=== PATIENT | male | born 1955 | race Caucasian/White ===

== ENCOUNTER 2024-09-09 19:31 | Observation (INO) | payer MEDICARE, MEDICAID, SELFPAY ==
[2024-09-09] VITALS (35 sets, daily range): BP systolic 130–160; BP diastolic 80–90; PULSE 103–108; TEMP 37.3–38.1; O2SAT 71–99; BMI 31.9
--- NOTE | 2024-09-09 19:45 | XR_ITS ---
The [address] [address] Patient Name: SANA STANLEY MRN: [id number] date: 1955 Sex: M Assigned Patient Location: ER Current Patient Location: ED.MAIN Accession/Order Number: [id number] Exam Date: 09/09/2024 19:55 Report Date: 09/09/2024 21:43 At the request of: BRYANT VAUGHN Procedure: XR chest 1V EXAMINATION:XR chest 1V INDICATION:shortness of breath COMPARISON:06/16/2019 TECHNIQUE:A single frontal view of the chest is submitted. FINDINGS: The cardiac silhouette is enlarged but stable. The pulmonary vascularity is within normal limits. No acute airspace disease has developed in the lungs. There is no costophrenic angle blunting. Similar chronic deformities are present in each distal clavicle. XR/XR chest 1V IMPRESSION: No acute cardiopulmonary process in the chest. Electronically authenticated by: LAURA BARAJAS Date: 09/09/2024 21:43
[2024-09-09 20:03] LABS: pH ABG 7.326 (7.350-7.450)
[2024-09-09 20:04] LABS: Allen Test POSITIVE (POSITIVE); Base Excess ABG 0.6 mmol/L (-2.0-2.0); Fractionated Inspired Oxygen 100 %; HCO3 ABG 26.6 mmol/L (22.0-26.0); Liters per Minute 15; O2 Mode Non rebreather; Oxygen Saturation ABG 99.1 %
[2024-09-09 20:05] LABS: Puncture Site RR
[2024-09-09] MEDS: WATER FOR INJECTION, STERILE 20 ML VIAL INJ (20:10)
[2024-09-09 20:23] LABS: Basophils Percent Auto 0.5 % (0.2-2.0); Eosinophils Absolute Auto 0.1 10^3/uL (0.0-0.7); Eosinophils Percent Auto 2.2 % (0.9-7.0); Hematocrit 39.5 % (42.0-54.0); Immature Granulocytes Abs Auto 0.02 10^3/uL (0.00-0.03); Immature Granulocytes Pct Auto 0.3 % (0.0-0.5); Lymphocytes Absolute Auto 0.9 10^3/uL (1.2-3.8); Lymphocytes Percent Auto 15.9 % (20.5-60.0); Mean Corpuscular HGB Conc 32.9 g/dL (29.9-35.2); Mean Corpuscular Hemoglobin 31.6 pg (25.9-34.0); Mean Corpuscular Volume 96.1 fL (80.0-94.0); Mean Platelet Volume 9.7 fL (9.5-13.5); Monocytes Absolute Auto 0.7 10^3/uL (0.3-0.8); Monocytes Percent Auto 11.9 % (1.7-12.0); Neutrophils Absolute Auto 4.1 10^3/uL (1.4-6.5); Neutrophils Percent Auto 69.2 % (43.0-75.0); Platelet Count 166 10^3/uL (150-450); Red Blood Count 4.11 10^6/uL (4.70-6.10); Red Cell Distribution Width 12.8 % (11.0-15.0); White Blood Count 5.9 10^3/uL (4.0-11.0)
[2024-09-09 20:30] LABS: BUN Creatinine Ratio 12.5; Calcium 8.5 mg/dL (8.5-10.1); Carbon Dioxide 28.9 mmol/L (21.0-32.0); Chloride 106 mmol/L (98-107); Estimated GFR (African America >60 (>=60 mL/min/1.73m^2); Estimated GFR (Non-African Ame >60 (>=60 mL/min/1.73m^2); Glucose 156 mg/dL (74-106); Potassium 3.9 mmol/L (3.5-5.1); Sodium 141 mmol/L (136-145)
[2024-09-09 20:37] LABS: INR 1.08; Prothrombin Time 11.4 sec (9.0-11.6)
[2024-09-09] MEDS: TRAZODONE HCL 50 MG TABLET PO (20:50)
[2024-09-09] MEDS: OLANZapine 5 MG TABLET 10 MG PO (20:50)
--- NOTE | 2024-09-09 21:26 | ED_ITS ---
HPI - Epistaxis General Chief Complaint: Epistaxis Stated Complaint: EPISTAXIS Time Seen by Provider: 09/09/24 19:38 Source: patient and caregiver Mode of arrival: ambulance History of Present Illness HPI Narrative: 69-year-old male presents here with chief complaint of nosebleed. Patient presenting here by squad with an active nosebleed from the right nares. Nursing report was not given from the long term. Patient was coughing up small clots and large clots upon arrival here to the emergency room. Patient has no history of trauma or fall per his report. Related Data Home Medications ?Medication ?Instructions ?Recorded ?Confirmed albuterol sulfate 90 mcg/actuation 2 puff inhalation .4 times a day 09/09/24 09/09/24 aerosol inhaler aspirin 81 mg tablet,delayed 81 mg PO DAILY 09/09/24 09/09/24 release atorvastatin 40 mg tablet 40 mg PO DAILY 09/09/24 09/09/24 carbidopa 10 mg-levodopa 100 mg 1 tab PO TID 09/09/24 09/09/24 tablet famotidine 20 mg tablet 20 mg PO DAILY 09/09/24 09/09/24 finasteride 5 mg tablet 5 mg PO DAILY 09/09/24 09/09/24 ibuprofen 600 mg tablet (IBU) 600 mg PO Q8H PRN pain 09/09/24 09/09/24 lithium carbonate 150 mg capsule 150 mg PO BID 09/09/24 09/09/24 losartan 25 mg tablet 25 mg PO DAILY 09/09/24 09/09/24 olanzapine 10 mg tablet 10 mg PO DAILY 09/09/24 09/09/24 olanzapine 2.5 mg tablet 2.5 mg PO DAILY 09/09/24 09/09/24 propranolol 60 mg capsule,24 60 mg PO Q24H 09/09/24 09/09/24 hr,extended release rivastigmine tartrate 3 mg capsule 3 mg PO BID 09/09/24 09/09/24 tamsulosin 0.4 mg capsule 0.4 mg PO Q24H 09/09/24 09/09/24 trazodone 50 mg tablet 25 mg PO .nightly 09/09/24 09/09/24 Allergies Allergy/AdvReac Type Severity Reaction Status Date / Time No Known Drug Allergies Allergy Verified 09/09/24 19:38 Review of Systems ROS Narrative All Systems are negative except as noted/marked.All systems reviewed and otherwise negative Status of ROS 10 or more systems reviewed and unremark able except as noted in history and below [facility] Medical History (Updated 09/09/24 @ 21:22 by Solange Acosta RN) Unspecified convulsions ?R56.9 - Unspecified convulsions (ICD-10) Tremor ?R25.1 - Tremor, unspecified (ICD-10) Alcoholic cirrhosis of liver without ascites ?K70.30 - Alcoholic cirrhosis of liver without ascites (ICD-10) COPD (chronic obstructive pulmonary disease) ?J44.9 - Chronic obstructive pulmonary disease, unspecified (ICD-10) Parkinson disease ?G20.A1 - Parkinson's disease without dyskinesia, without mention of fluctuations (ICD-10) White matter disease ?R90.82 - White matter disease, unspecified (ICD-10) Benign prostatic hyperplasia ?N40.0 - Benign prostatic hyperplasia without lower urinary tract symptoms (ICD-10) Chronic kidney disease ?N18.9 - Chronic kidney disease, unspecified (ICD-10) Iliotibial band syndrome ?M76.30 - Iliotibial band syndrome, unspecified leg (ICD-10) GERD (gastroesophageal reflux disease) ?K21.9 - Gastro-esophageal reflux disease without esophagitis (ICD-10) Hypertension ?I10 - Essential (primary) hypertension (ICD-10) Obesity ?E66.9 - Obesity, unspecified (ICD-10) Wernicke encephalopathy ?E51.2 - Wernicke's encephalopathy (ICD-10) Schizo affective schizophrenia ?F25.9 - Schizoaffective disorder, unspecified (ICD-10) Exam Narrative Exam Narrative: Nurses note and vital signs reviewed and patient is not hypoxic. General: The patient appears well and in no apparent distress. Patient is resting comfortably on cart. Skin: Warm, dry, no pallor noted. There is no rash noted. Head: Normocephalic, atraumatic Ears, Nose, Mouth, and Throat: oral mucosa is moist.active bleeding right Nares patent. Mouth without vesicles. Ear canals patent. Tm's without Erythema Cardiovascular: Regular Rate and Rhythm Respiratory: Patient is in no distress, no accessory muscle use, lungs are clear to auscultation, no wheezing, rales or rhonchi Back: non-tender, no CVA tenderness bilaterally to percussion. Musculoskeletal: The patient has no evidence of calf tenderness, no pitting edema, symmetrical pulses noted bilaterally Neurological: A&O x4, normal speech Psychiatric: Cooperative Constitutional Vital Signs, click to edit/add: Last Vital Signs Temp 100.5 F H 09/09/24 19:34 Pulse 107 H 09/09/24 19:34 Resp 24 H 09/09/24 19:34 BP 160/90 H 09/09/24 20:12 Pulse Ox 93 L 09/09/24 21:07 O2 Del Method Nonrebreather 09/09/24 20:29 O2 Flow Rate 15 09/09/24 20:29 Course Vital Signs Vital signs: Vital Signs Temperature 100.5 F H 09/09/24 19:34 Pulse Rate 107 H 09/09/24 19:34 Respiratory Rate 24 H 09/09/24 19:34 Pulse Oximetry 71 L 09/09/24 19:34 Oxygen Delivery Method Room Air 09/09/24 19:34 Temperature 100.5 F H 09/09/24 19:34 Pulse Rate 107 H 09/09/24 19:34 Respiratory Rate 24 H 09/09/24 19:34 Blood Pressure 160/90 H 09/09/24 20:12 Pulse Oximetry 93 L 09/09/24 21:07 Oxygen Delivery Method Nonrebreather 09/09/24 20:29 Oxygen Delivery Flow Rate 15 09/09/24 20:29 MDM - Epistaxis MDM Narrative Medical decision making narrative: Patient presented to the emergency room with a chief complaint of a anterior nosebleed. Rhino Rocket was placed. Bleeding was then controlled. CBC and BMP were reviewed. Patient also had a blood gas drawn at the time and his CO2 level was 50. We have been using a nonrebreather mask to help keep his blood SpO2 saturations of 90%. Patient is very adamant and keeps calling out to nurse he is not in distress. He did remove one of the Rhino Rocket's and a new Rhino Rocket was replaced. Bleeding has been controlled. Admitted to the hospital for observation due to low SpO2 saturation. Patient is a DNR CC arrest. Patient is bleeding has stopped. Patient will be admitted for observation for epistaxis and hypoxia Differential Diagnosis Differential diagnosis: Likely anterior epistaxis Medical Records Attestation: I reviewed the patient's medical records. Lab Data Attestation: I reviewed the patient's lab results. Labs: Lab Results 09/09/24 09/09/24 Range/Units 19:49 19:55 WBC 5.9 (4.0-11.0) 10^3/uL RBC 4.11 L (4.70-6.10) 10^6/uL Hgb 13.0 L (14.0-18.0) g/dL Hct 39.5 L (42.0-54.0) % MCV 96.1 H (80.0-94.0) fL MCH 31.6 (25.9-34.0) pg MCHC 32.9 (29.9-35.2) g/dL RDW 12.8 (11.0-15.0) % Plt Count 166 (150-450) 10^3/uL MPV 9.7 (9.5-13.5) fL Neut % (Auto) 69.2 (43.0-75.0) % Lymph % (Auto) 15.9 L (20.5-60.0) % [place] % (Auto) 11.9 (1.7-12.0) % Eos % (Auto) 2.2 (0.9-7.0) % Baso % (Auto) 0.5 (0.2-2.0) % Neut # (Auto) 4.1 (1.4-6.5) 10^3/uL Lymph # (Auto) 0.9 L (1.2-3.8) 10^3/uL [place] # (Auto) 0.7 (0.3-0.8) 10^3/uL Eos # (Auto) 0.1 (0.0-0.7) 10^3/uL Baso # (Auto) 0.0 (0.0-0.1) 10^3/uL Abs Immat Gran (auto) 0.02 (0.00-0.03) 10^3/uL Imm/Tot Granulo (auto) 0.3 (0.0-0.5) % PT 11.4 (9.0-11.6) sec INR 1.08 Puncture Site Rr ABG pH 7.326 L (7.350-7.450) ABG pCO2 51.0 H* (35.0-45.0) mmHg ABG pO2 127.0 H (80.0-100.0) mmHg ABG HCO3 26.6 H (22.0-26.0) mmol/L ABG O2 Saturation 99.1 % ABG Base Excess 0.6 (-2.0-2.0) mmol/L Phong Test Positive (POSITIVE) O2 Liters/Min 15 FiO2 100 % Sodium 141 (136-145) mmol/L Potassium 3.9 (3.5-5.1) mmol/L Chloride 106 (98-107) mmol/L Carbon Dioxide 28.9 (21.0-32.0) mmol/L Anion Gap 10.0 BUN 12.0 (7.0-18.0) mg/dL Creatinine 0.96 (0.70-1.30) mg/dL Est GFR ( Amer) >60 (>=60 mL/min/1.73m^2) Est GFR (Non-Af Amer) >60 (>=60 mL/min/1.73m^2) BUN/Creatinine Ratio 12.5 Glucose 156 H (74-106) mg/dL Calcium 8.5 (8.5-10.1) mg/dL Discharge Plan Discharge Chief Complaint: Epistaxis Clinical Impression: Epistaxis, Hypoxia Patient Disposition: Admitted as Observation Time of Disposition Decision: 21:21 Condition: Good
[2024-09-10] VITALS (14 sets, daily range): BP systolic 110–201; BP diastolic 58–77; PULSE 98–119; TEMP 36.6–37.6; O2SAT 88–94; BMI 31.9
[2024-09-10] MEDS: TAMSULOSIN HCL 0.4 MG CAPSULE PO (00:48)
[2024-09-10] MEDS: TEMAZEPAM 15 MG CAPSULE PO (00:48)
[2024-09-10] MEDS: CARBIDOPA/LEVODOPA 10 MG/100 MG TABLET 1 TAB PO ×2 (00:48→05:05)
[2024-09-10] MEDS: ACETAMINOPHEN 325 MG TABLET 650 MG PO (00:49)
[2024-09-10] MEDS: 0.9 % SODIUM CHLORIDE 1,000 ML 100 ML IV (02:20)
[2024-09-10] MEDS: MULTIVITAMIN TABLET 1 TAB PO ×2 (02:21→09:21)
[2024-09-10] MEDS: FOLIC ACID 1 MG TABLET PO ×2 (02:21→09:21)
[2024-09-10] MEDS: CEFAZOLIN SODIUM/DEXTROSE,ISO 2 GM/50 ML PIGGYBACK IV ×2 (02:21→09:54)
[2024-09-10] MEDS: HYDRALAZINE HCL 20 MG/ML VIAL 10 MG IVP (05:17)
[2024-09-10] MEDS: ZIPRASIDONE MESYLATE 20 MG VIAL 10 MG IM (05:18)
[2024-09-10] MEDS: FENTANYL CITRATE/PF 100 MCG/2 ML VIAL 25 MCG IV (05:46)
--- NOTE | 2024-09-10 06:58 | PC.NURSE ---
Patient removed the Rhino Rocket at 0430. Called SEBASTIÁN Palacio. She said ER Physician would come up and put a new Rhino Rocket in. Patient bleeding profusely . Placed gauze in nose until ER Dr placed a new nasal rocket. Patient tolerated well. VSS
--- NOTE | 2024-09-10 08:36 | PC.NURSE ---
pt is more awake now and is jessie to answer some of this RN questions.
[2024-09-10] MEDS: LITHIUM CARBONATE 150 MG CAPSULE PO (09:21)
[2024-09-10] MEDS: FINASTERIDE 5 MG TABLET PO (09:21)
[2024-09-10] MEDS: LOSARTAN POTASSIUM 25 MG TABLET PO (09:21)
[2024-09-10] MEDS: FAMOTIDINE 20 MG TABLET PO (09:22)
[2024-09-10] MEDS: RIVASTIGMINE TARTRATE 1.5 MG CAPSULE 3 MG PO (09:30)
[2024-09-10] MEDS: OLANZapine 5 MG TABLET 2.5 MG PO (09:30)
[2024-09-10] MEDS: FUROSEMIDE 40 MG/4 ML VIAL IVP (10:17)
[2024-09-10] MEDS: PROPRANOLOL HCL 20 MG TABLET 60 MG PO (10:19)
[2024-09-10] MEDS: IPRATROPIUM/ALBUTEROL SULFATE 3 ML AMPUL.NEB IH (11:20)
--- NOTE | 2024-09-10 12:46 | P.HP_ITS ---
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 Patient was noted to be coughing up small blood clots when he arrived. ED Provider placed a Rhino rocket for epistaxis but last night patient was agitated and confused and pulled out. Another Rhino rocket was placed with that helped control his epistaxis. However, patient was noted to be hypoxic and was admitted overnight for observation. Patient's pulse ox was as low as 85% on RA and it is suspected that he may have aspirated some blood from epistaxis that resulted in mild COPD exacerbation causing hypoxia. Patient was confused/agitated at night and required use of antipsychotics and benzodiazepines to help him calm down. However, in the morning he was comfortable, calm and answered my questions appropriately. He was treated with duonebs and given one dose of IV lasix for COPD exacerbation. His hypoxia improved and he was comfortable on later in the afternoon. Rhino-rocket was removed and there was no evidence of nasal bleed. Will discharge patient with a short course of prednisone and oral doxycycline for COPD exacerbation and prevent aspiration PNA. Opioid HPI Opioid Management Most Recent Pain and Opioid Data: Last Pain Scale 8 09/10/24 05:46 09/10/24 Last Pain Assessment 09/10/24 12:16 Last MAR Pain Assessment 09/10/24 07:24 Last ORT Total Score 3 09/10/24 00:58 09/10/24 Last ORT Risk Category Low Risk 09/10/24 00:58 09/10/24 PFSH PFS Medical History (Updated 09/10/24 @ 12:48 by Shaikh Judie MD) HLD (hyperlipidemia) ?E78.5 - Hyperlipidemia, unspecified (ICD-10) Dementia ?F03.90 - Unspecified dementia, unspecified severity, without behavioral disturbance, psychotic disturbance, mood disturbance, and anxiety (ICD-10) Unspecified convulsions ?R56.9 - Unspecified convulsions (ICD-10) Tremor ?R25.1 - Tremor, unspecified (ICD-10) Alcoholic cirrhosis of liver without ascites ?K70.30 - Alcoholic cirrhosis of liver without ascites (ICD-10) COPD (chronic obstructive pulmonary disease) ?J44.9 - Chronic obstructive pulmonary disease, unspecified (ICD-10) Parkinson disease ?G20.A1 - Parkinson's disease without dyskinesia, without mention of fluctuations (ICD-10) White matter disease ?R90.82 - White matter disease, unspecified (ICD-10) Benign prostatic hyperplasia ?N40.0 - Benign prostatic hyperplasia without lower urinary tract symptoms (ICD-10) Chronic kidney disease ?N18.9 - Chronic kidney disease, unspecified (ICD-10) Iliotibial band syndrome ?M76.30 - Iliotibial band syndrome, unspecified leg (ICD-10) GERD (gastroesophageal reflux disease) ?K21.9 - Gastro-esophageal reflux disease without esophagitis (ICD-10) Hypertension ?I10 - Essential (primary) hypertension (ICD-10) Obesity ?E66.9 - Obesity, unspecified (ICD-10) Wernicke encephalopathy ?E51.2 - Wernicke's encephalopathy (ICD-10) Schizo affective schizophrenia ?F25.9 - Schizoaffective disorder, unspecified (ICD-10) Social History (Updated 09/10/24 @ 13:01 by Shaikh Judie MD) Within the past year, how often did you have a drink containing alcohol: never Score interpretation: A score less than 4 is consistent with normal alcohol consumption. Smoking status: Former smoker Non-prescribed substance use: denies use Highest level of school completed/degree received: decline to answer Meds Home Medications and Allergies Home Medications ?Medication ?Instructions ?Recorded ?Confirmed ?Type albuterol sulfate 90 mcg/actuation 2 puff inhalation .4 times a day 09/09/24 09/09/24 History aerosol inhaler aspirin 81 mg tablet,delayed 81 mg PO DAILY 09/09/24 09/09/24 History release atorvastatin 40 mg tablet 40 mg PO DAILY 09/09/24 09/09/24 History carbidopa 10 mg-levodopa 100 mg 1 tab PO TID 09/09/24 09/09/24 History tablet famotidine 20 mg tablet 20 mg PO DAILY 09/09/24 09/09/24 History finasteride 5 mg tablet 5 mg PO DAILY 09/09/24 09/09/24 History ibuprofen 600 mg tablet (IBU) 600 mg PO Q8H PRN pain 09/09/24 09/09/24 History lithium carbonate 150 mg capsule 150 mg PO BID 09/09/24 09/09/24 History losartan 25 mg tablet 25 mg PO DAILY 09/09/24 09/09/24 History olanzapine 10 mg tablet 10 mg PO .QHS 09/09/24 09/10/24 History olanzapine 2.5 mg tablet 2.5 mg PO DAILY 09/09/24 09/09/24 History rivastigmine tartrate 3 mg capsule 3 mg PO BID 09/09/24 09/09/24 History tamsulosin 0.4 mg capsule 0.4 mg PO Q24H 09/09/24 09/09/24 History trazodone 50 mg tablet 25 mg PO .nightly 09/09/24 09/09/24 History doxycycline hyclate 100 mg tablet 100 mg PO BID 7 days #14 tabs 09/10/24 Rx prednisone 20 mg tablet 20 mg PO BID #10 tabs 09/10/24 Rx propranolol 60 mg tablet 60 mg PO DAILY 09/10/24 09/10/24 History Allergies Allergy/AdvReac Type Severity Reaction Status Date / Time No Known Drug Allergies Allergy Verified 09/09/24 19:38 Exam Constitutional Vital Signs, click to edit/add: Last Vital Signs Temp 99.6 F 09/10/24 11:13 Pulse 119 H 09/10/24 11:22 Resp 20 09/10/24 08:14 BP 118/65 09/10/24 11:13 Pulse Ox 90 L 09/10/24 12:15 O2 Del Method Room Air 09/10/24 12:15 O2 Flow Rate 2 09/10/24 11:22 FiO2 50 09/09/24 21:46 Documenting provider has reviewed patient's vital signs: yes Common normals: no apparent distress and oriented x3 General appearance: cooperative HENMT Common normals: normocephalic and head/scalp atraumatic Head and scalp: normocephalic and atraumatic Other: rhinorocket in place. dried up blood noted. Eye Common normals: conjunctivae normal and no scleral icterus Conjunctiva: conjunctiva(e) normal Respiratory Common normals: normal respiratory effort Effort & inspection: able to speak in complete sentences Auscultation: wheezes Cardio Common normals: regular rate, S1 normal heart sound and S2 normal heart sound Rate: regular rate Heart sounds: S1 normal and S2 normal GI Common normals: Normal to inspection, nondistended, normoactive bowel sounds present, soft to palpation, non-tender and no hepatosplenomegaly Palpation: soft and no hepatosplenomegaly Extremity Common normals: no clubbing, cyanosis or edema Neuro Common normals: oriented x3, moves all extremities and no focal motor deficits Psych Common normals: mental status grossly normal, denies hallucinations, denies homicidal ideation and denies suicidal ideation Results Labs Labs: Short CBC 09/09/24 Range/Units 19:49 WBC 5.9 (4.0-11.0) 10^3/uL Hgb 13.0 L (14.0-18.0) g/dL Hct 39.5 L (42.0-54.0) % Plt Count 166 (150-450) 10^3/uL BMP 09/09/24 19:49 Sodium 141 Potassium 3.9 Chloride 106 Carbon Dioxide 28.9 BUN 12.0 Creatinine 0.96 Glucose 156 H Calcium 8.5 ABG ABG results: 09/09/24 19:55 ABG pH 7.326 L ABG pCO2 51.0 H* ABG pO2 127.0 H ABG HCO3 26.6 H ABG O2 Saturation 99.1 ABG Base Excess 0.6 Assessment and Plan Assessment and Plan (1) Anterior epistaxis: Assessment and Plan: Resolved. Outpatient f.u with ENT if recurrent. (2) Acute respiratory failure with hypoxia: Assessment and Plan: Likely due to aspiration and COPD exacerbation. Resolved. Now on RA. (3) COPD exacerbation: Assessment and Plan: Mild COPD exacerbation, improved with duonebs. Will discharge on Po Prednisone. C/w albuterol as needed. (4) Parkinson disease: Assessment and Plan: Stable. C/w home medications. Qualifiers: Dyskinesia presence: with dyskinesia Fluctuating manifestations: with fluctuating manifestations Qualified Code(s): G20.B2 - Parkinson's disease with dyskinesia, with fluctuations (5) Dementia: Assessment and Plan: C/w home medications. Qualifiers: Dementia behavioral or psychological symptom: with mood disturbance Dementia severity: moderate Dementia type: Parkinson's disease Qualified Code(s): G20.A1 - Parkinson's disease without dyskinesia, without mention of fluctuations; F02.B3 - Dementia in other diseases classified elsewhere, moderate, with mood disturbance (6) Benign prostatic hyperplasia: Assessment and Plan: Urinating w/o need for catheter. C/w home medications. Qualifiers: Lower urinary tract symptom detail: incomplete bladder emptying Lower urinary tract symptom presence: symptoms present Qualified Code(s): N40.1 - Benign prostatic hyperplasia with lower urinary tract symptoms; R39.14 - Feeling of incomplete bladder emptying (7) Hypertension: Assessment and Plan: Stable BP. c/w home medications Qualifiers: Hypertension type: primary hypertension Qualified Code(s): I10 - Essential (primary) hypertension (8) HLD (hyperlipidemia): Assessment and Plan: c/w lipitor. Qualifiers: Hyperlipidemia type: unspecified Qualified Code(s): E78.5 - Hyperlipidemia, unspecified Urinary Catheter Management Urinary Catheter Management Pure Wick: Cath placed during this visit: no
--- NOTE | 2024-09-10 15:21 | PC.NURSE ---
report given to taqueria at [facility], all questions answered
--- NOTE | 2024-09-21 15:39 | CM.DCFOLLOWU ---
Patient is from [facility]
== END 2024-09-10 15:26 ==
LOC: ER 21:22 → MS 09-10 00:24
PROVIDERS: Admitting Provider Internal Medicine; Emergency Provider Student in an Organized Health Care Education/Training Program; PCP Family Medicine; Visit Provider Internal Medicine
DX: J44.1 Chronic obstructive pulmonary disease with (acute) exacerbation (principal); J96.01 Acute respiratory failure with hypoxia; R04.0 Epistaxis; G20.B2 Parkinson's disease with dyskinesia, with fluctuations; F02.B3 Dementia in other diseases classified elsewhere, moderate, with mood disturbance; N40.1 Benign prostatic hyperplasia with lower urinary tract symptoms; R39.14 Feeling of incomplete bladder emptying; E78.5 Hyperlipidemia, unspecified; Z66 Do not resuscitate; I10 Essential (primary) hypertension; K21.9 Gastro-esophageal reflux disease without esophagitis; E66.9 Obesity, unspecified; F25.9 Schizoaffective disorder, unspecified; Z79.899 Other long term (current) drug therapy; Z79.82 Long term (current) use of aspirin; Z68.31 Body mass index [BMI] 31.0-31.9, adult; Z87.891 Personal history of nicotine dependence
CPT/HCPCS: 30905; 36415; 36600; 71045; 80048; 82140; 82805; 83735; 85025; 85610; 94640; 94667; 94761; 96365; 96366; 96372; 96375; 99285; G0378; J0360; J0690; J1940; J3010; J3486

== ENCOUNTER 2024-09-24 07:20 | Emergency (ER) | payer MEDICARE, MEDICAID, SELFPAY ==
[2024-09-24 07:25] VITALS: BP 142/78; PULSE 88; TEMP 36.8; O2SAT 96; BMI 34.2
--- NOTE | 2024-09-24 07:29 | XR_ITS ---
The [address] [address] Patient Name: SANA STANLEY MRN: [id number] date: 1955 Sex: M Assigned Patient Location: ED.MAIN Current Patient Location: ER Accession/Order Number: [id number] Exam Date: 09/24/2024 07:45 Report Date: 09/24/2024 08:00 At the request of: DAVID MULLER Procedure: XR chest 1V EXAM: XR chest 1V INDICATION: shortness of breath. COMPARISON: Chest x-ray 09/09/2024 TECHNIQUE: Single frontal view of the chest FINDINGS: Stable enlargement of the cardiac silhouette. Normal pulmonary vasculature. Mild bibasilar atelectasis. No acute infiltrate. No pleural effusion or pneumothorax. No acute osseous abnormality. XR/XR chest 1V IMPRESSION: No acute cardiopulmonary process. Electronically authenticated by: VICKEY DUNBAR Date: 09/24/2024 08:00
--- NOTE | 2024-09-24 07:29 | ECG_ITS ---
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
--- NOTE | 2024-09-24 07:32 | ED.SOB1 ---
HPI - SOB/Dyspnea General Chief Complaint: Shortness of Breath/Dyspnea Stated Complaint: OTHER Time Seen by Provider: 09/24/24 07:23 Source: EMR Mode of arrival: ambulance History of Present Illness HPI Narrative: pt brought in by EMS for evaluation after the nurse at [facility] reported that his O2 sat was low and he was having trouble breathing this morning. Pt has COPD and is a DNR-CC. he also has some behavioral issues and is apparently in a special [facility] the [facility]. He described recent cough/cold symptoms. Related Data Home Medications ?Medication ?Instructions ?Recorded ?Confirmed albuterol sulfate 90 mcg/actuation 2 puff inhalation .4 times a day 09/09/24 09/24/24 aerosol inhaler aspirin 81 mg tablet,delayed 81 mg PO DAILY 09/09/24 09/24/24 release atorvastatin 40 mg tablet 40 mg PO DAILY 09/09/24 09/24/24 carbidopa 10 mg-levodopa 100 mg 1 tab PO TID 09/09/24 09/24/24 tablet famotidine 20 mg tablet 20 mg PO DAILY 09/09/24 09/24/24 finasteride 5 mg tablet 5 mg PO DAILY 09/09/24 09/24/24 ibuprofen 600 mg tablet (IBU) 600 mg PO Q8H PRN pain 09/09/24 09/24/24 lithium carbonate 150 mg capsule 150 mg PO BID 09/09/24 09/24/24 losartan 25 mg tablet 25 mg PO DAILY 09/09/24 09/24/24 olanzapine 10 mg tablet 10 mg PO .QHS 09/09/24 09/24/24 olanzapine 2.5 mg tablet 2.5 mg PO DAILY 09/09/24 09/24/24 rivastigmine tartrate 3 mg capsule 3 mg PO BID 09/09/24 09/24/24 tamsulosin 0.4 mg capsule 0.4 mg PO Q24H 09/09/24 09/24/24 trazodone 50 mg tablet 25 mg PO .nightly 09/09/24 09/24/24 propranolol 60 mg tablet 60 mg PO DAILY 09/10/24 09/24/24 Allergies Allergy/AdvReac Type Severity Reaction Status Date / Time No Known Drug Allergies Allergy Verified 09/24/24 07:34 PFS PFS Medical History (Updated 09/24/24 @ 08:24 by Gary Estevez) HLD (hyperlipidemia) ?E78.5 - Hyperlipidemia, unspecified (ICD-10) Dementia ?F03.90 - Unspecified dementia, unspecified severity, without behavioral disturbance, psychotic disturbance, mood disturbance, and anxiety (ICD-10) Unspecified convulsions ?R56.9 - Unspecified convulsions (ICD-10) Tremor ?R25.1 - Tremor, unspecified (ICD-10) Alcoholic cirrhosis of liver without ascites ?K70.30 - Alcoholic cirrhosis of liver without ascites (ICD-10) COPD (chronic obstructive pulmonary disease) ?J44.9 - Chronic obstructive pulmonary disease, unspecified (ICD-10) Parkinson disease ?G20.A1 - Parkinson's disease without dyskinesia, without mention of fluctuations (ICD-10) White matter disease ?R90.82 - White matter disease, unspecified (ICD-10) Benign prostatic hyperplasia ?N40.0 - Benign prostatic hyperplasia without lower urinary tract symptoms (ICD-10) Chronic kidney disease ?N18.9 - Chronic kidney disease, unspecified (ICD-10) Iliotibial band syndrome ?M76.30 - Iliotibial band syndrome, unspecified leg (ICD-10) GERD (gastroesophageal reflux disease) ?K21.9 - Gastro-esophageal reflux disease without esophagitis (ICD-10) Hypertension ?I10 - Essential (primary) hypertension (ICD-10) Obesity ?E66.9 - Obesity, unspecified (ICD-10) Wernicke encephalopathy ?E51.2 - Wernicke's encephalopathy (ICD-10) Schizo affective schizophrenia ?F25.9 - Schizoaffective disorder, unspecified (ICD-10) Social History (Updated 09/10/24 @ 13:01 by Shaikh Judie MD) Within the past year, how often did you have a drink containing alcohol: never Score interpretation: A score less than 4 is consistent with normal alcohol consumption. Smoking status: Former smoker Non-prescribed substance use: denies use Highest level of school completed/degree received: decline to answer Little interest or pleasure in doing things: not at all Feeling down, depressed, or hopeless: not at all Exam Narrative Exam Narrative: Nurses notes and vital signs reviewed and patient is not hypoxic. afebrile General: Well-appearing and in no apparent distress. Skin: Warm, dry, no pallor noted. Head: Normocephalic, atraumatic. Neck: Supple, non-tender. Eye: Pupils are equal, round and EOMI. No scleral icterus. Ears, Nose, Mouth, and Throat: Oral mucosa is moist. He is slightly drooling. Cardiovascular: Regular Rate and Rhythm without murmur, gallop or rub. Respiratory: No accessory muscle use or respiratory distress. Lungs with scattered central rhonchi but otherwise clear. Musculoskeletal: normal ROM, no calf or popliteal tenderness, no lower extremity edema/swelling GI: Abdomen is soft, non-distended. Normal bowel sounds. No tenderness to palpation. No rebound, guarding, or rigidity noted. Neurological: A&O x4. No cranial nerve dysfunction observed. No truncal ataxia. Moves all extremities. Sensation intact. He has resting tremor. Psychiatric: Cooperative and interactive. Normal mood and affect. Constitutional Vital Signs, click to edit/add: Last Vital Signs Temp 98.2 F 09/24/24 07:25 Pulse 88 09/24/24 08:20 Resp 22 H 09/24/24 08:20 BP 142/78 H 09/24/24 07:25 Pulse Ox 94 L 09/24/24 08:20 O2 Del Method Nasal Cannula 09/24/24 08:20 O2 Flow Rate 2 09/24/24 08:20 Course Vital Signs Vital signs: Vital Signs Temperature 98.2 F 09/24/24 07:25 Pulse Rate 88 09/24/24 07:25 Respiratory Rate 22 H 09/24/24 07:25 Blood Pressure 142/78 H 09/24/24 07:25 Pulse Oximetry 96 09/24/24 07:25 Oxygen Delivery Method Nasal Cannula 09/24/24 07:25 Oxygen Delivery Flow Rate 3 09/24/24 07:25 Temperature 98.2 F 09/24/24 07:25 Pulse Rate 88 09/24/24 08:20 Respiratory Rate 22 H 09/24/24 08:20 Blood Pressure 142/78 H 09/24/24 07:25 Pulse Oximetry 94 L 09/24/24 08:20 Oxygen Delivery Method Nasal Cannula 09/24/24 08:20 Oxygen Delivery Flow Rate 2 09/24/24 08:20 MDM - SOB/Dyspnea MDM Narrative Medical decision making narrative: Patient was kept on O2 at 3LPM NC. He was placed on mechanical repair worker and EKG obtained. Blood drawn and sent for evaluation. Portable CXR obtained. He received IV Solumedrol 125mg. CBC unremarkable. CXR negative. BMP, troponin, BNP all normal. Pt is DNR-CC. He is resting comfortably and without respiratory distress at this time. Pt discharged back to [facility] with hand written Rx order for NC O2 to be applied prn if O2 sat drops below 95%. Lab Data Attestation: I reviewed the patient's lab results. Labs: Lab Results 09/24/24 Range/Units 07:51 WBC 10.6 (4.0-11.0) 10^3/uL RBC 4.34 L (4.70-6.10) 10^6/uL Hgb 13.4 L (14.0-18.0) g/dL Hct 42.1 (42.0-54.0) % MCV 97.0 H (80.0-94.0) fL MCH 30.9 (25.9-34.0) pg MCHC 31.8 (29.9-35.2) g/dL RDW 13.4 (11.0-15.0) % Plt Count 186 (150-450) 10^3/uL MPV 9.1 L (9.5-13.5) fL Neut % (Auto) 74.7 (43.0-75.0) % Lymph % (Auto) 17.4 L (20.5-60.0) % [place] % (Auto) 6.0 (1.7-12.0) % Eos % (Auto) 1.5 (0.9-7.0) % Baso % (Auto) 0.2 (0.2-2.0) % Neut # (Auto) 7.9 H (1.4-6.5) 10^3/uL Lymph # (Auto) 1.8 (1.2-3.8) 10^3/uL [place] # (Auto) 0.6 (0.3-0.8) 10^3/uL Eos # (Auto) 0.2 (0.0-0.7) 10^3/uL Baso # (Auto) 0.0 (0.0-0.1) 10^3/uL Abs Immat Gran (auto) 0.02 (0.00-0.03) 10^3/uL Imm/Tot Granulo (auto) 0.2 (0.0-0.5) % Sodium 145 (136-145) mmol/L Potassium 4.1 (3.5-5.1) mmol/L Chloride 108 H (98-107) mmol/L Carbon Dioxide 30.7 (21.0-32.0) mmol/L Anion Gap 10.4 BUN 15.0 (7.0-18.0) mg/dL Creatinine 0.85 (0.70-1.30) mg/dL Est GFR ( Amer) >60 (>=60 mL/min/1.73m^2) Est GFR (Non-Af Amer) >60 (>=60 mL/min/1.73m^2) BUN/Creatinine Ratio 17.6 Glucose 95 (74-106) mg/dL Calcium 8.7 (8.5-10.1) mg/dL Troponin I High Sens 4.6 (4.0-76.1) pg/mL NT-Pro-B Natriuret Pep 91.0 (<=900.0) pg/mL Imaging Data Chest x-ray: Attestation: I have reviewed the pertinent imaging results. Radiologist's impression: ITS Impressions Chest X-Ray 09/24/24 07:29 IMPRESSION: No acute cardiopulmonary process. Electronically authenticated by: VICKEY DUNBAR Date: 09/24/2024 08:00 ECG Data Attestation: I personally reviewed and interpreted this ECG as follows: Interpretation: EKG interpretation: Emergency Department physician interpretation. Normal sinus rhythm at 85bpm. Left axis deviation, normal intervals and non-specific t wave changes. no ST segment elevation or depression. Discharge Plan Discharge Chief Complaint: Shortness of Breath/Dyspnea Clinical Impression: Acute exacerbation of chronic obstructive pulmonary disease Patient Disposition: Home, Self-Care Time of Disposition Decision: 08:24 Prescriptions / Home Meds: No Action aspirin 81 mg tablet,delayed release (DR/EC) 81 mg PO DAILY atorvastatin 40 mg tablet 40 mg PO DAILY carbidopa-levodopa 10-100 mg tablet 1 tab PO TID famotidine 20 mg tablet 20 mg PO DAILY finasteride 5 mg tablet 5 mg PO DAILY lithium carbonate 150 mg capsule 150 mg PO BID losartan 25 mg tablet 25 mg PO DAILY ibuprofen [IBU] 600 mg tablet 600 mg PO Q8H PRN (Reason: pain) olanzapine 10 mg tablet 10 mg PO .QHS Rx Instructions: nightly olanzapine 2.5 mg tablet 2.5 mg PO DAILY rivastigmine tartrate 3 mg capsule 3 mg PO BID tamsulosin 0.4 mg capsule 0.4 mg PO Q24H trazodone 50 mg tablet 25 mg PO .nightly albuterol sulfate 90 mcg/actuation HFA aerosol inhaler 2 puff INHALATION .4 times a day propranolol 60 mg tablet 60 mg PO DAILY Patient Comments: HOLD FOR SBP < 100 OR PULSE < 60 doxycycline hyclate 100 mg tablet 100 mg PO BID 7 Days Qty: 14 0RF prednisone 20 mg tablet 20 mg PO BID Qty: 10 0RF Print Language: Frisian Instructions: COPD (Chronic Obstructive Pulmonary Disease) (ED) Referrals: RADHA PLUMMER [Primary Care Provider] - 1 week
[2024-09-24] MEDS: METHYLPREDNISOLONE SOD SUCC PF 125 MG/2 ML VIAL IVP (07:56)
[2024-09-24 07:57] LABS: Basophils Percent Auto 0.2 % (0.2-2.0); Eosinophils Absolute Auto 0.2 10^3/uL (0.0-0.7); Eosinophils Percent Auto 1.5 % (0.9-7.0); Hematocrit 42.1 % (42.0-54.0); Hemoglobin 13.4 g/dL (14.0-18.0); Immature Granulocytes Abs Auto 0.02 10^3/uL (0.00-0.03); Immature Granulocytes Pct Auto 0.2 % (0.0-0.5); Lymphocytes Absolute Auto 1.8 10^3/uL (1.2-3.8); Lymphocytes Percent Auto 17.4 % (20.5-60.0); Mean Corpuscular HGB Conc 31.8 g/dL (29.9-35.2); Mean Corpuscular Hemoglobin 30.9 pg (25.9-34.0); Mean Platelet Volume 9.1 fL (9.5-13.5); Monocytes Absolute Auto 0.6 10^3/uL (0.3-0.8); Neutrophils Absolute Auto 7.9 10^3/uL (1.4-6.5); Neutrophils Percent Auto 74.7 % (43.0-75.0); Platelet Count 186 10^3/uL (150-450); Red Blood Count 4.34 10^6/uL (4.70-6.10); Red Cell Distribution Width 13.4 % (11.0-15.0); White Blood Count 10.6 10^3/uL (4.0-11.0)
--- NOTE | 2024-09-24 08:03 | PC.NURSE ---
Oxygen decreased to 2 lpm/NC and pulse ox. is 92-94%, denies feeling SOB.
[2024-09-24 08:20] VITALS: PULSE 88; O2SAT 94
[2024-09-24 08:20] LABS: Anion Gap 10.4; BUN Creatinine Ratio 17.6; Calcium 8.7 mg/dL (8.5-10.1); Carbon Dioxide 30.7 mmol/L (21.0-32.0); Chloride 108 mmol/L (98-107); Estimated GFR (African America >60 (>=60 mL/min/1.73m^2); Estimated GFR (Non-African Ame >60 (>=60 mL/min/1.73m^2); Glucose 95 mg/dL (74-106); Potassium 4.1 mmol/L (3.5-5.1); Sodium 145 mmol/L (136-145); Troponin I High Sensitivity 4.6 pg/mL (4.0-76.1)
[2024-09-24 08:30] VITALS: PULSE 90; O2SAT 93
[2024-09-24 09:49] LABS: Bilirubin Urine NEGATIVE (NEGATIVE); Blood Urine NEGATIVE (NEGATIVE); Clarity Urine CLEAR (CLEAR); Color Urine LT. YELLOW (YELLOW); Glucose Urine UA NEGATIVE (NEGATIVE); Ketones Urine NEGATIVE (NEGATIVE); Leukocyte Esterase Urine TRACE (NEGATIVE); Nitrite Urine POSITIVE (NEGATIVE); Protein Urine NEGATIVE (NEG/TRACE); Specific Gravity Urine 1.015 (1.005-1.025); pH Urine >=9.0 (5.0-9.0)
[2024-09-24 09:52] LABS: Urine Microscopic Indicated YES
--- NOTE | 2024-09-24 09:54 | PC.NURSE ---
[facility] arrives at this time. Report called to nurse Kyle.
[2024-09-24 10:04] LABS: Crystals Seen? Seen #/HPF (None Seen); Triple Phosphate Crystal Urine MANY
[2024-09-24 10:05] LABS: Mucus Urine NONE SEEN (NONE SEEN); RBC Urine 0-2 #/HPF (0-2)
[2024-09-24 10:06] LABS: Amorphous Sediment Urine MODERATE; Bacteria Urine SMALL #/HPF (NONE SEEN); Cast Seen? NONE SEEN #/LPF (NONE SEEN); Squamous Epithelial Cell Urine RARE #/LPF (NONE/RARE); Urine Culture Indicated YES
[2024-09-26 17:24] LABS: BOX Test Reference Lab FIRELANDS
--- NOTE | 2024-09-29 12:02 | PC.NURSE ---
Urine culture results faxed to Dr. Macias for follow up and further treatment.
== END 2024-09-24 09:55 | disposition home or self-care (01) ==
PROVIDERS: Emergency Provider Emergency Medicine; PCP Family Medicine
DX: J44.1 Chronic obstructive pulmonary disease with (acute) exacerbation (principal); N39.0 Urinary tract infection, site not specified; Z66 Do not resuscitate; Z87.891 Personal history of nicotine dependence
CPT/HCPCS: 36415; 71045; 80048; 81001; 83880; 84484; 85025; 87086; 87150; 87186; 93005; 96374; 99285; J2919

== ENCOUNTER 2025-05-16 11:26 | Outpatient (REF) | payer MEDICARE, MEDICAID, SELFPAY ==
--- OUTSIDE RECORDS SUMMARY | 2025-05-16 11:32 | XMS_ITS | Encounter Summary ---
Author Organization [facility] Address [id number] [address] [place] [address] Care Team Providers Care Class A Lineman Name Role Phone Bon Aquino MD Primary Care Provider [phone] Encounter Details Date Type Department Care Team (Late st Contact Info) Description 12/04/2024 Orders Only [facility] - [facility] [address] [place] [address] Ref Prov, [place] [address] Social History Tobacco Use Types Packs/Day Years Used Date Smoking Tobacco: Never Assessed Childcare Answer Date Recorded Childcare Unknown 03/01/2019 Employment Answer Date Recorded Employment Unknown 03/01/2019 Purpose - Life Answer Date Recorded Purpose and direction in life Unknown Sex and Gender Information Value Date Recorded Sex Assigned at Not on file Legal Sex Male 11:34 AM EDT Gender Identity Not on file Sexual Orientation Not on file documented as of this encounter Plan of Treatment Not on file documented as of this encounter Procedures Procedure Name Priority Date/Time Associated Diagnosis Comments MULTIPLE LABS Routine 09/28/2024 4:20 PM EST documented in this encounter Results * Multiple labs (09/28/2024 4:20 PM EST) us Not In System Ref Prov TX IMAGING Final Res ult MANUALLY TRANSCRIBED RESULTS documented in this encounter Visit Diagnoses Not on filedocumented in this encounter Care Teams Class A Lineman Relationship Specialty Start Date End Date Bon Aquino MD PCP - General 02/05/16 documented as of this encounter
--- OUTSIDE RECORDS SUMMARY | 2025-05-16 11:32 | XMS_ITS | Clinical Summary ---
Author Organization [facility] Address [address] [place] [address] Care Team Providers Care Commercial Loan Underwriter Name Role Phone Unavailable Primary Care Provider Unavailabl e Social History Tobacco Use Types Packs/Day Years Used Date Smoking Tobacco: Never Assessed Sex and Gender Information Value Date Recorded Sex Assigned at Not on file Legal Sex Male 10:30 PM EDT Gender Identity Not on file Sexual Orientation Not on file Last Filed Vital Signs Vital Sign Reading Time Taken Comments Blood Pressure 133/85 04/05/2020 10:00 AM EDT Pulse 88 02/06/2019 11:05 AM EDT Temperature - - Respiratory Rate - - Oxygen Saturation 89% 04/05/2020 10:01 AM EDT Inhaled Oxygen Concentration - - Weight 77.6 kg (171 lb) 04/05/2020 9:56 AM EDT Height 170.2 cm (5' 7 ) 04/05/2020 9:53 AM EDT Body Mass Index 26.78 04/05/2020 9:53 AM EDT Plan of Treatment Not on file
--- OUTSIDE RECORDS SUMMARY | 2025-05-16 11:32 | XMS_ITS | Clinical Summary ---
Author Organization [facility] Address [id number] [place] [address] Care Team Providers Care Director Systems Name Role Phone Bon Aquino MD Primary Care Provider [phone] Allergies No known active allergies Medications albuterol (VENTOLIN HFA) 90 mcg/actuation inhaler Inhale 2 puffs 4 (four) times a day. 6 Active carbidopa-levod opa (SINEMET CR) 50-200 mg per CR tablet Take 1 tablet by mouth 2 (two) times a day. 6 Active selegiline (ELDEPRYL) 5 mg capsule Take 5 mg by mouth 2 (two) times a day before meals. 6 Active lithium (ESKALITH) 450 mg CR tablet Take 450 mg by mouth daily. 6 Active lithium carbonate 300 mg capsule Take 600 mg by mouth respiratory nightly. 6 Active trihexyphenidyl (ARTANE) 5 mg tablet Take 5 mg by mouth 3 (three) times a day with meals. 6 Active nabumetone (RELAFEN) 750 mg tablet Take 1,500 mg by mouth daily. 6 Active finasteride (PROSCAR) 5 mg tablet Take 5 mg by mouth daily. 6 Active tamsulosin (FLOMAX) 0.4 mg capsule,extende d release 24hr Take 0.4 mg by mouth daily. 30min after meal 6 Active Active Problems Problem Noted Date Diagnosed Date Unspecified protein-calorie malnutrition 024 Schizoaffective disorder 06/23/2024 Wernicke's encephalopathy 06/23/2024 Chronic obstructive pulmonary disease 06/23/2024 Parkinson's disease 06/23/2024 Nicotine dependence, cigarettes, uncomplicated 1 Extrapyramidal and movement disorder, unspecifie d 06/23/2024 Iliotibial band syndrome 06/23/2024 Stage 2 chronic kidney disease due to benign hyp ertension 06/23/2024 Class 1 obesity due to exces s calories with serious comorbidity in adult 06/23/2024 Convulsions 06/23/2024 BPH with lower urinary tract symptoms without urinary obstruction 06/23/2024 White matter disease 06/23/2024 Gastroesophageal reflux disease 06/23/2024 Cognitive impairment 06/23/2024 Encounters Date Type Department Care Team Description 04/20/2025 Continuing Care [facility] - [facility] [address] [place] [address] Fabien Macias, Wernicke's encephalopathy (Primary Dx); Cognitive impairment; Schizoaffective disorder, unspecified type ([facility]); Parkinson's disease, unspecified whether dyskinesia present, unspecified whether manifestations fluctuate ([facility]); Chronic obstructive pulmonary disease, unspecified COPD type ([facility]) 04/10/2025 Continuing Care [facility] - [facility] [address] [place] [address] Fabien Macias, Wernicke's encephalopathy (Primary Dx); Parkinson's disease, unspecified whether dyskinesia present, unspecified whether manifestations fluctuate ([facility]); Chronic obstructive pulmonary disease, unspecified COPD type ([facility]) 03/09/2025 Continuing Care [facility] - [facility] [address] [place] [address] Fabien Macias DO Chronic obstructive pulmonary disease, unspecified COPD type ([facility]) (Primary Dx); Wernicke's encephalopathy; Parkinson's disease, unspecified whether dyskinesia present, unspecified whether manifestations fluctuate ([facility]) from Last 3 Months Social History Tobacco Use Types Packs/Day Years [...] Sign Reading Time Taken Comments Blood Pressure 108/74 04/20/2025 3:50 PM EDT Pulse 92 04/20/2025 3:50 PM EDT Temperature 36.6 C (97.8 F) 04/20/2025 3:50 PM EDT Respiratory Rate 18 04/20/2025 3:50 PM EDT Oxygen Saturation 94% 04/20/2025 3:50 PM EDT Inhaled Oxygen Concentration - - Weight 93.9 kg (207 lb) 04/20/2025 3:50 PM EDT Height 170.2 cm (5' 7 ) 02/08/2016 9:00 AM EDT Body Mass Index 32.42 02/08/2016 9:00 AM EDT Plan of Treatment Health Maintenance Due Date Last Done Comments Depression Screening 1967 Tobacco Screening 1965 DTaP,Tdap and Td Vaccines (1 - Tdap) 1972 Zoster (Shingles) Vaccine (1 of 2) 2003 Fall Risk Screening 2018 Influenza Vaccine 05/21/2025 Adult BMI Screening 04/10/2026 04/20/2025 Medical Devices Not on file Insurance MEDICAID [place] [employer] MEDICARE Care Teams Director Systems Relationship Specialty Start Date End Date Bon Aquino MD PCP - General 02/05/16
--- OUTSIDE RECORDS SUMMARY | 2025-05-16 11:33 | XMS_ITS | Encounter Summary ---
Author Organization [facility] Address [id number] [address] [place] [address] Care Team Providers Care Grants And Contracts Assistant Name Role Phone Bon Aquino MD Primary Care Provider [phone] Encounter Details Date Type Department Care Team (Late st Contact Info) Description 09/25/2024 Orders Only [facility] - Family Medicine [address] [place] [address] Ref Prov, [place] [address] Social History Tobacco Use Types Packs/Day Years [...] Procedure Name Priority Date/Time Associated Diagnosis Comments XR CHEST 1 VW Routine 09/24/2024 3:23 PM EST ECG 12-LEAD Routine 09/24/2024 3:20 PM EST documented in this encounter Results * X-ray chest 1 view (09/24/2024 3:23 PM EST) Anatomical Region Laterality Modality Body, Chest N/A Computed Radiogr aphy us Not In System Ref Prov IMG DIAGNOSTIC IMAGING OR DERABLES Final Result * ECG 12 lead (09/24/2024 3:20 PM EST) us Not In System Ref Prov ECG ORDERABLES Final Res ult MANUALLY TRANSCRIBED RESULTS documented in this encounter Visit Diagnoses Not on filedocumented in this encounter Care Teams Grants And Contracts Assistant Relationship Specialty Start Date End Date Bon Aquino MD PCP - General 02/05/16 documented as of this encounter
--- OUTSIDE RECORDS SUMMARY | 2025-05-16 12:28 | XMS_ITS | CCD ---
Author Organization [facility] Care Team Providers Care Piercing Specialist Name Role Phone PIYUSH KEANE Primary Care Unavailable SERAFIN, SARAH Admitting Unavailable SERAFIN, SARAH Attending Unavailable LUIS MANUEL BARROS V Consulting Unavailable MIR CUENCA Consulting Unavailable HEMEYER, EDGUADALUPE Primary Care Unavailable SERAFIN, SARAH Admitting Unavailable SERAFIN, SARAH Attending Unavailable SANAM GRUBBS Consulting Unavailable SERAFIN, SARAH Consulting Unavailable HEMEYER, EDWARD Admitting Unavailable ALEJANDRINAYER, PIYUSH Attending Unavailable LAKHWINDER, PIYUSH Consulting Unavailable Unavailable Primary Care Provider UnavailMiguel Marcus MD Primary Care Provider Piyush Keane MD Primary Care Provider Piyush Keane MD Primary Care Provider [phone] Piyush Keane MD Primary Care Provider Miguel Kessler MD Primary Care Provider [phone] Piyush Keane MD Primary Care Provider Miguel Kessler Unavailable Unavaila ble Manuela Gary Unavailable Ben Ramires Unavailable MIGUEL KESSLER Primary Care Unavailable MIGUEL KESSLER Attending Unavailable SELF, SELF Referring Unavailable MIGUEL KESSLER Primary Care Unavailable MIGUEL KESSLER Attending Unavailable SELF, SELF Referring Unavailable MIGUEL KESSLER Attending Unavailable SELF, SELF Referring Unavailable CHECO, MIGUEL Kaiser Primary Care Unavailable MIGUEL KESSLER Attending Unavailable SELF, SELF Referring Unavailable CHECO, MIGUEL Kaiser Primary Care Unavailable DAVIS BALES Attending Unavailable CHECO, MIGUEL Kaiser Primary Care Unavailable JACKOGEDARRELL, MIGUEL Kaiser Primary Care Unavailable MATT CALDWELL Attending Unavailable KALOGEROUMIGUEL Primary Care Unavailable KALOGEROU, MIGUEL Kaiser Attending Unavailable SELF, SELF Referring Unavailable KALOGEROU, MIGUEL Kaiser Primary Care Unavailable KALOGEROU, MIGUEL Kaiser Attending Unavailable SELF, SELF Referring Unavailable Piyush Keane MD Primary Care Provider [phone] LAKHWINDER, PIYUSH Multani Primary Care Unavailable ISRRAEL SUZANNE Attending Unavailable HEMEYER, PIYUSH Multani Primary Care Unavailable AGIRO, RJ Attending Unavailable WOLERY, MAVIS S Attending Unavailable WOLERY, MAVIS S Referring Unavailable HEMEYER, PIYUSH Multani Primary Care Unavailable WOLERY, MAVIS Jones Attending Unavailable WOLERY, MAVIS Jones Referring Unavailable HEMEYER, PIYUSH Multani Primary Care Unavailable WOLERY, MAVIS Jones Attending Unavailable WOLERY, MAVIS Jones Referring Unavailable HEMEYER, PIYUSH Multani Primary Care Unavailable WOLERY, MAVIS Jones Attending Unavailable WOLERY, MAVIS Jones Referring Unavailable HEMEYER, PIYUSH Multani Primary Care Unavailable WOLERY, MAVIS Jones Attending Unavailable WOLERY, MAVIS Jones Referring Unavailable HEMEYER, PIYUSH Multani Primary Care Unavailable HEMEYER, PIYUSH Multani Primary Care Unavailable HEMEYER, PIYUSH Multani Primary Care Unavailable HEMEYER, PIYUSH Multani Primary Care Unavailable AGIRO, RJ Attending Unavailable KALOGEROU, MIGUEL Primary Care Unavailable GENNARO TURCIOS Consulting Unavailable BIRDI, BEN Admitting Unavailable BIRDIBEN Attending Unavailable BIRDOwen, EBN Referring Unavailable MANUELA GARY Consulting Unavailable KALOGEDARRELL, MIGUEL Primary Care Unavailable MALOU RAMIRESET Referring Unavailable MANUELA GARY Attending Unavailable KALMIGUEL KUMAR Attending Unavaila ble KALOGEROU, MIGUEL BOOTH Primary Care Unavaila ble KALOGEROU, MIGUEL BOOTH Attending Unavaila ble KALOGEROU, MIGUEL BOOTH Primary Care Unavaila ble KALOGEROU, MIGUEL EMONY Primary Care Unavaila ble KALOGEROUMIGUEL Attending Unavaila ble Gary Estevez DO Attending Provider Gary Estevez Admitting Unavailable Gary Estevez Attending Unavailable Jared Downey Admitting Unavailab le Jared Downey Attending Unavailab le NON STAFF Primary Care Unavailable Piyush Keane MD Primary Care Provider Piyush Keane MD Primary Care Provider [phone] Hemeyer MD, Edward J Primary Care Provider Medications Current Medications Medication Drug Class(es) Dates Sig (Normalized) Sig (Original) acetaminophen 325 mg oral tablet (19 sources) Start: 06-11-2023 acetaminophen (TYLENOL) tablet 650 mg Start: 09-18-2022 acetaminophen (TYLENOL) tablet 650 mg Start: 09-18-2022 acetaminophen (TYLENOL) tablet 1,000 mg Start: 02-10-2022 take 2 tablets by mo uth every four hours as needed acetaminophen (Tylenol) 325 MG tablet Take 2 tablets by mouth every 4 hours as needed for Mild Pain. 60 tablet 5 02/10/2022 Active Start: 04-14-2021 acetaminophen (TYLENOL) 325 MG tablet [id number] actuat albuterol 0.09 mg/actuat metered dose inhaler (20 sources) beta2-Adrenergic Agonist Start: 09-19-2022 End: 09-19-2022 albuterol sulfate HFA (PROVENTIL;VENTOLIN;PROAIR) 108 (90 Base) MCG/ACT inhaler 2 puff Start: 02-08-2016 take 2 puff(s) by in halation four times daily albuterol (VENTOLIN HFA) 90 mcg/actuation inhaler Inhale 2 puffs 4 (four) times a day. 02/08/2016 Active take 2 puff(s) by mo uth four times daily albuterol sulfate HFA (VENTOLIN HFA) 108 (90 Base) MCG/ACT inhaler Ventolin HFA 90 mcg/actuation aerosol inhaler INHALE 2 PUFFS BY MOUTH 4 TIMES DAILY AT 9AM, 1PM, 5PM, AND 9PM 0 Active take 2 puff(s) by in halation four times daily Ventolin 90 mcg/inh inhalation aerosol ; 2 puff(s) inhaled 4 times a day Refills: 0 Ordered: 12-Jun-2023 Yancy Vizcarra Generic Substitution Allowed amoxicillin 875 mg / clavulanate 125 mg oral tablet (1 source) Penicillin-class Antibacterial Start: 09-23-2022 End: 09-30-2022 take 1 tablet by mouth twice daily amoxicillin-clavulanate (AUGMENTIN) 875-125 MG per tablet Take 1 tablet by mouth 2 times daily for 7 days 14 tablet 0 09/23/2022 09/30/2022 Active aspirin 81 mg delayed release oral tablet (20 sources) Platelet Aggregation Inhibitor, Nonsteroidal Anti-inflammatory Drug Start: 10-31-2021 take 1 tablet by mouth once daily aspirin EC 81 MG EC tablet Take 1 tablet by mouth daily 30 tablet 0 10/31/2021 Active atorvastatin 40 mg oral tablet (17 sources) HMG-CoA Reductase Inhibitor Start: 10-31-2021 take 1 tablet by mouth once daily atorvastatin (LIPITOR) 40 MG tablet Take 1 tablet by mouth daily 30 tablet 0 10/31/2021 Active azithromycin 250 mg oral tablet (1 source) Macrolide Antimicrobial Start: 09-23-2022 End: 09-28-2022 azithromycin (ZITHROMAX) 250 MG tablet Indications: COPD exacerbation (HCC) Take 1 tablet by mouth See Admin Instructions for 5 days 500mg on day 1 followed by 250mg on days 2 - 5 6 tablet 0 09/23/2022 09/28/2022 Active busPIRone hydrochloride 10 mg oral tablet (13 sources) Start: 02-17-2023 take 1 tablet by mouth three times daily busPIRone 10 MG tablet Take 1 tablet by mouth 3 times daily. 0 02/17/2023 Active carbidopa 50 mg / levodopa 200 mg extended release oral tablet (20 sources) Aromatic Amino Acid Decarboxylation Inhibitor, Aromatic Amino Acid Start: 05-09-2021 carbidopa-levodopa (SINEMET CR) 50-200 MG per extended release tablet Start: 02-08-2016 take 1 tablet by duglas th twice daily carbidopa-levodopa (SINEMET CR) 50-200 mg per CR tablet Take 1 tablet by mouth 2 (two) times a day. 02/08/2016 Active 0.3 ml enoxaparin sodium 100 mg/ml prefilled syringe (1 source) Low Molecular Weight Heparin Start: 09-19-2022 enoxaparin Sodium (LOVENOX) injection 30 mg finasteride 5 mg oral tablet (20 sources) 5-alpha Reductase Inhibitor Start: 02-08-2016 take 1 tablet by mouth once daily finasteride (PROSCAR) 5 mg tablet Take 5 mg by mouth daily. 02/08/2016 Active 60 actuat formoterol fumarate 0.005 mg/actuat / mometasone furoate 0.2 mg/actuat metered dose inhaler (1 source) Corticosteroid, beta2-Adrenergic Agonist Start: 09-19-2022 mometasone-formot josias (DULERA) 200-5 MCG/ACT inhaler 2 puff hydrOXYzine pamoate 25 mg oral capsule (13 sources) Antihistamine take 1 capsule by mouth once daily hydrOXYzine pamoate (VISTARIL) 25 MG capsule Take 25 mg by mouth nightly 0 Active lithium carbonate 300 mg extended release oral tablet (20 sources) Start: 09-19-2022 lithium (LITHOBID) extended release tablet 300 mg Start: 02-08-2016 take 2 capsules by m outh once daily lithium carbonate 300 mg capsule Take 600 mg by mouth respiratory nightly. 02/08/2016 Active Start: 02-08-2016 take 1 tablet by duglas th once daily lithium (ESKALITH) 450 mg CR tablet Take 450 mg by mouth daily. 02/08/2016 Active take 1 capsule by mo uth twice daily at mealtime lithium 300 MG capsule Take 300 mg by mouth 2 times daily with meals. 0 Active take 1 tablet by duglas th twice daily lithium 450 mg oral tablet, extended release ; 1 tab(s) orally 2 times a day Refills: 0 Ordered: 12-Jun-2023 Carmita Dovydas Generic Substitution Allowed End: 09-19-2022 take 1 tablet by mouth twice daily lithium 300 MG tablet lithium carbonate 300 mg tablet Take 1 tablet twice a day by oral route. 0 09/19/2022 Discontinued (LIST CLEANUP) loperamide hydrochloride 2 mg oral capsule (1 source) Opioid Agonist take 1 capsule by mouth once loperamide 2 mg oral capsule ; 2 cap(s) orally once as needed for diarrhea after consistent loose stool, them 1 capsule after each loose stool Refills: 0 Ordered: 12-Jun-2023 Carmita Dovydas Generic Substitution Allowed LORazepam 1 mg oral tablet (20 sources) Benzodiazepine Start: 02-24-2023 take 1 tablet by mouth at bedtime LORazepam 1 MG tablet Take 1 tablet by mouth at bedtime. 0 02/24/2023 Active Start: 02-08-2023 take 1 tablet by duglas th twice daily LORazepam 0.5 MG tablet Take 1 tablet by mouth 2 times daily. 0 02/08/2023 Active 50 ml magnesium sulfate 40 mg/ml injection (1 source) Start: 09-18-2022 take 2000 mg intravenously every hour as needed 2,000 mg, IntraVENous, at 25 mL/hr, Administer over 2 Hours, PRN, Other, Magnesium Replacement, Starting on Wed09/18/22 at 2033 Mg Lab Replacement Action 1.4-1.6 2 gram IVPB x 1 doses (2 grams total) 1.0-1.3 2 gram IVPB x 2 doses (4 grams total) Less than 1.0 CALL PHYSICIAN and 2 gram IVPB x 2 doses (4 grams total) Infuse at 1 gram/hr. Repeat Mag level next AM. Not for use in Patients with CrCl less than 30 mL/min. nabumetone 750 mg oral tablet (17 sources) Nonsteroidal Anti-inflammator y Drug Start: 02-08-2016 take 2 tablets by mouth once daily nabumetone (RELAFEN) 750 mg tablet Take 1,500 mg by mouth daily. 02/08/2016 Active OLANZapine 10 mg oral tablet (20 sources) Atypical Antipsychotic Start: 05-09-2021 OLANZapine (ZYPREXA) 10 MG tablet Start: 02-08-2016 End: 06-23-2024 take 2 tablets by mouth once daily OLANZapine (ZyPREXA) 10 mg tablet Take 20 mg by mouth nightly. 02/08/2016 06/23/2024 Discontinued (Therapy completed) take 1 tablet by duglas once daily OLANZapine (ZYPREXA) 2.5 MG tablet Take 1 tablet by mouth nightly 0 Active ondansetron (ZOFRAN-ODT) disintegrating tablet 4 mg (1 source) Start: 09-18-2022 ondansetron (Z OFRAN-ODT) disintegrating tablet 4 mg Potassium Chloride (1 source) Start: 09-18-2022 potassium chlo ride (KLOR-CON M) extended release tablet 40 mEq predniSONE 20 mg oral tablet (2 sources) Start: 09-24-2022 End: 09-26-2022 take 2 tablets by mouth once daily predniSONE (DELTASONE) 20 MG tablet Take 2 tablets by mouth daily for 2 days 4 tablet 0 09/24/2022 09/26/2022 Active Start: 09-20-2022 predniSONE (DE LTASONE) tablet 40 mg 24 hr propranolol hydrochloride 60 mg extended release oral capsule (2 sources) beta-Adrenergic Екатерина take 1 capsule by mouth once daily propranolol (INDERAL LA) 60 MG extended release capsule Take 1 capsule by mouth daily 0 Active 24 hr rivastigmine 0.192 mg/hr transdermal system (1 source) apply 1 dose transdermal route once daily Exelon 4.6 mg/24 hr transdermal film, extended release ; 1 patch transdermally once a day Refills: 0 Ordered: 12-Jun-2023 Yancy Vizcarra Generic Substitution Allowed selegiline hydrochloride 5 mg oral capsule (20 sources) Monoamine Oxidase Inhibitor, Monoamine Oxidase Type B Inhibitor Start: 016 take 1 capsule by mouth twice daily before mealtime selegiline (ELDEPRYL) 5 mg capsule Take 5 mg by mouth 2 (two) times a day before meals. 02/08/2016 Active 1000 ml sodium chloride 9 mg/ml injection (5 sources) Start: 023 0.9 % sodium chloride infusion Start: 09-18-2022 IntraVENous, a t 5-250 mL/hr, PRN, if patient receiving piggyback infusions and maintenance fluids are not ordered OR KVO fluids to protect IV site / prevent frequent line interruptions/ long duration, Starting on Wed09/18/22 at 2032 For piggyback infusion, administer at same rate as piggyback for a total of 25 mL. Enter 25 mL into dose field and piggyback rate into rate field of order. If piggyback is infusing at a rate less than 100 mL/hr, enter 25 mL into dose field and 100 mL/hr into rate field of order. For KVO fluids, enter rate of 20 mL/hr or less into rate field of order. Start: 09-18-2022 take 1 dose intraven ously twice daily 5-40 mL, IntraVENous, EVERY 12 HOURS SCHEDULED (2 times per day), First dose on Wed09/18/22 at 2100, Until Discontinued For Line Patency: Peripheral IV = 5 mL; Midline or Central Line = 10 mL/lumen. If following IV push medication, administer flush at same rate as the IV push. Flush volume is determined by type of infusion therapy being given. For non-viscous solutions use: Peripheral IV = 5 mL Midline or Central Line = 10 mL/lumen For viscous solutions (i.e. blood components, parenteral nutrition, contrast media, or after obtaining blood sample) use: Peripheral IV = 10 mL Midline or Central Line = 20 mL/lumen Start: 09-18-2022 take 5-40 mL intrave nously once as needed 5-40 mL, IntraVENous, PRN, Starting on Wed09/18/22 at 2032, Until Discontinued, Line Care, After every IV line use For Line Patency: Peripheral IV = 5 mL; Midline or Central Line = 10 mL/lumen. If following IV push medication, administer flush at same rate as the IV push. Flush volume is determined by type of infusion therapy being given. For non-viscous solutions use: Peripheral IV = 5 mL Midline or Central Line = 10 mL/lumen For viscous solutions (i.e. blood components, parenteral nutrition, contrast media, or after obtaining blood sample) use: Peripheral IV = 10 mL Midline or Central Line = 20 mL/lumen Start: 09-18-2022 End: 09-18-2022 0.9 % sodium chloride bolus tamsulosin hydrochloride 0.4 mg oral capsule (20 sources) alpha-Adrenergic Екатерина Start: 02-08-2016 take 1 capsule by mouth once daily 30 minutes after mealtime tamsulosin (FLOMAX) 0.4 mg capsule,extended release 24hr Take 0.4 mg by mouth daily. 30min after meal 02/08/2016 Active traZODone hydrochloride 50 mg oral tablet (8 sources) Serotonin Reuptake Inhibitor Start: 02-17-2023 take 1 tablet by mouth at bedtime traZODone 50 MG tablet Take 1 tablet by mouth at bedtime. 0 02/17/2023 Active take 1.5 tablets by mouth once daily at bedtime traZODone 50 mg oral tablet ; 1.5 tab(s) orally once a day (at bedtime) TOTAL DOSE 75MG Refills: 0 Ordered: 12-Jun-2023 Carmita jerardo Generic Substitution Allowed trihexyphenidyl hydrochloride 5 mg oral tablet (17 sources) Start: 02-08-2016 take 1 tablet by mouth three times daily at mealtime trihexyphenidyl (ARTANE) 5 mg tablet Take 5 mg by mouth 3 (three) times a day with meals. 02/08/2016 Active Completed/Discontinued Medications Medication Drug Class(es) Dates Sig (Normalized) Sig (Original) acetaminophen 325 mg / HYDROcodone bitartrate 5 mg oral tablet (1 source) Opioid Agonist Start: 02-24-2023 End: 02-24-2023 HYDROcodone-acetam inophen (NORCO) 5-325 MG per tablet 1 tablet Start: 02-24-2023 End: 02-24-2023 HYDROcodone-acetaminophen (N ORCO) 5-325 MG per tablet 1 tablet albuterol 0.833 mg/ml / ipratropium bromide 0.167 mg/ml inhalation solution (2 sources) Anticholinergic, beta2-Adrenergic Agonist Start: 09-18-2022 1 ampule, Inhal ation, EVERY 4 HOURS PRN, Starting on Wed09/18/22 at 2033, Until Discontinued, Shortness of Breath Initiate RT Bronchodilator Protocol: Yes - ED protocol Start: 09-18-2022 End: 09-18-2022 ipratropium-albuterol (DUONE B) nebulizer solution 1 ampule famotidine 20 mg oral tablet (20 sources) Histamine-2 Receptor Antagonist Start: 09-19-2022 take 20 mg by mouth once daily 20 mg, Oral, DAILY, First dose on Wed09/19/22 at 0900, Until Discontinued iopamidol (ISOVUE-370) 76 % injection 80 mL (3 sources) Start: 02-05-2024 End: 02-05-2024 iopamidol (ISOVUE-370) 76 % injection 80 mL Start: 02-19-2023 End: 02-19-2023 iopamidol (ISOVUE-370) 76 % injection 80 mL Start: 09-23-2022 End: 09-23-2022 iopamidol (ISOVUE-370) 76 % injection 80 mL losartan potassium 25 mg oral tablet (20 sources) Angiotensin 2 Receptor Екатерина Start: 09-19-2022 take 25 mg by mouth once daily 25 mg, Oral, DAILY, First dose on 09/19/22 at 0900, Until Discontinued methylPREDNISolone 40 mg injection (2 sources) Corticosteroid Start: 09-18-2022 End: 09-19-2022 40 mg, IntraVENous, DAILY, First dose on 09/19/22 at 0900 1 ml morphine sulfate 4 mg/ml cartridge (1 source) Opioid Agonist Start: 02-19-2023 End: 02-19-2023 morphine (PF) injection 4 mg Start: 02-19-2023 End: 02-19-2023 morphine (PF) injection 4 mg oseltamivir 75 mg oral capsule (1 source) Neuraminidase Inhibitor Start: 09-18-2022 End: 09-23-2022 75 mg, Oral, 2 TIMES DAILY, 10 doses, First dose on Wed09/18/22 at 2100, Last dose on Wed09/23/22 at 0900 polyethylene glycol [id number] mg powder for oral solution (1 source) Osmotic Laxative Start: 09-18-2022 17 g, Oral, D AILY PRN, Starting on Wed09/18/22 at 2033, Until Discontinued, Constipation First line therapy for constipation Problems Active Problems Problem Classification Problem Date Documented Date Episodic/Chronic Abdominal pain (1 source) Nonspecific abdominal pain; Translations: [Unspecified abdominal pain] Episodic Adjustment disorders (1 source) Grief finding; Translations: [Adjustment disorder with depressed mood] Chronic Administrative/socia l admission (1 source) Worried well; Translations: [Person with feared health complaint in whom no diagnosis is made] Episodic Alcohol-related disorders (20 sources) Alcohol abuse; Translations: [Alcohol dependence, in remission] Onset: 05-03-2021 Chronic Alcohol-related disorders (1 source) Alcoholic encephalopathy; 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, 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] 06-12-2023 Episodic Aortic; peripheral; and visceral artery aneurysms (1 source) Thoracic aortic aneurysm, without rupture; Translations: [THORACIC AORTIC ANEUR W/O RUPTURE] Onset: 03-17-2020 Chronic Asthma (1 source) Asthma; Translations: [Unspecified asthma, uncomplicated] 06-12-2023 Chronic Chronic obstructive pulmonary disease and bronchiectasis (20 sources) Mild chronic obstructive pulmonary disease; Translations: [Chronic obstructive pulmonary disease, unspecified] Onset: 05-03-2021 Chronic Delirium, dementia, and amnestic and other cognitive disorders (1 source) Unspecified dementia without behavioral disturbance; Translations: [Dementia] Onset: 06-12-2023 Chronic Diverticulosis and diverticulitis (1 source) Diverticulitis; Translations: [Diverticulitis of intestine, part unspecified, without perforation or abscess without bleeding] 06-12-2023 Chronic Epilepsy; convulsions (20 sources) Other generalized epilepsy and epileptic syndromes, not intractable, without status epilepticus; Translations: [Epilepsy, unspecified, not intractable, without status epilepticus] Onset: 01-08-2017 Chronic Esophageal disorders (20 sources) Gastroesophageal reflux disease without esophagitis; Translations: [Gastro-esophageal reflux disease without esophagitis] Onset: 05-03-2021 Chronic Essential hypertension (20 sources) Essential (primary) hypertension; Translations: [Essential hypertension] Onset: 01-08-2017 Chronic External cause codes: Fall (1 source) Unspecified fall, initial encounter; Translations: [UNSPECIFIED FALL INITIAL ENCOUNTER] Onset: 01-30-2020 Headache; including migraine (10 sources) Chronic intractable migraine without aura; Translations: [Chronic migraine without aura, intractable, without status migrainosus] Onset: 04-02-2023 04-02-2023 Chronic Heart valve disorders (4 sources) Nonrheumatic aortic (valve) insufficiency; Translations: [NONRHEUMATIC AORTIC INSUFFICIENCY] Onset: 03-13-2020 Chronic Hemorrhoids (1 source) Internal hemorrhoids; Translations: [Other hemorrhoids] 06-12-2023 Episodic Hyperplasia of prostate (20 sources) Benign prostatic hyperplasia without lower urinary tract symptoms; Translations: [Benign prostatic hyperplasia] Onset: 01-30-2020 05-03-2021 Chronic Hypertension with complications and secondary hypertension (20 sources) Hypertensive heart disease; Translations: [Hypertensive heart disease without heart failure] Onset: 03-21-2022 Chronic Influenza (2 sources) Influenza; Translations: [Influenza due to unidentified influenza virus with other respiratory manifestations] Episodic Mood disorders (1 source) Bipolar disorder, unspecified; Translations: [BIPOLAR DISORDER UNSPECIFIED] Onset: 01-30-2020 Chronic Nonspecific chest pain (2 sources) Chest pain; Translations: [Chest pain, unspecified] Onset: 02-05-2024 02-05-2024 Episodic Nutritional deficiencies (14 sources) Deficiency of macronutrients; Translations: [Unspecified protein-calorie malnutrition] Onset: 08-11-2024 08-11-2024 Chronic Nutritional deficiencies (20 sources) Wernicke's disease; Translations: [Wernicke's encephalopathy] Onset: 06-23-2024 10-15-2024 Episodic Osteoarthritis (2 sources) Unilateral primary osteoarthritis, right hip; Translations: [Osteoarthritis of right hip joint] Onset: 01-30-2020 Chronic Other aftercare (1 source) Other termination clerk (current) drug therapy; Translations: [OTH SHELTER CURRENT DRUG THERAPY] Onset: 01-30-2020 Episodic Other aftercare (1 source) manager long term care (current) use of aspirin; Translations: [SHELTER CURRENT USE OF ASPIRIN] Onset: 01-30-2020 Episodic Other hereditary and degenerative nervous system conditions (20 sources) Essential tremor; Translations: [Essential tremor] Onset: 01-08-2017 Chronic Other hereditary and degenerative nervous system conditions (20 sources) Impaired cognition; Translations: [Mild cognitive impairment, so stated] Onset: 05-03-2021 Chronic Other hereditary and degenerative nervous system conditions (2 sources) Mild cognitive impairment, so stated; Translations: [Mild cognitive impairment of uncertain or unknown etiology] Onset: 05-03-2021 Chronic Other hereditary and degenerative nervous system conditions (20 sources) Extrapyramidal disease; Translations: [Extrapyramidal and movement disorder, unspecified] Onset: 06-23-2024 06-23-2024 Chronic Other lower respiratory disease (1 source) Shortness of breath; Translations: [Shortness of breath] Onset: 02-28-2024 Episodic Other nervous system disorders (1 source) Rolon's palsy; 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] Episodic Other nervous system disorders (2 sources) Impaired cognition; Translations: [Other symptoms and signs involving cognitive functions and awareness] Onset: 06-23-2024 04-20-2025 Episodic Other non-traumatic joint disorders (3 sources) Pain in right hip; Translations: [PAIN IN RIGHT HIP] Onset: 01-27-2020 Episodic Other non-traumatic joint disorders (1 source) Hip pain; Translations: [Pain in right hip] Episodic Other non-traumatic joint disorders (1 source) Mass of shoulder region; Translations: [Other specified joint disorders, right shoulder] 06-12-2023 Episodic Other nutritional; endocrine; and metabolic disorders (6 sources) Obese class I; Translations: [Obesity, unspecified] Onset: 02-26-2023 02-26-2023 Chronic Other nutritional; endocrine; and metabolic disorders (1 source) Obesity; Translations: [Obesity, unspecified] 06-12-2023 Chronic Other nutritional; endocrine; and metabolic disorders (18 sources) Obesity caused by energy imbalance; Translations: [Class 1 obesity due to excess calories with serious comorbidity in adult] Onset: 06-23-2024 06-23-2024 Chronic Other screening for suspected conditions (not mental disorders or infectious disease) (1 source) Abnormal electrocardiogram [ECG] [EKG]; Translations: [Abnormal electrocardiogram (ECG) (EKG)] Onset: 02-28-2024 Episodic Parkinson`s disease (20 sources) Parkinson's disease; Translations: [Parkinson's disease] Onset: 01-08-2017 Chronic Parkinson`s disease (3 sources) Parkinson`s disease; Translations: [Parkinson's disease without dyskinesia, without mention of fluctuations] Onset: 05-03-2021 Respiratory failure; insufficiency; arrest (adult) (2 sources) [id number] respiratory failure; Translations: [Acute and chronic respiratory failure with hypoxia] Chronic Schizophrenia and other psychotic disorders (20 sources) Schizoaffective disorder, bipolar type; Translations: [Schizoaffective disorder, bipolar type] Onset: 01-08-2017 Chronic Septicemia (except in labor) (1 source) Sepsis, unspecified organism; Translations: [SEPSIS UNSPECIFIED ORGANISM] Onset: 06-20-2019 Sprains and strains (1 source) Sprain of other parts of lumbar spine and pelvis, initial encounter; Translations: [SPRAIN OTH PARTS LUMB SPN PELV INIT] Onset: 01-30-2020 Episodic Substance-related disorders (20 sources) Nicotine dependence, cigarettes, uncomplicated; Translations: [Nicotine dependence] Onset: 01-30-2020 Chronic Thyroid disorders (2 sources) Sick-euthyroid syndrome; Translations: [Sick-euthyroid syndrome] Onset: 01-30-2020 06-12-2023 Episodic Unclassified (20 sources) Parkinson's disease; Translations: [Parkinson's disease without dyskinesia or fluctuating manifestations] Onset: 01-08-2017 07-02-2023 Chronic Unclassified (1 source) Arthroscopy of left shoulder with repair of rotator cuff Onset: 06-12-2023 Unclassified (1 source) Complete cardiac catheterization Onset: 06-12-2023 Viral infection (1 source) Disease caused by 2019-nCoV; Translations: [COVID-19] 07-02-2023 Episodic Viral infection (2 sources) COVID-19; Translations: [COVID-19] Onset: 07-02-2023 Past or Other Problems Problem Classification Problem Date Documented Da te Episodic/Chronic Conditions associated with dizziness or vertigo (6 sources) Dizziness and giddiness; Translations: [Dizziness] Onset: 06-16-2019 Episodic Epilepsy; convulsions (18 sources) Seizure; Translations: [Unspecified convulsions] Onset: 06-23-2024 06-23-2024 Episodic Malaise and fatigue (14 sources) Weakness; Translations: [Asthenia] Onset: 06-20-2019 Episodic Other connective tissue disease (18 sources) Iliotibial band friction syndrome; Translations: [Iliotibial band syndrome, unspecified leg] Onset: 06-23-2024 06-23-2024 Episodic Other nervous system disorders (12 sources) Abnormal gait; Translations: [Unsteadiness on feet] Onset: 06-20-2021 06-20-2021 Episodic Other nervous system disorders (19 sources) White matter disease; Translations: [White matter disease, unspecified] Onset: 06-23-2024 06-12-2023 Episodic Other non-traumatic joint disorders (6 sources) Mass of joint of right shoulder; Translations: [Other specified joint disorders, right shoulder] Onset: 04-02-2023 04-02-2023 Episodic Other non-traumatic joint disorders (2 sources) Other specified joint disorders, right shoulder; Translations: [Other specified joint disorders, right shoulder] Onset: 04-02-2023 Episodic Other upper respiratory disease (1 source) Epistaxis; Translations: [Epistaxis] Onset: 08-24-2023 Episodic Other upper respiratory infections (2 sources) Acute upper respiratory infection, unspecified; Translations: [Acute upper respiratory infection, unspecified] Onset: 02-26-2023 Episodic Pneumonia (except that caused by tuberculosis or sexually transmitted disease) (1 source) Pneumonia, unspecified organism; Translations: [PNEUMONIA UNSPECIFIED ORGANISM] Onset: 06-20-2019 Episodic Respiratory failure; insufficiency; arrest (adult) (8 sources) Acute hypoxemic respiratory failure; Translations: [Acute respiratory failure with hypoxia] Onset: 09-18-2022 Episodic Schizophrenia and other psychotic disorders (3 sources) Brief psychotic disorder; Translations: [Unspecified psychosis] Onset: 06-12-2023 06-12-2023 Episodic Unclassified (1 source) inpatient psych services Onset: 06-12-2023 NEGATED: Highlighted row has not occurred!Unclassified (1 source) No Known Encounter Diagnosis Results Test Name Value Interpretation Reference Range Facility Urine Cultureon 09-24-2024 Bacteria identified Cx Nom (U) ORGANISM: Proteus mirabilis (O:PROMIR) Presto Count >100,000 Aerobic JAZMYN Charge (NMIC56) ----- SUSCEPTIBILITY ---- ORGANISM: O:PROMIR ANTIBIOTIC INTERPRETATION JAZMYN Amikacin S <16 Amoxacillin/K Clavulanate S <8 Ampicillin S <8 Ampicillin/Sulbactam S <4 Aztreonam S <4 Cefazolin S <2 Cefepime S <2 Ceftazidime S <1 Ceftazidime/Avibacta m S <4 Ceftolozane/Tazobact am S <2 Ceftriaxone S <1 Cefuroxime S <4 Ciprofloxacin R 1 Ertapenem S <0.5 Gentamicin S <2 Levofloxacin I 1 Meropenem S <1 Meropenem/Vaborbacta m S <2 Piperacillin/Tazobac sanchez S <8 Tobramycin S <2 Trimethoprim/Sulfame thoxazole S <0.5 S = SUSCEPTIBLE I = INTERMEDIATE R = RESISTANT BLANK = DATA NOT AVAILABLE, OR DRUG NOT ADVISABLE OR TESTED R* = RESISTANCE DUE TO EXTENDED SPECTRUM BETA-LACTAMASES ESBL = EXTENDED SPECTRUM BETA-LACTAMASE TFG = THYMIDINE-DEPENDENT STRAIN MARIANO = BETA-LACTAMASE POSITIVE IB = INDUCIBLE BETA-LACTAMASE. APPEARS IN PLACE OF 'S' WITH SPECIES KNOWN TO POSSESS INDUCIBLE BETA-LACTAMASES. POTENTIALLY THEY MAY BECOME RESISTANT TO ALL B-LACTAM DRUGS. PERFORMED BY: [facility] [address] [id number] PATHOLOGIST WARDROBE ASSISTANT DIANA CAT M.D. Normal [facility] Comment on above: Performed By: #### C UU #### [facility] [address] [id number] [facility] Nuclear stress test with flavia cardial perfusionon 02-28-2024 Baseline Diastolic BP 87 mmHg [facility] Baseline HR 63 bpm [facility] Baseline Systolic BP 148 mmHg [facility] Nuc Stress EF 65 % [facility] Recovery Stage 1 Duration 1 min:sec [facility] Recovery Stage 1 HR 81 bpm [facility] Recovery Stage 2 BP 142/69 mmHg [facility] Recovery Stage 2 Duration 1 min:sec [facility] Recovery Stage 2 HR 81 bpm [facility] Recovery Stage 3 BP 136/66 mmHg [facility] Recovery Stage 3 Duration 1 min:sec [facility] Recovery Stage 3 HR 80 bpm [facility] Recovery Stage 4 BP 145/67 mmHg [facility] Recovery Stage 4 Duration 2 min:sec [facility] Recovery Stage 4 HR 76 bpm [facility] Stress Stage 1 BP 144/75 mmHg [facility] Stress Stage 1 Duration 1 min:sec [facility] Stress Stage 1 HR 90 bpm [facility] Stress Stage 2 BP 145/78 mmHg [facility] Stress Stage 2 Duration 1 min:sec [facility] Stress Stage 2 HR 91 bpm [facility] Stress Stage 3 BP 153/63 mmHg [facility] Stress Stage 3 Duration 1 min:sec [facility] Stress Stage 3 HR 83 bpm [facility] Stress Target HR 150 bpm [facility] TID 1.20 [facility] Stress Combined Conclusion: The study is negative for myocardial ischemia. Findings suggest a low risk of cardiac events. Perfusion Defect: There is a mild severity left ventricular stress perfusion defect that is small to medium in size present in the inferior segment(s) that is fixed. This defect was visualized during the stress and rest phases of imaging with stress images showing better perfusion. Most likely this represents diaphragmatic attenuation. Perfusion Conclusion: TID ratio is 1.20. ECG: Resting ECG demonstrates normal sinus rhythm. Stress Test: A pharmacological stress test was performed using regadenoson (Lexiscan). Resting ECG ECG is abnormal. The ECG shows sinus rhythm, MERCHANT MARINER anterior PR age undetermined, non-specific ST-T abnormalities. Stress Findings A pharmacological stress test was performed using regadenoson (Lexiscan). The patient reached the end of the protocol. Stress ECG There were no arrhythmias during stress. No significant ST changes noted. There were no arrhythmias during recovery. No significant ST-T changes during recovery. Nuclear Study Quality Nuclear Cardiac SPECT rest then gated stress with tomographic imaging/tomography utilized for the myocardial perfusion procedure. Lexiscan was used as the stressing method and agent. (Lexiscan given via a 10 - 20 sec injection). This Single Photon Emission Computer Tomography (SPECT) study utilized tomographic imaging/tomography for the tomographic myocardial perfusion imaging performed during this study. Diaphragmatic attenuation artifact noted. Perfusion Defect There is a mild severity left ventricular stress perfusion defect that is small to medium in size present in the inferior segment(s) that is fixed. This defect was visualized during the stress and rest phases of imaging with stress images showing better perfusion. Most likely this represents diaphragmatic attenuation. Perfusion Defect Conclusion TID ratio is 1.20. Stress Function Comments Post-stress ejection fraction is 65%. Stress Combined Conclusion The study is negative for myocardial ischemia. Findings suggest a low risk of cardiac events. [facility] CV CPACS [facility] Radiology Study observation (narrative) [facility] ANION GAPon 02-05-2024 Anion gap [Moles/Vol] 10.0 mmol/L Normal 8.0-16.0 [facility] Comment on above: Result Comment: ANIO N GAP = Sodium -(Chloride + CO2) Performed By: #### B MP, OSMOL, EGFR1, ANION, CBCWD #### [facility] [address] [place] [address] Anion Gapon 02-05-2024 Anion gap [Moles/Vol] 10.0 mmol/L 8.0 - 16.0 meq/L [facility] Comment on above: ANION GAP = Sodium - (Chloride + CO2) Performed at [facility] [address] [place] [id number] BASIC METABOL PANELon 2023 Calcium [Mass/Vol] 9.0 mg/dL Normal 8.5-10.5 [facility] Comment on above: Performed By: #### B MP, OSMOL, EGFR1, ANION, CBCWD #### [facility] [address] [place] [address] Chloride [Moles/Vol] 106 mmol/L Normal 98-111 [facility] Comment on above: Performed By: #### B MP, OSMOL, EGFR1, ANION, CBCWD #### [facility] [address] [place] [address] CO2 [Moles/Vol] 26 mmol/L Normal 23-33 [facility] Comment on above: Performed By: #### B MP, OSMOL, EGFR1, ANION, CBCWD #### [email or web address] [address] [place] [address] Creatinine [Mass/Vol] 0.7 mg/dL Normal 0.4-1.2 [facility] Comment on above: Performed By: #### B MP, OSMOL, EGFR1, ANION, CBCWD #### [facility] [address] [place] [address] Glucose [Mass/Vol] 89 mg/dL Normal 70-108 [facility] Comment on above: Performed By: #### B MP, OSMOL, EGFR1, ANION, CBCWD #### [facility] [address] [place] [address] Potassium [Moles/Vol] 4.5 mmol/L Normal 3.5-5.2 [facility] Comment on above: Performed By: #### B MP, OSMOL, EGFR1, ANION, CBCWD #### [facility] [address] [place] [address] Sodium [Moles/Vol] 142 mmol/L Normal 135-145 [facility] Comment on above: Performed By: #### B MP, OSMOL, EGFR1, ANION, CBCWD #### [facility] [address] [place] [address] Urea nitrogen [Mass/Vol] 14 mg/dL Normal 7-22 [facility] Comment on above: Performed By: #### B MP, OSMOL, EGFR1, ANION, CBCWD #### [facility] [address] [place] [address] Basic metabolic 2000 panelon 02-05-2024 Calcium [Mass/Vol] 9.0 mg/dL 8.5 - 10. 5 mg/dL [facility] Comment on above: Performed at [facility] [address] [place] [address] Chloride [Moles/Vol] 106 mmol/L 98 - 111 meq/L [facility] CO2 [Moles/Vol] 26 mmol/L 23 - 33 meq/L [facility] Creatinine [Mass/Vol] 0.7 mg/dL 0.4 - 1.2 mg/dL [facility] Glucose [Mass/Vol] 89 mg/dL 70 - 108 mg/dL [facility] Potassium [Moles/Vol] 4.5 mmol/L 3.5 - 5.2 meq/L [facility] Sodium [Moles/Vol] 142 mmol/L 135 - 145 meq/L [facility] Urea nitrogen [Mass/Vol] 14 mg/dL 7 - 22 mg/dL [facility] Brain Natriuretic Peptideon 02-05-2024 Natriuretic peptide.B prohormone N-Terminal IA [Mass/Vol] 85.8 pg/mL 0.0 - 124.0 pg/mL [facility] Comment on above: Performed at [facility] [address] [place] [address] CALCULATED OSMOLALITYon 01-18 Osmolality [Osmolality] 283.1 mosm/kg Normal 275.0-300.0 [facility] Comment on above: Performed By: #### B MP, OSMOL, EGFR1, ANION, CBCWD #### [address] [address] CBC WITH DIFFERENTIALon 01-18 ABS BASOPHILS 0.0 thou/mm3 Normal 0.0-0.1 [facility] Comment on above: Performed By: #### B MP, OSMOL, EGFR1, ANION, CBCWD #### [address] [address] ABS EOSINOPHILS 0.1 thou/mm3 Normal 0.0-0.4 [facility] Comment on above: Performed By: #### B MP, OSMOL, EGFR1, ANION, CBCWD #### [place] [address] ABS IMMATURE GRANS (IG) 0.01 thou/mm3 Normal 0.00-0.07 [facility] Comment on above: Performed By: #### B MP, OSMOL, EGFR1, ANION, CBCWD #### [place] [address] ABS LYMPHOCYTES 2.4 thou/mm3 Normal 1.0-4.8 [facility] Comment on above: Performed By: #### B MP, OSMOL, EGFR1, ANION, CBCWD #### [place] [address] ABS MONOCYTES 0.6 thou/mm3 Normal 0.4-1.3 [facility] Comment on above: Performed By: #### B MP, OSMOL, EGFR1, ANION, CBCWD #### [place] [address] ABS NEUTROPHILS 3.9 thou/mm3 Normal 1.8-7.7 [facility] Comment on above: Performed By: #### B MP, OSMOL, EGFR1, ANION, CBCWD #### [place] [address] Basophils/100 WBC (Bld) 0.4 % Normal [facility] Comment on above: Performed By: #### B MP, OSMOL, EGFR1, ANION, CBCWD #### [place] [address] Eosinophils/100 WBC (Bld) 2.1 % Normal [facility] Comment on above: Performed By: #### B MP, OSMOL, EGFR1, ANION, CBCWD #### [place] [address] Erythrocyte distribution width (RBC) [Ratio] 13.2 % Normal 11.5-14.5 [facility] Comment on above: Performed By: #### B MP, OSMOL, EGFR1, ANION, CBCWD #### [address] [place] [id number] Hematocrit (Bld) [Volume fraction] 40.9 % Low 42.0-52.0 [facility] Comment on above: Performed By: #### B MP, OSMOL, EGFR1, ANION, CBCWD #### [address] [address] Hemoglobin (Bld) [Mass/Vol] 13.7 g/dL Low 14.0-18.0 [facility] Comment on above: Performed By: #### B MP, OSMOL, EGFR1, ANION, CBCWD #### [address] [address] IMMATURE GRANS (IG) 0.1 % Normal [facility] Comment on above: Performed By: #### B MP, OSMOL, EGFR1, ANION, CBCWD #### [address] [address] Lymphocytes/100 WBC (Bld) 34.0 % Normal [facility] Comment on above: Performed By: #### B MP, OSMOL, EGFR1, ANION, CBCWD #### [address] [address] MCH (RBC) [Entitic mass] 32.5 pg Normal 26.0-33.0 [facility] Comment on above: Performed By: #### B MP, OSMOL, EGFR1, ANION, CBCWD #### [address] [address] MCHC (RBC) [Mass/Vol] 33.5 g/dL Normal 32.2-35.5 [facility] Comment on above: Performed By: #### B MP, OSMOL, EGFR1, ANION, CBCWD #### [facility] [address] [place] [address] MCV (RBC) [Entitic vol] 96.9 fL High 80.0-94.0 [facility] Comment on above: Performed By: #### B MP, OSMOL, EGFR1, ANION, CBCWD #### [facility] [address] [place] [address] Monocytes/100 WBC (Bld) 8.3 % Normal [facility] Comment on above: Performed By: #### B MP, OSMOL, EGFR1, ANION, CBCWD #### [email or web address] [address] [place] [address] Neutrophils/100 WBC (Bld) 55.1 % Normal [facility] Comment on above: Performed By: #### B MP, OSMOL, EGFR1, ANION, CBCWD #### [address] [address] NRBC 0 /100 wbc Normal [facility] Comment on above: Performed By: #### B MP, OSMOL, EGFR1, ANION, CBCWD #### [address] [address] PLATELET 194 thou/mm3 Normal 130-400 [facility] Comment on above: Performed By: #### B MP, OSMOL, EGFR1, ANION, CBCWD #### [address] [address] Platelet mean volume (Bld) [Entitic vol] 9.5 fL Normal 9.4-12.4 [facility] Comment on above: Performed By: #### B MP, OSMOL, EGFR1, ANION, CBCWD #### [address] [address] RBC 4.22 mill/mm3 Low 4.70-6.10 [facility] Comment on above: Performed By: #### B MP, OSMOL, EGFR1, ANION, CBCWD #### [address] [address] RDW-SD 46.9 fL High 35.0-45.0 [facility] Comment on above: Performed By: #### B MP, OSMOL, EGFR1, ANION, CBCWD #### [facility] [address] [place] [address] WBC 7.0 thou/mm3 Normal 4.8-10.8 [facility] Comment on above: Performed By: #### B MP, OSMOL, EGFR1, ANION, CBCWD #### [facility] [address] [place] [address] CBC with Auto Differentialon 02-05-2024 Basophils (Bld) [#/Vol] 0.0 10*3/uL [facility] Basophils/100 WBC (Bld) 0.4 % [facility] Eosinophils Absolute 0.1 [facility] Eosinophils/100 WBC (Bld) 2.1 % [facility] Erythrocyte distribution width (RBC) [Entitic vol] 46.9 fL High 35.0 - 45.0 fL [facility] Erythrocyte distribution width (RBC) [Ratio] 13.2 % 11.5 - 14.5 % [facility] Hematocrit (Bld) [Volume fraction] 40.9 % Low 42.0 - 52.0 % [facility] Hemoglobin (Bld) [Mass/Vol] 13.7 g/dL Low [facility] Immature granulocytes (Bld) [#/Vol] 0.01 10*3/uL [facility] Immature granulocytes/100 WBC (Bld) 0.1 % [facility] Interpretation and review of laboratory results Abnormal [facility] Lymphocytes Absolute 2.4 [facility] Lymphocytes/100 WBC (Bld) 34.0 % [facility] MCH (RBC) [Entitic mass] 32.5 pg 26.0 - 33.0 pg [facility] MCHC (RBC) [Mass/Vol] 33.5 g/dL [facility] MCV (RBC) [Entitic vol] 96.9 fL High 80.0 - 94.0 fL [facility] Monocytes Absolute 0.6 [facility] Monocytes/100 WBC (Bld) 8.3 % [facility] Neutrophils Absolute 3.9 [facility] Neutrophils/100 WBC (Bld) 55.1 % [facility] Nucleated RBC/100 WBC (Bld) [Ratio] 0 % /100 wbc [facility] Comment on above: Performed at [facility] [address] [place] [id number] Platelet mean volume (Bld) [Entitic vol] 9.5 fL 9.4 - 12.4 fL [facility] Platelets (Bld) [#/Vol] 194 10*3/uL [facility] RBC (Bld) [#/Vol] 4.22 10*6/uL Low [facility] WBC (Bld) [#/Vol] 7.0 10*3/uL [facility] CTA Chest vessels WO and W c ontrast Sudeep 02-05-2024 1. Mild atelectatic subpleural stranding both lung bases. 2. Mildly aneurysmal ascending thoracic aorta. No dissection. 3. Findings of pulmonary arterial hypertension. This report has been created using voice recognition software. It may contain minor errors which are inherent in voice recognition technology. are inherent in voice recognition technology. [facility] RIS CONSOLIDATED Omero Chávez MD - 02/05/2024 PROCEDURE: CTA THORACIC AORTA CLINICAL INFORMATION: chest pain radiating to back, HTN COMPARISON; PROCEDURE: CTA THORACIC AORTA CLINICAL INFORMATION: chest pain radiating to back, HTN COMPARISON; 09/23/2022 TECHNIQUE: 1.5 mm axial images were obtained through the chest before and after the administration of IV contrast (ISOVUE). A non-contrast localizer was obtained. 3D reconstructions were performed on the scanner to include sagittal and coronal MIP images through the thoracic aorta.. ALL CT SCANS AT THIS FACILITY use dose modulation, iterative reconstruction, and/or weight-based dosing when appropriate to reduce radiation dose to as low as reasonably achievable. FINDINGS: Upper abdomen: Unremarkable. No gross abnormality is seen. Mediastinum and trish: No abnormally enlarged or suspicious appearing lymph nodes are seen.. Bones: No evidence for acute fracture or bone destruction.. Prior surgery left shoulder.. There is a 2.2 cm lesion in the subcutaneous tissues anterior to the lower sternum, consistent with a sebaceous cyst. Lungs: Moderate atelectatic/fibrotic stranding both lung bases. Similar finding seen on prior study. No acute infiltrates or effusions are seen. Vascular: 4.1 cm fusiform aneurysm of the ascending thoracic aorta. Prominent pulmonary trunk, consistent with pulmonary arterial hypertension. No evidence for dissection. IMPRESSION: 1. Mild atelectatic subpleural stranding both lung bases. 2. Mildly aneurysmal ascending thoracic aorta. No dissection. 3. Findings of pulmonary arterial hypertension. This report has been created using voice recognition software. It may contain minor errors which are inherent in voice recognition technology. are inherent in voice recognition technology. [facility] Radiology Study observation (narrative) [facility] EKG 12-LEADon 02-05-2024 EKG 12-LEAD 65 65 122 82 [phone] Normal sinus rhythm Left anterior fascicular block Nonspecific ST abnormality Poor R wave progression Abnormal ECG When compared with ECG of 11-JUN-2023 12:31, No significant change was found Confirmed by KAYLEIGH ZHOU MD ([id number]) on 02/05/2024 10:31:32 PM [email or web address] [email or web address] [id number]&Date=05-02-20 24&Time=15%3a35%3a28 %3a00&TestType=ECG&S ite=3&OutputType=PDF &Ext=PDF Normal [facility] GFR, ESTIMATEDon 02-05-2024 GFR/1.73 sq M.predicted MDRD (S/P/Bld) [Vol rate/Area] mL/min/{1.73_m2} Normal >60 [facility] Comment on above: Pediatric calculator link [email or web address]://www.[email or web address].org/professionals/kdoqi/gfr_[email or web address] Effective Jun 22, 2022 These results are not intended for use in patients <18 years of age. eGFR results are calculated without a race factor using the 2020 CKD-EPI equation. Careful clinical correlation is recommended, particularly when comparing to results calculated using previous equations. The CKD-EPI equation is less accurate in patients with extremes of muscle mass, extra-renal metabolism of creatinine, excessive creatine ingestion, or following therapy that affects renal tubular secretion. Performed at [facility] [address] [place] [id number] Result Comment: Pedi atric calculator link [email or web address]://www.[email or web address].org/professionals/kdoqi/gfr_[email or web address] Effective Jun 22, 2022 These results are not intended for use in patients <18 years of age. eGFR results are calculated without a race factor using the 2020 CKD-EPI equation. Careful clinical correlation is recommended, particularly when comparing to results calculated using previous equations. The CKD-EPI equation is less accurate in patients with extremes of muscle mass, extra-renal metabolism of creatinine, excessive creatine ingestion, or following therapy that affects renal tubular secretion. Performed By: #### B MP, OSMOL, EGFR1, ANION, CBCWD #### [place] [id number] HIGH SENSTIVITY TROPONINon 0 02-05-2024 HIGH SENSTIVITY TROPONIN 8 ng/L Normal 0-12 [facility] Comment on above: Result Comment: The high-sensitivity troponin T result should not be compared with other troponin methodologies. Rising or falling high-sensitivity troponin T is significant if >= 6. Performed By: #### B MP, OSMOL, EGFR1, ANION, CBCWD #### [address] [address] HIGH SENSTIVITY TROPONIN 8 ng/L Normal 0-12 [facility] Comment on above: Result Comment: The high-sensitivity troponin T result should not be compared with other troponin methodologies. Rising or falling high-sensitivity troponin T is significant if >= 6. Performed By: #### B MP, OSMOL, EGFR1, ANION, CBCWD #### [place] [address] NT PRO-B NATRIURETIC PEPTIDE on 02-05-2024 Natriuretic peptide B (Bld) [Mass/Vol] 85.8 pg/mL Normal 0.0-124.0 [facility] Comment on above: Performed By: #### N TBNP #### [place] [address] Natriuretic peptide.B prohor lynette N-Terminal IA [Mass/Vol]on 02-05-2024 [facility] I AM AT [facility] No Panel Informationon 02-04 [facility] [place] Osmolalityon 02-05-2024 Osmolality Calc [Osmolality] 283.1 [facility] I AM AT [facility] Comment on above: Performed at [facility] [employer] [facility] Medical Lab [address] [place] [address] Troponinon 02-05-2024 Troponin, High Sensitivity 8 ng/L 0 - 12 ng/L [facility] I AM AT [facility] Comment on above: The high-sensitivity troponin T result should not be compared with other troponin methodologies. Rising or falling high-sensitivity troponin T is significant if >= 6. Performed at [facility] [email or web address] [address] I AM AT [facility] Troponin, High Sensitivity 8 ng/L 0 - 12 ng/L [facility] Comment on above: The high-sensitivity troponin T result should not be compared with other troponin methodologies. Rising or falling high-sensitivity troponin T is significant if >= 6. Performed at [facility] [address] [place] [address] XR Chest 2 Viewson 4 1. Lungs hyperinflated with flattening the diaphragms, consistent with COPD. 2. Mild cardiomegaly. Prior surgery left shoulder. Abnormal widening both AC joints. Partial calcification of the coracoclavicular ligament right side. 3. Mild atelectasis/pneumoni a along both hemidiaphragms. No effusion. This report has been created using voice recognition software. It may contain minor errors which are inherent in voice recognition technology. [facility] RIS CONSOLIDATED Omero Chávez MD - 02/05/2024 PROCEDURE: XR CHEST (2 VW) CLINICAL INFORMATION: chest pain COMPARISON: 08/24/2023 TECHNIQUE: AP upright and lateral views of the chest were obtained. IMPRESSION: 1. Lungs hyperinflated with flattening the diaphragms, consistent with COPD. 2. Mild cardiomegaly. Prior surgery left shoulder. Abnormal widening both AC joints. Partial calcification of the coracoclavicular ligament right side. 3. Mild atelectasis/pneumoni a along both hemidiaphragms. No effusion. This report has been created using voice recognition software. It may contain minor errors which are inherent in voice recognition technology. [facility] Radiology Study observation (narrative) [facility] XR Chest 2 ViewsOrdered By: Omero Chávez on 02-05-2024 [facility] Work Phone: LITHIUM LEVELon 06-23-2023 DATE LAST DOSE see chart Normal [facility] Comment on above: Performed By: #### L ITHL #### [facility] [address] [place] [address] [facility] [place] [Moles/Vol] 0.29 mmol/L Low 0.60-1.20 [facility] Comment on above: Result Comment: Many variables influence therapeutic and toxic ranges; results should be interpreted in conjunction with clinical status of patient. Performed By: #### L ITHL #### [facility] [address] TIME LAST DOSE see chart [facility] Comment on above: Performed By: #### L ITHL #### [facility] [address] [place] [address] LITHIUM LEVELon 06-20-2023 DATE LAST DOSE 06-19-2023 [facility] Comment on above: Performed By: #### L ITHL #### [facility] [address] [place] [address] [place] [Moles/Vol] 0.55 mmol/L Low 0.60-1.20 [facility] Comment on above: Result Comment: Many variables influence therapeutic and toxic ranges; results should be interpreted in conjunction with clinical status of patient. Performed By: #### L ITHL #### [facility] [address] TIME LAST DOSE 0836 [facility] Comment on above: Performed By: #### L ITHL #### [facility] [address] [place] [address] MRI BRAIN W/O CONTRASTon MRI BRAIN W/O CONTRAST Patient Name: Sana Stanley MR #: [id number] Date of : 1955 Gender: M Service Type: CPGP Pt. Type: I Ordering Phys: JOSE RACHEL Admitting Phys: Family Phys: Additional CC Phys: MEDICAL IMAGING REPORT EXAM: MRI BRAIN W/O CONTRAST Exam Date: 06/18/2023 Exam Time: 13:19:03 CLINICAL HISTORY: PD TECH ACQUIRED HISTORY: Parkinson's dx, increase confusion, increase agitation, tremors w/stress, claustophobia EXAMINATION: MRI OF THE BRAIN WITHOUT CONTRAST 06/18/2023 1:19 pm TECHNIQUE: Multiplanar multisequence MRI of the brain was performed without the administration of intravenous contrast. COMPARISON: None HISTORY: Reason for exam: : PD Note: 2 - TECH HISTORY Parkinson's dx, increase confusion, increase agitation, tremors w/stress, claustophobia FINDINGS: INTRACRANIAL STRUCTURES/VENTRICLE S: There are no areas of restricted diffusion identified to suggest an acute infarct. There is no acute intracranial hemorrhage. No mass effect or midline shift is present. Multiple foci of abnormal increased T2/FLAIR signal intensity are present within the periventricular, subcortical and deep white matter of both hemispheres. There is no sellar or suprasellar mass present. There is no ventriculomegaly or abnormal extra-axial fluid collection present. The proximal portions of the anvik of [place] demonstrate normal flow voids. ORBITS: Limited evaluation of the orbits is unremarkable. SINUSES: The paranasal sinuses and mastoid air cells are clear. BONES/SOFT TISSUES: Bone marrow signal intensity is normal. IMPRESSION: 1. No acute infarct or acute intracranial process identified. 2. Moderate chronic small vessel ischemic changes. D/ / 06/18/2023 2:49:11 PM Richie Basurto MD / jaja Interpreting Provider: Richie Basurto MD Patient: Sana Stanley Date of Service: 06/18/2023 [facility] Comment on above: Performed By: #### 3 [id number] #### [facility] Medical Imaging Department [address] [place] [address] [phone] LITHIUM LEVELon 06-16-2023 DATE LAST DOSE see chart [facility] Comment on above: Order Comment: Nurse will call when ready Performed By: #### L ITHL #### [facility] [address] [place] [address] [place] [Moles/Vol] 0.69 mmol/L Normal 0.60-1.20 [facility] Comment on above: Order Comment: Nurse will call when ready Result Comment: Many variables influence therapeutic and toxic ranges; results should be interpreted in conjunction with clinical status of patient. Performed By: #### L ITHL #### [facility] [address] TIME LAST DOSE see chart [facility] Comment on above: Order Comment: Nurse will call when ready Performed By: #### L ITHL #### [facility] [address] [place] [address] FOLATE, SERUMon 06-13-2023 Folate [Mass/Vol] ng/mL Normal 4.8-24.2 [facility] Comment on above: Result Comment: Test ing performed by [facility] [address] [place] [address] Performed By: #### F OL1 #### [facility] [address] [place] [address] [place] HEMOGLOBIN A1Con 06-13-2023 Glucose [Mass/Vol] 111 mg/dL Normal 68-114 [facility] Comment on above: Performed By: #### H A1C #### WARDROBE ASSISTANT: SAÚL Quintero DAMIAN [facility] [address] [place] [address] HbA1c (Bld) [Mass fraction] 5.5 % Normal 4.0-5.6 [facility] Comment on above: Result Comment: Hemo globin A1C level between 5.7% and 6.4% indicates prediabetes. Hemoglobin A1C level greater than or equal to 6.5% indicates diabetes. Hemoglobin A1C method utilizes NGSP/DCCT standardized equation. Performed By: #### H A1C #### WARDROBE ASSISTANT: SAÚL Quintero DAMIAN [facility] [address] [place] [address] HbA1c (Bld) [Mass fraction]o n 06-13-2023 Average glucose Estimated from glycated hemoglobin (Bld) [Mass/Vol] 111 mg/dL Normal 68 - 114 mg/dL [facility] Other Phone: LIPID PROFILEon 06-13-2023 CARDIAC RISK 3 {ratio} Normal 0-5 [facility] Comment on above: Performed By: #### L IP #### WARDROBE ASSISTANT: SAÚL Quintero DAMIAN [facility] [address] [place] [address] Cholesterol [Mass/Vol] 110 mg/dL Normal 0-200 [facility] Comment on above: Performed By: #### L IP #### WARDROBE ASSISTANT: SAÚL Quintero DAMIAN [facility] [address] [place] [address] Cholesterol in LDL [Mass/Vol] 46 mg/dL Normal 0-100 [facility] Comment on above: Performed By: #### L IP #### WARDROBE ASSISTANT: SAÚL SALGADO [facility] [address] [place] [address] Cholesterol in VLDL [Mass/Vol] 22 mg/dL Normal 0-40 [facility] Comment on above: Performed By: #### L IP #### WARDROBE ASSISTANT: SAÚL SALGADO [facility] [address] [place] [address] HDL-CHOL 42 mg/dL Normal 40-60 [facility] Comment on above: Result Comment: NCEP Guidelines: HDL < 40 mg/dl is a major risk factor for CHD. HDL > 60 mg/dl is a negative risk factor for CHD. Performed By: #### L IP #### WARDROBE ASSISTANT: SAÚL SALGADO [facility] [address] [place] [address] Triglyceride [Mass/Vol] 112 mg/dL Normal 0-150 [facility] Comment on above: Performed By: #### L IP #### WARDROBE ASSISTANT: SAÚL SALGADO [facility] [address] [place] [address] Laboratory - Chemistry and C hemistry - challengeon 06-13-2023 Cobalamin (Vitamin B12) [Mass/Vol] 294 pg/mL 211 - 911 pg/mL [facility] Other Phone: Comment on above: Testing performed by [facility] [address] [place] [address] Folate [Mass/Vol] ng/mL 4.8 - 24.2 ng/mL [facility] Other Phone: Comment on above: Testing performed by [facility] [address] [place] [address] Laboratory - Hematology and Cell countson 06-13-2023 HbA1c (Bld) [Mass fraction] 5.5 % Normal 4.0 - 5.6 % [facility] Other Phone: Comment on above: Hemoglobin A1C level between 5.7% and 6.4% indicates prediabetes.Hemoglobin A1C level greater than or equal to 6.5% indicates diabetes. Hemoglobin A1C method utilizes NGSP/DCCT standardized equation. Lipid 1996 panelon 3 Cholesterol [Mass/Vol] 110 mg/dL Normal 0 - 200 mg/dL [facility] Other Phone: Cholesterol in HDL [Mass/Vol] 42 mg/dL Normal 40 - 60 mg/dL [facility] Other Phone: Comment on above: NCEP Guidelines: HDL < 40 mg/dl is a major risk factor for CHD. HDL > 60 mg/dl is a negative risk factor for CHD. Cholesterol in LDL [Mass/Vol] 46 mg/dL Normal 0 - 100 mg/dL [facility] Other Phone: Cholesterol in VLDL [Mass/Vol] 22 mg/dL Normal 0 - 40 mg/dL [facility] Other Phone: Cholesterol.total/C holesterol in HDL [Mass ratio] 3 {ratio} Normal 0 - 5 {ratio} [facility] Other Phone: Triglyceride [Mass/Vol] 112 mg/dL Normal 0 - 150 mg/dL [facility] Other Phone: TSH DL <= 0.005 mIU/L Qnon 0 06-13-2023 TSH Qn 2.79 u[IU]/mL Normal 0.27 - 4.20 u[IU]/mL [facility] Other Phone: TSH REFLEX FT4 IF IND.on TSH, ULTRASENSITIVE 2.79 u[IU]/mL Normal 0.27-4.20 [facility] Comment on above: Performed By: #### T SHIF #### WARDROBE ASSISTANT: SAÚL SALGADO [facility] [address] [place] [address] VITAMIN B12 LEVELon 06-13-20 Cobalamin (Vitamin B12) [Mass/Vol] 294 pg/mL Normal 211-911 [facility] Comment on above: Result Comment: Test ing performed by [facility] [address] [place] [address] Performed By: #### V TB12 #### [facility] [address] [place] [address] [place] COVID-19 PCRon 06-12-2023 COVL Not detected Normal NOT DETECTED [facility] Comment on above: Order Comment: DOCUMENT IMAGING MANAGER or Nasal swab in viral transport media. Result Comment: Test ing was performed using JOESPH Loren SARS-CoV-2 & Influenza A/B nucleic acid assay. This test is a multiplex Real-Time Reverse Transcriptase Polymerase Chain Reaction (RT-PCR)-based in vitro diagnostic test intended for the qualitative detection of nucleic acids from SARS-CoV-2, influenza A, and influenza B in nasopharyngeal and nasal swab specimens for use under the FDA's Emergency Use Authorization (EUA) only. Negative results do not preclude SARS-CoV-2 infection and should not be used as the sole basis for patient management decisions. Negative results must be combined with clinical observations, patient history, and epidemiological information. Positive results are indicative of the presence of SARS-CoV-2, Influenza A, and/or Influenza B RNA; clinical correlation with patient history and other diagnostic information is necessary to determine patient infection status. Positive results do not rule out bacterial infection or co-infection with other pathogens. Note: SARS-CoV-2 negative results should be considered presumptive in samples that have a positive influenza B result. Additionally, Influenza A and Influenza B negative results should be considered presumptive in samples that have a positive SARS-CoV-2 result. Consider re-testing with an alternate FDA-approved test if clinically indicated. Performed By: #### 1 [id number], [id number] #### [facility] [place] [address] INFLUENZA A/B ANTIGEN,DNAon 06-12-2023 FLUAV Ag IA Ql (Nph) Not detected NOT DETECTED [facility] FLUBV Ag IA Ql (Nph) Not detected NOT DETECTED [facility] Influenza A+Bon 06-12-2023 INFLUAL Not detected Normal NOT DETECTED [facility] Comment on above: Order Comment: DOCUMENT IMAGING MANAGER or Nasal swab in viral transportmedia. Performed By: #### 1 [id number], [id number] #### [facility] [address] [place] [address] INFLUBL Not detected Normal NOT DETECTED [facility] Comment on above: Order Comment: DOCUMENT IMAGING MANAGER or Nasal swab in viral transportmedia. Performed By: #### 1 [id number], [id number] #### [facility] [address] [facility] [place] [address] SARS-COV-2 PCR-NASOPHARYNGEA Brandon 06-12-2023 SARS-CoV-2 (COVID-19) RNA JAVI+probe Ql (Resp) Not detected NOT DETECTED [facility] Comment on above: Testing was performe d using JOESPH Loren SARS-CoV-2 & Influenza A/B nucleic acid assay. This test is a multiplex Real-Time Reverse Transcriptase Polymerase Chain Reaction (RT-PCR)-based in vitro diagnostic test intended for the qualitative detection of nucleic acids from SARS-CoV-2, influenza A, and influenza B in nasopharyngeal and nasal swab specimens for use under the FDA's Emergency Use Authorization (EUA) only. Negative results do not preclude SARS-CoV-2 infection and should not be used as the sole basis for patient management decisions. Negative results must be combined with clinical observations, patient history, and epidemiological information. Positive results are indicative of the presence of SARS-CoV-2, Influenza A, and/or Influenza B RNA; clinical correlation with patient history and other diagnostic information is necessary to determine patient infection status. Positive results do not rule out bacterial infection or co-infection with other pathogens. Note: SARS-CoV-2 negative results should be considered presumptive in samples that have a positive influenza B result. Additionally, Influenza A and Influenza B negative results should be considered presumptive in samples that have a positive SARS-CoV-2 result. Consider re-testing with an alternate FDA-approved test if clinically indicated. [facility] ANION GAPon 06-11-2023 Anion gap [Moles/Vol] 6.0 mmol/L Low 8.0-16.0 [facility] Comment on above: Result Comment: ANIO N GAP = Sodium -(Chloride + CO2) Performed By: #### B MP, OSMOL, EGFR1, ANION, CBCWD #### [facility] [address] [place] [address] Anion Gapon 06-11-2023 Anion gap [Moles/Vol] 6.0 mmol/L Low 8.0 - 16.0 meq/L [facility] Comment on above: ANION GAP = Sodium - (Chloride + CO2) Performed at [facility] [address] [place] [address] Anion gap [Moles/Vol]on 05-22 Interpretation and review of laboratory results Abnormal [facility] BASIC METABOL PANELon 2022 Calcium [Mass/Vol] 9.3 mg/dL Normal 8.5-10.5 [facility] Comment on above: Performed By: #### B MP, OSMOL, EGFR1, ANION, CBCWD #### [facility] [address] [place] [address] Chloride [Moles/Vol] 106 mmol/L Normal 98-111 [facility] Comment on above: Performed By: #### B MP, OSMOL, EGFR1, ANION, CBCWD #### [facility] [address] [place] [address] CO2 [Moles/Vol] 27 mmol/L Normal 23-33 [facility] Comment on above: Performed By: #### B MP, OSMOL, EGFR1, ANION, CBCWD #### [facility] [address] [place] [address] Creatinine [Mass/Vol] 0.8 mg/dL Normal 0.4-1.2 [facility] Comment on above: Performed By: #### B MP, OSMOL, EGFR1, ANION, CBCWD #### [facility] [address] [place] [address] Glucose [Mass/Vol] 101 mg/dL Normal 70-108 [facility] Comment on above: Performed By: #### B MP, OSMOL, EGFR1, ANION, CBCWD #### [facility] [address] [place] [address] Potassium [Moles/Vol] 4.7 mmol/L Normal 3.5-5.2 [facility] Comment on above: Performed By: #### B MP, OSMOL, EGFR1, ANION, CBCWD #### [facility] [address] [place] [address] Sodium [Moles/Vol] 139 mmol/L Normal 135-145 [facility] Comment on above: Performed By: #### B MP, OSMOL, EGFR1, ANION, CBCWD #### [facility] [address] [place] [address] Urea nitrogen [Mass/Vol] 14 mg/dL Normal 7-22 [facility] Comment on above: Performed By: #### B MP, OSMOL, EGFR1, ANION, CBCWD #### [facility] [address] [place] [address] Basic metabolic 2000 panelon 06-11-2023 Calcium [Mass/Vol] 9.3 mg/dL 8.5 - 10. 5 mg/dL [facility] Comment on above: Performed at [facility] [address] [place] [address] Chloride [Moles/Vol] 106 mmol/L 98 - 111 meq/L [facility] CO2 [Moles/Vol] 27 mmol/L 23 - 33 meq/L [facility] Creatinine [Mass/Vol] 0.8 mg/dL 0.4 - 1.2 mg/dL [facility] Glucose [Mass/Vol] 101 mg/dL 70 - 108 mg/dL [facility] Potassium [Moles/Vol] 4.7 mmol/L 3.5 - 5.2 meq/L [facility] Sodium [Moles/Vol] 139 mmol/L 135 - 145 meq/L [facility] Urea nitrogen [Mass/Vol] 14 mg/dL 7 - 22 mg/dL [facility] CALCULATED OSMOLALITYon 05-22 Osmolality [Osmolality] 278.2 mosm/kg Normal 275.0-300.0 [facility] Comment on above: Performed By: #### B MP, OSMOL, EGFR1, ANION, CBCWD #### [facility] [employer] [address] [place] [address] CBC WITH DIFFERENTIALon 05-22 ABS BASOPHILS 0.0 thou/mm3 Normal 0.0-0.1 [facility] Comment on above: Performed By: #### B MP, OSMOL, EGFR1, ANION, CBCWD #### [facility] [address] [place] [address] ABS EOSINOPHILS 0.1 thou/mm3 Normal 0.0-0.4 [facility] Comment on above: Performed By: #### B MP, OSMOL, EGFR1, ANION, CBCWD #### [facility] [address] [place] [address] ABS IMMATURE GRANS (IG) 0.02 thou/mm3 Normal 0.00-0.07 [facility] Comment on above: Performed By: #### B MP, OSMOL, EGFR1, ANION, CBCWD #### [address] [address] ABS LYMPHOCYTES 1.9 thou/mm3 Normal 1.0-4.8 [facility] Comment on above: Performed By: #### B MP, OSMOL, EGFR1, ANION, CBCWD #### [address] [address] ABS MONOCYTES 0.6 thou/mm3 Normal 0.4-1.3 [facility] Comment on above: Performed By: #### B MP, OSMOL, EGFR1, ANION, CBCWD #### [address] [address] ABS NEUTROPHILS 4.8 thou/mm3 Normal 1.8-7.7 [facility] Comment on above: Performed By: #### B MP, OSMOL, EGFR1, ANION, CBCWD #### [address] [address] Basophils/100 WBC (Bld) 0.4 % Normal [facility] Comment on above: Performed By: #### B MP, OSMOL, EGFR1, ANION, CBCWD #### [address] [address] Eosinophils/100 WBC (Bld) 1.1 % Normal [facility] Comment on above: Performed By: #### B MP, OSMOL, EGFR1, ANION, CBCWD #### [facility] [address] [place] [address] Erythrocyte distribution width (RBC) [Ratio] 13.5 % Normal 11.5-14.5 [facility] Comment on above: Performed By: #### B MP, OSMOL, EGFR1, ANION, CBCWD #### [facility] [address] [place] [address] Hematocrit (Bld) [Volume fraction] 44.0 % Normal 42.0-52.0 [facility] Comment on above: Performed By: #### B MP, OSMOL, EGFR1, ANION, CBCWD #### [address] [address] Hemoglobin (Bld) [Mass/Vol] 14.2 g/dL Normal 14.0-18.0 [facility] Comment on above: Performed By: #### B MP, OSMOL, EGFR1, ANION, CBCWD #### [address] [address] IMMATURE GRANS (IG) 0.3 % Normal [facility] Comment on above: Performed By: #### B MP, OSMOL, EGFR1, ANION, CBCWD #### [address] [address] Lymphocytes/100 WBC (Bld) 25.2 % Normal [facility] Comment on above: Performed By: #### B MP, OSMOL, EGFR1, ANION, CBCWD #### [address] [address] MCH (RBC) [Entitic mass] 32.7 pg Normal 26.0-33.0 [facility] Comment on above: Performed By: #### B MP, OSMOL, EGFR1, ANION, CBCWD #### [address] [address] MCHC (RBC) [Mass/Vol] 32.3 g/dL Normal 32.2-35.5 [facility] Comment on above: Performed By: #### B MP, OSMOL, EGFR1, ANION, CBCWD #### [address] [address] MCV (RBC) [Entitic vol] 101.4 fL High 80.0-94.0 [facility] Comment on above: Performed By: #### B MP, OSMOL, EGFR1, ANION, CBCWD #### [address] [address] Monocytes/100 WBC (Bld) 8.5 % Normal [facility] Comment on above: Performed By: #### B MP, OSMOL, EGFR1, ANION, CBCWD #### [address] [address] Neutrophils/100 WBC (Bld) 64.5 % Normal [facility] Comment on above: Performed By: #### B MP, OSMOL, EGFR1, ANION, CBCWD #### [place] [address] NRBC 0 /100 wbc Normal [facility] Comment on above: Performed By: #### B MP, OSMOL, EGFR1, ANION, CBCWD #### [place] [address] PLATELET 200 thou/mm3 Normal 130-400 [facility] Comment on above: Performed By: #### B MP, OSMOL, EGFR1, ANION, CBCWD #### [facility] [address] [place] [address] Platelet mean volume (Bld) [Entitic vol] 9.2 fL Low 9.4-12.4 [facility] Comment on above: Performed By: #### B MP, OSMOL, EGFR1, ANION, CBCWD #### [place] [address] RBC 4.34 mill/mm3 Low 4.70-6.10 [facility] Comment on above: Performed By: #### B MP, OSMOL, EGFR1, ANION, CBCWD #### [place] [address] RDW-SD 50.9 fL High 35.0-45.0 [facility] Comment on above: Performed By: #### B MP, OSMOL, EGFR1, ANION, CBCWD #### [place] [address] WBC 7.5 thou/mm3 Normal 4.8-10.8 [facility] Comment on above: Performed By: #### B MP, OSMOL, EGFR1, ANION, CBCWD #### [facility] [address] [place] [address] CBC with Auto Differentialon 06-11-2023 Basophils (Bld) [#/Vol] 0.0 10*3/uL [facility] [facility] Eosinophils Absolute 0.1 [facility] Erythrocyte distribution width (RBC) [Entitic vol] 50.9 fL High 35.0 - 45.0 fL [facility] Immature granulocytes (Bld) [#/Vol] 0.02 10*3/uL [facility] Immature granulocytes/100 WBC (Bld) 0.3 % [facility] Interpretation and review of laboratory results Abnormal [facility] Lymphocytes Absolute 1.9 [facility] Monocytes Absolute 0.6 [facility] Nucleated RBC/100 WBC (Bld) [Ratio] 0 % /100 wbc [facility] Comment on above: Performed at [facility] [address] [place] [address] Platelets (Bld) [#/Vol] 200 10*3/uL [facility] RBC (Bld) [#/Vol] 4.34 10*6/uL Low [facility] Segs Absolute 4.8 [facility] WBC (Bld) [#/Vol] 7.5 10*3/uL [facility] EKG 12-LEADon 06-11-2023 EKG 12-LEAD 79 79 158 80 [phone] Normal sinus rhythm Left axis deviation Abnormal ECG When compared with ECG of 18-SEP-2022 17:04, Ventricular rate has decreased BY 39 BPM Confirmed by CLARENCE BUSTILLO ([id number]) on 06/11/2023 6:42:45 PM [email or web address]?[email or web address] teTime?[email or web address]=[id number]&Date=11-06-20 23&Time=12%3a31%3a29 %3a00&TestType=ECG&S ite=3&OutputType=PDF &Ext=PDF Normal [facility] GFR, ESTIMATEDon 06-11-2023 GFR/1.73 sq M.predicted MDRD (S/P/Bld) [Vol rate/Area] mL/min/{1.73_m2} Normal >60 [facility] Comment on above: Result Comment: Shayna atric calculator link https://www.kidney.org/professionals/kdoqi/gfr_calculatorped Effective Jun 22, 2022 These results are not intended for use in patients <18 years of age. eGFR results are calculated without a race factor using the 2020 CKD-EPI equation. Careful clinical correlation is recommended, particularly when comparing to results calculated using previous equations. The CKD-EPI equation is less accurate in patients with extremes of muscle mass, extra-renal metabolism of creatinine, excessive creatine ingestion, or following therapy that affects renal tubular secretion. Performed By: #### B MP, OSMOL, EGFR1, ANION, CBCWD #### [email or web address] [address] [place] [address] Glomerular Filtration Rate, Estimatedon 06-11-2023 GFR/1.73 sq M.predicted MDRD (S/P/Bld) [Vol rate/Area] - [facility] Comment on above: Pediatric calculator link https://www.kidney.org/professionals/kdoqi/gfr_calculatorped Effective Jun 22, 2022 These results are not intended for use in patients <18 years of age. eGFR results are calculated without a race factor using the 2020 CKD-EPI equation. Careful clinical correlation is recommended, particularly when comparing to results calculated using previous equations. The CKD-EPI equation is less accurate in patients with extremes of muscle mass, extra-renal metabolism of creatinine, excessive creatine ingestion, or following therapy that affects renal tubular secretion. Performed at [facility] [address] [address] HEPATIC FUNCTION PANELon Albumin [Mass/Vol] 4.1 g/dL Normal 3.5-5.1 [facility] Comment on above: Performed By: #### H EPPA, TSH3, HSTRP, LACDS #### [email or web address] [address] [address] ALP [Catalytic activity/Vol] 93 U/L Normal 38-126 [facility] Comment on above: Performed By: #### H EPPA, TSH3, HSTRP, LACDS #### [email or web address] [address] [place] [address] ALT [Catalytic activity/Vol] 11 U/L Normal 11-66 [facility] Comment on above: Performed By: #### H EPPA, TSH3, HSTRP, LACDS #### [email or web address] [address] [place] [address] AST [Catalytic activity/Vol] 15 U/L Normal 5-40 [facility] Comment on above: Performed By: #### H EPPA, TSH3, HSTRP, LACDS #### [facility] [address] [place] [address] Bilirubin [Mass/Vol] 0.4 mg/dL Normal 0.3-1.2 [facility] Comment on above: Performed By: #### H EPPA, TSH3, HSTRP, LACDS #### [facility] [email or web address] [address] [address] Bilirubin.indirect [Mass/Vol] mg/dL Normal 0.0-0.3 [facility] Comment on above: Performed By: #### H EPPAwilda, TSH3, HSTRP, LACDS #### [address] [address] Protein [Mass/Vol] 6.5 g/dL Normal 6.1-8.0 [facility] Comment on above: Performed By: #### H EPPA, TSH3, HSTRP, LACDS #### [employer] [address] [address] HIGH SENSTIVITY TROPONINon 0 06-11-2023 HIGH SENSTIVITY TROPONIN 8 ng/L Normal 0-12 [facility] Comment on above: Result Comment: The high-sensitivity troponin T result should not be compared with other troponin methodologies. Rising or falling high-sensitivity troponin T is significant if >= 6. Performed By: #### H EPPA, TSH3, HSTRP, LACDS #### [facility] [email or web address] [address] [address] Hepatic function 2000 panelo n 06-11-2023 Albumin BCG dye [Mass/Vol] 4.1 g/dL 3.5 - 5.1 g/dL [facility] ALP [Catalytic activity/Vol] 93 U/L 38 - 126 U/L [facility] ALT No additional P-5'-P [Catalytic activity/Vol] 11 U/L 11 - 66 U/L [facility] AST [Catalytic activity/Vol] 15 U/L 5 - 40 U/L [facility] Bilirubin [Mass/Vol] 0.4 mg/dL 0.3 - 1.2 mg/dL [facility] Bilirubin.conjugate d [Mass/Vol] mg/dL 0.0 - 0.3 mg/dL [facility] Protein [Mass/Vol] 6.5 g/dL 6.1 - 8.0 g/dL [facility] Comment on above: Performed at [facility] [address] [place] [address] LACTIC ACID, SEPSISon 2022 LACTIC ACID, SEPSIS 1.1 mmol/L Normal 0.5-1.9 [facility] Comment on above: Performed By: #### H EPPA, TSH3, HSTRP, LACDS #### [place] [address] Lactate, Sepsison 06-11-2023 Lactic Acid, Sepsis 1.1 mmol/L 0.5 - 1. 9 mmol/L [facility] Comment on above: Performed at [facility] [address] [place] [address] No Panel Informationon 06-11 [facility] Osmolalityon 06-11-2023 Osmolality Calc [Osmolality] 278.2 [facility] Comment on above: Performed at [facility] [address] [place] [address] TSH DL <= 0.005 mIU/L Qnon 0 06-11-2023 TSH Qn 1.040 m[IU]/L [facility] Comment on above: Performed at [facility] [address] [place] [address] TSH THIRD GENERATIONon 06-11 TSH THIRD GENERATION 1.040 uIU/mL Normal 0.400-4.200 [facility] Comment on above: Performed By: #### B MP, OSMOL, EGFR1, ANION, CBCWD #### [place] [address] Troponinon 06-11-2023 Troponin, High Sensitivity 8 ng/L 0 - 12 ng/L [facility] Comment on above: The high-sensitivity troponin T result should not be compared with other troponin methodologies. Rising or falling high-sensitivity troponin T is significant if >= 6. Performed at [facility] [address] [place] [address] URINALYSISon 06-11-2023 Bilirubin Ql (U) Negative Normal NEGATIVE [facility] Comment on above: Performed By: #### U A2 #### [address] [address] CHARACTER CLEAR Normal CLR-SL.CLOUD [facility] Comment on above: Performed By: #### U A2 #### [address] [address] Color (U) YELLOW Normal YELLOW-STRAW [facility] Comment on above: Performed By: #### U A2 #### [facility] [address] [place] [address] Glucose Ql (U) Negative Normal NEGATIVE [facility] Comment on above: Performed By: #### U A2 #### [address] [address] Hemoglobin Ql (U) Negative Normal NEGATIVE [facility] Comment on above: Performed By: #### U A2 #### [address] [address] Ketones Ql (U) Negative Normal NEGATIVE [facility] Comment on above: Performed By: #### U A2 #### [facility] [address] [place] [address] LEUKOCYTES Negative Normal NEGATIVE [facility] Comment on above: Performed By: #### U A2 #### [address] [address] Nitrite Ql (U) Negative Normal NEGATIVE [facility] Comment on above: Performed By: #### U A2 #### [address] [address] pH (U) 7.5 [pH] Normal 5.0 - 9.0 [facility] Comment on above: Performed By: #### U A2 #### [facility] [address] [place] [address] Protein Ql (U) Negative Normal NEGATIVE [facility] Comment on above: Performed By: #### U A2 #### [address] [address] Specific gravity (U) [Rel density] 1.018 Normal 1.002-1.030 [facility] Comment on above: Performed By: #### U A2 #### [facility] [address] [place] [address] Urobilinogen Qn (U) 1.0 {Luis Daniel'U}/dL Normal 0.0 - 1. 0 [facility] Comment on above: Performed By: #### U A2 #### [facility] [address] [place], [place] [address] Urinalysis dipstick panel Au to test strip (U)on 06-11-2023 Bilirubin Ql (U) Negative NEGATIVE [facility] Character (U) CLEAR CLR-SL.CLOUD [facility] Comment on above: Performed at [facility] [address] [place] [address] Color (U) YELLOW YELLOW-STRAW [facility] Glucose Auto test strip Ql (U) Negative NEGATIVE mg/dl [facility] Hemoglobin Auto test strip Ql (U) Negative NEGATIVE [facility] Ketones Auto test strip Ql (U) Negative NEGATIVE [facility] Leukocyte esterase Auto test strip Ql (U) Negative NEGATIVE [facility] Nitrite Auto test strip Ql (U) Negative NEGATIVE [facility] pH (U) 7.5 [pH] 5.0 - 9.0 [facility] Protein (U) [Mass/Vol] Negative NEGATIVE mg/dl [facility] Specific gravity Refractometry automated (U) [Rel density] 1.018 1.002 - 1.030 [facility] Urobilinogen Ql (U) 1.0 [facility] XR CHEST (2 VW)on 06-11-2023 1. No acute cardiopulmonary finding. 2. Age indeterminate compression fractures seen at T11, T12, and L1. 3. Mild cardiomegaly. This report has been created using voice recognition software. It may contain minor errors which are inherent in voice recognition technology. Final report electronically signed by Dr Milla Dinh on 06/11/2023 12:28 PM [facility] Milla Maloney MD - 06/11/2023 PROCEDURE: XR CHEST (2 VW) CLINICAL INFORMATION: cough COMPARISON: Chest radiograph 09/18/2022 TECHNIQUE: AP upright and lateral views of the chest performed. FINDINGS: No focal pulmonary consolidation. Cardiac silhouette is mildly enlarged. No pleural effusion. No pneumothorax. No acute bony abnormality. Age indeterminate compression deformities seen at T11, T12, and L1. The bones are demineralized. Degenerative changes of the thoracic spine. IMPRESSION: 1. No acute cardiopulmonary finding. 2. Age indeterminate compression fractures seen at T11, T12, and L1. 3. Mild cardiomegaly. This report has been created using voice recognition software. It may contain minor errors which are inherent in voice recognition technology. Final report electronically signed by Dr Milal Dinh on 06/11/2023 12:28 PM [facility] Radiology Study observation (narrative) [facility] XR CHEST (2 VW)Ordered By: Susanne Dinh on 06-11-2023 [facility] Work Phone: CT HEAD WITHOUT CONTRASTon 0 02-26-2023 CT HEAD WITHOUT CONTRAST CT head without contrast INDICATION: ; DIAGNOSES: -dizzy; ; COMPARISON:None. TECHNIQUE: Contiguous axial CT images from skull base to vertex without contrast. Coronal and sagittal reformations were performed. This exam was performed according to our departmental dose-optimization program, which includes automated exposure control, adjustment of the mA and/or kV according to patient size and/or use of iterative reconstruction technique. FINDINGS: Generalized atrophy. Periventricular low density is nonspecific and may be related to chronic small vessel ischemic change. There are no intra-or extra-axial collections. There is no mass effect or midline shift. There is no intracranial hemorrhage. No evidence of an acute large vessel territorial infarct. The basilar cisterns are patent. The bony calvarium is intact. Bilateral maxillary sinus mucosal thickening. Mastoid air cells are clear. IMPRESSION: 1. Exam is limited by motion. No acute intracranial abnormality identified. Electronically signed by: Yocasta Morfin MD 02/26/2023 4:39 PM CDT Normal [facility] Complete Blood Counton 02-26 Basophils/100 WBC (Bld) 0.6 % Normal 0.0-3.0 [facility] Comment on above: Performed By: #### 1 146338, [id number], [id number] #### [facility] [address] [place] [address] Eosinophils/100 WBC (Bld) 1.1 % Normal 0.0-4.0 [facility] Comment on above: Performed By: #### 1 917876, 6969240, 9349186 #### [facility] [address] [place] [address] Erythrocyte distribution width (RBC) [Ratio] 13.9 % Normal 11.5-14.5 [facility] Comment on above: Performed By: #### 1 441166, 6477366, [id number] #### [facility] [address] [place] [address] Hematocrit (Bld) [Volume fraction] 43.1 % Normal 42.0-52.0 [facility] Comment on above: Performed By: #### 1 815581, 0247359, 0315585 #### [facility] [address] [place] [address] Hemoglobin (Bld) [Mass/Vol] 14.6 g/dL Normal 14.0-18.0 [facility] Comment on above: Performed By: #### 1 876169, 8967388, 5086970 #### [facility] [address] [place] [address] Lymphocytes/100 WBC (Bld) 27.0 % Normal 17.6-49.6 [facility] Comment on above: Performed By: #### 1 025513, 2302900, 1095052 #### [facility] [address] [place] [address] MCH (RBC) [Entitic mass] 31.1 pg Normal 28.0-32.0 [facility] Comment on above: Performed By: #### 1 267968, 2069503, 9811580 #### [facility] [address] [place] [address] MCHC (RBC) [Mass/Vol] 33.9 g/dL Normal 33.0-37.0 [facility] Comment on above: Performed By: #### 1 309881, 5871982, 1333465 #### [facility] [address] [place] [address] MCV (RBC) [Entitic vol] 91.7 fL Normal 80.0-94.0 [facility] Comment on above: Performed By: #### 1 904216, 9655392, 0219590 #### [facility] [address] [place] [address] Monocytes/100 WBC (Bld) 6.7 % Normal 4.1-12.4 [facility] Comment on above: Performed By: #### 1 068092, 8733197, 0123163 #### [facility] [address] [place] [address] Neutrophils/100 WBC (Bld) 64.6 % Normal 39.4-72.5 [facility] Comment on above: Performed By: #### 1 360651, 7874134, 8039437 #### [facility] [address] [place] [address] PLT 199 thou/cumm Normal 130-400 [facility] Comment on above: Performed By: #### 1 413417, 8503971, 3272231 #### [facility] [address] [place] [address] RBC 4.71 mil/cumm Normal 4.70-6.10 [facility] Comment on above: Performed By: #### 1 360478, 2705031, 6648866 #### [facility] [address] [place] [address] SCAN NO Normal NO [facility] Comment on above: Performed By: #### 1 900897, 4022124, 8809636 #### [facility] [address] [place] [address] WBC 8.8 thou/cumm Normal 4.8-10.8 [facility] Comment on above: Performed By: #### 1 767905, 8855701, 6813057 #### [facility] [address] [place] [address] Comprehensive Metabolic Prof ile [place] 02-26-2023 Albumin [Mass/Vol] 4.0 g/dL Normal 3.5-5.0 [facility] Comment on above: Performed By: #### 1 690235, 9804359, 8338860 #### [facility] [address] [place] [address] Albumin/Globulin [Mass ratio] 1.2 {ratio} Normal 1.2-1.5 [facility] Comment on above: Performed By: #### 1 584472, 1053028, 4980319 #### [facility] [address] [place] [address] ALP [Catalytic activity/Vol] 90 U/L Normal 38-126 [facility] Comment on above: Performed By: #### 1 432065, 3133500, 4328030 #### [facility] [address] [place] [address] ALT [Catalytic activity/Vol] 23 U/L Normal 10-40 [facility] Comment on above: Performed By: #### 1 962277, 9403155, 4897594 #### [facility] [address] [place] [address] Anion gap [Moles/Vol] 7.4 mmol/L Low 10.0-20.0 [facility] Comment on above: Performed By: #### 1 259072, 4473199, 5692193 #### [facility] [address] [place] [address] AST [Catalytic activity/Vol] 19 U/L Normal 10-42 [facility] Comment on above: Performed By: #### 1 777586, 8615674, 8600359 #### [facility] [address] [place] [address] BILI 0.4 mg/dL Normal 0.3-1.2 [facility] Comment on above: Performed By: #### 1 619375, 2636194, 4083387 #### [facility] [address] [place] [address] Calcium [Mass/Vol] 9.0 mg/dL Normal 8.4-10.2 [facility] Comment on above: Performed By: #### 1 446956, 5285210, 1197208 #### [facility] [address] [place] [address] Chloride [Moles/Vol] 104 mmol/L Normal 98-107 [facility] Comment on above: Performed By: #### 1 703739, 2596085, 5709793 #### [facility] [address] [place] [address] CO2 [Moles/Vol] 33 mmol/L High 22-31 [facility] Comment on above: Performed By: #### 1 968123, 3237329, 8320573 #### [facility] [address] [place] [address] Creatinine [Mass/Vol] 0.9 mg/dL Normal 0.4-1.1 [facility] Comment on above: Performed By: #### 1 146788, 5318825, 9434161 #### [facility] [address] [place] [address] GFR/1.73 sq M.predicted among non-blacks MDRD (S/P/Bld) [Vol rate/Area] mL/min/{1.73_m2} Normal [facility] Comment on above: Result Comment: Claudia mated Glomerular filtration Rate Reference Ranges: GFR, mL/min/1.73m2 >= 60 Adequate 30 - 59 Moderately decreased GFR 15 - 29 Severely decreased GFR <18 Kidney failure (or dialysis) GFR calculated using abbreviated MDRD formula. MDRD equation not suitable for patients who are under 18, have unstable creatinine concentrations Performed By: #### 1 649170, 4555755, 4665472 #### [facility] [address] [place] [address] Globulin (S) [Mass/Vol] 3.3 g/dL Normal 2.9-3.3 [facility] Comment on above: Performed By: #### 1 039165, 9691609, 3142092 #### [facility] [address] [place] [address] Glucose [Mass/Vol] 119 mg/dL Normal 70-126 [facility] Comment on above: Result Comment: Refe rence Range for FASTING patients is 70-100 mg/dL Performed By: #### 1 285423, 5658941, 7956229 #### [facility] [address] [place] [address] Potassium [Moles/Vol] 4.4 mmol/L Normal 3.5-5.1 [facility] Comment on above: Performed By: #### 1 298561, 7995251, 9903013 #### [facility] [address] [place] [address] Protein [Mass/Vol] 7.3 g/dL Normal 6.4-8.3 [facility] Comment on above: Performed By: #### 1 066997, 9273575, 7459454 #### [facility] [address] [place] [address] Sodium [Moles/Vol] 140 mmol/L Normal 136-145 [facility] Comment on above: Performed By: #### 1 128720, 1764889, 3597345 #### [facility] [address] [place] [address] Urea nitrogen [Mass/Vol] 14 mg/dL Normal 7-22 [facility] Comment on above: Performed By: #### 1 319137, 2694837, 3165510 #### [facility] [address] [place] [address] Troponin-HSon 02-26-2023 TROP-HS 3.10 ng/L Normal 0.00-20.00 [facility] Comment on above: Result Comment: Trop onin I, High Sensitivity is below the upper reference limit (20 ng/L) and results are not consistent with myocardial infarction or injury, provided the specimen was collected more than 3-hours from the onset of symptoms. Patients with active symptoms, ischemic ECG changes and/or concerning clinical presentations should be considered for urgent evaluation irrespective of troponin results. Performed By: #### 1 939159, 6989999, [id number] #### [facility] [place] [place] [address] Urinalysis w/Reflex C and So n 02-26-2023 Color (U) YELLOW Normal YELLOW [facility] Comment on above: Performed By: #### 1 970139 #### [facility] [place] [address] SG 1.010 Normal 1.010-1.025 [facility] Comment on above: Performed By: #### 1 017156 #### [facility] [place] [address] UABLD Negative Normal NEGATIVE [facility] Comment on above: Performed By: #### 1 817428 #### [facility] [address] [place] [address] UAGLU Negative Normal NEGATIVE [facility] Comment on above: Performed By: #### 1 109643 #### [facility] [address] [place] [address] UAKET Negative Normal NEGATIVE [facility] Comment on above: Performed By: #### 1 977801 #### [facility] [address] [place] [address] UALEUK Negative Normal NEGATIVE [facility] Comment on above: Performed By: #### 1 719211 #### [facility] [address] [place] [address] UANIT Negative Normal NEGATIVE [facility] Comment on above: Performed By: #### 1 270525 #### [facility] [address] [place] [address] UAPH 8.0 Normal 5.0-8.0 [facility] Comment on above: Performed By: #### 1 831705 #### [facility] [address] [place] [address] UAPRO Negative Normal NEGATIVE [facility] Comment on above: Performed By: #### 1 863119 #### [facility] [address] [place] [address] UAURO 1.0 E.U./dL Normal 0.2-1.0 [facility] Comment on above: Performed By: #### 1 156352 #### [facility] [address] [place] [address] UCLAR CLEAR Normal CLEAR [facility] Comment on above: Performed By: #### 1 109856 #### [facility] [address] [place] [address] UMIC NO Normal NO [facility] Comment on above: Performed By: #### 1 775414 #### [facility] [address] [place] [address] Urobilinogen (U) [Mass/Vol] Negative Normal NEGATIVE [facility] Comment on above: Performed By: #### 1 075902 #### [facility] [address] [place] [address] XR CHEST AP PORTABLEon 02-26 XR CHEST AP PORTABLE EXAM DESCRIPTION: XR CHEST AP PORTABLE CLINICAL HISTORY: 67 years Male choking; COMMENT: Total number of images?->1; COMPARISON: None TECHNIQUE: AP view of the chest was obtained. FINDINGS: Cardiac silhouette is enlarged. Central vessels are mildly increased. No effusions bilaterally. Mild airspace opacity lower lungs bilaterally. IMPRESSION: Enlarged heart with mild central congestion. Atelectatic change versus infiltrate or pulmonary congestion lower lungs bilaterally. Electronically signed by: Emelina Melton MD 02/26/2023 4:37 PM CDT Normal [facility] CT HIP RIGHT WO CONTRASTon 0 02-24-2023 1. Degenerative change with joint space narrowing especially superiorly. 2. Geode formation in the right acetabulum and femoral head. 3. No fracture, avascular necrosis or other bony and femoral artery. 4. Degenerative change in the right sacroiliac joint. 5. Right inguinal hernia containing fat. This report has been created using voice recognition software. It may contain minor errors which are inherent in voice recognition technology. Final report electronically signed by DR CHAPARRITA CAMP on 02/24/2023 4:54 PM [facility] Chaparrita Rivers MD - 02/24/2023 PROCEDURE: CT HIP RIGHT WO CONTRAST CLINICAL INFORMATION: Fall, pain, findings of aseptic necrosis indeterminant for fracture . COMPARISON: Plain radiographs obtained on the same day.. TECHNIQUE: Axial thin section CT images were obtained through the right hip. No contrast was given. Coronal and sagittal reconstructions were obtained. All CT scans at this facility use dose modulation, iterative reconstruction, and/or weight-based dosing when appropriate to reduce radiation dose to as low as reasonably achievable. FINDINGS: There is degenerative change in the right hip with joint space narrowing especially superiorly. There are geodes in the femoral head and acetabulum. There is no fracture, avascular necrosis or other bony abnormality noted. There is no significant hip effusion. There is degenerative change involving the sacroiliac joint. There is vascular calcification. There is a small right inguinal hernia containing fat IMPRESSION: 1. Degenerative change with joint space narrowing especially superiorly. 2. Geode formation in the right acetabulum and femoral head. 3. No fracture, avascular necrosis or other bony and femoral artery. 4. Degenerative change in the right sacroiliac joint. 5. Right inguinal hernia containing fat. This report has been created using voice recognition software. It may contain minor errors which are inherent in voice recognition technology. Final report electronically signed by DR CHAPARRITA CAMP on 02/24/2023 4:54 PM [employer] Work Phone: Radiology Study observation (narrative) [employer] Work Phone: CT HIP RIGHT WO CONTRASTOrde red By: Chaparrita Camp on 02-24-2023 [employer] Work Phone: XR HIP 2-3 VW W PELVIS RIGHT on 02-24-2023 Findings compatible with aseptic necrosis involving the right femoral head. No definite acute fracture. This report has been created using voice recognition software. It may contain minor errors which are inherent in voice recognition technology. Final report electronically signed by Dr. Cristian Antonio on 02/24/2023 4:26 PM [facility] Cristian Warner MD - 02/24/2023 PROCEDURE: XR HIP 2-3 VW W PELVIS RIGHT CLINICAL INFORMATION: fall out of bed . TECHNIQUE: AP pelvis AP and frog-leg projections of the right hip COMPARISON: No prior study. FINDINGS: All images are underpenetrated. There is no acute fracture or dislocation. 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 Similar finding to a lesser degree on the left femoral head. SI joints are intact. Remote healed fracture of the right inferior pubic ramus IMPRESSION: Findings compatible with aseptic necrosis involving the right femoral head. No definite acute fracture. This report has been created using voice recognition software. It may contain minor errors which are inherent in voice recognition technology. Final report electronically signed by Dr. Cristian Antonio on 02/24/2023 4:26 PM [employer] Work Phone: Radiology Study observation (narrative) [employer] Work Phone: XR HIP 2-3 VW W PELVIS RIGHT Ordered By: Cristian Antonio on 02-24-2023 [employer] Work Phone: Anion Gapon 02-19-2023 Anion gap [Moles/Vol] 13.0 mmol/L 8.0 - 16.0 meq/L [facility] Comment on above: ANION GAP = Sodium - (Chloride + CO2) Performed at [facility] [address] [place] [address] CBC with Auto Differentialon 02-19-2023 Basophils (Bld) [#/Vol] 0.0 10*3/uL [facility] Basophils/100 WBC (Bld) 0.3 % [facility] Eosinophils Absolute 0.1 [facility] Eosinophils/100 WBC (Bld) 0.9 % [facility] Erythrocyte distribution width (RBC) [Entitic vol] 46.6 fL High 35.0 - 45.0 fL [facility] Erythrocyte distribution width (RBC) [Ratio] 13.2 % 11.5 - 14.5 % [facility] Hematocrit (Bld) [Volume fraction] 44.3 % 42.0 - 52.0 % [facility] Hemoglobin (Bld) [Mass/Vol] 14.2 g/dL [facility] Immature granulocytes (Bld) [#/Vol] 0.03 10*3/uL [facility] Immature granulocytes/100 WBC (Bld) 0.3 % [facility] Interpretation and review of laboratory results Abnormal [facility] Lymphocytes Absolute 2.5 [facility] Lymphocytes/100 WBC (Bld) 26.1 % [facility] MCH (RBC) [Entitic mass] 30.8 pg 26.0 - 33.0 pg [facility] MCHC (RBC) [Mass/Vol] 32.1 g/dL Low [facility] MCV (RBC) [Entitic vol] 96.1 fL High 80.0 - 94.0 fL [facility] Monocytes Absolute 0.8 [facility] Monocytes/100 WBC (Bld) 7.9 % [facility] Neutrophils/100 WBC (Bld) 64.5 % [facility] Nucleated RBC/100 WBC (Bld) [Ratio] 0 % /100 wbc [facility] Comment on above: Performed at [facility] [address] [place] [address] Platelet mean volume (Bld) [Entitic vol] 9.3 fL Low 9.4 - 12.4 fL [facility] Platelets (Bld) [#/Vol] 202 10*3/uL [facility] RBC (Bld) [#/Vol] 4.61 10*6/uL Low [facility] Segs Absolute 6.3 [facility] WBC (Bld) [#/Vol] 9.7 10*3/uL [facility] CT ABDOMEN PELVIS W IV CONTR AST Additional Contrast? Noneon 02-19-2023 1. Punctate calcification in the upper pole of the right kidney. No associated hydronephrosis. 2. Probable 2.6 on the left renal cyst.. 3. Tiny probable cysts in the dome of the right lobe of liver. 4. Hiatal hernia. Right inguinal hernia containing fat. 5. Atherosclerotic calcification in the abdominal aorta and iliac arteries. 6. Old compression deformity along the superior endplate of L1 with 30% compression. 7. The prostate gland measures 4 x 3.2 cm in size. This report has been created using voice recognition software. It may contain minor errors which are inherent in voice recognition technology. Final report electronically signed by DR CHAPARRITA CAMP on 02/19/2023 8:00 PM [facility] Chaparrita Vega MD - 02/19/2023 PROCEDURE: CT ABDOMEN PELVIS W IV CONTRAST CLINICAL INFORMATION: Abdominal pain for 3 hours . COMPARISON: None. TECHNIQUE: Axial [address] images were obtained through the abdomen and pelvis after the administration of intravenous contrast. Coronal and sagittal reconstructions were obtained. All CT scans at this facility use dose modulation, iterative reconstruction, and/or weight-based dosing when appropriate to reduce radiation dose to as low as reasonably achievable. FINDINGS: There are areas of atelectasis or scarring in the right and left lower lobes.. The base of the heart is within appropriate limits. There are tiny probable cysts in the dome of right lobe of liver. Please correlate with liver function tests.. The spleen is normal. The adrenals and pancreas are normal. The gallbladder is normal. There is punctate calcification in the upper pole of the right kidney. There is no associated hydronephrosis. There is a probable 2.6 x 2.6 cm left renal cyst. There is a hiatal hernia. There is a right inguinal hernia containing fat. No abnormalities of the small bowel loops are noted. There is atherosclerotic calcification in the abdominal aorta and iliac arteries.. There is no adenopathy. The urinary bladder is normal. The prostate gland measures 4 x 3.2 cm in size. There is no pelvic free fluid. The colon is within normal limits. There is no adenopathy. There is an old compression deformity along the superior endplate of L1 with 30% compression.. IMPRESSION: 1. Punctate calcification in the upper pole of the right kidney. No associated hydronephrosis. 2. Probable 2.6 on the left renal cyst.. 3. Tiny probable cysts in the dome of the right lobe of liver. 4. Hiatal hernia. Right inguinal hernia containing fat. 5. Atherosclerotic calcification in the abdominal aorta and iliac arteries. 6. Old compression deformity along the superior endplate of L1 with 30% compression. 7. The prostate gland measures 4 x 3.2 cm in size. This report has been created using voice recognition software. It may contain minor errors which are inherent in voice recognition technology. Final report electronically signed by DR CHAPARRITA CAMP on 02/19/2023 8:00 PM [employer] Work Phone: Radiology Study observation (narrative) [employer] Work Phone: CT ABDOMEN PELVIS W IV CONTR AST Additional Contrast? NoneOrdered By: Chaparrita Camp on 02-19-2023 [employer] Work Phone: Comprehensive metabolic 2000 panelon 02-19-2023 Albumin BCG dye [Mass/Vol] 4.2 g/dL 3.5 - 5.1 g/dL [employer] ALP [Catalytic activity/Vol] 103 U/L 38 - 126 U/L [employer] ALT No additional P-5'-P [Catalytic activity/Vol] 19 U/L 11 - 66 U/L [employer] Comment on above: Performed at [facility] [address] [place] [address] AST [Catalytic activity/Vol] 18 U/L 5 - 40 U/L [employer] Bilirubin [Mass/Vol] 0.3 mg/dL 0.3 - 1.2 mg/dL [facility] Calcium [Mass/Vol] 9.1 mg/dL 8.5 - 10. 5 mg/dL [facility] Chloride [Moles/Vol] 104 mmol/L 98 - 111 meq/L [facility] CO2 [Moles/Vol] 22 mmol/L Low 23 - 33 meq/L [facility] Creatinine [Mass/Vol] 0.8 mg/dL 0.4 - 1.2 mg/dL [facility] Glucose [Mass/Vol] 104 mg/dL 70 - 108 mg/dL [facility] Interpretation and review of laboratory results Abnormal [facility] Potassium [Moles/Vol] 4.6 mmol/L 3.5 - 5.2 meq/L [facility] Protein [Mass/Vol] 7.1 g/dL 6.1 - 8.0 g/dL [facility] Sodium [Moles/Vol] 139 mmol/L 135 - 145 meq/L [facility] Urea nitrogen [Mass/Vol] 16 mg/dL 7 - 22 mg/dL [facility] Glomerular Filtration Rate, Estimatedon 02-19-2023 GFR/1.73 sq M.predicted MDRD (S/P/Bld) [Vol rate/Area] - PINF [facility] Comment on above: Pediatric calculator link https://www.kidney.org/professionals/kdoqi/gfr_calculatorped Effective Jun 22, 2022 These results are not intended for use in patients <18 years of age. eGFR results are calculated without a race factor using the 2020 CKD-EPI equation. Careful clinical correlation is recommended, particularly when comparing to results calculated using previous equations. The CKD-EPI equation is less accurate in patients with extremes of muscle mass, extra-renal metabolism of creatinine, excessive creatine ingestion, or following therapy that affects renal tubular secretion. Performed at [email or web address] [address] [place] [address] Lipaseon 02-19-2023 Lipase [Catalytic activity/Vol] 39.1 U/L 5.6 - 51.3 U/L [facility] Comment on above: Performed at [facility] [address] [place] [address] No Panel Informationon 02-19 [facility] Osmolalityon 02-19-2023 Osmolality Calc [Osmolality] 279.0 [facility] Comment on above: Performed at [facility] [address] [place] [address] Troponinon 02-19-2023 Troponin T < 0.010 ng/ml [facility] Comment on above: <0.010 ng/ml Normal > or = 0.010 ng/ml Elevated (99%) Consistent with myocardial damage Cardiac troponin values can be elevated by many disease states in addition to acute ischemia. These include, but are not limited to: chronic renal failure, CHF, CVA, pulmonary embolus, COPD, myocardial trauma/surgery, myocarditis, pericarditis, tachycardia, aortic dissection, amyloidosis, sepsis and strenuous exercise. Serial measurement of troponin is strongly recommended as a first step in determining whether a low level elevation represents an acute or chronic condition. Performed at [facility] [address] [place] [address] Urinalysis dipstick W Reflex Culture panel (U)on 02-19-2023 Bilirubin Ql (U) Negative [facility]IVE [facility] Character (U) CLEAR CLEAR-SL CLOUD [facility] Comment on above: Performed at [facility] [address] [place] [address] Color, UA YELLOW STRAW-YELLOW [facility] Glucose Auto test strip Ql (U) Negative NEGATIVE mg/dl [facility] Hemoglobin Auto test strip Ql (U) Negative NEGATIVE [facility] Ketones Auto test strip Ql (U) Negative NEGATIVE [facility] Nitrite Ql (U) Negative NEGATIVE [facility] pH (U) 6.5 [pH] 5.0 - 9.0 [facility] Protein (U) [Mass/Vol] Negative NEGATIVE [facility] Specific gravity Refractometry automated (U) [Rel density] 1.018 1.002 - 1.030 [facility] Urobilinogen, Urine 1.0 [facility] WBC LM.HPF (Urine sed) [#/Area] Negative NEGATIVE [facility] Ammonia (P) [Mass/Vol]on Ammonia (P) [Moles/Vol] 22 umol/L 11 - 60 umol/L [facility] Comment on above: Performed at [facility] [address] [place], [place] [id number] [place] [address] Anion Gapon 10-14-2022 Anion gap [Moles/Vol] 8.0 mmol/L 8.0 - 16.0 meq/L [facility] Comment on above: ANION GAP = Sodium - (Chloride + CO2) Performed at [facility] [address] [place] [address] Basic metabolic 2000 panelon 10-14-2022 Calcium [Mass/Vol] 9.0 mg/dL 8.5 - 10. 5 mg/dL [facility] Comment on above: Performed at [facility] [address] [place], [place] [id number] Chloride [Moles/Vol] 106 mmol/L 98 - 111 meq/L [facility] CO2 [Moles/Vol] 26 mmol/L 23 - 33 meq/L [facility] Creatinine [Mass/Vol] 0.7 mg/dL 0.4 - 1.2 mg/dL [facility] Glucose [Mass/Vol] 112 mg/dL High 70 - 108 mg/dL [facility] Potassium [Moles/Vol] 4.6 mmol/L 3.5 - 5.2 meq/L [facility] Sodium [Moles/Vol] 140 mmol/L 135 - 145 meq/L [facility] Urea nitrogen [Mass/Vol] 12 mg/dL 7 - 22 mg/dL [facility] CBC with Auto Differentialon 10-14-2022 Basophils (Bld) [#/Vol] 0.0 10*3/uL [facility] Basophils/100 WBC (Bld) 0.3 % [facility] Eosinophils Absolute 0.1 [facility] Eosinophils/100 WBC (Bld) 1.8 % [facility] Erythrocyte distribution width (RBC) [Entitic vol] 46.5 fL High 35.0 - 45.0 fL [facility] Erythrocyte distribution width (RBC) [Ratio] 13.6 % 11.5 - 14.5 % [facility] Hematocrit (Bld) [Volume fraction] 39.6 % Low 42.0 - 52.0 % [facility] Hemoglobin (Bld) [Mass/Vol] 13.3 g/dL Low [facility] Immature granulocytes (Bld) [#/Vol] 0.01 10*3/uL [facility] Immature granulocytes/100 WBC (Bld) 0.1 % [facility] Interpretation and review of laboratory results Abnormal [facility] Lymphocytes Absolute 2.3 [facility] Lymphocytes/100 WBC (Bld) 31.5 % [facility] MCH (RBC) [Entitic mass] 31.1 pg 26.0 - 33.0 pg [facility] MCHC (RBC) [Mass/Vol] 33.6 g/dL [facility] MCV (RBC) [Entitic vol] 92.7 fL 80.0 - 94.0 fL [facility] Monocytes Absolute 0.7 [facility] Monocytes/100 WBC (Bld) 9.1 % [facility] Neutrophils/100 WBC (Bld) 57.2 % [facility] Nucleated RBC/100 WBC (Bld) [Ratio] 0 % /100 wbc [facility] Comment on above: Performed at [facility] [address] [place] [id number] Platelet mean volume (Bld) [Entitic vol] 9.3 fL Low 9.4 - 12.4 fL [facility] Platelets (Bld) [#/Vol] 203 10*3/uL [facility] RBC (Bld) [#/Vol] 4.27 10*6/uL Low [facility] Segs Absolute 4.1 [facility] WBC (Bld) [#/Vol] 7.2 10*3/uL [facility] Glomerular Filtration Rate, Estimatedon 10-14-2022 GFR/1.73 sq M.predicted MDRD (S/P/Bld) [Vol rate/Area] - PINF [facility] Comment on above: Pediatric calculator link https://www.kidney.org/professionals/kdoqi/gfr_calculatorped Effective Jun 22, 2022 These results are not intended for use in patients <18 years of age. eGFR results are calculated without a race factor using the 2020 CKD-EPI equation. Careful clinical correlation is recommended, particularly when comparing to results calculated using previous equations. The CKD-EPI equation is less accurate in patients with extremes of muscle mass, extra-renal metabolism of creatinine, excessive creatine ingestion, or following therapy that affects renal tubular secretion. Performed at [facility] [address] [place] [address] Hepatic function 2000 panelo n 10-14-2022 Albumin BCG dye [Mass/Vol] 3.8 g/dL 3.5 - 5.1 g/dL [facility] [employer] ALP [Catalytic activity/Vol] 109 U/L 38 - 126 U/L [facility] [employer] ALT No additional P-5'-P [Catalytic activity/Vol] 10 U/L Low 11 - 66 U/L [employer] AST [Catalytic activity/Vol] 16 U/L 5 - 40 U/L to be [facility] Bilirubin [Mass/Vol] 0.3 mg/dL 0.3 - 1.2 mg/dL to be [employer] Bilirubin.conjugate d [Mass/Vol] mg/dL 0.0 - 0.3 mg/dL [employer] Protein [Mass/Vol] 6.7 g/dL 6.1 - 8.0 g/dL [facility] [employer] Comment on above: Performed at [facility] [address] [place] [address] No Panel Informationon 10-14 Interpretation and review of laboratory results Abnormal [facility] Osmolalityon 10-14-2022 Osmolality Calc [Osmolality] 279.9 [facility] [employer] Comment on above: Performed at [facility] [address] [place] [address] Urinalysis dipstick W Reflex Microscopic panel (U)on 10-14-2022 Bacteria, UA NONE SEEN FEW/NONE SEEN [facility] Bilirubin Ql (U) Negative NEGATIVE [facility] Casts LM.LPF (Urine sed) [#/Area] NONE SEEN /lpf to be [facility] Character (U) CLEAR CLR-SL.CLOUD [facility] Charcoal LM Ql (Urine sed) NONE SEEN [facility] [employer] Comment on above: Performed at [facility] [address] [place] [address] Color (U) YELLOW YELLOW-STRAW [facility] Crystals LM Ql (Urine sed) NONE SEEN NONE SEEN [facility] Epithelial Cells, UA 0-2 3-5/hpf /hpf [facility] Epithelial cells.renal LM.HPF (Urine sed) [#/Area] NONE SEEN NONE SEEN [facility] Fungi.yeastlike LM Ql (Urine sed) NONE SEEN NONE SEEN [facility] Glucose Auto test strip Ql (U) Negative NEGATIVE mg/dl [facility] Hemoglobin Auto test strip Ql (U) Negative NEGATIVE [facility] Ketones Auto test strip Ql (U) Negative NEGATIVE [facility] Leukocyte esterase Auto test strip Ql (U) Negative NEGATIVE [facility] Nitrite Auto test strip Ql (U) Negative NEGATIVE [facility] pH (U) 6.5 [pH] 5.0 - 9.0 [facility] Protein (U) [Mass/Vol] Negative NEGATIVE mg/dl [facility] RBC LM.HPF (Urine sed) [#/Area] NONE SEEN 0-2/hpf /hpf [facility] Specific [place], UA 1.017 1.002 - 1.030 [facility] Urobilinogen, Urine 1.0 [facility] WBC LM.HPF (Urine sed) [#/Area] NONE SEEN 0-4/hpf /hpf [facility] CTA CHEST W WO CONTRASTon 1. Respiratory motion limits the detection of lobar and more distal pulmonary arterial filling defects. No central pulmonary arterial filling defect is identified to suggest the presence of pulmonary embolism. 2. Dependent atelectasis and patchy bilateral lower lobe airspace opacities suggest pneumonia in the appropriate clinical setting. Follow-up to ensure resolution is advised. 3. Centrilobular emphysema and chronic findings are discussed. This report has been created using voice recognition software. It may contain minor errors which are inherent in voice recognition technology. Final report electronically signed by Dr Linn Shabazz on 09/23/2022 10:14 AM [facility] Linn Cruz MD - 09/23/2022 PROCEDURE: CTA CHEST W WO CONTRAST CLINICAL INFORMATION: Continued hypoxia. COMPARISON: Chest x-ray 09/18/2022. TECHNIQUE: 1.5 mm axial images were obtained through the chest after the administration of IV contrast. A non-contrast localizer was obtained. 2mm MIP reconstructions of the chest performed in coronal and sagittal planes. All CT scans at this facility use dose modulation, iterative reconstruction, and/or weight based dosing when appropriate to reduce the radiation dose to as low as reasonably achievable. CONTRAST: 80 cc [id number] FINDINGS: Pulmonary arteries: Motion artifact limits visualization of the distal pulmonary arterial branches. No central pulmonary arterial filling defect is identified. Heart/mediastinum: The heart size is normal. No pericardial effusion is observed. Coronary artery calcifications are present. No aortic aneurysm or dissection is observed. Prominent mediastinal and hilar lymph nodes measure up to 13 mm in short axis. No axillary lymphadenopathy is visualized. Lungs: Centrilobular emphysema is present. Pleural-parenchymal scarring is noted at the lung apices. Patchy bilateral lower lobe airspace opacities are observed. Subpleural calcified right upper lobe pulmonary nodules measure 2 to 3 mm (series 4, image 83), A 3 mm right middle lobe pulmonary nodule is observed (series 4, image 115). Upper abdomen: No acute findings are noted in the limited images through the upper abdomen. Musculoskeletal: Diffuse osteopenia is present. Multilevel degenerative disc disease is noted in the thoracic spine. The visualized skeletal structures appear intact. A subcutaneous superficial midline chest wall lesion measuring 17 x 18 mm (series 5, image 235) likely corresponds to a sebaceous cyst. IMPRESSION: 1. Respiratory motion limits the detection of lobar and more distal pulmonary arterial filling defects. No central pulmonary arterial filling defect is identified to suggest the presence of pulmonary embolism. 2. Dependent atelectasis and patchy bilateral lower lobe airspace opacities suggest pneumonia in the appropriate clinical setting. Follow-up to ensure resolution is advised. 3. Centrilobular emphysema and chronic findings are discussed. This report has been created using voice recognition software. It may contain minor errors which are inherent in voice recognition technology. Final report electronically signed by Dr Linn Shabazz on 09/23/2022 10:14 AM [employer] Phone: Radiology Study observation (narrative) [employer] Work Phone: CTA CHEST W WO CONTRASTOrder ed By: Linn Shabazz on 09-23-2022 to be [facility] Work Phone: POCT Glucoseon 09-23-2022 Glucose [Mass/Vol] 127 mg/dL High 70 - 108 mg/dl [facility] [employer] Comment on above: Performed at [facility] [address] [place] [address] Interpretation and review of laboratory results Abnormal [facility] Anion Gapon 09-22-2022 Anion gap [Moles/Vol] 12.0 mmol/L 8.0 - 16.0 meq/L [facility] I AM AT [facility] Comment on above: ANION GAP = Sodium - (Chloride + CO2) Performed at [facility] [address] [place] [address] Basic Metabolic Panel w/ Ref jignesh to MGon 09-22-2022 Calcium [Mass/Vol] 8.5 mg/dL 8.5 - 10. 5 mg/dL [facility] [employer] Comment on above: Performed at [facility] [address] [place] [address] Chloride [Moles/Vol] 106 mmol/L 98 - 111 meq/L [facility] CO2 [Moles/Vol] 25 mmol/L 23 - 33 meq/L [facility] [employer] Creatinine [Mass/Vol] 0.6 mg/dL 0.4 - 1.2 mg/dL [facility] Glucose [Mass/Vol] 83 mg/dL 70 - 108 mg/dL [facility] [employer] Potassium [Moles/Vol] 4.3 mmol/L 3.5 - 5.2 meq/L [facility] Sodium [Moles/Vol] 143 mmol/L 135 - 145 meq/L [facility] I AM AT [facility] Urea nitrogen (BldV) [Mass/Vol] 14 mg/dL 7 - 22 mg/dL [facility] I AM AT [facility] CBCon 09-22-2022 Erythrocyte distribution width (RBC) [Ratio] 13 % 11.5 - 14.5 % [facility] [employer] Erythrocyte distribution width (RBC) [Ratio] 45.3 fL High 35.0 - 45.0 fL [facility] [employer] Hematocrit (Bld) [Volume fraction] 39.8 % Low 42.0 - 52.0 % [facility] Hemoglobin (Bld) [Mass/Vol] 13.0 g/dL Low [facility] Interpretation and review of laboratory results Abnormal [facility] MCH (RBC) [Entitic mass] 31.1 pg 26.0 - 33.0 pg [facility] MCHC (RBC) [Mass/Vol] 32.7 g/dL [facility] MCV (RBC) [Entitic vol] 95.2 fL High 80.0 - 94.0 fL [facility] Platelet mean volume (Bld) [Entitic vol] 9.2 fL Low 9.4 - 12.4 fL [facility] Comment on above: Performed at [facility] [facility] [address] [address] Platelets (Bld) [#/Vol] 188 10*3/uL [facility] RBC (Bld) [#/Vol] 4.18 10*6/uL Low [facility] WBC (Bld) [#/Vol] 7.4 10*3/uL [facility] Glomerular Filtration Rate, Estimatedon 09-22-2022 GFR/1.73 sq M.predicted MDRD (S/P/Bld) [Vol rate/Area] - PINF [facility] Comment on above: Pediatric calculator link https://www.kidney.org/professionals/kdoqi/gfr_calculatorped Effective Jun 22, 2022 These results are not intended for use in patients <18 years of age. eGFR results are calculated without a race factor using the 2020 CKD-EPI equation. Careful clinical correlation is recommended, particularly when comparing to results calculated using previous equations. The CKD-EPI equation is less accurate in patients with extremes of muscle mass, extra-renal metabolism of creatinine, excessive creatine ingestion, or following therapy that affects renal tubular secretion. Performed at [email or web address] [address] [place] [id number] No Panel Informationon 09-22 [facility] POCT Glucoseon 09-22-2022 Glucose [Mass/Vol] 104 mg/dL 70 - 108 mg/dl [facility] Comment on above: Performed at [facility] [address] [place] [address] POCT Glucoseon 09-21-2022 Glucose [Mass/Vol] 138 mg/dL High 70 - 108 mg/dl [facility] Comment on above: Performed at [facility] [address] [place] [address] Interpretation and review of laboratory results Abnormal [facility] Anion Gapon 09-20-2022 Anion gap [Moles/Vol] 10.0 mmol/L 8.0 - 16.0 meq/L [facility] Comment on above: ANION GAP = Sodium - (Chloride + CO2) Performed at [facility] [address] [place] [address] Basic Metabolic Panel w/ Ref jignesh to MGon 09-20-2022 Calcium [Mass/Vol] 8.3 mg/dL Low 8.5 - 10. 5 mg/dL [facility] Comment on above: Performed at [facility] [address] [place] [address] Chloride [Moles/Vol] 108 mmol/L 98 - 111 meq/L [facility] CO2 [Moles/Vol] 25 mmol/L 23 - 33 meq/L [facility] Creatinine [Mass/Vol] 0.8 mg/dL 0.4 - 1.2 mg/dL [facility] Glucose [Mass/Vol] 117 mg/dL High 70 - 108 mg/dL [facility] Interpretation and review of laboratory results Abnormal [facility] Potassium [Moles/Vol] 4.4 mmol/L 3.5 - 5.2 meq/L [facility] Sodium [Moles/Vol] 143 mmol/L 135 - 145 meq/L [facility] Urea nitrogen (BldV) [Mass/Vol] 16 mg/dL 7 - 22 mg/dL [facility] CBCon 09-20-2022 Erythrocyte distribution width (RBC) [Ratio] 13.5 % 11.5 - 14.5 % [facility] Erythrocyte distribution width (RBC) [Ratio] 48.3 fL High 35.0 - 45.0 fL [facility] Hematocrit (Bld) [Volume fraction] 41.0 % Low 42.0 - 52.0 % [facility] Hemoglobin (Bld) [Mass/Vol] 13.2 g/dL Low [facility] Interpretation and review of laboratory results Abnormal [facility] MCH (RBC) [Entitic mass] 31.4 pg 26.0 - 33.0 pg [facility] MCHC (RBC) [Mass/Vol] 32.2 g/dL [facility] MCV (RBC) [Entitic vol] 97.4 fL High 80.0 - 94.0 fL [facility] Platelet mean volume (Bld) [Entitic vol] 9.5 fL 9.4 - 12.4 fL [facility] Comment on above: Performed at [facility] [address] [place] [address] Platelets (Bld) [#/Vol] 185 10*3/uL [facility] RBC (Bld) [#/Vol] 4.21 10*6/uL Low [facility] WBC (Bld) [#/Vol] 9.2 10*3/uL [facility] Glomerular Filtration Rate, Estimatedon 09-20-2022 GFR/1.73 sq M.predicted MDRD (S/P/Bld) [Vol rate/Area] - PINF [facility] Comment on above: Pediatric calculator link https://www.kidney.org/professionals/kdoqi/gfr_calculatorped Effective Jun 22, 2022 These results are not intended for use in patients <18 years of age. eGFR results are calculated without a race factor using the 2020 CKD-EPI equation. Careful clinical correlation is recommended, particularly when comparing to results calculated using previous equations. The CKD-EPI equation is less accurate in patients with extremes of muscle mass, extra-renal metabolism of creatinine, excessive creatine ingestion, or following therapy that affects renal tubular secretion. Performed at [facility] [address] [place] [address] No Panel Informationon 09-20 [facility] Anion Gapon 09-19-2022 Anion gap [Moles/Vol] 8.0 mmol/L 8.0 - 16.0 meq/L [facility] Comment on above: ANION GAP = Sodium - (Chloride + CO2) Performed at [facility] [address] [place] [address] [facility] Basic Metabolic Panel w/ Ref jignesh to MGon 09-19-2022 Calcium [Mass/Vol] 8.2 mg/dL Low 8.5 - 10. 5 mg/dL [facility] Comment on above: Performed at [facility] [address] [place] [address] Chloride [Moles/Vol] 105 mmol/L 98 - 111 meq/L [facility] CO2 [Moles/Vol] 26 mmol/L 23 - 33 meq/L [facility] Creatinine [Mass/Vol] 0.8 mg/dL 0.4 - 1.2 mg/dL [facility] Glucose [Mass/Vol] 150 mg/dL High 70 - 108 mg/dL [facility] Interpretation and review of laboratory results Abnormal [facility] Potassium [Moles/Vol] 5.4 mmol/L High 3.5 - 5.2 meq/L [facility] Sodium [Moles/Vol] 139 mmol/L 135 - 145 meq/L [facility] Urea nitrogen (BldV) [Mass/Vol] 13 mg/dL 7 - 22 mg/dL [facility] CBC with Auto Differentialon 09-19-2022 Basophils (Bld) [#/Vol] 0.0 10*3/uL [facility] Basophils/100 WBC (Bld) 0.1 % [facility] Eosinophils Absolute 0.0 [facility] Eosinophils/100 WBC (Bld) 0 % [facility] Erythrocyte distribution width (RBC) [Ratio] 13.3 % 11.5 - 14.5 % [facility] Erythrocyte distribution width (RBC) [Ratio] 47.7 fL High 35.0 - 45.0 fL [facility] Hematocrit (Bld) [Volume fraction] 41.8 % Low 42.0 - 52.0 % [facility] Hemoglobin (Bld) [Mass/Vol] 13.4 g/dL Low [facility] Immature Grans (Abs) 0.03 [facility] Immature granulocytes/100 WBC (Bld) 0.3 % [facility] Interpretation and review of laboratory results Abnormal [facility] Lymphocytes Absolute 0.8 Low [facility] Lymphocytes/100 WBC (Bld) 8.2 % [facility] MCH (RBC) [Entitic mass] 31.5 pg 26.0 - 33.0 pg [facility] MCHC (RBC) [Mass/Vol] 32.1 g/dL Low [facility] MCV (RBC) [Entitic vol] 98.1 fL High 80.0 - 94.0 fL [facility] Monocytes Absolute 0.4 [facility] Monocytes/100 WBC (Bld) 4.3 % [facility] nRBC 0 /100 wbc [facility] Comment on above: Performed at [facility] [address] [place] [address] Platelet mean volume (Bld) [Entitic vol] 9.7 fL 9.4 - 12.4 fL [facility] Platelets (Bld) [#/Vol] 171 10*3/uL [facility] RBC (Bld) [#/Vol] 4.26 10*6/uL Low [facility] Segmented neutrophils/100 WBC (Bld) 87.1 % [facility] Segs Absolute 8.2 High [facility] WBC (Bld) [#/Vol] 9.4 10*3/uL [facility] Glomerular Filtration Rate, Estimatedon 09-19-2022 GFR/1.73 sq M.predicted MDRD (S/P/Bld) [Vol rate/Area] - PINF [facility] Comment on above: Pediatric calculator link https://www.kidney.org/professionals/kdoqi/gfr_calculatorped Effective Jun 22, 2022 These results are not intended for use in patients <18 years of age. eGFR results are calculated without a race factor using the 2020 CKD-EPI equation. Careful clinical correlation is recommended, particularly when comparing to results calculated using previous equations. The CKD-EPI equation is less accurate in patients with extremes of muscle mass, extra-renal metabolism of creatinine, excessive creatine ingestion, or following therapy that affects renal tubular secretion. Performed at [facility] [address] [place] [address] Potassiumon 09-19-2022 Potassium [Moles/Vol] 4.8 mmol/L 3.5 - 5.2 meq/L [facility] Comment on above: Low level specimen h emolysis is present as indicated by the interference level index on the Cleopatra analyzer. The reported K+ level may be falsely increased. If clinically warranted, recollection of the specimen is suggested. Performed at [address] Anion Gapon 09-18-2022 Anion gap [Moles/Vol] 11.0 mmol/L 8.0 - 16.0 meq/L [facility] Comment on above: ANION GAP = Sodium - (Chloride + CO2) [place] [address] Brain Natriuretic Peptideon 09-18-2022 Natriuretic peptide B (Bld) [Mass/Vol] 121.9 pg/mL 0.0 - 124.0 pg/mL [facility] Comment on above: Performed at [facility] [address] [place] [address] CBC with Auto Differentialon 09-18-2022 Basophils (Bld) [#/Vol] 0.0 10*3/uL [facility] Basophils/100 WBC (Bld) 0.2 % [facility] Eosinophils Absolute 0.0 [facility] Eosinophils/100 WBC (Bld) 0.2 % [facility] Erythrocyte distribution width (RBC) [Ratio] 13.4 % 11.5 - 14.5 % [facility] Erythrocyte distribution width (RBC) [Ratio] 47.9 fL High 35.0 - 45.0 fL [facility] Hematocrit (Bld) [Volume fraction] 40.0 % Low 42.0 - 52.0 % [facility] Hemoglobin (Bld) [Mass/Vol] 13.1 g/dL Low [facility] Immature Grans (Abs) 0.03 [facility] Immature granulocytes/100 WBC (Bld) 0.4 % [facility] Interpretation and review of laboratory results Abnormal [facility] Lymphocytes Absolute 0.6 Low [facility] Lymphocytes/100 WBC (Bld) 7.6 % [facility] MCH (RBC) [Entitic mass] 31.7 pg 26.0 - 33.0 pg [facility] MCHC (RBC) [Mass/Vol] 32.8 g/dL [facility] MCV (RBC) [Entitic vol] 96.9 fL High 80.0 - 94.0 fL [facility] Monocytes Absolute 0.7 [facility] Monocytes/100 WBC (Bld) 8.3 % [facility] nRBC 0 /100 wbc [facility] Comment on above: Performed at [facility] [address] [place] [address] Platelet mean volume (Bld) [Entitic vol] 9.2 fL Low 9.4 - 12.4 fL [facility] Platelets (Bld) [#/Vol] 161 10*3/uL [facility] RBC (Bld) [#/Vol] 4.13 10*6/uL Low [facility] Segmented neutrophils/100 WBC (Bld) 83.3 % [facility] Segs Absolute 6.8 [facility] WBC (Bld) [#/Vol] 8.2 10*3/uL [facility] COVID-19 & Influenza Comboon 09-18-2022 INFLUENZA A Detected Critically abnormal NOT DETECTED [facility] INFLUENZA B Not detected NOT DETECTED [facility] Comment on above: Performed at [facility] [address] [place] [address] Interpretation and review of laboratory results Abnormal [facility] SARS-CoV-2 (COVID-19) RNA JAVI+probe Ql (Unsp spec) Not detected NOT DETECTED [facility] Comment on above: Not Detected results do not preclude SARS-CoV-2 infection and should not be used as the sole basis for patient management decisions. Results must be combined with clinical observations, patient history, and epidemiological information. Testing was performed using JOES[employer] Loren SARS-CoV-2 and Influenza A/B nucleic acid assay. This test is a multiplex Real-Time Reverse Transcriptase Polymerase Chain Reaction (RT-PCR)-based in vitro diagnostic test intended for the qualitative detection of nucleic acids from SARS-CoV-2, influenza A, and influenza B in nasopharyngeal and nasal swab specimens for use under the [facility] s Emergency Use Authorization (EUA) only. Fact sheet for Healthcare Providers: https://www.fda.gov/media/487194/download Fact sheet for Patients: https://www.fda.gov/media/450856/download [facility] Comprehensive Metabolic Pane l w/ Reflex to MGon 09-18-2022 Albumin [Mass/Vol] 3.8 g/dL 3.5 - 5.1 g/dL [facility] ALP (Bld) [Catalytic activity/Vol] 89 U/L 38 - 126 U/L [facility] ALT [Catalytic activity/Vol] U/L Low 11 - 66 U/L [facility] Comment on above: Performed at [facility] [address] [place] [address] AST [Catalytic activity/Vol] 27 U/L 5 - 40 U/L [facility] Bilirubin [Mass/Vol] 0.3 mg/dL 0.3 - 1.2 mg/dL [facility] Calcium [Mass/Vol] 8.4 mg/dL Low 8.5 - 10. 5 mg/dL [facility] Chloride [Moles/Vol] 101 mmol/L 98 - 111 meq/L [facility] CO2 [Moles/Vol] 23 mmol/L 23 - 33 meq/L [facility] Creatinine [Mass/Vol] 0.8 mg/dL 0.4 - 1.2 mg/dL [facility] Glucose [Mass/Vol] 125 mg/dL High 70 - 108 mg/dL [facility] Interpretation and review of laboratory results Abnormal [facility] Potassium [Moles/Vol] 4.3 mmol/L 3.5 - 5.2 meq/L [facility] Protein [Mass/Vol] 6.5 g/dL 6.1 - 8.0 g/dL [facility] Sodium [Moles/Vol] 135 mmol/L 135 - 145 meq/L [facility] Urea nitrogen (BldV) [Mass/Vol] 14 mg/dL 7 - 22 mg/dL [employer] EKG 12 LeadOrdered By: Annette Beaulieu on 09-18-2022 Atrial Rate 118 BPM [employer] Work Phone: P [place] 61 degrees [employer] Work Phone: P-R Interval 142 ms [employer] Work Phone: Q-T Interval 318 ms [employer] Work Phone: QRS Duration 78 ms [employer] Work Phone: QTc Calculation (Bazett) 445 ms [employer] Work Phone: R [place] -36 degrees [employer] Work Phone: T [place] 67 degrees [employer] Work Phone: Ventricular Rate 118 BPM [employer] Work Phone: [employer] Work Phone: EKG 12 Leadon 09-18-2022 Sinus tachycardia Left axis deviation Abnormal ECG When compared with ECG of 31-OCT-2021 14:, No significant change was found Confirmed by ANNETTE BEAULIEU ([id number]) on 09/18/2022 7:17:25 PM [facility] Annette Beaulieu MD - 09/18/2022 Sinus tachycardia Left axis deviation Abnormal ECG When compared with ECG of 31-OCT-2021 14:27, No significant change was found Confirmed by ANNETTE BEAULIEU ([id number]) on 09/18/2022 7:17:25 PM [employer] Work Phone: Glomerular Filtration Rate, Estimatedon 09-18-2022 GFR/1.73 sq M.predicted MDRD (S/P/Bld) [Vol rate/Area] - PINF [employer] Comment on above: Pediatric calculator link https://www.kidney.org/professionals/kdoqi/gfr_calculatorped Effective Jun 22, 2022 These results are not intended for use in patients <18 years of age. eGFR results are calculated without a race factor using the 2020 CKD-EPI equation. Careful clinical correlation is recommended, particularly when comparing to results calculated using previous equations. The CKD-EPI equation is less accurate in patients with extremes of muscle mass, extra-renal metabolism of creatinine, excessive creatine ingestion, or following therapy that affects renal tubular secretion[place] [address] No Panel Informationon 09-18 [facility] Troponinon 09-18-2022 Troponin T < 0.010 ng/ml [facility] Comment on above: <0.010 ng/ml Normal > or = 0.010 ng/ml Elevated (99%) Consistent with myocardial damage Cardiac troponin values can be elevated by many disease states in addition to acute ischemia. These include, but are not limited to: chronic renal failure, CHF, CVA, pulmonary embolus, COPD, myocardial trauma/surgery, myocarditis, pericarditis, tachycardia, aortic dissection, amyloidosis, sepsis and strenuous exercise. Serial measurement of troponin is strongly recommended as a first step in determining whether a low level elevation represents an acute or chronic condition. Performed at [place] [id number] XR CHEST PORTABLEon 09-18-20 1. Prominent interstitial markings within the lower lungs raising the possibility of an interstitial infiltrate or interstitial edema. 2. Linear focus of atelectasis within the left lower lung. This document has been electronically signed by: Izzy Espinoza MD on 09/18/2022 06:19 PM [facility] MAN 1 view chest x-ray Comparison: CR/SR - XR CHEST PORTABLE - 10/31/2021 02:51 PM EST Findings: Prominence of interstitial markings within the bilateral lower lungs. Linear opacity within the left lower lung. No consolidative process. Borderline heart size. Tortuous aorta. Prior left-sided rotator cuff repair. No acute displaced fracture. [facility] Izzy Hernandes MD - 09/18/2022 1 view chest x-ray Comparison: CR/SR - XR CHEST PORTABLE - 10/31/2021 02:51 PM EST Findings: Prominence of interstitial markings within the bilateral lower lungs. Linear opacity within the left lower lung. No consolidative process. Borderline heart size. Tortuous aorta. Prior left-sided rotator cuff repair. No acute displaced fracture. IMPRESSION: 1. Prominent interstitial markings within the lower lungs raising the possibility of an interstitial infiltrate or interstitial edema. 2. Linear focus of atelectasis within the left lower lung. This document has been electronically signed by: Izzy Espinoza MD on 09/18/2022 06:19 PM [employer] Work Phone: Radiology Study observation (narrative) [employer] Work Phone: XR CHEST PORTABLEOrdered By: Izzy Espinoza on 09-18-2022 [employer] ECHOCARDIO M/2D COMPLETEon 0 03-13-2020 ECHOCARDIO M/2D COMPLETE Patient: SANA STANLEY Exam Date: 03/13/2020 : 1955 Gender:M Ordering : DR PIYUSH KEANE . Admission #: [id number] Family : Order #: [id number] CLICK HERE TO VIEW EXAM ECHOCARDIOGRAM REPORT PROCEDURE: CARDIO PULMONARY ECHOCARDIO M/2D COMP INDICATIONS: Nonrheumatic Aortic Valave Insufficiency, AAA COMPARISON: None. DESCRIPTION: COMPLETE ECHOCARDIOGRAM Real-time transthoracic echocardiography with 2D, M-mode, spectral and color flow Doppler performed. QUALITY: Technical quality was good. LEFT VENTRICLE: Normal chamber size. Mild concentric left ventricular hypertrophy. LV EF: Normal left ventricular ejection fraction, (>55%). DIASTOLIC: Mild diastolic dysfunction. ATRIAL SEPTUM: Intact atrial septum. LEFT ATRIUM: Normal chamber size. RIGHT ATRIUM: Normal chamber size. RIGHT VENTRICLE: Normal chamber size. Normal right ventricle function. TRICUSPID VALVE: Normal mobility and thickness. Trace regurgitation. MITRAL VALVE: Normal mobility and thickness. There is no mitral annular calcification. Trace mitral regurgitation. AORTIC VALVE: Normal trileaflet appearance. Normal leaflet mobility. Trivial aortic regurgitation. AORTIC ROOT: Mildly dilated. PULMONIC VALVE: Normal thickness and mobility. Trivial regurgitation. PERICARDIUM: No evidence of pericardial effusion. IVC: Within normal limits. CONCLUSION: Global left ventricular systolic function is normal. Mild diastolic dysfunction. Mild left ventricular hypertrophy. The right ventricle is normal in size and systolic function. The aortic root is mildly dilated. No significant valvular abnormalities. Adult Echocardiography Procedure Report Left Ventricle LVEDD (3.7 - 5.6 cm): 5.21 cm LVESD (2.2 - 4.0 cm): 3.44 cm LVIVS thickness (0.6 - 1.2 cm): 1.29 cm LVPW thickness (0.5 - 1.0 cm): 1.21 cm e': 9.15 cm/s E - e': 6.70 LVOT Area (cm2): 2.84 cm2 LVOT Diameter 1.90 cm Left Ventricular Ejection Fraction: 62.50 % Left Atrium Left Atrium Systolic Dimension: 3.10 cm Left Atrium Systolic Area(A4C): 16.80 cm2 Left Atrium Systolic Volume(A4C): 85446 mm3 Mitral Valve MV E to A Ratio: 0.60 Mitral Valve A-Wave Peak Velocity: 96.30 cm/s Mitral Valve E-Wave Peak Velocity: 61.70 cm/s Deceleration Time: 259 ms Right Ventricle Aorta AO Root Diam: 4.00 cm Aortic Valve AoV Area (Peak Robert): 2.76 cm2 Peak Velocity(Antegrade Flow): 111.00 cm/s Peak Gradient(Antegrade Flow): 5 mm[Hg] Tricuspid Valve Pulmonic Valve Peak Velocity: 89.50 cm/s Peak Gradient: 3 mm[Hg] Right Atrium Dictated by: Syeda Monreal M.D. on 03/14/2020 at 13:51 Approved by: Syeda Monreal M.D. on 03/14/2020 at 13:54 Normal [facility] CT HIP RT WO CONon 0 CT HIP RT WO CON EXAMINATION: CT HIP RT WO CON HISTORY: PAIN IN RIGHT HIP ; acute right hip and leg pain since falling 2 weeks ago COMPARISON: No relevant comparison available. TECHNIQUE: Multi-planar CT images were created without IV contrast. Dose reduction techniques were achieved by using automated exposure control and/or adjustment of mA and/or kV according to patient size and/or use of iterative reconstruction technique. FINDINGS: BONES: Mild narrowing of the superior aspect of the joint space with small subchondral cysts within the acetabulum. No fracture, dislocation, bone lesion. SOFT TISSUES: No appreciable soft tissue swelling or hematoma. EFFUSION: None visible. OTHER: Negative. IMPRESSION: 1. No acute bone abnormality. 2. Moderate degenerative joint disease. 3. No appreciable soft tissue abnormality. Electronically authenticated by: SANAM GRUBBS Date: 2020-01-27 09:42 Normal [facility] ACETONE SERUMon 06-16-2019 ACETONE Negative Normal NEGATIVE [facility] Comment on above: Performed By: #### A CETON #### [facility] [address] [place] [id number] Hse Izzy CBC AUTO DIFFon 06-16-2019 Basophils (Bld) [#/Vol] 0.0 103/ul Normal 0.0-0.1 [facility] Comment on above: Performed By: #### C BC #### [facility] [address] [place] [id number] She Izzy Basophils/100 WBC (Bld) 0.2 % Normal 0.2-2.0 [facility] Comment on above: Performed By: #### C BC #### [facility] [address] [place], [place] [id number] She Izzy Eosinophils (Bld) [#/Vol] 0.0 103/ul Normal 0.0-0.7 [facility] Comment on above: Performed By: #### C BC #### [facility] [address] [place] [address] She Izzy Eosinophils/100 WBC (Bld) 0.3 % Critically low 0.9-7.0 [facility] Comment on above: Performed By: #### C BC #### [facility] [address] [place], [place] [id number] She Izzy Erythrocyte distribution width (RBC) [Ratio] 12.9 % Normal 11.0-15.0 [facility] Comment on above: Performed By: #### C BC #### [facility] [address] [place] [address] She Izzy Hematocrit (Bld) [Volume fraction] 45.3 % Normal 42.0-54.0 [facility] Comment on above: Performed By: #### C BC #### [facility] [address] [place] [address] She Izzy Hemoglobin (Bld) [Mass/Vol] 15.1 g/dL Normal 14.0-18.0 [facility] Comment on above: Performed By: #### C BC #### [facility] [address] [id number] She Izzy IG # 0.04 10e3/ul Critically high 0.00-0.03 [facility] Comment on above: Performed By: #### C BC #### [facility] [address] [id number] She Izzy IG % 0.3 % Normal 0.0-0.5 [facility] Comment on above: Performed By: #### C BC #### [facility] [address] [id number] She Izzy Lymphocytes (Bld) [#/Vol] 1.3 103/ul Normal 1.2-3.8 [facility] Comment on above: Performed By: #### C BC #### [facility] [address] [place] [address] She Izzy Lymphocytes/100 WBC (Bld) 9.6 % Critically low 20.5-60.0 [facility] Comment on above: Performed By: #### C BC #### [facility] [address] [place], [place] [id number] She Izzy MANUAL DIFF REQ NO Normal [facility] Comment on above: Performed By: #### C BC #### [facility] [address] [place], [place] [id number] Seh Izzy MCH (RBC) [Entitic mass] 32.1 pg Normal 25.9-34.0 [facility] Comment on above: Performed By: #### C BC #### [facility] [address] [place], [place] [id number] She Izzy MCHC (RBC) [Mass/Vol] 33.3 g/dL Normal 29.9-35.2 [facility] Comment on above: Performed By: #### C BC #### [facility] [address] [place], [place] [id number] She Izzy MCV (RBC) [Entitic vol] 96.2 fL Critically high 80.0-94.0 [facility] Comment on above: Performed By: #### C BC #### [facility] [address] [place], [place] [address] She Izzy Monocytes (Bld) [#/Vol] 0.5 103/ul Normal 0.3-0.8 [facility] Comment on above: Performed By: #### C BC #### [facility] [address] [place], [place] [address] She Izzy Monocytes/100 WBC (Bld) 3.7 % Normal 1.7-12.0 [facility] Comment on above: Performed By: #### C BC #### [facility] [address] [place], [place] [address] She Izzy Neutrophils (Bld) [#/Vol] 11.8 103/ul Critically high 1.4-6.5 [facility] Comment on above: Performed By: #### C BC #### [facility] [address] [place], [place] [address] She Izzy Neutrophils/100 WBC (Bld) 85.9 % Critically high 43.0-75.0 [facility] Comment on above: Performed By: #### C BC #### [facility] [address] [place], [place] [address] She Izzy Platelet mean volume (Bld) [Entitic vol] 9.1 fL Critically low 9.5-13.5 [facility] Comment on above: Performed By: #### C BC #### [facility] [address] [place], [place] [address] She Izzy Platelets (Bld) [#/Vol] 175 103/ul Normal 150-450 [facility] Comment on above: Performed By: #### C BC #### [facility] [address] [place], [place] [address] She Izzy RBC (Bld) [#/Vol] 4.71 106/ul Normal 4.70-6.10 [facility] Comment on above: Performed By: #### C BC #### [facility] [address] [place], [place] [address] Hse Izzy WBC (Bld) [#/Vol] 13.8 103/ul Critically high 4.0-11.0 T [facility] Comment on above: Performed By: #### C BC #### [facility] [address] [place] [address] She Izzy ER URINE PROFILEon 9 Bilirubin [Mass/Vol] Negative Normal NEGATIVE [facility] Comment on above: Performed By: #### C BC #### [facility] [address] [place] [address] She Izzy BLOOD Negative Normal NEGATIVE [facility] Comment on above: Performed By: #### C BC #### [facility] [address] [place] [address] She Izzy Clarity (U) CLEAR Normal [facility] Comment on above: Performed By: #### C BC #### [facility] [address] [place] [address] She Izzy Color (U) LT. YELLOW Normal YELLOW [facility] Comment on above: Performed By: #### C BC #### [facility] [address] [place] [address] She Izzy ERUAHD A micrscopic examination will be performed if indicated. Normal [facility] Comment on above: Performed By: #### C BC #### [facility] [address] [place] [address] She Izzy Glucose [Mass/Vol] Negative Normal NEGATIVE [facility] Comment on above: Performed By: #### C BC #### [facility] [address] [place] [address] She Izzy Ketones Ql (U) Negative Normal NEGATIVE [facility] Comment on above: Performed By: #### C BC #### [facility] [address] [place] [address] She Izzy Nitrite Ql (U) Negative Normal NEGATIVE [facility] Comment on above: Performed By: #### C BC #### [facility] [address] [place] [address] She Izzy pH (Bld) 6.0 Normal 5-9 [facility] Comment on above: Performed By: #### C BC #### [facility] [address] [place], [place] [id number] Shekeli Magana Protein (U) [Mass/Vol] Negative Normal [facility] Comment on above: Performed By: #### C BC #### [facility] [address] [place], [place] [id number] She Magana SPEC GRAVITY 1.010 Normal 1.005-<=1.025 [facility] Comment on above: Performed By: #### C BC #### [facility] [address] [place] [address] She Magana UR MICRO IND NOT INDICATED Normal [facility] Comment on above: Performed By: #### C BC #### [facility] [address] [place] [address] Shekeli Magana Urobilinogen Qn (U) 0.2 EU/dl Normal [facility] Comment on above: Performed By: #### C BC #### [facility] [address] [place] [address] She Magana WBC (Bld) [#/Vol] Negative Normal NEGATIVE The [facility] Comment on above: Performed By: #### C BC #### [facility] [address] [place], [place] [id number] She Magana LACTATE/LACTIC ACIDon 2018 Lactate [Moles/Vol] 1.5 mmol/L Normal 0.7-2.1 [facility] Comment on above: Performed By: #### L ACT #### [facility] [address] [place], [place] [id number] She Izzy PH VENOUS BLOODon 06-16-2019 PCO2 VENOUS 56.8 mmHg Critically high 40.0-52.0 [facility] Comment on above: Performed By: #### P HVEN #### [facility] [address] [place], [place] [id number] She Izzy pH VENOUS 7.30 Critically low 7.33-7.43 [facility] Comment on above: Performed By: #### P HVEN #### [facility] [address] [place] [address] She Izzy PROCALCITONINon 06-16-2019 PCT header 1 SEE BELOW Normal [facility] Comment on above: Result Comment: PCT <0.5ng/mL: Systemic infection (sepsis) is not likely, local bacterial infection possible, low risk for progression to severe systemic infection (severe sepsis) Performed By: #### P RL #### [facility] [address] [place] [address] Shekeli Magana PCT header 2 SEE BELOW Normal [facility] Comment on above: Result Comment: PCT >/=0.5 and <2 ng/mL: Systemic infection (sepsis) is possible, moderate risk for progression to severe systemic infection (severe sepsis) Performed By: #### P RL #### [facility] [address] [place] [address] Shekeli Magana PCT header 3 SEE BELOW Normal [facility] Comment on above: Result Comment: PCT >/=2.0 and <10 ng/mL: Systemic infection (sepsis) is likely, unless other causes are known, high risk for progession to severe systemic infection(severe sepsis) Performed By: #### P RL #### [facility] [address] [place] [address] She Izzy PCT header 4 SEE BELOW Normal [facility] Comment on above: Result Comment: PCT >/= 10 ng/mL: Important systemic inflammatory response almost exclusively due to severe bacterial sepsis or septic shock, high likelihood of severe sepsis or septic shock Performed By: #### P RL #### [facility] [address] [place] [address] She Magana PROCALCITONIN <0.05 Normal 0.00-0.50 [facility] Comment on above: Performed By: #### P RL #### [facility] [address] [place] [address] She Magana PROF 14(COMP METB)on 019 Albumin [Mass/Vol] 3.6 g/dL Normal 3.5-5.0 [facility] Comment on above: Performed By: #### C MP, TROP #### [facility] [address] [place] [address] She Izzy Albumin/Globulin [Mass ratio] 1.1 {ratio} Normal [facility] Comment on above: Performed By: #### C MP, TROP #### [facility] [address] [address] She Izzy ALP [Catalytic activity/Vol] 107 U/L Normal 38-126 [facility] Comment on above: Performed By: #### C MP, TROP #### [facility] [address] [address] She Izzy ALT [Catalytic activity/Vol] 10 U/L Critically low 21-72 [facility] Comment on above: Performed By: #### C MP, TROP #### [facility] [address] [place] [address] She Izzy Anion gap [Moles/Vol] 10.4 mmol/L Normal [facility] Comment on above: Performed By: #### C MP, TROP #### [facility] [address] [place] [address] She Izzy AST [Catalytic activity/Vol] 14 U/L Critically low 17-59 [facility] Comment on above: Performed By: #### C MP, TROP #### [facility] [address] [place] [address] She Izzy Bilirubin Ql (U) 0.4 mg/dL Normal 0.2-1.3 [facility] Comment on above: Performed By: #### C MP, TROP #### [facility] [address] [address] She Izzy Calcium [Mass/Vol] 9.0 mg/dL Normal 8.4-10.2 [facility] Comment on above: Performed By: #### C MP, TROP #### [facility] [address] [id number] She Izzy Chloride [Moles/Vol] 105 mmol/L Normal 98-107 [facility] Comment on above: Performed By: #### C MP, TROP #### [facility] [address] [address] She Izzy CO2 [Moles/Vol] 27.4 mmol/L Normal 22.0-30.0 [facility] Comment on above: Performed By: #### C MP, TROP #### [facility] [address] [address] She Izzy Creatinine [Mass/Vol] 0.85 mg/dL Normal 0.66-1.25 [facility] Comment on above: Performed By: #### C MP, TROP #### [facility] [address] [id number] She Izzy EGFR-AF MOZAMBICAN >60 Normal >=60 [facility] Comment on above: Performed By: #### C MP, TROP #### [facility] [address] [address] She Izzy EGFR-NON AF MOZAMBICAN >60 Normal >=60 [facility] Comment on above: Performed By: #### C MP, TROP #### [facility] [address] [place] [address] She Izzy Globulin (S) [Mass/Vol] 3.4 g/dL Normal [facility] Comment on above: Performed By: #### C MP, TROP #### [facility] [address] [place] [address] She Izzy Glucose [Mass/Vol] 105 mg/dL Normal 74-106 [facility] Comment on above: Performed By: #### C MP, TROP #### [facility] [address] [place] [address] She Izzy Potassium [Moles/Vol] 3.8 mmol/L Normal 3.4-5.0 [facility] Comment on above: Performed By: #### C MP, TROP #### [facility] [address] [place] [address] She Izzy Protein [Mass/Vol] 7.0 g/dL Normal 6.1-8.2 [facility] Comment on above: Performed By: #### C MP, TROP #### [facility] [address] [place] [address] She Izzy Sodium [Moles/Vol] 139 mmol/L Normal 137-145 [facility] Comment on above: Performed By: #### C MP, TROP #### [facility] [address] [place] [address] She Izzy Urea nitrogen [Mass/Vol] 9.0 mg/dL Normal 9.0-20.0 [facility] Comment on above: Performed By: #### C MP, TROP #### [facility] [address] [place] [address] She Izzy Urea nitrogen/Creatinine [Mass ratio] 10.6 mg/mg Normal [facility] Comment on above: Performed By: #### C MP, TROP #### [facility] [address] [place] [address] She Izzy PROTIMEon 06-16-2019 INR Coag (PPP) [Relative time] 1.03 {INR} Normal [facility] Comment on above: Performed By: #### P T, PTT #### [facility] [address] [place] [address] She Izzy PT Coag (PPP) [Time] PLEASE NOTE: NORMAL RANGE CHANGE 06-07-2014 DUE TO REAGENT LOT CHANGE [facility] Comment on above: Performed By: #### P T, PTT #### [facility] [address] [place] [address] She Izzy PT Coag (PPP) [Time] 10.7 s Normal 9.0-11.6 [facility] Comment on above: Performed By: #### P T, PTT #### [facility] [address] [place] [address] She Izzy PT Coag (PPP) [Time] SEE BELOW Normal [facility] Comment on above: Result Comment: MOSES RED INR: 2.0 - 3.0 CONDITIONS NOT LISTED BELOW 2.5 - 3.5 FOR PROSTHETIC HEART VALVE REPLACEMENT 2.5 - 3.5 RECURRENT THROMBOSIS Performed By: #### P T, PTT #### [facility] [address] [place] [address] She Izzy PTTon 06-16-2019 aPTT Coag (Bld) [Time] PLEASE NOTE: NORMAL RANGE CHANGE 08-14-2015 DUE TO REAGENT LOT CHANGE Normal [facility] Comment on above: Performed By: #### P T, PTT #### [facility] [address] [place] [address] She Magana aPTT Coag (Bld) [Time] 23.2 s Normal 22.3-36.2 [facility] Comment on above: Performed By: #### P T, PTT #### [facility] [address] [place] [address] She Magana TROPONIN - Ion 06-16-2019 Troponin I.cardiac [Mass/Vol] ng/mL Normal <=0.034 [facility] Comment on above: Performed By: #### C MP, TROP #### [facility] [address] [place] [address] Izzy Troponin I.cardiac [Mass/Vol] SEE BELOW Normal [facility] Comment on above: Result Comment: <0.0 34 ng/ml NEGATIVE 0.034-0.119 INDETERMINATE 0.120 AMI CUT OFF Performed By: #### C MP, TROP #### [facility] [address] [place] [address] She Magana XR CHEST 2 Von 06-16-2019 XR CHEST 2 V Patient: SANA STANLEY Exam Date: 06/16/2019 : 1955 Gender:M Ordering : VIRGINIE RACHEL Admission #: [id number] Family : DR. SARAH BETANCOURT M.D. Order #: [id number] CLICK HERE TO VIEW EXAM RADIOLOGY REPORT PROCEDURE: RADIOGRAPH CHEST 2 VIEWS COMPARISON: XR CHEST 1 V, 08/26/2017. INDICATIONS: Acute cough, nausea FINDINGS: LUNGS: Mild bibasilar infiltrates. The upper lung zones are clear VASCULATURE: No increased pulmonary vasculature. PLEURA: No pneumothorax, effusion, or pleural thickening. CARDIAC: No cardiomegaly or cardiac silhouette abnormality. MEDIASTINUM: No visible mass or adenopathy. BONES: No fracture or visible bone lesion. OTHER: Negative. CONCLUSION: 1. Bibasilar infiltrates, atelectasis versus pneumonia Dictated by: Luis Manuel Barros M.D. on 06/16/2019 at 20:18 Approved by: Luis Manuel Barros M.D. on 06/16/2019 at 20:18 Normal [facility] Vital Signs Date Time Vital Sign Value Performing Clinician Facility 04-20-2025 15:50-0400 Body mass index (BMI) [Ratio] 32.42 kg/m2 Fabien Furlong DO Work Phone: [facility] 04-20-2025 15:50-0400 Body temperature 97.81 [degF] Fabien Furlong DO Work Phone: [facility] 04-20-2025 15:50-0400 Body weight 93.89 kg Fabien Furlong DO Work Phone: [facility] 04-20-2025 15:50-0400 Diastolic blood pressure 74 mm[Hg] Fabien Furlong DO Work Phone: [facility] 04-20-2025 15:50-0400 Heart rate 92 /min Fabien Furlong DO Work Phone: [facility] 04-20-2025 15:50-0400 Respiratory rate 18 /min Fabien Furlong DO Work Phone: [facility] 04-20-2025 15:50-0400 SaO2% (BldA) [Mass fraction] 94 % Fabien Furlong DO Work Phone: [facility] 04-20-2025 15:50-0400 Systolic blood pressure 108 mm[Hg] Fabien Furlong DO Work Phone: [facility] 04-10-2025 13:51-0400 Body mass index (BMI) [Ratio] 32.17 kg/m2 Fabien Furlong DO Work Phone: [facility] 04-10-2025 13:51-0400 Body temperature 98.1 [degF] Fabien Furlong DO Work Phone: [facility] 04-10-2025 13:51-0400 Body weight 93.17 kg Fabien Furlong DO Work Phone: [facility] 04-10-2025 13:51-0400 Diastolic blood pressure 89 mm[Hg] Fabien Furlong DO Work Phone: [facility] 04-10-2025 13:51-0400 Heart rate 70 /min Fabien Furlong DO Work Phone: [facility] 04-10-2025 13:51-0400 Respiratory rate 18 /min Fabien Furlong DO Work Phone: [facility] 04-10-2025 13:51-0400 SaO2% (BldA) [Mass fraction] 97 % Fabien Furlong DO Work Phone: [facility] 04-10-2025 13:51-0400 Systolic blood pressure 135 mm[Hg] Fabien Furlong DO Work Phone: [facility] 03-09-2025 15:30-0400 Body mass index (BMI) [Ratio] 31.42 kg/m2 Fabien Furlong DO Work Phone: [facility] 03-09-2025 15:30-0400 Body temperature 97.2 [degF] Fabien Furlong DO Work Phone: [facility] 03-09-2025 15:30-0400 Body weight 90.99 kg Fabien Furlong DO Work Phone: [facility] 03-09-2025 15:30-0400 Diastolic blood pressure 77 mm[Hg] Fabien Furlong DO Work Phone: [facility] 03-09-2025 15:30-0400 Heart rate 82 /min Fabien Furlong DO Work Phone: [facility] 03-09-2025 15:30-0400 Respiratory rate 18 /min Fabien Furlong DO Work Phone: [facility] 03-09-2025 15:30-0400 SaO2% (BldA) [Mass fraction] 97 % Fabien Furlong DO Work Phone: [facility] 03-09-2025 15:30-0400 Systolic blood pressure 127 mm[Hg] Fabien Furlong DO Work Phone: [facility] 01-10-2025 15:41-0400 Body temperature 97.7 [degF] Fabien Furlong DO Work Phone: [facility] 01-10-2025 15:41-0400 Diastolic blood pressure 73 mm[Hg] Fabien Furlong DO Work Phone: [facility] 01-10-2025 15:41-0400 Heart rate 86 /min Fabien Furlong DO Work Phone: [facility] 01-10-2025 15:41-0400 Respiratory rate 20 /min Fabien Furlong DO Work Phone: [facility] 01-10-2025 15:41-0400 SaO2% (BldA) [Mass fraction] 91 % Fabien Furlong DO Work Phone: [facility] 01-10-2025 15:41-0400 Systolic blood pressure 134 mm[Hg] Fabien Furlong DO Work Phone: [facility] 12-07-2024 15:48-0400 Body mass index (BMI) [Ratio] 31.29 kg/m2 Fabien Furlong DO Work Phone: [facility] 12-07-2024 15:48-0400 Body temperature 98.6 [degF] Fabien Furlong DO Work Phone: [facility] 12-07-2024 15:48-0400 Body weight 90.63 kg Fabien Furlong DO Work Phone: [facility] 12-07-2024 15:48-0400 Diastolic blood pressure 70 mm[Hg] Fabien Furlong DO Work Phone: [facility] 12-07-2024 15:48-0400 Heart rate 82 /min Fabien Furlong DO Work Phone: [facility] 12-07-2024 15:48-0400 SaO2% (BldA) [Mass fraction] 94 % Fabien Furlong DO Work Phone: [facility] 12-07-2024 15:48-0400 Systolic blood pressure 124 mm[Hg] Fabien Furlong DO Work Phone: [facility] 11-07-2024 14:59-0500 Diastolic blood pressure 98 mm[Hg] Fabien Furlong DO Work Phone: [facility] 11-07-2024 14:59-0500 Heart rate 110 /min Fabien Furlong DO Work Phone: [facility] 11-07-2024 14:59-0500 SaO2% (BldA) [Mass fraction] 98 % Fabien Furlong DO Work Phone: [facility] 11-07-2024 14:59-0500 Systolic blood pressure 122 mm[Hg] Fabien Furlong DO Work Phone: [facility] 10-31-2024 17:17-0500 Diastolic blood pressure 69 mm[Hg] Fabien Furlong DO Work Phone: [facility] 10-31-2024 17:17-0500 Heart rate 92 /min Fabien Furlong DO Work Phone: [facility] 10-31-2024 17:17-0500 SaO2% (BldA) [Mass fraction] 90 % Fabien Furlong DO Work Phone: [facility] 10-31-2024 17:17-0500 Systolic blood pressure 147 mm[Hg] Fabien Furlong DO Work Phone: [facility] 10-27-2024 14:28-0500 Body mass index (BMI) [Ratio] 31.17 kg/m2 Fabien Furlong DO [email or web address] 10-27-2024 14:28-0500 Body weight 90.27 kg Fabien Furlong DO Work Phone: [facility] [employer] 10-27-2024 14:28-0500 Diastolic blood pressure 91 mm[Hg] Fabien Furlong DO Work Phone: [facility] [employer] 10-27-2024 14:28-0500 Heart rate 81 /min Fabien Furlong DO [email or web address] 10-27-2024 14:28-0500 SaO2% (BldA) [Mass fraction] 95 % Fabien Furlong DO Work [email or web address] 10-27-2024 14:28-0500 Systolic blood pressure 150 mm[Hg] Fabien Furlong DO Work Phone: [facility] [employer] 10-17-2024 21:26-0500 Body temperature 97.7 [degF] Fabien Furlong DO Work Phone[email or web address] 10-17-2024 21:26-0500 Diastolic blood pressure 69 mm[Hg] Fabien Furlong DO Work Phone: [email or web address] 10-17-2024 21:26-0500 Heart rate 72 /min Fabien Furlong DO Work Phone: [facility] [employer] 10-17-2024 21:26-0500 Respiratory rate 18 /min Fabien Furlong DO Work Phone: [email or web address] 10-17-2024 21:26-0500 SaO2% (BldA) [Mass fraction] 94 % Fabien Furlong DO Work Phone: [facility] [employer] 10-17-2024 21:26-0500 Systolic blood pressure 134 mm[Hg] Fabien Furlong DO Work Phone: [facility] 10-10-2024 15:48-0500 Body temperature 97.59 [degF] Fabien Furlong DO Work Phone: [facility] [employer] 10-10-2024 15:48-0500 Diastolic blood pressure 77 mm[Hg] Fabien Furlong DO Work Phone: [facility] [employer] 10-10-2024 15:48-0500 Heart rate 77 /min Fabien Furlong DO Work Phone: [facility] [employer] 10-10-2024 15:48-0500 Respiratory rate 20 /min Fabien Furlong DO Work Phone: [facility] [employer] 10-10-2024 15:48-0500 SaO2% (BldA) [Mass fraction] 97 % Fabien Furlong DO Work Phone: [facility] [employer] 10-10-2024 15:48-0500 Systolic blood pressure 138 mm[Hg] Fabien Furlong DO Work Phone: [facility] 10-03-2024 16:44-0500 Body temperature 98.29 [degF] Fabien Furlong DO Work Phone: [facility] [employer] 10-03-2024 16:44-0500 Diastolic blood pressure 68 mm[Hg] Fabien Furlong DO Work Phone: [facility] [employer] 10-03-2024 16:44-0500 Heart rate 82 /min Fabien Furlong DO Work Phone: [facility] [employer] 10-03-2024 16:44-0500 Respiratory rate 20 /min Fabien Furlong DO Work Phone: [facility] [employer] 10-03-2024 16:44-0500 SaO2% (BldA) [Mass fraction] 98 % Fabien Furlong DO Work Phone: [facility] [employer] 10-03-2024 16:44-0500 Systolic blood pressure 127 mm[Hg] Fabien Furlong DO Work Phone: [facility] 08-11-2024 15:42-0500 Body mass index (BMI) [Ratio] 31.51 kg/m2 Fabien Furlong DO Work Phone: [facility] 08-11-2024 15:42-0500 Body weight 91.26 kg Fabien Furlong DO Work Phone: [facility] 08-11-2024 15:42-0500 Diastolic blood pressure 78 mm[Hg] Fabien Furlong DO Work Phone: [facility] 08-11-2024 15:42-0500 Heart rate 88 /min Fabien Furlong DO Work Phone: [facility] [facility] 08-11-2024 15:42-0500 Systolic blood pressure 158 mm[Hg] Fabien Furlong DO Work Phone: [facility] 07-24-2024 13:42-0500 Diastolic blood pressure 70 mm[Hg] Fabien Furlong DO Work Phone: [facility] 07-24-2024 13:42-0500 Heart rate 60 /min Fabien Furlong DO Work Phone: [facility] 07-24-2024 13:42-0500 Systolic blood pressure 108 mm[Hg] Fabien Furlong DO Work Phone: [facility] 07-04-2024 16:09-0400 Diastolic blood pressure 74 mm[Hg] Fabien Furlong DO Work Phone: [facility] 07-04-2024 16:09-0400 Heart rate 76 /min Fabien Furlong DO Work Phone: [facility] 07-04-2024 16:09-0400 Systolic blood pressure 116 mm[Hg] Fabien Furlong DO Work Phone: [facility] 06-27-2024 11:53-0400 Body mass index (BMI) [Ratio] 30.6 kg/m2 Fabien Furlong DO Work Phone: [facility] [place] [facility] 06-27-2024 11:53-0400 Body weight 88.63 kg Fabien Furlong DO Work Phone: [facility] [place] [facility] 06-27-2024 11:53-0400 Diastolic blood pressure 76 mm[Hg] Fabien Furlong DO Work Phone: [facility] [place] [facility] 06-27-2024 11:53-0400 Heart rate 82 /min Fabien Furlong DO Work Phone: [facility] [place] [facility] 06-27-2024 11:53-0400 Systolic blood pressure 134 mm[Hg] Fabien Furlong DO Work Phone: [facility] [place] [facility] 06-23-2024 22:24-0400 Body temperature 97.5 [degF] Fabien Furlong DO Work Phone: [facility] [place] [facility] 06-23-2024 22:24-0400 Diastolic blood pressure 82 mm[Hg] Fabien Furlong DO Work Phone: [facility] [place] [facility] 06-23-2024 22:24-0400 Heart rate 82 /min Fabien Furlong DO Work Phone: [facility] [place] [facility] 06-23-2024 22:24-0400 Respiratory rate 18 /min Fabien Furlong DO Work Phone: [facility] 06-23-2024 22:24-0400 SaO2% (BldA) [Mass fraction] 94 % Fabien Furlong DO Work Phone: [facility] [place] [facility] 06-23-2024 22:24-0400 Systolic blood pressure 135 mm[Hg] Fabien Furlong DO Work Phone: [facility] [place] [facility] 06-09-2024 16:32-0400 Body mass index (BMI) [Ratio] 29.95 kg/m2 Fabien Furlong DO Work [email or web address] 06-09-2024 16:32-0400 Body temperature 98.2 [degF] Fabien Spencelong DO Work Phone: [email or web address] 06-09-2024 16:32-0400 Body weight 86.73 kg Fabien Furlong DO Work Phone: [email or web address] 06-09-2024 16:32-0400 Diastolic blood pressure 93 mm[Hg] Fabien Furlong DO Work Phone: [email or web address] 06-09-2024 16:32-0400 Heart rate 92 /min Fabien Bebelong DO Work Phone: [email or web address] 06-09-2024 16:32-0400 Respiratory rate 18 /min Fabien Spencelong DO Work Phone: [email or web address] 06-09-2024 16:32-0400 SaO2% (BldA) [Mass fraction] 93 % Fabien Spencelong DO Work Phone: [email or web address] 06-09-2024 16:32-0400 Systolic blood pressure 119 mm[Hg] Fabien Spencelong DO Work Phone: [facility] [employer] 02-05-2024 19:36-0400 Diastolic blood pressure 118 mm[Hg] Suzanne Chan MD Work Phone: [employer] 02-05-2024 19:36-0400 Heart rate 72 /min Suzanne Chan MD Work Phone: [employer] 02-05-2024 19:36-0400 Respiratory rate 21 /min Suzanne Chan MD Work Phone: [employer] 02-05-2024 19:36-0400 SaO2% (BldA) [Mass fraction] 92 % Suzanne Chan MD Work Phone: [employer] 02-05-2024 19:36-0400 Systolic blood pressure 142 mm[Hg] Suzanne Chan MD Work Phone: [facility] 02-05-2024 15:42-0400 Body height 167.6 cm Suzanne Chan MD Work Phone: [facility] 02-05-2024 15:42-0400 Body mass index (BMI) [Ratio] 29.05 kg/m2 Suzanne Chan MD Work Phone: [facility] 02-05-2024 15:42-0400 Body temperature 98.01 [degF] Suzanne Chan MD Work Phone: [facility] 02-05-2024 15:42-0400 Body weight 81.65 kg Suzanne Chan MD Work Phone: [facility] 2023 09:41-0400 Body temperature 96.44 [degF] [facility] Other Phone: 2023 09:41-0400 Body temperature 96.6 [degF] [facility] Other Phone: 2023 09:41-0400 Diastolic blood pressure 85 mm[Hg] [facility] Other Phone: 2023 09:41-0400 Heart rate 65 /min [facility] Other Phone: 2023 09:41-0400 Respiratory rate 20 /min [facility] Other Phone: 2023 09:41-0400 SaO2% (BldA) [Mass fraction] 95 % [facility] Other Phone: 2023 09:41-0400 Systolic blood pressure 138 mm[Hg] [facility] Other Phone: 06-13-2023 02:37-0400 Body height 12.7 cm [facility] Other Phone: 06-13-2023 02:37-0400 Body surface area Derived from formula 2.02 m2 [facility] Other Phone: 06-13-2023 02:37-0400 Body weight 96.1 kg [facility] Other Phone: 06-13-2023 02:37-0400 Body weight 96.07 kg [facility] Other Phone: 06-12-2023 14:28-0400 Diastolic blood pressure 75 mm[Hg] Matt Caldwell MD Work Phone: [facility] 06-12-2023 14:28-0400 Systolic blood pressure 150 mm[Hg] Matt Caldwell MD Work Phone: [facility] 06-12-2023 14:27-0400 Body mass index (BMI) [Ratio] 34.22 kg/m2 Matt Caldwell MD Work Phone: [facility] 06-12-2023 14:27-0400 Body weight 99.11 kg Matt Caldwell MD Work Phone: [facility] 06-12-2023 14:26-0400 Body temperature 99.19 [degF] Matt Caldwell MD Work Phone: [facility] 06-12-2023 14:26-0400 Heart rate 91 /min Matt Caldwell MD Work Phone: [facility] 06-12-2023 14:26-0400 Respiratory rate 18 /min Matt Caldwell MD Work Phone: [facility] 06-12-2023 14:26-0400 SaO2% (BldA) [Mass fraction] 94 % Matt Caldwell MD Work Phone: [facility] 06-11-2023 13:04-0400 Diastolic blood pressure 98 mm[Hg] Rj Agiro DO Work Phone: [facility] 06-11-2023 13:04-0400 Heart rate 86 /min Rj Nicolas DO Work Phone: [facility] [employer] 06-11-2023 13:04-0400 Respiratory rate 18 /min Rj Nicolas DO Work Phone: [facility] [employer] 06-11-2023 13:04-0400 Systolic blood pressure 147 mm[Hg] Rj Nicolas DO Work Phone: [facility] [employer] 06-11-2023 11:32-0400 SaO2% (BldA) [Mass fraction] 95 % Rj Nicolas DO Work Phone: [facility] [employer] 06-11-2023 11:31-0400 Body height 170.2 cm Rj Nicolas DO Work Phone: [facility] [employer] 06-11-2023 11:31-0400 Body mass index (BMI) [Ratio] 33.52 kg/m2 Rj Nicolas DO Work Phone: [facility] [employer] 06-11-2023 11:31-0400 Body temperature 97.9 [degF] Rj Nicolas DO Work Phone: [facility] [employer] 06-11-2023 11:31-0400 Body weight 97.07 kg Rj Nicolas DO Work Phone: [facility] [employer] 02-24-2023 21:00-0400 Diastolic blood pressure 80 mm[Hg] Wallace Garcia DO Work Phone: [facility] [employer] 02-24-2023 21:00-0400 Heart rate 82 /min Wallace Garcia DO Work Phone: [facility] [employer] 02-24-2023 21:00-0400 Respiratory rate 16 /min Wallace Garcia DO Work Phone: [facility] [employer] 02-24-2023 21:00-0400 SaO2% (BldA) [Mass fraction] 97 % Wallace Garcia DO Work Phone: [facility] [employer] 02-24-2023 21:00-0400 Systolic blood pressure 132 mm[Hg] [facility]-24-[facility]23 15:39-0400 Body height 170.2 cm Wallace [facility] 02-24-2023 15:39-0400 Body mass index (BMI) [Ratio] 32.11 kg/m2 Wallace Garcia DO Work Phone: [facility] [employer] 02-24-2023 15:39-0400 Body temperature 97.9 [degF] Wallace Garcia DO Work Phone: [facility] [employer] 02-24-2023 15:39-0400 Body weight 92.99 kg Wallace Garcia DO Work Phone: [facility] 02-19-2023 23:30-0400 Diastolic blood pressure 68 mm[Hg] Francisco J Cole MD Work Phone: [facility] [employer] 02-19-2023 23:30-0400 Heart rate 81 /min Francisco J Cole MD Work Phone: [facility] [employer] 02-19-2023 23:30-0400 Respiratory rate 18 /min Francisco J Cole MD Work Phone: [facility] 02-19-2023 23:30-0400 SaO2% (BldA) [Mass fraction] 93 % Francisco J Cole MD Work Phone: [facility] [employer] 02-19-2023 23:30-0400 Systolic blood pressure 110 mm[Hg] Francsico J Cole MD Work Phone: [facility] 02-19-2023 16:23-0400 Body height 170.2 cm Francisco J Cole MD Work Phone: [facility] 02-19-2023 16:23-0400 Body mass index (BMI) [Ratio] 32.11 kg/m2 Francisco J Cole MD Work Phone: [facility] 02-19-2023 16:23-0400 Body temperature 97.7 [degF] Francisco J Cole MD Work Phone: [facility] 02-19-2023 16:23-0400 Body weight 92.99 kg Francisco J Cole MD Work Phone: [facility] 10-14-2022 12:52-0500 Diastolic blood pressure 115 mm[Hg] Erick Simpson MD Work Phone: [facility] 10-14-2022 12:52-0500 Heart rate 98 /min Erick Simpson MD Work Phone: [facility] [employer] 10-14-2022 12:52-0500 Respiratory rate 18 /min Erick Simpson MD Work Phone: [facility] [employer] 10-14-2022 12:52-0500 SaO2% (BldA) [Mass fraction] 95 % Erick Simpson MD Work Phone: [facility] 10-14-2022 12:52-0500 Systolic blood pressure 160 mm[Hg] Erick Simpson MD Work Phone: [facility] 10-14-2022 12:17-0500 Body height 170.2 cm Erick Simpson MD Work Phone: [facility] 10-14-2022 12:17-0500 Body mass index (BMI) [Ratio] 36.81 kg/m2 Erick Simpson MD Work Phone: [facility] 10-14-2022 12:17-0500 Body temperature 97.9 [degF] Erick Simpson MD Work Phone: [facility] 10-14-2022 12:17-0500 Body weight 106.59 kg Erick Simpson MD Work Phone: [facility] 09-23-2022 14:04-0500 Body temperature 98.49 [degF] Hillary Parrish MD Work Phone: [facility] 09-23-2022 14:04-0500 Diastolic blood pressure 98 mm[Hg] Hillary Parrish MD Work Phone: [facility] 09-23-2022 14:04-0500 Heart rate 113 /min Hillary Parrish MD Work Phone: [facility] 09-23-2022 14:04-0500 Respiratory rate 25 /min Hillary Parrish MD Work Phone: [facility] 09-23-2022 14:04-0500 SaO2% (BldA) [Mass fraction] 94 % Hillary Parrish MD Work Phone: [facility] 09-23-2022 14:04-0500 Systolic blood pressure 127 mm[Hg] Hillary Parrish MD Work Phone: [facility] 09-18-2022 23:00-0500 Body height 170.2 cm Hillary Parrish MD Work Phone: [facility] 09-18-2022 23:00-0500 Body mass index (BMI) [Ratio] 36.81 kg/m2 Hillary Parrish MD Work Phone: [facility] 09-18-2022 23:00-0500 Body weight 106.59 kg Hillary Parrish MD Work Phone: [facility] 05-03-2021 17:32-0400 Body temperature 98.2 [degF] Miguel Kessler MD Work Phone: [facility] 05-03-2021 17:32-0400 Body weight 89.36 kg Miguel Kessler MD Work Phone: [facility] 05-03-2021 17:32-0400 Diastolic blood pressure 64 mm[Hg] Miguel Kessler MD Work Phone: [facility] 05-03-2021 17:32-0400 Heart rate 88 /min Miguel Kessler MD Work Phone: [facility] 05-03-2021 17:32-0400 SaO2% (BldA) [Mass fraction] 96 % Miguel Kessler MD Work Phone: [facility] 05-03-2021 17:32-0400 Systolic blood pressure 124 mm[Hg] Miguel Kessler MD Work Phone: [facility] Encounters Encounter Date Encounter Type Care Provider Facility Start: 04-20-2025 End: 04-20-2025 Continuing Care Fabien Macias DO Work Phone: [facility] Comment on above: Wernicke's encephalo lynda (Primary Dx); Cognitive impairment; Schizoaffective disorder, unspecified type (CMS-HCC); Parkinson's disease, unspecified whether dyskinesia present, unspecified whether manifestations fluctuate (CMS-HCC); Chronic obstructive pulmonary disease, unspecified COPD type (CMS-HCC) Start: 04-10-2025 End: 04-13-2025 ambulatory Fabien Macias DO Work Phone: [facility] Comment on above: Wernicke's encephalo lynda (Primary Dx); Parkinson's disease, unspecified whether dyskinesia present, unspecified whether manifestations fluctuate (CMS-HCC); Chronic obstructive pulmonary disease, unspecified COPD type (CMS-HCC) Start: 03-09-2025 End: 03-09-2025 ambulatory Fabien Macias DO Work Phone: [facility] Comment on above: Chronic obstructive pulmonary disease, unspecified COPD type (CMS-HCC) (Primary Dx); Wernicke's encephalopathy; Parkinson's disease, unspecified whether dyskinesia present, unspecified whether manifestations fluctuate (CMS-HCC) Start: 01-10-2025 End: 01-10-2025 Continuing Care Fabien Macias DO Work Phone: [facility] Comment on above: Parkinson's disease, unspecified whether dyskinesia present, unspecified whether manifestations fluctuate (CMS-HCC) (Primary Dx); Chronic obstructive pulmonary disease, unspecified COPD type (CMS-HCC); Wernicke's encephalopathy; Schizoaffective disorder, unspecified type (CMS-HCC) Start: 12-07-2024 End: 12-16-2024 Continuing Care Fabien Macias DO Work Phone: [facility] Comment on above: Wernicke's encephalo lynda (Primary Dx); Extrapyramidal and movement disorder, unspecified; Stage 2 chronic kidney disease due to benign hypertension; Schizoaffective disorder, unspecified type (CMS-HCC) Start: 11-07-2024 End: 11-07-2024 ambulatory Fabien Macias DO Work Phone: [facility] Start: 11-07-2024 End: 11-07-2024 Nutrition therapy Fabien Macias DO [facility]: [facility] Comment on above: Chronic obstructive pulmonary disease, unspecified COPD type (CMS-HCC) (Primary Dx); Protein-calorie malnutrition, unspecified severity (CMS-HCC); Parkinson's disease, unspecified whether dyskinesia present, unspecified whether manifestations fluctuate (CMS-HCC); Mild cognitive impairment Start: 10-31-2024 End: 11-08-2024 ambulatory [facility] Macias DO [facility] Start: 10-31-2024 End: 11-08-2024 Nutrition therapy Fabien Macias DO Work Phone: [facility] Comment on above: Parkinson's disease, unspecified whether dyskinesia present, unspecified whether manifestations fluctuate (CMS-HCC) (Primary Dx); Wernicke's encephalopathy; Mild cognitive impairment; Chronic obstructive pulmonary disease, unspecified COPD type (CMS-HCC); Protein-calorie malnutrition, unspecified severity (CMS-HCC) Start: 10-27-2024 End: 11-02-2024 ambulatory Fabien Macias DO Work Phone: [facility] Comment on above: Wernicke's encephalo lynda (Primary Dx); Chronic obstructive pulmonary disease, unspecified COPD type (CMS-HCC); Parkinson's disease, unspecified whether dyskinesia present, unspecified whether manifestations fluctuate (CMS-HCC) Start: 10-17-2024 End: 10-17-2024 Continuing Care Fabien Macias DO Work [facility] Comment on above: Parkinson's disease, unspecified whether dyskinesia present, unspecified whether manifestations fluctuate (CMS-HCC) (Primary Dx); Wernicke's encephalopathy; Chronic obstructive pulmonary disease, unspecified COPD type (CMS-HCC); Extrapyramidal and movement disorder, unspecified Start: 10-10-2024 End: 10-21-2024 Continuing Care Fabien Macias DO Work [facility]: [facility] Comment on above: Parkinson's disease, unspecified whether dyskinesia present, unspecified whether manifestations fluctuate (CMS-HCC) (Primary Dx); Schizoaffective disorder, unspecified type (CMS-HCC); Wernicke's encephalopathy; Chronic obstructive pulmonary disease, unspecified COPD type (CMS-HCC) Start: 10-03-2024 End: 10-15-2024 ambulatory Fabien Macias DO Work [facility] Comment on above: Chronic obstructive pulmonary disease, unspecified COPD type ([facility] (Primary Dx); Parkinson's disease, unspecified whether dyskinesia present, unspecified whether manifestations fluctuate (CMS-HCC); Mild cognitive impairment; Wernicke's encephalopathy Start: 09-24-2024 End: 09-24-2024 ambulatory Gary Estevez [facility] Work Phone: Start: 09-24-2024 End: 09-24-2024 Departed Referred Gary Estevez DO Work Phone: [facility] Start: 08-11-2024 End: 08-11-2024 ambulatory Fabien Macias DO [facility] Comment on above: Wernicke's encephalo lynda (Primary Dx); Parkinson's disease, unspecified whether dyskinesia present, unspecified whether manifestations fluctuate (CMS-HCC); Chronic obstructive pulmonary disease, unspecified COPD type (CMS-HCC); Stage 2 chronic kidney disease due to benign hypertension Start: 07-11-2024 End: 07-24-2024 Continuing Care Fab[facility] Macias DO [facility] Comment on above: Parkinson's disease, unspecified whether dyskinesia present, unspecified whether manifestations fluctuate (CMS-HCC) (Primary Dx); Mild cognitive impairment; Schizoaffective disorder, unspecified type (CMS-HCC); Wernicke's encephalopathy Start: 07-06-[address] [facility] Start: 07-04-2024 End: 07-04-2024 Continuing Care Fab[facility] Macias DO [facility] Comment on above: Wernicke's encephalo lynda (Primary Dx); Extrapyramidal and movement disorder, unspecified; Parkinson's disease, unspecified whether dyskinesia present, unspecified whether manifestations fluctuate (CMS-HCC) Start: 06-27-2024 End: 06-27-2024 ambulatory Fabien Macias DO Work Phone: [facility] Comment on above: Wernicke's encephalo lynda (Primary Dx); Parkinson's disease, unspecified whether dyskinesia present, unspecified whether manifestations fluctuate (CMS-HCC); BPH with lower urinary tract symptoms without urinary obstruction Start: 06-23-2024 End: 06-26-2024 ambulatory Fabien Macias DO [facility] Comment on above: Wernicke's encephalo lynda (Primary Dx); Chronic obstructive pulmonary disease, unspecified COPD type (CMS-HCC); Parkinson's disease, unspecified whether dyskinesia present, unspecified whether manifestations fluctuate (CMS-HCC); Stage 2 chronic kidney disease due to benign hypertension; Mild cognitive impairment Start: 06-09-2024 End: 06-23-2024 Continuing Care Fabien Macias Work Phone: [facility] Comment on above: Schizoaffective diso rder, bipolar type ([facility]) (Primary Dx); Wernicke's encephalopathy; Chronic obstructive pulmonary disease, unspecified COPD type ([facility]); Parkinson's disease, unspecified whether dyskinesia present, unspecified whether manifestations fluctuate ([facility]); Nicotine dependence, cigarettes, uncomplicated; Extrapyramidal and movement disorder, unspecified; Iliotibial band syndrome, unspecified laterality; Stage 2 chronic kidney disease due to benign hypertension; Class 1 obesity due to excess calories with serious comorbidity in adult, unspecified BMI; Convulsions, unspecified convulsion type ([facility]); Hyperplasia of prostate without lower urinary tract symptoms (LUTS); White matter disease; Gastroesophageal reflux disease, unspecified whether esophagitis present; Mild cognitive impairment Start: 04-20-2024 ambulatory [facility] Start: 03-15-2024 ambulatory [facility] Start: 03-03-2024 End: 03-03-2024 ambulatory PIYUSH Multani [facility] Start: 02-28-2024 End: 02-28-2024 Subsequent hospital visit by physician Mavis Gonzales MD Work Phone: [facility] Nuclear Medicine Comment on above: Arrived Start: 02-28-2024 End: 03-01-2024 ambulatory MAVIS GONZALES [facility] Start: 02-10-2024 End: 02-10-2024 ambulatory PIYUSH Multani [facility] Start: 02-05-2024 End: 02-05-2024 Emergency department patient visit Suzanne Chan MD Work Phone: [facility] Comment on above: Chest pain, unspecif ied type (Primary Dx) Start: 11-17-2023 ambulatory Jared Mendez acility:[facility] Start: 10-29-2023 [facility] Start: 10-29-2023 End: 10-29-2023 Home visit est pt mod-hi severity 40 minutes Miguel Kessler MD Work Phone: [facility] Comment on above: Hypertensive heart d isease without heart failure (Primary Dx); Cigarette nicotine dependence in remission; Gastroesophageal reflux disease without esophagitis; COPD, mild; Parkinson's disease without dyskinesia or fluctuating manifestations; Seizure disorder; Severe alcohol use disorder, in sustained remission; Mild cognitive impairment Start: 08-24-2023 End: 08-24-2023 Emergency department patient visit KENAGUADALUPE Multani LAKHWINDER [facility] Start: 08-24-2023 Encounter for genera l adult medical examination without abnormal findings [facility] Start: 07-02-2023 [facility] Start: 07-02-2023 End: 07-02-2023 Home visit est pt mod-hi severity 40 minutes Miguel Kessler MD Work Phone: [facility] Comment on above: Hypertensive heart d isease without heart failure (Primary Dx); COVID-19 virus infection; COPD, mild; Seizure disorder; Parkinson's disease without dyskinesia or fluctuating manifestations; Cigarette nicotine dependence in remission; Gastroesophageal reflux disease without esophagitis; Severe alcohol use disorder, in sustained remission; Intractable chronic migraine without aura and without status migrainosus; Mild cognitive impairment Start: 06-12-2023 Evaluation and manag ement of inpatient Ben Ramires Other Phone: [phone] Other Phone: Start: 06-12-2023 End: 06-24-2023 Evaluation and management of inpatient [facility] Start: 06-12-2023 End: 06-12-2023 Emergency department patient visit WALDORF Awilda [facility] Start: 06-12-2023 End: 06-12-2023 Emergency department patient visit Matt Caldwell MD Work Phone: [facility] Emergency Medicine Start: 06-12-2023 End: 06-24-2023 ambulatory MIGUEL KESSLER [facility] Start: 06-11-2023 End: 06-11-2023 Emergency department patient visit Rj Nicolas DO Work Phone: [facility] Comment on above: Parkinson disease (H CC) (Primary Dx); General weakness Start: 05-28-[address] [facility] Start: 05-28-2023 End: 05-28-2023 Home visit est pt mod-hi severity 40 minutes Miguel Kessler MD Work Phone: [facility] Comment on above: Hypertensive heart d isease without heart failure (Primary Dx); COPD, mild; Seizure disorder; Parkinson's disease; Cigarette nicotine dependence in remission; Gastroesophageal reflux disease without esophagitis; Severe alcohol use disorder, in sustained remission Start: 04-02-2023 ambulatory MIGUEL KESSL[facility] Start: 04-02-2023 End: 04-02-2023 Home visit est pt mod-hi severity 40 minutes Miguel Kessler MD Work Phone: [facility] Comment on above: Intractable chronic migraine without aura and without status migrainosus (Primary Dx); Mass of joint of right shoulder; Hypertensive heart disease without heart failure; COPD, mild; Cigarette nicotine dependence in remission; Seizure disorder; Gastroesophageal reflux disease without esophagitis; Parkinson's disease; Physical debility; Severe alcohol use disorder, in sustained remission Start: 02-26-2023 End: 02-26-2023 Emergency department patient visit DAVISLIZABETH BALES [facility] Start: 02-26-2023 ambulatory MIGUEL KESSLER [facility] Start: 02-26-2023 End: 02-26-2023 Home visit est pt mod-hi severity 40 minutes Miguel Kessler MD Work Phone: [facility] Comment on above: Lethargy (Primary Dx ); Hypertensive heart disease without heart failure; Dizziness; Generalized weakness; COPD, mild; Physical debility; Seizure disorder; Gastroesophageal reflux disease without esophagitis; Parkinson's disease; Severe alcohol use disorder, in sustained remission; Cigarette nicotine dependence in remission Start: 02-24-2023 End: 02-24-2023 Emergency department patient visit Wallace Garcia DO Work Phone: [facility] Comment on above: Acute pain of right hip (Primary Dx); Osteoarthritis of right hip, unspecified osteoarthritis type Start: 02-19-2023 End: 02-20-2023 Emergency department patient visit Francisco J Cole MD Work Phone: [facility] Comment on above: Nonspecific abdomina l pain (Primary Dx) Start: 01-29-2023 ambulatory MIGUEL KESSLER [facility] Start: 10-14-2022 End: 10-14-2022 Emergency department patient visit Erick Simpson MD Work Phone: [facility] Comment on above: Feared complaint wit hout diagnosis (Primary Dx); Essential hypertension Start: 10-02-2022 End: 10-02-2022 Home visit est pt mod-hi severity 40 minutes Miguel Kessler MD Work Phone: [facility] Comment on above: Influenza A H1N1 inf ection (Primary Dx); COPD with acute exacerbation; Dependence on continuous supplemental oxygen; Physical debility; Hypertensive heart disease without heart failure; Cigarette nicotine dependence, uncomplicated; Seizure disorder; Gastroesophageal reflux disease without esophagitis; Parkinson's disease; Severe alcohol use disorder, in sustained remission; Benign prostatic hyperplasia without lower urinary tract symptoms Start: 09-18-2022 End: 09-23-2022 Evaluation and management of inpatient Hillary Parrish MD Work Phone: [facility] SURG 8A Comment on above: COPD exacerbation (H CC) (Primary Dx); Influenza with respiratory manifestation other than pneumonia; Acute on chronic respiratory failure with hypoxia (HCC) Start: 07-03-2022 End: 07-03-2022 Dom/r-home e/m est pt mod hi severity 40 minutes Miguel Kessler MD Work Phone: [facility] Comment on above: Grief reaction (Prim maria a Dx); Hypertensive heart disease without heart failure; COPD, mild; Cigarette nicotine dependence, uncomplicated; Gastroesophageal reflux disease without esophagitis; Parkinson's disease; Seizure disorder; Benign prostatic hyperplasia without lower urinary tract symptoms; Severe alcohol use disorder, in sustained remission; Mild cognitive impairment; Schizoaffective disorder, bipolar type Start: 11-28-2021 End: 11-28-2021 Dom/r-home e/m est pt mod hi severity 40 minutes Miguel Kessler MD Work Phone: [facility] Comment on above: Rolon's palsy (Primar y Dx); COPD, mild; Cigarette nicotine dependence, uncomplicated; Gastroesophageal reflux disease without esophagitis; Parkinson's disease; Essential tremor; Seizure disorder; Benign prostatic hyperplasia without lower urinary tract symptoms; Severe alcohol use disorder, in sustained remission; Essential hypertension; Mild cognitive impairment; Schizoaffective disorder, bipolar type; Unsteady gait Start: 09-26-2021 End: 09-26-2021 Dom/r-home e/m est pt mod hi severity 40 minutes Miguel Kessler MD Work Phone: [facility] Comment on above: COPD, mild (Primary Dx); Parkinson's disease; Essential hypertension; Essential tremor; Gastroesophageal reflux disease without esophagitis; Seizure disorder; Severe alcohol use disorder, in sustained remission; Mild cognitive impairment; Schizoaffective disorder, bipolar type Start: 05-02-2021 End: 05-02-2021 Domicil/rest home new pt visit hi sever 60 min Miguel Kessler MD Work Phone: [facility] Comment on above: Essential hypertensi on (Primary Dx); COPD, mild; Parkinson's disease; Seizure disorder; Gastroesophageal reflux disease without esophagitis; Essential tremor; Mild cognitive impairment; Severe alcohol use disorder, in sustained remission; Benign prostatic hyperplasia without lower urinary tract symptoms; Schizoaffective disorder, bipolar type Start: 03-13-2020 End: 03-14-2020 Patient encounter procedure KENAGUADALUPE KEANE Facility:[facility] Start: 01-27-2020 End: 01-27-2020 Patient encounter procedure KENAGUADALUPE KEANE Facility: Start: 06-16-2019 End: 06-16-2019 Patient encounter procedure KENAGUADALUPE KEANE Facility:[facility] Procedures Date Procedure Procedure Detail Performing Clinician Start: 02-28-2024 Myocardial spect mul tiple studies Mavis Gonzales MD Work Phone: Start: 02-05-2024 Ct angiography chest w/contrast/noncontrast Jose Ballard MD Work Phone: Start: 02-05-2024 Assay of troponin quantitative Jose Ballard MD Work Phone: Start: 02-05-2024 Radiologic exam ches t 2 views Suzanne Chan MD Work Phone: Start: 02-05-2024 Anion gap [Moles/Vol] J jarrett Cole MD Work Phone: Start: 02-05-2024 Basic metabolic pane l calcium total Suzanne Chan MD Work Phone: Start: 02-05-2024 GLOMERULAR FILTRATIO N RATE, ESTIMATED Francisco J Cole MD Work Phone: Start: 02-05-2024 Ecg routine ecg w/le ast 12 lds w/i&r Jose Ballard MD Work Phone: Start: 06-12-2023 End: 06-12-2023 EKG 12 channel panel Ben Birdi Other Phone: Start: 06-12-2023 Iadna nos amplified probe tq each organism Matt Caldwell MD Work Phone: Start: 06-12-2023 INFLUENZA A/B ANTIGEN,DNA Matt Caldwell MD Work Phone: Start: 06-12-2023 Colonoscopy Colonoscopy MANUELA STEPHENSON Start: 06-11-2023 Ecg routine ecg w/le ast 12 lds w/i&r Vahe Ribeiro MD Work Phone: Start: 06-11-2023 Radiologic exam ches t 2 views Vahe Ribeiro MD Work Phone: Start: 06-11-2023 Urnls dip stick/tabl et rgnt auto w/o microscopy Vahe Ribeiro MD Work Phone: Start: 06-11-2023 Anion gap [Moles/Vol] S eth Agiro DO Work Phone: Start: 06-11-2023 Basic metabolic pane l calcium total Rj Agiro DO Work Phone: Start: 06-11-2023 GLOMERULAR FILTRATIO N RATE, ESTIMATED Rj Agiro DO Work Phone: Start: 06-11-2023 Hepatic function panel aVhe Ribeiro MD Work Phone: Start: 06-11-2023 LACTATE, SEPSIS Vahe Ribeiro MD Work Phone: Start: 02-24-2023 Ct lower extremity w /o contrast material Wallace Hastings Jose DO Work Phone: Start: 02-24-2023 Radex hip unilateral with pelvis 2-3 views Wallace Garcia DO Work Phone: Start: 02-19-2023 Ct abdomen & pelvis w/contrast material Francisco J Cole MD Work Phone: Start: 02-19-2023 Anion gap [Moles/Vol] J jarrett Cole MD Work Phone: Start: 02-19-2023 Comprehensive metabo lic panel Francisco J Cole MD Work Phone: Start: 02-19-2023 GLOMERULAR FILTRATIO N RATE, ESTIMATED Francisco J Cole MD Work Phone: Start: 02-19-2023 Urnls dip stick/tabl et rgnt auto w/o microscopy Francisco J Cole MD Work Phone: Start: 10-14-2022 Urnls dip stick/tabl et reagent auto microscopy Harry Counts COMMUNICATIONS PROFESSOR - CLINICAL APPEALS SPECIALIST Work Phone: Start: 10-14-2022 Anion gap [Moles/Vol] C asey Counts COMMUNICATIONS PROFESSOR - CLINICAL APPEALS SPECIALIST Work Phone: Start: 10-14-2022 Basic metabolic pane l calcium total Harry Counts COMMUNICATIONS PROFESSOR - CLINICAL APPEALS SPECIALIST Work Phone: Start: 10-14-2022 GLOMERULAR FILTRATIO N RATE, ESTIMATED Harry Counts COMMUNICATIONS PROFESSOR - CLINICAL APPEALS SPECIALIST Work Phone: Start: 10-14-2022 Hepatic function panel Harry Counts COMMUNICATIONS PROFESSOR - CLINICAL APPEALS SPECIALIST Work Phone: Start: 09-23-2022 Gluc bld gluc mntr d ev cleared fda spec home use Jorge RACHEL-C Work Phone: Start: 09-23-2022 Ct angiography chest w/contrast/noncontrast Alice A Rethman COMMUNICATIONS PROFESSOR - CLINICAL APPEALS SPECIALIST Work Phone: Start: 09-23-2022 HOME O2 EVAL (DESATU RATION SCREEN) Jorge RACHEL-C Work Phone: Start: 09-22-2022 Gluc bld gluc mntr d ev cleared fda spec home use Alice A Rethman COMMUNICATIONS PROFESSOR - CLINICAL APPEALS SPECIALIST Work Phone: Start: 09-22-2022 Anion gap [Moles/Vol] H eather A Rethman COMMUNICATIONS PROFESSOR - CLINICAL APPEALS SPECIALIST Work Phone: Start: 09-22-2022 BASIC METABOLIC PANE L W/ REFLEX TO MG FOR LOW K Alice A Rethman COMMUNICATIONS PROFESSOR - CLINICAL APPEALS SPECIALIST Work Phone: Start: 09-22-2022 Blood count complete automated Alice A Rethman COMMUNICATIONS PROFESSOR - CLINICAL APPEALS SPECIALIST Work Phone: Start: 09-22-2022 GLOMERULAR FILTRATIO N RATE, ESTIMATED Alice A Rethman COMMUNICATIONS PROFESSOR - CLINICAL APPEALS SPECIALIST Work Phone: Start: 09-21-2022 Gluc bld gluc mntr d ev cleared fda spec home use Alice A Rethman COMMUNICATIONS PROFESSOR - CLINICAL APPEALS SPECIALIST Work Phone: Start: 09-20-2022 Anion gap [Moles/Vol] H eather A Rethman COMMUNICATIONS PROFESSOR - CLINICAL APPEALS SPECIALIST Work Phone: Start: 09-20-2022 BASIC METABOLIC PANE L W/ REFLEX TO MG FOR LOW K Alice A Rethman COMMUNICATIONS PROFESSOR - CLINICAL APPEALS SPECIALIST Work Phone: Start: 09-20-2022 Blood count complete automated Alice A Rethman COMMUNICATIONS PROFESSOR - CLINICAL APPEALS SPECIALIST Work Phone: Start: 09-20-2022 GLOMERULAR FILTRATIO N RATE, ESTIMATED Alice Rollins COMMUNICATIONS PROFESSOR - CLINICAL APPEALS SPECIALIST Work Phone: Start: 09-19-2022 Potassium serum plasma/whole blood Alice Rollins COMMUNICATIONS PROFESSOR - CLINICAL APPEALS SPECIALIST Work Phone: Start: 09-19-2022 Anion gap [Moles/Vol] A mbcandelaria Sepulveda [employer] Work Phone: Start: 09-19-2022 BASIC METABOLIC PANE L W/ REFLEX TO MG FOR LOW K Jocelin Sepulveda [employer] PA-C Work Phone: Start: 09-19-2022 Blood count complete auto&auto difrntl wbc Jocelin Sepulveda [email or web address] Work Phone: Start: 09-19-2022 GLOMERULAR FILTRATIO N RATE, ESTIMATED Jocelin Sepulveda [employer] Work Phone: Start: 09-18-2022 Radiologic exam ches t single view Tom Sorto MD Work Phone: Start: 09-18-2022 Anion gap [Moles/Vol] U nknown Provider Result Start: 09-18-2022 COVID-19 & INFLUENZA COMBO Tom Sorto MD Work Phone: Start: 09-18-2022 GLOMERULAR FILTRATIO N RATE, ESTIMATED Unknown Provider Result Start: 09-18-2022 Natriuretic peptide Mj Sorto MD Work Phone: Start: 09-18-2022 Ecg routine ecg w/le ast 12 lds i&r only Tom Sorto MD Work Phone: Start: 06-16-2019 End: 06-16-2019 Microscopic examination of blood, culture PIYUSH KEANE Comment on above: Performed By: #### C BC #### [facility] [address] [place] [address] She Magana Plan of Treatment Date Care Activity Detail Author Start: 04-10-2026 Adult BMI Screening Adult BMI Screening [facility] Start: 03-09-2026 Adult BMI Screening Adult BMI Screening [facility] Start: 02-09-2026 Adult BMI Screening Adult BMI Screening [facility] Start: 12-07-2025 Adult BMI Screening Adult BMI Screening [facility] Start: 10-27-2025 Adult BMI Screening Adult BMI Screening [facility] Start: 09-06-2025 Adult BMI Screening Adult BMI Screening [facility] Start: 06-27-2025 Adult BMI Screening Adult BMI Screening [facility] Start: 06-09-2025 Adult BMI Screening Adult BMI Screening [facility] Start: 05-21-2025 Influenza vaccination Influenza Vaccine [facility] Start: 09-24-2024 Bacteria identified in Urine by Culture Urine Culture [facility] Start: 09-24-2024 Urine culture [facility] Start: 05-21-2024 Influenza vaccination Influenza Vaccine [facility] Start: 04-20-2024 Influenza vaccination Flu vaccine (Season Ended) [employer] Start: 03-03-2024 End: 03-03-2024 Patient encounter procedure 03/03/2024 10:15 AM EDT Office Visit [facility] [address] [place] [address] Mavis Gonzales MD [address] [address] f/u after testing [facility] [employer] [facility] Comment on above: f/u after testing Start: 02-10-2024 End: 02-10-2024 Patient encounter procedure 02/10/2024 10:00 AM EDT Office Visit [facility] [address] [address] [facility] Start: 08-16-2023 Annual Wellness Visit (Medicare) Annual Wellness Visit (Medicare) [facility] Start: 2023 [place] Level. [place] Level. Start: [id number] Request [facility] Other Phone: Start: 06-13-2023 Blood count complete automated CBC Date: 13-Jun-2023 Comments: 9/24/23: wnl: ldl 46, a1c, F, abnl: [id number] [facility] Other Phone: Comment on above: 06/13/23: wnl: ldl 46, a1c, F, abnl: [id number] Start: 05-21-2023 COVID-19 VACCINE ( season) COVID-19 VACCINE ( season) [facility] Start: 05-21-2023 Influenza vaccination [facility] Start: 04-20-2023 Influenza vaccination [facility] Start: 05-21-2022 Influenza vaccination INFLUENZA VACCINE (#1) [facility] Start: 04-20-2022 Influenza vaccination Flu vaccine (#1) [facility] Start: 03-05-2022 COVID-19 VACCINE (5 - Booster for Moderna series) COVID-19 VACCINE (5 - Booster for Moderna series) [facility] Start: 03-05-2022 COVID-19 VACCINE (5 - Moderna series) COVID-19 VACCINE (5 - Moderna series) [facility] Start: 06-19-2021 COVID-19 VACCINE (3 - Booster for Moderna series) COVID-19 VACCINE (3 - Booster for Moderna series) [facility] Start: 05-21-2021 Influenza vaccination INFLUENZA VACCINE (#1) [facility] Start: 05-19-2021 COVID-19 VACCINE (3 - Booster for Moderna series) COVID-19 VACCINE (3 - Booster for Moderna series) [facility] Start: 03-31-2021 Annual Wellness Visit (AWV) Annual Wellness Visit (AWV) [facility] Start: 02-11-2021 COVID-19 VACCINE (3 - Booster for Moderna series) COVID-19 VACCINE (3 - Booster for Moderna series) [facility] Start: 02-11-2021 COVID-19 Vaccine (3 - Moderna series) COVID-19 Vaccine (3 - Moderna series) [facility] Start: 2018 Abdominal aortic aneurysm screening [facility] Start: 2018 Fall Risk Screening Fall Risk Screening [facility] Start: 2018 Pneumococcal vaccination [facility] Start: 2013 Respiratory Syncytial Virus (RSV) or age 60 yrs+ (1 - 1-dose 60+ series) Respiratory Syncytial Virus (RSV) or age 60 yrs+ (1 - 1-dose 60+ series) [facility] Start: 2003 Administration of varicella zoster vaccine Zoster (Shingles) Vaccine (1 of 2) [facility] Start: 2003 Prostate specific antigen measurement PROSTATE CANCER SCREENING DISCUSSION [facility] Start: 2003 Shingles vaccine (1 of 2) Shingles vaccine (1 of 2) [facility] Start: 2003 Zoster vaccine hzv live for subcutaneous use ZOSTER (SHINGLES) VACCINE (1 of 2) [facility] Start: 1998 Colonoscopy COLORECTAL CANCER SCREENING DISCUSSION [facility] Start: 1998 Screening for malignant neoplasm of colon [facility] Start: 1993 Fasting lipid profile LIPID SCREENING [facility] Start: 1993 Lipid panel LIPID SCREENING [facility] Start: 1988 Diabetes screen Diabetes screen [facility] Start: 1972 DTaP,Tdap and Td Vaccines (1 - Tdap) DTaP,Tdap and Td Vaccines (1 - Tdap) [facility] Start: 1972 DTaP/Tdap/Td vaccine (1 - Tdap) DTaP/Tdap/Td vaccine (1 - Tdap) [facility] Start: 1972 Third diphtheria, tetanus and acellular pertussis (DTaP) vaccination TDAP (ADULT) [facility] Start: 1971 Hepatitis C screening Hepatitis C screen [facility] Start: 1971 Tetanus vaccination TETANUS [facility] Start: 1965 Depression Monitoring Depression Monitoring [facility] Start: 1965 Depression Screening Depression Screening [facility] Start: 1965 Tobacco Screening Tobacco Screening [facility] Start: 1963 Lipid panel Lipids [facility] Start: 1959 Pneumococcal 65+ years Vaccine (1 - PCV) Pneumococcal 65+ years Vaccine (1 - PCV) [facility] Start: 1959 Pneumococcal 65+ years Vaccine (1 of 2 - PCV) Pneumococcal 65+ years Vaccine (1 of 2 - PCV) [employer] Start: 1959 Pneumococcal vaccination [employer] [facility] Start: 1953 Hepatitis B vaccination HEP B VACCINE (1 of 3 - 3-dose series) [facility] Start: 1953 Hepatitis C antibody, confirmatory test HEPATITIS C VIRUS SCREENING [employer] [facility] Start: 1953 Hepatitis C screening HEPATITIS C VIRUS SCREENING [facility] Start: 1953 Tetanus vaccination TETANUS [facility] Acapella Acapella Respira tory Care Routine Daily until discontinued starting 09/19/2022 [employer] Phone: Comment on above: Daily until discontinued starting 2021 Arthroscopy shoulder rotator cuff repair Arthroscopy of left shoulder with repair of rotator cuff [facility] Other Phone: Colonoscopy flx dx w/collj spec when pfrmd Colonoscopy [facility] Other Phone: EKG 12 Lead EKG 12 Lead ECG STAT 06/11/2023 12:31 PM EDT [employer] EKG Emergency EKG Emergency EC G STAT 02/05/2024 3:35 PM EDT [employer] End: 02-19-2023 Gastrointestinal Panel, Molecular Gastrointestinal Panel, Molecular Microbiology STAT One Time for 1 Occurrences starting 02/19/2023 until 02/19/2023 [employer] Phone: Comment on above: One Time for 1 Occurrences starting 10/2022 until 02/19/2023 Initiate RT Inhaler-Nebulizer Bronchodilator Protocol Initiate RT Inhaler-Nebulizer Bronchodilator Protocol Respiratory Care Routine BID until discontinued starting 09/19/2022 [employer] Phone: Comment on above: BID until discontinued starting 09/19/20 Oxygen therapy [[facility] Data Set] Initiate Oxygen Therapy Protocol Respiratory Care Routine As Needed until discontinued starting 09/18/2022 [employer] Phone: Comment on above: As Needed until discontinued starting R & l hrt cath w/njx l ventriculog img s&i Complete cardiac catheterization [facility] Other Phone: [facility] Other Phone: Immunizations Immunization Date Immunization Notes Care Provider Shaunna pardo 12-17-2020 SARS-COV-2 (COVID-19 ), Mrna, Lnp-s, Pf, 100 Mcg/ 0.5 Ml Dose MARIO Kessler MD Work Phone: [facility] 11-19-2020 SARS-COV-2 (COVID-19 ), Mrna, Lnp-s, Pf, 100 Mcg/ 0.5 Ml Dose MARIO Kessler MD Work Phone: [facility] Payers Date Payer Category Payer Medicare HMO [id number] 2023 Self-pay 2021 Medicaid MEDICAID MEDICAI D [id number] 2021-Present [address] [place] [address] [id number] 2021 Medicare MEDICARE MEDICAR E A AND B [id number] 2021-Present [address] [place] [address] [id number] 2018 Medicaid [id number] 2018 Medicare [id number] 2018 Unknown 1959 Medicaid [id number] 1959 Medicare [id number] 1953 Unknown [id number] 1953 Unknown [id number] 1953 Unknown [id number] 1953 Unknown [id number] 1953 Unknown [id number] 1953 Unknown [id number] 1953 Unknown [id number] 1955 Unknown [id number] 2.16.840.1.809570.3.579.2.111 1955 Unknown [id number] 2.16.840.1.778037.3.579.2.111 1955 Unknown [id number] 2.16.840.1.012223.3.579.2.111 1955 Unknown [id number] 2.16.840.1.114978.3.579.2.111 1955 Unknown [id number] 2.16.840.1.363133.3.579.2.93 1955 Unknown [id number] 2.16.840.1.138054.3.579.2.93 1955 Unknown [id number] 2.16.840.1.671826.3.579.2.93 1955 Unknown [id number] 2.16.840.1.135058.3.579.2.93 1955 Unknown [id number] 2.16.840.1.907518.3.579.2.93 1955 Unknown [id number] 2.16.840.1.638845.3.579.2.93 1955 Unknown [id number] 2.16.840.1.179201.3.579.2.93 1955 Unknown [id number] 2.16.840.1.336828.3.579.2.93 1955 Unknown [id number] 2.16.840.1.281643.3.579.2.93 1955 Unknown [id number] 2.16.840.1.121252.3.579.2.93 1955 Unknown [id number] 2.16.840.1.952764.3.579.2.179 1955 Unknown [id number] 2.16.840.1.012290.3.579.2.179 Medicaid [employer] [id number] Unknown [id number] 2.16.840.1.319847.3.579.2.531 Unknown [id number] 2.16.840.1.976915.3.579.2.531 Social History Date Type Detail Facility Start: 05-03-2021 End: 02-24-2023 Tobacco smoking status NMIS Smokes tobacco daily [facility] Start: 05-03-2021 End: 02-24-2023 Tobacco use and exposure Smokeless tobacco non-user [facility] Start: 1955 Sex Assigned At Not on file V [facility] Start: 11-18-2021 End: 10-14-2022 Exposure to SARS-CoV-2 (event) Not sure [facility] History of tobacco use Cigarette Smoker [facility] [employer] Work Phone: Start: 10-31-2020 End: 05-28-2021 Cigarettes smoked current (pack per day) - Reported 0.3 [employer] Start: 09-18-2022 End: 02-10-2024 Alcohol intake Ex-drinker (finding) [employer] Work Phone: Start: 09-19-2022 History SDOH Alcohol Frequency 1 [employer] Work Phone: Start: 09-19-2022 History SDOH Alcohol Std Drinks 0 [employer] Work Phone: Start: 10-31-2020 End: 02-26-2023 Tobacco use panel [employer] How often to you hav e a drink containing alcohol? Never [facility] How many standard drinks containing alcohol do you have on a typical day? Patient does not drink [employer] Start: 06-11-2023 Alcohol Comment quit 1.5 years ago [facility] Start: 06-13-2023 Ex-smoker [facility] Other Phone: Tobacco smoking stat us NHIS Unknown if ever smoked [facility] Start: 09-25-2024 Sex Patient sex un known (finding) [facility] Start: 1955 Sex Assigned At Male F [facility] Start: 04-25-2015 Sex Male (finding) [facility] Functional Status Date Assessment Result Facility NEGATED: Highlighted row Functio nal Status excluded/not available [facility] Other Phone: Mental Status Date Assessment Result Facility Mental Status ex cluded/not available Mental Status excluded/not available [facility] Other Phone: Clinical Notes 05-02-2021 to 04-20-2025 Fabien Macias, DO - 04/20/2025 3:50 PM EDMati Macias, DO - 04/10/2025 11:59 PM Kristine Macias, DO - 03/09/2025 3:30 PM Kristine Macias, DO - 01/10/2025 3:41 PM EDTAttachments Note Date & Type Note Facility 04-20-2025 History of Present illness Narrative Patient Name: Sana Stanley Date of : 1955 Date of Service: 04/20/2025 [place] [facility] [place] Visit: [place] Visit Subjective Sana Stanley is a 69 y.o. male seen today at alf facility for problem and monthly visit. Facility asked me to see the patient to determine his ability to manage his own finances. There is a form to fill out for a rep payee to be named if he is not competent to manage his own finances. He denies medical problems. He does not know where he is. He does not know the day or date. He can not do simple math. Psychiatric problems are being managed by [employer]. Allergies: Patient has no known allergies. Code Status: [facility] BP 108/74 Pulse 92 Temp 36.6 C (97.8 F) Resp 18 Wt 93.9 kg (207 lb) SpO2 94% PF (!) 2 L/min BMI 32.42 kg/m Physical Exam Vitals reviewed. Constitutional: General: He is sleeping. He is not in acute distress. Appearance: He is obese. He is not ill-appearing. Comments: He is in his room in chair watching TV. He is wearing oxygen HENT: Head: Normocephalic. Cardiovascular: Rate and Rhythm: Normal rate and regular rhythm. Pulses: Normal pulses. Heart sounds: No murmur heard. Pulmonary: Effort: Pulmonary effort is normal. No respiratory distress. Breath sounds: Decreased air movement present. Examination of the right-upper field reveals decreased breath sounds. Examination of the left-upper field reveals decreased breath sounds. Examination of the right-middle field reveals decreased breath sounds. Examination of the left-middle field reveals decreased breath sounds. Examination of the right-lower field reveals decreased breath sounds. Examination of the left-lower field reveals decreased breath sounds. Decreased breath sounds present. No wheezing, rhonchi or rales. Musculoskeletal: Right lower le+ Pitting Edema present. Left lower le+ Pitting Edema present. Neurological: General: No focal deficit present. Mental Status: He is easily aroused. He is disoriented. Cranial Nerves: Cranial nerves 2-12 are intact. Motor: Tremor present. Psychiatric: Attention and Perception: He is inattentive. Speech: Speech is delayed. Behavior: Behavior is slowed. Behavior is cooperative. Cognition and Memory: Cognition is impaired. Memory is impaired. He exhibits impaired recent memory and impaired remote memory. Summary / Assessment / Plan 1. Wernicke's encephalopathy 2. Cognitive impairment 3. Schizoaffective disorder, unspecified type [facility]) 4. Parkinson's disease, unspecified whether dyskinesia present, unspecified whether manifestations fluctuate ([facility]) 5. Chronic obstructive pulmonary disease, unspecified COPD type ([facility]) Forms filled out for his rep payee as he is unable to manage his own finances due to Wernicke's encephalopathy and cognitive impairment. There is no cure which will reverse his deficits. His condition will only likely worsen over time. Medically stable. Appreciate psych management by [employer]. All medications reviewed and are medically necessary. ELECTRONICALLY SIGNED BY: Fabien Macias DO documented in this encounter [employer] 04-10-2025 History of Present illness Narrative Patient Name: Sana Stanley Date of : 1955 Date of Service: 04/10/2025 [place] [facility] [place] of Visit: Subsequent Visit Subjective Sana Stanley is a 69 y.o. male seen today at alf facility for regular visit. No new problems reported by staff or patient. Allergies: Patient has no known allergies. [facility]89 Pulse 70 Temp 36.7 C (98.1 F) Resp 18 Wt 93.2 kg (205 lb 6.4 oz) SpO2 97% BMI 32.17 kg/m Physical Exam Vitals reviewed. Constitutional: General: He is sleeping. He is not in acute distress. Appearance: He is obese. Comments: He is in his room in chair sleeping. He is wearing oxygen HENT: Head: Normocephalic. Cardiovascular: Rate and Rhythm: Normal rate and regular rhythm. Pulses: Normal pulses. Heart sounds: No murmur heard. Pulmonary: Effort: Pulmonary effort is normal. No respiratory distress. Breath sounds: Decreased air movement present. Examination of the right-upper field reveals decreased breath sounds. Examination of the left-upper field reveals decreased breath sounds. Examination of the right-middle field reveals decreased breath sounds. Examination of the left-middle field reveals decreased breath sounds. Examination of the right-lower field reveals decreased breath sounds. Examination of the left-lower field reveals decreased breath sounds. Decreased breath sounds present. No wheezing, rhonchi or rales. Neurological: General: No focal deficit present. Mental Status: He is easily aroused. He is disoriented. Cranial Nerves: Cranial nerves 2-12 are intact. Motor: Tremor present. Psychiatric: Attention and Perception: He is inattentive. Speech: Speech is delayed. Behavior: Behavior is slowed. Behavior is cooperative. Cognition and Memory: Cognition is impaired. Memory is impaired. He exhibits impaired recent memory and impaired remote memory. Summary / Assessment / Plan 1. Wernicke's encephalopathy 2. Parkinson's disease, unspecified whether dyskinesia present, unspecified whether manifestations fluctuate ([facility]) 3. Chronic obstructive pulmonary disease, unspecified COPD type ([facility]) Medically stable. Continue current regimen. All medications reviewed and are medically necessary. ELECTRONICALLY SIGNED BY: Fabien Macias DO documented in this encounter [facility] [employer] 03-09-2025 History of Present illness Narrative Patient Name: Sana Stanley Date of : 1955 Date of Service: 03/09/2025 [place] [facility] [place] of Visit: Subsequent Visit Subjective Sana Stanley is a 69 y.o. male seen today at alf facility for regular monthly visit. No new problems reported by staff or patient. He denies chest pain, shortness a breath or pain. He does admit that he is sleepy today. Allergies: Patient has no known allergies. Code Status: [facility] BP 127/77 Pulse 82 Temp 36.2 C (97.2 F) Resp 18 Wt 91 kg (200 lb 9.6 oz) SpO2 97% BMI 31.42 kg/m Physical Exam Vitals reviewed. Constitutional: General: He is sleeping. He is not in acute distress. Appearance: He is obese. Comments: He is in his room in chair sleeping. He is wearing oxygen HENT: Head: Normocephalic. Cardiovascular: Rate and Rhythm: Normal rate and regular rhythm. Pulses: Normal pulses. Heart sounds: No murmur heard. Pulmonary: Effort: Pulmonary effort is normal. No respiratory distress. Breath sounds: Decreased air movement present. Examination of the right-upper field reveals decreased breath sounds. Examination of the left-upper field reveals decreased breath sounds. Examination of the right-middle field reveals decreased breath sounds. Examination of the left-middle field reveals decreased breath sounds. Examination of the right-lower field reveals decreased breath sounds. Examination of the left-lower field reveals decreased breath sounds. Decreased breath sounds present. No wheezing, rhonchi or rales. Musculoskeletal: Right lower le+ Pitting Edema present. Left lower le+ Pitting Edema present. Neurological: General: No focal deficit present. Mental Status: He is easily aroused. He is disoriented. Cranial Nerves: Cranial nerves 2-12 are intact. Motor: Tremor present. Psychiatric: Attention and Perception: He is inattentive. Speech: Speech is delayed. Behavior: Behavior is slowed. Behavior is cooperative. Cognition and Memory: Cognition is impaired. Memory is impaired. He exhibits impaired recent memory and impaired remote memory. Assessment/Plan Summary / Assessment / Plan 1. Chronic obstructive pulmonary disease, unspecified COPD type ([facility]) 2. Wernicke's encephalopathy 3. Parkinson's disease, unspecified whether dyskinesia present, unspecified whether manifestations fluctuate ([facility]) Medically stable. Continue current regimen. Check CMP, CBC, lithium level in May All medications reviewed and are medically necessary ELECTRONICALLY SIGNED BY: Fabien Macias DO documented in this encounter [facility] 01-10-2025 History of Present illness Narrative Patient Name: Sana Stanley Date of : 1955 Date of Service: 01/10/2025 [place] [facility] [place] of Visit: Subsequent Visit Subjective Sana Stanley is a 69 y.o. male seen today at alf facility for regular visit. No new problems reported by staff or patient. He denies shortness a breath. Allergies: Patient has no known allergies. Code Status: [facility] Physical Exam Vitals reviewed. Exam conducted with a [employer] commerce consultant present (Brain Roblero MS 3). Constitutional: General: He is not in acute distress. Appearance: He is obese. Comments: He is in his room in chair watching TV. He is wearing oxygen HENT: Head: Normocephalic. Cardiovascular: Rate and Rhythm: Normal rate and regular rhythm. Pulses: Normal pulses. Heart sounds: No murmur heard. Pulmonary: Effort: Pulmonary effort is normal. No respiratory distress. Breath sounds: Decreased air movement present. Examination of the right-upper field reveals decreased breath sounds. Examination of the left-upper field reveals decreased breath sounds. Examination of the right-middle field reveals decreased breath sounds. Examination of the left-middle field reveals decreased breath sounds. Examination of the right-lower field reveals decreased breath sounds. Examination of the left-lower field reveals decreased breath sounds. Decreased breath sounds and wheezing present. No rhonchi or rales. Abdominal: General: Bowel sounds are normal. Palpations: Abdomen is soft. Tenderness: There is no abdominal tenderness. Musculoskeletal: Cervical back: Neck supple. Right lower le+ Pitting Edema present. Left lower le+ Pitting Edema present. Neurological: General: No focal deficit present. Mental Status: He is alert. He is disoriented. Cranial Nerves: Cranial nerves 2-12 are intact. Motor: Tremor present. Psychiatric: Attention and Perception: He is inattentive. Speech: Speech is delayed. Behavior: Behavior is slowed. Behavior is cooperative. Cognition and Memory: Cognition is impaired. Memory is impaired. He exhibits impaired recent memory and impaired remote memory. Summary / Assessment / Plan 1. Parkinson's disease, unspecified whether dyskinesia present, unspecified whether manifestations fluctuate ([facility]) 2. Chronic obstructive pulmonary disease, unspecified COPD type ([facility]) 3. Wernicke's encephalopathy 4. Schizoaffective disorder, unspecified type ([facility]) Medically stable. Continue current regimen. All medications reviewed and are medically necessary. Psychiatry service is managing his psychiatric medications. Appreciate their management. ELECTRONICALLY SIGNED BY: Fabien Macias DO documented in this encounter [facility] 12-07-2024 History of Present illness Narrative Patient Name: Sana Stanley Date of : 1955 Date of Service: 12/07/2024 [place] [facility] [place] of Visit: Subsequent Visit Subjective Sana Stanley is a 69 y.o. male seen today at alf facility for regular monthly visit. No new problems reported by staff or patient. Allergies: Patient has no known allergies. Code Status: [facility] BP 124/70 Pulse 82 Temp 37 C (98.6 F) Wt 90.6 kg (199 lb 12.8 oz) SpO2 94% BMI 31.29 kg/m Physical Exam Vitals reviewed. Constitutional: General: He is not in acute distress. Appearance: He is obese. Comments: He is in his room in chair watching TV. He is wearing oxygen HENT: Head: Normocephalic. Cardiovascular: Rate and Rhythm: Normal rate and regular rhythm. Pulses: Normal pulses. Heart sounds: No murmur heard. Pulmonary: Effort: Pulmonary effort is normal. No respiratory distress. Breath sounds: Decreased air movement present. Examination of the right-upper field reveals decreased breath sounds. Examination of the left-upper field reveals decreased breath sounds. Examination of the right-middle field reveals decreased breath sounds. Examination of the left-middle field reveals decreased breath sounds. Examination of the right-lower field reveals decreased breath sounds. Examination of the left-lower field reveals decreased breath sounds. Decreased breath sounds present. No wheezing, rhonchi or rales. Abdominal: General: Bowel sounds are normal. Palpations: Abdomen is soft. Tenderness: There is no abdominal tenderness. Musculoskeletal: Cervical back: Neck supple. Right lower le+ Pitting Edema present. Left lower le+ Pitting Edema present. Neurological: General: No focal deficit present. Mental Status: He is alert. He is disoriented. Cranial Nerves: Cranial nerves 2-12 are intact. Motor: Tremor present. Gait: Gait abnormal (using wheeled walker with seat). Psychiatric: Mood and Affect: Mood normal. Speech: Speech normal. Behavior: Behavior normal. Behavior is cooperative. Thought Content: Thought content normal. Cognition and Memory: Cognition is impaired. Memory is impaired. He exhibits impaired recent memory and impaired remote memory. Summary / Assessment / Plan 1. Wernicke's encephalopathy 2. Extrapyramidal and movement disorder, unspecified 3. Stage 2 chronic kidney disease due to benign hypertension 4. Schizoaffective disorder, unspecified type ([facility]) Medically stable. Continue current regimen. All medications reviewed and are medically necessary. ELECTRONICALLY SIGNED BY: Fabien Macias DO documented in this encounter [employer] 11-07-2024 History of Present illness Narrative Patient Name: Sana Stanley Date of : 1955 Date of Service: 11/07/2024 [place] [facility] [place] of Visit: Skilled Visit Subjective Sana Stanley is a 69 y.o. male seen today at alf facility for therapy visit. Sana is still in therapy. He feels that he is getting better. He has no new problems to report. Staff does not have any new concerns for me. Allergies: Patient has no known allergies. Code Status: [facility] BP (!) 122/98 Pulse 110 SpO2 98% Physical Exam Vitals reviewed. Exam conducted with a [employer] commerce consultant present (Priyank Byrd MS 3). Constitutional: General: He is not in acute distress. Appearance: He is obese. Comments: He is in his room eating lunch. He is wearing oxygen HENT: Head: Normocephalic. Cardiovascular: Rate and Rhythm: Normal rate and regular rhythm. Pulses: Normal pulses. Heart sounds: No murmur heard. Pulmonary: Effort: Pulmonary effort is normal. No respiratory distress. Breath sounds: Decreased air movement present. Examination of the right-upper field reveals decreased breath sounds. Examination of the left-upper field reveals decreased breath sounds. Examination of the right-middle field reveals decreased breath sounds. Examination of the left-middle field reveals decreased breath sounds. Examination of the right-lower field reveals decreased breath sounds. Examination of the left-lower field reveals decreased breath sounds. Decreased breath sounds present. No wheezing, rhonchi or rales. Abdominal: General: Bowel sounds are normal. Palpations: Abdomen is soft. Tenderness: There is no abdominal tenderness. Musculoskeletal: Cervical back: Neck supple. Neurological: General: No focal deficit present. Mental Status: He is alert. He is disoriented. Cranial Nerves: Cranial nerves 2-12 are intact. Motor: Tremor present. Gait: Gait abnormal (using wheeled walker with seat). Psychiatric: Attention and Perception: Attention normal. Mood and Affect: Mood normal. Speech: Speech normal. Behavior: Behavior normal. Behavior is cooperative. Thought Content: Thought content normal. Cognition and Memory: Cognition is impaired. Memory is impaired. He exhibits impaired recent memory and impaired remote memory. Summary / Assessment / Plan 1. Chronic obstructive pulmonary disease, unspecified COPD type ([facility]) 2. Protein-calorie malnutrition, unspecified severity ([facility]) 3. Parkinson's disease, unspecified whether dyskinesia present, unspecified whether manifestations fluctuate ([facility]) 4. Mild cognitive impairment Continue therapy to reach maximum improvement. Medically stable. Continue current regimen. All medications reviewed and are medically necessary. ELECTRONICALLY SIGNED BY: Fabien Macias DO documented in this encounter [employer] 10-31-2024 History of Present illness Narrative Patient Name: Sana Stanley Date of : 1955 Date of Service: 10/31/2024 [place] [facility] [place] of Visit: Skilled Visit Subjective Sana Stanley is a 69 y.o. male seen today at alf facility for therapy visit. Dave is in therapy. No new problems are reported by staff or patient. He is getting physical, occupational and speech therapy. Good participation was noted. Allergies: Patient has no known allergies. Code Status: [facility] BP 147/69 Pulse 92 SpO2 90% Physical Exam Vitals reviewed. Exam conducted with a [employer] commerce consultant present (Priyank Byrd MS 3). Constitutional: General: He is not in acute distress. Appearance: He is obese. He is ill-appearing (chronically). Comments: He is in his room watching TV . He is wearing oxygen HENT: Head: Normocephalic. Cardiovascular: Rate and Rhythm: Normal rate and regular rhythm. Pulses: Normal pulses. Heart sounds: No murmur heard. Pulmonary: Effort: Pulmonary effort is normal. No respiratory distress. Breath sounds: No wheezing, rhonchi or rales. Musculoskeletal: Cervical back: Neck supple. Neurological: General: No focal deficit present. Mental Status: He is alert. He is disoriented. Cranial Nerves: Cranial nerves 2-12 are intact. Motor: Tremor present. Gait: Gait abnormal (using wheeled walker with seat). Psychiatric: Attention and Perception: Attention normal. Mood and Affect: Mood normal. Speech: Speech normal. Behavior: Behavior normal. Behavior is cooperative. Thought Content: Thought content normal. Cognition and Memory: Cognition is impaired. Memory is impaired. He exhibits impaired recent memory and impaired remote memory. Summary / Assessment / Plan 1. Parkinson's disease, unspecified whether dyskinesia present, unspecified whether manifestations fluctuate ([facility]) 2. Wernicke's encephalopathy 3. Mild cognitive impairment 4. Chronic obstructive pulmonary disease, unspecified COPD type ([facility]) 5. Protein-calorie malnutrition, unspecified severity ([facility]) Continue therapy to reach maximum improvement. Medically stable. Continue current regimen. ELECTRONICALLY SIGNED BY: Fabien Macias DO [email or web address] History of Present illness Narrative Patient Name: Sana Stanley Date of : 1955 Date of Service: 10/27/2024 [place] [facility] [place] of Visit: Skilled Visit Subjective Sana Stanley is a 69 y.o. male seen today at alf facility for therapy visit. Dave is in therapy still. They are working on balance, strengthening, transfers and mobility. They also working with him for self-care tasks. Speech is focusing on safe swallowing strategies and improving oral strengthening to increase mastication for improve swallowing. He denies any new problems today. Staff reports no new problems. Allergies: Patient has no known allergies. Code Status: [facility] BP (!) 150/91 Pulse 81 Wt 90.3 kg (199 lb) SpO2 95% BMI 31.17 kg/m Physical Exam Vitals reviewed. Exam conducted with a [employer] commerce consultant present (Priyank Byrd MS 3). Constitutional: General: He is not in acute distress. Appearance: He is obese. Comments: He is in his room watching TV . He is wearing oxygen HENT: Head: Normocephalic. Cardiovascular: Rate and Rhythm: Normal rate and regular rhythm. Pulses: Normal pulses. Heart sounds: No murmur heard. Pulmonary: Effort: Pulmonary effort is normal. No respiratory distress. Breath sounds: Rhonchi (with coughing) present. No wheezing or rales. Abdominal: General: Bowel sounds are normal. Palpations: Abdomen is soft. Tenderness: There is no abdominal tenderness. Musculoskeletal: Cervical back: Neck supple. Neurological: General: No focal deficit present. Mental Status: He is alert. He is disoriented. Cranial Nerves: Cranial nerves 2-12 are intact. Motor: Tremor present. Gait: Gait abnormal (using wheeled walker with seat). Psychiatric: Attention and Perception: Attention normal. Mood and Affect: Mood normal. Speech: Speech normal. Behavior: Behavior normal. Behavior is cooperative. Thought Content: Thought content normal. Cognition and Memory: Cognition is impaired. Memory is impaired. He exhibits impaired recent memory and impaired remote memory. Summary / Assessment / Plan 1. Wernicke's encephalopathy 2. Chronic obstructive pulmonary disease, unspecified COPD type (CMS-HCC) 3. Parkinson's disease, unspecified whether dyskinesia present, unspecified whether manifestations fluctuate (CMS-HCC) Continue therapy to reach maximum improvement. He has rhonchi today with coughing but is in no acute distress. Continue inhalers. All medications reviewed and are medically necessary. ELECTRONICALLY SIGNED BY: Fabien Macias DO documented in this encounter [employer] 10-17-2024 History of Present illness Narrative Patient Name: Sana Stanley Date of : 1955 Date of Service: 10/17/2024 [place] [facility] [place] Visit: [place]illed Visit Subjective Sana Stanley is a 69 y.o. male seen today at alf facility for therapy visit. June is in therapy. They are working on ambulation , balance and strengthening. Speech is focusing on swallowing strategies. Staff reports no new problems. Allergies: Patient has no known allergies. [facility]69 Pulse 72 Temp 36.5 C (97.7 F) Resp 18 SpO2 94% Physical Exam Vitals reviewed. Exam conducted with a [employer] commerce consultant present (Carisa Aly MS 3). Constitutional: General: He is not in acute distress. Appearance: He is obese. He is not ill-appearing. Comments: He is in his room watching TV HENT: Head: Normocephalic. Cardiovascular: Rate and Rhythm: Normal rate and regular rhythm. Pulses: Normal pulses. Heart sounds: No murmur heard. Pulmonary: Effort: Pulmonary effort is normal. No respiratory distress. Breath sounds: Normal breath sounds. No wheezing, rhonchi or rales. Abdominal: General: Bowel sounds are normal. Palpations: Abdomen is soft. Tenderness: There is no abdominal tenderness. Musculoskeletal: Cervical back: Neck supple. Neurological: General: No focal deficit present. Mental Status: He is alert. He is disoriented. Cranial Nerves: Cranial nerves 2-12 are intact. Motor: Tremor present. Gait: Gait abnormal (using wheeled walker with seat). Psychiatric: Attention and Perception: Attention normal. Mood and Affect: Mood normal. Speech: Speech normal. Behavior: Behavior normal. Behavior is cooperative. Thought Content: Thought content normal. Cognition and Memory: Cognition is impaired. Memory is impaired. He exhibits impaired recent memory and impaired remote memory. Summary / Assessment / Plan 1. Parkinson's disease, unspecified whether dyskinesia present, unspecified whether manifestations fluctuate ([facility]) 2. Wernicke's encephalopathy 3. Chronic obstructive pulmonary disease, unspecified COPD type ([facility]) 4. Extrapyramidal and movement disorder, unspecified Continue therapy to reach maximum improvement. Medically stable. Continue current regimen. All medications reviewed and are medically necessary. ELECTRONICALLY SIGNED BY: Fabien Macias DO documented in this encounter [facility] [employer] 10-10-2024 History of Present illness Narrative Patient Name: Sana Stanley Date of : 1955 Date of Service: 10/10/2024 [place] [facility] [facility] [place] of Visit: [place]illed Visit Subjective Sana Stanley is a 69 y.o. male seen today at alf facility for therapy visit. Dave is in therapy and is participating. He was referred due to a recent fall. He is walking 15 ft with a 4 wheeled walker with standby assistance. Speech is focusing on safe swallowing strategies. There are no new medical problems to report. Allergies: Patient has no known allergies. Code Status: [facility] Objective BP 138/77 Pulse 77 Temp 36.4 C (97.6 F) Resp 20 SpO2 97% Physical Exam Vitals reviewed. Exam conducted with a [employer] commerce consultant present (Carisa Aly MS 3). Constitutional: General: He is not in acute distress. Appearance: He is obese. He is not ill-appearing. Comments: He is in his room watching TV HENT: Head: Normocephalic. Cardiovascular: Rate and Rhythm: Normal rate and regular rhythm. Pulses: Normal pulses. Heart sounds: No murmur heard. Pulmonary: Effort: Pulmonary effort is normal. No respiratory distress. Breath sounds: Normal breath sounds. No wheezing, rhonchi or rales. Musculoskeletal: Cervical back: Neck supple. Neurological: General: No focal deficit present. Mental Status: He is alert. He is disoriented. Cranial Nerves: Cranial nerves 2-12 are intact. Motor: Tremor present. Gait: Gait abnormal (using wheeled walker with seat). Psychiatric: Attention and Perception: Attention normal. Mood and Affect: Mood normal. Speech: Speech normal. Behavior: Behavior normal. Behavior is cooperative. Thought Content: Thought content normal. Cognition and Memory: Cognition is impaired. Memory is impaired. He exhibits impaired recent memory and impaired remote memory. Summary / Assessment / Plan 1. Parkinson's disease, unspecified whether dyskinesia present, unspecified whether manifestations fluctuate (CMS-HCC) 2. Schizoaffective disorder, unspecified type (CMS-HCC) 3. Wernicke's encephalopathy 4. Chronic obstructive pulmonary disease, unspecified COPD type (CMS-HCC) Continue therapy to reach maximum improvement. Medically stable. Continue current regimen. ELECTRONICALLY SIGNED BY: Fabien Macias DO documented in this encounter [facility] [employer] 10-03-2024 History of Present illness Narrative Patient Name: Sana Stanley Date of : 1955 Date of Service: 10/03/2024 [place] [facility] [place] of Visit: Skilled Visit Subjective Sana Stanley is a 69 y.o. male seen today at alf facility for therapy visit. Dave is in physical therapy. He was referred because of a recent fall, decline in mobility and transfers and recent change in swallowing. He has no new problems to report. Nursing has no new concerns. Allergies: Patient has no known allergies. Code Status: [facility] BP 127/68 Pulse 82 Temp 36.8 C (98.3 F) Resp 20 SpO2 98% Physical Exam Vitals reviewed. Exam conducted with a [employer] commerce consultant present (Carisa Riveraating MS 3). Constitutional: General: He is not in acute distress. Appearance: He is obese. He is not ill-appearing. Comments: He is in his room watching TV HENT: Head: Normocephalic. Cardiovascular: Rate and Rhythm: Normal rate and regular rhythm. Pulses: Normal pulses. Heart sounds: No murmur heard. Pulmonary: Effort: Pulmonary effort is normal. No respiratory distress. Breath sounds: Normal breath sounds. No wheezing, rhonchi or rales. Abdominal: General: Bowel sounds are normal. Palpations: Abdomen is soft. Tenderness: There is no abdominal tenderness. Musculoskeletal: Cervical back: Neck supple. Neurological: General: No focal deficit present. Mental Status: He is alert. He is disoriented. Cranial Nerves: Cranial nerves 2-12 are intact. Motor: Tremor present. Gait: Gait abnormal (using wheeled walker with seat). Psychiatric: Attention and Perception: Attention normal. Mood and Affect: Mood normal. Speech: Speech normal. Behavior: Behavior normal. Behavior is cooperative. Thought Content: Thought content normal. Cognition and Memory: Cognition is impaired. Memory is impaired. He exhibits impaired recent memory and impaired remote memory. Summary / Assessment / Plan 1. Chronic obstructive pulmonary disease, unspecified COPD type (CMS-HCC) 2. Parkinson's disease, unspecified whether dyskinesia present, unspecified whether manifestations fluctuate (CMS-HCC) 3. Mild cognitive impairment 4. Wernicke's encephalopathy Patient is starting therapy for a recent fall. He needs improvement with gait, mobility, transfers and eating. Continue current regimen. All medications reviewed and are medically necessary. ELECTRONICALLY SIGNED BY: Fabien Macias DO documented in this encounter [facility] 08-11-2024 History of Present illness Narrative Patient Name: Sana Stanley Date of : 1955 Date of Service: 08/11/2024 Facility: [facility] Type of Visit: Subsequent Visit Subjective Sana Stanley is a 69 y.o. male seen today at alf facility for monthly visit. No new problems reported by staff or patient. He denies pain. Appetite is good. Allergies: Patient has no known allergies. Code Status: [facility] BP 158/78 Pulse 88 Wt 91.3 kg (201 lb 3.2 oz) BMI 31.51 kg/m Physical Exam Constitutional: General: He is not in acute distress. Appearance: He is obese. Comments: He is in his room watching TV HENT: Head: Normocephalic. Cardiovascular: Rate and Rhythm: Normal rate and regular rhythm. Pulses: Normal pulses. Heart sounds: No murmur heard. Pulmonary: Effort: Pulmonary effort is normal. No respiratory distress. Breath sounds: Normal breath sounds. No wheezing, rhonchi or rales. Abdominal: General: Bowel sounds are normal. Palpations: Abdomen is soft. Tenderness: There is no abdominal tenderness. Musculoskeletal: Cervical back: Neck supple. Neurological: General: No focal deficit present. Mental Status: He is alert. He is disoriented. Cranial Nerves: Cranial nerves 2-12 are intact. Motor: Tremor present. Gait: Gait abnormal (using wheeled walker with seat). Psychiatric: Attention and Perception: Attention normal. Behavior: Behavior normal. Behavior is cooperative. Thought Content: Thought content normal. Cognition and Memory: Cognition is impaired. Memory is impaired. He exhibits impaired recent memory and impaired remote memory. Summary / Assessment / Plan 1. Wernicke's encephalopathy 2. Parkinson's disease, unspecified whether dyskinesia present, unspecified whether manifestations fluctuate ([facility]) 3. Chronic obstructive pulmonary disease, unspecified COPD type ([facility]) 4. Stage 2 chronic kidney disease due to benign hypertension Medically stable. Continue current regimen. All medications reviewed and are medically necessary. ELECTRONICALLY SIGNED BY: Fabien Macias DO documented in this encounter [employer] 07-11-2024 History of Present illness Narrative Patient Name: Sana Stanley Date of : 1955 Date of Service: 07/11/2024 Facility: [facility] Type of Visit: Skilled Visit Cora Stanley is a 69 y.o. male seen today at alf [facility] for therapy visit. Dave is in therapy. He is going to be discharged later this week. The staff has no new problems to report. He denies any problems. He denies pain. Appetite is okay. Allergies: Patient has no known allergies. Code Status: [facility] BP 108/70 Pulse 60 Physical Exam Constitutional: General: He is not in acute distress. Appearance: He is obese. Comments: He is in his room HENT: Head: Normocephalic. Cardiovascular: Rate and Rhythm: Normal rate and regular rhythm. Pulses: Normal pulses. Heart sounds: No murmur heard. Pulmonary: Effort: Pulmonary effort is normal. No respiratory distress. Breath sounds: Normal breath sounds. No wheezing, rhonchi or rales. Neurological: General: No focal deficit present. Mental Status: He is alert. He is disoriented. Cranial Nerves: Cranial nerves 2-12 are intact. Motor: Tremor present. Gait: Gait abnormal (using wheeled walker with seat). Psychiatric: Attention and Perception: Attention normal. Behavior: Behavior normal. Behavior is cooperative. Thought Content: Thought content normal. Cognition and Memory: Cognition is impaired. Memory is impaired. He exhibits impaired recent memory and impaired remote memory. Comments: Poor eye contact Summary / Assessment / Plan 1. Parkinson's disease, unspecified whether dyskinesia present, unspecified whether manifestations fluctuate ([facility]) 2. Mild cognitive impairment 3. Schizoaffective disorder, unspecified type ([facility]) 4. Wernicke's encephalopathy Finish out therapy to reach maximum improvement. Medically stable. Continue current regimen. All medications reviewed and are medically necessary. ELECTRONICALLY SIGNED BY: Fabien Macias DO documented in this encounter [facility] [employer] 07-04-2024 History of Present illness Narrative Patient Name: Sana Stanley Date of : 1955 Date of Service: 07/04/2024 Facility: [facility] Type of Visit: Skilled Visit Subjective Sana Stanley is a 69 y.o. male seen today at alf facility for therapy visit. Dave is participating in physical therapy. There are no new problems reported by staff or patient. They are going to continue therapy for at least another week to increase standing tolerance, strength and balance Allergies: Patient has no known allergies. Code Status: [facility] BP 116/74 Pulse 76 Physical Exam Constitutional: General: He is not in acute distress. Appearance: He is obese. Comments: He is in dining room HENT: Head: Normocephalic. Cardiovascular: Rate and Rhythm: Normal rate and regular rhythm. Pulses: Normal pulses. Heart sounds: No murmur heard. Pulmonary: Effort: Pulmonary effort is normal. No respiratory distress. Breath sounds: Normal breath sounds. No wheezing, rhonchi or rales. Abdominal: General: Bowel sounds are normal. Palpations: Abdomen is soft. Tenderness: There is no abdominal tenderness. Musculoskeletal: Cervical back: Neck supple. Lymphadenopathy: Cervical: No cervical adenopathy. Skin: Coloration: Skin is pale. Neurological: General: No focal deficit present. Mental Status: He is alert. He is disoriented. Cranial Nerves: Cranial nerves 2-12 are intact. Motor: Tremor present. Gait: Gait abnormal (using wheeled walker with seat). Psychiatric: Attention and Perception: Attention normal. Behavior: Behavior normal. Behavior is cooperative. Thought Content: Thought content normal. Cognition and Memory: Cognition is impaired. Memory is impaired. He exhibits impaired recent memory and impaired remote memory. Comments: Poor eye contact Summary / Assessment / Plan 1. Wernicke's encephalopathy 2. Extrapyramidal and movement disorder, unspecified 3. Parkinson's disease, unspecified whether dyskinesia present, unspecified whether manifestations fluctuate (CMS-HCC) Continue therapy to reach maximum improvement. Medically stable. Continue current regimen. All medications reviewed and are medically necessary. ELECTRONICALLY SIGNED BY: Fabien Macias DO documented in this encounter [employer] 06-27-2024 History of Present illness Narrative Patient Name: Sana Stanley Date of : 1955 Date of Service: 06/27/2024 Facility: [facility] Type of Visit: Skilled Visit Subjective Sana Stanley is a 69 y.o. male seen today at alf facility for therapy visit. No new problems reported by staff or patient except that he seems to be incontinent more frequently. He does voice his needs. He is now on a 2 hour toileting schedule. Allergies: Patient has no known allergies. Code Status: [facility] BP 134/76 Pulse 82 Wt 88.6 kg (195 lb 6.4 oz) BMI 30.60 kg/m Physical Exam Constitutional: General: He is not in acute distress. Appearance: He is obese. Comments: He is in dining room and ate all of his lunch. HENT: Head: Normocephalic. Cardiovascular: Rate and Rhythm: Normal rate and regular rhythm. Pulses: Normal pulses. Heart sounds: No murmur heard. Pulmonary: Effort: Pulmonary effort is normal. No respiratory distress. Breath sounds: Normal breath sounds. No wheezing, rhonchi or rales. Abdominal: General: Bowel sounds are normal. Palpations: Abdomen is soft. Tenderness: There is no abdominal tenderness. Musculoskeletal: Cervical back: Neck supple. Lymphadenopathy: Cervical: No cervical adenopathy. Skin: Coloration: Skin is pale. Neurological: General: No focal deficit present. Mental Status: He is alert. He is disoriented. Cranial Nerves: Cranial nerves 2-12 are intact. Motor: Tremor present. Gait: Gait abnormal (using wheeled walker with seat). Psychiatric: Attention and Perception: Attention normal. Mood and Affect: Mood normal. Behavior: Behavior normal. Behavior is cooperative. Thought Content: Thought content normal. Cognition and Memory: Cognition is impaired. Memory is impaired. He exhibits impaired recent memory and impaired remote memory. Assessment/Plan Summary / Assessment / Plan 1. Wernicke's encephalopathy 2. Parkinson's disease, unspecified whether dyskinesia present, unspecified whether manifestations fluctuate ([facility]) 3. BPH with lower urinary tract symptoms without urinary obstruction Medically stable. Continue current regimen. Continue therapy to reach maximum improvement. All medications reviewed and are medically necessary. ELECTRONICALLY SIGNED BY: Fabien Macias DO documented in this encounter [facility] [employer] 06-23-2024 History of Present illness Narrative Patient Name: Sana Stanley Date of : 1955 Date of Service: 06/23/2024 Facility: [facility] Type of Visit: Skilled Visit Subjective Sana Stanley is a 69 y.o. male seen today at alf facility for skilled visit. Dave is participating in therapy. He was evaluated for PT and OT to establish a baseline for transition to LTC. He denies problems. Allergies: Patient has no known allergies. Code Status: [facility] BP 135/82 Pulse 82 Temp 36.4 C (97.5 F) Resp 18 SpO2 94% Physical Exam Constitutional: General: He is not in acute distress. Appearance: He is obese. HENT: Head: Normocephalic. Eyes: General: No scleral icterus. Extraocular Movements: Extraocular movements intact. Conjunctiva/sclera: Conjunctivae normal. Cardiovascular: Rate and Rhythm: Normal rate and regular rhythm. Pulses: Normal pulses. Heart sounds: No murmur heard. Pulmonary: Effort: Pulmonary effort is normal. No respiratory distress. Breath sounds: Normal breath sounds. No wheezing, rhonchi or rales. Abdominal: General: Bowel sounds are normal. Palpations: Abdomen is soft. Tenderness: There is no abdominal tenderness. Musculoskeletal: Cervical back: Neck supple. Lymphadenopathy: Cervical: No cervical adenopathy. Skin: Coloration: Skin is pale. Neurological: General: No focal deficit present. Mental Status: He is alert. He is disoriented. Cranial Nerves: Cranial nerves 2-12 are intact. Motor: Tremor present. Gait: Gait abnormal. Psychiatric: Attention and Perception: Attention normal. Mood and Affect: Mood normal. Behavior: Behavior normal. Behavior is cooperative. Thought Content: Thought content normal. Cognition and Memory: Cognition is impaired. Memory is impaired. He exhibits impaired recent memory and impaired remote memory. Summary / Assessment / Plan 1. Wernicke's encephalopathy 2. Chronic obstructive pulmonary disease, unspecified COPD type ([facility]) 3. Parkinson's disease, unspecified whether dyskinesia present, unspecified whether manifestations fluctuate (CMS-HCC) 4. Stage 2 chronic kidney disease due to benign hypertension 5. Mild cognitive impairment I'm going to check labs to establish a baseline with a CMP, CBC, lipids and lithium level. Continue therapy to reach maximum improvement. All other medications reviewed and are medically necessary. ELECTRONICALLY SIGNED BY: Fabien Macias DO documented in this encounter [employer] 06-09-2024 History of Present illness Narrative Patient Name: Sana Stanley Date of : 1955 Date of Service: 06/09/2024 Facility: [facility] Type of Visit: Admission H&P Subjective Sana Stanley is a 69 y.o. male seen today at alf facility for admission H&P. Paper H&P reviewed and updated. Dave presents to [facility] from [facility] for long-term care. He has no new problems to report. He denies CP, SOB or pain. No past medical history on file. No past surgical history on file. No family history on file. Allergies: Patient has no known allergies. [facility] The following portions of the patient's history were reviewed and updated as appropriate: allergies, current medications, past family history, past medical history, past social history, past surgical history, problem list, and medication reconciliation was completed including current medication and post discharge medication. BP (!) 119/93 Pulse 92 Temp 36.8 C (98.2 F) Resp 18 Wt 86.7 kg (191 lb 3.2 oz) SpO2 93% BMI 29.95 kg/m Physical Exam Constitutional: General: He is not in acute distress. Appearance: He is obese. HENT: Head: Normocephalic. Right Ear: External ear normal. Left Ear: External ear normal. Eyes: General: No scleral icterus. Extraocular Movements: Extraocular movements intact. Conjunctiva/sclera: Conjunctivae normal. Cardiovascular: Rate and Rhythm: Normal rate and regular rhythm. Pulses: Normal pulses. Heart sounds: No murmur heard. Pulmonary: Effort: Pulmonary effort is normal. Breath sounds: Normal breath sounds. Abdominal: General: Bowel sounds are normal. There is no distension. Palpations: Abdomen is soft. There is no mass. Tenderness: There is no abdominal tenderness. Hernia: No hernia is present. Musculoskeletal: Cervical back: Neck supple. Right lower leg: No edema. Left lower leg: No edema. Lymphadenopathy: Cervical: No cervical adenopathy. Skin: Coloration: Skin is pale. Neurological: General: No focal deficit present. Mental Status: He is alert. He is disoriented. Cranial Nerves: Cranial nerves 2-12 are intact. Motor: Tremor present. Gait: Gait abnormal. Psychiatric: Attention and Perception: Attention normal. Mood and Affect: Mood normal. Behavior: Behavior normal. Behavior is cooperative. Thought Content: Thought content normal. Cognition and Memory: Cognition is impaired. Memory is impaired. He exhibits impaired recent memory and impaired remote memory. Summary / Assessment / Plan 1. Schizoaffective disorder, bipolar type ([facility]) 2. Wernicke's encephalopathy 3. Chronic obstructive pulmonary disease, unspecified COPD type ([facility]) 4. Parkinson's disease, unspecified whether dyskinesia present, unspecified whether manifestations fluctuate ([facility]) 5. Nicotine dependence, cigarettes, uncomplicated 6. Extrapyramidal and movement disorder, unspecified 7. Iliotibial band syndrome, unspecified laterality 8. Stage 2 chronic kidney disease due to benign hypertension 9. Class 1 obesity due to excess calories with serious comorbidity in adult, unspecified BMI 10. Convulsions, unspecified convulsion type ([facility]) 11. Hyperplasia of prostate without lower urinary tract symptoms (LUTS) 12. White matter disease 13. Gastroesophageal reflux disease, unspecified whether esophagitis present Admit to [facility] for jail care. DNCC. Continue current regimen. Will follow ELECTRONICALLY SIGNED BY: Fabien Macias DO documented in this encounter [facility] 03-04-2024 Note Miguel Kessler MD Patient ID: Sana Stanley is a 68 y.o. male CC: Brianda CUENCA History and PhysicalFacility visit for Essential Hypertension, COPD, Parkinson's disease, Seizure Disorder, GERD, Essential Tremor, Mild Cognitive Impairment, Alcohol Use Disorder, Severe, In Sustained Remission, BPH, Schizoaffective Disorder, Bipolar Type, Diverticulosis, history of unsteady gait,Rolon's Palsy, resolved, history of influenza vaccination, pneumonia hypoxemia, all resolved,. Mass Of Right Shoulder, history ofCOVID-19 infection. HPI: Patient reports feeling well. Underwent cardiac testing by his it quality analyst and had an echocardiogram which showed an EF of 50 to 55%, grade 1 diastolic dysfunction with normal left ventricular EF, mild aortic regurgitation and normal stress test. Results discussed with patient. Patient during interview and examination was noted to have and endorsed bradykinesia, shuffling gait, intention tremor. Has history of Parkinson's disease. Reports no recent Neurology consultation. Patient reports no and denies any symptoms at rest or with modest exertion of uncontrolled hypertension, hypotension, decompensated COPD as noted,.symptoms or signs of decompensated Parkinson's disease,any recent or remote seizures or reported seizure, any warning symptoms of GERD or any recent or remote uncontrolled symptoms of GERD, new or unmanageable tremors, any new emotional decompensation. No new nursing concerns regarding this patient's health. 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 Simple chronic bronchitis Tonic-clonic seizure disorder Wernicke-Korsakoff syndrome (alcoholic) White matter disease Additional Medical History: Patient Active Problem List Diagnosis COPD, mild Gastroesophageal reflux disease without esophagitis Parkinson's disease Essential tremor Mild cognitive impairment Seizure disorder Benign prostatic hyperplasia without lower urinary tract symptoms Severe alcohol use disorder, in sustained remission Schizoaffective disorder, bipolar type Essential hypertension Unsteady gait Hypertensive heart disease without heart failure Cigarette nicotine dependence, uncomplicated Obesity (BMI 30.0-34.9) Cigarette nicotine dependence in remission Mass of joint of right shoulder Intractable chronic migraine without aura and without status migrainosus PSHx: Past Surgical History: Procedure Laterality Date COLONOSCOPY DIAGNOSTIC 02/2018 HEART CATHETERIZATION 01/14/2017 REPAIR SHOULDER ROTATOR CUFF Left 09/2016 LEG SURGERY Bilateral MEDICATIONS: Current Outpatient Medications Medication Sig Dispense Refill acetaminophen (Tylenol) 325 MG tablet Take 2 tablets by mouth every 4 hours as needed for Mild Pain. 60 tablet 5 albuterol 108 (90 Base) MCG/ACT Aero Soln inhaler Inhale 2 puffs 4 times daily. aspirin EC [address] Take 81 mg by mouth daily. atorvastatin 40 MG tablet Take 1 tablet by mouth daily. 90 tablet 1 busPIRone 10 MG tablet Take 1 tablet by mouth 3 times daily. carbidopa-levodopa 50-200 MG Tab CR Take 1 tablet by mouth 2 times daily. faMOTIdine 20 MG tablet Take 20 mg by mouth daily. finasteride 5 MG tablet Take 5 mg by mouth daily. hydrOXYzine pamoate 25 MG capsule Take 1 capsule by mouth Every night. lithium 300 MG capsule Take 300 mg by mouth 2 times daily with meals. LORazepam 0.5 MG tablet Take 1 tablet by mouth 2 times daily. LORazepam 1 MG tablet Take 1 tablet by mouth at bedtime. losartan 25 MG tablet Take 25 mg by mouth daily. OLANZapine 10 MG tablet Take 10 mg by mouth daily every morning. selegiline 5 MG capsule Take 5 mg by mouth 2 times daily. Tamsulosin HCl 0.4 MG capsule Take 0.4 mg by mouth daily. traZODone 50 MG tablet Take 1 tablet by mouth at bedtime. No current facility-administered medications for this visit. 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 ROS: Review of Systems Constitutional: Negative for weakness, appetite change, weight loss or weight change. Cardiovascular: Negative for chest pain, chest pressure, orthopnea or leg swelling. HEENT: Negative for sore throats, otalgia, sinus congestion or drainage. Respiratory: Denies dyspnea, pleuritic discomfort, cough, hemoptysis. Gastrointestinal: Negative for (more content not included)... [facility] 02-05-2024 Hospital Discharge instructions Jose Ballard MD - 02/05/2024 8:04 PM EDT Take your medication as indicated. For pain use ibuprofen (Motrin / Advil) or acetaminophen (Tylenol), unless prescribed medications that have acetaminophen in it. You can take over the counter acetaminophen tablets (1 - 2 tablets of the 500-mg strength every 6 hours) or ibuprofen tablets (2 tablets every 4 hours). If you have not had a stress test in over a year your primary care physician may order this test as further work-up for your chest pain. If you have a it quality analyst, then you should also call them to discuss further treatment options. PLEASE RETURN TO THE EMERGENCY DEPARTMENT IMMEDIATELY for worsening symptoms of increasing pain, shortness of breath, feeling of your heart fluttering or racing, swelling to your feet, unable to lay flat, or if you develop any concerning symptoms such as: high fever not relieved by acetaminophen (Tylenol) and/or ibuprofen (Motrin / Advil), chills, persistent nausea and/or vomiting, loss of consciousness, numbness, weakness or tingling in the arms or legs or change in color of the extremities, changes in mental status, persistent headache, blurry vision, loss of bladder / bowel control, unable to follow up with your physician, or other any other care or concern. The following attachments cannot be sent through Care Everywhere.Chest Pain ([place]oz[place]ican)Is It a Heart Attack?: Video ([place]oz[place]ican)documented in this encounter [facility] 02-05-2024 Note PROCEDURE: CTA THORA CIC AORTA CLINICAL INFORMATION: chest pain radiating to back, HTN COMPARISON; PROCEDURE: CTA THORACIC AORTA CLINICAL INFORMATION: chest pain radiating to back, HTN COMPARISON; 09/23/2022 TECHNIQUE: 1.5 mm axial images were obtained through the chest before and after the administration of IV contrast (ISOVUE). A non-contrast localizer was obtained. 3D reconstructions were performed on the scanner to include sagittal and coronal MIP images through the thoracic aorta.. ALL CT SCANS AT THIS FACILITY use dose modulation, iterative reconstruction, and/or weight-based dosing when appropriate to reduce radiation dose to as low as reasonably achievable. FINDINGS: Upper abdomen: Unremarkable. No gross abnormality is seen. Mediastinum and trish: No abnormally enlarged or suspicious appearing lymph nodes are seen.. Bones: No evidence for acute fracture or bone destruction.. Prior surgery left shoulder.. There is a 2.2 cm lesion in the subcutaneous tissues anterior to the lower sternum, consistent with a sebaceous cyst. Lungs: Moderate atelectatic/fibrotic stranding both lung bases. Similar finding seen on prior study. No acute infiltrates or effusions are seen. Vascular: 4.1 cm fusiform aneurysm of the ascending thoracic aorta. Prominent pulmonary trunk, consistent with pulmonary arterial hypertension. No evidence for dissection. [facility] 02-05-2024 Note PROCEDURE: CTA THORA CIC AORTA CLINICAL INFORMATION: chest pain radiating to back, HTN COMPARISON; PROCEDURE: CTA THORACIC AORTA CLINICAL INFORMATION: chest pain radiating to back, HTN COMPARISON; 09/23/2022 TECHNIQUE: 1.5 mm axial images were obtained through the chest before and after the administration of IV contrast (ISOVUE). A non-contrast localizer was obtained. 3D reconstructions were performed on the scanner to include sagittal and coronal MIP images through the thoracic aorta.. ALL CT SCANS AT THIS FACILITY use dose modulation, iterative reconstruction, and/or weight-based dosing when appropriate to reduce radiation dose to as low as reasonably achievable. FINDINGS: Upper abdomen: Unremarkable. No gross abnormality is seen. Mediastinum and trish: No abnormally enlarged or suspicious appearing lymph nodes are seen.. Bones: No evidence for acute fracture or bone destruction.. Prior surgery left shoulder.. There is a 2.2 cm lesion in the subcutaneous tissues anterior to the lower sternum, consistent with a sebaceous cyst. Lungs: Moderate atelectatic/fibrotic stranding both lung bases. Similar finding seen on prior study. No acute infiltrates or effusions are seen. Vascular: 4.1 cm fusiform aneurysm of the ascending thoracic aorta. Prominent pulmonary trunk, consistent with pulmonary arterial hypertension. No evidence for dissection. IMPRESSION: 1. Mild atelectatic subpleural stranding both lung bases. 2. Mildly aneurysmal ascending thoracic aorta. No dissection. 3. Findings of pulmonary arterial hypertension. This report has been created using voice recognition software. It may contain minor errors which are inherent in voice recognition technology. are inherent in voice recognition technology. Interpreted by: Omero Chávez MD Signed by: Omero Chávez MD 02/05/24 Final result [facility] 02-05-2024 Note PROCEDURE: XR CHEST (2 VW) CLINICAL INFORMATION: chest pain COMPARISON: 08/24/2023 TECHNIQUE: AP upright and lateral views of the chest were obtained. [facility] 02-05-2024 Note PROCEDURE: XR CHEST (2 VW) CLINICAL INFORMATION: chest pain COMPARISON: 08/24/2023 TECHNIQUE: AP upright and lateral views of the chest were obtained. IMPRESSION: 1. Lungs hyperinflated with flattening the diaphragms, consistent with COPD. 2. Mild cardiomegaly. Prior surgery left shoulder. Abnormal widening both AC joints. Partial calcification of the coracoclavicular ligament right side. 3. Mild atelectasis/pneumonia along both hemidiaphragms. No effusion. This report has been created using voice recognition software. It may contain minor errors which are inherent in voice recognition technology. Interpreted by: Omero Chávez MD Signed by: Omero Chávez MD 02/05/24 Final result [facility] 10-29-2023 History of Present illness Narrative Patient ID: Sana Stanley is a 68 y.o. male CC: [facility] Facility visit for Essential Hypertension, COPD, Parkinson's disease, Seizure Disorder, GERD, Essential Tremor, Mild Cognitive Impairment, Alcohol Use Disorder, Severe, In Sustained Remission, BPH, Schizoaffective Disorder, Bipolar Type, Diverticulosis, history of unsteady gait,Rolon's Palsy, resolved, history of influenza vaccination, pneumonia hypoxemia, all resolved,. Mass Of Right Shoulder, history ofCOVID-19 infection. HPI: Patient reports emotionally feeling well and grateful for the care he is receiving at this facility and for his health. Patient during interview and examination endorsed bradykinesia, shuffling gait, intention tremor. Has history of Parkinson's disease not had recent neurology consultation. Nursing staff reports no and patient deny any symptoms at rest or with modest exertion of uncontrolled hypertension, hypotension, decompensated COPD as noted,.symptoms or signs of decompensated Parkinson's disease,any recent or remote seizures or reported seizure, any warning symptoms of GERD or any recent or remote uncontrolled symptoms of GERD, new or unmanageable tremors, any new emotional decompensation. No new nursing concerns regarding this patient's health. 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 Simple chronic bronchitis Tonic-clonic seizure disorder Wernicke-Korsakoff syndrome (alcoholic) White matter disease Additional Medical History: Patient Active Problem List Diagnosis COPD, mild Gastroesophageal reflux disease without esophagitis Parkinson's disease Essential tremor Mild cognitive impairment Seizure disorder Benign prostatic hyperplasia without lower urinary tract symptoms Severe alcohol use disorder, in sustained remission Schizoaffective disorder, bipolar type Essential hypertension Unsteady gait Hypertensive heart disease without heart failure Cigarette nicotine dependence, uncomplicated Obesity (BMI 30.0-34.9) Cigarette nicotine dependence in remission Mass of joint of right shoulder Intractable chronic migraine without aura and without status migrainosus PSHx: Past Surgical History: Procedure Laterality Date COLONOSCOPY DIAGNOSTIC 02/2018 HEART CATHETERIZATION 01/14/2017 REPAIR SHOULDER ROTATOR CUFF Left 09/2016 LEG SURGERY Bilateral MEDICATIONS: Current Outpatient Medications Medication Sig Dispense Refill acetaminophen (Tylenol) 325 MG tablet Take 2 tablets by mouth every 4 hours as needed for Mild Pain. 60 tablet 5 albuterol 108 (90 Base) MCG/ACT Aero Soln inhaler Inhale 2 puffs 4 times daily. aspirin EC [address] Take 81 mg by mouth daily. atorvastatin 40 MG tablet Take 1 tablet by mouth daily. 90 tablet 1 busPIRone 10 MG tablet Take 1 tablet by mouth 3 times daily. carbidopa-levodopa 50-200 MG Tab CR Take 1 tablet by mouth 2 times daily. faMOTIdine 20 MG tablet Take 20 mg by mouth daily. finasteride 5 MG tablet Take 5 mg by mouth daily. hydrOXYzine pamoate 25 MG capsule Take 1 capsule by mouth Every night. lithium 300 MG capsule Take 300 mg by mouth 2 times daily with meals. LORazepam 0.5 MG tablet Take 1 tablet by mouth 2 times daily. LORazepam 1 MG tablet Take 1 tablet by mouth at bedtime. losartan 25 MG tablet Take 25 mg by mouth daily. OLANZapine 10 MG tablet Take 10 mg by mouth daily every morning. selegiline 5 MG capsule Take 5 mg by mouth 2 times daily. Tamsulosin HCl 0.4 MG capsule Take 0.4 mg by mouth daily. traZODone 50 MG tablet Take 1 tablet by mouth at bedtime. No current facility-administered medications for this visit. 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 ROS: Review of Systems Constitutional: Negative for weakness, appetite change, weight loss or weight change. Cardiovascular: Negative for chest pain, chest pressure, orthopnea or leg swelling. HEENT: Negative for sore throats, otalgia, sinus congestion or drainage. Respiratory: Denies dyspnea, pleuritic discomfort, cough, hemoptysis. Gastrointestinal: Negative for pyrosis, dysphagia, odynophagia, melena, hematochezia, constipation or diarrhea. Genitourinary:Negative for dysuria,frequency,urgency. Hematologic: Negative for epistaxis, ecchymoses. Lymphatic: Negative for lumps of the cervical, axillary, or inguinal regions Endocrinologic: Negative for polydipsia polyphagia polyuria Musculoskeletal: Negative for any new joint stiffness or swelling or pain. Neuro: Negative for dysesthesia, paresthesia, weakness, gait disturbance. Skin: Negative for rashes or new lesions. Psychiatric: Negative for any new depression or anxiety PHYSICAL EXAM: Vital signs: 207 lb down 6 lb for the past 4 months for which patient was acknowledged 129/82, 78, 18, unlabored Constitutional: Appearing well rested and well-kempt. Skin: Skin is warm. No rash noted. HEENT: Noninjected conjunctivae. Noninjected oropharynx. Neck: Carotid bruit is not present. No mass and no thyromegaly present. Lymphadenopathy: He has no cervical, supraclavicular, or axillary adenopathy. Cardiovascular: Pulse apically and peripherally regular, no murmur, no signs of failure. Hematologic: No epistaxis or ecchymoses. Abdominal: Moderately to severely obese without tenderness. Pulmonary/Chest: Clear lung ridley, no conversational dyspnea. Musculoskeletal: Mild OA findings diffusely. Neurological: Alert, followed commands, cautious gait. Psychiatric: Calm and pleasant mood with appropriate affect. LABS, DIAGNOSTICS: June 12 labs results once again reviewed and discussed with patient. Labs from May 25 and previous labs once again reviewed. Tertiary facility ER database from February 19 reviewed. October 14 and September 22 lab work once again reviewed. September 18 hospitalization database reviewed and discussed with patient. Emergency department visit and lab results from October 31 min again reviewed. October 04, 2020 labs-once again reviewed. ASSESSMENT: 1. Hypertensive heart disease without heart failure 2. Cigarette nicotine dependence in remission 3. Gastroesophageal reflux disease without esophagitis 4. COPD, mild 5. Parkinson's disease without dyskinesia or fluctuating manifestations 6. Seizure disorder 7. Severe alcohol use disorder, in sustained remission 8. Mild cognitive impairment PLAN: Chart reviewed. Conditions and management reviewed with patient. Reviewed with patient his most recent lab results. Recommended updated Neurology consultation, patient receptive. Beta-екатерина therapy helpful and tolerated for headache management. Maintaining: Beta-екатерина for headache management and hypertension management. Angiotensin receptor екатерина therapy for hypertension management. As needed albuterol inhaler for COPD management. Anti Parkinson's medications for Parkinson's management. Alpha-екатерина for BPH management. H2 receptor екатерина therapy for GERD management. Anti-platelet therapy for CAD, CVD prophylaxis given this patient's chronic tobacco use and hypertension. Mental health medications as per consulting psychiatrist. Encouraged consistency with: Responsible hydration, nutrition, rest for maintenance of his physical and emotional health. self management of mental health conditions. Cautious, achievable, wellness routine for the maintenance of his physical and emotional health. Adherence with fall prevention measures discussed- cane or walker, preferably walker,. mental health follow-up visits (on-site facilitated by nursing staff) and psychiatric medication regimen the maintenance of his emotional health. Influenza, pneumococcal, recombinant zoster vaccinations. Tolerated most current SARS-CoV-2 vaccination, including booster. 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 Follow-up with Neurology for Parkinson's management. Becoming current with dental and ocular care visits as clinically indicated. Walking routine for VTE prophylaxis. Acknowledged once again for being tobacco free, since his brother's a year ago. Full Code Status. documented in this encounter [employer] Phone: 10-29-2023 Miscellaneous Notes Addended by: MIGUEL KESSLER on: 10/29/2023 08:52 PM Modules accepted: Orders documented in this encounter [employer] Phone: 10-29-2023 Note Addended by: MIGUEL DEVLIN on: 10/29/2023 08:52 PM Modules accepted: Orders [employer] Phone: 08-24-2023 Note PROCEDURE: XR CHEST (2 VW) CLINICAL INFORMATION: cough. COMPARISON: Chest x-ray dated 11 June 2023.. TECHNIQUE: PA and lateral views the chest. FINDINGS: There is mild cardiomegaly.. The mediastinum is not widened. There is diffuse COPD and slight thickening of the interstitial lung markings. There are no new pulmonary infiltrates or effusions. The pulmonary vascularity is normal. There is thoracic spondylosis. There are postoperative changes involving the left humeral head. IMPRESSION: 1. No interval change since previous study dated 11 June 2023. This report has been created using voice recognition software. It may contain minor errors which are inherent in voice recognition technology. Final report electronically signed by DR CHAPARRITA CAMP on 08/24/2023 10:06 AM Interpreted by: Chaparrita Camp MD Shah, Manjul, MD Signed by: Chaparrita Camp MD 08/24/23 Edited Result - FINAL [facility] 07-02-2023 History of Present illness Narrative Patient ID: Sana Stanley is a 68 y.o. male CC: [facility] visit for COVID-19 infection, resolving, Essential Hypertension, COPD, Parkinson's disease, Seizure Disorder, GERD, Essential Tremor, Mild Cognitive Impairment, Alcohol Use Disorder, Severe, In Sustained Remission, BPH, Schizoaffective Disorder, Bipolar Type, Diverticulosis, history of unsteady gait,Rolon's Palsy, resolved, history of influenza vaccination, pneumonia hypoxemia, all resolved,. Mass Of Right Shoulder, HPI: Patient reports gradually improving his stamina status post recent COVID-19 infection, manifesting as upper respiratory symptoms. Denies any wheezing or pleuritic discomfort. Reports appetite has been good. Is a nontobacco user which she was acknowledged. Of note, patient was recently (June 24) discharged from geriatric psych facility and likely picked up the infection from the facility the nurse leasing property manager/director is reporting. Patient reports no and patient deny any symptoms at rest or with modest exertion of uncontrolled hypertension, hypotension, decompensated COPD as noted,.symptoms or signs of decompensated Parkinson's disease,any recent or remote seizures or reported seizure, any warning symptoms of GERD or any recent or remote uncontrolled symptoms of GERD, new or unmanageable tremors, any new emotional decompensation. No new nursing concerns regarding this patient's health. 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 Simple chronic bronchitis Tonic-clonic seizure disorder Wernicke-Korsakoff syndrome (alcoholic) White matter disease Additional Medical History: Patient Active Problem List Diagnosis COPD, mild Gastroesophageal reflux disease without esophagitis Parkinson's disease Essential tremor Mild cognitive impairment Seizure disorder Benign prostatic hyperplasia without lower urinary tract symptoms Severe alcohol use disorder, in sustained remission Schizoaffective disorder, bipolar type Essential hypertension Unsteady gait Hypertensive heart disease without heart failure Cigarette nicotine dependence, uncomplicated Obesity (BMI 30.0-34.9) Cigarette nicotine dependence in remission Mass of joint of right shoulder Intractable chronic migraine without aura and without status migrainosus PSHx: Past Surgical History: Procedure Laterality Date COLONOSCOPY DIAGNOSTIC 02/2018 HEART CATHETERIZATION 01/14/2017 REPAIR SHOULDER ROTATOR CUFF Left 09/2016 LEG SURGERY Bilateral MEDICATIONS: Current Outpatient Medications Medication Sig Dispense Refill acetaminophen (Tylenol) 325 MG tablet Take 2 tablets by mouth every 4 hours as needed for Mild Pain. 60 tablet 5 albuterol 108 (90 Base) MCG/ACT Aero Soln inhaler Inhale 2 puffs 4 times daily. aspirin EC [address] Take 81 mg by mouth daily. atorvastatin 40 MG tablet Take 1 tablet by mouth daily. 90 tablet 1 busPIRone 10 MG tablet Take 1 tablet by mouth 3 times daily. carbidopa-levodopa 50-200 MG Tab CR Take 1 tablet by mouth 2 times daily. faMOTIdine 20 MG tablet Take 20 mg by mouth daily. finasteride 5 MG tablet Take 5 mg by mouth daily. hydrOXYzine pamoate 25 MG capsule Take 1 capsule by mouth Every night. lithium 300 MG capsule Take 300 mg by mouth 2 times daily with meals. LORazepam 0.5 MG tablet Take 1 tablet by mouth 2 times daily. LORazepam 1 MG tablet Take 1 tablet by mouth at bedtime. losartan 25 MG tablet Take 25 mg by mouth daily. OLANZapine 10 MG tablet Take 10 mg by mouth daily every morning. selegiline 5 MG capsule Take 5 mg by mouth 2 times daily. Tamsulosin HCl 0.4 MG capsule Take 0.4 mg by mouth daily. traZODone 50 MG tablet Take 1 tablet by mouth at bedtime. No current facility-administered medications for this visit. 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 ROS: Review of Systems Constitutional: Negative for weakness, appetite change, weight loss or weight change. Cardiovascular: Negative for chest pain, chest pressure, orthopnea or leg swelling. HEENT: See HPI. Respiratory: Denies dyspnea, pleuritic discomfort, cough, hemoptysis. Gastrointestinal: Negative for pyrosis, dysphagia, odynophagia, melena, hematochezia, constipation or diarrhea. Genitourinary:Negative for dysuria,frequency,urgency. Hematologic: Negative for epistaxis, ecchymoses. Lymphatic: Negative for lumps of the cervical, axillary, or inguinal regions Endocrinologic: Negative for polydipsia polyphagia polyuria Musculoskeletal: Negative for any new joint stiffness or swelling or pain. Neuro: Negative for dysesthesia, paresthesia, weakness, gait disturbance. Skin: Negative for rashes or new lesions. Psychiatric: Negative for any new depression or anxiety PHYSICAL EXAM: Vital signs 213 lb, no change for the past 4 months, 138/72, 90, 18, unlabored % room air pulse ox Constitutional: Appearing well rested and well-kempt. Skin: Skin is warm. No rash noted. HEENT: Noninjected conjunctivae. Noninjected oropharynx. Neck: Carotid bruit is not present. No mass and no thyromegaly present. Lymphadenopathy: He has no cervical, supraclavicular, or axillary adenopathy. Cardiovascular: Pulse apically and peripherally regular, no murmur, no signs of failure. Hematologic: No epistaxis or ecchymoses. Abdominal: Moderately obese without tenderness. Pulmonary/Chest: Clear lung ridley, no conversational dyspnea. Musculoskeletal: Mild OA findings diffusely. Neurological: Alert, followed commands, cautious gait. Psychiatric: Calm and pleasant mood with appropriate affect. LABS, DIAGNOSTICS: June 12, labs results once again reviewed and discussed with patient. Labs from May 25 and previous labs once again reviewed. Tertiary facility ER database from February 19 reviewed. October 14 and September 22 lab work once again reviewed. September 18 hospitalization database reviewed and discussed with patient. Emergency department visit and lab results from October 31 min again reviewed. October 04, 2020 labs-once again reviewed. ASSESSMENT: 1. Hypertensive heart disease without heart failure 2. COVID-19 virus infection 3. COPD, mild 4. Seizure disorder 5. Parkinson's disease without dyskinesia or fluctuating manifestations 6. Cigarette nicotine dependence in remission 7. Gastroesophageal reflux disease without esophagitis 8. Severe alcohol use disorder, in sustained remission 9. Intractable chronic migraine without aura and without status migrainosus 10. Mild cognitive impairment PLAN: Chart reviewed. Conditions and management discussed with patient. Discussed with patient his most recent lab results. Beta-екатерина therapy effective and tolerated for headache management. Continuing: Beta-екатерина for headache management and hypertension management. Angiotensin receptor екатерина therapy for hypertension management. As needed albuterol inhaler for COPD management. Anti Parkinson's medications for Parkinson's management. Alpha-екатерина for BPH management. H2 receptor екатерина therapy for GERD management. Anti-platelet therapy for CAD, CVD prophylaxis given this patient's chronic tobacco use and hypertension. Mental health medications as per consulting psychiatrist. Encouraged consistency with: Responsible hydration, nutrition, rest for maintenance of his physical and emotional health. self management of mental health conditions. Cautious, achievable, wellness routine for the maintenance of his physical and emotional health. Adherence with fall prevention measures discussed- cane or walker, preferably walker,. mental health follow-up visits (on-site facilitated by nursing staff) and psychiatric medication regimen the maintenance of his emotional health. Influenza, pneumococcal, recombinant zoster vaccinations. Receptive to receiving most current SARS-CoV-2 vaccination, including booster. 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 Follow-up with Neurology for Parkinson's management. Becoming current with dental and ocular care visits as clinically indicated. Walking routine for VTE prophylaxis. Praised once again for being tobacco free, since his brother's a year ago. Full Code Status. documented in this encounter [employer] Phone: 06-12-2023 Emergency department Note [facility] arrives for pt. Original pink slipped sent with [facility]. ETA called to clear passage. [employer] Phone: 06-12-2023 Emergency department Note [facility] arrives for pt. Original pink slipped sent with [facility]. ETA called to clear passage. Emergency Department Report [facility] Service Date:.06/12/23 PCP: Miguel Kessler Chief Complaint: Chief Complaint Patient presents with Altered mental status HPI Sana Stanley is a 67 y.o. male presents to the ED today due to confusion agitation and aggression toward the nursing staff. 67-year-old male has history of high blood pressure chronic alcoholism and diabetes and Parkinson's disease and size of factor disorder and he was seen and evaluated at [facility] yesterday and was medically cleared and he was supposed to be admitted to the geriatric psych unit but he was [facility] and [facility]. As per the acute care certified nursing assistant, patient is getting more verbally aggressive toward the nurses , at times he is more confused and agitated and they have talked with the [facility] who had requested to provide a pink slipped for the patient and patient was sent to the ER for medical clearance and a pink slipped so that he can be placed in a geriatric psych unit. Review of Systems: Review of Systems Constitutional: Negative for activity change, appetite change, chills, diaphoresis, fatigue and fever. HENT: Negative for congestion, drooling, ear discharge, ear pain, facial swelling, hearing loss, sinus pressure, sinus pain, sore throat, trouble swallowing and voice change. Eyes: Negative for photophobia, pain, discharge, redness and visual disturbance. Respiratory: Negative for cough, shortness of breath and wheezing. Cardiovascular: Negative for chest pain, palpitations and leg swelling. Gastrointestinal: Negative for abdominal distention, abdominal pain, blood in stool, diarrhea, nausea and vomiting. Endocrine: Negative for cold intolerance, heat intolerance, polydipsia, polyphagia and polyuria. Genitourinary: Negative for difficulty urinating, dysuria, flank pain, frequency and urgency. Musculoskeletal: Negative for back pain, joint swelling, neck pain and neck stiffness. Skin: Negative for color change and rash. Allergic/Immunologic: Negative for environmental allergies, food allergies and immunocompromised state. Neurological: Negative for dizziness, seizures, syncope, facial asymmetry, speech difficulty, weakness, light-headedness, numbness and headaches. Hematological: Negative for adenopathy. Does not bruise/bleed easily. Psychiatric/Behavioral: Positive for agitation, behavioral problems and confusion. Negative for hallucinations and suicidal ideas. The patient is not nervous/anxious. Past Medical History: Past Medical History: Diagnosis Date Abnormal involuntary movement Alcoholism Asthma BPH (benign prostatic hyperplasia) Cirrhosis with alcoholism Diverticulosis Essential tremor Euthyroid sick syndrome HTN (hypertension) Internal hemorrhoid Mild cognitive impairment Parkinsons Schizoaffective disorder Seizure disorder Severe mixed bipolar 1 disorder without psychosis Simple chronic bronchitis Tonic-clonic seizure disorder Wernicke-Korsakoff syndrome (alcoholic) White matter disease Past Surgical History: Past Surgical History: Procedure Laterality Date COLONOSCOPY DIAGNOSTIC 02/2018 HEART CATHETERIZATION 01/14/2017 REPAIR SHOULDER ROTATOR CUFF Left 09/2016 LEG SURGERY Bilateral Allergies: No Known Allergies Medications: Patient's Medications New Prescriptions No medications on file Previous Medications ACETAMINOPHEN (TYLENOL) 325 MG TABLET Take 2 tablets by mouth every 4 hours as needed for Mild Pain. ALBUTEROL 108 (90 BASE) MCG/ACT AERO SOLN INHALER Inhale 2 puffs 4 times daily. ASPIRIN EC [address] Take 81 mg by mouth daily. ATORVASTATIN 40 MG TABLET Take 1 tablet by mouth daily. BUSPIRONE 10 MG TABLET Take 1 tablet by mouth 3 times daily. CARBIDOPA-LEVODOPA 50-200 MG TAB CR Take 1 tablet by mouth 2 times daily. FAMOTIDINE 20 MG TABLET Take 20 mg by mouth daily. FINASTERIDE 5 MG TABLET Take 5 mg by mouth daily. HYDROXYZINE PAMOATE 25 MG CAPSULE Take 1 capsule by mouth Every night. LITHIUM 300 MG CAPSULE Take 300 mg by mouth 2 times daily with meals. LORAZEPAM 0.5 MG TABLET Take 1 tablet by mouth 2 times daily. LORAZEPAM 1 MG TABLET Take 1 tablet by mouth at bedtime. LOSARTAN 25 MG TABLET Take 25 mg by mouth daily. OLANZAPINE 10 MG TABLET Take 10 mg by mouth daily every morning. SELEGILINE 5 MG CAPSULE Take 5 mg by mouth 2 times daily. TAMSULOSIN HCL 0.4 MG CAPSULE Take 0.4 mg by mouth daily. TRAZODONE 50 MG TABLET Take 1 tablet by mouth at bedtime. Modified Medications No medications on file Discontinued Medications No medications on file Family History: Family History Problem Relation Age of Onset Hypertension Mother Social History: Social History Socioeconomic History Marital status: Single Spouse name: Not on file Number of children: Not on file Years of education: Not on file Highest education level: Not on file Occupational History Not on file Tobacco Use Smoking status: Every Day Smokeless tobacco: Never Substance and Sexual Activity Alcohol use: Not on file Drug use: Not on file Sexual activity: Not on file Other Topics Concern Not on file Social History Narrative Not on file Social Determinants of Health Financial Resource Strain: Not on file Food Insecurity: Not on file Transportation Needs: Not on file Physical Activity: Not on file Stress: Not on file Social Connections: Not on file Intimate Partner Violence: Not on file Housing Stability: Not on file Physical Exam: Physical Exam Vitals and nursing note reviewed. Constitutional: General: He is not in acute distress. Appearance: Normal appearance. He is not toxic-appearing or diaphoretic. HENT: Head: Normocephalic and atraumatic. Right Ear: Tympanic membrane, ear canal and external ear normal. Left Ear: Tympanic membrane, ear canal and external ear normal. Nose: Nose normal. Mouth/Throat: Mouth: Mucous membranes are moist. Pharynx: Oropharynx is clear. No oropharyngeal exudate or posterior oropharyngeal erythema. Eyes: Extraocular Movements: Extraocular movements intact. Conjunctiva/sclera: Conjunctivae normal. Pupils: Pupils are equal, round, and reactive to light. Neck: Vascular: No carotid bruit. Cardiovascular: Rate and Rhythm: Normal rate and regular rhythm. Pulses: Normal pulses. Heart sounds: Normal heart sounds. No murmur heard. No friction rub. No gallop. Pulmonary: Effort: Pulmonary effort is normal. Breath sounds: Normal breath sounds. No wheezing or rales. Chest: Chest wall: No tenderness. Abdominal: General: Abdomen is flat. Bowel sounds are normal. There is no distension. Palpations: Abdomen is soft. There is no mass. Tenderness: There is no abdominal tenderness. There is no right CVA tenderness or left CVA tenderness. Hernia: No hernia is present. Musculoskeletal: General: No tenderness or deformity. Normal range of motion. Cervical back: Normal range of motion and neck supple. No rigidity. No muscular tenderness. Right lower leg: No edema. Left lower leg: No edema. Lymphadenopathy: Cervical: No cervical adenopathy. Skin: General: Skin is warm and dry. Capillary Refill: Capillary refill takes less than 2 seconds. Coloration: Skin is not pale. Findings: No bruising, lesion or rash. Neurological: General: No focal deficit present. Mental Status: He is alert and oriented to person, place, and time. Comments: Evaluation in the ER appears to be normal and patient is more calm and comfortable and is able to answer most of the questions Vital Signs During ED Visit Patient Vitals for the past 24 hrs: BP Temp Pulse Resp SpO2 Weight 06/12/23 1428 150/75 -- -- -- -- -- 06/12/23 1427 -- -- -- -- -- 99.1 kg (218 lb 8 oz) 06/12/23 1426 -- 99.2 F (37.3 C) 91 18 94 % -- Orders/Results: No orders of the defined types were placed in this encounter. Results for orders placed or performed during the hospital encounter of 02/26/23 CBC, EDIF, PLATELET Result Value Ref Range WBC (WHITE BLOOD COUNT) 8.8 4.8 - 10.8 thou/cumm RBC 4.71 4.70 - 6.10 mil/cumm HEMOGLOBIN (HGB) 14.6 14.0 - 18.0 g/dL HEMATOCRIT (HCT) 43.1 42.0 - 52.0 % MEAN CELL VOLUME 91.7 80.0 - 94.0 fL Mean Cell HGB 31.1 28.0 - 32.0 pg MEAN CELL HGB CONCENTRATION 33.9 33.0 - 37.0 g/dL RBC DISTRIBUTION 13.9 11.5 - 14.5 % PLATELET COUNT 199 130 - 400 thou/cumm NEUTROPHILS 64.6 39.4 - 72.5 % LYMPHOCYTE 27.0 17.6 - 49.6 % MONOCYTES: 6.7 4.1 - 12.4 % EOSINOPHIL % 1.1 0.0 - 4.0 % BASOPHIL % 0.6 0.0 - 3.0 % SCAN SLIDE NO NO COMPREHENSIVE METABOLIC PROFILE ER Result Value Ref Range SODIUM 140 136 - 145 mEq/L POTASSIUM 4.4 3.5 - 5.1 mEq/L CHLORIDE 104 98 - 107 mEq/L CARBON DIOXIDE (CO2) 33 (H) 22 - 31 mEq/L ANION GAP 7.4 (L) 10.0 - 20.0 mEq/L Glucose 119 70 - 126 mg/dL BUN 14 7 - 22 mg/dL CREATININE SERUM 0.9 0.4 - 1.1 mg/dL ESTIMATED GFR >=60 CALCIUM 9.0 8.4 - 10.2 mg/dL AST 19 10 - 42 U/L ALT 23 10 - 40 U/L ALKALINE PHOSPHATASE 90 38 - 126 U/L BILIRUBIN, TOTAL 0.4 0.3 - 1.2 mg/dL PROTEIN, TOTAL 7.3 6.4 - 8.3 g/dL Albumin 4.0 3.5 - 5.0 g/dL Globulin 3.3 2.9 - 3.3 g/dL A/G Ratio 1.2 1.2 - 1.5 TROPONIN Result Value Ref Range Troponin High Sensitivity 3.10 0.00 - 20.00 ng/L URINALYSIS WITH REFLEX CULTURE Specimen: Urine Result Value Ref Range COLOR, URINE YELLOW YELLOW APPEARANCE, URINE DIPSTICK CLEAR CLEAR GLUCOSE, URINE DIPSTICK NEGATIVE NEGATIVE mg/dL BILIRUBIN, URINE DIPSTICK NEGATIVE NEGATIVE KETONES, URINE DIPSTICK NEGATIVE NEGATIVE mg/dL SPECIFIC GRAVITY, URINE DIPSTICK 1.010 1.010 - 1.025 BLOOD, URINE DIPSTICK NEGATIVE NEGATIVE PH, URINE DIPSTICK 8.0 5.0 - 8.0 PROTEIN, URINE DIPSTICK NEGATIVE NEGATIVE mg/dL UROBILINOGEN, URINE DIPSTICK 1.0 0.2 - 1.0 E.U./dL NITRITES, URINE NEGATIVE NEGATIVE LEUKOCYTE ESTERASE, URINE DIPSTK NEGATIVE NEGATIVE Microscopic Examination NO NO Radiographic Imaging No orders to display Procedures: Procedures Moderate Sedation Procedure: No ED Summary/MDM [age] year male was [facility] for the symptoms of confusion agitation and aggression and getting verbally aggressive against the medical staff in the [facility] and patient has symptoms of acute psychosis and will require a admission to the geriatric psych unit and after full evaluation based on his lab work done yesterday, patient was medically cleared and he was pink slipped so that he can be admitted to a geriatric psych unit. Arrangements are being made to transfer the patient to psych unit for geriatrics psych transfer Clinical Impression: No diagnosis found. No follow-ups on file. New Prescriptions No medications on file Discontinued Medications No medications on file An After Visit Summary was printed and given to the patient with above information. . Matt Caldwell MD 06/12/23 1459 Matt Caldwell MD 06/12/23 1519 documented in this encounter [facility] [employer] [employer] Work Phone: 06-12-2023 Physician Emergency department Note Emergency Department Report [facility] Service Date:.06/12/23 PCP: Miguel Kessler Chief Complaint: Chief Complaint Patient presents with Altered mental status HPI Sana Stanley is a 67 y.o. male presents to the ED today due to confusion agitation and aggression toward the nursing staff. 67-year-old male has history of high blood pressure chronic alcoholism and diabetes and Parkinson's disease and size of factor disorder and he was seen and evaluated at [facility] yesterday and was medically cleared and he was supposed to be admitted to the geriatric psych unit but he was discharged and [facility] to the [facility]. As per the acute care certified nursing assistant, patient is getting more verbally aggressive toward the nurses , at times he is more confused and agitated and they have talked with the [facility] who had requested to provide a pink slipped for the patient and patient was sent to the ER for medical clearance and a pink slipped so that he can be placed in a geriatric psych unit. Review of Systems: Review of Systems Constitutional: Negative for activity change, appetite change, chills, diaphoresis, fatigue and fever. HENT: Negative for congestion, drooling, ear discharge, ear pain, facial swelling, hearing loss, sinus pressure, sinus pain, sore throat, trouble swallowing and voice change. Eyes: Negative for photophobia, pain, discharge, redness and visual disturbance. Respiratory: Negative for cough, shortness of breath and wheezing. Cardiovascular: Negative for chest pain, palpitations and leg swelling. Gastrointestinal: Negative for abdominal distention, abdominal pain, blood in stool, diarrhea, nausea and vomiting. Endocrine: Negative for cold intolerance, heat intolerance, polydipsia, polyphagia and polyuria. Genitourinary: Negative for difficulty urinating, dysuria, flank pain, frequency and urgency. Musculoskeletal: Negative for back pain, joint swelling, neck pain and neck stiffness. Skin: Negative for color change and rash. Allergic/Immunologic: Negative for environmental allergies, food allergies and immunocompromised state. Neurological: Negative for dizziness, seizures, syncope, facial asymmetry, speech difficulty, weakness, light-headedness, numbness and headaches. Hematological: Negative for adenopathy. Does not bruise/bleed easily. Psychiatric/Behavioral: Positive for agitation, behavioral problems and confusion. Negative for hallucinations and suicidal ideas. The patient is not nervous/anxious. Past Medical History: Past Medical History: Diagnosis Date Abnormal involuntary movement Alcoholism Asthma BPH (benign prostatic hyperplasia) Cirrhosis with alcoholism Diverticulosis Essential tremor Euthyroid sick syndrome HTN (hypertension) Internal hemorrhoid Mild cognitive impairment Parkinsons Schizoaffective disorder Seizure disorder Severe mixed bipolar 1 disorder without psychosis Simple chronic bronchitis Tonic-clonic seizure disorder Wernicke-Korsakoff syndrome (alcoholic) White matter disease Past Surgical History: Past Surgical History: Procedure Laterality Date COLONOSCOPY DIAGNOSTIC 02/2018 HEART CATHETERIZATION 01/14/2017 REPAIR SHOULDER ROTATOR CUFF Left 09/2016 LEG SURGERY Bilateral Allergies: No Known Allergies Medications: Patient's Medications New Prescriptions No medications on file Previous Medications ACETAMINOPHEN (TYLENOL) 325 MG TABLET Take 2 tablets by mouth every 4 hours as needed for Mild Pain. ALBUTEROL 108 (90 BASE) MCG/ACT AERO SOLN INHALER Inhale 2 puffs 4 times daily. ASPIRIN EC [address] Take 81 mg by mouth daily. ATORVASTATIN 40 MG TABLET Take 1 tablet by mouth daily. BUSPIRONE 10 MG TABLET Take 1 tablet by mouth 3 times daily. CARBIDOPA-LEVODOPA 50-200 MG TAB CR Take 1 tablet by mouth 2 times daily. FAMOTIDINE 20 MG TABLET Take 20 mg by mouth daily. FINASTERIDE 5 MG TABLET Take 5 mg by mouth daily. HYDROXYZINE PAMOATE 25 MG CAPSULE Take 1 capsule by mouth Every night. LITHIUM 300 MG CAPSULE Take 300 mg by mouth 2 times daily with meals. LORAZEPAM 0.5 MG TABLET Take 1 tablet by mouth 2 times daily. LORAZEPAM 1 MG TABLET Take 1 tablet by mouth at bedtime. LOSARTAN 25 MG TABLET Take 25 mg by mouth daily. OLANZAPINE 10 MG TABLET Take 10 mg by mouth daily every morning. SELEGILINE 5 MG CAPSULE Take 5 mg by mouth 2 times daily. TAMSULOSIN HCL 0.4 MG CAPSULE Take 0.4 mg by mouth daily. TRAZODONE 50 MG TABLET Take 1 tablet by mouth at bedtime. Modified Medications No medications on file Discontinued Medications No medications on file Family History: Family History Problem Relation Age of Onset Hypertension Mother Social History: Social History Socioeconomic History Marital status: Single Spouse name: Not on file Number of children: Not on file Years of education: Not on file Highest education level: Not on file Occupational History Not on file Tobacco Use Smoking status: Every Day Smokeless tobacco: Never Substance and Sexual Activity Alcohol use: Not on file Drug use: Not on file Sexual activity: Not on file Other Topics Concern Not on file Social History Narrative Not on file Social Determinants of Health Financial Resource Strain: Not on file Food Insecurity: Not on file Transportation Needs: Not on file Physical Activity: Not on file Stress: Not on file Social Connections: Not on file Intimate Partner Violence: Not on file Housing Stability: Not on file Physical Exam: Physical Exam Vitals and nursing note reviewed. Constitutional: General: He is not in acute distress. Appearance: Normal appearance. He is not toxic-appearing or diaphoretic. HENT: Head: Normocephalic and atraumatic. Right Ear: Tympanic membrane, ear canal and external ear normal. Left Ear: Tympanic membrane, ear canal and external ear normal. Nose: Nose normal. Mouth/Throat: Mouth: Mucous membranes are moist. Pharynx: Oropharynx is clear. No oropharyngeal exudate or posterior oropharyngeal erythema. Eyes: Extraocular Movements: Extraocular movements intact. Conjunctiva/sclera: Conjunctivae normal. Pupils: Pupils are equal, round, and reactive to light. Neck: Vascular: No carotid bruit. Cardiovascular: Rate and Rhythm: Normal rate and regular rhythm. Pulses: Normal pulses. Heart sounds: Normal heart sounds. No murmur heard. No friction rub. No gallop. Pulmonary: Effort: Pulmonary effort is normal. Breath sounds: Normal breath sounds. No wheezing or rales. Chest: Chest wall: No tenderness. Abdominal: General: Abdomen is flat. Bowel sounds are normal. There is no distension. Palpations: Abdomen is soft. There is no mass. Tenderness: There is no abdominal tenderness. There is no right CVA tenderness or left CVA tenderness. Hernia: No hernia is present. Musculoskeletal: General: No tenderness or deformity. Normal range of motion. Cervical back: Normal range of motion and neck supple. No rigidity. No muscular tenderness. Right lower leg: No edema. Left lower leg: No edema. Lymphadenopathy: Cervical: No cervical adenopathy. Skin: General: Skin is warm and dry. Capillary Refill: Capillary refill takes less than 2 seconds. Coloration: Skin is not pale. Findings: No bruising, lesion or rash. Neurological: General: No focal deficit present. Mental Status: He is alert and oriented to person, place, and time. Comments: Evaluation in the ER appears to be normal and patient is more calm and comfortable and is able to answer most of the questions Vital Signs During ED Visit Patient Vitals for the past 24 hrs: BP Temp Pulse Resp SpO2 Weight 06/12/23 1428 150/75 -- -- -- -- -- 06/12/23 1427 -- -- -- -- -- 99.1 kg (218 lb 8 oz) 06/12/23 1426 -- 99.2 F (37.3 C) 91 18 94 % -- Orders/Results: No orders of the defined types were placed in this encounter. Results for orders placed or performed during the hospital encounter of 02/26/23 CBC, EDIF, PLATELET Result Value Ref Range WBC (WHITE BLOOD COUNT) 8.8 4.8 - 10.8 thou/cumm RBC 4.71 4.70 - 6.10 mil/cumm HEMOGLOBIN (HGB) 14.6 14.0 - 18.0 g/dL HEMATOCRIT (HCT) 43.1 42.0 - 52.0 % MEAN CELL VOLUME 91.7 80.0 - 94.0 fL Mean Cell HGB 31.1 28.0 - 32.0 pg MEAN CELL HGB CONCENTRATION 33.9 33.0 - 37.0 g/dL RBC DISTRIBUTION 13.9 11.5 - 14.5 % PLATELET COUNT 199 130 - 400 thou/cumm NEUTROPHILS 64.6 39.4 - 72.5 % LYMPHOCYTE 27.0 17.6 - 49.6 % MONOCYTES: 6.7 4.1 - 12.4 % EOSINOPHIL % 1.1 0.0 - 4.0 % BASOPHIL % 0.6 0.0 - 3.0 % SCAN SLIDE NO NO COMPREHENSIVE METABOLIC PROFILE ER Result Value Ref Range SODIUM 140 136 - 145 mEq/L POTASSIUM 4.4 3.5 - 5.1 mEq/L CHLORIDE 104 98 - 107 mEq/L CARBON DIOXIDE (CO2) 33 (H) 22 - 31 mEq/L ANION GAP 7.4 (L) 10.0 - 20.0 mEq/L Glucose 119 70 - 126 mg/dL BUN 14 7 - 22 mg/dL CREATININE SERUM 0.9 0.4 - 1.1 mg/dL ESTIMATED GFR >=60 CALCIUM 9.0 8.4 - 10.2 mg/dL AST 19 10 - 42 U/L ALT 23 10 - 40 U/L ALKALINE PHOSPHATASE 90 38 - 126 U/L BILIRUBIN, TOTAL 0.4 0.3 - 1.2 mg/dL PROTEIN, TOTAL 7.3 6.4 - 8.3 g/dL Albumin 4.0 3.5 - 5.0 g/dL Globulin 3.3 2.9 - 3.3 g/dL A/G Ratio 1.2 1.2 - 1.5 TROPONIN Result Value Ref Range Troponin High Sensitivity 3.10 0.00 - 20.00 ng/L URINALYSIS WITH REFLEX CULTURE Specimen: Urine Result Value Ref Range COLOR, URINE YELLOW YELLOW APPEARANCE, URINE DIPSTICK CLEAR CLEAR GLUCOSE, URINE DIPSTICK NEGATIVE NEGATIVE mg/dL BILIRUBIN, URINE DIPSTICK NEGATIVE NEGATIVE KETONES, URINE DIPSTICK NEGATIVE NEGATIVE mg/dL SPECIFIC GRAVITY, URINE DIPSTICK 1.010 1.010 - 1.025 BLOOD, URINE DIPSTICK NEGATIVE NEGATIVE PH, URINE DIPSTICK 8.0 5.0 - 8.0 PROTEIN, URINE DIPSTICK NEGATIVE NEGATIVE mg/dL UROBILINOGEN, URINE DIPSTICK 1.0 0.2 - 1.0 E.U./dL NITRITES, URINE NEGATIVE NEGATIVE LEUKOCYTE ESTERASE, URINE DIPSTK NEGATIVE NEGATIVE Microscopic Examination NO NO Radiographic Imaging No orders to display Procedures: Procedures Moderate Sedation Procedure: No ED Summary/MDM [age] year male was transferred [facility] for the symptoms of confusion agitation and aggression and getting verbally aggressive against the medical staff in the [facility] and patient has symptoms of acute psychosis and will require a admission to the geriatric psych unit and after full evaluation based on his lab work done yesterday, patient was medically cleared and he was pink slipped so that he can be admitted to a geriatric psych unit. Arrangements are being made to transfer the patient to psych unit for geriatrics psych transfer Clinical Impression: No diagnosis found. No follow-ups on file. New Prescriptions No medications on file Discontinued Medications No medications on file An After Visit Summary was printed and given to the patient with above information. . Matt Caldwell MD 06/12/23 1451 Matt Caldwell MD 06/12/23 1517 [facility] Phone: 06-11-2023 Hospital Discharge instructions Vahe Ribeiro MD - 06/11/2023 3:09 PM EDT Come back to the emergency department if severe chest pain, severe shortness of breath, persistence of fever, intractable vomiting, severe dizziness or lightheadedness, fainting. Schedule an appointment with your primary care physician as recommended previously. Read the documents attached. The following attachments cannot be sent through Care Everywhere.Parkinson's Disease ([place])documented in this encounter [facility] 06-11-2023 Note PROCEDURE: XR CHEST (2 VW) CLINICAL INFORMATION: cough COMPARISON: Chest radiograph 09/18/2022 TECHNIQUE: AP upright and lateral views of the chest performed. FINDINGS: No focal pulmonary consolidation. Cardiac silhouette is mildly enlarged. No pleural effusion. No pneumothorax. No acute bony abnormality. Age indeterminate compression deformities seen at T11, T12, and L1. The bones are demineralized. Degenerative changes of the thoracic spine. [facility] 06-11-2023 Note PROCEDURE: XR CHEST (2 VW) CLINICAL INFORMATION: cough COMPARISON: Chest radiograph 09/18/2022 TECHNIQUE: AP upright and lateral views of the chest performed. FINDINGS: No focal pulmonary consolidation. Cardiac silhouette is mildly enlarged. No pleural effusion. No pneumothorax. No acute bony abnormality. Age indeterminate compression deformities seen at T11, T12, and L1. The bones are demineralized. Degenerative changes of the thoracic spine. IMPRESSION: 1. No acute cardiopulmonary finding. 2. Age indeterminate compression fractures seen at T11, T12, and L1. 3. Mild cardiomegaly. This report has been created using voice recognition software. It may contain minor errors which are inherent in voice recognition technology. Final report electronically signed by Dr Milla Dinh on 06/11/2023 12:28 PM Interpreted by: Milla Dinh MD Signed by: Milla Dinh MD 06/11/23 Final result [facility] 05-28-2023 History of Present illness Narrative Patient ID: Sana Stanley is a 67 y.o. male CC: [facility] visit for Headaches, Presently Controlled Beta-Екатерина Therapy, Mass Of Right Shoulder, Essential Hypertension, COPD, Parkinson's disease, Seizure Disorder, GERD, Essential Tremor, Mild Cognitive Impairment, Alcohol Use Disorder, Severe, In Sustained Remission, BPH, Schizoaffective Disorder, Bipolar Type, Diverticulosis, history of unsteady gait,Rolon's Palsy, resolved, history of influenza vaccination, pneumonia hypoxemia, all resolved. HPI: Patient reports feeling well emotionally and physically. Reports medication adherence, facilitated by nursing staff, without reports of nursing intolerances Nursing staff reports no and patient deny any symptoms at rest or with modest exertion of uncontrolled hypertension, hypotension, decompensated COPD as noted,.symptoms or signs of decompensated Parkinson's disease,any recent or remote seizures or reported seizure, any warning symptoms of GERD or any recent or remote uncontrolled symptoms of GERD, new or unmanageable tremors, any new emotional decompensation. No new nursing concerns regarding this patient's health. Remains tobacco free per his report today. 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 Simple chronic bronchitis Tonic-clonic seizure disorder Wernicke-Korsakoff syndrome (alcoholic) White matter disease Additional Medical History: Patient Active Problem List Diagnosis COPD, mild Gastroesophageal reflux disease without esophagitis Parkinson's disease Essential tremor Mild cognitive impairment Seizure disorder Benign prostatic hyperplasia without lower urinary tract symptoms Severe alcohol use disorder, in sustained remission Schizoaffective disorder, bipolar type Essential hypertension Unsteady gait Hypertensive heart disease without heart failure Cigarette nicotine dependence, uncomplicated Obesity (BMI 30.0-34.9) Cigarette nicotine dependence in remission Mass of joint of right shoulder Intractable chronic migraine without aura and without status migrainosus PSHx: Past Surgical History: Procedure Laterality Date COLONOSCOPY DIAGNOSTIC 02/2018 HEART CATHETERIZATION 01/14/2017 REPAIR SHOULDER ROTATOR CUFF Left 09/2016 LEG SURGERY Bilateral MEDICATIONS: Current Outpatient Medications Medication Sig Dispense Refill acetaminophen (Tylenol) 325 MG tablet Take 2 tablets by mouth every 4 hours as needed for Mild Pain. 60 tablet 5 albuterol 108 (90 Base) MCG/ACT Aero Soln inhaler Inhale 2 puffs 4 times daily. aspirin EC [address] Take 81 mg by mouth daily. atorvastatin 40 MG tablet Take 1 tablet by mouth daily. 90 tablet 1 busPIRone 10 MG tablet Take 1 tablet by mouth 3 times daily. carbidopa-levodopa 50-200 MG Tab CR Take 1 tablet by mouth 2 times daily. faMOTIdine 20 MG tablet Take 20 mg by mouth daily. finasteride 5 MG tablet Take 5 mg by mouth daily. hydrOXYzine pamoate 25 MG capsule Take 1 capsule by mouth Every night. lithium 300 MG capsule Take 300 mg by mouth 2 times daily with meals. LORazepam 0.5 MG tablet Take 1 tablet by mouth 2 times daily. LORazepam 1 MG tablet Take 1 tablet by mouth at bedtime. losartan 25 MG tablet Take 25 mg by mouth daily. OLANZapine 10 MG tablet Take 10 mg by mouth daily every morning. selegiline 5 MG capsule Take 5 mg by mouth 2 times daily. Tamsulosin HCl 0.4 MG capsule Take 0.4 mg by mouth daily. traZODone 50 MG tablet Take 1 tablet by mouth at bedtime. No current facility-administered medications for this visit. 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 ROS: Review of Systems Constitutional: Negative for weakness, appetite change, weight loss or weight change. Cardiovascular: Negative for chest pain, chest pressure, orthopnea or leg swelling. HEENT: Denies postnasal drainage, sore throats, difficulty with hearing or vision Respiratory: Denies dyspnea, pleuritic discomfort, cough, hemoptysis. Gastrointestinal: Negative for pyrosis, dysphagia, odynophagia, melena, hematochezia, constipation or diarrhea. Genitourinary:Negative for dysuria,frequency,urgency. Hematologic: Negative for epistaxis, ecchymoses. Lymphatic: Negative for lumps of the cervical, axillary, or inguinal regions Endocrinologic: Negative for polydipsia polyphagia polyuria Musculoskeletal: Negative for any new joint stiffness or swelling or pain. Neuro: Negative for dysesthesia, paresthesia, weakness, gait disturbance. Skin: Negative for rashes or new lesions. Psychiatric: Negative for any new depression or anxiety PHYSICAL EXAM: Vital signs 213 lb, down 2 lb for the past 4 months, 98.4 , 148/80, 78, 98% room air pulse ox Constitutional: Appearing well rested and well-kempt. Skin: Skin is warm. No rash noted. HEENT: Noninjected conjunctivae. Neck: Carotid bruit is not present. No mass and no thyromegaly present. Lymphadenopathy: He has no cervical, supraclavicular, or axillary adenopathy. Cardiovascular: Pulse apically and peripherally regular, no murmur, no signs of failure. Hematologic: No epistaxis or ecchymoses. Abdominal: Moderately obese without tenderness. Pulmonary/Chest: Clear lung ridley, no conversational dyspnea. Musculoskeletal: Mild OA findings diffusely. Neurological: Alert, followed commands, cautious gait. Psychiatric: Calm and pleasant mood with appropriate affect. LABS, DIAGNOSTICS: Labs from May 25 and previous labs once again reviewed. Tertiary facility ER database from February 19 reviewed. October 14 and September 22 lab work once again reviewed. September 18 hospitalization database reviewed and discussed with patient. Emergency department visit and lab results from October 31 min again reviewed. October 04, 2020 labs-once again reviewed. ASSESSMENT: 1. Hypertensive heart disease without heart failure 2. COPD, mild 3. Seizure disorder 4. Parkinson's disease 5. Cigarette nicotine dependence in remission 6. Gastroesophageal reflux disease without esophagitis 7. Severe alcohol use disorder, in sustained remission PLAN: Chart reviewed. Conditions and management discussed with patient. Discussed with patient his lab results. Beta-екатерина therapy remains helpful and tolerated for headache management. Imaging of right shoulder and orthopedic consultation, rationale explained to patient.. Continuing: Beta-екатерина for headache management and hypertension management. Angiotensin receptor екатерина therapy for hypertension management. As needed albuterol inhaler for COPD management. Anti Parkinson's medications for Parkinson's management. Alpha-екатерина for BPH management. H2 receptor екатерина therapy for GERD management. Anti-platelet therapy for CAD, CVD prophylaxis given this patient's chronic tobacco use and hypertension. Mental health medications as per consulting psychiatrist. Encouraged consistency with: Responsible hydration, nutrition, rest for maintenance of his physical and emotional health. self management of mental health conditions. Cautious, achievable, wellness routine for the maintenance of his physical and emotional health. Adherence with fall prevention measures discussed- cane or walker, preferably walker,. mental health follow-up visits (on-site facilitated by nursing staff) and psychiatric medication regimen the maintenance of his emotional health. Influenza, pneumococcal, recombinant zoster vaccinations. Receptive to receiving most current SARS-CoV-2 vaccination, including booster. 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 Follow-up with Neurology for Parkinson's management. Becoming current with dental and ocular care visits as clinically indicated. Walking routine for VTE prophylaxis. Praised once again for being tobacco free, since his brother's a year ago. Full Code Status. documented in this encounter [facility] Phone: 04-02-2023 History of Present illness Narrative Patient ID: Sana Stanley is a 67 y.o. male CC: [facility] visit for Headaches, Presently Controlled Beta-Екатерина Therapy, Mass Of Right Shoulder, Essential Hypertension, COPD, Parkinson's disease, Seizure Disorder, GERD, Essential Tremor, Mild Cognitive Impairment, Alcohol Use Disorder, Severe, In Sustained Remission, BPH, Schizoaffective Disorder, Bipolar Type, Diverticulosis, history of unsteady gait,Rolon's Palsy, resolved, history of influenza vaccination, pneumonia hypoxemia, all resolved. HPI: Patient reports headaches under control and patient has had no further episodes of lethargy and dizziness since initiating and maintaining beta-екатерина therapy. Patient grateful for his being more alert and being headache free. Patient noticed a lump on her right shoulder. Pointed to the right posterior superior aspect of the shoulder joint. Denies associated discomfort. Denies any trauma to the area. Denies any heavy lifting. 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 Denies any weakness of the arm, right and denies any cervicalgia. Patient reports no and denies any symptoms at rest or with modest exertion of uncontrolled hypertension, hypotension, decompensated COPD as noted,.symptoms or signs of decompensated Parkinson's disease,any recent or remote seizures or reported seizure, any warning symptoms of GERD or any recent or remote uncontrolled symptoms of GERD, new or unmanageable tremors, any new emotional decompensation. No other new nursing concerns regarding this patient's health. Acknowledged for remaining tobacco free apparent 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 Simple chronic bronchitis Tonic-clonic seizure disorder Wernicke-Korsakoff syndrome (alcoholic) White matter disease Additional Medical History: Patient Active Problem List Diagnosis COPD, mild Gastroesophageal reflux disease without esophagitis Parkinson's disease Essential tremor Mild cognitive impairment Seizure disorder Benign prostatic hyperplasia without lower urinary tract symptoms Severe alcohol use disorder, in sustained remission Schizoaffective disorder, bipolar type Essential hypertension Unsteady gait Hypertensive heart disease without heart failure Cigarette nicotine dependence, uncomplicated Obesity (BMI 30.0-34.9) Cigarette nicotine dependence in remission Mass of joint of right shoulder Intractable chronic migraine without aura and without status migrainosus PSHx: Past Surgical History: Procedure Laterality Date COLONOSCOPY DIAGNOSTIC 02/2018 HEART CATHETERIZATION 01/14/2017 REPAIR SHOULDER ROTATOR CUFF Left 09/2016 LEG SURGERY Bilateral MEDICATIONS: Current Outpatient Medications Medication Sig Dispense Refill acetaminophen (Tylenol) 325 MG tablet Take 2 tablets by mouth every 4 hours as needed for Mild Pain. 60 tablet 5 albuterol 108 (90 Base) MCG/ACT Aero Soln inhaler Inhale 2 puffs 4 times daily. aspirin EC [address] Take 81 mg by mouth daily. atorvastatin 40 MG tablet Take 1 tablet by mouth daily. 90 tablet 1 busPIRone 10 MG tablet Take 1 tablet by mouth 3 times daily. carbidopa-levodopa 50-200 MG Tab CR Take 1 tablet by mouth 2 times daily. faMOTIdine 20 MG tablet Take 20 mg by mouth daily. finasteride 5 MG tablet Take 5 mg by mouth daily. hydrOXYzine pamoate 25 MG capsule Take 1 capsule by mouth Every night. lithium 300 MG capsule Take 300 mg by mouth 2 times daily with meals. LORazepam 0.5 MG tablet Take 1 tablet by mouth 2 times daily. LORazepam 1 MG tablet Take 1 tablet by mouth at bedtime. losartan 25 MG tablet Take 25 mg by mouth daily. OLANZapine 10 MG tablet Take 10 mg by mouth daily every morning. selegiline 5 MG capsule Take 5 mg by mouth 2 times daily. Tamsulosin HCl 0.4 MG capsule Take 0.4 mg by mouth daily. traZODone 50 MG tablet Take 1 tablet by mouth at bedtime. No current facility-administered medications for this visit. 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 ROS: Review of Systems Constitutional: Negative for weakness, appetite change, weight loss or weight change. Cardiovascular: Negative for chest pain, chest pressure, orthopnea or leg swelling. HEENT: Denies postnasal drainage, sore throats, difficulty with hearing or vision Respiratory: Denies dyspnea, pleuritic discomfort, cough, hemoptysis. Gastrointestinal: Negative for pyrosis, dysphagia, odynophagia, melena, hematochezia, constipation or diarrhea. Genitourinary:Negative for dysuria,frequency,urgency. Hematologic: Negative for epistaxis, ecchymoses. Lymphatic: Negative for lumps of the cervical, axillary, or inguinal regions Endocrinologic: Negative for polydipsia polyphagia polyuria Musculoskeletal: See HPI. Neuro: See HPI. Skin: Negative for rashes or new lesions. Psychiatric: Negative for any new depression or anxiety PHYSICAL EXAM: Vital signs 215 lb, no change for the past 2-3 months, 132/74, 72, 16 Constitutional: In no distress. Appearing well kempt and well rested. Skin: Skin is warm. No rash noted. HEENT: Noninjected conjunctivae. Neck: Carotid bruit is not present. No mass and no thyromegaly present. Lymphadenopathy: He has no cervical, supraclavicular, or axillary adenopathy. Cardiovascular: Pulse apically and peripherally regular, no murmur, no signs of failure. Hematologic: No epistaxis or ecchymoses. Abdominal: Moderately obese without tenderness. Pulmonary/Chest: Clear lung ridley, no conversational dyspnea. Musculoskeletal: Prominent ping-pong ball size mass of the right posterior superior aspect of right shoulder noted. Some associated crepitus. Nontender. Firm mass. Oa findings upper and lower extremities. Nonantalgic gait. Neurological: Alert, followed commands, cautious gait. Psychiatric: Calm and pleasant mood with appropriate affect. LABS, DIAGNOSTICS: Most recent labs and diagnostic data reviewed. Tertiary facility ER database from February 19 reviewed. October 14 and September 22 lab work once again reviewed. September 18 hospitalization database reviewed and discussed with patient. Emergency department visit and lab results from October 31 min again reviewed. October 04, 2020 labs-once again reviewed. ASSESSMENT: 1. Intractable chronic migraine without aura and without status migrainosus 2. Mass of joint of right shoulder 3. Hypertensive heart disease without heart failure 4. COPD, mild 5. Cigarette nicotine dependence in remission 6. Seizure disorder 7. Gastroesophageal reflux disease without esophagitis 8. Parkinson's disease 9. Physical debility 10. Severe alcohol use disorder, in sustained remission PLAN: Chart reviewed. Conditions and management discussed with patient. Beta-екатерина therapy effective and tolerated for headache management. Imaging of right shoulder and orthopedic consultation, rationale explained to patient.. Continuing: Angiotensin receptor екатерина therapy for hypertension management. As needed albuterol inhaler for COPD management. Anti Parkinson's medications for Parkinson's management. Alpha-екатерина for BPH management. H2 receptor екатерина therapy for GERD management. Anti-platelet therapy for CAD, CVD prophylaxis given this patient's chronic tobacco use and hypertension. Mental health medications as per consulting psychiatrist. Encouraged consistency with: Responsible hydration, nutrition, rest for maintenance of his physical and emotional health. self management of mental health conditions. Cautious, achievable, wellness routine for the maintenance of his physical and emotional health. Adherence with fall prevention measures discussed- cane or walker, preferably walker,. mental health follow-up visits (on-site facilitated by nursing staff) and psychiatric medication regimen the maintenance of his emotional health. Influenza, pneumococcal, recombinant zoster vaccinations. As noted, current with the SARS-CoV-2 vaccination, including booster. 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 Follow-up with Neurology for Parkinson's management. Becoming current with dental and ocular care visits as clinically indicated. Walking routine for VTE prophylaxis. Full Code Status. documented in this encounter [facility] Phone: 04-02-2023 Miscellaneous Notes Addended by: MIGUEL KESSLER on: 04/02/2023 08:47 PM Modules accepted: Orders documented in this encounter [facility] Phone: 04-02-2023 Note Addended by: MIGUEL DEVLIN on: 04/02/2023 08:47 PM Modules accepted: Orders [facility] Phone: 02-26-2023 History of Present illness Narrative Patient ID: Sana Stanley is a 67 y.o. male CC: [facility] visit for Episodic Dizziness, Most Currently Today, Accompanied By Lethargy, Essential Hypertension, COPD, Parkinson's disease, Seizure Disorder, GERD, Essential Tremor, Mild Cognitive Impairment, Alcohol Use Disorder, Severe, In Sustained Remission, BPH, Schizoaffective Disorder, Bipolar Type, Diverticulosis, history of unsteady gait,Rolon's Palsy, resolved, history of influenza vaccination, pneumonia hypoxemia, all resolved. HPI: Nursing reports patient has had episodes of dizziness prompting two separate trips to the ER. He was having an episode as he was anticipating the visit today. Reports feeling weak and achy all over. Denies respiratory or urinary infectious symptoms. Reports medication adherence. Denies medication intolerances. Denies any recent falls. Other than as described, nursing staff reports no and patient denies any symptoms at rest or with modest exertion of uncontrolled hypertension, hypotension, decompensated COPD as noted,.symptoms or signs of decompensated Parkinson's disease,any recent or remote seizures or reported seizure, any warning symptoms of GERD or any recent or remote uncontrolled symptoms of GERD, new or unmanageable tremors, any new emotional decompensation. No other new nursing concerns regarding this patient's health. 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 Simple chronic bronchitis Tonic-clonic seizure disorder Wernicke-Korsakoff syndrome (alcoholic) White matter disease PSHx: Past Surgical History: Procedure Laterality Date COLONOSCOPY DIAGNOSTIC 02/2018 HEART CATHETERIZATION 01/14/2017 REPAIR SHOULDER ROTATOR CUFF Left 09/2016 LEG SURGERY Bilateral MEDICATIONS: Current Outpatient Medications Medication Sig Dispense Refill acetaminophen (Tylenol) 325 MG tablet Take 2 tablets by mouth every 4 hours as needed for Mild Pain. 60 tablet 5 albuterol 108 (90 Base) MCG/ACT Aero Soln inhaler Inhale 2 puffs 4 times daily. aspirin EC [address] Take 81 mg by mouth daily. atorvastatin 40 MG tablet Take 1 tablet by mouth daily. 90 tablet 1 busPIRone 10 MG tablet Take 1 tablet by mouth 3 times daily. carbidopa-levodopa 50-200 MG Tab CR Take 1 tablet by mouth 2 times daily. doxycycline hyclate 100 MG capsule Take 1 capsule by mouth 2 times daily for 7 days. 14 capsule 0 faMOTIdine 20 MG tablet Take 20 mg by mouth daily. finasteride 5 MG tablet Take 5 mg by mouth daily. hydrOXYzine pamoate 25 MG capsule Take 1 capsule by mouth Every night. lithium 300 MG capsule Take 300 mg by mouth 2 times daily with meals. LORazepam 0.5 MG tablet Take 1 tablet by mouth 2 times daily. LORazepam 1 MG tablet Take 1 tablet by mouth at bedtime. losartan 25 MG tablet Take 25 mg by mouth daily. Meclizine 25 MG tablet Take 0.5 tablets by mouth 3 times daily as needed for Nausea / Vomiting for up to 5 days. 15 tablet 0 OLANZapine 10 MG tablet Take 10 mg by mouth daily every morning. selegiline 5 MG capsule Take 5 mg by mouth 2 times daily. Tamsulosin HCl 0.4 MG capsule Take 0.4 mg by mouth daily. traZODone 50 MG tablet Take 1 tablet by mouth at bedtime. No current facility-administered medications for this visit. 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 ROS: Review of Systems Constitutional: HPI Negative for weakness, appetite change, weight loss or weight change. Cardiovascular: Negative for chest pain, chest pressure, orthopnea or leg swelling. HEENT: Denies postnasal drainage, sore throats, difficulty with hearing or vision Respiratory: Denies dyspnea, pleuritic discomfort, cough, hemoptysis. Gastrointestinal: Negative for pyrosis, dysphagia, odynophagia, melena, hematochezia, constipation or diarrhea. Genitourinary:Negative for dysuria,frequency,urgency. Hematologic: Negative for epistaxis, ecchymoses. Lymphatic: Negative for lumps of the cervical, axillary, or inguinal regions Endocrinologic: Negative for polydipsia polyphagia polyuria Musculoskeletal: Negative for swelling, pain, stiffness Neuro: Negative for numbness, tingling, sensory change or focal weakness. Skin: Negative for rashes or new lesions. Psychiatric: Negative for any new depression or anxiety PHYSICAL EXAM: Vital signs 215 lb, down 2 lb for the past 4 months, 126/80, 92, 16 Constitutional: Appearing fatigued. Skin: Skin is warm. No rash noted. HEENT: Noninjected conjunctivae. Neck: Carotid bruit is not present. No mass and no thyromegaly present. Lymphadenopathy: He has no cervical, supraclavicular, or axillary adenopathy. Cardiovascular: Pulse apically and peripherally regular, no murmur, no signs of failure. Hematologic: No epistaxis or ecchymoses. Abdominal: Moderately obese without tenderness. Pulmonary/Chest: Clear lung ridley, no conversational dyspnea. Musculoskeletal: Oa findings upper and lower extremities. Nonantalgic gait. Neurological: Lethargic, slowed psychomotor responses, not opening eyes upon command, no tremors or asterixis Psychiatric: Depressed mood with appropriate affect. LABS, DIAGNOSTICS: Tertiary facility ER database from February 19 reviewed. October 14 and September 22 lab work once again reviewed. September 18 hospitalization database reviewed and discussed with patient. Emergency department visit and lab results from October 31 min again reviewed. October 04, 2020 labs-once again reviewed. ASSESSMENT: 1. Lethargy 2. Hypertensive heart disease without heart failure 3. Dizziness 4. Generalized weakness 5. COPD, mild 6. Physical debility 7. Seizure disorder 8. Gastroesophageal reflux disease without esophagitis 9. Parkinson's disease 10. Severe alcohol use disorder, in sustained remission 11. Cigarette nicotine dependence in remission PLAN: Chart reviewed. Conditions and management discussed with patient. Patient agreeable to ER evaluation. Maintaining: Angiotensin receptor екатерина therapy for hypertension management. As needed albuterol inhaler for COPD management. Anti Parkinson's medications for Parkinson's management. Alpha-екатерина for BPH management. H2 receptor екатерина therapy for GERD management. Anti-platelet therapy for CAD, CVD prophylaxis given this patient's chronic tobacco use and hypertension. Mental health medications as per consulting psychiatrist. Advised consistency with: Responsible hydration, nutrition, rest for maintenance of his physical and emotional health. self management of mental health conditions. Cautious, achievable, wellness routine for the maintenance of his physical and emotional health. Adherence with fall prevention measures discussed- cane or walker, preferably walker,. mental health follow-up visits (on-site facilitated by nursing staff) and psychiatric medication regimen the maintenance of his emotional health. Influenza, pneumococcal, recombinant zoster vaccinations. As noted, current with the SARS-CoV-2 vaccination, including booster. 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 Follow-up with Neurology for Parkinson's management. Becoming current with dental and ocular care visits as clinically indicated. Walking routine for VTE prophylaxis. Full Code Status. documented in this encounter [employer] Phone: 02-24-2023 Hospital Discharge instructions Wallace Garcia DO - 02/24/2023 5:56 PM EDT Patient had a fall resulting in a hip contusion. There is also arthritis of the hip. Patient has been given pain medication and a walker he is instructed to use those as prescribed. He is instructed to follow-up with the primary care physician as well as the orthopedic [place], take all medications as prescribed return to the emergency room immediately for any new or worsening complaints. The following attachments cannot be sent through Care Everywhere.Arthritis (Mozambican)Joint Pain (Mozambican)Hip Pain ([place]ozambican)documented in this encounter [employer] Phone: 02-24-2023 Note PROCEDURE: CT HIP RI GHT WO CONTRAST CLINICAL INFORMATION: Fall, pain, findings of aseptic necrosis indeterminant for fracture . COMPARISON: Plain radiographs obtained on the same day.. TECHNIQUE: Axial thin section CT images were obtained through the right hip. No contrast was given. Coronal and sagittal reconstructions were obtained. All CT scans at this facility use dose modulation, iterative reconstruction, and/or weight-based dosing when appropriate to reduce radiation dose to as low as reasonably achievable. FINDINGS: There is degenerative change in the right hip with joint space narrowing especially superiorly. There are geodes in the femoral head and acetabulum. There is no fracture, avascular necrosis or other bony abnormality noted. There is no significant hip effusion. There is degenerative change involving the sacroiliac joint. There is vascular calcification. There is a small right inguinal hernia containing fat [facility] 02-24-2023 Note PROCEDURE: XR HIP 2- 3 VW W PELVIS RIGHT CLINICAL INFORMATION: fall out of bed . TECHNIQUE: AP pelvis AP and frog-leg projections of the right hip COMPARISON: No prior study. FINDINGS: All images are underpenetrated. There is no acute fracture or dislocation. 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 Similar finding to a lesser degree on the left femoral head. SI joints are intact. Remote healed fracture of the right inferior pubic ramus [facility] 02-19-2023 Hospital Discharge instructions Francisco J Cole MD - 02/19/2023 8:38 PM EDT No clear etiology of abdominal pain, but your labs and CT abdomen and pelvis are reassuring. Recommend taking [id number] Tylenol or ibuprofen for pain. PCP follow-up in 3 days. The following attachments cannot be sent through Care Everywhere.Abdominal Pain ([place]oz[place])documented in this encounter [employer] Phone: 02-19-2023 Note PROCEDURE: CT ABDOME N PELVIS W IV CONTRAST CLINICAL INFORMATION: Abdominal pain for 3 hours . COMPARISON: None. TECHNIQUE: Axial [address] images were obtained through the abdomen and pelvis after the administration of intravenous contrast. Coronal and sagittal reconstructions were obtained. All CT scans at this facility use dose modulation, iterative reconstruction, and/or weight-based dosing when appropriate to reduce radiation dose to as low as reasonably achievable. FINDINGS: There are areas of atelectasis or scarring in the right and left lower lobes.. The base of the heart is within appropriate limits. There are tiny probable cysts in the dome of right lobe of liver. Please correlate with liver function tests.. The spleen is normal. The adrenals and pancreas are normal. The gallbladder is normal. There is punctate calcification in the upper pole of the right kidney. There is no associated hydronephrosis. There is a probable 2.6 x 2.6 cm left renal cyst. There is a hiatal hernia. There is a right inguinal hernia containing fat. No abnormalities of the small bowel loops are noted. There is atherosclerotic calcification in the abdominal aorta and iliac arteries.. There is no adenopathy. The urinary bladder is normal. The prostate gland measures 4 x 3.2 cm in size. There is no pelvic free fluid. The colon is within normal limits. There is no adenopathy. There is an old compression deformity along the superior endplate of L1 with 30% compression.. [facility] 10-02-2022 History of Present illness Narrative Patient ID: Sana Stanley is a 67 y.o. male CC: [facility] Facility visit for Recent Influenza Infection, COPD exacerbation, and Admission, with continued oxygen requirement Essential Hypertension, COPD, Parkinson's disease, Seizure Disorder, GERD, Essential Tremor, Mild Cognitive Impairment, Alcohol Use Disorder, Severe, In Sustained Remission, BPH, Schizoaffective Disorder, Bipolar Type, Diverticulosis, history of unsteady gait,Rolon's Palsy, resolved HPI: Patient reports that he still feels weak. Has also required oxygen he and acute care certified nursing assistant report. Appetite is coming back. Breathing is better, cough is lessening, without pleuritic discomfort, hemoptysis. Denies any new arthralgias or myalgias. Ambulating carefully he describes. Gradually getting his strength back. Was vaccinated for influenza a and also for SARS-CoV-2. Has not had to have any new or frequent aerosol treatments, given his COPD. Patient reports no anddenies any symptoms at rest or with modest exertion of uncontrolled hypertension, hypotension, decompensated COPD as noted,.symptoms or signs of decompensated Parkinson's disease,any recent or remote seizures or reported seizure, any warning symptoms of GERD or any recent or remote uncontrolled symptoms of GERD, new or unmanageable tremors, any new emotional decompensation. Has not resumed tobacco for which patient was acknowledged. 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 Simple chronic bronchitis Tonic-clonic seizure disorder Wernicke-Korsakoff syndrome (alcoholic) White matter disease PSHx: Past Surgical History: Procedure Laterality Date COLONOSCOPY DIAGNOSTIC 02/2018 HEART CATHETERIZATION 01/14/2017 REPAIR SHOULDER ROTATOR CUFF Left 09/2016 LEG SURGERY Bilateral MEDICATIONS: Current Outpatient Medications Medication Sig Dispense Refill acetaminophen (Tylenol) 325 MG tablet Take 2 tablets by mouth every 4 hours as needed for Mild Pain. 60 tablet 5 albuterol 108 (90 Base) MCG/ACT Aero Soln inhaler Inhale 2 puffs 4 times daily. aspirin EC [address] Take 81 mg by mouth daily. atorvastatin 40 MG tablet Take 1 tablet by mouth daily. 90 tablet 1 carbidopa-levodopa 50-200 MG Tab CR Take 1 tablet by mouth 2 times daily. faMOTIdine 20 MG tablet Take 20 mg by mouth daily. finasteride 5 MG tablet Take 5 mg by mouth daily. lithium 300 MG capsule Take 300 mg by mouth 2 times daily with meals. losartan 25 MG tablet Take 25 mg by mouth daily. OLANZapine 10 MG tablet Take 10 mg by mouth daily every morning. selegiline 5 MG capsule Take 5 mg by mouth 2 times daily. Tamsulosin HCl 0.4 MG capsule Take 0.4 mg by mouth daily. No current facility-administered medications for this visit. 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 ROS: Review of Systems Constitutional: Refer to HPI. Cardiovascular: Negative for chest pain, chest pressure, orthopnea or leg swelling. HEENT: Denies postnasal drainage, sore throats, difficulty with hearing or vision Respiratory: See HPI.. Gastrointestinal: Negative for pyrosis, dysphagia, odynophagia, melena, hematochezia, constipation or diarrhea. Genitourinary:Negative for dysuria,frequency,urgency. Hematologic: Negative for epistaxis, ecchymoses. Lymphatic: Negative for lumps of the cervical, axillary, or inguinal regions Endocrinologic: Negative for polydipsia polyphagia polyuria Musculoskeletal: Negative for swelling, pain, stiffness Neuro: Negative for numbness, tingling, sensory change or focal weakness. Skin: Negative for rashes or new lesions. Psychiatric: Negative for any new depression or anxiety PHYSICAL EXAM: Vital signs 229 lb up 4 lb for the past month, 126/82, 74, 18, unlabored Constitutional: Appearing fatigued. Skin: Skin is warm. No rash noted. HEENT: Noninjected conjunctivae. Nasal cannula in place with oxygen tank at his side. Neck: Carotid bruit is not present. No mass and no thyromegaly present. Lymphadenopathy: He has no cervical, supraclavicular, or axillary adenopathy. Cardiovascular: Pulse apically and peripherally regular, no murmur, no signs of failure. Hematologic: No epistaxis or ecchymoses. Abdominal: Moderately obese without tenderness. Pulmonary/Chest: Mildly diminished breath sounds. No dyspnea with exertion or with conversation. Musculoskeletal: Oa findings upper and lower extremities. Nonantalgic gait. Neurological: Followed commands, appropriate gait, mildly hearing. Psychiatric: Mildly depressed mood with appropriate affect. LABS, DIAGNOSTICS: September 18 hospitalization database reviewed and discussed with patient. Emergency department visit and lab results from October 31 min again reviewed. October 04, 2020 labs-once again reviewed. ASSESSMENT: 1. Influenza A H1N1 infection 2. COPD with acute exacerbation 3. Dependence on continuous supplemental oxygen 4. Physical debility 5. Hypertensive heart disease without heart failure 6. Cigarette nicotine dependence, uncomplicated 7. Seizure disorder 8. Gastroesophageal reflux disease without esophagitis 9. Parkinson's disease 10. Severe alcohol use disorder, in sustained remission 11. Benign prostatic hyperplasia without lower urinary tract symptoms PLAN: Chart reviewed. Conditions and management reviewed with patient. Encouraged consistency with nutrition, hydration, rest and cautious physical activity as he recovers. Wean supplemental oxygen pending patient response and oxygen saturation levels. Continuing: Angiotensin receptor екатерина therapy for hypertension management. As needed albuterol inhaler for COPD management. Anti Parkinson's medications for Parkinson's management. Alpha-екатерина for BPH management. H2 receptor екатерина therapy for GERD management. Anti-platelet therapy for CAD, CVD prophylaxis given this patient's chronic tobacco use and hypertension. Mental health medications as per consulting psychiatrist. Advised to: Responsible hydration, nutrition, rest for maintenance of his physical and emotional health. Responsible self management of mental health conditions. Cautious, achievable, wellness routine for the maintenance of his physical and emotional health. Adherence with fall prevention measures discussed- cane or walker, preferably walker,. Adherence with mental health follow-up visits and psychiatric medication regimen the maintenance of his emotional health. Influenza, pneumococcal, recombinant zoster vaccinations. As noted, current with the SARS-CoV-2 vaccination, including booster. 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 Follow-up with Neurology for Parkinson's management. Becoming current with dental and ocular care visits as clinically indicated. Walking routine for VTE prophylaxis. Presently no interest in resuming tobacco for which patient was encouraged not to resume tobacco given his vulnerability with COPD and recent concomitant infection. Tobacco cessation counseling time 5 minutes. Full Code Status. documented in this encounter [employer] Phone: 09-23-2022 Hospital Discharge instructions Tracey Smith RN - 09/23/2022 2:04 PM EST Up with assistance prn. Tracey Smith RN - 09/23/2022 2:04 PM EST Good nutrition is important when healing from an illness, injury, or surgery. Follow any nutrition recommendations given to you during your hospital stay. If you were given an oral nutrition supplement while in the hospital, continue to take this supplement at home. You can take it with meals, in-between meals, and/or before bedtime. These supplements can be purchased at most local grocery stores, pharmacies, and chain [employer]-stores. If you have any questions about your diet or nutrition, call the hospital and ask for the dietitian 4 carb diet Tracey Smith, RN - 09/23/2022 2:04 PM EST Continuity of Care Form Patient Name: Sana Stanley : 1955 Admit date: 09/18/2022 Discharge date: Code Status Order: Full Code Advance Directives: Admitting Physician: Alice Rollins APRN - CLINICAL APPEALS SPECIALIST PCP: Piyush Keane MD Discharging Nurse: Discharging Hospital Unit/Room#: 8A-11/011-A Discharging Unit Phone Number: Emergency Contact: Extended Emergency Contact Information Primary Emergency Contact: Lewis Stanley Address: [address] [place] [address] Relation: Brother/Sister Past Surgical History: Past Surgical History: Procedure Laterality Date CYST REMOVAL LEG SURGERY Right Immunization History: Immunization History Administered Date(s) Administered COVID-19, MODERNA BLUE border, Primary or Immunocompromised, (age 12y+), IM, 100 mcg/0.5mL 11/19/2020, 12/17/2020 Active Problems: Patient Active Problem List Diagnosis Code Benign prostatic hyperplasia without lower urinary tract symptoms N40.0 COPD, mild ([facility]) J44.9 Hypertensive disorder I10 Essential tremor G25.0 Gastroesophageal reflux disease without esophagitis K21.9 Mild cognitive impairment G31.84 Parkinson's disease ([facility]) G20 Schizoaffective disorder, bipolar type ([facility]) F25.0 Seizure disorder ([facility]) G40.909 Severe alcohol use disorder, in sustained remission ([facility]) F10.21 Acute hypoxemic respiratory failure ([facility]) J96.01 Cigarette nicotine dependence, uncomplicated F17.210 Isolation/Infection: Isolation Droplet Patient Infection Status Infection Onset Added Last Indicated Last Indicated By Review Planned Expiration Resolved Resolved By Influenza 09/18/22 09/18/22 09/18/22 COVID-19 & Influenza Combo 09/25/22 09/28/22 Resolved COVID-19 (Rule Out) 09/18/22 09/18/22 09/18/22 COVID-19 & Influenza Combo (Ordered) 09/18/22 Rule-Out Test Resulted Nurse Assessment: Last Vital Signs: BP 126/86 Pulse 100 Temp 98.6 F (37 C) (Oral) Resp 22 Ht 5' 7 (1.702 m) Wt 235 lb (106.6 kg) SpO2 93% BMI 36.81 kg/m Last documented pain score (0-10 scale): Pain Level: 0 Last Weight: Wt Readings from Last 1 Encounters: 09/18/22 235 lb (106.6 kg) Mental Status: {IP PT MENTAL STATUS:65669} IV Access: { MICHELLE IV ACCESS:590325492} Nursing Mobility/ADLs: Walking {CHP DME ADLs:826249096} Transfer {CHP DME ADLs:674904528} Bathing {CHP DME ADLs:323800841} Dressing {CHP DME ADLs:574077310} Toileting {CHP DME ADLs:389698613} Feeding {CHP DME ADLs:521047914} Leather Roller {CHP DME ADLs:661243073} Med Delivery {[facility] Delivery:439656389} Wound Care Documentation and Therapy: Elimination: Continence: Bowel: {YES / NO:} Bladder: {YES / NO:} Urinary Catheter: {Urinary Catheter:619858216} Colostomy/Ileostomy/Ileal Conduit: {YES / NO:} Date of Last BM: No intake or output data in the 24 hours ending 09/23/22 1404 No intake/output data recorded. Safety Concerns: { MICHELLE Safety Concerns:149056274} Impairments/Disabilities: {[facility] Impairments/Disabilities:625310 273} Nutrition Therapy: Current Nutrition Therapy: { MICHELLE Diet List:076082288} Routes of Feeding: {CHP DME Other Feedings:582447113} Liquids: {Social Research Assistant liquid thickness:56201} Daily Fluid Restriction: {CHP DME Yes amt example:031892164} Last Modified Barium Swallow with Video (Video Swallowing Test): {Done Not Done Date:} Treatments at the Time of Hospital Discharge: Respiratory Treatments: Oxygen Therapy: {Therapy; copd oxygen:37611} Ventilator: {[facility] Vent List:495115295} Rehab Therapies: {THERAPEUTIC INTERVENTION:2797364141} Weight Bearing Status/Restrictions: {[facility] CC Weight Bearin} Other Medical Equipment (for information only, NOT a DME order): {EQUIPMENT:528718284} Other Treatments: Patient's personal belongings (please select all that are sent with patient): {CHP DME Belongings:718815115} RN SIGNATURE: {Esignature:741009861} CASE MANAGEMENT/SOCIAL WORK SECTION Inpatient Status Date: Readmission Risk Assessment Score: Readmission Risk Risk of Unplanned Readmission: 16 Discharging to Facility/ Agency Name: Address: Phone: Fax: Dialysis Facility (if applicable) Name: Address: Dialysis Schedule: Phone: Fax: Hand Coper/Wet Machine Tender signature: {Esignature:579206169} PHYSICIAN SECTION Prognosis: {Prognosis:7595014052} Condition at Discharge: { Patient Condition:132066274} Rehab Potential (if transferring to Rehab): {Prognosis:0605080592} Recommended Labs or Other Treatments After Discharge: Physician Certification: I certify the above information and transfer of Sana Stanley is necessary for the continuing treatment of the diagnosis listed and that he requires {Admit to Appropriate Level of Care:67350} for {GREATER/LESS:381268568} 30 days. Update Admission H&P: {CHP DME Changes in HandP:036402790} PHYSICIAN SIGNATURE: {Esignature:169984309} documented in this encounter [employer] Phone: 09-23-2022 History of Present illness Narrative A home oxygen evaluation has been completed. [x]Patient is an inpatient. It is expected that the patient will be discharged within the next 48 hours. Qualified provider to write order for home prescription if patient qualifies. Social service/care managers will arrange for home oxygen. If patient is active, arrange for Home Medical supplier to assess for Oxygen Conserving Device per pulse oximetry. []Patient is an outpatient. Results will be faxed to the ordering provider. Qualified provider to write order for home prescription if patient qualifies and arranges for home oxygen. Patient was placed on room air for 20 minutes. SpO2 was 86 % on room air at rest. Patients SpO2 was below 89% and qualified for home oxygen. Oxygen was applied at 2 lpm via nasal cannula to maintain a SpO2 between 90-92% while at rest. Actual SpO2 was 92 %. Patient can ambulate for exercise flow rate. Patients was ambulated, SpO2 was 90% on 3 lpm to maintain SpO2 between 90-92% while exercising. Note: For any SpO2 at 89% see policy and procedure for possible qualifications. Images from the original note were not included. Hospitalist Progress Note Patient: Sana Stanley Unit/Bed:[facility] Date of : 1955 Acct: [id number] PCP: Piyush Keane MD Date of Admission: 09/18/2022 Assessment/Plan: Acute hypoxic respiratory failure secondary to influenza A--Tamiflu 09/19; on 3 L of oxygen satting 91% and will attempt to wean again today, incentive spirometry and Acapella; will check CTA chest to rule out PE or other etiology; will need home oxygen evaluation Sepsis secondary to influenza A infection (POA)--please see #1; resolved Possible acute COPD exacerbation--albuterol inhaler twice a day, on prednisone 40 mg daily 09/18; needs outpatient PFTs and follow-up with pulmonology, he also needs to stop smoking Primary hypertension, uncontrolled--on Cozaar; monitor Hyperkalemia--resolved Essential tremor Schizoaffective disorder--treated Hyperlipidemia Tobacco abuse--cessation counseling, on NicoDerm 21 mg topically however refused so I am stopping; states he stopped smoking a year ago Obesity with BMI 36.81 Expected discharge date: 1 to 2 days Disposition: [] Home [] TCU [] Rehab [] Psych [] SNF [] [facility] [] Other- Chief Complaint: Shortness of breath Hospital Course: Per H&P dated 09/18/2022: Patient presents to the ED with shortness of breath and cough. The patient had initially stated in the ED that it had been a few days of symptoms. After admission the patient states he has been short of breath for 6 months. The patient was found to have influenza A while in the ED. Patient is requiring up to 6L NC in the ED and was weaned to 3L NC at the time of admission. Patient to be admitted for further treatment of acute of chronic respiratory failure. 09/19--> hemodynamically stable, currently on 3 L of oxygen satting 91%, patient states he smoked 2 packs a day for 40 years 09/20--> hemodynamically stable on 4 L of oxygen satting 92 to 93% 09/21--> hemodynamically stable, afebrile, on 2 L of oxygen satting 93% 09/22--> hemodynamically stable, afebrile, on 3 L of oxygen satting 91%; does not appear in any distress, patient states he does not use oxygen at home Subjective (past 24 hours): Denies pain, states he has a productive cough with yellow sputum, slightly feels short of breath, denies nausea, is eating, states he stopped smoking a year ago; states he is eating well Medications: Reviewed Infusion Medications sodium chloride Scheduled Medications enoxaparin 30 mg SubCUTAneous Q12H selegiline 5 mg Oral BID WC mometasone-formoterol 2 puff Inhalation BID nicotine 1 patch TransDERmal Daily lithium 300 mg Oral Q12H predniSONE 40 mg Oral Daily albuterol sulfate HFA 2 puff Inhalation TID aspirin EC 81 mg Oral Daily atorvastatin 40 mg Oral Daily famotidine 20 mg Oral Daily finasteride 5 mg Oral Daily losartan 25 mg Oral Daily OLANZapine 10 mg Oral Nightly tamsulosin 0.4 mg Oral Daily sodium chloride flush 5-40 mL IntraVENous 2 times per day oseltamivir 75 mg Oral BID PRN Meds: ipratropium-albuterol, sodium chloride flush, sodium chloride, ondansetron OR ondansetron, polyethylene glycol, acetaminophen OR acetaminophen, potassium chloride OR potassium alternative oral replacement OR potassium chloride, magnesium sulfate Intake/Output Summary (Last 24 hours) at 09/22/2022 0715 Last data filed at 09/21/2022 0908 Gross per 24 hour Intake 10 ml Output -- Net 10 ml Diet: ADULT DIET; Regular; 4 carb choices (60 gm/meal); Low Fat/Low Chol/High Fiber/DB Exam: BP 137/83 Pulse 84 Temp 98.8 F (37.1 C) (Oral) Resp 18 Ht 5' 7 (1.702 m) Wt 235 lb (106.6 kg) SpO2 91% BMI 36.81 kg/m General appearance: No apparent distress, appears stated age and cooperative. HEENT: Pupils equal, round, and reactive to light. Conjunctivae/corneas clear. Neck: Supple, with full range of motion. No jugular venous distention. Trachea midline. Respiratory: Normal respiratory effort. Diminished with scattered expiratory wheezing noted bilateral, speaks in complete sentences Cardiovascular: Regular rate and rhythm with normal S1/S2 without murmurs, rubs or gallops. Abdomen: Soft, non-tender, non-distended with normal bowel sounds. Musculoskeletal: passive and active ROM x 4 extremities. Skin: Skin color, texture, turgor normal. Neurologic: Neurovascularly intact without any focal sensory/motor deficits. Cranial nerves: II-XII intact, grossly non-focal. Psychiatric: Alert and oriented, thought content appropriate Capillary Refill: Brisk,< 3 seconds Peripheral Pulses: +2 palpable, equal bilaterally Labs: Recent Labs 09/20/22 0605 09/22/22 0548 WBC 9.2 7.4 HGB 13.2* 13.0* HCT 41.0* 39.8* PLT 185 188 Recent Labs 09/19/22 1213 09/20/22 0605 09/22/22 0548 NA -- 143 143 K 4.8 4.4 4.3 CL -- 108 106 CO2 -- 25 25 BUN -- 16 14 CREATININE -- 0.8 0.6 CALCIUM -- 8.3* 8.5 Microbiology: COVID-19 not detected Influenza A+ Radiology: XR CHEST PORTABLE Result Date: 09/18/2022 1 view chest x-ray Comparison: CR/SR - XR CHEST PORTABLE - 10/31/2021 02:51 PM EST Findings: Prominence of interstitial markings within the bilateral lower lungs. Linear opacity within the left lower lung. No consolidative process. Borderline heart size. Tortuous aorta. Prior left-sided rotator cuff repair. No acute displaced fracture. 1. Prominent interstitial markings within the lower lungs raising the possibility of an interstitial infiltrate or interstitial edema. 2. Linear focus of atelectasis within the left lower lung. This document has been electronically signed by: Izzy Espinoza MD on 09/18/2022 06:19 PM DVT prophylaxis: [x] Lovenox [] SCDs [] SQ Heparin [x] Encourage ambulation [] Already on Anticoagulation Code Status: Full Code PT/OT Eval Status: Ambulate Tele: [] Yes [x] no Active Hospital Problems Diagnosis Date Noted Acute hypoxemic respiratory failure (HCC) [J96.01] 09/18/2022 Priority: Medium Cigarette nicotine dependence, uncomplicated [F17.210] 03/21/2022 Priority: Medium COPD, mild (HCC) [J44.9] 05/03/2021 Schizoaffective disorder, bipolar type (HCC) [F25.0] 01/08/2017 Essential tremor [G25.0] 01/08/2017 Images from the original note were not included. Hospitalist Progress Note Patient: Sana Stanley [facility] Date of [facility] 1955 Acct: [id number] PCP: Piyush Keane MD Date of Admission: 09/18/2022 Assessment/Plan: Acute hypoxic respiratory failure secondary to influenza A--Tamiflu 09/19; on 2 L of oxygen satting 92% and will attempt to wean again today, incentive spirometry and Acapella Sepsis secondary to influenza A infection (POA)--please see #1; resolved Possible acute COPD exacerbation--albuterol inhaler twice a day, on prednisone 40 mg daily 09/18 Primary hypertension, uncontrolled--on Cozaar; monitor Hyperkalemia--resolved Essential tremor Schizoaffective disorder--treated Hyperlipidemia Tobacco abuse--cessation counseling, on NicoDerm 21 mg topically however refused this morning; states he stopped smoking a year ago Obesity with BMI 36.81 Expected discharge date: 1 to 2 days Disposition: [] Home [] TCU [] Rehab [] Psych [] SNF [] [facility] [] Other- Chief Complaint: Shortness of breath Hospital Course: Per H&P dated 09/18/2022: Patient presents to the ED with shortness of breath and cough. The patient had initially stated in the ED that it had been a few days of symptoms. After admission the patient states he has been short of breath for 6 months. The patient was found to have influenza A while in the ED. Patient is requiring up to 6L NC in the ED and was weaned to 3L NC at the time of admission. Patient to be admitted for further treatment of acute of chronic respiratory failure. 09/19--> hemodynamically stable, currently on 3 L of oxygen satting 91%, patient states he smoked 2 packs a day for 40 years 09/20--> hemodynamically stable on 4 L of oxygen satting 92 to 93% 09/21--> hemodynamically stable, afebrile, on 2 L of oxygen satting 93% Subjective (past 24 hours): Denies pain, states he has a nonproductive cough, slightly feels short of breath, denies nausea, is eating, states he stopped smoking a year ago; states he is eating well Medications: Reviewed Infusion Medications sodium chloride Scheduled Medications enoxaparin 30 mg SubCUTAneous Q12H selegiline 5 mg Oral BID WC mometasone-formoterol 2 puff Inhalation BID nicotine 1 patch TransDERmal Daily lithium 300 mg Oral Q12H predniSONE 40 mg Oral Daily albuterol sulfate HFA 2 puff Inhalation TID aspirin EC 81 mg Oral Daily atorvastatin 40 mg Oral Daily famotidine 20 mg Oral Daily finasteride 5 mg Oral Daily losartan 25 mg Oral Daily OLANZapine 10 mg Oral Nightly tamsulosin 0.4 mg Oral Daily sodium chloride flush 5-40 mL IntraVENous 2 times per day oseltamivir 75 mg Oral BID PRN Meds: ipratropium-albuterol, sodium chloride flush, sodium chloride, ondansetron OR ondansetron, polyethylene glycol, acetaminophen OR acetaminophen, potassium chloride OR potassium alternative oral replacement OR potassium chloride, magnesium sulfate No intake or output data in the 24 hours ending 09/21/22 0648 Diet: ADULT DIET; Regular; 4 carb choices (60 gm/meal); Low Fat/Low Chol/High Fiber/DB Exam: BP 108/68 Pulse 79 Temp 97.5 F (36.4 C) (Oral) Resp 18 Ht 5' 7 (1.702 m) Wt 235 lb (106.6 kg) SpO2 96% BMI 36.81 kg/m General appearance: No apparent distress, appears stated age and cooperative. HEENT: Pupils equal, round, and reactive to light. Conjunctivae/corneas clear. Neck: Supple, with full range of motion. No jugular venous distention. Trachea midline. Respiratory: Normal respiratory effort. Scattered expiratory wheezing noted bilateral, speaks in complete sentences Cardiovascular: Regular rate and rhythm with normal S1/S2 without murmurs, rubs or gallops. Abdomen: Soft, non-tender, non-distended with normal bowel sounds. Musculoskeletal: passive and active ROM x 4 extremities. Skin: Skin color, texture, turgor normal. Neurologic: Neurovascularly intact without any focal sensory/motor deficits. Cranial nerves: II-XII intact, grossly non-focal. Psychiatric: Alert and oriented, thought content appropriate Capillary Refill: Brisk,< 3 seconds Peripheral Pulses: +2 palpable, equal bilaterally Labs: Recent Labs 09/18/22 1720 09/19/22 0603 09/20/22 0605 WBC 8.2 9.4 9.2 HGB 13.1* 13.4* 13.2* HCT 40.0* 41.8* 41.0* PLT 161 171 185 Recent Labs 09/18/22 1720 09/19/22 0603 09/19/22 1213 09/20/22 0605 NA 135 139 -- 143 K 4.3 5.4* 4.8 4.4 CL 101 105 -- 108 CO2 23 26 -- 25 BUN 14 13 -- 16 CREATININE 0.8 0.8 -- 0.8 CALCIUM 8.4* 8.2* -- 8.3* Recent Labs 09/18/22 1720 AST 27 ALT <5* BILITOT 0.3 ALKPHOS 89 Microbiology: COVID-19 not detected Influenza A+ Radiology: XR CHEST PORTABLE Result Date: 09/18/2022 1 view chest x-ray Comparison: CR/SR - XR CHEST PORTABLE - 10/31/2021 02:51 PM EST Findings: Prominence of interstitial markings within the bilateral lower lungs. Linear opacity within the left lower lung. No consolidative process. Borderline heart size. Tortuous aorta. Prior left-sided rotator cuff repair. No acute displaced fracture. 1. Prominent interstitial markings within the lower lungs raising the possibility of an interstitial infiltrate or interstitial edema. 2. Linear focus of atelectasis within the left lower lung. This document has been electronically signed by: Izzy Espinoza MD on 09/18/2022 06:19 PM DVT prophylaxis: [x] Lovenox [] SCDs [] SQ Heparin [x] Encourage ambulation [] Already on Anticoagulation Code Status: Full Code PT/OT Eval Status: Ambulate Tele: [] Yes [x] no Active Hospital Problems Diagnosis Date Noted Acute hypoxemic respiratory failure (HCC) [J96.01] 09/18/2022 Priority: Medium Cigarette nicotine dependence, uncomplicated [F17.210] 03/21/2022 Priority: Medium COPD, mild (HCC) [J44.9] 05/03/2021 Schizoaffective disorder, bipolar type (HCC) [F25.0] 01/08/2017 Essential tremor [G25.0] 01/08/2017 Images from the original note were not included. Hospitalist Progress Note Patient: Sana Stanley [facility] Date of : 1955 Acct: [id number] PCP: Piyush Keane MD Date of Admission: 09/18/2022 Assessment/Plan: Acute hypoxic respiratory failure secondary to influenza A--Tamiflu 09/19; on 4 L of oxygen satting 91% and will attempt to wean, incentive spirometry and Acapella Sepsis secondary to influenza A infection (POA)--please see #1; resolved Possible acute COPD exacerbation--albuterol inhaler twice a day, on prednisone 40 mg daily 09/18 Primary hypertension, uncontrolled--on Cozaar; monitor Hyperkalemia--resolved Essential tremor Schizoaffective disorder--treated Hyperlipidemia Tobacco abuse--cessation counseling, on NicoDerm 21 mg topically however refused this morning; states he stopped smoking a year ago Obesity with BMI 36.81 Expected discharge date: 1 to 2 days Disposition: [] Home [] TCU [] Rehab [] Psych [] SNF [] [facility] [] Other- Chief Complaint: Shortness of breath Hospital Course: Per H&P dated 09/18/2022: Patient presents to the ED with shortness of breath and cough. The patient had initially stated in the ED that it had been a few days of symptoms. After admission the patient states he has been short of breath for 6 months. The patient was found to have influenza A while in the ED. Patient is requiring up to 6L NC in the ED and was weaned to 3L NC at the time of admission. Patient to be admitted for further treatment of acute of chronic respiratory failure. 09/19--> hemodynamically stable, currently on 3 L of oxygen satting 91%, patient states he smoked 2 packs a day for 40 years 09/20--> hemodynamically stable on 4 L of oxygen satting 92 to 93% Subjective (past 24 hours): Denies pain, states he has a nonproductive cough, slightly feels short of breath, denies nausea, is eating, states he stopped smoking a year ago Medications: Reviewed Infusion Medications sodium chloride Scheduled Medications enoxaparin 30 mg SubCUTAneous Q12H selegiline 5 mg Oral BID WC mometasone-formoterol 2 puff Inhalation BID nicotine 1 patch TransDERmal Daily lithium 300 mg Oral Q12H predniSONE 40 mg Oral Daily albuterol sulfate HFA 2 puff Inhalation TID aspirin EC 81 mg Oral Daily atorvastatin 40 mg Oral Daily famotidine 20 mg Oral Daily finasteride 5 mg Oral Daily losartan 25 mg Oral Daily OLANZapine 10 mg Oral Nightly tamsulosin 0.4 mg Oral Daily sodium chloride flush 5-40 mL IntraVENous 2 times per day oseltamivir 75 mg Oral BID PRN Meds: ipratropium-albuterol, sodium chloride flush, sodium chloride, ondansetron OR ondansetron, polyethylene glycol, acetaminophen OR acetaminophen, potassium chloride OR potassium alternative oral replacement OR potassium chloride, magnesium sulfate Intake/Output Summary (Last 24 hours) at 09/20/2022 0810 Last data filed at 09/20/2022 0000 Gross per 24 hour Intake 560 ml Output -- Net 560 ml Diet: ADULT DIET; Regular; 4 carb choices (60 gm/meal); Low Fat/Low Chol/High Fiber/DB Exam: BP 114/68 Pulse 95 Temp 97.2 F (36.2 C) (Axillary) Resp 20 Ht 5' 7 (1.702 m) Wt 235 lb (106.6 kg) SpO2 91% BMI 36.81 kg/m General appearance: No apparent distress, appears stated age and cooperative. HEENT: Pupils equal, round, and reactive to light. Conjunctivae/corneas clear. Neck: Supple, with full range of motion. No jugular venous distention. Trachea midline. Respiratory: Normal respiratory effort. Rhonchi initially that cleared with coughing however does have scattered expiratory wheezing noted bilateral, speaks in complete sentences Cardiovascular: Regular rate and rhythm with normal S1/S2 without murmurs, rubs or gallops. Abdomen: Soft, non-tender, non-distended with normal bowel sounds. Musculoskeletal: passive and active ROM x 4 extremities. Skin: Skin color, texture, turgor normal. Neurologic: Neurovascularly intact without any focal sensory/motor deficits. Cranial nerves: II-XII intact, grossly non-focal. Psychiatric: Alert and oriented, thought content appropriate Capillary Refill: Brisk,< 3 seconds Peripheral Pulses: +2 palpable, equal bilaterally Labs: Recent Labs 09/18/22 1720 09/19/22 0603 09/20/22 0605 WBC 8.2 9.4 9.2 HGB 13.1* 13.4* 13.2* HCT 40.0* 41.8* 41.0* PLT 161 171 185 Recent Labs 09/18/22 1720 09/19/22 0603 09/19/22 1213 09/20/22 0605 NA 135 139 -- 143 K 4.3 5.4* 4.8 4.4 CL 101 105 -- 108 CO2 23 26 -- 25 BUN 14 13 -- 16 CREATININE 0.8 0.8 -- 0.8 CALCIUM 8.4* 8.2* -- 8.3* Recent Labs 09/18/22 1720 AST 27 ALT <5* BILITOT 0.3 ALKPHOS 89 Microbiology: COVID-19 not detected Influenza A+ Radiology: XR CHEST PORTABLE Result Date: 09/18/2022 1 view chest x-ray Comparison: CR/SR - XR CHEST PORTABLE - 10/31/2021 02:51 PM EST Findings: Prominence of interstitial markings within the bilateral lower lungs. Linear opacity within the left lower lung. No consolidative process. Borderline heart size. Tortuous aorta. Prior left-sided rotator cuff repair. No acute displaced fracture. 1. Prominent interstitial markings within the lower lungs raising the possibility of an interstitial infiltrate or interstitial edema. 2. Linear focus of atelectasis within the left lower lung. This document has been electronically signed by: Izzy Espinoza MD on 09/18/2022 06:19 PM DVT prophylaxis: [x] Lovenox [] SCDs [] SQ Heparin [x] Encourage ambulation [] Already on Anticoagulation Code Status: Full Code PT/OT Eval Status: Ambulate Tele: [x] Yes sinus rhythm heart rate 92 [] no Active Hospital Problems Diagnosis Date Noted Acute hypoxemic respiratory failure (HCC) [J96.01] 09/18/2022 Priority: Medium Cigarette nicotine dependence, uncomplicated [F17.210] 03/21/2022 Priority: Medium COPD, mild (HCC) [J44.9] 05/03/2021 Schizoaffective disorder, bipolar type (HCC) [F25.0] 01/08/2017 Essential tremor [G25.0] 01/08/2017 Images from the original note were not included. Hospitalist Progress Note Patient: Sana Stanley [facility] Date of : 1955 Acct: [id number] PCP: Piyush Keane MD Date of Admission: 09/18/2022 Assessment/Plan: Acute hypoxic respiratory failure secondary to influenza A--Tamiflu 09/19; on 3 L of oxygen satting 91% and will attempt to wean, add incentive spirometry and Acapella Sepsis secondary to influenza A infection (POA)--please see #1 Possible acute COPD exacerbation--albuterol inhaler twice a day, on Solu-Medrol 40 mg daily and will change to oral Primary hypertension, uncontrolled--on Cozaar; monitor Hyperkalemia--recheck Essential tremor Schizoaffective disorder--treated Hyperlipidemia Tobacco abuse--cessation counseling, on NicoDerm 21 mg topically however refused this morning Obesity with BMI 36.81 Expected discharge date: 1 to 2 days Disposition: [] Home [] TCU [] Rehab [] Psych [] SNF [] [facility] [] Other- Chief Complaint: Shortness of breath Hospital Course: Per H&P dated 09/18/2022: Patient presents to the ED with shortness of breath and cough. The patient had initially stated in the ED that it had been a few days of symptoms. After admission the patient states he has been short of breath for 6 months. The patient was found to have influenza A while in the ED. Patient is requiring up to 6L NC in the ED and was weaned to 3L NC at the time of admission. Patient to be admitted for further treatment of acute of chronic respiratory failure. 09/19--> hemodynamically stable, currently on 3 L of oxygen satting 91%, patient states he smoked 2 packs a day for 40 years Subjective (past 24 hours): Denies pain, denies shortness of breath, does relate to nonproductive cough, states he had a fever 102 at home Medications: Reviewed Infusion Medications sodium chloride Scheduled Medications enoxaparin 30 mg SubCUTAneous Q12H selegiline 5 mg Oral BID WC mometasone-formoterol 2 puff Inhalation BID nicotine 1 patch TransDERmal Daily lithium 300 mg Oral Q12H aspirin EC 81 mg Oral Daily atorvastatin 40 mg Oral Daily famotidine 20 mg Oral Daily finasteride 5 mg Oral Daily losartan 25 mg Oral Daily OLANZapine 10 mg Oral Nightly tamsulosin 0.4 mg Oral Daily sodium chloride flush 5-40 mL IntraVENous 2 times per day oseltamivir 75 mg Oral BID methylPREDNISolone 40 mg IntraVENous Daily PRN Meds: ipratropium-albuterol, albuterol sulfate HFA, sodium chloride flush, sodium chloride, ondansetron OR ondansetron, polyethylene glycol, acetaminophen OR acetaminophen, potassium chloride OR potassium alternative oral replacement OR potassium chloride, magnesium sulfate Intake/Output Summary (Last 24 hours) at 09/19/2022 0713 Last data filed at 09/19/2022 0501 Gross per 24 hour Intake -- Output 925 ml Net -925 ml Diet: ADULT DIET; Regular; 4 carb choices (60 gm/meal); Low Fat/Low Chol/High Fiber/DB Exam: BP (!) 166/84 Pulse (!) 109 Temp 98.4 F (36.9 C) (Oral) Resp 22 Ht 5' 7 (1.702 m) Wt 235 lb (106.6 kg) SpO2 95% BMI 36.81 kg/m General appearance: No apparent distress, appears stated age and cooperative. HEENT: Pupils equal, round, and reactive to light. Conjunctivae/corneas clear. Neck: Supple, with full range of motion. No jugular venous distention. Trachea midline. Respiratory: Normal respiratory effort. Expiratory wheezing noted bilateral, speaks in complete sentences Cardiovascular: Regular rate and rhythm with normal S1/S2 without murmurs, rubs or gallops. Abdomen: Soft, non-tender, non-distended with normal bowel sounds. Musculoskeletal: passive and active ROM x 4 extremities. Skin: Skin color, texture, turgor normal. Neurologic: Neurovascularly intact without any focal sensory/motor deficits. Cranial nerves: II-XII intact, grossly non-focal. Psychiatric: Alert and oriented, thought content appropriate Capillary Refill: Brisk,< 3 seconds Peripheral Pulses: +2 palpable, equal bilaterally Labs: Recent Labs 09/18/22 1720 09/19/22 0603 WBC 8.2 9.4 HGB 13.1* 13.4* HCT 40.0* 41.8* PLT 161 171 Recent Labs 09/18/22 1720 09/19/22 0603 NA 135 139 K 4.3 -- CL 101 105 CO2 23 26 BUN 14 13 CREATININE 0.8 0.8 CALCIUM 8.4* 8.2* Recent Labs 09/18/22 1720 AST 27 ALT <5* BILITOT 0.3 ALKPHOS 89 Microbiology: COVID-19 not detected Influenza A+ Radiology: XR CHEST PORTABLE Result Date: 09/18/2022 1 view chest x-ray Comparison: CR/SR - XR CHEST PORTABLE - 10/31/2021 02:51 PM EST Findings: Prominence of interstitial markings within the bilateral lower lungs. Linear opacity within the left lower lung. No consolidative process. Borderline heart size. Tortuous aorta. Prior left-sided rotator cuff repair. No acute displaced fracture. 1. Prominent interstitial markings within the lower lungs raising the possibility of an interstitial infiltrate or interstitial edema. 2. Linear focus of atelectasis within the left lower lung. This document has been electronically signed by: Izzy Espinoza MD on 09/18/2022 06:19 PM DVT prophylaxis: [x] Lovenox [] SCDs [] SQ Heparin [x] Encourage ambulation [] Already on Anticoagulation Code Status: Full Code PT/OT Eval Status: Ambulate Tele: [x] Yes sinus tachycardia heart rate 105 [] no Active Hospital Problems Diagnosis Date Noted Acute hypoxemic respiratory failure (HCC) [J96.01] 09/18/2022 Priority: Medium Cigarette nicotine dependence, uncomplicated [F17.210] 03/21/2022 Priority: Medium COPD, mild (HCC) [J44.9] 05/03/2021 Schizoaffective disorder, bipolar type (HCC) [F25.0] 01/08/2017 Essential tremor [G25.0] 01/08/2017 Images from the original note were not included. Pharmacist Review and Automatic Dose Adjustment of Prophylactic Enoxaparin *Review reason for admission/hospital problem list* The reviewing pharmacist has made an adjustment to the ordered enoxaparin dose or converted to UFH per the approved [facility] protocol and table as identified below. Sana Stanley is a 67 y.o. male. Recent Labs 09/18/22 1720 CREATININE 0.8 Estimated Creatinine Clearance: 101 mL/min (based on SCr of 0.8 mg/dL). Recent Labs 09/18/22 1720 HGB 13.1* HCT 40.0* PLT 161 No results for input(s): INR in the last 72 hours. Height: Ht Readings from Last 1 Encounters: 09/18/22 5' 7 (1.702 m) Weight: Wt Readings from Last 1 Encounters: 09/18/22 235 lb (106.6 kg) Plan: Based upon the patient's weight and renal function, the ordered enoxaparin dose of 40 mg daily has been changed/converted to 30 mg twice daily. Thank you, Sharon Emerson RPH 09/19/2022, 12:13 AM documented in this encounter [employer] Work Phone: 09-23-2022 Note PROCEDURE: CTA CHEST W WO CONTRAST CLINICAL INFORMATION: Continued hypoxia. COMPARISON: Chest x-ray 09/18/2022. TECHNIQUE: 1.5 mm axial images were obtained through the chest after the administration of IV contrast. A non-contrast localizer was obtained. 2mm MIP reconstructions of the chest performed in coronal and sagittal planes. All CT scans at this facility use dose modulation, iterative reconstruction, and/or weight based dosing when appropriate to reduce the radiation dose to as low as reasonably achievable. CONTRAST: 80 cc Isovue-[id number] FINDINGS: Pulmonary arteries: Motion artifact limits visualization of the distal pulmonary arterial branches. No central pulmonary arterial filling defect is identified. Heart/mediastinum: The heart size is normal. No pericardial effusion is observed. Coronary artery calcifications are present. No aortic aneurysm or dissection is observed. Prominent mediastinal and hilar lymph nodes measure up to 13 mm in short axis. No axillary lymphadenopathy is visualized. Lungs: Centrilobular emphysema is present. Pleural-parenchymal scarring is noted at the lung apices. Patchy bilateral lower lobe airspace opacities are observed. Subpleural calcified right upper lobe pulmonary nodules measure 2 to 3 mm (series 4, image 83), A 3 mm right middle lobe pulmonary nodule is observed (series 4, image 115). Upper abdomen: No acute findings are noted in the limited images through the upper abdomen. Musculoskeletal: Diffuse osteopenia is present. Multilevel degenerative disc disease is noted in the thoracic spine. The visualized skeletal structures appear intact. A subcutaneous superficial midline chest wall lesion measuring 17 x 18 mm (series 5, image 235) likely corresponds to a sebaceous cyst. [facility] 07-03-2022 History of Present illness Narrative Patient ID: Sana Stanley is a 67 y.o. male CC: [facility] Facility visit for Essential Hypertension, COPD, Parkinson's disease, Seizure Disorder, GERD, Essential Tremor, Mild Cognitive Impairment, Alcohol Use Disorder, Severe, In Sustained Remission, BPH, Schizoaffective Disorder, Bipolar Type, Diverticulosis, history of unsteady gait,Rolon's Palsy, resolved HPI: Patient reports feeling well. Still recovering from his brother's . Patient witnessed CPR being performed him at the other facility where patient was residing. Patient has moved to this facility to get away from the experience. Liking the facility because they are less people and more quiet. Reports emotionally doing the best he can. Nursing staff reports no and patient denies any symptoms at rest or with modest exertion of uncontrolled hypertension, hypotension, decompensated COPD,.symptoms or signs of decompensated Parkinson's disease,any recent or remote seizures or reported seizure, any warning symptoms of GERD or any recent or remote uncontrolled symptoms of GERD, new or unmanageable tremors, any new emotional decompensation. Patient reports remain consistent with mental health care, particularly with the recent loss of his brother. No interest with tobacco wean or cessation or nicotine replacement therapy. Benefits of tobacco cessation discussed. Harms of tobacco use also once again discussed. 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 Simple chronic bronchitis Tonic-clonic seizure disorder Wernicke-Korsakoff syndrome (alcoholic) White matter disease PSHx: Past Surgical History: Procedure Laterality Date COLONOSCOPY DIAGNOSTIC 02/2018 HEART CATHETERIZATION 01/14/2017 REPAIR SHOULDER ROTATOR CUFF Left 09/2016 LEG SURGERY Bilateral MEDICATIONS: Current Outpatient Medications Medication Sig Dispense Refill acetaminophen (Tylenol) 325 MG tablet Take 2 tablets by mouth every 4 hours as needed for Mild Pain. 60 tablet 5 albuterol 108 (90 Base) MCG/ACT Aero Soln inhaler Inhale 2 puffs 4 times daily. aspirin EC [address] Take 81 mg by mouth daily. atorvastatin 40 MG tablet Take 1 tablet by mouth daily. 90 tablet 1 carbidopa-levodopa 50-200 MG Tab CR Take 1 tablet by mouth 2 times daily. faMOTIdine 20 MG tablet Take 20 mg by mouth daily. finasteride 5 MG tablet Take 5 mg by mouth daily. lithium 300 MG capsule Take 300 mg by mouth 2 times daily with meals. losartan 25 MG tablet Take 25 mg by mouth daily. OLANZapine 10 MG tablet Take 10 mg by mouth daily every morning. selegiline 5 MG capsule Take 5 mg by mouth 2 times daily. Tamsulosin HCl 0.4 MG capsule Take 0.4 mg by mouth daily. No current facility-administered medications for this visit. 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 ROS: Review of Systems Constitutional: Negative for fever, chills, or extreme weight change. Cardiovascular: Negative for chest pain, chest pressure, orthopnea or leg swelling. HEENT: Denies postnasal drainage, sore throats, difficulty with hearing or vision Respiratory: Negative for shortness of breath or cough. Gastrointestinal: Negative for pyrosis, dysphagia, odynophagia, melena, hematochezia, constipation or diarrhea. Genitourinary:Negative for dysuria,frequency,urgency. Hematologic: Negative for epistaxis, ecchymoses. Lymphatic: Negative for lumps of the cervical, axillary, or inguinal regions Endocrinologic: Negative for polydipsia polyphagia polyuria Musculoskeletal: Negative for swelling, pain, stiffness Neuro: Negative for numbness, tingling, sensory change or focal weakness. Skin: Negative for rashes or new lesions. Psychiatric: Refer to HPI. PHYSICAL EXAM: Vital signs 144/88, 92, 16, 225 lb, up 7 lb for the past month Constitutional: In no distress. Skin: Skin is warm. No rash noted. HEENT: Noninjected conjunctivae. Neck: Carotid bruit is not present. No mass and no thyromegaly present. Lymphadenopathy: He has no cervical, supraclavicular, or axillary adenopathy. Cardiovascular: Pulse apically and peripherally regular, no murmur, no signs of failure. Hematologic: No epistaxis or ecchymoses. Abdominal: Moderately obese without tenderness. Pulmonary/Chest: Clear lung ridley.. Musculoskeletal: Oa findings upper and lower extremities. Nonantalgic gait. Neurological: Followed commands, appropriate gait, mildly hearing. Psychiatric: Calm mood with appropriate affect. LABS, DIAGNOSTICS: Emergency department visit and lab results from October 31 min again reviewed. October 04, 2020 labs-once again reviewed. ASSESSMENT: 1. Hypertensive heart disease without heart failure 2. COPD, mild 3. Cigarette nicotine dependence, uncomplicated 4. Gastroesophageal reflux disease without esophagitis 5. Parkinson's disease 6. Seizure disorder 7. Benign prostatic hyperplasia without lower urinary tract symptoms 8. Severe alcohol use disorder, in sustained remission 9. Mild cognitive impairment 10. Schizoaffective disorder, bipolar type PLAN: Chart reviewed. Conditions and management reviewed with patient. Receiving support from staff and mental health team as patient endures the recent loss of his brother. Maintaining: Angiotensin receptor екатерина therapy for hypertension management. As needed albuterol inhaler for COPD management. Anti Parkinson's medications for Parkinson's management. Alpha-екатерина for BPH management. H2 receptor екатерина therapy for GERD management. Anti-platelet therapy for CAD, CVD prophylaxis given this patient's chronic tobacco use and hypertension. Mental health medications as per consulting psychiatrist. Recommended: Responsible hydration, nutrition, rest for maintenance of his physical and emotional health. Responsible self management of mental health conditions. Cautious, achievable, wellness routine for the maintenance of his physical and emotional health. Adherence with fall prevention measures discussed- cane or walker, preferably walker,. Adherence with mental health follow-up visits and psychiatric medication regimen the maintenance of his emotional health. Influenza, pneumococcal, recombinant zoster vaccinations. As noted, current with the SARS-CoV-2 vaccination, including booster. 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 Follow-up with Neurology for Parkinson's management. Becoming current with dental and ocular care visits as clinically indicated. Walking routine for VTE prophylaxis. No interest with nicotine replacement therapy, tobacco wean/cessation recommendations benefits of tobacco cessation and risks of continued tobacco use once again discussed. Tobacco cessation counseling time 5 minutes. Full code status. documented in this encounter [employer] Phone: 11-28-2021 History of Present illness Narrative Patient ID: Sana Stanley is a 66 y.o. male CC: [facility] Facility visit For Recent Rolon's Palsy, resolving Essential Hypertension, COPD, Parkinson's disease, Seizure Disorder, GERD, Essential Tremor, Mild Cognitive Impairment, Alcohol Use Disorder, Severe, In Sustained Remission, BPH, Schizoaffective Disorder, Bipolar Type, Diverticulosis, history of unsteady gait HPI: Patient reports that the right side of his face is feeling better and looking better. 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 Given steroids. Doing well he reports. Denies any difficulty with his eye or any tearing. Nursing staff reports no and patient denies any symptoms at rest or with modest exertion of uncontrolled hypertension, hypotension, decompensated COPD,.symptoms or signs of decompensated Parkinson's disease,any recent or remote seizures or reported seizure, any warning symptoms of GERD or any recent or remote uncontrolled symptoms of GERD, new or unmanageable tremors, any new emotional decompensation. Medication adherence managed by nursing staff without reports of medication intolerances. 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 aspirin EC [address] Take 81 mg by mouth daily. carbidopa-levodopa 50-200 MG Tab CR Take 1 tablet by mouth 2 times daily. faMOTIdine 20 MG tablet Take 20 mg by mouth daily. finasteride 5 MG tablet Take 5 mg by mouth daily. lithium 300 MG capsule Take 300 mg by mouth 2 times daily with meals. losartan 25 MG tablet Take 25 mg by mouth daily. OLANZapine 10 MG tablet Take 10 mg by mouth daily every morning. selegiline 5 MG capsule Take 5 mg by mouth 2 times daily. Tamsulosin HCl 0.4 MG capsule Take 0.4 mg by mouth daily. No current facility-administered medications for this visit. 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 ROS: Review of Systems Constitutional: Negative for fever, chills, or extreme weight change. Cardiovascular: Negative for chest pain, chest pressure, orthopnea or leg swelling. HEENT: Denies postnasal drainage, sore throats, difficulty with hearing or vision Respiratory: Negative for shortness of breath or cough. Gastrointestinal: Negative for pyrosis, dysphagia, odynophagia, melena, hematochezia, constipation or diarrhea. Genitourinary:Negative for dysuria,frequency,urgency. Hematologic: Negative for epistaxis, ecchymoses. Lymphatic: Negative for lumps of the cervical, axillary, or inguinal regions Endocrinologic: Negative for polydipsia polyphagia polyuria Musculoskeletal: Negative for swelling, pain, stiffness Neuro: See HPI. Negative for numbness, tingling, sensory change or focal weakness. Skin: Negative for rashes or new lesions. Psychiatric: Negative for depression or anxiety. PHYSICAL EXAM: Vital signs: 132/86, 84, 12, 95 % room air pulse ox, 210 lb up 6 lb for the past 4 months Constitutional: In no distress. Skin: Skin is warm. No rash noted. HEENT: Noninjected conjunctivae. See neurological: Neck: Carotid bruit is not present. No mass and no thyromegaly present. Lymphadenopathy: He has no cervical, supraclavicular, or axillary adenopathy. Cardiovascular: Pulse apically and peripherally regular, no murmur, no signs of failure. Hematologic: No epistaxis or ecchymoses. Abdominal: Obese without tenderness. Pulmonary/Chest: Clear lung ridley.. Musculoskeletal: Oa findings upper and lower extremities. Nonantalgic gait. Neurological: Minimal right-sided facial droop, no abnormalities with eye closure. No tearing of the right eye. Improved gait, followed commands, mild tremor at rest Psychiatric: Pleasant mood with appropriate affect. LABS, DIAGNOSTICS: Emergency department visit from October 31 reviewed. None new since October 04, 2020 labs-once again reviewed. ASSESSMENT: 1. Rolon's palsy 2. COPD, mild 3. Cigarette nicotine dependence, uncomplicated 4. Gastroesophageal reflux disease without esophagitis 5. Parkinson's disease 6. Essential tremor 7. Seizure disorder 8. Benign prostatic hyperplasia without lower urinary tract symptoms 9. Severe alcohol use disorder, in sustained remission 10. Essential hypertension 11. Mild cognitive impairment 12. Schizoaffective disorder, bipolar type 13. Unsteady gait PLAN: Chart reviewed. Conditions and management discussed with patient. Rolon's palsy condition discussed with patient. Neurostimulation therapy as per physical therapy being orderede. Maintaining:: Angiotensin receptor екатерина therapy for hypertension management. As needed albuterol inhaler for COPD management. Anti Parkinson's medications for Parkinson's management. Alpha-екатерина for BPH management. H2 receptor екатерина therapy for GERD management. Anti-platelet therapy for CAD, CVD prophylaxis given this patient's chronic tobacco use and hypertension. Mental health medications as per consulting psychiatrist. Advised: Responsible hydration, nutrition, rest for maintenance of his physical and emotional health. Responsible self management of mental health conditions. Cautious, achievable, wellness routine for the maintenance of his physical and emotional health. Adherence with fall prevention measures. Adherence with mental health follow-up visits and psychiatric medication regimen the maintenance of his emotional health. Influenza, pneumococcal, recombinant zoster vaccinations. As noted, current with the SARS-CoV-2 vaccination, including booster. 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 Follow-up with Neurology for Parkinson's management. Becoming current with dental and ocular care visits as clinically indicated. Walking routine for VTE prophylaxis. Declines nicotine replacement therapy, tobacco wean/cessation recommendations benefits of tobacco cessation and risks of continued tobacco use once again discussed. Full code status. documented in this encounter [facility] 09-26-2021 History of Present illness Narrative Patient ID: Sana Stanley is a 66 y.o. male CC: [facility] Facility visit For Essential Hypertension, COPD, Parkinson's disease, Seizure Disorder, GERD, Essential Tremor, Mild Cognitive Impairment, Alcohol Use Disorder, Severe, In Sustained Remission, BPH, Schizoaffective Disorder, Bipolar Type, Diverticulosis, history of unsteady gait HPI: Patient reports feeling well. Very grateful for the care he is receiving at this facility. Reports gait has been better after having physical therapy sessions. Patient reports no and denies any symptoms at rest or with modest exertion of uncontrolled hypertension, hypotension, decompensated COPD,.symptoms or signs of decompensated Parkinson's disease,any recent or remote seizures or reported seizure, any warning symptoms of GERD or any recent or remote uncontrolled symptoms of GERD, new or unmanageable tremors, any new emotional decompensation. Medication adherence facilitated by nursing staff without reports of medication intolerances. 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 aspirin EC [address] Take 81 mg by mouth daily. carbidopa-levodopa 50-200 MG Tab CR Take 1 tablet by mouth 2 times daily. faMOTIdine 20 MG tablet Take 20 mg by mouth daily. finasteride 5 MG tablet Take 5 mg by mouth daily. lithium 300 MG capsule Take 300 mg by mouth 2 times daily with meals. losartan 25 MG tablet Take 25 mg by mouth daily. OLANZapine 10 MG tablet Take 10 mg by mouth daily every morning. selegiline 5 MG capsule Take 5 mg by mouth 2 times daily. Tamsulosin HCl 0.4 MG capsule Take 0.4 mg by mouth daily. No current facility-administered medications for this visit. 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 ROS: Review of Systems Constitutional: Negative for fever, chills, or extreme weight change. Cardiovascular: Negative for chest pain, chest pressure, orthopnea or leg swelling. HEENT: Denies postnasal drainage, sore throats, difficulty with hearing or vision Respiratory: Negative for shortness of breath or cough. Gastrointestinal: Negative for pyrosis, dysphagia, odynophagia, melena, hematochezia, constipation or diarrhea. Genitourinary:Negative for dysuria,frequency,urgency. Hematologic: Negative for epistaxis, ecchymoses. Lymphatic: Negative for lumps of the cervical, axillary, or inguinal regions Endocrinologic: Negative for polydipsia polyphagia polyuria Musculoskeletal: Negative for swelling, pain, stiffness Neuro: See HPI. Negative for numbness, tingling, sensory change or focal weakness. Skin: Negative for rashes or new lesions. Psychiatric: Negative for depression or anxiety. PHYSICAL EXAM: Vital signs: 116/70, 88, 96% room air pulse ox, 204 lb up 1 lb for the past 4 months Constitutional: In no distress. Skin: Skin is warm. No rash noted. HEENT: Noninjected conjunctivae. Neck: Carotid bruit is not present. No mass and no thyromegaly present. Lymphadenopathy: He has no cervical, supraclavicular, or axillary adenopathy. Cardiovascular: Pulse apically and peripherally regular, no murmur, no signs of failure. Hematologic: No epistaxis or ecchymoses. Abdominal: Obese without tenderness. Pulmonary/Chest: Clear lung ridley.. Musculoskeletal: Oa findings upper and lower extremities. Nonantalgic gait. Neurological: Improved gait, followed commands, mild tremor at rest Psychiatric: Appropriate mood and affect LABS, DIAGNOSTICS: None new since October 04, 2020 labs-once again reviewed. ASSESSMENT: 1. COPD, mild 2. Parkinson's disease 3. Essential hypertension 4. Essential tremor 5. Gastroesophageal reflux disease without esophagitis 6. Seizure disorder 7. Severe alcohol use disorder, in sustained remission 8. Mild cognitive impairment 9. Schizoaffective disorder, bipolar type PLAN: Chart reviewed. Conditions and management discussed with patient. Patient did well with physical therapy which included gait training, neuromuscular re-education, strengthening. Does not see the need once again for walker or cane. Fall prevention measures discussed. Maintaining:: Angiotensin receptor екатерина therapy for hypertension management. As needed albuterol inhaler for COPD management. Anti Parkinson's medications for Parkinson's management. Alpha-екатерина for BPH management. H2 receptor екатерина therapy for GERD management. Anti-platelet therapy for CAD, CVD prophylaxis given this patient's chronic tobacco use and hypertension. Mental health medications as per consulting psychiatrist. Advised: Responsible hydration, nutrition, rest for maintenance of his physical and emotional health. Responsible self management of mental health conditions. Cautious, achievable, wellness routine for the maintenance of his physical and emotional health. Fall precautions-reviewed. Adherence with mental health follow-up visits and psychiatric medication regimen the maintenance of his emotional health. Influenza, pneumococcal, recombinant zoster vaccinations. As noted, current with the SARS-CoV-2 vaccination, including booster. 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 Follow-up with Neurology for Parkinson's management. Becoming current with dental and ocular care visits as clinically indicated. Walking routine for VTE prophylaxis. Not interested once again in nicotine replacement therapy, tobacco wean/cessation recommendations benefits of tobacco cessation and risks of continued tobacco use once again discussed. Full code status. documented in this encounter [facility] 05-02-2021 History of Present illness Narrative Patient ID: Sana Stanley is a 65 y.o. male CC: [facility] History And Physical For Essential Hypertension, COPD, Parkinson's disease, Seizure Disorder, GERD, Essential Tremor, Mild Cognitive Impairment, Alcohol Use Disorder, Severe, In Sustained Remission, BPH, Schizoaffective Disorder, Bipolar Type, Diverticulosis Chief Complaint Patient presents with Hypertension Chronic Obstructive Pulmonary Disease Parkinson's Disease HPI: 65-year-old gentleman with comorbidities as noted recently moved here from a [facility]. Reports medication adherence, facilitated by nursing staff. Denies medication intolerances. Added that his brother came with him from the [facility]. Patient reports that he has 2 sons with whom he has not been in touch with for several years. Reported that he was a former heavy alcohol user and doing well without the alcohol and that his health has recovered. Denies symptoms at rest or with modest exertion of uncontrolled hypertension, hypotension, decompensated COPD. Denies symptoms or signs of decompensated Parkinson's disease. Denies any recent or remote seizures are reported seizures. Denies any warning symptoms of GERD or any recent or remote uncontrolled symptoms of GERD. Reports that tremor under control of. Reports emotionally doing well. Reported he and his brother are very happy being at this facility compared to previous facility. Received COVID vaccination uneventfully, in November, he reported. 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 aspirin EC [address] Take 81 mg by mouth daily. carbidopa-levodopa 50-200 MG Tab CR Take 1 tablet by mouth 2 times daily. faMOTIdine 20 MG tablet Take 20 mg by mouth daily. finasteride 5 MG tablet Take 5 mg by mouth daily. lithium 300 MG capsule Take 300 mg by mouth 2 times daily with meals. losartan 25 MG tablet Take 25 mg by mouth daily. OLANZapine 10 MG tablet Take 10 mg by mouth daily every morning. selegiline 5 MG capsule Take 5 mg by mouth 2 times daily. Tamsulosin HCl 0.4 MG capsule Take 0.4 mg by mouth daily. No current facility-administered medications for this visit. 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 ROS: Review of Systems Constitutional: Negative for fever, chills, or extreme weight change. Cardiovascular: Negative for chest pain, chest pressure, orthopnea or leg swelling. HEENT: Denies postnasal drainage, sore throats, difficulty with hearing or vision Respiratory: Negative for shortness of breath or cough. Gastrointestinal: Negative for pyrosis, dysphagia, odynophagia, melena, hematochezia, constipation or diarrhea. Genitourinary:Negative for dysuria,frequency,urgency. Hematologic: Negative for epistaxis, ecchymoses. Lymphatic: Negative for lumps of the cervical, axillary, or inguinal regions Endocrinologic: Negative for polydipsia polyphagia polyuria Musculoskeletal: Negative for swelling, pain, stiffness Neuro: Negative for numbness, tingling, sensory change or focal weakness. Skin: Negative for rashes or new lesions. Psychiatric: Negative for depression or anxiety. PHYSICAL EXAM: Vitals: 05/03/21 1732 BP: 124/64 Pulse: 88 Temp: 98.2 degrees F (36.8 degrees C) SpO2: 96% Weight: 89.4 kg (197 lb) Constitutional: In no apparent distress. Skin: Skin is warm. No rash noted. HEENT: Noninjected conjunctivae. Neck: Carotid bruit is not present. No mass and no thyromegaly present. Lymphadenopathy: He has no cervical, supraclavicular, or axillary adenopathy. Cardiovascular: Pulse apically and peripherally regular, no murmur, no signs of failure. Hematologic: No epistaxis or ecchymoses. Abdominal: Moderately obese, nontender, nondistended, no appreciable organomegaly, mass, bruits. Pulmonary/Chest: Effort normal and breath sounds normal. No respiratory distress. Musculoskeletal: Mild OA findings diffusely. Nonantalgic gait. Neurological: Cautious gait, followed commands, mildly hearing impaired, resting tremor bilateral upper extremities. Psychiatric: Appropriate mood and affect LABS, DIAGNOSTICS: October 04, 2020 labs reviewed. ASSESSMENT: 1. Essential hypertension 2. COPD, mild 3. Parkinson's disease 4. Seizure disorder 5. Gastroesophageal reflux disease without esophagitis 6. Essential tremor 7. Mild cognitive impairment 8. Severe alcohol use disorder, in sustained remission 9. Benign prostatic hyperplasia without lower urinary tract symptoms 10. Schizoaffective disorder, bipolar type PLAN: Chart and medications and outpatient visit from previous physician reviewed. Conditions and management discussed with patient. Maintain: Angiotensin receptor екатерина therapy for hypertension management. As needed albuterol inhaler for COPD management. Anti Parkinson's medications for Parkinson's management. Alpha-екатерина for BPH management. H2 receptor екатерина therapy for GERD management. Anti-platelet therapy for CAD, CVD prophylaxis given this patient's chronic tobacco use and hypertension. Mental health medications as per consulting psychiatrist. Discussed and advised: Responsible hydration, nutrition, rest for maintenance of his physical and emotional health. Responsible self management of mental health conditions. Initiation and maintenance of a cautious, achievable, wellness routine for the maintenance of his physical and emotional health. Fall precautions-discussed in detail. Adherence with mental health follow-up visits and psychiatric medication regimen the maintenance of his emotional health. Influenza, pneumococcal, recombinant zoster vaccinations. As noted, current with the SARS-CoV-2 vaccination. 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 Follow-up with neurology for Parkinson's management. Getting current with dental and ocular care visits as clinically indicated. Walking routine for VTE prophylaxis. Declines nicotine replacement therapy, tobacco wean/cessation recommendations benefits of tobacco cessation and risks of continued tobacco use once again discussed. Full code status. Patient was welcomed to this facility and was thanked for allowing this facility/nursing staff and this provider/our practice the opportunity to provide his medical care. documented in this encounter [facility] Evaluation note Diagnosis COPD, mild- Primary Chronic airway obstruction, not elsewhere classified Parkinson's disease Paralysis agitans Essential hypertension Unspecified essential hypertension Essential tremor Essential and other specified forms of tremor Gastroesophageal reflux disease without esophagitis Esophageal reflux Seizure disorder Unspecified epilepsy without mention of intractable epilepsy Severe alcohol use disorder, in sustained remission Mild cognitive impairment Mild cognitive impairment, so stated Schizoaffective disorder, bipolar type Schizoaffective disorder, unspecified condition [facility] Diagnosis Rolon's palsy- Primary COPD, mild Chronic airway obstruction, not elsewhere classified Cigarette nicotine dependence, uncomplicated Tobacco use disorder Gastroesophageal reflux disease without esophagitis Esophageal reflux Parkinson's disease Paralysis agitans Essential tremor Essential and other specified forms of tremor Seizure disorder Unspecified epilepsy without mention of intractable epilepsy Benign prostatic hyperplasia without lower urinary tract symptoms Severe alcohol use disorder, in sustained remission Essential hypertension Unspecified essential hypertension Mild cognitive impairment Mild cognitive impairment, so stated Schizoaffective disorder, bipolar type Schizoaffective disorder, unspecified condition Unsteady gait Abnormality of gait [facility] Diagnosis Essential hypertension- Primary Unspecified essential hypertension COPD, mild Chronic airway obstruction, not elsewhere classified Parkinson's disease Paralysis agitans Seizure disorder Unspecified epilepsy without mention of intractable epilepsy Gastroesophageal reflux disease without esophagitis Esophageal reflux Essential tremor Essential and other specified forms of tremor Mild cognitive impairment Mild cognitive impairment, so stated Severe alcohol use disorder, in sustained remission Benign prostatic hyperplasia without lower urinary tract symptoms Schizoaffective disorder, bipolar type Schizoaffective disorder, unspecified condition documented in this encounter [facility] [facility] Diagnosis Grief reaction- Primary Adjustment disorder with depressed mood Hypertensive heart disease without heart failure Unspecified hypertensive heart disease without heart failure COPD, mild Chronic airway obstruction, not elsewhere classified Cigarette nicotine dependence, uncomplicated Tobacco use disorder Gastroesophageal reflux disease without esophagitis Esophageal reflux Parkinson's disease Paralysis agitans Seizure disorder Unspecified epilepsy without mention of intractable epilepsy Benign prostatic hyperplasia without lower urinary tract symptoms Severe alcohol use disorder, in sustained remission Mild cognitive impairment Mild cognitive impairment, so stated Schizoaffective disorder, bipolar type Schizoaffective disorder, unspecified condition documented in this encounter [employer] Phone: Evaluation note* Diagnosis Acute hypoxemic respiratory failure (HCC)- Primary COPD exacerbation (HCC) Obstructive chronic bronchitis with exacerbation Influenza with respiratory manifestation other than pneumonia Influenza with other respiratory manifestations Acute on chronic respiratory failure with hypoxia (HCC) Cigarette nicotine dependence, uncomplicated Tobacco use disorder COPD, mild (HCC) Chronic airway obstruction, not elsewhere classified Schizoaffective disorder, bipolar type (HCC) Schizoaffective disorder, unspecified condition Essential tremor Essential and other specified forms of tremor documented in this encounter [employer] Phone: evaluation note* Diagnosis Influenza A H1N1 infection- Primary Influenza due to identified 2008 H1N1 influenza virus with other respiratory manifestations COPD with acute exacerbation Obstructive chronic bronchitis with exacerbation Dependence on continuous supplemental oxygen Physical debility Debility, unspecified Hypertensive heart disease without heart failure Unspecified hypertensive heart disease without heart failure Cigarette nicotine dependence, uncomplicated Tobacco use disorder Seizure disorder Unspecified epilepsy without mention of intractable epilepsy Gastroesophageal reflux disease without esophagitis Esophageal reflux Parkinson's disease Paralysis agitans Severe alcohol use disorder, in sustained remission Benign prostatic hyperplasia without lower urinary tract symptoms documented in this encounter [employer] Phone: Evaluation note* Diagnosis Feared complaint without diagnosis- Primary Person with feared complaint in whom no diagnosis was made Essential hypertension Unspecified essential hypertension documented in this encounter [employer] Phone: evaluation note* Diagnosis Nonspecific abdominal pain- Primary documented in this encounter [employer] Phone: evaluation note* Diagnosis Lethargy- Primary Other malaise and fatigue Hypertensive heart disease without heart failure Unspecified hypertensive heart disease without heart failure Dizziness Dizziness and giddiness Generalized weakness Other malaise and fatigue COPD, mild Chronic airway obstruction, not elsewhere classified Physical debility Debility, unspecified Seizure disorder Unspecified epilepsy without mention of intractable epilepsy Gastroesophageal reflux disease without esophagitis Esophageal reflux Parkinson's disease Paralysis agitans Severe alcohol use disorder, in sustained remission Cigarette nicotine dependence in remission Tobacco use disorder documented in this encounter [employer] Phone: Evaluation note* Diagnosis Acute pain of right hip- Primary Pain in joint, pelvic region and thigh Osteoarthritis of right hip, unspecified osteoarthritis type documented in this encounter [employer] Phone: [id number] note* Diagnosis Intractable chronic migraine without aura and without status migrainosus- Primary Chronic migraine without aura, with intractable migraine, so stated, without mention of status migrainosus Mass of joint of right shoulder Hypertensive heart disease without heart failure Unspecified hypertensive heart disease without heart failure COPD, mild Chronic airway obstruction, not elsewhere classified Cigarette nicotine dependence in remission Tobacco use disorder Seizure disorder Unspecified epilepsy without mention of intractable epilepsy Gastroesophageal reflux disease without esophagitis Esophageal reflux Parkinson's disease Paralysis agitans Physical debility Debility, unspecified Severe alcohol use disorder, in sustained remission documented in this encounter [employer] Phone: Evaluation note* Diagnosis Hypertensive heart disease without heart failure- Primary Unspecified hypertensive heart disease without heart failure COPD, mild Chronic airway obstruction, not elsewhere classified Seizure disorder Unspecified epilepsy without mention of intractable epilepsy Parkinson's disease Paralysis agitans Cigarette nicotine dependence in remission Tobacco use disorder Gastroesophageal reflux disease without esophagitis Esophageal reflux Severe alcohol use disorder, in sustained remission documented in this encounter [employer] Phone: Evaluation note* Diagnosis Parkinson disease (HCC)- Primary Paralysis agitans General weakness Other malaise and fatigue documented in this encounter [employer] note* Diagnosis Acute psychosis- Primary Unspecified psychosis documented in this encounter [employer] Phone: Evaluation note* Diagnosis Hypertensive heart disease without heart failure- Primary Unspecified hypertensive heart disease without heart failure COVID-19 virus infection COPD, mild Chronic airway obstruction, not elsewhere classified Seizure disorder Unspecified epilepsy without mention of intractable epilepsy Parkinson's disease without dyskinesia or fluctuating manifestations Cigarette nicotine dependence in remission Tobacco use disorder Gastroesophageal reflux disease without esophagitis Esophageal reflux Severe alcohol use disorder, in sustained remission Intractable chronic migraine without aura and without status migrainosus Chronic migraine without aura, with intractable migraine, so stated, without mention of status migrainosus Mild cognitive impairment Mild cognitive impairment, so stated documented in this encounter [employer] Phone: Evaluation note* Diagnosis Hypertensive heart disease without heart failure- Primary Unspecified hypertensive heart disease without heart failure Cigarette nicotine dependence in remission Tobacco use disorder Gastroesophageal reflux disease without esophagitis Esophageal reflux COPD, mild Chronic airway obstruction, not elsewhere classified Parkinson's disease without dyskinesia or fluctuating manifestations Seizure disorder Unspecified epilepsy without mention of intractable epilepsy Severe alcohol use disorder, in sustained remission Mild cognitive impairment Mild cognitive impairment, so stated documented in this encounter [employer] Phone: Evaluation note* Diagnosis Chest pain, unspecified type- Primary [facility] Work Phone: Evaluation note* Diagnosis Chronic obstructive pulmonary disease, unspecified COPD type (CMS-HCC)- Primary Parkinson's disease, unspecified whether dyskinesia present, unspecified whether manifestations fluctuate ([facility]) Mild cognitive impairment Mild cognitive impairment, so stated Wernicke's encephalopathy Other and unspecified manifestations of thiamine deficiency [facility] Diagnosis Parkinson's disease, unspecified whether dyskinesia present, unspecified whether manifestations fluctuate (CMS-HCC)- Primary Wernicke's encephalopathy Other and unspecified manifestations of thiamine deficiency Chronic obstructive pulmonary disease, unspecified COPD type (CMS-HCC) Extrapyramidal and movement disorder, unspecified [facility] Diagnosis Parkinson's disease, unspecified whether dyskinesia present, unspecified whether manifestations fluctuate (CMS-HCC)- Primary Schizoaffective disorder, unspecified type (CMS-HCC) Wernicke's encephalopathy Other and unspecified manifestations of thiamine deficiency Chronic obstructive pulmonary disease, unspecified COPD type ([facility]) [facility] Diagnosis Wernicke's encephalopathy- Primary Other and unspecified manifestations of thiamine deficiency Chronic obstructive pulmonary disease, unspecified COPD type ([facility]) Parkinson's disease, unspecified whether dyskinesia present, unspecified whether manifestations fluctuate ([facility]) documented [facility] encounter [facility] Diagnosis Schizoaffective disorder, bipolar type ([facility])- Primary Schizoaffective disorder, unspecified condition Wernicke's encephalopathy Other and unspecified manifestations of thiamine deficiency Chronic obstructive pulmonary disease, unspecified COPD type ([facility]) Parkinson's disease, unspecified whether dyskinesia present, unspecified whether manifestations fluctuate ([facility]) Nicotine dependence, cigarettes, uncomplicated Extrapyramidal and movement disorder, unspecified Iliotibial band syndrome, unspecified laterality Stage 2 chronic kidney disease due to benign hypertension Class 1 obesity due to excess calories with serious comorbidity in adult, unspecified BMI Convulsions, unspecified convulsion type ([facility]) Hyperplasia of prostate without lower urinary tract symptoms (LUTS) Unspecified hyperplasia of prostate without urinary obstruction and other lower urinary tract symptoms (LUTS) White matter disease Gastroesophageal reflux disease, unspecified whether esophagitis present Mild cognitive impairment Mild cognitive impairment, so stated documented in this encounter [facility]* Diagnosis Wernicke's encephalopathy- Primary Other and unspecified manifestations of thiamine deficiency Chronic obstructive pulmonary disease, unspecified COPD type ([facility]) Parkinson's disease, unspecified whether dyskinesia present, unspecified whether manifestations fluctuate ([facility]) Stage 2 chronic kidney disease due to benign hypertension Mild cognitive impairment Mild cognitive impairment, so stated documented in this encounter [facility]* Diagnosis Wernicke's encephalopathy- Primary Other and unspecified manifestations of thiamine deficiency Parkinson's disease, unspecified whether dyskinesia present, unspecified whether manifestations fluctuate ([facility]) BPH with lower urinary tract symptoms without urinary obstruction documented in this encounter [facility]* Diagnosis Wernicke's encephalopathy- Primary Other and 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, unspecified Parkinson's disease, unspecified whether dyskinesia present, unspecified whether manifestations fluctuate ([facility]) [facility] Diagnosis Parkinson's disease, unspecified whether dyskinesia present, unspecified whether manifestations fluctuate ([facility])- Primary Mild cognitive impairment Mild cognitive impairment, so stated Schizoaffective disorder, unspecified type ([facility]) Wernicke's encephalopathy Other and unspecified manifestations of thiamine deficiency [facility] Diagnosis Wernicke's encephalopathy- Primary Other and unspecified manifestations of thiamine deficiency Parkinson's disease, unspecified whether dyskinesia present, unspecified whether manifestations fluctuate ([facility]) Chronic obstructive pulmonary disease, unspecified COPD type ([facility]) Stage 2 chronic kidney disease due to benign hypertension [facility] Diagnosis Chronic obstructive pulmonary disease, unspecified COPD type ([facility])- Primary Protein-calorie malnutrition, unspecified severity ([facility]) Parkinson's disease, unspecified whether dyskinesia present, unspecified whether manifestations fluctuate ([facility]) Mild cognitive impairment Mild cognitive impairment, so stated documented in this encounter [facility]* Diagnosis Parkinson's disease, unspecified whether dyskinesia present, unspecified whether manifestations fluctuate ([facility])- Primary Wernicke's encephalopathy Other and unspecified manifestations of thiamine deficiency Mild cognitive impairment Mild cognitive impairment, so stated Chronic obstructive pulmonary disease, unspecified COPD type ([facility]) Protein-calorie malnutrition, unspecified severity ([facility]) [facility]* Diagnosis Wernicke's encephalopathy- Primary Other and 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, unspecified Stage 2 chronic kidney disease due to benign hypertension Schizoaffective disorder, unspecified type ([facility]) documented in this encounter [facility]* Diagnosis Parkinson's disease, unspecified whether dyskinesia present, unspecified whether manifestations fluctuate ([facility])- Primary Chronic obstructive pulmonary disease, unspecified COPD type ([facility]) Wernicke's encephalopathy Other and unspecified manifestations of thiamine deficiency Schizoaffective disorder, unspecified type ([facility]) [facility]* Diagnosis Chronic obstructive pulmonary disease, unspecified COPD type ([facility])- Primary Wernicke's encephalopathy Other and unspecified manifestations of thiamine deficiency Parkinson's disease, unspecified whether dyskinesia present, unspecified whether manifestations fluctuate ([facility]) [facility]* Diagnosis Wernicke's encephalopathy- Primary Other and unspecified manifestations of thiamine deficiency Parkinson's disease, unspecified whether dyskinesia present, unspecified whether manifestations fluctuate (CMS-HCC) Chronic obstructive pulmonary disease, unspecified COPD type (CMS-HCC) [facility]* Diagnosis Wernicke's encephalopathy- Primary Other and unspecified manifestations of thiamine deficiency Cognitive impairment Unspecified persistent mental disorders due to conditions classified elsewhere Schizoaffective disorder, unspecified type (CMS-HCC) Parkinson's disease, unspecified whether dyskinesia present, unspecified whether manifestations fluctuate (CMS-HCC) Chronic obstructive pulmonary disease, unspecified COPD type ([facility]) [facility]* Attachments The following attachments cannot be sent through Care Everywhere. * Diet: DASH (Mozambican) * Hypertension: General Info ([place]oz[place]ican) [facility] [employer] Phone: InstructionsNot on filedocumented in this encounter [facility]ructionsNot on filedocumented in this encounter [facility] System[facility]ructionsNot on filedocumented in this encounter [facility]ructionsNot on filedocumented in this encounter [facility] System[facility]ructionsNot on filedocumented in this encounter [facility] SystemInstructionsNot on filedocumented in this encounter [facility] SystemReason for referral (narrative)* Consultation (Routine) - New Request Specialty Diagnoses / Procedures Referred By Devon hastings Referred To Contact Orthopaedic Surgery Diagnoses Mass of joint of right shoulder Miguel Kessler MD [address] [place] [address] [place] [address] Roshan Gonzalez MD [address] [place] [address] Referral ID Status Reason Start Date Expiration Date V isits Requested Visits Authorized [id number] New Request 04/02/2023 04/26/2024 1 1 [employer] Phone: Reason for referral (narrative)* Consultation (Routine) - New Request Specialty Diagnoses / Procedures Referred By Contac t Referred To Contact Diagnoses Parkinson's disease without dyskinesia or fluctuating manifestations Miguel Kessler MD [address] [place] [address] Beatriz Roche MD [address] [facility] [address] [place] [address] Referral ID Status Reason Start Date Expiration Date V isits Requested Visits Authorized [id number] New Request 10/29/2023 11/22/2024 1 1 [employer] Phone: Summary Purpose Family History No Family History Records FoundNo Family History Records FoundNo Family History Records FoundNo Family History Records FoundNo Family History Records FoundNo Family History Records Found Advance Directives Latest Code Status on File Code Status Date Activated Date Inactivated Comments DNRCC 06/19/2022 8:38 AM This order was created through External Result Entry Latest Code Status on File Code Status Date Activated Date Inactivated Comments Full Code 09/18/2022 8:33 PM Documents on File Type Date Recorded Patient Grants And Contracts Assistant Expl anation ACP-Do Not Resuscitate 09/28/2022 1:42 PM Latest Code Status on File Code Status Date Activated Date Inactivated Comments Full Code 09/18/2022 8:33 PM 09/23/2022 5:11 PM Latest Code Status on File Code Status Date Activated Date Inactivated Comments Full Code 09/18/2022 8:33 PM 09/23/2022 5:11 PM Latest Code Status on File Code Status Date Activated Date Inactivated Comments DNRCC 06/19/2022 8:38 AM This order was created through External Result Entry Documents on File Type Date Recorded Patient Grants And Contracts Assistant Expl anation ACP-Do Not Resuscitate 09/28/2022 1:42 PM Latest Code Status on File Code Status Date Activated Date Inactivated Comments Full Code 09/18/2022 8:33 PM 09/23/2022 5:11 PM Additional Source Comments (unrecognized sect ion and content) No Status Records FoundNo Status Records FoundNo Status Records FoundNo Status Records FoundNo Status Records FoundNo Status Records Found INFORMATION SOURCE (unrecogn ized section and content) DATE CREATED AUTHOR 04/08/2020 [facility] DATE CREATED AUTHOR AUTHOR'S ORGANIZ ATION 10/31/2023 [facility] DATE CREATED AUTHOR AUTHOR'S ORGANIZ ATION 03/04/2024 [facility] DATE CREATED AUTHOR AUTHOR'S ORGANIZ ATION 03/17/2024 [facility] DATE CREATED AUTHOR AUTHOR'S ORGANIZ ATION 08/08/2024 [facility] DATE CREATED AUTHOR AUTHOR'S ORGANIZ ATION 10/01/[address] [facility] Reason for Visit (unrecogniz ed section and content) Reason Comments Hypertension Reason Comments Rolon's Palsy Reason Comments Hypertension Chronic Obstructive Pulmonary Disease Parkinson's Disease Reason Comments Tachycardia Shortness of Breath Reason Comments Flu Reason Comments Abnormal Lab High ammonia Reason Comments Abdominal Pain Diarrhea Reason Comments Lethargy Reason Comments Hip Pain Reason Comments Headache Reason Comments Fatigue Reason Comments Altered mental status Reason Comments COVID-19 Reason Comments Hypertension Reason Comments Chest Pain Specialty Diagnoses / Procedures Referred By Contac t Referred To Contact Diagnoses Chest pain, unspecified type Shortness of breath Abnormal electrocardiogram (ECG) (EKG) Procedures Nuclear stress test with myocardial perfusion Mavis Gonzales MD [address] [address] Referral ID Status Reason Start Date Expiration Date V isits Requested Visits Authorized [id number] Pending Review 02/10/2024 02/09/2025 4 4 Care Teams (unrecognized sec tion and content) Piercing Specialist Relationship Specialty Start Date End Date Miguel Kessler MD 140 [facility] [address] [place] [address] PCP - General Internal Medicine 07/03/22 Piercing Specialist Relationship Specialty Start Date End Date Piyush Keane MD 2010 [facility] [place] [address] PCP - General 12/16/12 Piercing Specialist Relationship Specialty Start Date End Date Miguel Kessler MD 140 [facility] [address] [place] [address] PCP - General Internal Medicine 07/03/22 Piercing Specialist Relationship Specialty Start Date End Date Piyush Keane MD [address] [place] [address] PCP - General 12/16/12 Piercing Specialist Relationship Specialty Start Date End Date Piyush Keane MD [address] [place] [address] PCP - General 12/16/12 Piercing Specialist Relationship Specialty Start Date End Date Miguel Kessler MD 140 [facility] [address] [place] [address] PCP - General Internal Medicine 07/03/22 Piercing Specialist Relationship Specialty Start Date End Date Piyush Keane MD [address] [place] [address] PCP - General 12/16/12 Piercing Specialist Relationship Specialty Start Date End Date Miguel Kessler MD 140 [facility] [address] [place] [address] PCP - General Internal Medicine 07/03/22 Piercing Specialist Relationship Specialty Start Date End Date Miguel Kessler MD 140 [facility] [address] [place] [address] PCP - General Internal Medicine 07/03/22 Piercing Specialist Relationship Specialty Start Date End Date Piyush Keane MD [address] [place] [address] PCP - General 12/16/12 Piercing Specialist Relationship Specialty Start Date End Date Miguel Kessler MD 140 [facility] [address] [place] [address] PCP - General Internal Medicine 07/03/22 Piercing Specialist Relationship Specialty Start Date End Date Miguel Kessler MD 140 [facility] [address] [place] [address] PCP - General Internal Medicine 07/03/22 Piercing Specialist Relationship Specialty Start Date End Date Miguel Kessler MD 140 [facility] [address] [place] [address] PCP - General Internal Medicine 07/03/22 Piercing Specialist Relationship Specialty Start Date End Date Piyush Keane MD [address] [place] [address] PCP - General 12/16/12 Team Status: Inactive Member Role Status Constantine Estevez DO Attending Provider Active Start: September 24, 2024 End: September 24, 2024 Piercing Specialist Relationship Specialty Start Date End Date Piyush Keane MD (Fax) PCP - General 02/05/16 Piercing Specialist Relationship Specialty Start Date End Date Piyush Keane MD (Fax) PCP - General 02/05/16 Piercing Specialist Relationship Specialty Start Date End Date Piyush Keane MD [address] [place] [address] (Fax) PCP - General 02/05/16 Piercing Specialist Relationship Specialty Start Date End Date Piyush Keane MD [address] [place] [address] (Fax) PCP - General 02/05/16 Piercing Specialist Relationship Specialty Start Date End Date Piyush Keane MD [address] [place] [address] (Fax) PCP - General 02/05/16 Piercing Specialist Relationship Specialty Start Date End Date Piyush Keane MD [address] [place] [address] (Fax) PCP - General 02/05/16 Piercing Specialist Relationship Specialty Start Date End Date Piyush Keane MD (Fax) PCP - General 02/05/16 Ordered Prescriptions (unrec ognized section and content) Prescription Sig Dispensed Refills Start Date End Da te amoxicillin-clavulanat e (AUGMENTIN) 875-125 MG per tablet Take 1 tablet by mouth 2 times daily for 7 days 14 tablet 0 09/23/2022 09/30/2022 azithromycin (ZITHROMAX) 250 MG tabletIndications:COPD exacerbation (HCC) Take 1 tablet by mouth See Admin Instructions for 5 days 500mg on day 1 followed by 250mg on days 2 - 5 6 tablet 0 09/23/2022 09/28/2022 predniSONE (DELTASONE) 20 MG tablet Take 2 tablets by mouth daily for 2 days 4 tablet 0 09/24/2022 09/26/2022 Scheduled Active and Recently Administ ered Medications (unrecognized section and content) Medication Order 09/21/2022 09/22/2022 09/23/2022 albuterol sulfate HFA (PROVENTIL;VENTOLIN;PROAI R) 108 (90 Base) MCG/ACT inhaler 2 puff 2 puff, Inhalation, 3 TIMES DAILY, First dose (after last modification) on 09/20/22 at 0800, Until Discontinued, Initiate RT Bronchodilator Protocol: Yes - Inpatient Protocol 0805 (Given - Provider: Freya Marlow RCP)1223 (Given - Provider: Freya Marlow [facility])2202 (Given - Provider: Suzanne Doan [facility]) 0753 (Given - Provider: Shannan Pratt [facility])1156 (Given - Provider: Shannan Pratt [employer])1803 (Given - Provider: Suzanne Doan [facility]) 0900 (Given - Provider: Anjana Ozuna [facility])1233 (Given - Provider: Anjana Ozuna [facility])1999 (Due) aspirin EC tablet 81 mg 81 mg, Oral, DAILY, First dose on 09/19/22 at 0100, Until Discontinued 900 (Given - Provider: Marium Frederick RN) 09 (Given - Provider: Haylee Borges RN) 0841 (Given - Provider: Tracey Smith RN) atorvastatin (LIPITOR) tablet 40 mg 40 mg, Oral, DAILY, First dose on 09/19/22 at 0900, Until Discontinued 900 (Given - Provider: Marium Frederick RN) 09 (Given - Provider: Haylee Borges RN) 0841 (Given - Provider: Tracey Smith RN) enoxaparin Sodium (LOVENOX) injection 30 mg 30 mg, SubCUTAneous, EVERY 12 HOURS, First dose (after last reorder) on 09/19/22 at 0100, Until Discontinued, Indication of Use: Prophylaxis-DVT/PE, Common Side Effects: Bruising and bleeding 0006 (Given - Provider: Wilton Patel RN)1250 (Given - Provider: Marium Frederick RN) 0027 (Given - Provider: Wilton Patel RN)1259 (Given - Provider: Haylee Borges RN) 0100 (Given - Provider: Wilton Patel RN)1421 (Not Given - Provider: Tracey Smith RN - Reason: Patient/family refused) famotidine (PEPCID) tablet 20 mg 20 mg, Oral, DAILY, First dose on 09/19/22 at 0900, Until Discontinued 900 (Given - Provider: Marium Frederick RN) 09 (Given - Provider: Haylee Borges RN) 0841 (Given - Provider: Tracey Smith RN) finasteride (PROSCAR) tablet 5 mg 5 mg, Oral, DAILY, First dose on 09/19/22 at 0900, Until Discontinued, Women should not handle crushed or broken finasteride tablets when they are or may potentially be , due to potential risk to the fetus. 902 (Given - Provider: Marium Frederick RN) 903 (Given - Provider: Haylee Borges RN) 840 (Given - Provider: Tracey Smith RN) lithium (LITHOBID) extended release tablet 300 mg 300 mg, Oral, EVERY 12 HOURS, First dose (after last modification) on 09/19/22 at 0900, Until Discontinued, Maintain adequate fluid and sodium intake 900 (Given - Provider: Marium Frederick RN)2006 (Given - Provider: Wilton Patel RN) 903 (Given - Provider: Haylee Bogres RN)2042 (Given - Provider: Wilton Patel RN) 840 (Given - Provider: Tracey Smith RN)2099 (Due) losartan (COZAAR) tablet 25 mg 25 mg, Oral, DAILY, First dose on 09/19/22 at 0900, Until Discontinued 900 (Given - Provider: Marium Frederick RN) 902 (Given - Provider: Haylee Borges RN) 840 (Given - Provider: Tracey Smith RN) mometasone-formoterol (DULERA) 200-5 MCG/ACT inhaler 2 puff 2 puff, Inhalation, 2 TIMES DAILY, First dose on 09/19/22 at 0800, Until Discontinued, Rinse mouth out with water (without swallowing) after every dose. 08 (Given - Provider: Freya Marlow RCP)2201 (Given - Provider: Suzanne Doan RCP) 075 (Given - Provider: Shannan Pratt RCP)180 (Given - Provider: Suzanne Doan RCP) 09 (Given - Provider: Anjana Ozuna RCP)1999 (Due) OLANZapine (ZYPREXA) tablet 10 mg 10 mg, Oral, NIGHTLY, First dose on Wed09/18/22 at 2100, Until Discontinued 2006 (Given - Provider: Wilton Patel RN) 2042 (Given - Provider: Wilton Patel RN) 2100 (Due) oseltamivir (TAMIFLU) capsule 75 mg (COMPLETED) 75 mg, Oral, 2 TIMES DAILY, 10 doses, First dose on Wed09/18/22 at 2100, Last dose on Wed09/23/22 at 0900 09 (Given - Provider: Marium Frederick RN)2006 (Given - Provider: Wilton Patel RN) 902 (Given - Provider: Haylee Borges RN)2042 (Given - Provider: Wilton Patel RN) 08 (Given - Provider: Tracey Smith RN) predniSONE (DELTASONE) tablet 40 mg 40 mg, Oral, DAILY, First dose on Wed09/20/22 at 0900, Until Discontinued 900 (Given - Provider: Marium Frederick RN) 902 (Given - Provider: Haylee Borges RN) 08 (Given - Provider: Tracey Smith RN) selegiline (ELDEPRYL) capsule 5 mg 5 mg, Oral, 2 TIMES DAILY WITH MEALS, First dose (after last reorder) on Wed09/19/22 at 0800, Until Discontinued, Avoid aged, smoked, or fermented foods including cheese, sour cream, soy sauce, sauerkraut, yogurt, sausage, pepperoni, salami, and dried fruit. Limit caffeine. 0901 (Given - Provider: Marium Frederick RN)1719 (Given - Provider: Marium Frederick RN) 09 (Given - Provider: Haylee Borges RN)1641 (Given - Provider: Haylee Borges RN) 0830 (Given - Provider: Tracey Smith RN)1700 (Due) sodium chloride flush 0.9 % injection 5-40 mL 5-40 mL, IntraVENous, EVERY 12 HOURS SCHEDULED (2 times per day), First dose on Wed09/18/22 at 2100, Until Discontinued, For Line Patency: Peripheral IV = 5 mL; Midline or Central Line = 10 mL/lumen. If following IV push medication, administer flush at same rate as the IV push. Flush volume is determined by type of infusion therapy being given. For non-viscous solutions use: Peripheral IV = 5 mL Midline or Central Line = 10 mL/lumen For viscous solutions (i.e. blood components, parenteral nutrition, contrast media, or after obtaining blood sample) use: Peripheral IV = 10 mL Midline or Central Line = 20 mL/lumen 907 (Given - Provider: Marium Frederick RN)2006 (Given - Provider: Wilton Patel RN) 903 (Not Given - Provider: Haylee Borges RN - Reason: IV Fluid Infusing)2044 (Given - Provider: Wilton Patel RN) 922 (Given - Provider: Tracey Smith RN)2099 (Due) tamsulosin (FLOMAX) capsule 0.4 mg 0.4 mg, Oral, DAILY, First dose on Wed09/19/22 at 0900, Until Discontinued, Do not crush or break. 903 (Given - Provider: Marium Frederick RN) 903 (Given - Provider: Haylee Borges RN) 840 (Given - Provider: Tracey Smith RN) PRN Medication Order 09/21/2022 09/22/2022 09/23/2022 0.9 % sodium chloride infusion IntraVENous, at 5-250 mL/hr, PRN, if patient receiving piggyback infusions and maintenance fluids are not ordered OR KVO fluids to protect IV site / prevent frequent line interruptions/ long duration, Starting on Wed09/18/22 at 2032, For piggyback infusion, administer at same rate as piggyback for a total of 25 mL. Enter 25 mL into dose field and piggyback rate into rate field of order. If piggyback is infusing at a rate less than 100 mL/hr, enter 25 mL into dose field and 100 mL/hr into rate field of order. For KVO fluids, enter rate of 20 mL/hr or less into rate field of order. acetaminophen (TYLENOL) suppository 650 mg(Linked Group 1) 650 mg, Rectal, EVERY 6 HOURS PRN, Starting on Wed09/18/22 at 2032, Until Discontinued, Pain Mild (1-3), Fever, For temp greater than 100.4 F (38 C), Administer if oral route cannot be used. 1831 (See Alternative - Provider: Vidya Estrada RN) 99 (See Alternative - Provider: Wilton Patel RN) acetaminophen (TYLENOL) tablet 650 mg(Linked Group 1) 650 mg, Oral, EVERY 6 HOURS PRN, Starting on Wed09/18/22 at 2032, Until Discontinued, Pain Mild (1-3), Fever, For temp greater than 100.4 F (38 C), Maximum dose of acetaminophen is 4000 mg from all sources in 24 hours. 183 (Given - Provider: Vidya Estrada, RN) 99 (Given - Provider: Wilton Patel, RN) iopamidol (ISOVUE-370) 76 % injection 80 mL (COMPLETED) 80 mL, IntraVENous, IMG ONCE PRN, 1 dose, Starting on Wed09/23/22 at 0942, Until Wed09/23/22 at 0942, Other 09 (Given - Provider: Ruth Herbert) ipratropium-albuterol (DUONEB) nebulizer solution 1 ampule 1 ampule, Inhalation, EVERY 4 HOURS PRN, Starting on Wed09/18/22 at 2032, Until Discontinued, Shortness of Breath, Initiate RT Bronchodilator Protocol: Yes - ED protocol 1221 (Not Given - Provider: Freya Marlow RCP - Reason: Other - Comment: scanned wrong med. pt. was given mdi) magnesium sulfate 2000 mg in 50 mL IVPB premix 2,000 mg, IntraVENous, at 25 mL/hr, Administer over 2 Hours, PRN, Other, Magnesium Replacement, Starting on Wed09/18/22 at 2032, Mg Lab Replacement Action 1.4-1.6 2 gram IVPB x 1 doses (2 grams total) 1.0-1.3 2 gram IVPB x 2 doses (4 grams total) Less than 1.0 CALL PHYSICIAN and 2 gram IVPB x 2 doses (4 grams total) Infuse at 1 gram/hr. Repeat Mag level next AM. Not for use in Patients with CrCl less than 30 mL/min. ondansetron (ZOFRAN) injection 4 mg(Linked Group 2) 4 mg, IntraVENous, EVERY 6 HOURS PRN, Starting on Wed09/18/22 at 2032, Until Discontinued, Nausea, Vomiting, Administer if oral route cannot be used. ondansetron (ZOFRAN-ODT) disintegrating tablet 4 mg(Linked Group 2) 4 mg, Oral, EVERY 8 HOURS PRN, Starting on Wed09/18/22 at 2032, Until Discontinued, Nausea, Vomiting polyethylene glycol (GLYCOLAX) packet 17 g 17 g, Oral, DAILY PRN, Starting on Wed09/18/22 at 2032, Until Discontinued, Constipation, First line therapy for constipation potassium bicarb-citric acid (EFFER-K) effervescent tablet 40 mEq(Linked Group 3) 40 mEq, Oral, PRN, Starting on Wed09/18/22 at 2032, Until Discontinued, Per Potassium Replacement Protocol, Administer as alternative if patient unable to tolerate oral tablet. K Lab Replacement Action 3.1 to 3.5 40 mEq ORAL x 1 Under 3.1 Refer to IV replacement protocol Recheck K level in AM. Protocol not for use in patients with CrCl less than 30 mL/min. Do not chew or crush. Dissolve flavored tablets completely in 3 to 4 ounces of cold water; unflavored tablets may be dissolved in 3 to 4 ounces of cold juice. Patient to sip slowly over a 5 to 10 minute period. May further dilute if GI adverse effects occur. potassium chloride (KLOR-CON M) extended release tablet 40 mEq(Linked Group 3) 40 mEq, Oral, PRN, Starting on Wed09/18/22 at 2032, Until Discontinued, Potassium Replacement, May give alternative linked oral order (ordered as effervescent, packet, or liquid solution) if patient unable to tolerate tablet. K Lab Replacement Action 3.1 to 3.5 40 mEq ORAL x 1 Under 3.1 Refer to IV replacement protocol Recheck K level in AM. Protocol not for use in patients with CrCl less than 30 mL/min. potassium chloride 10 mEq/100 mL IVPB (Peripheral Line)(Linked Group 3) For doses greater than 10 mEq, change frequency to every one hour for x number of doses., 10 mEq, IntraVENous, PRN, Starting on Wed09/18/22 at 2032, Until Discontinued, at 100 mL/hr, Potassium Replacement, K Lab Replacement Action 2.7 to 3.0 10 mEq IVPB x 6 doses (60 mEq Total) Under 2.7 CALL PROVIDER and administer 10 mEq IVPB x 6 doses (60 mEq Total) Infuse at 10 mEq/hr. Repeat Potassium lab 1 hour after final administration. Protocol not for use in patients with CrCl less than 30 mL/min. sodium chloride flush 0.9 % injection 5-40 mL 5-40 mL, IntraVENous, PRN, Starting on Wed09/18/22 at 2032, Until Discontinued, Line Care, After every IV line use, For Line Patency: Peripheral IV = 5 mL; Midline or Central Line = 10 mL/lumen. If following IV push medication, administer flush at same rate as the IV push. Flush volume is determined by type of infusion therapy being given. For non-viscous solutions use: Peripheral IV = 5 mL Midline or Central Line = 10 mL/lumen For viscous solutions (i.e. blood components, parenteral nutrition, contrast media, or after obtaining blood sample) use: Peripheral IV = 10 mL Midline or Central Line = 20 mL/lumen Linked Groups Order Group 1: acetaminophen (TYLENOL) tablet 650 mgJump to med 650 mg, Oral, EVERY 6 HOURS PRN, Starting on Wed09/18/22 at 2032, Until Discontinued, Pain Mild (1-3), Fever, For temp greater than 100.4 F (38 C)
Maximum dose of acetaminophen is 4000 mg from all sources in 24 hours.
Or acetaminophen (TYLENOL) suppository 650 mgJump to med 650 mg, Rectal, EVERY 6 HOURS PRN, Starting on Wed09/18/22 at 2032, Until Discontinued, Pain Mild (1-3), Fever, For temp greater than 100.4 F (38 C)
Administer if oral route cannot be used.
Group 2: ondansetron (ZOFRAN-ODT) disintegrating tablet 4 mgJump to med 4 mg, Oral, EVERY 8 HOURS PRN, Starting on Wed09/18/22 at 2032, Until Discontinued, Nausea, Vomiting Or ondansetron (ZOFRAN) injection 4 mgJump to med 4 mg, IntraVENous, EVERY 6 HOURS PRN, Starting on Wed09/18/22 at 2032, Until Discontinued, Nausea, Vomiting
Administer if oral route cannot be used.
Group 3: potassium chloride (KLOR-CON M) extended release tablet 40 mEqJump to med 40 mEq, Oral, PRN, Starting on Wed09/18/22 at 2032, Until Discontinued, Potassium Replacement
May give alternative linked oral order (ordered as effervescent, packet, or liquid solution) if patient unable to tolerate tablet. K Lab Repla cemen t Action 3.1 to 3.5 40 mEq ORAL x 1 Under 3.1 Refer to IV replacement protocol Recheck K level in AM. Protocol not for use in patients with CrCl less than 30 mL/min.
Or potassium bicarb-citric acid (EFFER-K) effervescent tablet 40 mEqJump to med 40 mEq, Oral, PRN, Starting on Wed09/18/22 at 2033, Until Discontinued, Per Potassium Replacement Protocol
Administer as alternative if patient unable to tolerate oral tablet. K Lab Repla cemen t Action 3.1 to 3.5 40 mEq ORAL x 1 Under 3.1 Refer to IV replacement protocol Recheck K level in AM. Protocol not for use in patients with CrCl less than 30 mL/min. Do not chew or crush. Dissolve flavored tablets completely in 3 to 4 ounces of cold water; unflavored tablets may be dissolved in 3 to 4 ounces of cold juice. Patient to sip slowly over a 5 to 10 minute period. May further dilute if GI adverse effects occur.
Or potassium chloride 10 mEq/100 mL IVPB (Peripheral Line)Jump to med For doses greater than 10 mEq, change frequency to every one hour for x number of doses.
10 mEq, IntraVENous, PRN, Starting on Wed09/18/22 at 2033, Until Discontinued, at 100 mL/hr, Potassium Replacement
K Lab Replacement Action 2.7 to 3.0 10 mEq IVPB x 6 doses (60 mEq Total) Under 2.7 CALL PROVIDER and administer 10 mEq IVPB x 6 doses (60 mEq Total) Infuse at 10 mEq/hr. Repeat Potassium lab 1 hour after final administration. Protocol not for use in patients with CrCl less than 30 mL/min.
Scheduled Medication Order 02/18/2023 02/19/2023 02/20/2023 morphine (PF) injection 4 mg (COMPLETED) 4 mg, IntraVENous, ONCE, 1 dose, On Wed02/19/23 at 1745, If oral and IV narcotics ordered, use oral first and only use IV if oral is ineffective or cannot take oral. Do Not give oral and IV within 1 hour of each other unless specifically ordered. 1743 (Given - Provider: Kodi Lyons RN) Continuous Medication Order 02/18/2023 02/19/2023 02/20/2023 0.9 % sodium chloride infusion IntraVENous, at 100 mL/hr, CONTINUOUS, Starting on Wed02/19/23 at 1745 1743 (New Bag - Provider: Cristian Lyons, LOKI)2220 (Stopped - Provider: Deanne Larry RN) PRN Medication Order 02/18/2023 02/19/2023 02/20/2023 iopamidol (ISOVUE-370) 76 % injection 80 mL (COMPLETED) 80 mL, IntraVENous, IMG ONCE PRN, 1 dose, Starting on Wed02/19/23 at 1726, Until Discontinued, Other 1944 (Given - Provider: Carlos Duarte) Scheduled Medication Order 02/22/2023 02/23/2023 02/24/2023 HYDROcodone-acetaminophen (NORCO) 5-325 MG per tablet 1 tablet (COMPLETED) 1 tablet, Oral, ONCE, 1 dose, On 02/24/23 at 1745, Maximum dose of acetaminophen is 4000 mg from all sources in 24 hours. 1730 (Given - Provid er: Ward Foy, LOKI) Scheduled Medication Order 06/09/2023 06/10/2023 06/11/2023 acetaminophen (TYLENOL) tablet 650 mg (COMPLETED) 650 mg, Oral, ONCE, 1 dose, On Wed06/11/23 at 1545, Maximum dose of acetaminophen is 4000 mg from all sources in 24 hours. 1540 (Given - Provid er: Petra Wilkinson RN) PRN Medication Order 02/03/2024 02/04/2024 02/05/2024 iopamidol (ISOVUE-370) 76 % injection 80 mL (COMPLETED) 80 mL, IntraVENous, IMG ONCE PRN, 1 dose, Starting on Wed02/05/24 at 1704, Until Discontinued, Other 1918 (Given - Provid er: Hillary Man) Goals (unrecognized section and content) Goals may be documented in a n alternate sectionNot on filedocumented as of this encounterNot on filedocumented as of this encounterNot on filedocumented as of this encounterNot on filedocumented as of this encounterNot on filedocumented as of this encounterNot on filedocumented as of this encounterNot on filedocumented as of this encounterNot on filedocumented as of this encounterNot on filedocumented as of this encounterNot on filedocumented as of this encounterNot on filedocumented as of this encounterNot on filedocumented as of this encounterNot on filedocumented as of this encounterNot on filedocumented as of this encounterNot on filedocumented as of this encounterNot on filedocumented as of this encounterNot on filedocumented as of this encounter FOR RECORDS PERTAINING TO PATIENTS WHO ARE OR HAVE BEEN ENROLLED IN A CHEMICAL DEPENDENCY/SUBSTANCEABUSE PROGRAM, SOME INFORMATION MAY BE OMITTED. This clinical summary was aggregated from multiple sources. Caution should be exercised in using it in the provision of clinical care. This summary normalizes information from multiple sources, and as a consequence, information in this document may materially change the coding, format and clinical context of patient data. In addition, data may be omitted in some cases. CLINICAL DECISIONS SHOULD BE BASED ON THE PRIMARY CLINICAL RECORDS. [facility] provides no warranty or guarantee of the accuracy or completeness of information in this document.
[2025-05-17 08:09] LABS: Lithium (Eskalith(R)), Serum 0.3 mmol/L (0.5-1.2)
== END 2025-05-16 11:27 | disposition home or self-care (01) ==
LOC: LAB 11:26
PROVIDERS: PCP Family Medicine; Visit Provider Family Medicine
DX: F25.9 Schizoaffective disorder, unspecified (principal)
CPT/HCPCS: 36415; 80178

== ENCOUNTER 2025-07-04 16:00 | Outpatient (REF) | payer MEDICARE, MEDICAID, SELFPAY ==
--- OUTSIDE RECORDS SUMMARY | 2025-07-04 16:08 | XMS_ITS | CCD ---
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 Name Role Phone PIYUSH KEANE Primary Care [...] Provider Piyush Keane MD Primary Care Provider Miguel Kessler MD Primary Care Provider Piyush Keane MD Primary Care Provider Miguel Kessler Unavailable Unavaila ble Manuela Gary Unavailable [phone] Ben Ramires Unavailable MIGUEL KESSLER Primary Care Unavailable MIGUEL KESSLER Attending Unavailable SELF, SELF Referring Unavailable MIGUEL KESSLER Primary Care Unavailable MIGUEL KESSLER Attending Unavailable SELF, SELF Referring Unavailable MIGUEL KESSLER Attending Unavailable SELF, SELF Referring Unavailable CHECO, MIGUEL Kaiser Primary Care Unavailable MIGUEL KESSLER Attending Unavailable SELF, SELF Referring Unavailable CHECO, MIGUEL Kaiser Primary Care Unavailable DAVIS BALES Attending Unavailable MIGUEL KESSLER Primary Care Unavailable JACKOGEDARRELL, MIGUEL Kaiser Primary Care Unavailable MATT CALDWELL Attending Unavailable KALOGEROUMIGUEL Primary Care Unavailable KALOGEROU, MIGUEL Kaiser Attending Unavailable SELF, SELF Referring Unavailable KALOGEROU, MIGUEL Kaiser Primary Care Unavailable KALOGEROU, MIGUEL Kaiser Attending Unavailable SELF, SELF Referring Unavailable Piyush Keane MD Primary Care Provider LAKHWINDER, PIYUSH Multani Primary Care Unavailable ISRRAEL [...] BIRDI, BEN Admitting Unavailable BIRDIBEN Attending Unavailable BIRDLisa, BEN Referring Unavailable MANUELA GARY Consulting Unavailable KALOGEDARRELL, [...] Provider Piyush Keane MD Primary Care Provider Hemeyer MD, Edward J Primary Care Provider [phone] Medications Current Medications Medication Drug Class(es) Dates [...] Start: 04-14-2021 acetaminophen (TYLENOL) 325 MG tablet [id number] 200 actuat albuterol 0.09 mg/actuat metered dose [...] 30 mL/min. nabumetone 750 mg oral tablet (18 sources) Nonsteroidal Anti-inflammator y Drug Start: 02-08-2016 [...] Allowed trihexyphenidyl hydrochloride 5 mg oral tablet (18 sources) Start: 02-08-2016 take 1 tablet by [...] on Wed09/23/22 at 0900 polyethylene glycol 3350 07705 mg powder for oral solution (1 source) [...] unspecified] Onset: 02-05-2024 02-05-2024 Episodic Nutritional deficiencies (16 sources) Deficiency of macronutrients; Translations: [Unspecified protein-calorie malnutrition] Onset: 08-11-2024 08-11-2024 Chronic Nutritional deficiencies (20 sources) Wernicke's disease; Translations: [Wernicke's encephalopathy] Onset: 06-23-2024 10-15-2024 Episodic Osteoarthritis (2 sources) Unilateral primary osteoarthritis, right hip; Translations: [Osteoarthritis of right hip joint] Onset: 01-30-2020 Chronic Other aftercare (1 source) Other penitentiary (current) drug therapy; Translations: [OTH RETORT FORKER CURRENT DRUG THERAPY] Onset: 01-30-2020 Episodic Other aftercare (1 source) 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; Translations: [RETORT FORKER CURRENT USE OF ASPIRIN] Onset: 01-30-2020 Episodic [...] Rolon's palsy; 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] Episodic Other non-traumatic joint disorders (3 sources) [...] Chronic Other nutritional; endocrine; and metabolic disorders (19 sources) Obesity caused by energy imbalance; Translations: [...] Respiratory failure; insufficiency; arrest (adult) (2 sources) Zzbch-fr-kfwpsgi respiratory failure; Translations: [Acute and chronic respiratory [...] Translations: [Dizziness] Onset: 06-16-2019 Episodic Epilepsy; convulsions (19 sources) Seizure; Translations: [Unspecified convulsions] Onset: 06-23-2024 06-23-2024 Episodic Malaise and fatigue (14 sources) Weakness; Translations: [Asthenia] Onset: 06-20-2019 Episodic Other connective tissue disease (19 sources) Iliotibial band friction syndrome; Translations: [Iliotibial band syndrome, unspecified leg] Onset: 06-23-2024 06-23-2024 Episodic Other nervous system disorders (12 sources) Abnormal gait; Translations: [Unsteadiness on feet] Onset: 06-20-2021 06-20-2021 Episodic Other nervous system disorders (20 sources) White matter disease; Translations: [White matter disease, unspecified] Onset: 06-23-2024 06-12-2023 Episodic Other nervous system disorders (3 sources) Impaired cognition; Translations: [Other symptoms and signs involving cognitive functions and awareness] Onset: 06-23-2024 04-20-2025 Episodic Other non-traumatic joint disorders (6 sources) [...] Cx Nom (U) ORGANISM: Proteus mirabilis (O:PROMIR) [place] Count >100,000 Aerobic JAZMYN Charge (NMIC56) ----- [...] RESISTANT TO ALL B-LACTAM DRUGS. PERFORMED BY: [facility] [address] [id number] PATHOLOGIST PRINT CONTROLLER DIANA CAT M.D. Normal [facility] Comment on above: Performed By: #### C UU #### [facility] [address] [id number] [facility] Nuclear stress test with flavia cardial perfusionon [...] is abnormal. The ECG shows sinus rhythm, IT FIELD TECHNICIAN anterior OR age undetermined, non-specific ST-T abnormalities. Stress Findings [...] suggest a low risk of cardiac events. [facility] CV CPACS [facility] Radiology Study observation (narrative) [facility] ANION GAPon 02-05-2024 Anion gap [Moles/Vol] 10.0 mmol/L Normal 8.0-16.0 [facility] Comment on above: Result Comment: ANIO N GAP = Sodium -(Chloride + CO2) Performed By: #### B MP, OSMOL, EGFR1, ANION, CBCWD #### [facility] [address] [place] [address] Anion Gapon 02-05-2024 Anion gap [Moles/Vol] 10.0 mmol/L 8.0 - 16.0 meq/L [facility] Comment on above: ANION GAP = Sodium - (Chloride + CO2) Performed at [facility] [address] [place] [address] BASIC METABOL PANELon 2023 Calcium [Mass/Vol] 9.0 mg/dL Normal 8.5-10.5 [facility] Comment on above: Performed By: #### B MP, OSMOL, EGFR1, ANION, CBCWD #### [facility] [address] [place] [address] Chloride [Moles/Vol] 106 mmol/L Normal 98-111 [facility] Comment on above: Performed By: #### B MP, OSMOL, EGFR1, ANION, CBCWD #### [facility] [address] [place] [address] CO2 [Moles/Vol] 26 mmol/L Normal 23-33 [facility] Comment on above: Performed By: #### B MP, OSMOL, EGFR1, ANION, CBCWD #### [facility] [address] [place] [address] Creatinine [Mass/Vol] 0.7 mg/dL Normal 0.4-1.2 [facility] Comment on above: Performed By: #### B MP, OSMOL, EGFR1, ANION, CBCWD #### [facility] [employer] [address] [place] [address] Glucose [Mass/Vol] 89 mg/dL Normal 70-108 [facility] Comment on above: Performed By: #### B MP, OSMOL, EGFR1, ANION, CBCWD #### [facility] [employer] [address] [place] [address] Potassium [Moles/Vol] 4.5 mmol/L Normal 3.5-5.2 [facility] Comment on above: Performed By: #### B MP, OSMOL, EGFR1, ANION, CBCWD #### [facility] [address] [place] [address] Sodium [Moles/Vol] 142 mmol/L Normal 135-145 [facility] Comment on above: Performed By: #### B MP, OSMOL, EGFR1, ANION, CBCWD #### [facility] [employer] [address] [place] [address] Urea nitrogen [Mass/Vol] 14 mg/dL Normal 7-22 [facility] Comment on above: Performed By: #### B MP, OSMOL, EGFR1, ANION, CBCWD #### [facility] [address] [place] [address] Basic metabolic 2000 panelon 02-05-2024 Calcium [Mass/Vol] 9.0 mg/dL 8.5 - 10. 5 mg/dL [facility] Comment on above: Performed at [facility], [place] Medical [facility] [address] [place] [address] Chloride [Moles/Vol] 106 mmol/L 98 - 111 meq/L [facility] CO2 [Moles/Vol] 26 mmol/L 23 - 33 meq/L [facility] Creatinine [Mass/Vol] 0.7 mg/dL 0.4 - 1.2 mg/dL [facility] Glucose [Mass/Vol] 89 mg/dL 70 - 108 mg/dL [facility] Potassium [Moles/Vol] 4.5 mmol/L 3.5 - 5.2 meq/L [facility] Sodium [Moles/Vol] 142 mmol/L 135 - 145 meq/L [facility] Urea nitrogen [Mass/Vol] 14 mg/dL 7 - 22 mg/dL [facility] Brain Natriuretic Peptideon 02-05-2024 Natriuretic peptide.B prohormone N-Terminal IA [Mass/Vol] 85.8 pg/mL 0.0 - 124.0 pg/mL [facility] Comment on above: Performed at [facility], [place] [address] [place] [address] CALCULATED OSMOLALITYon 01-18 Osmolality [Osmolality] 283.1 mosm/kg Normal 275.0-300.0 [facility] Comment on above: Performed By: #### B MP, OSMOL, EGFR1, ANION, CBCWD #### [address] [address] CBC WITH DIFFERENTIALon 01-18 ABS BASOPHILS 0.0 thou/mm3 Normal 0.0-0.1 [facility] Comment on above: Performed By: #### B MP, OSMOL, EGFR1, ANION, CBCWD #### [address] [address] ABS EOSINOPHILS 0.1 thou/mm3 Normal 0.0-0.4 [facility] Comment on above: Performed By: #### B MP, OSMOL, EGFR1, ANION, CBCWD #### [place] [address] ABS IMMATURE GRANS (IG) 0.01 thou/mm3 Normal 0.00-0.07 [facility] Comment on above: Performed By: #### B MP, OSMOL, EGFR1, ANION, CBCWD #### [place] [address] ABS LYMPHOCYTES 2.4 thou/mm3 Normal 1.0-4.8 [facility] Comment on above: Performed By: #### B MP, OSMOL, EGFR1, ANION, CBCWD #### [place] [address] ABS MONOCYTES 0.6 thou/mm3 Normal 0.4-1.3 [facility] Comment on above: Performed By: #### B MP, OSMOL, EGFR1, ANION, CBCWD #### [place] [address] ABS NEUTROPHILS 3.9 thou/mm3 Normal 1.8-7.7 [facility] Comment on above: Performed By: #### B MP, OSMOL, EGFR1, ANION, CBCWD #### [place] [address] Basophils/100 WBC (Bld) 0.4 % Normal [facility] Comment on above: Performed By: #### B MP, OSMOL, EGFR1, ANION, CBCWD #### [place] [address] Eosinophils/100 WBC (Bld) 2.1 % Normal [facility] Comment on above: Performed By: #### B MP, OSMOL, EGFR1, ANION, CBCWD #### [place] [address] Erythrocyte distribution width (RBC) [Ratio] 13.2 % Normal 11.5-14.5 [facility] Comment on above: Performed By: #### B MP, OSMOL, EGFR1, ANION, CBCWD #### [place] [id number] Hematocrit (Bld) [Volume fraction] 40.9 % Low 42.0-52.0 [facility] Comment on above: Performed By: #### B MP, OSMOL, EGFR1, ANION, CBCWD #### [address] [address] Hemoglobin (Bld) [Mass/Vol] 13.7 g/dL Low 14.0-18.0 [facility] Comment on above: Performed By: #### B MP, OSMOL, EGFR1, ANION, CBCWD #### [address] [address] IMMATURE GRANS (IG) 0.1 % Normal [facility] Comment on above: Performed By: #### B MP, OSMOL, EGFR1, ANION, CBCWD #### [address] [address] Lymphocytes/100 WBC (Bld) 34.0 % Normal [facility] Comment on above: Performed By: #### B MP, OSMOL, EGFR1, ANION, CBCWD #### [address] [address] MCH (RBC) [Entitic mass] 32.5 pg Normal 26.0-33.0 [facility] Comment on above: Performed By: #### B MP, OSMOL, EGFR1, ANION, CBCWD #### [address] [address] MCHC (RBC) [Mass/Vol] 33.5 g/dL Normal 32.2-35.5 [facility] Comment on above: Performed By: #### B MP, OSMOL, EGFR1, ANION, CBCWD #### [facility] [address] [place] [address] MCV (RBC) [Entitic vol] 96.9 fL High 80.0-94.0 [facility] Comment on above: Performed By: #### B MP, OSMOL, EGFR1, ANION, CBCWD #### [facility] [address] [place] [address] Monocytes/100 WBC (Bld) 8.3 % Normal [facility] Comment on above: Performed By: #### B MP, OSMOL, EGFR1, ANION, CBCWD #### [facility] [address] [place] [address] Neutrophils/100 WBC (Bld) 55.1 % Normal [facility] Comment on above: Performed By: #### B MP, OSMOL, EGFR1, ANION, CBCWD #### [address] [address] NRBC 0 /100 wbc Normal [facility] Comment on above: Performed By: #### B MP, OSMOL, EGFR1, ANION, CBCWD #### [address] [address] PLATELET 194 thou/mm3 Normal 130-400 [facility] Comment on above: Performed By: #### B MP, OSMOL, EGFR1, ANION, CBCWD #### [address] [address] Platelet mean volume (Bld) [Entitic vol] 9.5 fL Normal 9.4-12.4 [facility] Comment on above: Performed By: #### B MP, OSMOL, EGFR1, ANION, CBCWD #### [address] [address] RBC 4.22 mill/mm3 Low 4.70-6.10 [facility] Comment on above: Performed By: #### B MP, OSMOL, EGFR1, ANION, CBCWD #### [address] [address] RDW-SD 46.9 fL High 35.0-45.0 [facility] Comment on above: Performed By: #### B MP, OSMOL, EGFR1, ANION, CBCWD #### [facility] [employer] [address] [place] [address] WBC 7.0 thou/mm3 Normal 4.8-10.8 [facility] Comment on above: Performed By: #### B MP, OSMOL, EGFR1, ANION, CBCWD #### [facility] [employer] [address] [place] [address] CBC with Auto Differentialon 02-05-2024 Basophils (Bld) [...] [facility] Comment on above: Performed at [facility] [address] [place] [address] Platelet mean volume (Bld) [Entitic vol] 9.5 fL 9.4 - 12.4 fL [facility] Platelets (Bld) [#/Vol] 194 10*3/uL [facility] RBC (Bld) [#/Vol] 4.22 10*6/uL Low [facility] WBC (Bld) [#/Vol] 7.0 10*3/uL [facility] CTA Chest vessels WO and W c ontrast Sudeep 02-05-2024 1. Mild atelectatic subpleural stranding both lung bases. 2. Mildly aneurysmal ascending thoracic aorta. No dissection. 3. Findings of pulmonary arterial hypertension. This report has been created using voice recognition software. It may contain minor errors which are inherent in voice recognition technology. are inherent in voice recognition technology. [facility] Omeor Chávez MD - 02/05/2024 PROCEDURE: CTA THORACIC [...] technology. are inherent in voice recognition technology. [facility] Radiology Study observation (narrative) [facility] EKG 12-LEADon 02-05-2024 EKG 12-LEAD 65 65 122 82 428 445 45 -[phone] 44 Normal sinus rhythm Left anterior fascicular block Nonspecific ST abnormality Poor R wave progression Abnormal ECG When compared with ECG of 11-JUN-2023 12:31, No significant change was found Confirmed by KAYLEIGH ZHOU MD ([id number]) on 02/05/2024 10:31:32 PM [email or web address] teTime?[id number]&Date=05-02-20 24&Time=15%3a35%3a28 %3a00&TestType=ECG&S ite=3&OutputType=PDF &Ext=PDF Normal [facility] GFR, ESTIMATEDon 02-05-2024 GFR/1.73 sq M.predicted MDRD (S/P/Bld) [Vol rate/Area] mL/min/{1.73_m2} Normal >60 [facility] Comment on above: Pediatric calculator link [...] that affects renal tubular secretion. Performed at [facility] [address] [place] [address] Result Comment: Pedi atric calculator link [email or web address] [...] B MP, OSMOL, EGFR1, ANION, CBCWD #### [address] [place] [id number] HIGH SENSTIVITY TROPONINon 0 02-05-2024 HIGH SENSTIVITY TROPONIN 8 ng/L Normal 0-12 [facility] Comment on above: Result Comment: The high-sensitivity troponin T result should not be compared with other troponin methodologies. Rising or falling high-sensitivity troponin T is significant if >= 6. Performed By: #### B MP, OSMOL, EGFR1, ANION, CBCWD #### [address] [address] HIGH SENSTIVITY TROPONIN 8 ng/L Normal 0-12 [facility] Comment on above: Result Comment: The high-sensitivity troponin T result should not be compared with other troponin methodologies. Rising or falling high-sensitivity troponin T is significant if >= 6. Performed By: #### B MP, OSMOL, EGFR1, ANION, CBCWD #### [place] [address] NT PRO-B NATRIURETIC PEPTIDE on 02-05-2024 Natriuretic peptide B (Bld) [Mass/Vol] 85.8 pg/mL Normal 0.0-124.0 [facility] Comment on above: Performed By: #### N TBNP #### [place] [address] Natriuretic peptide.B prohor lynette [employer] [place] [Mass/Vol]on 02-05-2024 [facility] [employer] ([email or web address]) [employer] No Panel Informationon 02-04 [facility] [employer] Osmolalityon 02-05-2024 Osmolality Calc [Osmolality] 283.1 [facility] [employer] ([email or web address]) [employer] Comment on above: Performed at [facility] [address] [place] [address] Troponinon 02-05-2024 Troponin, High Sensitivity 8 ng/L 0 - 12 ng/L [facility] [employer] ([email or web address]) [employer] Comment on above: The high-sensitivity troponin T result should not be compared with other troponin methodologies. Rising or falling high-sensitivity troponin T is significant if >= 6. Performed at [facility] [employer] [address] [employer]looks ([email or web address]) [employer] Troponin, High Sensitivity 8 ng/L 0 - 12 ng/L [facility] Comment on above: The high-sensitivity troponin T result should not be compared with other troponin methodologies. Rising or falling high-sensitivity troponin T is significant if >= 6. Performed at [facility] [address] [place] [address] XR Chest 2 Viewson 4 1. Lungs [...] which are inherent in voice recognition technology. [facility] Omero Chávez MD - 02/05/2024 [...] which are inherent in voice recognition technology. [facility] Radiology Study observation (narrative) [facility] XR Chest 2 ViewsOrdered By: Omero Chávez on 02-05-2024 [facility] Work Phone: LITHIUM LEVELon 06-23-2023 DATE LAST DOSE see chart Normal [facility] Comment on above: Performed By: #### L ITHL #### [facility] [address] [place] [address] [facility] [place] [Moles/Vol] 0.29 mmol/L Low 0.60-1.20 [facility] Comment on above: Result Comment: Many variables influence therapeutic and toxic ranges; results should be interpreted in conjunction with clinical status of patient. Performed By: #### L ITHL #### [facility] [address] TIME LAST DOSE see chart [facility] Comment on above: Performed By: #### L ITHL #### [facility] [address] [place] [address] LITHIUM LEVELon 06-20-2023 DATE LAST DOSE 06-19-2023 [facility] Comment on above: Performed By: #### L ITHL #### [facility] [address] [place] [address] [place] [Moles/Vol] 0.55 mmol/L Low 0.60-1.20 [facility] Comment on above: Result Comment: Many variables influence therapeutic and toxic ranges; results should be interpreted in conjunction with clinical status of patient. Performed By: #### L ITHL #### [facility] [address] TIME LAST DOSE 0836 [facility] Comment on above: Performed By: #### L ITHL #### [facility] [address] [place] [address] MRI BRAIN W/O CONTRASTon MRI BRAIN W/O CONTRAST Patient Name: Sana Stanley MR #: [id number] Date of : 1955 Gender: M Service [...] collection present. The proximal portions of the platinum of [place] demonstrate normal flow voids. ORBITS: [...] Patient: Sana Stanley Date of Service: 06/18/2023 [facility] Comment on above: Performed By: #### 3 [id number] #### [facility] Medical Imaging Department [address] [place] [address] [phone] LITHIUM LEVELon 06-16-2023 DATE LAST DOSE see chart [facility] Comment on above: Order Comment: Nurse will call when ready Performed By: #### L ITHL #### [facility] [address] [place] [address] [place] [Moles/Vol] 0.69 mmol/L Normal 0.60-1.20 [facility] Comment on above: Order Comment: Nurse will call when ready Result Comment: Many variables influence therapeutic and toxic ranges; results should be interpreted in conjunction with clinical status of patient. Performed By: #### L ITHL #### [facility] [address] TIME LAST DOSE see chart [facility] Comment on above: Order Comment: Nurse will call when ready Performed By: #### L ITHL #### [facility] [address] [place] [address] FOLATE, SERUMon 06-13-2023 Folate [Mass/Vol] ng/mL Normal 4.8-24.2 [facility] Comment on above: Result Comment: Test ing performed by [facility] [address] [place] [address] Performed By: #### F OL1 #### [facility] [address] [place] [address] [place] HEMOGLOBIN A1Con 06-13-2023 Glucose [Mass/Vol] 111 mg/dL Normal 68-114 [facility] Comment on above: Performed By: #### H A1C #### PRINT CONTROLLER: SAÚL Quintero DAMIAN [facility] [address] [place] [address] HbA1c (Bld) [Mass fraction] 5.5 % Normal 4.0-5.6 [facility] Comment on above: Result Comment: Hemo globin A1C level between 5.7% and 6.4% indicates prediabetes. Hemoglobin A1C level greater than or equal to 6.5% indicates diabetes. Hemoglobin A1C method utilizes NGSP/DCCT standardized equation. Performed By: #### H A1C #### PRINT CONTROLLER: SAÚL Quintero DAMIAN [facility] [address] [place] [address] HbA1c (Bld) [Mass fraction]o n 06-13-2023 Average glucose Estimated from glycated hemoglobin (Bld) [Mass/Vol] 111 mg/dL Normal 68 - 114 mg/dL [facility] Other Phone: LIPID PROFILEon 06-13-2023 CARDIAC RISK 3 {ratio} Normal 0-5 [facility] Comment on above: Performed By: #### L IP #### PRINT CONTROLLER: SAÚL Quintero DAMIAN [facility] [address] [place] [address] Cholesterol [Mass/Vol] 110 mg/dL Normal 0-200 [facility] Comment on above: Performed By: #### L IP #### PRINT CONTROLLER: SAÚL Quintero DAMIAN [facility] [address] [place] [address] Cholesterol in LDL [Mass/Vol] 46 mg/dL Normal 0-100 [facility] Comment on above: Performed By: #### L IP #### PRINT CONTROLLER: SAÚL SALGADO [facility] [address] [place] [address] Cholesterol in VLDL [Mass/Vol] 22 mg/dL Normal 0-40 [facility] Comment on above: Performed By: #### L IP #### PRINT CONTROLLER: SAÚL SALGADO [facility] [address] [place] [address] HDL-CHOL 42 mg/dL Normal 40-60 [facility] Comment on above: Result Comment: NCEP Guidelines: HDL < 40 mg/dl is a major risk factor for CHD. HDL > 60 mg/dl is a negative risk factor for CHD. Performed By: #### L IP #### PRINT CONTROLLER: SAÚL SALGADO [facility] [address] [place] [address] Triglyceride [Mass/Vol] 112 mg/dL Normal 0-150 [facility] Comment on above: Performed By: #### L IP #### PRINT CONTROLLER: SAÚL SALGADO [facility] [address] [place] [address] Laboratory - Chemistry and C hemistry - challengeon 06-13-2023 Cobalamin (Vitamin B12) [Mass/Vol] 294 pg/mL 211 - 911 pg/mL [facility] Other Phone: Comment on above: Testing performed by [facility] [address] [place] [address] Folate [Mass/Vol] ng/mL 4.8 - 24.2 ng/mL [facility] Other Phone: Comment on above: Testing performed by [facility] [address] [place] [id number] Laboratory - Hematology and Cell countson 06-13-2023 HbA1c (Bld) [Mass fraction] 5.5 % Normal 4.0 - 5.6 % [facility] Other Phone: Comment on above: Hemoglobin A1C level between 5.7% and 6.4% indicates prediabetes.Hemoglobin A1C level greater than or equal to 6.5% indicates diabetes. Hemoglobin A1C method utilizes NGSP/DCCT standardized equation. Lipid 1996 panelon 3 Cholesterol [Mass/Vol] 110 mg/dL Normal 0 - 200 mg/dL [facility] Other Phone: Cholesterol in HDL [Mass/Vol] 42 mg/dL Normal 40 - 60 mg/dL [facility] Other Phone: Comment on above: NCEP Guidelines: HDL < 40 mg/dl is a major risk factor for CHD. HDL > 60 mg/dl is a negative risk factor for CHD. Cholesterol in LDL [Mass/Vol] 46 mg/dL Normal 0 - 100 mg/dL [facility] Other Phone: Cholesterol in VLDL [Mass/Vol] 22 mg/dL Normal 0 - 40 mg/dL [facility] Other Phone: Cholesterol.total/C holesterol in HDL [Mass ratio] 3 {ratio} Normal 0 - 5 {ratio} [facility] Other Phone: Triglyceride [Mass/Vol] 112 mg/dL Normal 0 - 150 mg/dL [facility] Other Phone: TSH DL <= 0.005 mIU/L Qnon 0 06-13-2023 TSH Qn 2.79 u[IU]/mL Normal 0.27 - 4.20 u[IU]/mL [facility] Other Phone: TSH REFLEX FT4 IF IND.on TSH, ULTRASENSITIVE 2.79 u[IU]/mL Normal 0.27-4.20 [facility] Comment on above: Performed By: #### T SHIF #### PRINT CONTROLLER: SAÚL SALGADO [employer]5 [facility] [address] [place] [address] VITAMIN B12 LEVELon 06-13-20 Cobalamin (Vitamin B12) [Mass/Vol] 294 pg/mL Normal 211-911 [facility] Comment on above: Result Comment: Test ing performed by [facility] [address] [place] [address] Performed By: #### V TB12 #### [facility] [address] [place] [address] [place] COVID-19 PCRon 06-12-2023 COVL Not detected Normal NOT DETECTED [facility] Comment on above: Order Comment: CRIMINAL [employer] LAWYER or Nasal swab in viral transport media. [...] if clinically indicated. Performed By: #### 1 [id number], [id number] #### [facility] [place] [address] INFLUENZA A/B ANTIGEN,DNAon 06-12-2023 FLUAV Ag IA Ql (Nph) Not detected NOT DETECTED [facility] FLUBV Ag IA Ql (Nph) Not detected NOT DETECTED [facility] h Influenza A+Bon 06-12-2023 INFLUAL Not detected Normal NOT DETECTED [facility] Comment on above: Order Comment: [employer]ER or Nasal swab in viral transportmedia. Performed By: #### 1 [id number], [id number] #### [facility] [address] [place] [address] INFLUBL Not detected Normal NOT DETECTED [facility] Comment on above: Order Comment: CR[employer] LAWYER or Nasal swab in viral transportmedia. Performed By: #### 1 [id number], [id number] #### [facility] [address] [facility] [place] [address] SARS-COV-2 PCR-NASOPHARYNGEA Brandon 06-12-2023 SARS-CoV-2 (COVID-19) RNA JAVI+probe Ql (Resp) Not detected NOT DETECTED [facility] Comment on above: Testing was performe d [...] an alternate FDA-approved test if clinically indicated. [facility] ANION GAPon 06-11-2023 Anion gap [Moles/Vol] 6.0 mmol/L Low 8.0-16.0 [facility] Comment on above: Result Comment: ANIO N GAP = Sodium -(Chloride + CO2) Performed By: #### B MP, OSMOL, EGFR1, ANION, CBCWD #### [facility] [address] [place] [address] Anion Gapon 06-11-2023 Anion gap [Moles/Vol] 6.0 mmol/L Low 8.0 - 16.0 meq/L [facility] Comment on above: ANION GAP = Sodium - (Chloride + CO2) Performed at [facility] [address] [place] [address] Anion gap [Moles/Vol]on 05-22 Interpretation and review of laboratory results Abnormal [facility] BASIC METABOL PANELon 2022 Calcium [Mass/Vol] 9.3 mg/dL Normal 8.5-10.5 [facility] Comment on above: Performed By: #### B MP, OSMOL, EGFR1, ANION, CBCWD #### [facility] [address] [place] [address] Chloride [Moles/Vol] 106 mmol/L Normal 98-111 [facility] Comment on above: Performed By: #### B MP, OSMOL, EGFR1, ANION, CBCWD #### [facility] [address] [place] [address] CO2 [Moles/Vol] 27 mmol/L Normal 23-33 [facility] Comment on above: Performed By: #### B MP, OSMOL, EGFR1, ANION, CBCWD #### [facility] [address] [place] [address] Creatinine [Mass/Vol] 0.8 mg/dL Normal 0.4-1.2 [facility] Comment on above: Performed By: #### B MP, OSMOL, EGFR1, ANION, CBCWD #### [facility] [address] [place] [address] Glucose [Mass/Vol] 101 mg/dL Normal 70-108 [facility] Comment on above: Performed By: #### B MP, OSMOL, EGFR1, ANION, CBCWD #### [facility] [address] [place] [address] Potassium [Moles/Vol] 4.7 mmol/L Normal 3.5-5.2 [facility] Comment on above: Performed By: #### B MP, OSMOL, EGFR1, ANION, CBCWD #### [facility] [address] [place] [address] Sodium [Moles/Vol] 139 mmol/L Normal 135-145 [facility] Comment on above: Performed By: #### B MP, OSMOL, EGFR1, ANION, CBCWD #### [facility] [address] [place] [address] Urea nitrogen [Mass/Vol] 14 mg/dL Normal 7-22 [facility] Comment on above: Performed By: #### B MP, OSMOL, EGFR1, ANION, CBCWD #### [facility] [address] [place] [address] Basic metabolic 2000 panelon 06-11-2023 Calcium [Mass/Vol] 9.3 mg/dL 8.5 - 10. 5 mg/dL [facility] Comment on above: Performed at [facility] [place] ion Medical Lab [address] [place] [address] Chloride [Moles/Vol] 106 mmol/L 98 - 111 meq/L [facility] CO2 [Moles/Vol] 27 mmol/L 23 - 33 meq/L [facility] Creatinine [Mass/Vol] 0.8 mg/dL 0.4 - 1.2 mg/dL [facility] Glucose [Mass/Vol] 101 mg/dL 70 - 108 mg/dL [facility] Potassium [Moles/Vol] 4.7 mmol/L 3.5 - 5.2 meq/L [facility] Sodium [Moles/Vol] 139 mmol/L 135 - 145 meq/L [facility] Urea nitrogen [Mass/Vol] 14 mg/dL 7 - 22 mg/dL [facility] CALCULATED OSMOLALITYon 05-22 Osmolality [Osmolality] 278.2 mosm/kg Normal 275.0-300.0 [facility] Comment on above: Performed By: #### B MP, OSMOL, EGFR1, ANION, CBCWD #### [facility] [address] [place] [address] CBC WITH DIFFERENTIALon 05-22 ABS BASOPHILS 0.0 thou/mm3 Normal 0.0-0.1 [facility] Comment on above: Performed By: #### B MP, OSMOL, EGFR1, ANION, CBCWD #### [employer] [address] [place] [address] ABS EOSINOPHILS 0.1 thou/mm3 Normal 0.0-0.4 [facility] Comment on above: Performed By: #### B MP, OSMOL, EGFR1, ANION, CBCWD #### [employer] [address] [place] [address] ABS IMMATURE GRANS (IG) 0.02 thou/mm3 Normal 0.00-0.07 [facility] Comment on above: Performed By: #### B MP, OSMOL, EGFR1, ANION, CBCWD #### [address] [address] ABS LYMPHOCYTES 1.9 thou/mm3 Normal 1.0-4.8 [facility] Comment on above: Performed By: #### B MP, OSMOL, EGFR1, ANION, CBCWD #### [address] [address] ABS MONOCYTES 0.6 thou/mm3 Normal 0.4-1.3 [facility] Comment on above: Performed By: #### B MP, OSMOL, EGFR1, ANION, CBCWD #### [address] [address] ABS NEUTROPHILS 4.8 thou/mm3 Normal 1.8-7.7 [facility] Comment on above: Performed By: #### B MP, OSMOL, EGFR1, ANION, CBCWD #### [address] [address] Basophils/100 WBC (Bld) 0.4 % Normal [facility] Comment on above: Performed By: #### B MP, OSMOL, EGFR1, ANION, CBCWD #### [address] [address] Eosinophils/100 WBC (Bld) 1.1 % Normal [facility] Comment on above: Performed By: #### B MP, OSMOL, EGFR1, ANION, CBCWD #### [facility] [address] [place] [address] Erythrocyte distribution width (RBC) [Ratio] 13.5 % Normal 11.5-14.5 [facility] Comment on above: Performed By: #### B MP, OSMOL, EGFR1, ANION, CBCWD #### [facility] [address] [place] [address] Hematocrit (Bld) [Volume fraction] 44.0 % Normal 42.0-52.0 [facility] Comment on above: Performed By: #### B MP, OSMOL, EGFR1, ANION, CBCWD #### [address] [address] Hemoglobin (Bld) [Mass/Vol] 14.2 g/dL Normal 14.0-18.0 [facility] Comment on above: Performed By: #### B MP, OSMOL, EGFR1, ANION, CBCWD #### [address] [address] IMMATURE GRANS (IG) 0.3 % Normal [facility] Comment on above: Performed By: #### B MP, OSMOL, EGFR1, ANION, CBCWD #### [address] [address] Lymphocytes/100 WBC (Bld) 25.2 % Normal [facility] Comment on above: Performed By: #### B MP, OSMOL, EGFR1, ANION, CBCWD #### [address] [address] MCH (RBC) [Entitic mass] 32.7 pg Normal 26.0-33.0 [facility] Comment on above: Performed By: #### B MP, OSMOL, EGFR1, ANION, CBCWD #### [address] [address] MCHC (RBC) [Mass/Vol] 32.3 g/dL Normal 32.2-35.5 [facility] Comment on above: Performed By: #### B MP, OSMOL, EGFR1, ANION, CBCWD #### [address] [address] MCV (RBC) [Entitic vol] 101.4 fL High 80.0-94.0 [facility] Comment on above: Performed By: #### B MP, OSMOL, EGFR1, ANION, CBCWD #### [address] [address] Monocytes/100 WBC (Bld) 8.5 % Normal [facility] Comment on above: Performed By: #### B MP, OSMOL, EGFR1, ANION, CBCWD #### [address] [address] Neutrophils/100 WBC (Bld) 64.5 % Normal [facility] Comment on above: Performed By: #### B MP, OSMOL, EGFR1, ANION, CBCWD #### [place] [address] NRBC 0 /100 wbc Normal [facility] Comment on above: Performed By: #### B MP, OSMOL, EGFR1, ANION, CBCWD #### [place] [address] PLATELET 200 thou/mm3 Normal 130-400 [facility] Comment on above: Performed By: #### B MP, OSMOL, EGFR1, ANION, CBCWD #### [facility] [address] [place] [address] Platelet mean volume (Bld) [Entitic vol] 9.2 fL Low 9.4-12.4 [facility] Comment on above: Performed By: #### B MP, OSMOL, EGFR1, ANION, CBCWD #### [place] [address] RBC 4.34 mill/mm3 Low 4.70-6.10 [facility] Comment on above: Performed By: #### B MP, OSMOL, EGFR1, ANION, CBCWD #### [place] [address] RDW-SD 50.9 fL High 35.0-45.0 [facility] Comment on above: Performed By: #### B MP, OSMOL, EGFR1, ANION, CBCWD #### [place] [address] WBC 7.5 thou/mm3 Normal 4.8-10.8 [facility] Comment on above: Performed By: #### B MP, OSMOL, EGFR1, ANION, CBCWD #### [facility] [address] [place] [address] CBC with Auto Differentialon 06-11-2023 Basophils (Bld) [#/Vol] 0.0 10*3/uL [facility] Eosinophils Absolute 0.1 [facility] Erythrocyte distribution width (RBC) [Entitic vol] 50.9 fL High 35.0 - 45.0 fL [facility] Immature granulocytes (Bld) [#/Vol] 0.02 10*3/uL [facility] Immature granulocytes/100 WBC (Bld) 0.3 % [facility] Interpretation and review of laboratory results Abnormal [facility] Lymphocytes Absolute 1.9 [facility] Monocytes Absolute 0.6 [facility] Nucleated RBC/100 WBC (Bld) [Ratio] 0 % /100 wbc [facility] Comment on above: Performed at [facility] [address] [place] [address] Platelets (Bld) [#/Vol] 200 10*3/uL [facility] RBC (Bld) [#/Vol] 4.34 10*6/uL Low [facility] Segs Absolute 4.8 [facility] WBC (Bld) [#/Vol] 7.5 10*3/uL [facility] EKG 12-LEADon 06-11-2023 EKG 12-LEAD 79 79 158 80 [phone] Normal sinus rhythm Left axis deviation Abnormal ECG When compared with ECG of 18-SEP-2022 17:04, Ventricular rate has decreased BY 39 BPM Confirmed by CLARENCE BUSTILLO ([id number]) on 06/11/2023 6:42:45 PM [email or web address] teTime?[email or web address] [id number]&Date=11-06-20 23&Time=12%3a31%3a29 %3a00&TestType=ECG&S ite=3&OutputType=PDF &Ext=PDF Normal [facility] GFR, ESTIMATEDon 06-11-2023 GFR/1.73 sq M.predicted MDRD (S/P/Bld) [Vol rate/Area] mL/min/{1.73_m2} Normal >60 [facility] Comment on above: Result Comment: Shayna atric [...] B MP, OSMOL, EGFR1, ANION, CBCWD #### [facility] [employer] [facility] [address] [place] [address] Glomerular Filtration Rate, Estimatedon 06-11-2023 GFR/1.73 sq M.predicted MDRD (S/P/Bld) [Vol rate/Area] - [facility] Comment on above: Pediatric calculator link [...] that affects renal tubular secretion. Performed at [facility] [address] [address] HEPATIC FUNCTION PANELon Albumin [Mass/Vol] 4.1 g/dL Normal 3.5-5.1 [facility] Comment on above: Performed By: #### H EPPA, TSH3, HSTRP, LACDS #### [facility] [employer] [facility] [address] [address] ALP [Catalytic activity/Vol] 93 U/L Normal 38-126 [facility] Comment on above: Performed By: #### H EPPA, TSH3, HSTRP, LACDS #### [facility] [address] [place] [address] ALT [Catalytic activity/Vol] 11 U/L Normal 11-66 [facility] Comment on above: Performed By: #### H EPPA, TSH3, HSTRP, LACDS #### [facility] [address] [place] [address] AST [Catalytic activity/Vol] 15 U/L Normal 5-40 [facility] Comment on above: Performed By: #### H EPPA, TSH3, HSTRP, LACDS #### [employer] [address] [place] [address] Bilirubin [Mass/Vol] 0.4 mg/dL Normal 0.3-1.2 [facility] Comment on above: Performed By: #### H EPPA, TSH3, HSTRP, LACDS #### [facility] [employer] [address] [address] Bilirubin.indirect [Mass/Vol] mg/dL Normal 0.0-0.3 [facility] Comment on above: Performed By: #### H EPPAwilda, TSH3, HSTRP, LACDS #### [address] [address] Protein [Mass/Vol] 6.5 g/dL Normal 6.1-8.0 [facility] Comment on above: Performed By: #### H EPPA, TSH3, HSTRP, LACDS #### [facility] [address] [address] HIGH SENSTIVITY TROPONINon 0 06-11-2023 HIGH SENSTIVITY TROPONIN 8 ng/L Normal 0-12 [facility] Comment on above: Result Comment: The high-sensitivity troponin T result should not be compared with other troponin methodologies. Rising or falling high-sensitivity troponin T is significant if >= 6. Performed By: #### H EPPA, TSH3, HSTRP, LACDS #### [facility] [employer] [address] [address] Hepatic function 2000 panelo n 06-11-2023 Albumin BCG dye [Mass/Vol] 4.1 g/dL 3.5 - 5.1 g/dL [facility] ALP [Catalytic activity/Vol] 93 U/L 38 - 126 U/L [facility] ALT No additional P-5'-P [Catalytic activity/Vol] 11 U/L 11 - 66 U/L [facility] AST [Catalytic activity/Vol] 15 U/L 5 - 40 U/L [facility] Bilirubin [Mass/Vol] 0.4 mg/dL 0.3 - 1.2 mg/dL [facility] Bilirubin.conjugate d [Mass/Vol] mg/dL 0.0 - 0.3 mg/dL [facility] Protein [Mass/Vol] 6.5 g/dL 6.1 - 8.0 g/dL [facility] Comment on above: Performed at [facility] [place] ion Medical Lab [address] [place] [address] LACTIC ACID, SEPSISon 2022 LACTIC ACID, SEPSIS 1.1 mmol/L Normal 0.5-1.9 [facility] Comment on above: Performed By: #### H EPPA, TSH3, HSTRP, LACDS #### [place] [address] Lactate, Sepsison 06-11-2023 Lactic Acid, Sepsis 1.1 mmol/L 0.5 - 1. 9 mmol/L [facility] Comment on above: Performed at [facility] [address] [place] [address] No Panel Informationon 06-11 [facility] Osmolalityon 06-11-2023 Osmolality Calc [Osmolality] 278.2 [facility] Comment on above: Performed at [facility] [address] [place] [address] TSH DL <= 0.005 mIU/L Qnon 0 06-11-2023 TSH Qn 1.040 m[IU]/L [facility] Comment on above: Performed at [facility] [place] [address] [place] [address] TSH THIRD GENERATIONon 06-11 TSH THIRD GENERATION 1.040 uIU/mL Normal 0.400-4.200 [facility] Comment on above: Performed By: #### B MP, OSMOL, EGFR1, ANION, CBCWD #### [place] [address] Troponinon 06-11-2023 Troponin, High Sensitivity 8 ng/L 0 - 12 ng/L [facility] Comment on above: The high-sensitivity troponin T result should not be compared with other troponin methodologies. Rising or falling high-sensitivity troponin T is significant if >= 6. Performed at [facility] [address] [place] [address] URINALYSISon 06-11-2023 Bilirubin Ql (U) Negative Normal NEGATIVE [facility] Comment on above: Performed By: #### U A2 #### [address] [address] CHARACTER CLEAR Normal CLR-SL.CLOUD [facility] Comment on above: Performed By: #### U A2 #### [address] [address] Color (U) YELLOW Normal YELLOW-STRAW [facility] Comment on above: Performed By: #### U A2 #### [facility] [address] [place] [address] Glucose Ql (U) Negative Normal NEGATIVE [facility] Comment on above: Performed By: #### U A2 #### [address] [address] Hemoglobin Ql (U) Negative Normal NEGATIVE [facility] Comment on above: Performed By: #### U A2 #### [address] [address] Ketones Ql (U) Negative Normal NEGATIVE [facility] Comment on above: Performed By: #### U A2 #### [facility] [address] [place] [address] LEUKOCYTES Negative Normal NEGATIVE [facility] Comment on above: Performed By: #### U A2 #### [address] [address] Nitrite Ql (U) Negative Normal NEGATIVE [facility] Comment on above: Performed By: #### U A2 #### [address] [address] pH (U) 7.5 [pH] Normal 5.0 - 9.0 [facility] Comment on above: Performed By: #### U A2 #### [facility] [address] [place] [address] Protein Ql (U) Negative Normal NEGATIVE [facility] Comment on above: Performed By: #### U A2 #### [address] [address] Specific gravity (U) [Rel density] 1.018 Normal 1.002-1.030 [facility] Comment on above: Performed By: #### U A2 #### [facility] [address] [place] [address] Urobilinogen Qn (U) 1.0 {Luis Daniel'U}/dL Normal 0.0 - 1. 0 [facility] Comment on above: Performed By: #### U A2 #### [facility] [address] [place], [place] [id number] Urinalysis dipstick panel Au to test strip (U)on 06-11-2023 Bilirubin Ql (U) Negative NEGATIVE [facility] Character (U) CLEAR CLR-SL.CLOUD [facility] Comment on above: Performed at [facility] [address] [place] [address] Color (U) YELLOW YELLOW-STRAW [facility] Glucose Auto test strip Ql (U) Negative NEGATIVE mg/dl [facility] Hemoglobin Auto test strip Ql (U) Negative NEGATIVE [facility] Ketones Auto test strip Ql (U) Negative NEGATIVE [facility] Leukocyte esterase Auto test strip Ql (U) Negative NEGATIVE [facility] Nitrite Auto test strip Ql (U) Negative NEGATIVE [facility] pH (U) 7.5 [pH] 5.0 - 9.0 [facility] Protein (U) [Mass/Vol] Negative NEGATIVE mg/dl [facility] Specific gravity Refractometry automated (U) [Rel density] 1.018 1.002 - 1.030 [facility] Urobilinogen Ql (U) 1.0 [facility] XR CHEST (2 VW)on 06-11-2023 1. No acute cardiopulmonary finding. 2. Age indeterminate compression fractures seen at T11, T12, and L1. 3. Mild cardiomegaly. This report has been created using voice recognition software. It may contain minor errors which are inherent in voice recognition technology. Final report electronically signed by Dr Milla Dinh on 06/11/2023 12:28 PM [facility] Milla Maloney MD - 06/11/2023 PROCEDURE: XR [...] Dr Milla Dinh on 06/11/2023 12:28 PM [facility] Radiology Study observation (narrative) [facility] XR CHEST (2 VW)Ordered By: Susanne Dinh on 06-11-2023 [facility] Work Phone: CT HEAD WITHOUT CONTRASTon [...] Morfin MD 02/26/2023 4:39 PM CDT Normal [facility] Complete Blood Counton 02-26 Basophils/100 WBC (Bld) 0.6 % Normal 0.0-3.0 [facility] Comment on above: Performed By: #### 1 [id number], [id number], [id number] #### [facility] [address] [place] [address] Eosinophils/100 WBC (Bld) 1.1 % Normal 0.0-4.0 [facility] Comment on above: Performed By: #### 1 [id number], [id number], [id number] #### [facility] [address] [place] [address] Erythrocyte distribution width (RBC) [Ratio] 13.9 % Normal 11.5-14.5 [facility] Comment on above: Performed By: #### 1 [id number], [id number], [id number] #### [facility] [address] [place] [address] Hematocrit (Bld) [Volume fraction] 43.1 % Normal 42.0-52.0 [facility] Comment on above: Performed By: #### 1 [id number], [id number], [id number] #### [facility] [address] [place] [address] Hemoglobin (Bld) [Mass/Vol] 14.6 g/dL Normal 14.0-18.0 [facility] Comment on above: Performed By: #### 1 [id number], [id number], [id number] #### [facility] [address] [place] [address] Lymphocytes/100 WBC (Bld) 27.0 % Normal 17.6-49.6 [facility] Comment on above: Performed By: #### 1 [id number], [id number], [id number] #### [facility] [address] [place] [address] MCH (RBC) [Entitic mass] 31.1 pg Normal 28.0-32.0 [facility] Comment on above: Performed By: #### 1 [id number], [id number], [id number] #### [facility] [address] [place] [address] MCHC (RBC) [Mass/Vol] 33.9 g/dL Normal 33.0-37.0 [facility] [place] Comment on above: Performed By: #### 1 [id number], [id number], [id number] #### [facility] [address] [place] [address] MCV (RBC) [Entitic vol] 91.7 fL Normal 80.0-94.0 [facility] Comment on above: Performed By: #### 1 360427, [id number], [id number] #### [facility] [address] [place] [address] Monocytes/100 WBC (Bld) 6.7 % Normal 4.1-12.4 [facility] Comment on above: Performed By: #### 1 060429, [id number], 9244560 #### [facility] [address] [place] [address] Neutrophils/100 WBC (Bld) 64.6 % Normal 39.4-72.5 [facility] Comment on above: Performed By: #### 1 481423, 9109653, 1075436 #### [facility] [address] [place] [address] PLT 199 thou/cumm Normal 130-400 [facility] Comment on above: Performed By: #### 1 719262, 1465821, 4105396 #### [facility] [address] [place] [address] RBC 4.71 mil/cumm Normal 4.70-6.10 [facility] Comment on above: Performed By: #### 1 306410, 6803497, 9383989 #### [facility] [address] [place] [address] SCAN NO Normal NO [facility] Comment on above: Performed By: #### 1 639197, [id number], [id number] #### [facility] [address] [place] [address] WBC 8.8 thou/cumm Normal 4.8-10.8 [facility] Comment on above: Performed By: #### 1 803297, 1723002, [id number] #### [facility] [address] [place] [address] Comprehensive Metabolic Prof ile Hollis 02-26-2023 Albumin [Mass/Vol] 4.0 g/dL Normal 3.5-5.0 [facility] Comment on above: Performed By: #### 1 623363, 8691721, 3799404 #### [facility] [address] [place] [address] Albumin/Globulin [Mass ratio] 1.2 {ratio} Normal 1.2-1.5 [facility] Comment on above: Performed By: #### 1 419686, 1165687, 9629275 #### [facility] [address] [place] [address] ALP [Catalytic activity/Vol] 90 U/L Normal 38-126 [facility] Comment on above: Performed By: #### 1 536298, 6882645, 8287970 #### [facility] [address] [place] [address] ALT [Catalytic activity/Vol] 23 U/L Normal 10-40 [facility] Comment on above: Performed By: #### 1 952238, 7250687, 2262737 #### [facility] [address] [place] [address] Anion gap [Moles/Vol] 7.4 mmol/L Low 10.0-20.0 [facility] Comment on above: Performed By: #### 1 471231, 4300013, 6813617 #### [facility] [address] [place] [address] AST [Catalytic activity/Vol] 19 U/L Normal 10-42 [facility] Comment on above: Performed By: #### 1 719429, 4633027, 8512129 #### [facility] [address] [place] [address] BILI 0.4 mg/dL Normal 0.3-1.2 [facility] Comment on above: Performed By: #### 1 888694, 1500582, 9447849 #### [facility] [address] [place] [address] Calcium [Mass/Vol] 9.0 mg/dL Normal 8.4-10.2 [facility] Comment on above: Performed By: #### 1 939357, 5973132, 8602658 #### [facility] [address] [place] [address] Chloride [Moles/Vol] 104 mmol/L Normal 98-107 [facility] Comment on above: Performed By: #### 1 060104, 0066766, 9817657 #### [facility] [address] [place] [address] CO2 [Moles/Vol] 33 mmol/L High 22-31 [facility] Comment on above: Performed By: #### 1 951599, 0759025, 0644136 #### [facility] [address] [place] [address] Creatinine [Mass/Vol] 0.9 mg/dL Normal 0.4-1.1 [facility] Comment on above: Performed By: #### 1 890964, 4662218, 6735595 #### [facility] [address] [place] [address] GFR/1.73 sq M.predicted among non-blacks MDRD (S/P/Bld) [Vol rate/Area] mL/min/{1.73_m2} Normal [facility] Comment on above: Result Comment: Claudia mated Glomerular filtration Rate Reference Ranges: GFR, mL/min/1.73m2 >= 60 Adequate 30 - 59 Moderately decreased GFR 15 - 29 Severely decreased GFR <18 Kidney failure (or dialysis) GFR calculated using abbreviated MDRD formula. MDRD equation not suitable for patients who are under 18, have unstable creatinine concentrations Performed By: #### 1 951394, 0107793, 6026632 #### [facility] [address] [place] [address] Globulin (S) [Mass/Vol] 3.3 g/dL Normal 2.9-3.3 [facility] Comment on above: Performed By: #### 1 920972, 6552739, 2243528 #### [facility] [address] [place] [address] Glucose [Mass/Vol] 119 mg/dL Normal 70-126 [facility] Comment on above: Result Comment: Refe rence Range for FASTING patients is 70-100 mg/dL Performed By: #### 1 220187, 6337836, 0639439 #### [facility] [address] [place] [address] Potassium [Moles/Vol] 4.4 mmol/L Normal 3.5-5.1 [facility] Comment on above: Performed By: #### 1 674308, 3324256, 1354936 #### [facility] [address] [place] [address] Protein [Mass/Vol] 7.3 g/dL Normal 6.4-8.3 [facility] Comment on above: Performed By: #### 1 247569, 7188964, 1745905 #### [facility] [address] [place] [address] Sodium [Moles/Vol] 140 mmol/L Normal 136-145 [facility] Comment on above: Performed By: #### 1 240084, 4567719, 7619778 #### [facility] [address] [place] [address] Urea nitrogen [Mass/Vol] 14 mg/dL Normal 7-22 [facility] Comment on above: Performed By: #### 1 859924, 8609735, 4256685 #### [facility] [address] [place] [address] Troponin-HSon 02-26-2023 TROP-HS 3.10 ng/L Normal 0.00-20.00 [facility] Comment on above: Result Comment: Trop onin [...] of troponin results. Performed By: #### 1 139266, 3216418, [id number] #### [facility] [place] [address] Urinalysis w/Reflex C and So n 02-26-2023 Color (U) YELLOW Normal YELLOW [facility] Comment on above: Performed By: #### 1 624548 #### [facility] [place] [address] SG 1.010 Normal 1.010-1.025 [facility] Comment on above: Performed By: #### 1 076788 #### [facility] [place] [address] UABLD Negative Normal NEGATIVE [facility] Comment on above: Performed By: #### 1 709395 #### [facility] [address] [place] [address] UAGLU Negative Normal NEGATIVE [facility] Comment on above: Performed By: #### 1 140725 #### [facility] [address] [place] [address] UAKET Negative Normal NEGATIVE [facility] Comment on above: Performed By: #### 1 462347 #### [facility] [address] [place] [address] UALEUK Negative Normal NEGATIVE [facility] Comment on above: Performed By: #### 1 707254 #### [facility] [address] [place] [address] UANIT Negative Normal NEGATIVE [facility] Comment on above: Performed By: #### 1 017681 #### [facility] [address] [place] [address] UAPH 8.0 Normal 5.0-8.0 [facility] Comment on above: Performed By: #### 1 707776 #### [facility] [address] [place] [address] UAPRO Negative Normal NEGATIVE [facility] Comment on above: Performed By: #### 1 397862 #### [facility] [address] [place] [address] UAURO 1.0 E.U./dL Normal 0.2-1.0 [facility] Comment on above: Performed By: #### 1 291743 #### [facility] [address] [place] [address] UCLAR CLEAR Normal CLEAR [facility] Comment on above: Performed By: #### 1 755879 #### [facility] [address] [place] [address] UMIC NO Normal NO [facility] Comment on above: Performed By: #### 1 642147 #### [facility] [address] [place] [address] Urobilinogen (U) [Mass/Vol] Negative Normal NEGATIVE [facility] Comment on above: Performed By: #### 1 535242 #### [facility] [address] 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 No definite acute fracture. This report has been created using voice recognition software. It may contain minor errors which are inherent in voice recognition technology. Final report electronically signed by Dr. Cristian Antonio on 02/24/2023 4:26 PM [facility] Cristian Warner MD - 02/24/2023 PROCEDURE: XR [...] Dr. Cristian Antonio on 02/24/2023 4:26 PM [employer] Work Phone: Radiology Study observation (narrative) [employer] Work Phone: XR HIP 2-3 VW W PELVIS RIGHT Ordered By: Cristian Antonio on 02-24-2023 [employer] Work Phone: Anion Gapon 02-19-2023 Anion gap [Moles/Vol] 13.0 mmol/L 8.0 - 16.0 meq/L [facility] Comment on above: ANION GAP = Sodium - (Chloride + CO2) Performed at [facility] [address] [place] [address] CBC with Auto Differentialon 02-19-2023 Basophils (Bld) [...] [facility] Comment on above: Performed at [facility] [address] [place] [address] Platelet mean volume (Bld) [Entitic vol] 9.3 fL Low 9.4 - 12.4 fL [facility] Platelets (Bld) [#/Vol] 202 10*3/uL [facility] RBC (Bld) [#/Vol] 4.61 10*6/uL Low [facility] Segs Absolute 6.3 [facility] WBC (Bld) [#/Vol] 9.7 10*3/uL [facility] CT ABDOMEN PELVIS W IV CONTR AST [...] DR CHAPARRITA CAMP on 02/19/2023 8:00 PM [facility] Chaparrita Vega MD - 02/19/2023 PROCEDURE: CT [...] DR CHAPARRITA CAMP on 02/19/2023 8:00 PM [employer] Work Phone: Radiology Study observation (narrative) [employer] Work Phone: CT ABDOMEN PELVIS W IV CONTR AST Additional Contrast? NoneOrdered By: Chaparrita Camp on 02-19-2023 [employer] Work Phone: Comprehensive metabolic 2000 panelon 02-19-2023 Albumin BCG dye [Mass/Vol] 4.2 g/dL 3.5 - 5.1 g/dL [employer] ALP [Catalytic activity/Vol] 103 U/L 38 - 126 U/L [employer] ALT No additional P-5'-P [Catalytic activity/Vol] 19 U/L 11 - 66 U/L [employer] Comment on above: Performed at [facility] [address] [place] [address] AST [Catalytic activity/Vol] 18 U/L 5 - 40 U/L [employer] Bilirubin [Mass/Vol] 0.3 mg/dL 0.3 - 1.2 mg/dL [facility] Calcium [Mass/Vol] 9.1 mg/dL 8.5 - 10. 5 mg/dL [facility] Chloride [Moles/Vol] 104 mmol/L 98 - 111 meq/L [facility] CO2 [Moles/Vol] 22 mmol/L Low 23 - 33 meq/L [facility] Creatinine [Mass/Vol] 0.8 mg/dL 0.4 - 1.2 mg/dL [facility] Glucose [Mass/Vol] 104 mg/dL 70 - 108 mg/dL [facility] Interpretation and review of laboratory results Abnormal [facility] Potassium [Moles/Vol] 4.6 mmol/L 3.5 - 5.2 meq/L [facility] Protein [Mass/Vol] 7.1 g/dL 6.1 - 8.0 g/dL [facility] Sodium [Moles/Vol] 139 mmol/L 135 - 145 meq/L [facility] Urea nitrogen [Mass/Vol] 16 mg/dL 7 - 22 mg/dL [facility] Glomerular Filtration Rate, Estimatedon 02-19-2023 GFR/1.73 sq M.predicted MDRD (S/P/Bld) [Vol rate/Area] - PINF [facility] Comment on above: Pediatric calculator link [...] that affects renal tubular secretion. Performed at [facility] [address] [place] [address] Lipaseon 02-19-2023 Lipase [Catalytic activity/Vol] 39.1 U/L 5.6 - 51.3 U/L [facility] Comment on above: Performed at [facility], [place]) ion [facility] [address] [place] [address] No Panel Informationon 02-19 [facility] Osmolalityon 02-19-2023 Osmolality Calc [Osmolality] 279.0 [facility] Comment on above: Performed at [facility] [place] [address] [place] [address] Troponinon 02-19-2023 Troponin T < 0.010 ng/ml [facility] Comment on above: <0.010 ng/ml Normal [...] an acute or chronic condition. Performed at [facility] [address] [place] [address] Urinalysis dipstick W Reflex Culture panel (U)on 02-19-2023 Bilirubin Ql (U) Negative NEGATIVE [facility] Character (U) CLEAR CLEAR-SL CLOUD [facility] Comment on above: Performed at [facility] [place] [address] [place] [address] Color, UA YELLOW STRAW-YELLOW [facility] Glucose Auto test strip Ql (U) Negative NEGATIVE mg/dl [facility] Hemoglobin Auto test strip Ql (U) Negative NEGATIVE [facility] Ketones Auto test strip Ql (U) Negative NEGATIVE [facility] Nitrite Ql (U) Negative NEGATIVE [facility] pH (U) 6.5 [pH] 5.0 - 9.0 [facility] Protein (U) [Mass/Vol] Negative NEGATIVE [facility] Specific gravity Refractometry automated (U) [Rel density] 1.018 1.002 - 1.030 [facility] Urobilinogen, Urine 1.0 [facility] WBC LM.HPF (Urine sed) [#/Area] Negative NEGATIVE [facility] Ammonia (P) [Mass/Vol]on Ammonia (P) [Moles/Vol] 22 umol/L 11 - 60 umol/L [facility] Comment on above: Performed at [facility] [place] [address] [place], [place] [id number] [place] [address] Anion Gapon 10-14-2022 Anion gap [Moles/Vol] 8.0 mmol/L 8.0 - 16.0 meq/L [facility] Comment on above: ANION GAP = Sodium - (Chloride + CO2) Performed at [facility] [address] [place] [address] Basic metabolic 2000 panelon 10-14-2022 Calcium [Mass/Vol] 9.0 mg/dL 8.5 - 10. 5 mg/dL [facility] Comment on above: Performed at [facility] [place] [address] [place], [place] [id number] Chloride [Moles/Vol] 106 mmol/L 98 - 111 meq/L [facility] CO2 [Moles/Vol] 26 mmol/L 23 - 33 meq/L [facility] Creatinine [Mass/Vol] 0.7 mg/dL 0.4 - 1.2 mg/dL [facility] Glucose [Mass/Vol] 112 mg/dL High 70 - 108 mg/dL [facility] Potassium [Moles/Vol] 4.6 mmol/L 3.5 - 5.2 meq/L [facility] Sodium [Moles/Vol] 140 mmol/L 135 - 145 meq/L [facility] Urea nitrogen [Mass/Vol] 12 mg/dL 7 - 22 mg/dL [facility] CBC with Auto Differentialon 10-14-2022 Basophils (Bld) [#/Vol] 0.0 10*3/uL [facility] Basophils/100 WBC (Bld) 0.3 % [facility] Eosinophils Absolute 0.1 [facility] Eosinophils/100 WBC (Bld) 1.8 % [facility] Erythrocyte distribution width (RBC) [Entitic vol] 46.5 fL High 35.0 - 45.0 fL [facility] Erythrocyte distribution width (RBC) [Ratio] 13.6 % 11.5 - 14.5 % [facility] Hematocrit (Bld) [Volume fraction] 39.6 % Low 42.0 - 52.0 % [facility] Hemoglobin (Bld) [Mass/Vol] 13.3 g/dL Low [facility] Immature granulocytes (Bld) [#/Vol] 0.01 10*3/uL [facility] Immature granulocytes/100 WBC (Bld) 0.1 % [facility] Interpretation and review of laboratory results Abnormal [facility] Lymphocytes Absolute 2.3 [facility] Lymphocytes/100 WBC (Bld) 31.5 % [facility] MCH (RBC) [Entitic mass] 31.1 pg 26.0 - 33.0 pg [facility] MCHC (RBC) [Mass/Vol] 33.6 g/dL [facility] MCV (RBC) [Entitic vol] 92.7 fL 80.0 - 94.0 fL [facility] Monocytes Absolute 0.7 [facility] Monocytes/100 WBC (Bld) 9.1 % [facility] Neutrophils/100 WBC (Bld) 57.2 % [facility] Nucleated RBC/100 WBC (Bld) [Ratio] 0 % /100 wbc [facility] Comment on above: Performed at [facility] [address] [place] [id number] Platelet mean volume (Bld) [Entitic vol] 9.3 fL Low 9.4 - 12.4 fL [facility] Platelets (Bld) [#/Vol] 203 10*3/uL [facility] RBC (Bld) [#/Vol] 4.27 10*6/uL Low [facility] Segs Absolute 4.1 [facility] WBC (Bld) [#/Vol] 7.2 10*3/uL [facility] Glomerular Filtration Rate, Estimatedon 10-14-2022 GFR/1.73 sq M.predicted MDRD (S/P/Bld) [Vol rate/Area] - PINF [facility] Comment on above: Pediatric calculator link [...] that affects renal tubular secretion. Performed at [facility] [address] [place] [address] Hepatic function 2000 panelo n 10-14-2022 Albumin BCG dye [Mass/Vol] 3.8 g/dL 3.5 - 5.1 g/dL [facility] [employer] ALP [Catalytic activity/Vol] 109 U/L 38 - 126 U/L [facility] [employer] ALT No additional P-5'-P [Catalytic activity/Vol] 10 U/L Low 11 - 66 U/L [employer] AST [Catalytic activity/Vol] 16 U/L 5 - 40 U/L [employer] [facility] Bilirubin [Mass/Vol] 0.3 mg/dL 0.3 - 1.2 mg/dL [employer] Bilirubin.conjugate d [Mass/Vol] mg/dL 0.0 - 0.3 mg/dL [employer] Protein [Mass/Vol] 6.7 g/dL 6.1 - 8.0 g/dL [facility] [employer] Comment on above: Performed at [facility] [place] [address] [place] [address] No Panel Informationon 10-14 Interpretation and review of laboratory results Abnormal [facility] Osmolalityon 10-14-2022 Osmolality Calc [Osmolality] 279.9 [facility] [employer] Comment on above: Performed at [facility] [place] [address] [place] [address] Urinalysis dipstick W Reflex Microscopic panel (U)on 10-14-2022 Bacteria, UA NONE SEEN FEW/NONE SEEN [facility] Bilirubin Ql (U) Negative NEGATIVE [facility] Casts LM.LPF (Urine sed) [#/Area] NONE SEEN /lpf [employer] [facility] Character (U) CLEAR CLR-SL.CLOUD [facility] Charcoal LM Ql (Urine sed) NONE SEEN [facility] [employer] Comment on above: Performed at [facility] [address] [place] [address] Color (U) YELLOW YELLOW-STRAW [facility] Crystals LM Ql (Urine sed) NONE SEEN NONE SEEN [facility] Epithelial Cells, UA 0-2 3-5/hpf /hpf [facility] Epithelial cells.renal LM.HPF (Urine sed) [#/Area] NONE SEEN NONE SEEN [facility] Fungi.yeastlike LM Ql (Urine sed) NONE SEEN NONE SEEN [facility] Glucose Auto test strip Ql (U) Negative NEGATIVE mg/dl [facility] Hemoglobin Auto test strip Ql (U) Negative NEGATIVE [facility] Ketones Auto test strip Ql (U) Negative NEGATIVE [facility] Leukocyte esterase Auto test strip Ql (U) Negative NEGATIVE [facility] Nitrite Auto test strip Ql (U) Negative NEGATIVE [facility] pH (U) 6.5 [pH] 5.0 - 9.0 [facility] Protein (U) [Mass/Vol] Negative NEGATIVE mg/dl [facility] RBC LM.HPF (Urine sed) [#/Area] NONE SEEN 0-2/hpf /hpf [facility] Specific [place], UA 1.017 1.002 - 1.030 [facility] Urobilinogen, Urine 1.0 [facility] WBC LM.HPF (Urine sed) [#/Area] NONE SEEN 0-4/hpf /hpf [facility] CTA CHEST W [...] Dr Linn Shabazz on 09/23/2022 10:14 AM [facility] Linn Cruz MD - 09/23/2022 PROCEDURE: CTA [...] Dr Linn Shabazz on 09/23/2022 10:14 AM [employer] Phone: Radiology Study observation (narrative) [employer] Work Phone: CTA CHEST W WO CONTRASTOrder ed By: Linn Shabazz on 09-23-2022 [employer] [facility] Work Phone: POCT Glucoseon 09-23-2022 Glucose [Mass/Vol] 127 mg/dL High 70 - 108 mg/dl [facility] [employer] Comment on above: Performed at [facility] [address] [place] [address] Interpretation and review of laboratory results Abnormal [facility] [employer] ([email or web address])[facility] [employer] 09-22-2022 Anion gap [Moles/Vol] 12.0 mmol/L 8.0 - 16.0 meq/L [facility] [employer] ([email or web address]) [employer] Comment on above: ANION GAP = Sodium - (Chloride + CO2) Performed at [facility] [address] [place] [address] Basic Metabolic Panel w/ Ref jignesh to MGon 09-22-2022 Calcium [Mass/Vol] 8.5 mg/dL 8.5 - 10. 5 mg/dL [facility] [employer] Comment on above: Performed at [facility] [address] [place] [address] Chloride [Moles/Vol] 106 mmol/L 98 - 111 meq/L [facility] CO2 [Moles/Vol] 25 mmol/L 23 - 33 meq/L [facility] [employer] Creatinine [Mass/Vol] 0.6 mg/dL 0.4 - 1.2 mg/dL [facility] [employer] Glucose [Mass/Vol] 83 mg/dL 70 - 108 mg/dL [facility] [employer] Potassium [Moles/Vol] 4.3 mmol/L 3.5 - 5.2 meq/L [facility] Sodium [Moles/Vol] 143 mmol/L 135 - 145 meq/L [facility] [employer] ([email or web address]) [employer] Urea nitrogen (BldV) [Mass/Vol] 14 mg/dL 7 - 22 mg/dL [facility] [employer] ([email or web address]) [employer] CBCon 09-22-2022 Erythrocyte distribution width (RBC) [Ratio] 13 % 11.5 - 14.5 % [facility] [employer] Erythrocyte distribution width (RBC) [Ratio] 45.3 fL High 35.0 - 45.0 fL [facility] [employer] Hematocrit (Bld) [Volume fraction] 39.8 % Low 42.0 - 52.0 % [facility] Hemoglobin (Bld) [Mass/Vol] 13.0 g/dL Low [facility] Interpretation and review of laboratory results Abnormal [facility] MCH (RBC) [Entitic mass] 31.1 pg 26.0 - 33.0 pg [facility] MCHC (RBC) [Mass/Vol] 32.7 g/dL [facility] MCV (RBC) [Entitic vol] 95.2 fL High 80.0 - 94.0 fL [facility] Platelet mean volume (Bld) [Entitic vol] 9.2 fL Low 9.4 - 12.4 fL [facility] Comment on above: Performed at [facility] [place] [address] [address] Platelets (Bld) [#/Vol] 188 10*3/uL [facility] RBC (Bld) [#/Vol] 4.18 10*6/uL Low [facility] WBC (Bld) [#/Vol] 7.4 10*3/uL [facility] Glomerular Filtration Rate, Estimatedon 09-22-2022 GFR/1.73 sq M.predicted MDRD (S/P/Bld) [Vol rate/Area] - PINF [facility] Comment on above: Pediatric calculator link [...] that affects renal tubular secretion. Performed at [facility] [address] [place] [id number] No Panel Informationon 09-22 [facility] POCT Glucoseon 09-22-2022 Glucose [Mass/Vol] 104 mg/dL 70 - 108 mg/dl [facility] Comment on above: Performed at [facility] [address] [place] [address] POCT Glucoseon 09-21-2022 Glucose [Mass/Vol] 138 mg/dL High 70 - 108 mg/dl [facility] Comment on above: Performed at [facility] ([place], [place]) [facility] [address] [place] [address] Interpretation and review of laboratory results Abnormal [facility] Anion Gapon 09-20-2022 Anion gap [Moles/Vol] 10.0 mmol/L 8.0 - 16.0 meq/L [facility] Comment on above: ANION GAP = Sodium - (Chloride + CO2) Performed at [facility] [address] [place] [address] Basic Metabolic Panel w/ Ref jignesh to MGon 09-20-2022 Calcium [Mass/Vol] 8.3 mg/dL Low 8.5 - 10. 5 mg/dL [facility] Comment on above: Performed at [facility] [place] [address] [place] [address] Chloride [Moles/Vol] 108 mmol/L 98 - 111 meq/L [facility] CO2 [Moles/Vol] 25 mmol/L 23 - 33 meq/L [facility] Creatinine [Mass/Vol] 0.8 mg/dL 0.4 - 1.2 mg/dL [facility] Glucose [Mass/Vol] 117 mg/dL High 70 - 108 mg/dL [facility] Interpretation and review of laboratory results Abnormal [facility] Potassium [Moles/Vol] 4.4 mmol/L 3.5 - 5.2 meq/L [facility] Sodium [Moles/Vol] 143 mmol/L 135 - 145 meq/L [facility] Urea nitrogen (BldV) [Mass/Vol] 16 mg/dL 7 - 22 mg/dL [facility] CBCon 09-20-2022 Erythrocyte distribution width (RBC) [Ratio] 13.5 % 11.5 - 14.5 % [facility] Erythrocyte distribution width (RBC) [Ratio] 48.3 fL High 35.0 - 45.0 fL [facility] Hematocrit (Bld) [Volume fraction] 41.0 % Low 42.0 - 52.0 % [facility] Hemoglobin (Bld) [Mass/Vol] 13.2 g/dL Low [facility] Interpretation and review of laboratory results Abnormal [facility] MCH (RBC) [Entitic mass] 31.4 pg 26.0 - 33.0 pg [facility] MCHC (RBC) [Mass/Vol] 32.2 g/dL [facility] MCV (RBC) [Entitic vol] 97.4 fL High 80.0 - 94.0 fL [facility] Platelet mean volume (Bld) [Entitic vol] 9.5 fL 9.4 - 12.4 fL [facility] Comment on above: Performed at [facility] ([place], [place]) [facility] [address] [place] [address] Platelets (Bld) [#/Vol] 185 10*3/uL [facility] RBC (Bld) [#/Vol] 4.21 10*6/uL Low [facility] WBC (Bld) [#/Vol] 9.2 10*3/uL [facility] Glomerular Filtration Rate, Estimatedon 09-20-2022 GFR/1.73 sq M.predicted MDRD (S/P/Bld) [Vol rate/Area] - PINF [facility] Comment on above: Pediatric calculator link [...] that affects renal tubular secretion. Performed at [facility] [address] [place] [address] No Panel Informationon 09-20 [facility] Anion Gapon 09-19-2022 Anion gap [Moles/Vol] 8.0 mmol/L 8.0 - 16.0 meq/L [facility] Comment on above: ANION GAP = Sodium - (Chloride + CO2) Performed at [facility] [address] [place] [address] [facility] Basic Metabolic Panel w/ Ref jignesh to MGon 09-19-2022 Calcium [Mass/Vol] 8.2 mg/dL Low 8.5 - 10. 5 mg/dL [facility] Comment on above: Performed at [facility] [place] [address] [place] [address] Chloride [Moles/Vol] 105 mmol/L 98 - 111 meq/L [facility] CO2 [Moles/Vol] 26 mmol/L 23 - 33 meq/L [facility] Creatinine [Mass/Vol] 0.8 mg/dL 0.4 - 1.2 mg/dL [facility] Glucose [Mass/Vol] 150 mg/dL High 70 - 108 mg/dL [facility] Interpretation and review of laboratory results Abnormal [facility] Potassium [Moles/Vol] 5.4 mmol/L High 3.5 - 5.2 meq/L [facility] Sodium [Moles/Vol] 139 mmol/L 135 - 145 meq/L [facility] Urea nitrogen (BldV) [Mass/Vol] 13 mg/dL 7 - 22 mg/dL [facility] CBC with Auto Differentialon 09-19-2022 Basophils (Bld) [#/Vol] 0.0 10*3/uL [facility] Basophils/100 WBC (Bld) 0.1 % [facility] Eosinophils Absolute 0.0 [facility] Eosinophils/100 WBC (Bld) 0 % [facility] Erythrocyte distribution width (RBC) [Ratio] 13.3 % 11.5 - 14.5 % [facility] Erythrocyte distribution width (RBC) [Ratio] 47.7 fL High 35.0 - 45.0 fL [facility] Hematocrit (Bld) [Volume fraction] 41.8 % Low 42.0 - 52.0 % [facility] Hemoglobin (Bld) [Mass/Vol] 13.4 g/dL Low [facility] Immature Grans (Abs) 0.03 [facility] Immature granulocytes/100 WBC (Bld) 0.3 % [facility] Interpretation and review of [...] fL High 80.0 - 94.0 fL [facility] Monocytes Absolute 0.4 [facility] Monocytes/100 WBC (Bld) 4.3 % [facility] nRBC 0 /100 wbc [facility] Comment on above: Performed at [facility] [address] [place] [id number] Platelet mean volume (Bld) [Entitic vol] 9.7 fL 9.4 - 12.4 fL [facility] Platelets (Bld) [#/Vol] 171 10*3/uL [facility] RBC (Bld) [#/Vol] 4.26 10*6/uL Low [facility] Segmented neutrophils/100 WBC (Bld) 87.1 % [facility] Segs Absolute 8.2 High [facility] WBC (Bld) [#/Vol] 9.4 10*3/uL [facility] Glomerular Filtration Rate, Estimatedon 09-19-2022 GFR/1.73 sq M.predicted MDRD (S/P/Bld) [Vol rate/Area] - PINF [facility] Comment on above: Pediatric calculator link [...] that affects renal tubular secretion. Performed at [facility] [address] [place] [address] Potassiumon 09-19-2022 Potassium [Moles/Vol] 4.8 mmol/L 3.5 - 5.2 meq/L [facility] Comment on above: Low level specimen h emolysis is present as indicated by the interference level index on the Cleopatra analyzer. The reported K+ level may be falsely increased. If clinically warranted, recollection of the specimen is suggested. Performed at [address] Anion Gapon 09-18-2022 Anion gap [Moles/Vol] 11.0 mmol/L 8.0 - 16.0 meq/L [facility] Comment on above: ANION GAP = Sodium - (Chloride + CO2) [place] [address] Brain Natriuretic Peptideon 09-18-2022 Natriuretic peptide B (Bld) [Mass/Vol] 121.9 pg/mL 0.0 - 124.0 pg/mL [facility] Comment on above: Performed at [facility] [address] [place] [address] CBC with Auto Differentialon 09-18-2022 Basophils (Bld) [#/Vol] 0.0 10*3/uL [facility] Basophils/100 WBC (Bld) 0.2 % [facility] Eosinophils Absolute 0.0 [facility] Eosinophils/100 WBC (Bld) 0.2 % [facility] Erythrocyte distribution width (RBC) [Ratio] 13.4 % 11.5 - 14.5 % [facility] Erythrocyte distribution width (RBC) [Ratio] 47.9 fL High 35.0 - 45.0 fL [facility] Hematocrit (Bld) [Volume fraction] 40.0 % Low 42.0 - 52.0 % [facility] Hemoglobin (Bld) [Mass/Vol] 13.1 g/dL Low [facility] Immature Grans (Abs) 0.03 [facility] Immature granulocytes/100 WBC (Bld) 0.4 % [facility] Interpretation and review of laboratory results Abnormal [facility] Lymphocytes Absolute 0.6 Low [facility] Lymphocytes/100 WBC (Bld) 7.6 % [facility] MCH (RBC) [Entitic mass] 31.7 pg 26.0 - 33.0 pg [facility] MCHC (RBC) [Mass/Vol] 32.8 g/dL [facility] MCV (RBC) [Entitic vol] 96.9 fL High 80.0 - 94.0 fL [facility] Monocytes Absolute 0.7 [facility] Monocytes/100 WBC (Bld) 8.3 % [facility] nRBC 0 /100 wbc [facility] Comment on above: Performed at [facility] ([place], [place]) [facility] [address] [place] [address] Platelet mean volume (Bld) [Entitic vol] 9.2 fL Low 9.4 - 12.4 fL [facility] Platelets (Bld) [#/Vol] 161 10*3/uL [facility] RBC (Bld) [#/Vol] 4.13 10*6/uL Low [facility] Segmented neutrophils/100 WBC (Bld) 83.3 % [facility] Segs Absolute 6.8 [facility] WBC (Bld) [#/Vol] 8.2 10*3/uL [facility] COVID-19 & Influenza Comboon 09-18-2022 INFLUENZA A Detected Critically abnormal NOT DETECTED [facility] INFLUENZA B Not detected NOT DETECTED [facility] Comment on above: Performed at [facility], [place]) [facility] [address] [place] [address] Interpretation and review of laboratory results Abnormal [facility] SARS-CoV-2 (COVID-19) RNA JAVI+probe Ql (Unsp spec) Not detected NOT DETECTED [facility] Comment on above: Not Detected results [...] nasal swab specimens for use under the [facility] s Emergency Use Authorization (EUA) only. Fact sheet for Healthcare Providers: https://www.fda.gov/media/132297/download Fact sheet for Patients: https://www.fda.gov/media/499255/download [facility] Comprehensive Metabolic Pane l w/ Reflex to MGon 09-18-2022 Albumin [Mass/Vol] 3.8 g/dL 3.5 - 5.1 g/dL [facility] ALP (Bld) [Catalytic activity/Vol] 89 U/L 38 - 126 U/L [facility] ALT [Catalytic activity/Vol] U/L Low 11 - 66 U/L [facility] Comment on above: Performed at [facility] [address] [place] [id number] AST [Catalytic activity/Vol] 27 U/L 5 - 40 U/L [facility] Bilirubin [Mass/Vol] 0.3 mg/dL 0.3 - 1.2 mg/dL [facility] Calcium [Mass/Vol] 8.4 mg/dL Low 8.5 - 10. 5 mg/dL [facility] Chloride [Moles/Vol] 101 mmol/L 98 - 111 meq/L [facility] CO2 [Moles/Vol] 23 mmol/L 23 - 33 meq/L [facility] Creatinine [Mass/Vol] 0.8 mg/dL 0.4 - 1.2 mg/dL [facility] Glucose [Mass/Vol] 125 mg/dL High 70 - 108 mg/dL [facility] Interpretation and review of laboratory results Abnormal [facility] Potassium [Moles/Vol] 4.3 mmol/L 3.5 - 5.2 meq/L [facility] Protein [Mass/Vol] 6.5 g/dL 6.1 - 8.0 g/dL [facility] Sodium [Moles/Vol] 135 mmol/L 135 - 145 meq/L [facility] Urea nitrogen (BldV) [Mass/Vol] 14 mg/dL 7 - 22 mg/dL [facility] EKG 12 LeadOrdered By: Annette Beaulieu on 09-18-2022 Atrial Rate 118 BPM [employer] Work Phone: P [place] 61 degrees [employer] Work Phone: P-R Interval 142 ms [employer] Work Phone: Q-T Interval 318 ms [employer] Work Phone: QRS Duration 78 ms [employer] Work Phone: QTc Calculation (Bazett) 445 ms [employer] Work Phone: R [place] -36 degrees [employer] Work Phone: T [place] 67 degrees [employer] Work Phone: Ventricular Rate 118 BPM [facility] [employer] Work Phone: [facility] Work Phone: EKG 12 Leadon 09-18-2022 Sinus tachycardia Left axis deviation Abnormal ECG When compared with ECG of 31-OCT-2021 14:, No significant change was found Confirmed by ANNETTE BEAULIEU ([id number]) on 09/18/2022 7:17:25 PM [facility] Annette Beaulieu MD - 09/18/2022 Sinus tachycardia Left axis deviation Abnormal ECG When compared with ECG of 31-OCT-2021 14:27, No significant change was found Confirmed by ANNETTE BEAULIEU ([id number]) on 09/18/2022 7:17:25 PM [employer] Work Phone: Glomerular Filtration Rate, Estimatedon 09-18-2022 GFR/1.73 sq M.predicted MDRD (S/P/Bld) [Vol rate/Area] - PINF [facility] Comment on above: Pediatric calculator link https://www.kidney.org/professionals/kdoqi/gfr_calculatorped [...] that affects renal tubular secretion. [place] [address] No Panel Informationon 09-18 [facility] Troponinon 09-18-2022 Troponin T < 0.010 ng/ml [facility] Comment on above: <0.010 ng/ml Normal [...] an acute or chronic condition. Performed at [place] [id number] XR CHEST PORTABLEon 09-18-20 1. Prominent interstitial markings within the lower lungs raising the possibility of an interstitial infiltrate or interstitial edema. 2. Linear focus of atelectasis within the left lower lung. This document has been electronically signed by: Izzy Espinoza MD on 09/18/2022 06:19 PM [facility] MAN 1 view chest x-ray Comparison: CR/SR - XR CHEST PORTABLE - 10/31/2021 02:51 PM EST Findings: Prominence of interstitial markings within the bilateral lower lungs. Linear opacity within the left lower lung. No consolidative process. Borderline heart size. Tortuous aorta. Prior left-sided rotator cuff repair. No acute displaced fracture. [facility] Izzy Hernandes MD - 09/18/2022 1 view [...] Izzy Espinoza MD on 09/18/2022 06:19 PM [employer] Work Phone: Radiology Study observation (narrative) [employer] Work Phone: XR CHEST PORTABLEOrdered By: Izzy Espinoza on 09-18-2022 [facility] ECHOCARDIO M/2D COMPLETEon 0 03-13-2020 ECHOCARDIO M/2D COMPLETE Patient: SANA STANLEY Exam Date: 03/13/2020 : 1955 Gender:M Ordering : DR PIYUHS KEANE . Admission #: [id number] Family : Order #: [id number] CLICK HERE TO VIEW EXAM ECHOCARDIOGRAM REPORT [...] Area(A4C): 16.80 cm2 Left Atrium Systolic Volume(A4C): 98590 mm3 Mitral Valve MV E to A [...] Monreal M.D. on 03/14/2020 at 13:54 [address] [facility] CT HIP RT WO CONon 0 CT [...] SANAM GRUBBS Date: 2020-01-27 09:42 Normal [facility] ACETONE SERUMon 06-16-2019 ACETONE Negative Normal NEGATIVE [facility] Comment on above: Performed By: #### A CETON #### [facility] [address] [place] [address] She Izzy CBC AUTO DIFFon 06-16-2019 Basophils (Bld) [#/Vol] 0.0 103/ul Normal 0.0-0.1 [facility] Comment on above: Performed By: #### C BC #### [facility] [address] [place] [address] She Izzy Basophils/100 WBC (Bld) 0.2 % Normal 0.2-2.0 [facility] Comment on above: Performed By: #### C BC #### [facility] [address] [place], [place] [id number] She Izzy Eosinophils (Bld) [#/Vol] 0.0 103/ul Normal 0.0-0.7 [facility] Comment on above: Performed By: #### C BC #### [facility] [address] [place] [address] She Izzy Eosinophils/100 WBC (Bld) 0.3 % Critically low 0.9-7.0 [facility] Comment on above: Performed By: #### C BC #### [facility] [address] [place], [place] [phone] She Izzy Erythrocyte distribution width (RBC) [Ratio] 12.9 % Normal 11.0-15.0 [facility] Comment on above: Performed By: #### C BC #### [facility] [address] [place] [address] She Izzy Hematocrit (Bld) [Volume fraction] 45.3 % Normal 42.0-54.0 [facility] Comment on above: Performed By: #### C BC #### [facility] [address] [place] [address] She Izzy Hemoglobin (Bld) [Mass/Vol] 15.1 g/dL Normal 14.0-18.0 [facility] Comment on above: Performed By: #### C BC #### [facility] [address] [place] [id number] She Izzy IG # 0.04 10e3/ul Critically high 0.00-0.03 [facility] Comment on above: Performed By: #### C BC #### [facility] [address] [place] [id number] She Izzy IG % 0.3 % Normal 0.0-0.5 [facility] Comment on above: Performed By: #### C BC #### [facility] [address] [place] [id number] She Izzy Lymphocytes (Bld) [#/Vol] 1.3 103/ul Normal 1.2-3.8 [facility] Comment on above: Performed By: #### C BC #### [facility] [address] [place] [address] She Izzy Lymphocytes/100 WBC (Bld) 9.6 % Critically low 20.5-60.0 [facility] Comment on above: Performed By: #### C BC #### [facility] [address] [place], [place] [phone] She Izzy MANUAL DIFF REQ NO Normal [facility] Comment on above: Performed By: #### C BC #### [facility] [address] [place], [place] [phone] She Izzy MCH (RBC) [Entitic mass] 32.1 pg Normal 25.9-34.0 [facility] Comment on above: Performed By: #### C BC #### [facility] [address] [place], [place] [phone] She Izzy MCHC (RBC) [Mass/Vol] 33.3 g/dL Normal 29.9-35.2 [facility] Comment on above: Performed By: #### C BC #### [facility] [address] [place], [place] [phone] She Izzy MCV (RBC) [Entitic vol] 96.2 fL Critically high 80.0-94.0 [facility] Comment on above: Performed By: #### C BC #### [facility] [address] [place], [place] [address] She Izzy Monocytes (Bld) [#/Vol] 0.5 103/ul Normal 0.3-0.8 [facility] Comment on above: Performed By: #### C BC #### [facility] [address] [place], [place] [address] She Izzy Monocytes/100 WBC (Bld) 3.7 % Normal 1.7-12.0 [facility] Comment on above: Performed By: #### C BC #### [facility] [address] [place], [place] [address] She Izzy Neutrophils (Bld) [#/Vol] 11.8 103/ul Critically high 1.4-6.5 [facility] Comment on above: Performed By: #### C BC #### [facility] [address] [place], [place] [address] She Izzy Neutrophils/100 WBC (Bld) 85.9 % Critically high 43.0-75.0 [facility] Comment on above: Performed By: #### C BC #### [facility] [address] [place], [place] [address] She Izzy Platelet mean volume (Bld) [Entitic vol] 9.1 fL Critically low 9.5-13.5 [facility] Comment on above: Performed By: #### C BC #### [facility] [address] [place], [place] [address] She Izzy Platelets (Bld) [#/Vol] 175 103/ul Normal 150-450 [facility] Comment on above: Performed By: #### C BC #### [facility] [address] [place], [place] [address] She Izzy RBC (Bld) [#/Vol] 4.71 106/ul Normal 4.70-6.10 [facility] Comment on above: Performed By: #### C BC #### [facility] [address] [place], [place] [address] She Izzy WBC (Bld) [#/Vol] 13.8 103/ul Critically high 4.0-11.0 T he [facility] Comment on above: Performed By: #### C BC #### [facility] [address] [place] [address] She Izzy ER URINE PROFILEon 9 Bilirubin [Mass/Vol] Negative Normal NEGATIVE [facility] Comment on above: Performed By: #### C BC #### [facility] [address] [place] [address] She Izzy BLOOD Negative Normal NEGATIVE [facility] Comment on above: Performed By: #### C BC #### [facility] [address] [place] [address] She Izzy Clarity (U) CLEAR Normal [facility] Comment on above: Performed By: #### C BC #### [facility] [address] [place] [address] She Izzy Color (U) LT. YELLOW Normal YELLOW [facility] Comment on above: Performed By: #### C BC #### [facility] [address] [place] [address] She Izzy ERUAHD A micrscopic examination will be performed if indicated. Normal [facility] Comment on above: Performed By: #### C BC #### [facility] [address] [place] [address] She Izzy Glucose [Mass/Vol] Negative Normal NEGATIVE [facility] Comment on above: Performed By: #### C BC #### [facility] [address] [place] [address] She Izzy Ketones Ql (U) Negative Normal NEGATIVE [facility] Comment on above: Performed By: #### C BC #### [facility] [address] [place] [address] She Izzy Nitrite Ql (U) Negative Normal NEGATIVE [facility] Comment on above: Performed By: #### C BC #### [facility] [address] [place] [address] She Izzy pH (Bld) 6.0 Normal 5-9 [facility] Comment on above: Performed By: #### C BC #### [facility] [address] [place], [place] [phone] Shekeli Magana Protein (U) [Mass/Vol] Negative Normal [facility] Comment on above: Performed By: #### C BC #### [facility] [address] [place], [place] [phone] She Magana SPEC GRAVITY 1.010 Normal 1.005-<=1.025 [facility] Comment on above: Performed By: #### C BC #### [facility] [address] [place] [address] She Magana UR MICRO IND NOT INDICATED Normal [facility] Comment on above: Performed By: #### C BC #### [facility] [address] [place] [address] Shekeli Magana Urobilinogen Qn (U) 0.2 EU/dl Normal [facility] Comment on above: Performed By: #### C BC #### [facility] [address] [place] [address] She Magana WBC (Bld) [#/Vol] Negative Normal NEGATIVE [facility] Comment on above: Performed By: #### C BC #### [facility] [address] [place], [place] [phone] She Magana LACTATE/LACTIC ACIDon 2018 Lactate [Moles/Vol] 1.5 mmol/L Normal 0.7-2.1 [facility] Comment on above: Performed By: #### L ACT #### [facility] [address] [place], [place] [phone] She Izzy PH VENOUS BLOODon 06-16-2019 PCO2 VENOUS 56.8 mmHg Critically high 40.0-52.0 [facility] Comment on above: Performed By: #### P HVEN #### [facility] [address] [place], [place] [phone] She Izzy pH VENOUS 7.30 Critically low 7.33-7.43 [facility] Comment on above: Performed By: #### P HVEN #### [facility] [address] [place] [address] She Izzy PROCALCITONINon 06-16-2019 PCT header 1 SEE BELOW Normal [facility] Comment on above: Result Comment: PCT <0.5ng/mL: Systemic infection (sepsis) is not likely, local bacterial infection possible, low risk for progression to severe systemic infection (severe sepsis) Performed By: #### P RL #### [facility] [address] [place] [address] Shekeli Magana PCT header 2 SEE BELOW Normal [facility] Comment on above: Result Comment: PCT >/=0.5 and <2 ng/mL: Systemic infection (sepsis) is possible, moderate risk for progression to severe systemic infection (severe sepsis) Performed By: #### P RL #### [facility] [address] [place] [address] Shekeli Magana PCT header 3 SEE BELOW Normal [facility] Comment on above: Result Comment: PCT >/=2.0 and <10 ng/mL: Systemic infection (sepsis) is likely, unless other causes are known, high risk for progession to severe systemic infection(severe sepsis) Performed By: #### P RL #### [facility] [address] [place] [address] She Izzy PCT header 4 SEE BELOW Normal [facility] Comment on above: Result Comment: PCT >/= 10 ng/mL: Important systemic inflammatory response almost exclusively due to severe bacterial sepsis or septic shock, high likelihood of severe sepsis or septic shock Performed By: #### P RL #### [facility] [address] [place] [address] She Magana PROCALCITONIN <0.05 Normal 0.00-0.50 [facility] Comment on above: Performed By: #### P RL #### [facility] [address] [place] [address] She Magana PROF 14(COMP METB)on 019 Albumin [Mass/Vol] 3.6 g/dL Normal 3.5-5.0 [facility] Comment on above: Performed By: #### C MP, TROP #### [facility] [address] [place] [address] She Izzy Albumin/Globulin [Mass ratio] 1.1 {ratio} Normal [facility] Comment on above: Performed By: #### C MP, TROP #### [facility] [address] [address] She Izzy ALP [Catalytic activity/Vol] 107 U/L Normal 38-126 [facility] Comment on above: Performed By: #### C MP, TROP #### [facility] [address] [address] She Izzy ALT [Catalytic activity/Vol] 10 U/L Critically low 21-72 [facility] Comment on above: Performed By: #### C MP, TROP #### [facility] [address] [place] [address] She Izzy Anion gap [Moles/Vol] 10.4 mmol/L Normal [facility] Comment on above: Performed By: #### C MP, TROP #### [facility] [address] [place] [address] She Izzy AST [Catalytic activity/Vol] 14 U/L Critically low 17-59 [facility] Comment on above: Performed By: #### C MP, TROP #### [facility] [address] [place] [address] She Izzy Bilirubin Ql (U) 0.4 mg/dL Normal 0.2-1.3 [facility] Comment on above: Performed By: #### C MP, TROP #### [facility] [address] [address] She Izzy Calcium [Mass/Vol] 9.0 mg/dL Normal 8.4-10.2 [facility] Comment on above: Performed By: #### C MP, TROP #### [facility] [address] [id number] She Izzy Chloride [Moles/Vol] 105 mmol/L Normal 98-107 [facility] Comment on above: Performed By: #### C MP, TROP #### [facility] [address] [address] She Izzy CO2 [Moles/Vol] 27.4 mmol/L Normal 22.0-30.0 [facility] Comment on above: Performed By: #### C MP, TROP #### [facility] [address] [address] She Izzy Creatinine [Mass/Vol] 0.85 mg/dL Normal 0.66-1.25 [facility] Comment on above: Performed By: #### C MP, TROP #### [facility] [address] [id number] She Izzy EGFR-AF CAMBODIAN >60 Normal >=60 [facility] Comment on above: Performed By: #### C MP, TROP #### [facility] [address] [address] She Izzy EGFR-NON AF CAMBODIAN >60 Normal >=60 [facility] Comment on above: Performed By: #### C MP, TROP #### [facility] [address] [place] [address] She Izzy Globulin (S) [Mass/Vol] 3.4 g/dL Normal [facility] Comment on above: Performed By: #### C MP, TROP #### [facility] [address] [place] [address] She Izzy Glucose [Mass/Vol] 105 mg/dL Normal 74-106 [facility] Comment on above: Performed By: #### C MP, TROP #### [facility] [address] [place] [address] She Izzy Potassium [Moles/Vol] 3.8 mmol/L Normal 3.4-5.0 [facility] Comment on above: Performed By: #### C MP, TROP #### [facility] [address] [place] [address] She Izzy Protein [Mass/Vol] 7.0 g/dL Normal 6.1-8.2 [facility] Comment on above: Performed By: #### C MP, TROP #### [facility] [address] [place] [address] She Izzy Sodium [Moles/Vol] 139 mmol/L Normal 137-145 [facility] Comment on above: Performed By: #### C MP, TROP #### [facility] [address] [place] [address] She Izzy Urea nitrogen [Mass/Vol] 9.0 mg/dL Normal 9.0-20.0 [facility] Comment on above: Performed By: #### C MP, TROP #### [facility] [address] [place] [address] She Izzy Urea nitrogen/Creatinine [Mass ratio] 10.6 mg/mg Normal [facility] Comment on above: Performed By: #### C MP, TROP #### [facility] [address] [place] [address] She Izzy PROTIMEon 06-16-2019 INR Coag (PPP) [Relative time] 1.03 {INR} Normal [facility] Comment on above: Performed By: #### P T, PTT #### [facility] [address] [place] [address] She Izzy PT Coag (PPP) [Time] PLEASE NOTE: NORMAL RANGE CHANGE 06-07-2014 DUE TO REAGENT LOT CHANGE [facility] Comment on above: Performed By: #### P T, PTT #### [facility] [address] [place] [address] She Izzy PT Coag (PPP) [Time] 10.7 s Normal 9.0-11.6 [facility] Comment on above: Performed By: #### P T, PTT #### [facility] [address] [place] [address] She Izzy PT Coag (PPP) [Time] SEE BELOW Normal [facility] Comment on above: Result Comment: MOSES RED INR: 2.0 - 3.0 CONDITIONS NOT LISTED BELOW 2.5 - 3.5 FOR PROSTHETIC HEART VALVE REPLACEMENT 2.5 - 3.5 RECURRENT THROMBOSIS Performed By: #### P T, PTT #### [facility] [address] [place] [address] She Izzy PTTon 06-16-2019 aPTT Coag (Bld) [Time] PLEASE NOTE: NORMAL RANGE CHANGE 08-14-2015 DUE TO REAGENT LOT CHANGE Normal [facility] Comment on above: Performed By: #### P T, PTT #### [facility] [address] [place] [address] She Magana aPTT Coag (Bld) [Time] 23.2 s Normal 22.3-36.2 [facility] Comment on above: Performed By: #### P T, PTT #### [facility] [address] [place] [address] She Magana TROPONIN - Ion 06-16-2019 Troponin I.cardiac [Mass/Vol] ng/mL Normal <=0.034 [facility] Comment on above: Performed By: #### C MP, TROP #### [facility] [address] [place] [address] Izzy Troponin I.cardiac [Mass/Vol] SEE BELOW Normal [facility] Comment on above: Result Comment: <0.0 34 ng/ml NEGATIVE 0.034-0.119 INDETERMINATE 0.120 AMI CUT OFF Performed By: #### C MP, TROP #### [facility] [address] [place] [address] She Magana XR CHEST 2 Von 06-16-2019 XR CHEST 2 V Patient: SANA STANLEY Exam Date: 06/16/2019 : 1955 Gender:M Ordering : VIRGINIE RACHEL Admission #: [id number] Family : DR. SARAH BETANCOURT M.D. Order #: [id number] CLICK HERE TO VIEW EXAM RADIOLOGY REPORT [...] Barros M.D. on 06/16/2019 at 20:18 Normal [facility] Vital Signs Date Time Vital Sign Value Performing Clinician Facility 06-01-2025 15:06-0400 Body mass index (BMI) [Ratio] 32.73 kg/m2 Fabien Furlong DO Work Phone: [facility] 06-01-2025 15:06-0400 Body temperature 97.81 [degF] Fabien Furlong DO Work Phone: [facility] 06-01-2025 15:06-0400 Body weight 94.8 kg Fabien Furlong DO Work Phone: [facility] 06-01-2025 15:06-0400 Diastolic blood pressure 74 mm[Hg] Fabien Furlong DO Work Phone: [facility] 06-01-2025 15:06-0400 Heart rate 57 /min Fabien Furlong DO Work Phone: [facility] 06-01-2025 15:06-0400 Respiratory rate 20 /min Fabien Furlong DO Work Phone: [facility] 06-01-2025 15:06-0400 SaO2% (BldA) [Mass fraction] 94 % Fabien Furlong DO Work Phone: [facility] 06-01-2025 15:06-0400 Systolic blood pressure 152 mm[Hg] Fabien Furlong DO Work Phone: [facility] 04-20-2025 15:50-0400 Body mass index (BMI) [Ratio] 32.42 kg/m2 Fabien Furlong DO Work Phone: [facility] 04-20-2025 15:50-0400 Body temperature 97.81 [degF] Fabien Furlong DO Work Phone: [facility] 04-20-2025 15:50-0400 Body weight 93.89 kg Fabien Furlong DO Work Phone: [facility] 04-20-2025 15:50-0400 Diastolic blood pressure 74 mm[Hg] Fabien Furlong DO Work Phone: [facility] [facility] 04-20-2025 15:50-0400 Heart rate 92 /min Fabien Furlong DO Work Phone: [facility] 04-20-2025 15:50-0400 Respiratory rate 18 /min Faiben Furlong DO Work Phone: [facility] 04-20-2025 15:50-0400 SaO2% (BldA) [Mass fraction] 94 % Fabien Furlong DO Work Phone: [facility] 04-20-2025 15:50-0400 Systolic blood pressure 108 mm[Hg] Fabien Furlong DO Work Phone: [facility] 04-10-2025 13:51-0400 Body mass index (BMI) [Ratio] 32.17 kg/m2 Fabien Furlong DO Work Phone: [facility] 04-10-2025 13:51-0400 Body temperature 98.1 [degF] Fabien Furlong DO Work Phone: [facility] 04-10-2025 13:51-0400 Body weight 93.17 kg Fbaien Furlong DO Work Phone: [facility] 04-10-2025 13:51-0400 Diastolic blood pressure 89 mm[Hg] Fabien Furlong DO Work Phone: [facility] 04-10-2025 13:51-0400 Heart rate 70 /min Fabien Furlong DO Work Phone: [facility] 04-10-2025 13:51-0400 Respiratory rate 18 /min Fabien Furlong DO Work Phone: [facility] 04-10-2025 13:51-0400 SaO2% (BldA) [Mass fraction] 97 % Fabien Furlong DO Work Phone: [facility] 04-10-2025 13:51-0400 Systolic blood pressure 135 mm[Hg] Fabien Furlong DO Work Phone: [facility] 03-09-2025 15:30-0400 Body mass index (BMI) [Ratio] 31.42 kg/m2 Fabien Furlong DO Work Phone: [facility] 03-09-2025 15:30-0400 Body temperature 97.2 [degF] Fabien Furlong DO Work Phone: [facility] 03-09-2025 15:30-0400 Body weight 90.99 kg Fabien Furlong DO Work Phone: [facility] 03-09-2025 15:30-0400 Diastolic blood pressure 77 mm[Hg] Fabien Furlong DO Work Phone: [facility] 03-09-2025 15:30-0400 Heart rate 82 /min Fabien Furlong DO Work Phone: [facility] 03-09-2025 15:30-0400 Respiratory rate 18 /min Fabien Furlong DO Work Phone: [facility] 03-09-2025 15:30-0400 SaO2% (BldA) [Mass fraction] 97 % Fabien Furlong DO Work Phone: [facility] 03-09-2025 15:30-0400 Systolic blood pressure 127 mm[Hg] Fabien Furlong DO Work Phone: [facility] 01-10-2025 15:41-0400 Body temperature 97.7 [degF] Fabien Furlong DO Work Phone: [facility] 01-10-2025 15:41-0400 Diastolic blood pressure 73 mm[Hg] Fabien Furlong DO Work Phone: [facility] 01-10-2025 15:41-0400 Heart rate 86 /min Fabien Furlong DO Work Phone: [facility] 01-10-2025 15:41-0400 Respiratory rate 20 /min Fabien Furlong DO Work Phone: [facility] 01-10-2025 15:41-0400 SaO2% (BldA) [Mass fraction] 91 % Fabien Furlong DO Work Phone: [facility] 01-10-2025 15:41-0400 Systolic blood pressure 134 mm[Hg] Fabien Furlong DO Work Phone: [facility] 12-07-2024 15:48-0400 Body mass index (BMI) [Ratio] 31.29 kg/m2 Fabien Furlong DO Work Phone: [facility] 12-07-2024 15:48-0400 Body temperature 98.6 [degF] Fabien Furlong DO Work Phone: [facility] 12-07-2024 15:48-0400 Body weight 90.63 kg Fabien Furlong DO Work Phone: [facility] 12-07-2024 15:48-0400 Diastolic blood pressure 70 mm[Hg] Fabien Furlong DO Work Phone: [facility] 12-07-2024 15:48-0400 Heart rate 82 /min Fabien Furlong DO Work Phone: [facility] 12-07-2024 15:48-0400 SaO2% (BldA) [Mass fraction] 94 % Fabien Furlong DO Work Phone: [facility] 12-07-2024 15:48-0400 Systolic blood pressure 124 mm[Hg] Fabien Furlong DO Work Phone: [facility] 11-07-2024 14:59-0500 Diastolic blood pressure 98 mm[Hg] Fabien Furlong DO Work Phone: [facility] 11-07-2024 14:59-0500 Heart rate 110 /min Fabien Furlong DO Work Phone: [facility] 11-07-2024 14:59-0500 SaO2% (BldA) [Mass fraction] 98 % Fabien Furlong DO Work Phone: [facility] 11-07-2024 14:59-0500 Systolic blood pressure 122 mm[Hg] Fabien Furlong DO Work Phone: [facility] 10-31-2024 17:17-0500 Diastolic blood pressure 69 mm[Hg] Fabien Furlong DO Work Phone: [facility] 10-31-2024 17:17-0500 Heart rate 92 /min Fabien Furlong DO Work Phone: [facility] 10-31-2024 17:17-0500 SaO2% (BldA) [Mass fraction] 90 % Fabien Furlong DO Work Phone: [facility] 10-31-2024 17:17-0500 Systolic blood pressure 147 mm[Hg] Fabien Furlong DO Work Phone: [facility] 10-27-2024 14:28-0500 Body mass index (BMI) [Ratio] 31.17 kg/m2 Fabien Furlong DO Work Phone: [facility] 10-27-2024 14:28-0500 Body weight 90.27 kg Fabien Furlong DO Work Phone: [facility] 10-27-2024 14:28-0500 Diastolic blood pressure 91 mm[Hg] Fabien Furlong DO Work Phone: [facility] 10-27-2024 14:28-0500 Heart rate 81 /min Fabien Furlong DO Work Phone: [facility] 10-27-2024 14:28-0500 SaO2% (BldA) [Mass fraction] 95 % Fabien Furlong DO Work Phone: [facility] 10-27-2024 14:28-0500 Systolic blood pressure 150 mm[Hg] Fabien Furlong DO Work Phone: [facility] 10-17-2024 21:26-0500 Body temperature 97.7 [degF] Fabien Furlong DO Work Phone: [facility] 10-17-2024 21:26-0500 Diastolic blood pressure 69 mm[Hg] Fabien Furlong DO Work Phone: [facility] 10-17-2024 21:26-0500 Heart rate 72 /min Fabien Furlong DO Work Phone: [facility] 10-17-2024 21:26-0500 Respiratory rate 18 /min Fabien Furlong DO Work Phone: [facility] 10-17-2024 21:26-0500 SaO2% (BldA) [Mass fraction] 94 % Fabien Furlong DO Work Phone: [facility] 10-17-2024 21:26-0500 Systolic blood pressure 134 mm[Hg] Fabien Furlong DO Work Phone: [facility] 10-10-2024 15:48-0500 Body temperature 97.59 [degF] Fabien Furlong DO Work Phone: [facility] 10-10-2024 15:48-0500 Diastolic blood pressure 77 mm[Hg] Fabien Furlong DO Work Phone: [facility] 10-10-2024 15:48-0500 Heart rate 77 /min Fabien Furlong DO Work Phone: [facility] 10-10-2024 15:48-0500 Respiratory rate 20 /min Fabien Furlong DO Work Phone: [facility] 10-10-2024 15:48-0500 SaO2% (BldA) [Mass fraction] 97 % Fabien Furlong DO Work Phone: [facility] [employer] 10-10-2024 15:48-0500 Systolic blood pressure 138 mm[Hg] Fabien Furlong DO Work Phone: [facility] 10-03-2024 16:44-0500 Body temperature 98.29 [degF] Fabien Furlong DO Work Phone: [facility] [employer] 10-03-2024 16:44-0500 Diastolic blood pressure 68 mm[Hg] Fabien Furlong DO Work Phone: [facility] 10-03-2024 16:44-0500 Heart rate 82 /min Fabien Furlong DO Work Phone: [facility] 10-03-2024 16:44-0500 Respiratory rate 20 /min Fabien Furlong DO Work Phone: [facility] [employer] 10-03-2024 16:44-0500 SaO2% (BldA) [Mass fraction] 98 % Fabien Furlong DO Work Phone: [facility] [employer] 10-03-2024 16:44-0500 Systolic blood pressure 127 mm[Hg] Fabien Furlong DO Work Phone: [facility] 08-11-2024 15:42-0500 Body mass index (BMI) [Ratio] 31.51 kg/m2 Fabien Furlong DO Work Phone: [facility] [facility] 08-11-2024 15:42-0500 Body weight 91.26 kg Fabien Furlong DO Work Phone: [facility] 08-11-2024 15:42-0500 Diastolic blood pressure 78 mm[Hg] Fabien Furlong DO Work Phone: [facility] 08-11-2024 15:42-0500 Heart rate 88 /min Fabien Furlong DO Work Phone: [facility] 08-11-2024 15:42-0500 Systolic blood pressure 158 mm[Hg] Fabien Furlong DO Work Phone: [facility] 07-24-2024 13:42-0500 Diastolic blood pressure 70 mm[Hg] Fabien Furlong DO Work Phone: [facility] 07-24-2024 13:42-0500 Heart rate 60 /min Fabien Furlong DO Work Phone: [facility] 07-24-2024 13:42-0500 Systolic blood pressure 108 mm[Hg] Fabien Furlong DO Work Phone: [facility] 07-04-2024 16:09-0400 Diastolic blood pressure 74 mm[Hg] Fabien Furlong DO Work Phone: [facility] 07-04-2024 16:09-0400 Heart rate 76 /min Fabien Furlong DO Work Phone: [facility] 07-04-2024 16:09-0400 Systolic blood pressure 116 mm[Hg] Fabien Furlong DO Work Phone: [facility] 06-27-2024 11:53-0400 Body mass index (BMI) [Ratio] 30.6 kg/m2 Fabien Furlong DO Work Phone: [facility] 06-27-2024 11:53-0400 Body weight 88.63 kg Fabien Furlong DO Work Phone: [facility] 06-27-2024 11:53-0400 Diastolic blood pressure 76 mm[Hg] Fabien Furlong DO Work Phone: [facility] 06-27-2024 11:53-0400 Heart rate 82 /min Fabien Furlong DO Work Phone: [facility] [facility] 06-27-2024 11:53-0400 Systolic blood pressure 134 mm[Hg] Fabien Furlong DO Work Phone: [facility] [facility] 06-23-2024 22:24-0400 Body temperature 97.5 [degF] Fabien Furlong DO Work Phone: [facility] [facility] 06-23-2024 22:24-0400 Diastolic blood pressure 82 mm[Hg] Fabien Furlong DO Work Phone: [facility] [facility] 06-23-2024 22:24-0400 Heart rate 82 /min Fabien Furlong DO Work Phone: [facility] 06-23-2024 22:24-0400 Respiratory rate 18 /min Fabien Furlong DO Work Phone: [facility] [facility] 06-23-2024 22:24-0400 SaO2% (BldA) [Mass fraction] 94 % Fabien Furlong DO Work Phone: [facility] [facility] 06-23-2024 22:24-0400 Systolic blood pressure 135 mm[Hg] Fabien Furlong DO Work Phone: [facility] 06-09-2024 16:32-0400 Body mass index (BMI) [Ratio] 29.95 kg/m2 Fabien Furlong DO Work Phone: [facility] 06-09-2024 16:32-0400 Body temperature 98.2 [degF] Fabien Furlong DO Work Phone: [facility] [facility] 06-09-2024 16:32-0400 Body weight 86.73 kg Fabien Furlong DO Work Phone: [facility] 06-09-2024 16:32-0400 Diastolic blood pressure 93 mm[Hg] Fabien Furlong DO Work Phone: [facility] 06-09-2024 16:32-0400 Heart rate 92 /min Fabien Spencelong DO Work Phone: [facility] 06-09-2024 16:32-0400 Respiratory rate 18 /min Fabien Spencelong DO Work Phone: [facility] [employer] 06-09-2024 16:32-0400 SaO2% (BldA) [Mass fraction] 93 % Fabien Spencelong DO Work Phone: [facility] [employer] 06-09-2024 16:32-0400 Systolic blood pressure 119 mm[Hg] Fabien Spencelong DO Work Phone: [facility] [employer] 02-05-2024 19:36-0400 Diastolic blood pressure 118 mm[Hg] Suzanne Chan MD Work Phone: [employer] 02-05-2024 19:36-0400 Heart rate 72 /min Suzanne Chan MD Work Phone: [employer] 02-05-2024 19:36-0400 Respiratory rate 21 /min Suzanne Chan MD Work Phone: [employer] 02-05-2024 19:36-0400 SaO2% (BldA) [Mass fraction] 92 % Suzanne Chan MD Work Phone: [employer] 02-05-2024 19:36-0400 Systolic blood pressure 142 mm[Hg] Suzanne Chan MD Work Phone: [employer] 02-05-2024 15:42-0400 Body height 167.6 cm Suzanne Chan MD Work Phone: [employer] 02-05-2024 15:42-0400 Body mass index (BMI) [Ratio] 29.05 kg/m2 Suzanne Chan MD Work Phone: [employer] 02-05-2024 15:42-0400 Body temperature 98.01 [degF] Suzanne Chan MD Work Phone: [facility] 02-05-2024 15:42-0400 Body weight 81.65 kg Suzanne Chan MD Work Phone: [facility] 2023 09:41-0400 Body temperature 96.44 [degF] [facility] Other Phone: 2023 09:41-0400 Body temperature 96.6 [degF] [facility] Other Phone: 2023 09:41-0400 Diastolic blood pressure 85 mm[Hg] [facility] Other Phone: 2023 09:41-0400 Heart rate 65 /min [facility] Other Phone: 2023 09:41-0400 Respiratory rate 20 /min [facility] Other Phone: 2023 09:41-0400 SaO2% (BldA) [Mass fraction] 95 % [facility] Other Phone: 2023 09:41-0400 Systolic blood pressure 138 mm[Hg] [facility] Other Phone: 06-13-2023 02:37-0400 Body height 12.7 cm [facility] Other Phone: 06-13-2023 02:37-0400 Body surface area Derived from formula 2.02 m2 [facility] Other Phone: 06-13-2023 02:37-0400 Body weight 96.1 kg [facility] Other Phone: 06-13-2023 02:37-0400 Body weight 96.07 kg [facility] Other Phone: 06-12-2023 14:28-0400 Diastolic blood pressure 75 mm[Hg] Matt Caldwell MD Work Phone: [facility] 06-12-2023 14:28-0400 Systolic blood pressure 150 mm[Hg] Matt Caldwell MD Work Phone: [facility] 06-12-2023 14:27-0400 Body mass index (BMI) [Ratio] 34.22 kg/m2 Matt Caldwell MD Work Phone: [facility] 06-12-2023 14:27-0400 Body weight 99.11 kg Matt Caldwell MD Work Phone: [facility] 06-12-2023 14:26-0400 Body temperature 99.19 [degF] Matt Caldwell MD Work Phone: [facility] 06-12-2023 14:26-0400 Heart rate 91 /min Matt Caldwell MD Work Phone: [facility] 06-12-2023 14:26-0400 Respiratory rate 18 /min Matt Caldwell MD Work Phone: [facility] 06-12-2023 14:26-0400 SaO2% (BldA) [Mass fraction] 94 % Matt Caldwell MD Work Phone: [facility] 06-11-2023 13:04-0400 Diastolic blood pressure 98 mm[Hg] Rj Agiro DO Work Phone: [employer] 06-11-2023 13:04-0400 Heart rate 86 /min Rj Agiro DO Work Phone: [employer] 06-11-2023 13:04-0400 Respiratory rate 18 /min Rj Agiro DO Work Phone: [employer] 06-11-2023 13:04-0400 Systolic blood pressure 147 mm[Hg] Rj Agiro DO Work Phone: [facility] [employer] 06-11-2023 11:32-0400 SaO2% (BldA) [Mass fraction] 95 % Rj Agiro DO Work Phone: [facility] [employer] 06-11-2023 11:31-0400 Body height 170.2 cm Rj Nicolas DO Work Phone: [facility] [employer] 06-11-2023 11:31-0400 Body mass index (BMI) [Ratio] 33.52 kg/m2 Rj Nicolas DO Work Phone: [facility] [employer] 06-11-2023 11:31-0400 Body temperature 97.9 [degF] Rj Nicolas DO Work Phone: [facility] [employer] 06-11-2023 11:31-0400 Body weight 97.07 kg Rj Nicolas DO Work Phone: [facility] [employer] 02-24-2023 21:00-0400 Diastolic blood pressure 80 mm[Hg] Wallace Garcia DO Work Phone: [facility] [employer] 02-24-2023 21:00-0400 Heart rate 82 /min Wallace Garcia DO Work Phone: [facility] [employer] 02-24-2023 21:00-0400 Respiratory rate 16 /min Wallace Garcia DO Work Phone: [facility] [employer] 02-24-2023 21:00-0400 SaO2% (BldA) [Mass fraction] 97 % Wallace Garcia DO Work Phone: [employer] 02-24-2023 21:00-0400 Systolic blood pressure 132 mm[Hg] Wallace Garcia DO Work Phone: [employer] 02-24-2023 15:39-0400 Body height 170.2 cm Wallace Garcia DO Work Phone: [facility] [employer] 02-24-2023 15:39-0400 Body mass index (BMI) [Ratio] 32.11 kg/m2 Wallace Garcia DO Work Phone: [facility] [employer] 02-24-2023 15:39-0400 Body temperature 97.9 [degF] Wallace Garcia DO Work Phone: [facility] [employer] 02-24-2023 15:39-0400 Body weight 92.99 kg Wallace Garcia DO Work Phone: [facility] [employer] 02-19-2023 23:30-0400 Diastolic blood pressure 68 mm[Hg] Francisco J Cole MD Work Phone: [facility] [employer] 02-19-2023 23:30-0400 Heart rate 81 /min Francisco J Cole MD Work Phone: [facility] [employer] 02-19-2023 23:30-0400 Respiratory rate 18 /min Francisco J Cole MD Work Phone: [facility] [employer] 02-19-2023 23:30-0400 SaO2% (BldA) [Mass fraction] 93 % Francisco J Cole MD Work Phone: [facility] [employer] 02-19-2023 23:30-0400 Systolic blood pressure 110 mm[Hg] Francisco J Cole MD Work Phone: [facility] [employer] 02-19-2023 16:23-0400 Body height 170.2 cm Francisco J Cole MD Work Phone: [facility] [employer] 02-19-2023 16:23-0400 Body mass index (BMI) [Ratio] 32.11 kg/m2 Francisco J Cole MD Work Phone: [facility] [employer] 02-19-2023 16:23-0400 Body temperature 97.7 [degF] Francisco J Cole MD Work Phone: [facility] [employer] 02-19-2023 16:23-0400 Body weight 92.99 kg Francisco J Cole MD Work Phone: [facility] [employer] 10-14-2022 12:52-0500 Diastolic blood pressure 115 mm[Hg] Erick Simpson MD Work Phone: [employer] 10-14-2022 12:52-0500 Heart rate 98 /min Erick Simpson MD Work Phone: [facility] [employer] 10-14-2022 12:52-0500 Respiratory rate 18 /min Erick Simpson MD Work Phone: [facility] [employer] 10-14-2022 12:52-0500 SaO2% (BldA) [Mass fraction] 95 % Erick Simpson MD Work Phone: [facility] [employer] 10-14-2022 12:52-0500 Systolic blood pressure 160 mm[Hg] Erick Simpson MD Work Phone: [facility] [employer] 10-14-2022 12:17-0500 Body height 170.2 cm Erick Simspon MD Work Phone: [facility] [employer] 10-14-2022 12:17-0500 Body mass index (BMI) [Ratio] 36.81 kg/m2 Erick Simpson MD Work Phone: [facility] [employer] 10-14-2022 12:17-0500 Body temperature 97.9 [degF] Erick Simpson MD Work Phone: [facility] [employer] 10-14-2022 12:17-0500 Body weight 106.59 kg Erick Simpson MD Work Phone: [facility] [employer] 09-23-2022 14:04-0500 Body temperature 98.49 [degF] Hillary Parrish MD Work Phone: [facility] [employer] 09-23-2022 14:04-0500 Diastolic blood pressure 98 mm[Hg] Hillary Parrish MD Work Phone: [facility] [employer] 09-23-2022 14:04-0500 Heart rate 113 /min Hillary Parrish MD Work Phone: [facility] [employer] 09-23-2022 14:04-0500 Respiratory rate 25 /min Hillary Prarish MD Work Phone: [facility] [employer] 09-23-2022 14:04-0500 SaO2% (BldA) [Mass fraction] 94 % Hillary Parrish MD Work Phone: [facility] 09-23-2022 14:04-0500 Systolic blood pressure 127 mm[Hg] Hillary Parrish MD Work Phone: [facility] 09-18-2022 23:00-0500 Body height 170.2 cm Hillary Parrish MD Work Phone: [facility] 09-18-2022 23:00-0500 Body mass index (BMI) [Ratio] 36.81 kg/m2 Hillary Parrish MD Work Phone: [facility] [employer] 09-18-2022 23:00-0500 Body weight 106.59 kg Hillary Parrish MD Work Phone: [facility] 05-03-2021 17:32-0400 Body temperature 98.2 [degF] Miguel Kessler MD Work Phone: [facility] 05-03-2021 17:32-0400 Body weight 89.36 kg Miguel Kessler MD Work Phone: [facility] 05-03-2021 17:32-0400 Diastolic blood pressure 64 mm[Hg] Miguel Kessler MD Work Phone: [facility] 05-03-2021 17:32-0400 Heart rate 88 /min Miguel Kessler MD Work Phone: [facility] 05-03-2021 17:32-0400 SaO2% (BldA) [Mass fraction] 96 % Miguel Kessler MD Work Phone: [facility] 05-03-2021 17:32-0400 Systolic blood pressure 124 mm[Hg] Miguel Kessler MD Work Phone: [facility] Encounters Encounter Date Encounter Type Care Provider Facility Start: 06-01-2025 End: 06-01-2025 ambulatory Fabien Macias DO Work Phone: [facility] Start: 06-01-2025 End: 06-01-2025 Nutrition therapy [facility] Comment on above: Wernicke's encephalo lynda (Primary Dx); Chronic obstructive pulmonary disease, unspecified COPD type (CMS-HCC); Protein-calorie malnutrition, unspecified severity Start: 04-20-2025 End: 04-20-2025 Continuing Care Fabien Macias DO [facility] Comment on above: Wernicke's encephalo lynda (Primary Dx); Cognitive impairment; Schizoaffective disorder, unspecified type (CMS-HCC); Parkinson's disease, unspecified whether dyskinesia present, unspecified whether manifestations fluctuate (CMS-HCC); Chronic obstructive pulmonary disease, unspecified COPD type (CMS-HCC) Start: 04-10-2025 End: 04-13-2025 ambulatory Fabien Macias DO Work Phone: [facility] Comment on above: Wernicke's encephalo lynda (Primary Dx); Parkinson's disease, unspecified whether dyskinesia present, unspecified whether manifestations fluctuate (CMS-HCC); Chronic obstructive pulmonary disease, unspecified COPD type (CMS-HCC) Start: 03-09-2025 End: 03-09-2025 ambulatory [facility] Macias DO [facility] Comment on above: Chronic obstructive pulmonary disease, unspecified COPD type (CMS-HCC) (Primary Dx); Wernicke's encephalopathy; Parkinson's disease, unspecified whether dyskinesia present, unspecified whether manifestations fluctuate (CMS-HCC) Start: 01-10-2025 End: 01-10-2025 Continuing Care Fabien aMcias DO [facility] Comment on above: Parkinson's disease, unspecified whether dyskinesia present, unspecified whether manifestations fluctuate (CMS-HCC) (Primary Dx); Chronic obstructive pulmonary disease, unspecified COPD type (CMS-HCC); Wernicke's encephalopathy; Schizoaffective disorder, unspecified type ([facility]-HCC) Start: 12-07-2024 End: 12-16-2024 Continuing Care Fabien Macias DO [facility] Comment on above: Wernicke's encephalo lynda (Primary Dx); Extrapyramidal and movement disorder, unspecified; Stage 2 chronic kidney disease due to benign hypertension; Schizoaffective disorder, unspecified type ([facility]-HCC) Start: 11-07-2024 End: 11-07-2024 ambulatory Fabien Macias DO [facility] Start: 11-07-2024 End: 11-07-2024 Nutrition therapy Fabien Macias DO [facility] Comment on above: Chronic obstructive pulmonary disease, unspecified COPD type ([facility]-HCC) (Primary Dx); Protein-calorie malnutrition, unspecified severity (CMS-HCC); Parkinson's disease, unspecified whether dyskinesia present, unspecified whether manifestations fluctuate ([facility]-HCC); Mild cognitive impairment Start: 10-31-2024 End: 11-08-2024 ambulatory Fabien Macias DO [facility] Start: 10-31-2024 End: 11-08-2024 Nutrition therapy Fabien Macias DO [facility] Comment on above: Parkinson's disease, unspecified whether dyskinesia present, unspecified whether manifestations fluctuate ([facility]-HCC) (Primary Dx); Wernicke's encephalopathy; Mild cognitive impairment; Chronic obstructive pulmonary disease, unspecified COPD type (CMS-HCC); Protein-calorie malnutrition, unspecified severity (CMS-HCC) Start: 10-27-2024 End: 11-02-2024 ambulatory Fabien Macias DO [facility] Comment on above: Wernicke's encephalo lynda (Primary Dx); Chronic obstructive pulmonary disease, unspecified COPD type ([facility]-HCC); Parkinson's disease, unspecified whether dyskinesia present, unspecified whether manifestations fluctuate ([facility]-HCC) Start: 10-17-2024 End: 10-17-2024 Continuing Care Fabien Macias DO Work Phone: [facility] Comment on above: Parkinson's disease, unspecified whether dyskinesia present, unspecified whether manifestations fluctuate (CMS-HCC) (Primary Dx); Wernicke's encephalopathy; Chronic obstructive pulmonary disease, unspecified COPD type (CMS-HCC); Extrapyramidal and movement disorder, unspecified Start: 10-10-2024 End: 10-21-2024 Continuing Care Fabien Macias DO [facility] Comment on above: Parkinson's disease, unspecified whether dyskinesia present, unspecified whether manifestations fluctuate ([facility]-HCC) (Primary Dx); Schizoaffective disorder, unspecified type ([facility]-HCC); Wernicke's encephalopathy; Chronic obstructive pulmonary disease, unspecified COPD type ([facility]-HCC) Start: 10-03-2024 End: 10-15-2024 ambulatory Fabien Macias DO [facility] Comment on above: Chronic obstructive pulmonary disease, unspecified COPD type ([facility]-HCC) (Primary Dx); Parkinson's disease, unspecified whether dyskinesia present, unspecified whether manifestations fluctuate ([facility]-HCC); Mild cognitive impairment; Wernicke's encephalopathy Start: 09-24-2024 End: 09-24-2024 ambulatory Gary Estevez [facility] Work Phone: Start: 09-24-2024 End: 09-24-2024 Departed Referred Gary Estevez DO Work Phone: [facility] Start: 08-11-2024 End: 08-11-2024 ambulatory Fabien Macias DO Work Phone: [facility] Comment [...] (CMS-HCC); Wernicke's encephalopathy Start: 07-06-2024 [facility] Start: 07-04-2024 End: 07-04-2024 Continuing Care [...] 06-26-2024 ambulatory Fabien Macias DO Work Phone: [facility] Comment on above: Wernicke's encephalo lynda (Primary Dx); Chronic obstructive pulmonary disease, unspecified COPD type (CMS-HCC); Parkinson's disease, unspecified whether dyskinesia present, unspecified whether manifestations fluctuate (CMS-HCC); Stage 2 chronic kidney disease due to benign hypertension; Mild cognitive impairment Start: 06-09-2024 End: 06-23-2024 Continuing Care Fabien Macias DO [facility] Comment on above: Schizoaffective diso rder, bipolar type ([facility]-HCC) (Primary Dx); Wernicke's encephalopathy; Chronic obstructive pulmonary disease, unspecified COPD type ([facility]); Parkinson's disease, unspecified whether dyskinesia present, unspecified whether manifestations fluctuate ([facility]); Nicotine dependence, cigarettes, uncomplicated; Extrapyramidal and movement disorder, unspecified; Iliotibial band syndrome, unspecified laterality; Stage 2 chronic kidney disease due to benign hypertension; Class 1 obesity due to excess calories with serious comorbidity in adult, unspecified BMI; Convulsions, unspecified convulsion type ([facility]); Hyperplasia of prostate without lower urinary tract symptoms (LUTS); White matter disease; Gastroesophageal reflux disease, unspecified whether esophagitis present; Mild cognitive impairment Start: 04-20-2024 ambulatory [facility] Start: 03-15-2024 ambulatory [facility] Start: 03-03-2024 End: 03-03-2024 ambulatory GUADALUPE Multani [facility] Start: 02-28-2024 End: 02-28-2024 Subsequent hospital visit by physician Mavis Gonzales MD Work Phone: [facility] Comment on above: Arrived Start: 02-28-2024 End: 03-01-2024 ambulatory MAVIS GONZALES [facility] Start: 02-10-2024 End: 02-10-2024 ambulatory PIYUSH Multani [facility] Start: 02-05-2024 End: 02-05-2024 Emergency department patient visit Suzanne Chan MD Work Phone: [facility] Comment on above: Chest pain, unspecif ied type (Primary Dx) Start: 11-17-2023 ambulatory Jared Mendez acility:[facility] Start: 10-29-2023 ambulatory [facility] Start: 10-29-2023 End: 10-29-2023 Home visit est pt mod-hi severity 40 minutes Miguel Kessler MD Work Phone: [facility] Comment on above: Hypertensive heart d isease without heart failure (Primary Dx); Cigarette nicotine dependence in remission; Gastroesophageal reflux disease without esophagitis; COPD, mild; Parkinson's disease without dyskinesia or fluctuating manifestations; Seizure disorder; Severe alcohol use disorder, in sustained remission; Mild cognitive impairment Start: 08-24-2023 End: 08-24-2023 Emergency department patient visit PIYUSH KEANE [facility] Start: 08-24-2023 Encounter for genera l adult medical examination without abnormal findings [facility] Start: 07-02-2023 ambulatory [facility] Start: 07-02-2023 End: 07-02-2023 Home visit est pt mod-hi severity 40 minutes Miguel Kessler MD Work Phone: [facility] Comment on above: Hypertensive heart d isease [...] End: 06-24-2023 Evaluation and management of inpatient [facility] Start: 06-12-2023 End: 06-12-2023 Emergency department patient visit [facility] Start: 06-12-2023 End: 06-12-2023 Emergency department patient visit Matt Caldwell MD Work Phone: [facility] Emergency Medicine Start: 06-12-2023 End: 06-24-2023 ambulatory [facility] Start: 06-11-2023 End: 06-11-2023 Emergency department patient visit Rj Nicolas DO Work Phone: [facility] Comment on above: Parkinson disease (H CC) (Primary Dx); General weakness Start: 05-28-2023 ambulatory MIGUEL EFLIZDARRELL [facility] Start: 05-28-2023 End: 05-28-2023 Home visit est pt mod-hi severity 40 minutes Miguel Kessler MD Work Phone: [facility] Comment on above: Hypertensive heart d isease without heart failure (Primary Dx); COPD, mild; Seizure disorder; Parkinson's disease; Cigarette nicotine dependence in remission; Gastroesophageal reflux disease without esophagitis; Severe alcohol use disorder, in sustained remission Start: 04-02-2023 ambulatory MIGUEL KESSLER [facility] Start: 04-02-2023 End: 04-02-2023 Home visit est pt mod-hi severity 40 minutes Miguel Kessler MD Work Phone: [facility] Comment on above: Intractable chronic migraine without aura and without status migrainosus (Primary Dx); Mass of joint of right shoulder; Hypertensive heart disease without heart failure; COPD, mild; Cigarette nicotine dependence in remission; Seizure disorder; Gastroesophageal reflux disease without esophagitis; Parkinson's disease; Physical debility; Severe alcohol use disorder, in sustained remission Start: 02-26-2023 End: 02-26-2023 Emergency department patient visit [facility] Start: 02-26-2023 ambulatory MIGUEL SANTIAGOCRISTOFERDARRELL [facility] Start: 02-26-2023 End: 02-26-2023 Home visit est pt mod-hi severity 40 minutes Miguel Kessler MD Work Phone: [facility] Comment on above: Lethargy (Primary Dx ); Hypertensive heart disease without heart failure; Dizziness; Generalized weakness; COPD, mild; Physical debility; Seizure disorder; Gastroesophageal reflux disease without esophagitis; Parkinson's disease; Severe alcohol use disorder, in sustained remission; Cigarette nicotine dependence in remission Start: 02-24-2023 End: 02-24-2023 Emergency department patient visit Wallace Garcia DO Work Phone: [facility] Comment on above: Acute pain of right hip (Primary Dx); Osteoarthritis of right hip, unspecified osteoarthritis type Start: 02-19-2023 End: 02-20-2023 Emergency department patient visit Francisco J Cole MD Work Phone: [facility] Comment on above: Nonspecific abdomina l pain (Primary Dx) Start: 01-29-2023 ambulatory MIGUEL KESSLER [facility] Start: 10-14-2022 End: 10-14-2022 Emergency department patient visit Erick Simpson MD Work Phone: [facility] Comment on above: Feared complaint wit hout diagnosis (Primary Dx); Essential hypertension Start: 10-02-2022 End: 10-02-2022 Home visit est pt mod-hi severity 40 minutes Miguel Kessler MD Work Phone: [facility] Comment on above: Influenza A H1N1 inf [...] of inpatient Hillary Parrish MD Work Phone: [facility] 8A Comment on above: COPD exacerbation (H CC) (Primary Dx); Influenza with respiratory manifestation other than pneumonia; Acute on chronic respiratory failure with hypoxia (HCC) Start: 07-03-2022 End: 07-03-2022 Dom/r-home e/m est pt mod hi severity 40 minutes Miguel Kessler MD Work Phone: [facility] Comment on above: Grief reaction (Prim maria [...] End: 01-27-2020 Patient encounter procedure KENAGUADALUPE KEANE Facility:[facility] Start: 06-16-2019 End: 06-16-2019 Patient encounter procedure [...] End: 06-12-2023 EKG 12 channel panel Ben Birdlisa Other Phone: Start: 06-12-2023 Iadna nos amplified probe tq each organism Matt Caldwell MD Work Phone: Start: 06-12-2023 INFLUENZA A/B ANTIGEN,DNA Matt Caldwell MD Work Phone: Start: 06-12-2023 Colonoscopy Colonoscopy MANUELA AL EXANDER Start: 06-11-2023 Ecg routine ecg w/le ast [...] Work Phone: Start: 06-11-2023 Hepatic function panel Vahe Ribeiro MD Work Phone: Start: 06-11-2023 LACTATE, SEPSIS Vahe Ribeiro MD Work Phone: Start: 02-24-2023 Ct lower extremity w /o contrast material Wallace Garcia DO Work Phone: Start: 02-24-2023 Radex hip [...] stick/tabl et reagent auto microscopy Harry Counts [employer] Work Phone: Start: 10-14-2022 Anion gap [Moles/Vol] C asey Counts [employer] Work Phone: Start: 10-14-2022 Basic metabolic pane l calcium total Harry Counts [employer] Work Phone: Start: 10-14-2022 GLOMERULAR FILTRATIO N RATE, ESTIMATED Harry Counts [employer] Work Phone: Start: 10-14-2022 Hepatic function panel Harry Counts [employer] Work Phone: Start: 09-23-2022 Gluc bld gluc mntr d ev cleared fda spec home use Jorge Hernandez PA-C Work Phone: Start: 09-23-2022 Ct angiography chest w/contrast/noncontrast Alice A Rethman FOREST PATROLMAN - CONTROL CLERK AUDITING Work Phone: Start: 09-23-2022 HOME O2 EVAL (DESATU RATION SCREEN) Jorge HUNTC Work Phone: Start: 09-22-2022 Gluc bld gluc mntr d ev cleared fda spec home use Alice A Rethman FOREST PATROLMAN - CONTROL CLERK AUDITING Work Phone: Start: 09-22-2022 Anion gap [Moles/Vol] H eather A Rethman FOREST PATROLMAN - CONTROL CLERK AUDITING Work Phone: Start: 09-22-2022 BASIC METABOLIC PANE L W/ REFLEX TO MG FOR LOW K Alice A Rethman FOR[employer]MAN - CONTROL CLERK AUDITING Work Phone: Start: 09-22-2022 Blood count complete automated Alice A Rethman FOREST PATROLMAN - CONTROL CLERK AUDITING Work Phone: Start: 09-22-2022 GLOMERULAR FILTRATIO N RATE, ESTIMATED Alice A Rethman FOREST [employer]MAN - CONTROL CLERK AUDITING Work Phone: Start: 09-21-2022 Gluc bld gluc mntr d ev cleared fda spec home use Alice A Rethman FOR[employer]MAN - CONTROL CLERK AUDITING Work Phone: Start: 09-20-2022 Anion gap [Moles/Vol] H eather A Rethman FOREST PATROLMAN - CONTROL CLERK AUDITING Work Phone: Start: 09-20-2022 BASIC METABOLIC PANE L W/ REFLEX TO MG FOR LOW K Alice A Rethman FOREST [employer]ROLMAN - CONTROL CLERK AUDITING Work Phone: Start: 09-20-2022 Blood count complete automated Alice A Rethman FOR[employer]ROLMAN - CONTROL CLERK AUDITING Work Phone: Start: 09-20-2022 GLOMERULAR FILTRATIO N RATE, ESTIMATED Alice A Rethman FOREST PATROLMAN - CONTROL CLERK AUDITING Work Phone: Start: 09-19-2022 Potassium serum plasma/whole blood Alice Rollins FOREST PATROLMAN - CONTROL CLERK AUDITING Work Phone: Start: 09-19-2022 Anion gap [Moles/Vol] A mbcandelaria Sepulveda Artoo PA-C Work Phone: Start: 09-19-2022 BASIC METABOLIC PANE L W/ REFLEX TO MG FOR LOW K Jocelin Sepulveda Artoo PA-C Work Phone: Start: 09-19-2022 Blood count complete auto&auto difrntl wbc Jocelin Sepulveda Artoo PA-C Work Phone: Start: 09-19-2022 GLOMERULAR FILTRATIO N RATE, ESTIMATED Jocelin Sepulveda Artoo PA-C Work Phone: Start: 09-18-2022 Radiologic exam ches [...] Comment on above: Performed By: #### C #### [facility] [address] [place] [address] She Magana Plan of Treatment Date Care Activity Detail Author Start: 04-20-2026 Adult BMI Screening Adult BMI Screening [facility] Start: 04-10-2026 Adult BMI Screening Adult BMI Screening [facility] Start: 03-09-2026 Adult BMI Screening Adult BMI Screening [facility] Start: 02-09-2026 Adult BMI Screening Adult BMI Screening [facility] Start: 12-07-2025 Adult BMI Screening Adult BMI Screening [facility] Start: 10-27-2025 Adult BMI Screening Adult BMI Screening [facility] Start: 09-06-2025 Adult BMI Screening Adult BMI Screening [facility] Start: 06-27-2025 Adult BMI Screening Adult BMI Screening [facility] Start: 06-09-2025 Adult BMI Screening Adult BMI Screening [facility] Start: 05-21-2025 Influenza vaccination Influenza Vaccine [facility] Start: 09-24-2024 Bacteria identified in Urine by Culture Urine Culture [facility] Start: 09-24-2024 Urine culture [facility] Start: 05-21-2024 Influenza vaccination Influenza Vaccine [facility] Start: 04-20-2024 Influenza vaccination Flu vaccine (Season Ended) [facility] Start: 03-03-2024 End: 03-03-2024 Patient encounter procedure 03/03/2024 10:15 AM EDT Office Visit [facility] [address] [place] [address] Mavis Gonzales MD [address] [address] f/u after testing [facility] Comment on above: f/u after testing Start: 02-10-2024 End: 02-10-2024 Patient encounter procedure 02/10/2024 10:00 AM EDT Office Visit [facility] [address] [address] [facility] Start: 08-16-2023 Annual Wellness Visit (Medicare) Annual Wellness Visit (Medicare) [facility] [employer] Start: 2023 [place]. [place]. Start: [id number] Request [facility] Other Phone: Start: 06-13-2023 Blood count complete automated CBC Date: 13-Jun-2023 Comments: 9/24/23: wnl: ldl 46, a1c, F, abnl: [id number] [facility] Other Phone: Comment on above: 06/13/23: wnl: ldl 46, a1c, F, abnl: [id number] Start: 05-21-2023 COVID-19 VACCINE ( season) COVID-19 VACCINE ( season) [facility] Start: 05-21-2023 Influenza vaccination [facility] Start: 04-20-2023 Influenza vaccination [facility] Start: 05-21-2022 Influenza vaccination INFLUENZA VACCINE (#1) [facility] Start: 04-20-2022 Influenza vaccination Flu vaccine (#1) [facility] Start: 03-05-2022 COVID-19 VACCINE (5 - Booster for Moderna series) COVID-19 VACCINE (5 - Booster for Moderna series) [facility] Start: 03-05-2022 COVID-19 VACCINE (5 - Moderna series) COVID-19 VACCINE (5 - Moderna series) [facility] Start: 06-19-2021 COVID-19 VACCINE (3 - Booster for Moderna series) COVID-19 VACCINE (3 - Booster for Moderna series) [facility] Start: 05-21-2021 Influenza vaccination INFLUENZA VACCINE (#1) [facility] Start: 05-19-2021 COVID-19 VACCINE (3 - Booster for Moderna series) COVID-19 VACCINE (3 - Booster for Moderna series) [facility] Start: 03-31-2021 Annual Wellness Visit (AWV) Annual Wellness Visit (AWV) [facility] Start: 02-11-2021 COVID-19 VACCINE (3 - Booster for Moderna series) COVID-19 VACCINE (3 - Booster for Moderna series) [facility] Start: 02-11-2021 COVID-19 Vaccine (3 - Moderna series) COVID-19 Vaccine (3 - Moderna series) [facility] Start: 2018 Abdominal aortic aneurysm screening [facility] Start: 2018 Fall Risk Screening Fall Risk Screening [facility] Start: 2018 Pneumococcal vaccination [facility] Start: 2013 Respiratory Syncytial Virus (RSV) or age 60 yrs+ (1 - 1-dose 60+ series) Respiratory Syncytial Virus (RSV) or age 60 yrs+ (1 - 1-dose 60+ series) [facility] Start: 2003 Administration of varicella zoster vaccine Zoster (Shingles) Vaccine (1 of 2) [facility] Start: 2003 Prostate specific antigen measurement PROSTATE CANCER SCREENING DISCUSSION [facility] Start: 2003 Shingles vaccine (1 of 2) Shingles vaccine (1 of 2) [facility] Start: 2003 Zoster vaccine hzv live for subcutaneous use ZOSTER (SHINGLES) VACCINE (1 of 2) [facility] Start: 1998 Colonoscopy COLORECTAL CANCER SCREENING DISCUSSION [facility] Start: 1998 Screening for malignant neoplasm of colon [facility] Start: 1993 Fasting lipid profile LIPID SCREENING [facility] Start: 1993 Lipid panel LIPID SCREENING [facility] Start: 1988 Diabetes screen Diabetes screen [facility] Start: 1972 DTaP,Tdap and Td Vaccines (1 - Tdap) DTaP,Tdap and Td Vaccines (1 - Tdap) [facility] Start: 1972 DTaP/Tdap/Td vaccine (1 - Tdap) DTaP/Tdap/Td vaccine (1 - Tdap) [facility] Start: 1972 Third diphtheria, tetanus and acellular pertussis (DTaP) vaccination TDAP (ADULT) [facility] Start: 1971 Hepatitis C screening Hepatitis C screen [facility] Start: 1971 Tetanus vaccination TETANUS [facility] Start: 1965 Depression Monitoring Depression Monitoring [facility] Start: 1965 Depression Screening Depression Screening [facility] Start: 1965 Tobacco Screening Tobacco Screening [facility] Start: 1963 Lipid panel Lipids [facility] Start: 1959 Pneumococcal 65+ years Vaccine (1 - PCV) Pneumococcal 65+ years Vaccine (1 - PCV) [facility] Start: 1959 Pneumococcal 65+ years Vaccine (1 of 2 - PCV) Pneumococcal 65+ years Vaccine (1 of 2 - PCV) [facility] Start: 1959 Pneumococcal vaccination [facility] Start: 1953 Hepatitis B vaccination HEP B VACCINE (1 of 3 - 3-dose series) [facility] Start: 1953 Hepatitis C antibody, confirmatory test HEPATITIS C VIRUS SCREENING [facility] Start: 1953 Hepatitis C screening HEPATITIS C VIRUS SCREENING [facility] Start: 1953 Tetanus vaccination TETANUS [facility] Acapella Acapella Respira tory Care Routine Daily until discontinued starting 09/19/2022 [employer] Phone: Comment on above: Daily until discontinued starting 2021 Arthroscopy shoulder rotator cuff repair Arthroscopy of left shoulder with repair of rotator cuff [facility] Other Phone: Colonoscopy flx dx w/collj spec when pfrmd Colonoscopy [facility] Other Phone: EKG 12 Lead EKG 12 Lead ECG STAT 06/11/2023 12:31 PM EDT [facility] EKG Emergency EKG Emergency EC G STAT 02/05/2024 3:35 PM EDT [facility] End: 02-19-2023 Gastrointestinal Panel, Molecular Gastrointestinal Panel, Molecular Microbiology STAT One Time for 1 Occurrences starting 02/19/2023 until 02/19/2023 [employer] Phone: Comment on above: One Time for 1 Occurrences starting 10/2022 until 02/19/2023 Initiate RT Inhaler-Nebulizer Bronchodilator Protocol Initiate RT Inhaler-Nebulizer Bronchodilator Protocol Respiratory Care Routine BID until discontinued starting 09/19/2022 [employer] Phone: Comment on above: BID until discontinued starting 09/19/20 Oxygen therapy [[facility] Data Set] Initiate Oxygen Therapy Protocol Respiratory Care Routine As Needed until discontinued starting 09/18/2022 [employer] Phone: Comment on above: As Needed until discontinued starting R & l hrt cath w/njx l ventriculog img s&i Complete cardiac catheterization [facility] Other Phone: [facility] Other Phone: Immunizations Immunization Date Immunization Notes Care Provider Shaunna pardo 12-17-2020 SARS-COV-2 (COVID-19 ), Mrna, Lnp-s, Pf, 100 Mcg/ 0.5 Ml Dose MARIO Kessler MD Work Phone: [facility] 11-19-2020 SARS-COV-2 (COVID-19 ), Mrna, Lnp-s, Pf, 100 Mcg/ 0.5 Ml Dose MARIO Kessler MD Work Phone: [facility] Payers Date Payer Category Payer Medicare HMO [id number] 2023 Self-pay 2021 Medicaid MEDICAID MEDICAI D [id number] 2021-Present [address] [place] [address] [id number] 2021 Medicare MEDICARE MEDICAR E A AND B [id number] 2021-Present [address] [place] [address] [id number] 2018 Medicaid [id number]. [id number] 2018 Medicare [id number]. [id number] 2018 Unknown 1959 Medicaid [id number] 1959 Medicare [id number] 1955 Unknown [id number] 2.16.840.1.415120.3.579.2.593 1953 Unknown [id number] 2.16.840.1.995127.3.579.2.593 1953 Unknown [id number] 2.16.840.1.074111.3.579.2.593 1953 Unknown [id number] 2.16.840.1.394874.3.579.2.111 1953 Unknown [id number] 2.16.840.1.989325.3.579.2.111 1953 Unknown [id number] 2.16.840.1.676334.3.579.2.111 1953 Unknown [id number] 2.16.840.1.860368.3.579.2.111 1953 Unknown [id number] 2.16.840.1.954152.3.579.2.111 1953 Unknown [id number] 2.16.840.1.801229.3.579.2.111 1953 Unknown [id number] 2.16.840.1.436127.3.579.2.111 1953 Unknown [id number] 2.16.840.1.523518.3.579.2.111 1953 Unknown [id number] 2.16.840.1.655028.3.579.2.93 1953 Unknown [id number] 2.16.840.1.411149.3.579.2.93 1953 Unknown [id number] 2.16.840.1.276909.3.579.2.93 1953 Unknown [id number] 2.16.840.1.058474.3.579.2.93 1953 Unknown [id number] 2.16.840.1.785813.3.579.2.93 1953 Unknown [id number] 2.16.840.1.167220.3.579.2.93 1953 Unknown [id number] 2.16.840.1.240864.3.579.2.93 1953 Unknown [id number] 2.16.840.1.573825.3.579.2.93 1953 Unknown [id number] 2.16.840.1.727566.3.579.2.93 1953 Unknown [id number] 2.16.840.1.219232.3.579.2.93 1953 Unknown [id number] 2.16.840.1.302992.3.579.2.179 1953 Unknown [id number] 2.16.840.1.217050.3.579.2.179 Medicaid [employer] Medicaid [id number] 500 [id number] Unknown [id number] 2.16.840.1.096280.3.579.2.531 Unknown [id number] 2.16.840.1.090080.3.579.2.531 Social History Date Type Detail Facility Start: 05-03-2021 End: 02-24-2023 Tobacco smoking status UTIS Smokes tobacco daily [facility] Start: 05-03-2021 End: 02-24-2023 Tobacco use and exposure Smokeless tobacco non-user [facility] Start: 1955 Sex Assigned At Not on file V [facility] Start: 11-18-2021 End: 10-14-2022 Exposure to SARS-CoV-2 (event) Not sure [facility] History of tobacco use Cigarette Smoker B ON [employer] Work Phone: Start: 10-31-2020 End: 05-28-2021 Cigarettes smoked current (pack per day) - Reported 0.3 [facility] Start: 09-18-2022 End: 02-10-2024 Alcohol intake Ex-drinker (finding) [facility] Work Phone: Start: 09-19-2022 History SDOH Alcohol Frequency 1 [facility] Work Phone: Start: 09-19-2022 History SDOH Alcohol Std Drinks 0 [employer] Work Phone: Start: 10-31-2020 End: 02-26-2023 Tobacco use panel [facility] How often to you hav e a drink containing alcohol? Never BON [employer] How many standard drinks containing alcohol do you have on a typical day? Patient does not drink [facility] Start: 06-11-2023 Alcohol Comment quit 1.5 years ago B ON [employer] Start: 06-13-2023 Ex-smoker [facility] Other Phone: Tobacco smoking stat us NHIS Unknown if ever smoked [facility] Start: 09-25-2024 Sex Patient sex un known (finding) [facility] Start: 1955 Sex Assigned At Male F [facility] Start: 04-25-2015 Sex Male (finding) [facility] Functional Status Date Assessment Result Facility NEGATED: Highlighted row Functio nal Status excluded/not available [facility] Other Phone: Mental Status Date Assessment Result Facility Mental Status ex cluded/not available Mental Status excluded/not available [facility] Other Phone: Clinical Notes 05-02-2021 to 06-01-2025 Fabien Macias, DO - 06/01/2025 3:06 PM Kristine aMcias, DO - 04/20/2025 3:50 PM Kristine Macias, DO - 04/10/2025 11:59 PM Kristine Macias, DO - 03/09/2025 3:30 PM EDTAttachments Note Date & Type Note Facility 06-01-2025 History of Present illness Narrative Patient Name: Sana Stanley Date of : 1955 Date of Service: 06/01/2025 Facility: [facility] Type of Visit: Subsequent Visit Subjective Sana Stanley is a 69 y.o. male seen today at [facility] for monthly visit. Dave has been laying himself on the floor lately. There were no injuries. Psych was managing his lithium but it was difficult to get an appropriate level so they stopped it. No new medical issues. Allergies: Patient has no known allergies. Code Status: [facility] BP 152/74 Pulse 57 Temp 36.6 C (97.8 F) Resp 20 Wt 94.8 kg (209 lb) SpO2 94% BMI 32.73 kg/m Physical Exam Vitals reviewed. Constitutional: General: He is sleeping. He is not in acute distress. Appearance: He is obese. He is not ill-appearing. Comments: Sleeping in wheelchair in room Cardiovascular: Rate and Rhythm: Normal rate and regular rhythm. Heart sounds: Normal heart sounds. Pulmonary: Effort: Pulmonary effort is normal. No respiratory distress. Breath sounds: Normal breath sounds. No wheezing, rhonchi or rales. Comments: Wearing O2 Abdominal: General: Bowel sounds are normal. Palpations: Abdomen is soft. Tenderness: There is no abdominal tenderness. Neurological: Mental Status: He is easily aroused. He is disoriented. Psychiatric: Attention and Perception: Attention normal. Mood and Affect: Affect is flat. Speech: Speech is delayed. Behavior: Behavior is slowed. Labs: H/H 12.1/36.1 GFR 133 T. Port 5.4-L [place] 3.3-L Assessment/Plan Summary / Assessment / Plan 1. Wernicke's encephalopathy 2. Chronic obstructive pulmonary disease, unspecified COPD type (CMS-HCC) 3. Protein-calorie malnutrition, unspecified severity Medically stable. Continue current regimen. All medications reviewed and are medically necessary. ELECTRONICALLY SIGNED BY: Fabien Macias DO documented in this encounter [employer] 04-20-2025 History of Present illness Narrative Patient Name: Sana Stanley Date of : 1955 Date of Service: 04/20/2025 Facility: [facility] Type of Visit: Acute Visit Subjective Sana Stanley is a 69 y.o. male seen today at [facility] for problem and monthly visit. Facility asked [...] math. Psychiatric problems are being managed by [employer]. Allergies: Patient has no known allergies. Code Status: [facility] BP 108/74 Pulse 92 Temp 36.6 C [...] Cognitive impairment 3. Schizoaffective disorder, unspecified type (CMS-HCC) 4. Parkinson's disease, unspecified whether dyskinesia present, unspecified whether manifestations fluctuate ([facility]) 5. Chronic obstructive pulmonary disease, unspecified COPD type ([facility]) Forms filled out for his rep payee as he is unable to manage his own finances due to Wernicke's encephalopathy and cognitive impairment. There is no cure which will reverse his deficits. His condition will only likely worsen over time. Medically stable. Appreciate psych management by [employer]. All medications reviewed and are medically necessary. ELECTRONICALLY SIGNED BY: Fabien Macias DO documented in this encounter [employer] 04-10-2025 History of Present illness Narrative Patient Name: Sana Stanley Date of : 1955 Date of Service: 04/10/2025 Facility: [facility] Type of Visit: Subsequent Visit Subjective Sana Stanley is a 69 y.o. male seen today at [facility] for regular visit. No new problems reported by staff or patient. Allergies: Patient has no known allergies. Code Status: [facility] BP 135/89 Pulse 70 Temp 36.7 [...] whether dyskinesia present, unspecified whether manifestations fluctuate ([facility]) 3. Chronic obstructive pulmonary disease, unspecified COPD type ([facility]) Medically stable. Continue current regimen. All medications reviewed and are medically necessary. ELECTRONICALLY SIGNED BY: Fabien Macias DO documented in this encounter [facility] [employer] 03-09-2025 History of Present illness Narrative Patient Name: Sana Stanley Date of : 1955 Date of Service: 03/09/2025 Facility: [facility] Type of Visit: Subsequent Visit Subjective Sana Stanley is a 69 y.o. male seen today at [facility] for regular monthly visit. No new problems reported by staff or patient. He denies chest pain, shortness a breath or pain. He does admit that he is sleepy today. Allergies: Patient has no known allergies. Code Status: [facility] BP 127/77 Pulse 82 Temp 36.2 C [...] pulmonary disease, unspecified COPD type (CMS-HCC) 2. Wernicke's encephalopathy 3. Parkinson's disease, unspecified whether dyskinesia present, unspecified whether manifestations fluctuate (CMS-HCC) Medically stable. Continue current regimen. Check CMP, CBC, lithium level in May All medications reviewed and are medically necessary ELECTRONICALLY SIGNED BY: Fabien Macias DO documented in this encounter [facility] 01-10-2025 History of Present illness Narrative Patient Name: Sana Stanley Date of : 1955 Date of Service: 01/10/2025 Facility: [facility] Type of Visit: Subsequent Visit Subjective Sana Stanley is a 69 y.o. male seen today at [facility] facility for regular visit. No new problems reported by staff or patient. He denies shortness a breath. Allergies: Patient has no known allergies. Code Status: [facility] Physical Exam Vitals reviewed. Exam conducted with a blow pit operator present (Brain Roblero MS 3). Constitutional: General: [...] present, unspecified whether manifestations fluctuate (CMS-HCC) 2. Chronic obstructive pulmonary disease, unspecified COPD type (CMS-HCC) 3. Wernicke's encephalopathy 4. Schizoaffective disorder, unspecified type (CMS-HCC) Medically stable. Continue current regimen. All medications reviewed and are medically necessary. Psychiatry service is managing his psychiatric medications. Appreciate their management. ELECTRONICALLY SIGNED BY: Fabien Macias DO documented in this encounter [employer] 12-07-2024 History of Present illness Narrative Patient Name: Sana Stanley Date of : 1955 Date of Service: 12/07/2024 Facility: [facility] Type of Visit: Subsequent Visit Subjective Sana Stanley is a 69 y.o. male seen today at [facility] for regular monthly visit. No new problems reported by staff or patient. Allergies: Patient has no known allergies. Code Status: [facility] BP 124/70 Pulse 82 Temp 37 C [...] Fabien Macias DO documented in this encounter [employer] 11-07-2024 History of Present illness Narrative Patient Name: Sana Stanley Date of : 1955 Date of Service: 11/07/2024 Facility: [facility] Type of Visit: Skilled Visit Subjective Sana Stanley is a 69 y.o. male seen today at [facility] facility for therapy visit. Sana is still in therapy. He feels that he is getting better. He has no new problems to report. Staff does not have any new concerns for me. Allergies: Patient has no known allergies. Code Status: [facility] BP (!) 122/98 Pulse 110 SpO2 98% Physical Exam Vitals reviewed. Exam conducted with a blow pit operator present (Priyank Byrd MS 3). Constitutional: General: [...] Chronic obstructive pulmonary disease, unspecified COPD type ([facility]) 2. Protein-calorie malnutrition, unspecified severity (CMS-HCC) 3. Parkinson's disease, unspecified whether dyskinesia present, unspecified whether manifestations fluctuate (CMS-HCC) 4. Mild cognitive impairment Continue therapy to reach maximum improvement. Medically stable. Continue current regimen. All medications reviewed and are medically necessary. ELECTRONICALLY SIGNED BY: Fabien Macias DO documented in this encounter [employer] 10-31-2024 History of Present illness Narrative Patient Name: Sana Stanley Date of : 1955 Date of Service: 10/31/2024 Facility: [facility] Type of Visit: Skilled Visit Subjective Sana Stanley is a 69 y.o. male seen today at [facility] facility for therapy visit. Dave is in therapy. No new problems are reported by staff or patient. He is getting physical, occupational and speech therapy. Good participation was noted. Allergies: Patient has no known allergies. Code Status: [facility] BP 147/69 Pulse 92 SpO2 90% Physical Exam Vitals reviewed. Exam conducted with a blow pit operator present (Priyank Byrd MS 3). Constitutional: General: [...] whether dyskinesia present, unspecified whether manifestations fluctuate ([facility]) 2. Wernicke's encephalopathy 3. Mild cognitive impairment 4. Chronic obstructive pulmonary disease, unspecified COPD type ([facility]) 5. Protein-calorie malnutrition, unspecified severity ([facility]) Continue therapy to reach maximum improvement. Medically stable. Continue current regimen. ELECTRONICALLY SIGNED BY: Fabien Macias DO documented in this encounter [employer] 10-27-2024 History of Present illness Narrative Patient Name: Sana Stanley Date of : 1955 Date of Service: 10/27/2024 Facility: [facility] Type of Visit: Skilled Visit Subjective Sana Stanley is a 69 y.o. male seen today at [facility] for therapy visit. Dave is in therapy still. They are working on balance, strengthening, transfers and mobility. They also working with him for self-care tasks. Speech is focusing on safe swallowing strategies and improving oral strengthening to increase mastication for improve swallowing. He denies any new problems today. Staff reports no new problems. Allergies: Patient has no known allergies. Code Status: [facility] BP (!) 150/91 Pulse 81 Wt 90.3 kg (199 lb) SpO2 95% BMI 31.17 kg/m Physical Exam Vitals reviewed. Exam conducted with a blow pit operator present (Priyank Byrd MS 3). Constitutional: General: [...] Fabien Macias DO documented in this encounter [employer] 10-17-2024 History of Present illness Narrative Patient Name: Sana Stanley Date of : 1955 Date of Service: 10/17/2024 Facility: [facility] Type of Visit: Skilled Visit Subjective Sana Stanley is a 69 y.o. male seen today at [facility] facility for therapy visit. June is in therapy. They are working on ambulation , balance and strengthening. Speech is focusing on swallowing strategies. Staff reports no new problems. Allergies: Patient has no known allergies. Code Status: [facility] BP 134/69 Pulse 72 Temp 36.5 C (97.7 F) Resp 18 SpO2 94% Physical Exam Vitals reviewed. Exam conducted with a blow pit operator present (Carisa Aly MS 3). Constitutional: General: [...] whether dyskinesia present, unspecified whether manifestations fluctuate ([facility]) 2. Wernicke's encephalopathy 3. Chronic obstructive pulmonary disease, unspecified COPD type ([facility]) 4. Extrapyramidal and movement disorder, unspecified Continue therapy to reach maximum improvement. Medically stable. Continue current regimen. All medications reviewed and are medically necessary. ELECTRONICALLY SIGNED BY: Fabien Macias DO documented in this encounter [facility] [employer] 10-10-2024 History of Present illness Narrative Patient Name: Sana Stanley Date of : 1955 Date of Service: 10/10/2024 Facility: [facility] [place] Type of Visit: Skilled Visit Subjective Sana Stanley is a 69 y.o. male seen today at [facility] facility for therapy visit. Dave is in therapy and is participating. He was referred due to a recent fall. He is walking 15 ft with a 4 wheeled walker with standby assistance. Speech is focusing on safe swallowing strategies. There are no new medical problems to report. Allergies: Patient has no known allergies. Code Status: [facility] Objective BP 138/77 Pulse 77 Temp 36.4 C (97.6 F) Resp 20 SpO2 97% Physical Exam Vitals reviewed. Exam conducted with a blow pit operator present (Carisa Aly MS 3). Constitutional: General: [...] Fabien Macias DO documented in this encounter [facility] [employer] 10-03-2024 History of Present illness Narrative Patient Name: Sana Stanley Date of : 1955 Date of Service: 10/03/2024 Facility: [facility] [place] Type of Visit: Skilled Visit Subjective Sana Stanley is a 69 y.o. male seen today at [facility] facility for therapy visit. Dave is in physical therapy. He was referred because of a recent fall, decline in mobility and transfers and recent change in swallowing. He has no new problems to report. Nursing has no new concerns. Allergies: Patient has no known allergies. Code Status: [facility] BP 127/68 Pulse 82 Temp 36.8 C (98.3 F) Resp 20 SpO2 98% Physical Exam Vitals reviewed. Exam conducted with a blow pit operator present (Carisa Aly MS 3). Constitutional: General: [...] Fabien Macias DO [facility] History of Present illness Narrative Patient Name: Sana Stanley Date of : 1955 Date of Service: 08/11/2024 Facility: [facility] Type of Visit: Subsequent Visit Subjective Sana Stanley is a 69 y.o. male seen today at [facility] facility for monthly visit. No new problems reported by staff or patient. He denies pain. Appetite is good. Allergies: Patient has no known allergies. Code Status: [facility] BP 158/78 Pulse 88 Wt 91.3 kg [...] whether dyskinesia present, unspecified whether manifestations fluctuate ([facility]) 3. Chronic obstructive pulmonary disease, unspecified COPD type ([facility]) 4. Stage 2 chronic kidney disease due to benign hypertension Medically stable. Continue current regimen. All medications reviewed and are medically necessary. ELECTRONICALLY SIGNED BY: Fabien Macias DO documented in this encounter [employer] 07-11-2024 History of Present illness Narrative Patient Name: Sana Stanley Date of : 1955 Date of Service: 07/11/2024 Facility: [facility] Type of Visit: Skilled Visit Subjective Sana Stanley is a 69 y.o. male seen today at [facility] facility for therapy visit. Dave is in therapy. He is going to be discharged later this week. The staff has no new problems to report. He denies any problems. He denies pain. Appetite is okay. Allergies: Patient has no known allergies. Code Status: [facility] BP 108/70 Pulse 60 Physical Exam Constitutional: [...] whether dyskinesia present, unspecified whether manifestations fluctuate ([facility]) 2. Mild cognitive impairment 3. Schizoaffective disorder, unspecified type ([facility]-H[facility]) 4. Wernicke's encephalopathy Finish out therapy to reach maximum improvement. Medically stable. Continue current regimen. All medications reviewed and are medically necessary. ELECTRONICALLY SIGNED BY: Fabien Macias DO documented in this encounter [facility] 07-04-2024 History of Present illness Narrative Patient Name: Sana Stanley Date of : 1955 Date of Service: 07/04/2024 Facility: [facility] Type of Visit: Skilled Visit Subjective Sana Stanley is a 69 y.o. male seen today at [facility] facility for therapy visit. Dave is participating in physical therapy. There are no new problems reported by staff or patient. They are going to continue therapy for at least another week to increase standing tolerance, strength and balance Allergies: Patient has no known allergies. Code Status: [facility] BP 116/74 Pulse 76 Physical Exam Constitutional: [...] Fabien Macias DO documented in this encounter [facility] [employer] 06-27-2024 History of Present illness Narrative Patient Name: Sana Stanley Date of : 1955 Date of Service: 06/27/2024 Facility: [facility] Type of Visit: Skilled Visit Subjective Sana Stanley is a 69 y.o. male seen today at [facility] facility for therapy visit. No new problems reported by staff or patient except that he seems to be incontinent more frequently. He does voice his needs. He is now on a 2 hour toileting schedule. Allergies: Patient has no known allergies. Code Status: [facility] BP 134/76 Pulse 82 Wt 88.6 kg [...] present, unspecified whether manifestations fluctuate ([facility]) 3. BPH with lower urinary tract symptoms without urinary obstruction Medically stable. Continue current regimen. Continue therapy to reach maximum improvement. All medications reviewed and are medically necessary. ELECTRONICALLY SIGNED BY: Fabien Macias DO documented in this encounter [facility] 06-23-2024 History of Present illness Narrative Patient Name: Sana Stanley Date of : 1955 Date of Service: 06/23/2024 Facility: [facility] Type of Visit: Skilled Visit Subjective Sana Stanley is a 69 y.o. male seen today at [facility] facility for skilled visit. Dave is participating in therapy. He was evaluated for PT and OT to establish a baseline for transition to LTC. He denies problems. Allergies: Patient has no known allergies. Code Status: [facility] BP 135/82 Pulse 82 Temp 36.4 C [...] Fabien Macias DO documented in this encounter [facility] 06-09-2024 History of Present illness Narrative Patient Name: Sana Stanley Date of : 1955 Date of Service: 06/09/2024 Facility: [facility] Type of Visit: Admission H&P Subjective Sana Stanley is a 69 y.o. male seen today at [facility] facility for admission H&P. Paper H&P reviewed and updated. Dave presents to [facility] from [facility] for long-term care. He has no new problems to report. He denies CP, SOB or pain. No past medical history on file. No past surgical history on file. No family history on file. Allergies: Patient has no known allergies. Code [facility] The following portions of the patient's [...] / Plan 1. Schizoaffective disorder, bipolar type ([facility]) 2. Wernicke's encephalopathy 3. Chronic obstructive pulmonary disease, unspecified COPD type ([facility]) 4. Parkinson's disease, unspecified whether dyskinesia present, unspecified whether manifestations fluctuate ([facility]) 5. Nicotine dependence, cigarettes, uncomplicated 6. Extrapyramidal and movement disorder, unspecified 7. Iliotibial band syndrome, unspecified laterality 8. Stage 2 chronic kidney disease due to benign hypertension 9. Class 1 obesity due to excess calories with serious comorbidity in adult, unspecified BMI 10. Convulsions, unspecified convulsion type ([facility]) 11. Hyperplasia of prostate without lower urinary tract symptoms ([facility]) 12. White matter disease 13. Gastroesophageal reflux disease, unspecified whether esophagitis present Admit to [facility] for ferry terminal agent care. DNCC. Continue current regimen. Will follow ELECTRONICALLY SIGNED BY: Fabien Macias DO documented in this encounter [facility] 03-04-2024 Note Miguel Kessler MD Patient ID: [...] feeling well. Underwent cardiac testing by his data processing consultant and had an echocardiogram which showed an [...] Gastrointestinal: Negative for (more content not included)... [facility] 02-05-2024 Hospital Discharge instructions Jose Ballard MD [...] your chest pain. If you have a data processing consultant, then you should also call them to [...] cannot be sent through Care Everywhere.Chest Pain (Algerian)Is It a Heart Attack?: Video (Algerian)documented in this encounter [facility] 02-05-2024 Note PROCEDURE: CTA THORA CIC [...] pulmonary arterial hypertension. No evidence for dissection. [facility] 02-05-2024 Note PROCEDURE: CTA THORA CIC [...] by: Omero Chávez MD 02/05/24 Final result [facility] 02-05-2024 Note PROCEDURE: XR CHEST (2 VW) CLINICAL INFORMATION: chest pain COMPARISON: 08/24/2023 TECHNIQUE: AP upright and lateral views of the chest were obtained. [facility] 02-05-2024 Note PROCEDURE: XR CHEST (2 [...] by: Omero Chávez MD 02/05/24 Final result [facility] 10-29-2023 History of Present illness Narrative Patient ID: Sana Stanley is a 68 y.o. male CC: [facility] Facility visit for Essential Hypertension, COPD, Parkinson's [...] including booster. 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 manager mountain to retrieve results. Follow-up with Neurology for Parkinson's management. Becoming current with dental and ocular care visits as clinically indicated. Walking routine for VTE prophylaxis. Acknowledged once again for being tobacco free, since his brother's a year ago. Full Code Status. documented in this encounter [employer] Phone: 10-29-2023 Miscellaneous Notes Addended by: MIGUEL KESSLER on: 10/29/2023 08:52 PM Modules accepted: Orders documented in this encounter [employer] Phone: 10-29-2023 Note Addended by: MIGUEL DEVLIN on: 10/29/2023 08:52 PM Modules accepted: Orders [employer] Phone: 08-24-2023 Note PROCEDURE: XR CHEST (2 [...] Camp MD 08/24/23 Edited Result - FINAL [facility] 07-02-2023 History of Present illness Narrative Patient ID: Sana Stanley is a 68 y.o. male CC: [facility] Facility visit for COVID-19 infection, resolving, Essential [...] the infection from the facility the nurse revenue accounting manager/director is reporting. Patient reports no and [...] including booster. 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 manager mountain to retrieve results. Follow-up with Neurology for Parkinson's management. Becoming current with dental and ocular care visits as clinically indicated. Walking routine for VTE prophylaxis. Praised once again for being tobacco free, since his brother's a year ago. Full Code Status. documented in this encounter [employer] Phone: 06-12-2023 Emergency department Note [facility] arrives for pt. Original pink slipped sent with spirit. ETA called to clear passage. [employer] Phone: 06-12-2023 Emergency department Note [facility] arrives for pt. Original pink slipped sent with spirit. ETA called to clear passage. Emergency Department Report [facility] EMERGENCY MEDICINE Service Date:.06/12/23 PCP: Miguel Kessler [...] and he was seen and evaluated at [facility] yesterday and was medically cleared and he was supposed to be admitted to the geriatric psych unit but he was discharged and sent to the longterm. As per the director nursing service, patient is getting more verbally aggressive toward the nurses , at times he is more confused and agitated and they have talked with the [facility] who had requested to provide a pink [...] male was transferred to ER from the longterm for the symptoms of confusion agitation and aggression and getting verbally aggressive against the medical staff in the longterm and patient has symptoms of acute psychosis [...] above information. . Matt Caldwell MD 06/12/23 [id number] Matt Caldwell MD 06/12/23 1517 documented in this encounter [facility] [employer] Work Phone: 06-12-2023 Physician Emergency department Note Emergency Department Report [facility] EMERGENCY MEDICINE Service Date:.06/12/23 PCP: Miguel Kessler [...] and he was seen and evaluated at [facility] yesterday and was medically cleared and he was supposed to be admitted to the geriatric psych unit but he was discharged and sent to the longterm. As per the director nursing service, patient is getting more verbally aggressive toward the nurses , at times he is more confused and agitated and they have talked with the [facility] who had requested to provide a pink [...] male was transferred to ER from the longterm for the symptoms of confusion agitation and aggression and getting verbally aggressive against the medical staff in the longterm and patient has symptoms of acute psychosis [...] above information. . Matt Caldwell MD 06/12/23 2155 Matt Caldwell MD 06/12/23 1517 [facility] Work Phone: 06-11-2023 Hospital Discharge instructions Vahe Ribeiro MD - 06/11/2023 3:09 PM EDT Come back to the emergency department if severe chest pain, severe shortness of breath, persistence of fever, intractable vomiting, severe dizziness or lightheadedness, fainting. Schedule an appointment with your primary care physician as recommended previously. Read the documents attached. The following attachments cannot be sent through Care Everywhere.Parkinson's Disease (Algerian)documented in this encounter [facility] 06-11-2023 Note PROCEDURE: XR CHEST (2 [...] demineralized. Degenerative changes of the thoracic spine. [facility] 06-11-2023 Note PROCEDURE: XR CHEST (2 VW) [...] by: Milla Dinh MD 06/11/23 Final result [facility] 05-28-2023 History of Present illness Narrative Patient ID: Sana Stanley is a 67 y.o. male CC: [facility] visit for Headaches, Presently Controlled Beta-Екатерина Therapy, [...] including booster. 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 manager mountain to retrieve results. Follow-up with Neurology for Parkinson's management. Becoming current with dental and ocular care visits as clinically indicated. Walking routine for VTE prophylaxis. Praised once again for being tobacco free, since his brother's a year ago. Full Code Status. documented in this encounter [employer] Phone: 04-02-2023 History of Present illness Narrative Patient ID: Sana Stanley is a 67 y.o. male CC: [facility] Facility visit for Headaches, Presently Controlled Beta-Екатерина [...] including booster. 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 manager mountain to retrieve results. Follow-up with Neurology for Parkinson's management. Becoming current with dental and ocular care visits as clinically indicated. Walking routine for VTE prophylaxis. Full Code Status. documented in this encounter [employer] Phone: 04-02-2023 Miscellaneous Notes Addended by: MIGUEL KESSLER on: 04/02/2023 08:47 PM Modules accepted: Orders documented in this encounter [employer] Phone: 04-02-2023 Note Addended by: MIGUEL DEVLIN on: 04/02/2023 08:47 PM Modules accepted: Orders [employer] Phone: 02-26-2023 History of Present illness Narrative Patient ID: Sana Stanley is a 67 y.o. male CC: [facility] visit for Episodic Dizziness, Most Currently Today, [...] including booster. 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 manager mountain to retrieve results. Follow-up with Neurology for Parkinson's management. Becoming current with dental and ocular care visits as clinically indicated. Walking routine for VTE prophylaxis. Full Code Status. documented in this encounter [employer] Phone: 02-24-2023 Hospital Discharge instructions Wallace Garcia DO - 02/24/2023 5:56 PM EDT Patient had a fall resulting in a hip contusion. There is also arthritis of the hip. Patient has been given pain medication and a walker he is instructed to use those as prescribed. He is instructed to follow-up with the primary care physician as well as the orthopedic [place], take all medications as prescribed return to the emergency room immediately for any new or worsening complaints. The following attachments cannot be sent through Care Everywhere.Arthritis (Algerian)Joint Pain (Algerian)Hip Pain (Algerian)documented in this encounter [facility]: 02-24-2023 Note PROCEDURE: CT HIP RI [...] a small right inguinal hernia containing fat [facility] 02-24-2023 Note PROCEDURE: XR HIP 2- [...] fracture of the right inferior pubic ramus [facility] 02-19-2023 Hospital Discharge instructions Francisco J Cole MD - 02/19/2023 8:38 PM EDT No clear etiology of abdominal pain, but your labs and CT abdomen and pelvis are reassuring. Recommend taking [id number] Tylenol or ibuprofen for pain. PCP follow-up in 3 days. The following attachments cannot be sent through Care Everywhere.Abdominal Pain (Algerian)documented in this encounter [facility] Work Phone: 02-19-2023 Note PROCEDURE: CT ABDOME N [...] superior endplate of L1 with 30% compression.. [facility] 10-02-2022 History of Present illness Narrative Patient ID: Sana Stanley is a 67 y.o. male CC: [facility] visit for Recent Influenza Infection, COPD exacerbation, and Admission, with continued oxygen requirement Essential Hypertension, COPD, Parkinson's disease, Seizure Disorder, GERD, Essential Tremor, Mild Cognitive Impairment, Alcohol Use Disorder, Severe, In Sustained Remission, BPH, Schizoaffective Disorder, Bipolar Type, Diverticulosis, history of unsteady gait,Rolon's Palsy, resolved HPI: Patient reports that he still feels weak. Has also required oxygen he and rehab nursing tech report. Appetite is coming back. Breathing is [...] including booster. 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 manager mountain to retrieve results. Follow-up with Neurology for Parkinson's management. Becoming current with dental and ocular care visits as clinically indicated. Walking routine for VTE prophylaxis. Presently no interest in resuming tobacco for which patient was encouraged not to resume tobacco given his vulnerability with COPD and recent concomitant infection. Tobacco cessation counseling time 5 minutes. Full Code Status. documented in this encounter [employer] Phone: 09-23-2022 Hospital Discharge instructions Tracey Smith [...] at most local grocery stores, pharmacies, and [employer]-stores. If you have any questions about your diet or nutrition, call the hospital and ask for the dietitian 4 carb diet Tracey Smith RN - 09/23/2022 2:04 PM EST Continuity of Care Form Patient Name: Sana Stanley : 1955 Admit date: 09/18/2022 Discharge date: Code Status Order: Full Code Advance Directives: Admitting Physician: Alice Rollins, FOREST PATROLMAN - CONTROL CLERK AUDITING PCP: Piyush Keane MD Discharging Nurse: Discharging Hospital Unit/Room#: 8A-11/011-A Discharging Unit Phone Number: Emergency Contact: Extended Emergency Contact Information Primary Emergency Contact: Lewis Stanley Address: [address] [place] [address] Relation: Brother/Sister Past Surgical History: Past Surgical History: Procedure Laterality Date CYST REMOVAL LEG SURGERY Right Immunization History: Immunization History Administered Date(s) Administered COVID-19, MODERNA BLUE border, Primary or Immunocompromised, (age 12y+), IM, 100 mcg/0.5mL 11/19/2020, 12/17/2020 Active Problems: Patient Active Problem List Diagnosis Code Benign prostatic hyperplasia without lower urinary tract symptoms N40.0 COPD, mild ([facility]) J44.9 Hypertensive disorder I10 Essential tremor G25.0 Gastroesophageal reflux disease without esophagitis K21.9 Mild cognitive impairment G31.84 Parkinson's disease ([facility]) G20 Schizoaffective disorder, bipolar type ([facility]) F25.0 Seizure disorder ([facility]) G40.909 Severe alcohol use disorder, in sustained remission ([facility]) F10.21 Acute hypoxemic respiratory failure ([facility]) J96.01 Cigarette nicotine dependence, uncomplicated F17.210 Isolation/Infection: [...] (106.6 kg) Mental Status: {IP PT MENTAL STATUS:26716} IV Access: { MICHELLE IV ACCESS:[id number]} Nursing Mobility/ADLs: Walking {CHP DME ADLs:264865399} Transfer {CHP DME ADLs:702944095} Bathing {CHP DME ADLs:590869356} Dressing {CHP DME ADLs:601516568} Toileting {CHP DME ADLs:115626293} Feeding {CHP DME ADLs:015717745} Communication Spec {CHP DME ADLs:480272097} Med Delivery { MICHELLE MED Delivery:611310191} Wound Care Documentation and Therapy: Elimination: Continence: Bowel: {YES / NO:} Bladder: {YES / NO:} Urinary Catheter: {Urinary Catheter:971394144} Colostomy/Ileostomy/Ileal Conduit: {YES / NO:} Date of Last BM: No intake or output data in the 24 hours ending 09/23/22 1404 No intake/output data recorded. Safety Concerns: { MICHELLE Safety Concerns:862802754} Impairments/Disabilities: {[facility] Impairments/Disabilities:078671 273} Nutrition Therapy: Current Nutrition Therapy: { MICHELLE Diet List:496618259} Routes of Feeding: {P DME Other Feedings:058257323} Liquids: {Independent Freight Agent liquid thickness:38507} Daily Fluid Restriction: {CHP DME Yes amt example:423451953} Last Modified Barium Swallow with Video (Video Swallowing Test): {Done Not Done Date:} Treatments at the Time of Hospital Discharge: Respiratory Treatments: Oxygen Therapy: {Therapy; copd oxygen:44611} Ventilator: { CC Vent List:093032347} Rehab Therapies: {THERAPEUTIC INTERVENTION:0946320434} Weight Bearing Status/Restrictions: { CC Weight Bearin} Other Medical Equipment (for information only, NOT a DME order): {EQUIPMENT:652794455} Other Treatments: Patient's personal belongings (please select all that are sent with patient): {CHP DME Belongings:843951465} RN SIGNATURE: {Esignature:105180509} CASE MANAGEMENT/SOCIAL WORK SECTION Inpatient Status Date: Readmission Risk Assessment Score: Readmission Risk Risk of Unplanned Readmission: 16 Discharging to Facility/ Agency Name: Address: Phone: Fax: Dialysis Facility (if applicable) Name: Address: Dialysis Schedule: Phone: Fax: Rail Transportation Tabeler/Curriculum Developer signature: {Esignature:583101358} PHYSICIAN SECTION Prognosis: {Prognosis:3013575053} Condition at Discharge: { Patient Condition:888298724} Rehab Potential (if transferring to Rehab): {Prognosis:9096629268} Recommended Labs or Other Treatments After Discharge: Physician Certification: I certify the above information and transfer of Sana Stanley is necessary for the continuing treatment of the diagnosis listed and that he requires {Admit to Appropriate Level of Care:91358} for {GREATER/LESS:804770014} 30 days. Update Admission H&P: {CHP DME Changes in HandP:336491535} PHYSICIAN SIGNATURE: {Esignature:035755852} documented in this encounter [facility] [employer] Phone: 09-23-2022 History of Present illness Narrative [...] included. Hospitalist Progress Note Patient: Sana Stanley Unit/Bed:8A-011-A Date of : 1955 Acct: [id number] PCP: Piyush Keane MD Date of Admission: [...] [] Rehab [] Psych [] SNF [] [facility] [] Other- Chief Complaint: [...] included. Hospitalist Progress Note Patient: Sana Stanley [facility] Date of : 1955 Acct: [id number] PCP: Piyush Keane MD Date of Admission: [...] [] Rehab [] Psych [] SNF [] [facility] [] Other- Chief Complaint: [...] data in the 24 hours ending 09/21/22 0734 Diet: ADULT DIET; Regular; 4 carb choices [...] included. Hospitalist Progress Note Patient: Sana Stanley [facility] : 1955 Acct: [id number] PCP: Piyush Keane MD Date of Admission: [...] [] Rehab [] Psych [] SNF [] [facility] [] Other- Chief Complaint: [...] included. Hospitalist Progress Note Patient: Sana Stanley [facility] Date of : 1955 Acct: [id number] PCP: Piyush Keane MD Date of Admission: [...] [] Rehab [] Psych [] SNF [] Intermediate Care Facility [] Other- Chief Complaint: Shortness [...] Intake/Output Summary (Last 24 hours) at 09/19/2022 0728 Last data filed at 09/19/2022 0501 Gross [...] or converted to UFH per the approved [facility] protocol and table as identified below. Sana [...] 12:13 AM documented in this encounter [facility] [employer] Work Phone: 09-23-2022 Note PROCEDURE: CTA CHEST [...] 235) likely corresponds to a sebaceous cyst. [facility] 07-03-2022 History of Present illness Narrative Patient ID: Sana Stanley is a 67 y.o. male CC: [facility] Facility visit for Essential Hypertension, COPD, Parkinson's [...] including booster. 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 manager mountain to retrieve results. Follow-up with Neurology for Parkinson's management. Becoming current with dental and ocular care visits as clinically indicated. Walking routine for VTE prophylaxis. No interest with nicotine replacement therapy, tobacco wean/cessation recommendations benefits of tobacco cessation and risks of continued tobacco use once again discussed. Tobacco cessation counseling time 5 minutes. Full code status. documented in this encounter [employer] Phone: 11-28-2021 History of Present illness Narrative Patient ID: Sana Stanley is a 66 y.o. male CC: [facility] Facility visit For Recent Rolon's Palsy, [...] including booster. 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 manager mountain to retrieve results. Follow-up with Neurology for Parkinson's management. Becoming current with dental and ocular care visits as clinically indicated. Walking routine for VTE prophylaxis. Declines nicotine replacement therapy, tobacco wean/cessation recommendations benefits of tobacco cessation and risks of continued tobacco use once again discussed. Full code status. documented in this encounter [facility] 09-26-2021 History of Present illness Narrative Patient ID: Sana Stanley is a 66 y.o. male CC: [facility] Facility visit For Essential Hypertension, COPD, [...] including booster. 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 manager mountain to retrieve results. Follow-up with Neurology for Parkinson's management. Becoming current with dental and ocular care visits as clinically indicated. Walking routine for VTE prophylaxis. Not interested once again in nicotine replacement therapy, tobacco wean/cessation recommendations benefits of tobacco cessation and risks of continued tobacco use once again discussed. Full code status. documented in this encounter [facility] 05-02-2021 History of Present illness Narrative Patient ID: Sana Stanley is a 65 y.o. male CC: [facility] History And Physical For Essential Hypertension, COPD, Parkinson's disease, Seizure Disorder, GERD, Essential Tremor, Mild Cognitive Impairment, Alcohol Use Disorder, Severe, In Sustained Remission, BPH, Schizoaffective Disorder, Bipolar Type, Diverticulosis Chief Complaint Patient presents with Hypertension Chronic Obstructive Pulmonary Disease Parkinson's Disease HPI: 65-year-old gentleman with comorbidities as noted recently moved here from a [place]. Reports medication adherence, facilitated by nursing staff. Denies medication intolerances. Added that his brother came with him from the correction. Patient reports that he has 2 sons [...] SARS-CoV-2 vaccination. 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 manager mountain to retrieve results. Follow-up with neurology for [...] his medical care. documented in this encounter [facility] Evaluation note Diagnosis COPD, mild- Primary Chronic [...] disorder, unspecified condition [facility] Diagnosis Rolon's palsy- Primary COPD, [...] Abnormality of gait [facility] Diagnosis Essential hypertension- Primary Unspecified [...] disorder, unspecified condition documented in this encounter [employer] [facility] Diagnosis Grief reaction- Primary Adjustment disorder [...] disorder, unspecified condition documented in this encounter [employer] Phone: Evaluation note* Diagnosis Acute hypoxemic respiratory [...] forms of tremor documented in this encounter [employer] Phone: evaluation note* Diagnosis Influenza A H1N1 [...] urinary tract symptoms documented in this encounter [employer] Phone: Evaluation note* Diagnosis Feared complaint without diagnosis- Primary Person with feared complaint in whom no diagnosis was made Essential hypertension Unspecified essential hypertension documented in this encounter [employer] Phone: evaluation note* Diagnosis Nonspecific abdominal pain- Primary documented in this encounter [employer] Phone: evaluation note* Diagnosis Lethargy- Primary Other [...] Tobacco use disorder documented in this encounter [employer] Phone: Evaluation note* Diagnosis Acute pain of right hip- Primary Pain in joint, pelvic region and thigh Osteoarthritis of right hip, unspecified osteoarthritis type documented in this encounter [employer] Phone: evaluation note* Diagnosis Intractable chronic migraine without aura [...] in sustained remission documented in this encounter [employer] Phone: Evaluation note* Diagnosis Hypertensive heart disease [...] in sustained remission documented in this encounter [employer] Phone: Evaluation note* Diagnosis Parkinson disease (HCC)- Primary Paralysis agitans General weakness Other malaise and fatigue documented in this encounter [employer] note* Diagnosis Acute psychosis- Primary Unspecified psychosis documented in this encounter [employer] Phone: Evaluation note* Diagnosis Hypertensive heart disease [...] impairment, so stated documented in this encounter [place] [employer] Work Phone: Evaluation note* Diagnosis Hypertensive heart [...] impairment, so stated documented in this encounter [place] [employer] Work Phone: Evaluation note* Diagnosis Chest pain, unspecified type- Primary [facility] information [facility] Work Phone: Evaluation note* Diagnosis Chronic obstructive pulmonary disease, unspecified COPD type (CMS-HCC)- Primary Parkinson's disease, unspecified whether dyskinesia present, unspecified whether manifestations fluctuate (CMS-HCC) Mild cognitive impairment Mild cognitive impairment, so stated Wernicke's encephalopathy Other and unspecified manifestations of thiamine deficiency [facility] Diagnosis Parkinson's disease, unspecified whether dyskinesia present, unspecified whether manifestations fluctuate (CMS-HCC)- Primary Wernicke's encephalopathy Other and unspecified manifestations of thiamine deficiency Chronic obstructive pulmonary disease, unspecified COPD type (CMS-HCC) Extrapyramidal and movement disorder, unspecified [facility] Diagnosis Parkinson's disease, unspecified whether dyskinesia present, unspecified whether manifestations fluctuate (CMS-HCC)- Primary Schizoaffective disorder, unspecified type (CMS-HCC) Wernicke's encephalopathy Other and unspecified manifestations of thiamine deficiency Chronic obstructive pulmonary disease, unspecified COPD type (CMS-HCC) [facility] Diagnosis Wernicke's encephalopathy- Primary Other and unspecified manifestations of thiamine deficiency Chronic obstructive pulmonary disease, unspecified COPD type ([facility]) Parkinson's disease, unspecified whether dyskinesia present, unspecified whether manifestations fluctuate ([facility]) [facility] Diagnosis Schizoaffective disorder, bipolar type ([facility])- Primary Schizoaffective disorder, unspecified condition Wernicke's encephalopathy Other and unspecified manifestations of thiamine deficiency Chronic obstructive pulmonary disease, unspecified COPD type ([facility]) Parkinson's disease, unspecified whether dyskinesia present, unspecified whether manifestations fluctuate ([facility]) Nicotine dependence, cigarettes, uncomplicated Extrapyramidal and movement disorder, unspecified Iliotibial band syndrome, unspecified laterality Stage 2 chronic kidney disease due to benign hypertension Class 1 obesity due to excess calories with serious comorbidity in adult, unspecified BMI Convulsions, unspecified convulsion type ([facility]) Hyperplasia of prostate without lower urinary tract symptoms (LUTS) Unspecified hyperplasia of prostate without urinary obstruction and other lower urinary tract symptoms (LUTS) White matter disease Gastroesophageal reflux disease, unspecified whether esophagitis present Mild cognitive impairment Mild cognitive impairment, so stated [facility]* Diagnosis Wernicke's encephalopathy- Primary Other and unspecified manifestations of thiamine deficiency Chronic obstructive pulmonary disease, unspecified COPD type ([facility]) Parkinson's disease, unspecified whether dyskinesia present, unspecified whether manifestations fluctuate ([facility]) Stage 2 chronic kidney disease due to benign hypertension Mild cognitive impairment Mild cognitive impairment, so stated [facility]* Diagnosis Wernicke's encephalopathy- Primary Other and unspecified manifestations of thiamine deficiency Parkinson's disease, unspecified whether dyskinesia present, unspecified whether manifestations fluctuate ([facility]) BPH with lower urinary tract symptoms without urinary obstruction [facility]* Diagnosis Wernicke's encephalopathy- Primary Other and 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, unspecified Parkinson's disease, unspecified whether dyskinesia present, unspecified whether manifestations fluctuate ([facility]) documented [facility]* Diagnosis Parkinson's disease, unspecified whether dyskinesia present, unspecified whether manifestations fluctuate ([facility])- Primary Mild cognitive impairment Mild cognitive impairment, so stated Schizoaffective disorder, unspecified type ([facility]) Wernicke's encephalopathy Other and unspecified manifestations of thiamine deficiency [facility] Diagnosis Wernicke's encephalopathy- Primary Other and unspecified manifestations of thiamine deficiency Parkinson's disease, unspecified whether dyskinesia present, unspecified whether manifestations fluctuate ([facility]) Chronic obstructive pulmonary disease, unspecified COPD type ([facility]) Stage 2 chronic kidney disease due to benign hypertension [facility] Diagnosis Chronic obstructive pulmonary disease, unspecified COPD type ([facility])- Primary Protein-calorie malnutrition, unspecified severity (CMS-HCC) Parkinson's disease, unspecified whether dyskinesia present, unspecified whether manifestations fluctuate ([facility]) Mild cognitive impairment Mild cognitive impairment, so stated [facility] Diagnosis Parkinson's disease, unspecified whether dyskinesia present, unspecified whether manifestations fluctuate ([facility])- Primary Wernicke's encephalopathy Other and unspecified manifestations of thiamine deficiency Mild cognitive impairment Mild cognitive impairment, so stated Chronic obstructive pulmonary disease, unspecified COPD type ([facility]) Protein-calorie malnutrition, unspecified severity (CMS-HCC) [facility] Diagnosis Wernicke's encephalopathy- Primary Other and 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, unspecified Stage 2 chronic kidney disease due to benign hypertension Schizoaffective disorder, unspecified type ([facility]) [facility] Diagnosis Parkinson's disease, unspecified whether dyskinesia present, unspecified whether manifestations fluctuate ([facility])- Primary Chronic obstructive pulmonary disease, unspecified COPD type (CMS-HCC) Wernicke's encephalopathy Other and unspecified manifestations of thiamine deficiency Schizoaffective disorder, unspecified type (CMS-HCC) [facility] Diagnosis Chronic obstructive pulmonary disease, unspecified COPD type (CMS-HCC)- Primary Wernicke's encephalopathy Other and unspecified manifestations of thiamine deficiency Parkinson's disease, unspecified whether dyskinesia present, unspecified whether manifestations fluctuate ([facility]) [facility] Diagnosis Wernicke's encephalopathy- Primary Other and unspecified manifestations of thiamine deficiency Parkinson's disease, unspecified whether dyskinesia present, unspecified whether manifestations fluctuate ([facility]) Chronic obstructive pulmonary disease, unspecified COPD type ([facility]) documented in [facility]* Diagnosis Wernicke's encephalopathy- Primary Other and unspecified manifestations of thiamine deficiency Cognitive impairment Unspecified persistent mental disorders due to conditions classified elsewhere Schizoaffective disorder, unspecified type ([facility]) Parkinson's disease, unspecified whether dyskinesia present, unspecified whether manifestations fluctuate ([facility]) Chronic obstructive pulmonary disease, unspecified COPD type ([facility]) documented [facility] Diagnosis Wernicke's encephalopathy- Primary Other and unspecified manifestations of thiamine deficiency Chronic obstructive pulmonary disease, unspecified COPD type ([facility]) Protein-calorie malnutrition, unspecified severity [facility]* Attachments The following attachments cannot be sent through Care Everywhere. * Diet: DASH (Algerian) * Hypertension: General Info (Algerian) [facility] [employer] Phone: InstructionsNot on filedocumented in this encounter [facility] System[facility]ructionsNot on filedocumented in this encounter [facility] SystemInstructionsNot on filedocumented in this encounter [facility] SystemInstructionsNot on filedocumented in this encounter [facility]ructionsNot on filedocumented in this encounter [facility]InstructionsNot on filedocumented in this encounter [facility] SystemReason for referral (narrative)* Consultation (Routine) - New Request Specialty Diagnoses / Procedures Referred By Devon hastings Referred To Contact Orthopaedic Surgery Diagnoses Mass of joint of right shoulder Miguel Kessler MD [address] [place] [address] [place] [address] Roshan Gonzalez MD [address] [place] [address] Referral ID Status Reason Start Date Expiration Date V isits Requested Visits Authorized [id number] New Request 04/02/2023 04/26/2024 1 1 [employer] Phone: Reason for referral (narrative)* Consultation (Routine) - New Request Specialty Diagnoses / Procedures Referred By Contzonia t Referred To Contact Diagnoses Parkinson's disease without dyskinesia or fluctuating manifestations Miguel Kessler MD [address] [place] [address] Beatriz Roche MD [address] [facility] [address] [place] [address] Referral ID Status Reason Start Date Expiration Date V isits Requested Visits Authorized [id number] New Request 10/29/2023 11/22/2024 1 1 [employer] Phone: Summary Purpose Family History No Family [...] Documents on File Type Date Recorded Patient Trading Assistant Expl anation ACP-Do Not Resuscitate 09/28/2022 [...] Documents on File Type Date Recorded Patient Trading Assistant Expl anation ACP-Do Not Resuscitate 09/28/2022 [...] and content) DATE CREATED AUTHOR 04/08/2020 [facility] DATE CREATED AUTHOR AUTHOR'S ORGANIZ ATION 10/31/2023 [facility] DATE CREATED AUTHOR AUTHOR'S ORGANIZ ATION 03/04/2024 [facility] DATE CREATED AUTHOR AUTHOR'S ORGANIZ ATION 03/17/2024 [facility] DATE CREATED AUTHOR AUTHOR'S ORGANIZ ATION 08/08/2024 [facility] DATE CREATED AUTHOR AUTHOR'S ORGANIZ ATION 10/01/2024 [facility] Reason for Visit (unrecogniz ed [...] with myocardial perfusion Mavis Gonzales MD [address] [address] Referral ID Status Reason Start Date Expiration Date V isits Requested Visits Authorized [id number] Pending Review 02/10/2024 02/09/2025 4 4 Care Teams (unrecognized sec tion and content) Wood Barrel Reconditioner Relationship Specialty Start Date End Date Miguel Kessler MD [address] [facility] [address] [place] [address] PCP - General Internal Medicine 07/03/22 Wood Barrel Reconditioner Relationship Specialty Start Date End Date Piyush Keane MD [address] [facility] [address] PCP - General 12/16/12 Wood Barrel Reconditioner Relationship Specialty Start Date End Date Miguel Kessler MD [address] [facility] [address] [place] [address] PCP - General Internal Medicine 07/03/22 Wood Barrel Reconditioner Relationship Specialty Start Date End Date Piyush Keane MD [address] [employer] [place] [address] PCP - General 12/16/12 Wood Barrel Reconditioner Relationship Specialty Start Date End Date Piyush Keane MD [address] [place] [address] PCP - General 12/16/12 Wood Barrel Reconditioner Relationship Specialty Start Date End Date Miguel Kessler MD [address] [facility] [address] [place] [address] PCP - General Internal Medicine 07/03/22 Wood Barrel Reconditioner Relationship Specialty Start Date End Date Piyush Keane MD [address] [employer] [place] [address] PCP - General 12/16/12 Wood Barrel Reconditioner Relationship Specialty Start Date End Date Miguel Kessler MD [address] [place] [address] PCP - General Internal Medicine 07/03/22 Wood Barrel Reconditioner Relationship Specialty Start Date End Date Miguel Kessler MD [address] [place] [address] PCP - General Internal Medicine 07/03/22 Wood Barrel Reconditioner Relationship Specialty Start Date End Date Piyush Keane MD [address] [place] [address] PCP - General 12/16/12 Wood Barrel Reconditioner Relationship Specialty Start Date End Date Miguel Kessler MD [address] [place] [address] PCP - General Internal Medicine 07/03/22 Wood Barrel Reconditioner Relationship Specialty Start Date End Date Miguel Kessler MD [address] [place] [address] PCP - General Internal Medicine 07/03/22 Wood Barrel Reconditioner Relationship Specialty Start Date End Date Miguel Kessler MD [address] [place] [address] PCP - General Internal Medicine 07/03/22 Wood Barrel Reconditioner Relationship Specialty Start Date End Date Piyush Keane MD [address] [place] [address] PCP - General 12/16/12 Team Status: Inactive Member Role Status Dates Gary Estevez DO Attending Provider Active Start: September 24, 2024 End: September 24, 2024 Wood Barrel Reconditioner Relationship Specialty Start Date End Date Piyush Keane MD (Fax) PCP - General 02/05/16 Wood Barrel Reconditioner Relationship Specialty Start Date End Date Piyush Keane MD (Fax) PCP - General 02/05/16 Wood Barrel Reconditioner Relationship Specialty Start Date End Date Piyush Keane MD [address] [place] [address] (Fax) PCP - General 02/05/16 Wood Barrel Reconditioner Relationship Specialty Start Date End Date Piyush Keane MD [address] [place] [address] (Fax) PCP - General 02/05/16 Wood Barrel Reconditioner Relationship Specialty Start Date End Date Piyush Keane MD [address] [place] [address] (Fax) PCP - General 02/05/16 Wood Barrel Reconditioner Relationship Specialty Start Date End Date Piyush Keane MD [address] [place] [address] (Fax) PCP - General 02/05/16 Wood Barrel Reconditioner Relationship Specialty Start Date End Date Piyush [...] Marlow RCP)1223 (Given - Provider: Freya Marlow RCP)2202 (Given - Provider: Suzanne Doan SOUND TRUCK OPERATOR) 0753 (Given - Provider: Shannan Pratt RCP)1156 (Given - Provider: Shannan Pratt RCP)1803 (Given - Provider: Suzanne Doan RCP) 0900 (Given - Provider: Anjana Ozuna RCP)1233 (Given - Provider: Anjana Ozuna RCP)1999 (Due) aspirin EC tablet 81 mg 81 [...] 09 (Given - Provider: Haylee Borges RN) 08 (Given - Provider: Tracey Smith RN) finasteride (PROSCAR) tablet 5 mg 5 mg, Oral, DAILY, First dose on 09/19/22 at 0900, Until Discontinued, Women should not handle crushed or broken finasteride tablets when they are or may potentially be , due to potential risk to the fetus. 902 (Given - Provider: Marium Frederick RN) 903 (Given - Provider: Haylee Borges RN) 08 (Given - Provider: Tracey Smith RN) lithium (LITHOBID) extended release tablet 300 mg 300 mg, Oral, EVERY 12 HOURS, First dose (after last modification) on 09/19/22 at 0900, Until Discontinued, Maintain adequate fluid and sodium intake 900 (Given - Provider: Marium Frederick RN)2006 (Given - Provider: Wilton Patel RN) 903 (Given - Provider: Haylee Borges RN)2042 (Given - Provider: Wilton Patel RN) 08 (Given - Provider: Tracey Smith RN)2099 (Due) losartan (COZAAR) tablet 25 mg 25 mg, Oral, DAILY, First dose on 09/19/22 at 0900, Until Discontinued 900 (Given - Provider: Marium Frederick RN) 902 (Given - Provider: Haylee Borges RN) 0841 (Given - Provider: Tracey Smith RN) mometasone-formoterol (DULERA) 200-5 MCG/ACT inhaler 2 puff 2 puff, Inhalation, 2 TIMES DAILY, First dose on 09/19/22 at 0800, Until Discontinued, Rinse mouth out with water (without swallowing) after every dose. 0805 (Given - Provider: Freya Marlow RCP)220 (Given - Provider: Suzanne Doan RCP) 0753 (Given - Provider: Shannan Pratt RCP)180 (Given - Provider: Suzanne Doan RCP) 0900 (Given - Provider: Anjana Ozuna RCP)2000 (Due) OLANZapine (ZYPREXA) tablet 10 mg 10 mg, Oral, NIGHTLY, First dose on Wed09/18/22 at 2100, Until Discontinued 2006 (Given - Provider: Wilton Patel RN) 2042 (Given - Provider: Wilton Patel RN) 2099 (Due) oseltamivir (TAMIFLU) capsule 75 mg (COMPLETED) [...] 902 (Given - Provider: Haylee Borges RN) 0841 (Given - Provider: Tracey Smith RN) selegiline [...] Midline or Central Line = 20 mL/lumen 09 (Given - Provider: Marium Frederick RN)2006 [...] Administer if oral route cannot be used. 183 (See Alternative - Provider: Vidya Estrada RN) 010 (See Alternative - Provider: Wilton Patel RN) acetaminophen (TYLENOL) tablet 650 mg(Linked Group 1) 650 mg, Oral, EVERY 6 HOURS PRN, Starting on Wed09/18/22 at 2032, Until Discontinued, Pain Mild (1-3), Fever, For temp greater than 100.4 F (38 C), Maximum dose of acetaminophen is 4000 mg from all sources in 24 hours. 1831 (Given - Provider: Vidya Estrada RN) 99 (Given - Provider: Wilton Patel RN) iopamidol (ISOVUE-370) 76 % injection 80 mL (COMPLETED) 80 mL, IntraVENous, IMG ONCE PRN, 1 dose, Starting on Wed09/23/22 at 0942, Until Wed09/23/22 at 09, Other 09 (Given - Provider: Ruth Herbert) [...] IntraVENous, EVERY 6 HOURS PRN, Starting on Wed09/18/222032, Until Discontinued, Nausea, Vomiting
Administer if oral [...] at 2032, Until Discontinued, Per Potassium Replacement Protocol
Administer [...] specifically ordered. 1743 (Given - Provider: Kodi Lyons, LOKI) Continuous Medication Order 02/18/2023 02/19/2023 02/20/2023 0.9 % sodium chloride infusion IntraVENous, at 100 mL/hr, CONTINUOUS, Starting on Wed02/19/23 at 1745 1743 (New Bag - Provider: Cristian Lyons, RN)2220 (Stopped - Provider: Deanne Larry RN) PRN Medication Order 02/18/2023 02/19/2023 02/20/2023 iopamidol (ISOVUE-370) 76 % injection 80 mL (COMPLETED) 80 mL, IntraVENous, IMG ONCE PRN, 1 dose, Starting on Wed02/19/23 at 1726, Until Discontinued, Other 194 (Given - Provider: Carlos Duarte) Scheduled Medication Order 02/22/2023 02/23/2023 02/24/2023 HYDROcodone-acetaminophen (NORCO) 5-325 MG per tablet 1 tablet (COMPLETED) 1 tablet, Oral, ONCE, 1 dose, On Wed02/24/23 at 1745, Maximum dose of acetaminophen is [...] BE BASED ON THE PRIMARY CLINICAL RECORDS. [facility]. provides no warranty or guarantee of the accuracy or completeness of information in this document.
[2025-07-04 16:21] LABS: Hematocrit 40.2 % (42.0-54.0); Hemoglobin 12.9 g/dL (14.0-18.0); Immature Granulocytes Abs Auto 0.01 10^3/uL (0.00-0.03); Immature Granulocytes Pct Auto 0.1 % (0.0-0.5); Lymphocytes Absolute Auto 1.6 10^3/uL (1.2-3.8); Mean Corpuscular HGB Conc 32.1 g/dL (29.9-35.2); Mean Corpuscular Hemoglobin 30.0 pg (25.9-34.0); Mean Corpuscular Volume 93.5 fL (80.0-94.0); Platelet Count 189 10^3/uL (150-450); Red Blood Count 4.30 10^6/uL (4.70-6.10); White Blood Count 8.2 10^3/uL (4.0-11.0)
[2025-07-04 16:50] LABS: Anion Gap 15.5; Blood Urea Nitrogen 14.0 mg/dL (7.0-18.0); Calcium 9.1 mg/dL (8.5-10.1); Carbon Dioxide 28.7 mmol/L (21.0-32.0); Chloride 105 mmol/L (98-107); Estimated GFR (African America >60 (>=60 mL/min/1.73m^2); Estimated GFR (Non-African Ame >60 (>=60 mL/min/1.73m^2); Glucose 114 mg/dL (74-106); Potassium 4.2 mmol/L (3.5-5.1); Sodium 145 mmol/L (136-145)
== END 2025-07-04 16:01 | disposition home or self-care (01) ==
LOC: LAB 16:00
PROVIDERS: PCP Family Medicine; Visit Provider Family Medicine
DX: J44.1 Chronic obstructive pulmonary disease with (acute) exacerbation (principal)
CPT/HCPCS: 36415; 80048; 85025

== ENCOUNTER 2025-07-24 03:28 | Outpatient (REF) | payer MEDICARE, MEDICAID, SELFPAY ==
--- OUTSIDE RECORDS SUMMARY | 2025-07-24 03:32 | XMS_ITS | Clinical Summary ---
Author Organization [facility] Address [address] [place] [address] Care Team Providers Care Shoe Repairer Name Role Phone Fabien Macias MD Primary Care Provider [phone] Social History Tobacco UseTypesPacks/DayYears UsedDateSmoking Tobacco: Never AssessedSex and Gender InformationValueDate RecordedSex Assigned at BirthNot on fileLegal Sex Male12/02/2022 6:56 PM EDTGender IdentityNot on fileSexual OrientationNot on file Last Filed Vital Signs Vital SignReadingTime TakenCommentsBlood Qutwwelw510/60002/06/2021 12:00 PM EDT Pulse--Temperature--Respiratory Rate--Oxygen Saturation--Inhaled Oxygen Concentration--Gkallr94.8 kg (187 lb)02/06/2021 12:00 PM XRXPwhmzh819.7 cm (5' 8 )02/06/2021 12:00 PM EDTBody Mass Index28.43002/06/2021 12:00 PM EDT Plan of Treatment Not on file Insurance Care Teams Team MemberRelationshipSpecialtyStart DateEnd Date Fabien Macias MD [address] [facility] [place] [address] PCP - GeneralFamily Medicine01/10/25
--- OUTSIDE RECORDS SUMMARY | 2025-07-24 03:32 | XMS_ITS | CCD ---
Author Organization [facility] Care Team Providers Care Concrete Spreader Name Role Phone PIYUSH KEANE Primary Care Unavailable SERAFIN, SARAH Admitting Unavailable SERAFIN, SARAH Attending Unavailable LUIS MANUEL BARROS V Consulting Unavailable MIR CUENCA Consulting Unavailable HEMEYER, EDGUADALUPE Primary Care Unavailable SERAFIN, ASRAH Admitting Unavailable SERAFIN, SARAH Attending Unavailable SANAM [...] BEN Admitting Unavailable BIRDIBEN Attending Unavailable BIRDOwen, BEN Referring Unavailable MANUELA GARY Consulting Unavailable [...] Piyush Keane MD Primary Care Provider [phone] Hemeyer MD, Edward J Primary Care Provider [phone] Medications Current Medications MedicationDrug Class(es)DatesSig (Normalized)Sig (Original)acetaminophen 325 mg oral tablet (19 sources)Start: 94-69-2350qhbgovrnognpk (TYLENOL) tablet 650 mgStart: 08-10-4643itsdvtutpyoec (TYLENOL) tablet 650 mgStart: 97-03-4705dkzpvwrpaaxgx (TYLENOL) tablet 1,000 mgStart: 83-42-5390hljh 2 tablets by mouth every four hours as neededacetaminophen (Tylenol) 325 MG tablet Take 2 tablets by mouth every 4 hours as needed for Mild Pain. 60 tablet 5 02/10/2022 ActiveStart: 19-62-0452ofcyuplnqogdx (TYLENOL) 325 MG [id number] 200 actuat albuterol 0.09 mg/actuat metered dose inhaler (20 sources)beta2-Adrenergic AgonistStart: 09-19-2022 End: 76-60-3697skjvstaos sulfate HFA (PROVENTIL;VENTOLIN;PROAIR) 108 (90 Base) MCG/ACT inhaler 2 puffStart: 51-19-8355gaao 2 puff(s) by inhalation four times dailyalbuterol (VENTOLIN HFA) 90 mcg/actuation inhaler Inhale 2 puffs 4 (four) times a day. 02/08/2016 Activetake 2 puff(s) by mouth four times dailyalbuterol sulfate HFA (VENTOLIN HFA) 108 (90 Base) MCG/ACT inhaler Ventolin HFA 90 mcg/actuation aerosol inhaler INHALE 2 PUFFS BY MOUTH 4 TIMES DAILY AT 9AM, 1PM, 5PM, AND 9PM 0 Activetake 2 puff(s) by inhalation four times dailyVentolin 90 mcg/inh inhalation aerosol ; 2 puff(s) inhaled 4 times a day Refills: 0 Ordered: 12-Jun-2023 Yancy Vizcarra Generic Substitution Allowedamoxicillin 875 mg / clavulanate 125 mg oral tablet (1 source)Penicillin-class AntibacterialStart: 09-23-2022 End: 84-94-2120xppv 1 tablet by mouth twice dailyamoxicillin-clavulanate (AUGMENTIN) 875-125 MG per tablet Take 1 tablet by mouth 2 times daily for 7 days 14 tablet 0 09/23/2022 09/30/2022 Activeaspirin 81 mg delayed release oral tablet (20 sources)Platelet Aggregation Inhibitor, Nonsteroidal Anti-inflammatory Drug Start: 99-28-6392kzef 1 tablet by mouth once dailyaspirin EC 81 MG EC tablet Take 1 tablet by mouth daily 30 tablet 0 10/31/2021 Activeatorvastatin 40 mg oral tablet (17 sources)HMG-CoA Reductase InhibitorStart: 27-71-4368wpuk 1 tablet by mouth once dailyatorvastatin (LIPITOR) 40 MG tablet Take 1 tablet by mouth daily 30 tablet 0 10/31/2021 Activeazithromycin 250 mg oral tablet (1 source)Macrolide AntimicrobialStart: 09-23-2022 End: 23-82-7856jjluesyvdizc (ZITHROMAX) 250 MG tablet Indications: COPD exacerbation (HCC) Take 1 tablet by mouth See Admin Instructions for 5 days 500mg on day 1 followed by 250mg on days 2 - 5 6 tablet 0 09/23/2022 09/28/2022 ActivebusPIRone hydrochloride 10 mg oral tablet (13 sources)Start: 61-20-1244fqba 1 tablet by mouth three times dailybusPIRone 10 MG tablet Take 1 tablet by mouth 3 times daily. 0 02/17/2023 Activecarbidopa 50 mg / levodopa 200 mg extended release oral tablet (20 sources)Aromatic Amino Acid Decarboxylation Inhibitor, Aromatic Amino Acid Start: 01-51-2789uafyhplnv-levodopa (SINEMET CR) 50-200 MG per extended release tabletStart: 13-93-5708ylvj 1 tablet by mouth twice dailycarbidopa-levodopa (SINEMET CR) 50-200 mg per CR tablet Take 1 tablet by mouth 2 (two) times a day. 02/08/2016 Active0.3 ml enoxaparin sodium 100 mg/ml prefilled syringe (1 source)Low Molecular Weight HeparinStart: 29-59-6042fstvzjmqkz Sodium (LOVENOX) injection 30 mgfinasteride 5 mg oral tablet (20 sources)5-alpha Reductase InhibitorStart: 86-62-1409wpct 1 tablet by mouth once dailyfinasteride (PROSCAR) 5 mg tablet Take 5 mg by mouth daily. 02/08/2016 Yxadfv57 actuat formoterol fumarate 0.005 mg/actuat / mometasone furoate 0.2 mg/actuat metered dose inhaler (1 source)Corticosteroid, beta2-Adrenergic AgonistStart: 75-05-8573xojwzfellk- formoterol (DULERA) 200-5 MCG/ACT inhaler 2 puffhydrOXYzine pamoate 25 mg oral capsule (13 sources)Antihistaminetake 1 capsule by mouth once dailyhydrOXYzine pamoate (VISTARIL) 25 MG capsule Take 25 mg by mouth nightly 0 Activelithium carbonate 300 mg extended release oral tablet (20 sources)Start: 77-04-3455vtycqrv (LITHOBID) extended release tablet 300 mg Start: 16-32-5657ctqc 2 capsules by mouth once dailylithium carbonate 300 mg capsule Take 600 mg by mouth respiratory nightly. 02/08/2016 ActiveStart: 32-11-3569hjsm 1 tablet by mouth once dailylithium (ESKALITH) 450 mg CR tablet Take 450 mg by mouth daily. 02/08/2016 Activetake 1 capsule by mouth twice daily at mealtimelithium 300 MG capsule Take 300 mg by mouth 2 times daily with meals. 0 Activetake 1 tablet by mouth twice dailylithium 450 mg oral tablet, extended release ; 1 tab(s) orally 2 times a day Refills: 0 Ordered: 12-Jun-2023 Yancy Vizcarra Generic Substitution Allowed End: 50-29-8341tnky 1 tablet by mouth twice dailylithium 300 MG tablet lithium carbonate 300 mg tablet Take 1 tablet twice a day by oral route. 0 09/19/2022 Discontinued (LIST CLEANUP)loperamide hydrochloride 2 mg oral capsule (1 source)Opioid Agonisttake 1 capsule by mouth onceloperamide 2 mg oral capsule ; 2 cap(s) orally once as needed for diarrhea after consistent loose stool, them 1 capsule after each loose stool Refills: 0 Ordered: 12-Jun-2023 Yancy Vizcarra Generic Substitution AllowedLORazepam 1 mg oral tablet (20 sources)BenzodiazepineStart: 84-68-4565flkc 1 tablet by mouth at bedtime LORazepam 1 MG tablet Take 1 tablet by mouth at bedtime. 0 02/24/2023 Active Start: 15-17-3825vyjm 1 tablet by mouth twice dailyLORazepam 0.5 MG tablet Take 1 tablet by mouth 2 times daily. 0 02/08/2023 Amltln26 ml magnesium sulfate 40 mg/ml injection (1 source)Start: 97-57-1881tnjm 2000 mg intravenously every hour as needed2,000 mg, IntraVENous, at 25 mL/hr, Administer over 2 Hours, PRN, Other, Magnesium Replacement, Starting on Wed09/18/22 at 2033 Mg Lab Replacement Action 1.4-1.6 2 gram IVPB x 1 doses (2 grams total) 1.0- 1.3 2 gram IVPB x 2 doses (4 grams total) Less than 1.0 CALL PHYSICIAN and 2 gram IVPB x 2 doses (4 grams total) Infuse at 1 gram/hr. Repeat Mag level nextAM. Not for use in Patients with CrCl less than 30 mL/min.nabumetone 750 mg oral tablet (19 sources)Nonsteroidal Anti-inflammatory DrugStart: 52-03-3055shgy 2 tablets by mouth once dailynabumetone (RELAFEN) 750 mg tablet Take 1,500 mg by mouth daily. 02/08/2016 ActiveOLANZapine 10 mg oral tablet (20 sources)Atypical AntipsychoticStart: 17-98-3141DSADAvsabl (ZYPREXA) 10 MG tabletStart: 02-08-2016 End: 14-61-9558bbmo 2 tablets by mouth once dailyOLANZapine (ZyPREXA) 10 mg tablet Take 20 mg by mouth nightly. 02/08/2016 06/23/2024 Discontinued (Therapy completed)take 1 tablet by mouth once dailyOLANZapine (ZYPREXA) 2.5 MG tablet Take 1 tablet by mouth nightly 0 Activeondansetron (ZOFRAN-ODT) disintegrating tablet 4 mg (1 source)Start: 33-32-8288hougtrjgzeb (ZOFRAN-ODT) disintegrating tablet 4 mg Potassium Chloride (1 source)Start: 08-12-0319wboeavswk chloride (KLOR-CON M) extended release tablet 40 mEqpredniSONE 20 mg oral tablet (2 sources)Start: 09-24-2022 End: 91-04-5152enav 2 tablets by mouth once dailypredniSONE (DELTASONE) 20 MG tablet Take 2 tablets by mouth daily for 2 days 4 tablet 0 09/24/2022 09/26/2022 ActiveStart: 40-39-3973axromcCSAG (DELTASONE) tablet 40 mg24 hr propranolol hydrochloride 60 mg extended release oral capsule (2 sources)beta-Adrenergic Blockertake 1 capsule by mouth once dailypropranolol (INDERAL LA) 60 MG extended release capsule Take 1 capsule by mouth daily 0 Dsmixy07 hr rivastigmine 0.192 mg/hr transdermal system (1 source)apply 1 dose transdermal route once dailyExelon 4.6 mg/24 hr transdermal film, extended release ; 1 patch transdermally once a day Refills: 0 Ordered: 12-Jun-2023 Yancy Vizcarra Generic Substitution Allowedselegiline hydrochloride 5 mg oral capsule (20 sources)Monoamine Oxidase Inhibitor, Monoamine Oxidase Type B Inhibitor Start: 28-15-7774ygfh 1 capsule by mouth twice daily before mealtimeselegiline (ELDEPRYL) 5 mg capsule Take 5 mg by mouth 2 (two) times a day before meals. 02/08/2016 Khnbtb3002 ml sodium chloride 9 mg/ml injection (5 sources)Start: .9 % sodium chloride infusionStart: 09-18-2022 IntraVENous, at 5-250 mL/hr, PRN, if patient [...] mL/hr or less into rate field of order.Start: 96-45-5181rumf 1 dose intravenously twice daily5-40 mL, IntraVENous, EVERY 12 HOURS SCHEDULED (2 times per day), First dose on Wed09/18/22 at 2100, Until Discontinued For Line Patency: Peripheral IV = 5 mL; Midline or Central Line = 10 mL/lumen.& amp;nbsp; If following IV push medication, administer flush [...] = 10 mL Midline or Central Line =20 mL/lumenStart: 65-33-0173rqte 5-40 mL intravenously once as needed5-40 mL, IntraVENous, PRN, Starting on Wed09/18/22 at [...] blood components, parenteral nutrition, contrast media, or afterobtaining blood sample) use: Peripheral IV = 10 mL Midline or Central Line = 20 mL/lumenStart: 09-18-2022 End: .9 % sodium chloride bolustamsulosin hydrochloride 0.4 mg oral capsule (20 sources)alpha-Adrenergic BlockerStart: 89-28-3493stnv 1 capsule by mouth once daily 30 minutes after mealtimetamsulosin (FLOMAX) 0.4 mg capsule,extended release 24hr Take 0.4 mg by mouth daily. 30min after meal 02/08/2016 Active traZODone hydrochloride 50 mg oral tablet (8 sources)Serotonin Reuptake InhibitorStart: 34-75-1015vpjf 1 tablet by mouth at bedtimetraZODone 50 MG tablet Take 1 tablet by mouth at bedtime. 0 02/17/2023 Activetake 1.5 tablets by mouth once daily at bedtimetraZODone 50 mg oral tablet ; 1.5 tab(s) orally once a day (at bedtime) TOTAL DOSE 75MG Refills: 0 Ordered: 12-Jun-2023 Yancy Vizcarra Generic Substitution Allowedtrihexyphenidyl hydrochloride 5 mg oral tablet (19 sources)Start: 77-93-0046ikxc 1 tablet by mouth three times daily at mealtimetrihexyphenidyl (ARTANE) 5 mg tablet Take 5 mg by mouth 3 (three) times a day with meals. 02/08/2016 Active Completed/Discontinued Medications MedicationDrug Class(es)DatesSig (Normalized)Sig (Original)acetaminophen 325 mg / HYDROcodone bitartrate 5 mg oral tablet (1 source)Opioid AgonistStart: 02-24-2023 End: 74-30-7024QQRAScuoprw-acetaminophen (NORCO) 5-325 MG per tablet 1 tablet Start: 02-24-2023 End: 92-80-2937RDRPUtyvala-acetaminophen (NORCO) 5-325 MG per tablet 1 tablet albuterol 0.833 mg/ml / ipratropium bromide 0.167 mg/ml inhalation solution (2 sources)Anticholinergic, beta2-Adrenergic AgonistStart: ampule, Inhalation, EVERY 4 HOURS PRN, Starting on Wed09/18/22 at 2033, Until Discontinued, Shortness of Breath Initiate RT Bronchodilator Protocol: Yes - ED protocolStart: 09-18-2022 End: 19-54-3097ypcofxwytct-albuterol (DUONEB) nebulizer solution 1 ampule famotidine 20 mg oral tablet (20 sources)Histamine-2 Receptor AntagonistStart: 09-82-8899mbvg 20 mg by mouth once daily20 mg, Oral, DAILY, First dose on Wed09/19/22 at 0900, Until Discontinuediopamidol (ISOVUE-370) 76 % injection 80 mL (3 sources)Start: 02-05-2024 End: 41-61-7148sgylkaxuh (ISOVUE-370) 76 % injection 80 mLStart: 02-19-2023 End: 31-33-8346ptdykxfas (ISOVUE-370) 76 % injection 80 mLStart: 09-23-2022 End: 92-00-9672zjtaghwvp (ISOVUE-370) 76 % injection 80 mLlosartan potassium 25 mg oral tablet (20 sources)Angiotensin 2 Receptor BlockerStart: 41-69-8319iisz 25 mg by mouth once daily25 mg, Oral, DAILY, First dose on 09/19/22 at 0900, Until DiscontinuedmethylPREDNISolone 40 mg injection (2 sources)CorticosteroidStart: 09-18-2022 End: 92-51-785486 mg, IntraVENous, DAILY, [place] 09/19[place]22 [place] [address] ml morphine sulfate 4 mg/ml cartridge (1 source)Opioid AgonistStart: 02-19-2023 End: 84-28-2184yppqhyge (PF) injection 4 mgStart: 02-19-2023 End: 84-05-1298rfeefubx (PF) injection 4 mgoseltamivir 75 mg oral capsule (1 source)Neuraminidase InhibitorStart: 09-18-2022 End: 56-22-611052 mg, Oral, 2 TIMES DAILY, 10 doses, First dose on Wed09/18/22 at 2100, Last dose on Wed09/23/22 at 0900polyethylene glycol 3350 98765 mg powder for oral solution (1 source)Osmotic LaxativeStart: 60-27-061657 g, Oral, DAILY PRN, Starting on Wed09/18/22 at 2033, Until Discontinued, Constipation First line therapy for constipation Problems Active Problems Problem ClassificationProblemDateDocumented DateEpisodic/ChronicAbdominal pain (1 source)Nonspecific abdominal pain; Translations: [Unspecified abdominal pain] EpisodicAdjustment disorders (1 source)Grief finding; Translations: [Adjustment disorder with depressed mood] ChronicAdministrative/social admission (1 source)Worried well; Translations: [Person with feared health complaint in whom no diagnosis is made]EpisodicAlcohol-related disorders (20 sources)Alcohol abuse; Translations: [Alcohol dependence, in remission] Onset: 95-23-0749QhelbhhEmlzget-related disorders (1 source)Alcoholic encephalopathy; 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, 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]59-28-4279FreghczjAzbcad; peripheral; and visceral artery aneurysms (1 source)Thoracic aortic aneurysm, without rupture; Translations: [THORACIC AORTIC ANEUR W/O RUPTURE]Onset: 35-23-1065KefzgoeWsqpyz (1 source)Asthma; Translations: [Unspecified asthma, uncomplicated]06-12-2023 ChronicChronic obstructive pulmonary disease and bronchiectasis (20 sources)Mild chronic obstructive pulmonary disease; Translations: [Chronic obstructive pulmonary disease, unspecified]Onset: 49-61-9816YzvskeoOklirbmu, dementia, and amnestic and other cognitive disorders (1 source)Unspecified dementia without behavioral disturbance; Translations: [Dementia]Onset: 72-59-0130DpdjnaeGdypkarcsxdnns and diverticulitis (1 source)Diverticulitis; Translations: [Diverticulitis of intestine, part unspecified, without perforation or abscess without bleeding]65-53-2761Ilkgkiv Epilepsy; convulsions (20 sources)Other generalized epilepsy and epileptic syndromes, not intractable, without status epilepticus; Translations: [Epilepsy, unspecified, not intractable, without status epilepticus]Onset: 32-40-1429NpixfyfCydcxtwcso disorders (20 sources)Gastroesophageal reflux disease without esophagitis; Translations: [Gastro-esophageal reflux disease without esophagitis]Onset: 43-07-2033Fyenqog Essential hypertension (20 sources)Essential (primary) hypertension; Translations: [Essential hypertension]Onset: 94-58-3584NychssfVpjkctko cause codes: Fall (1 source)Unspecified fall, initial encounter; Translations: [UNSPECIFIED FALL INITIAL ENCOUNTER]Onset: 12-26-9245Fouiibxg; including migraine (10 sources)Chronic intractable migraine without aura; Translations: [Chronic migraine without aura, intractable, without status migrainosus]Onset: 04-02-2023 92-06-7940NztutaeXzykh valve disorders (4 sources)Nonrheumatic aortic (valve) insufficiency; Translations: [NONRHEUMATIC AORTIC INSUFFICIENCY]Onset: 23-83-4398SedklhuCtyxdkgvzit (1 source)Internal hemorrhoids; Translations: [Other hemorrhoids]06-12-2023 EpisodicHyperplasia of prostate (20 sources)Benign prostatic hyperplasia without lower urinary tract symptoms; Translations: [Benign prostatic hyperplasia]Onset: 577326-01-7498Bugasau Hypertension with complications and secondary hypertension (20 sources)Hypertensive heart disease; Translations: [Hypertensive heart disease without heart failure]Onset: 39-66-4742CxopitfSajkjkfpo (2 sources)Influenza; Translations: [Influenza due to unidentified influenza virus with other respiratory manifestations]EpisodicMood disorders (1 source)Bipolar disorder, unspecified; Translations: [BIPOLAR DISORDER UNSPECIFIED]Onset: 65-80-8177JpsghulMljafdozjwq chest pain (2 sources)Chest pain; Translations: [Chest pain, unspecified]Onset: 02-05-2024 95-25-8201FxmjpswxCstclcwywvl deficiencies (17 sources)Deficiency of macronutrients; Translations: [Unspecified protein- calorie malnutrition]Onset: 853155-31-1112DjqrluuPahjipebpjfbtz (2 sources)Unilateral primary osteoarthritis, right hip; Translations: [Osteoarthritis of right hip joint]Onset: 14-96-0954NiiqdizMwyff aftercare (1 source)Other joint terminal attack controller (current) drug therapy; Translations: [[facility] CURRENT DRUG THERAPY]Onset: 89-21-0159IbzlajbaYqvnf aftercare (1 source)meterman (current) use of aspirin; Translations: [[facility] CURRENT USE OF ASPIRIN]Onset: 73-13-5478KuqszunfEfwoj connective tissue disease (1 source)Other symptoms and signs involving the musculoskeletal system; Translations: [Other musculoskeletalsymptoms referable to limbs]07-06-2025 EpisodicOther hereditary and degenerative nervous system conditions (20 sources)Essential tremor; Translations: [Essential tremor]Onset: 01-08-2017 ChronicOther hereditary and degenerative nervous system conditions (20 sources)Impaired cognition; Translations: [Mild cognitive impairment, so stated]Onset: 43-22-1186YusmitpHewez hereditary and degenerative nervous system conditions (2 sources)Mild cognitive impairment, so stated; Translations: [Mild cognitive impairment of uncertain or unknown etiology]Onset: 72-10-0832WsxrmcuPmgyi hereditary and degenerative nervous system conditions (20 sources)Extrapyramidal disease; Translations: [Extrapyramidal and movement disorder, unspecified]Onset: 174547-23-3944GvdnvqcKgfgy lower respiratory disease (1 source)Shortness of breath; Translations: [Shortness of breath]Onset: 05-99-4280MvnxaprgXykbx nervous system disorders (1 source)Rolon's palsy; 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]EpisodicOther non-traumatic joint disorders (3 sources)Pain in right hip; Translations: [PAIN IN RIGHT HIP]Onset: 01-27-2020 EpisodicOther non-traumatic joint disorders (1 source)Hip pain; Translations: [Pain in right hip]EpisodicOther non-traumatic joint disorders (1 source)Mass of shoulder region; Translations: [Other specified joint disorders, right shoulder]92-88-2169DlixbyuqZcmbu nutritional; endocrine; and metabolic disorders (6 sources)Obese class I; Translations: [Obesity, unspecified]Onset: 02-26-2023 42-67-1452QlkimhgPjadh nutritional; endocrine; and metabolic disorders (1 source)Obesity; Translations: [Obesity, unspecified]69-13-5240KyhnbzpBomkq nutritional; endocrine; and metabolic disorders (20 sources)Obesity caused by energy imbalance; Translations: [Class 1 obesity due to excess calories with serious comorbidity in adult]Onset: 06-23-2024 31-92-5865DhjbtsxKfxmn screening for suspected conditions (not mental disorders or infectious disease) (1 source)Abnormal electrocardiogram [ECG] [EKG]; Translations: [Abnormal electrocardiogram (ECG) (EKG)]Onset: 27-55-0854PnpkizmzCsrkw skin disorders (1 source)Infection of sebaceous cyst; Translations: [Sebaceous cyst]07-06-2025 EpisodicParkinson`s disease (20 sources)Parkinson's disease; Translations: [Parkinson's disease]Onset: 96-89-2145HjqmsqpUqdigilgg`s disease (3 sources)Parkinson`s disease; Translations: [Parkinson's disease without dyskinesia, without mention of fluctuations]Onset: 35-65-2954Enkoslyvdaf failure; insufficiency; arrest (adult) (2 sources)Laevj-dt-mmmfgna respiratory failure; Translations: [Acute and chronic respiratory failure with hypoxia]ChronicSchizophrenia and other psychotic disorders (20 sources)Schizoaffective disorder, bipolar type; Translations: [Schizoaffective disorder, bipolar type]Onset: 60-33-0723RzpujshZdpksbdjqz (except in labor) (1 source)Sepsis, unspecified organism; Translations: [SEPSIS UNSPECIFIED ORGANISM]Onset: 46-18-8347Aeabshq and strains (1 source)Sprain of other parts of lumbar spine and pelvis, initial encounter; Translations: [SPRAIN OTH PARTS LUMB SPN PELV INIT]Onset: 18-28-7061Lwpvczos Substance-related disorders (20 sources)Nicotine dependence, cigarettes, uncomplicated; Translations: [Nicotine dependence]Onset: 55-37-3612RdudzvjBifxeyi disorders (2 sources)Sick-euthyroid syndrome; Translations: [Sick-euthyroid syndrome] Onset: 605969-71-1074AhsuintyIpxoydtmahvx (20 sources)Parkinson's disease; Translations: [Parkinson's disease without dyskinesia or fluctuating manifestations]Onset: hronic Unclassified (1 source)Arthroscopy of left shoulder with repair of rotator cuffOnset: 59-75-9020Ynewobphxkdq (1 source)Complete cardiac catheterizationOnset: 58-42-1361Ejtvl infection (1 source)Disease caused by 2019-nCoV; Translations: [COVID-19]07-02-2023 EpisodicViral infection (2 sources)COVID-19; Translations: [COVID-19]Onset: 07-02-2023 Past or Other Problems Problem ClassificationProblemDateDocumented DateEpisodic/ChronicConditions associated with dizziness or vertigo (6 sources)Dizziness and giddiness; Translations: [Dizziness]Onset: 06-16-2019 EpisodicEpilepsy; convulsions (20 sources)Seizure; Translations: [Unspecified convulsions]Onset: 06-23-2024 08-92-8092VlwwxtysSpyoxgl and fatigue (14 sources)Weakness; Translations: [Asthenia]Onset: 53-09-1162Xnunhkvr Nutritional deficiencies (20 sources)Wernicke's disease; Translations: [Wernicke's encephalopathy]Onset: 207839-36-5164MfeasydfCarxd connective tissue disease (20 sources)Iliotibial band friction syndrome; Translations: [Iliotibial band syndrome, unspecified leg]Onset: 627822-51-7314ZsteypqsUuhxe nervous system disorders (12 sources)Abnormal gait; Translations: [Unsteadiness on feet]Onset: 06-20-2021 31-17-0719ObluacmpGkpzi nervous system disorders (20 sources)White matter disease; Translations: [White matter disease, unspecified]Onset: 798330-02-8511ReghtjdwXliag nervous system disorders (4 sources)Impaired cognition; Translations: [Other symptoms and signs involving cognitive functions and awareness]Onset: 932414-77-3439JpgejonjTpowl non- traumatic joint disorders (6 sources)Mass of joint of right shoulder; Translations: [Other specified joint disorders, right shoulder]Onset: 233841-21-9833RglpwklvSirxy non- traumatic joint disorders (2 sources)Other specified joint disorders, right shoulder; Translations: [Other specified joint disorders, right shoulder]Onset: 97-33-9812EgpoubxvXctow upper respiratory disease (1 source)Epistaxis; Translations: [Epistaxis]Onset: 59-86-5473LgghbgepAfbzd upper respiratory infections (2 sources)Acute upper respiratory infection, unspecified; Translations: [Acute upper respiratory infection, unspecified]Onset: 46-10-9133HwxnudzqYeufbiuzc (except that caused by tuberculosis or sexually transmitted disease) (1 source)Pneumonia, unspecified organism; Translations: [PNEUMONIA UNSPECIFIED ORGANISM]Onset: 43-37-8986ThcmnwstXeodmrntszp failure; insufficiency; arrest (adult) (8 sources)Acute hypoxemic respiratory failure; Translations: [Acute respiratory failure with hypoxia]Onset: 71-38-1501EvswomheSjiuxsiohtqlu and other psychotic disorders (3 sources)Brief psychotic disorder; Translations: [Unspecified psychosis]Onset: 207912-54-2274IgtzodpmSaxrcbtxorft (1 source)inpatient psych servicesOnset: 73-49-0866TQDKVJC: Highlighted row has not occurred!Unclassified (1 source)No Known Encounter Diagnosis Results Test NameValueInterpretationReference RangeFacilityUrine Cultureon 09-24-2024 Bacteria identified Cx Nom (U)ORGANISM: Proteus mirabilis (O:PROMIR) [place] Count >100,000 Aerobic JAZMYN Charge (NMIC56) SUSCEPTIBILITY ORGANISM: O:PROMIR ANTIBIOTIC INTERPRETATION JAZMYN Amikacin S <16 Amoxacillin/K Clavulanate S <8 Ampicillin S <8 Ampicillin/Sulbactam S <4 Aztreonam S <4 Cefazolin S <2 Cefepime S <2 Ceftazidime S <1 Ceftazidime/Avibactam S <4 Ceftolozane/Tazobactam S <2 Ceftriaxone S <1 Cefuroxime S <4 Ciprofloxacin R 1 Ertapenem S <0.5 Gentamicin S <2 Levofloxacin I 1 Meropenem S <1 Meropenem/Vaborbactam S <2 Piperacillin/Tazobactam S <8 Tobramycin S <2 Trimethoprim/Sulfamethoxazole S <0.5 S = SUSCEPTIBLE I = [...] RESISTANT TO ALL B-LACTAM DRUGS. PERFORMED BY: [place] [address] PATHOLOGIST ROOM CLERK DIANA CAT M.D.[facility] Physician GroupComment on above: Performed By: #### CUU #### [place] [address] USANuclear stress test with myocardial perfusionon 02-28-2024 Baseline Diastolic VM08rvTrORV [facility]Baseline DW17jyrNSR [facility]Baseline Systolic TO590itNfXAX [facility]ALTHNuc Stress EF65 % [facility]ALTHRecovery Stage 1 Imiwpbtt8cof:secBON [facility] HEALTHRecovery Stage 1 DA22cjgTOG [facility]ALTHRecovery Stage 2 BP142/69 mmHgBON [facility] HEALTHRecovery Stage 2 Jcdsmbig6flg:secBON [facility] HEALTHRecovery Stage 2 XY10ariGKC [facility]ALTHRecovery Stage 3 BP136/66 mmHgBON [facility] HEALTHRecovery Stage 3 Gcparigm9xjo:secBON [facility] HEALTHRecovery Stage 3 BF02omgXED [facility]ALTHRecovery Stage 4 BP145/67 mmHgBON [facility] HEALTHRecovery Stage 4 Soctkupa8smm:secBON [facility] HEALTHRecovery Stage 4 EB46raqYAT [facility]ALTHStress Stage 1 BP144/75 mmHgBON [facility]CY HEALTHStress Stage 1 Jrvdqiai1kum:secBON [facility] HEALTHStress Stage 1 KM56kcyKXR [facility]ALTHStress Stage 2 BP145/78mmHg [facility]ALTHStress Stage 2 Agdublll5pbd:secB[facility] Stress Stage 2 DP79eevJTQ [facility]ALTHStress Stage 3 BP153/63mmHgBON [facility] HEALTHStress Stage 3 Gyookowy1ggy:secBON [facility] Stress Stage 3 DR80yoqOWE [facility]ALTHStress Target VS690tmuRDM [facility] HEALTHTID1.20B[facility] HEALTHStress Combined Conclusion: The study is negative for [...] is abnormal. The ECG shows sinus rhythm, CORSET FITTER anterior TN age undetermined, non-specific ST-T abnormalities. Stress Findings A pharmacological stress test was performed using regadenoson (Lexiscan). The patient reached the end of the protocol. Stress ECG There were no arrhythmias during stress. No significant ST changes noted. There were no arrhythmiasduring recovery. No significant ST-T changes during recovery. Nuclear Study Quality Nuclear Cardiac SPECT rest then gated stress with tomographic imaging/tomography utilized for the myocardial perfusion procedure. Lexiscan was used as the stressing method and agent. (Lexiscan given via a 10 - 20 sec injection). This Single Photon Emission Computer Tomography (SPECT) study utilizedtomographic imaging/tomography for the tomographic myocardial perfusion imaging [...] Findings suggest a low risk of cardiac events.[facility] CV CPACSBON SECOURS [facility]ICHMOND COMMUNITY HOSPITALRadiology Study observation (narrative)[facility] GAPon 95-15-6064Zigse gap [Moles/Vol] 10.0 mmol/LNormal8.0-16.0N[facility] Hospital HoustonComment on above:Result Comment: ANION GAP = Sodium -(Chloride + CO2)Performed By: #### BMP, OSMOL, EGFR1, ANION, CBCWD #### [facility] [address] [address]Uinuf Gapon 43-36-6518Aqqei gap [Moles/Vol]10.0 mmol/L8.0 - 16.0 meq/LBON [facility]IAL HOSPITALComment on above:ANION GAP = Sodium -(Chloride + CO2) Performed at [facility] [address] [place] [address] BASIC METABOL PANELon 63-50-3801Wfyfwud [Mass/Vol]9.0 mg/dLNormal8.5-10.5SMidland Memorial HospitalComment on above:Performed By: #### BMP, OSMOL, EGFR1, ANION, CBCWD #### [facility] [address] [place] [address]Sdlrmyma [Moles/Vol]106 mmol/EVkwpcm06-770CytdgNexus Children's Hospital HoustonComment on above:Performed By: #### BMP, OSMOL, EGFR1, ANION, CBCWD #### [facility] [address] [place] [address] 75579LM9 [Moles/Vol]26 mmol/IFhnrwe57-99KpdkpNexus Children's Hospital Houston Comment on above:Performed By: #### BMP, OSMOL, EGFR1, ANION, CBCWD #### [facility] [address] [place] [address]88[address]Xuwwwifept [Mass/Vol]0.7 mg/dLNormal0.4-1.2SMidland Memorial HospitalComment on above:Performed By: #### BMP, OSMOL, EGFR1, ANION, CBCWD #### [facility] [address] [place] [address] 91638Ftbkllp [Mass/Vol]89 mg/jGNkrkml31-490CltvmNexus Children's Hospital Houston Comment on above:Performed By: #### BMP, OSMOL, EGFR1, ANION, CBCWD #### [facility] [address] [place] [address]3651Awqnyorgm [Moles/Vol]4.5 mmol/LNormal3.5-5.2SMidland Memorial HospitalComment on above:Performed By: #### BMP, OSMOL, EGFR1, ANION, CBCWD #### [facility] [address] [place] [address]Fayohn [Moles/Vol]142 mmol/XFthrqc883-572BxhzeNexus Children's Hospital HoustonComment on above:Performed By: #### BMP, OSMOL, EGFR1, ANION, CBCWD #### [facility] [address] [address]Xilc nitrogen [Mass/Vol]14 mg/dLNormal7-22Nex[facility] Hospital HoustonComment on above:Performed By: #### BMP, OSMOL, EGFR1, ANION, CBCWD #### [facility] [address] [place] [address] 260[address]Onlke metabolic 2000 panelon 12-15-1826Oisiogn [Mass/Vol]9.0 mg/dL 8.5 - 10.5 mg/dLBON MERCY MEMORIAL HOSPITALComment on above:Performed at [facility] [address] [place] [address] 71104Vhytdkut [Moles/Vol]106 mmol/L98 - 111 meq/LBON [facility] HOSPITALCO2 [Moles/Vol]26 mmol/L23 - 33 meq/LBON [facility]NEW [facility] HEALTHCreatinine [Mass/Vol]0.7 mg/dL0.4 - 1.2 mg/dLBON MERCY MEMORIAL HOSPITALGlucose [Mass/Vol]89 mg/dL70 - 108 mg/dLBON [facility] Potassium [Moles/Vol]4.5 mmol/L3.5 - 5.2 meq/LBON [facility] MEM[facility]IAL HOSPITALSodium [Moles/Vol]142 mmol/L135 - 145 meq/LBON [facility] HOSPITALUrea nitrogen [Mass/Vol]14 mg/dL7 - 22 mg/dLBON MERCY MEMORIAL HOSPITALBrain Natriuretic Peptide on 91-65-3317Kombxnlgcdp peptide.B prohormone N-Terminal IA [Mass/Vol]85.8 pg/mL 0.0 - 124.0 pg/mLBON MERCY MEMORIAL HOSPITALComment on above:Performed at [facility] [address] [place] [address] 70863GXZJFHWWIH OSMOLALITYon 25-65-6571Ciltawusme [Osmolality]283.1 mosm/dyIckxai151.0-300.0Nex[facility] Hospital HoustonComment on above:Performed By: #### BMP, OSMOL, EGFR1, ANION, CBCWD #### [facility] [address] [place] [address] 829[address]IHB WITH DIFFERENTIALon 70-80-5510JQV BASOPHILS0.0 thou/ya4Dlfnex 0.0-0.1SMidland Memorial HospitalComment on above:Performed By: #### BMP, OSMOL, EGFR1, ANION, CBCWD #### [facility] [address] [place] [address] 17529XLE EOSINOPHILS0.1 thou/oq1Gmklhu0.0-0.4SMidland Memorial HospitalComment on above:Performed By: #### BMP, OSMOL, EGFR1, ANION, CBCWD #### [facility] [address] [place] [address] 40692KUP IMMATURE GRANS (IG)0.01 thou/oo3Mglpuo6.00-0.07Nex[facility] Hospital HoustonComment on above:Performed By: #### BMP, OSMOL, EGFR1, ANION, CBCWD #### [facility] [address] [place] [address] 48868RIM LYMPHOCYTES2.4 thou/pu3Mgmhlh1.0-4.8N[facility] Hospital HoustonComment on above:Performed By: #### BMP, OSMOL, EGFR1, ANION, CBCWD #### [facility] [address] [place] [address] 98367PVR MONOCYTES0.6 thou/kd2Ijyjvt0.4-1.3SMidland Memorial Hospital Comment on above:Performed By: #### BMP, OSMOL, EGFR1, ANION, CBCWD #### [address] [address]JEF NEUTROPHILS3.9 thou/ca1Yuduld0.8-7.7N[facility] Hospital HoustonComment on above:Performed By: #### BMP, OSMOL, EGFR1, ANION, CBCWD #### [address] [address]Tpjtaukvr/100 WBC (Bld)0.4 %[facility] Comment on above:Performed By: #### BMP, OSMOL, EGFR1, ANION, CBCWD #### [address] [address]Velmkpcctqm/100 WBC (Bld)2.1 %[facility] Comment on above:Performed By: #### BMP, OSMOL, EGFR1, ANION, CBCWD #### [address] [address]Kjcpdjqihvc distribution width (RBC) [Ratio]13.2 %Czhhfv08.5-14.5 [facility] Hospital HoustonComment on above:Performed By: #### BMP, OSMOL, EGFR1, ANION, CBCWD #### [facility] [address] [place] [address] 773[address]Yzvfperreh (Bld) [Volume fraction]40.9 %Low42.0-52.0N[facility] Hospital HoustonComment on above:Performed By: #### BMP, OSMOL, EGFR1, ANION, CBCWD #### [address] [address]Oaxohkvkyi (Bld) [Mass/Vol]13.7 g/dLLow14.0-18.0N[facility] Hospital HoustonComment on above:Performed By: #### BMP, OSMOL, EGFR1, ANION, CBCWD #### [facility] [address] [place] [address] 69539ZHKFNURW GRANS (IG)0.1 %[facility] CenterComment on above:Performed By: #### BMP, OSMOL, EGFR1, ANION, CBCWD #### [address] [address]Mgcqttuuqrn/100 WBC (Bld)34.0 %[facility] Comment on above:Performed By: #### BMP, OSMOL, EGFR1, ANION, CBCWD #### [address] (RBC) [Entitic mass]32.5 lqSddbir07.0-33.0N[facility] Hospital HoustonComment on above:Performed By: #### BMP, OSMOL, EGFR1, ANION, CBCWD #### [place], [place] [address]MCHC (RBC) [Mass/Vol]33.5 g/vJNzlxdp91.2-35.5SMidland Memorial HospitalComment on above:Performed By: #### BMP, OSMOL, EGFR1, ANION, CBCWD #### [address] [address]ODY (RBC) [Entitic vol]96.9 hBXchl49.0-94.0N[facility] Hospital HoustonComment on above:Performed By: #### BMP, OSMOL, EGFR1, ANION, CBCWD #### [address] [address]Nfjsgpevt/100 WBC (Bld)8.3 %[facility] Comment on above:Performed By: #### BMP, OSMOL, EGFR1, ANION, CBCWD #### [address] [address]Sczbzlmvpap/100 WBC (Bld)55.1 %[facility] Comment on above:Performed By: #### BMP, OSMOL, EGFR1, ANION, CBCWD #### [facility] [address] [place] [address] 29629HVMW5 /100 wbcNormalSMidland Memorial HospitalComment on above: Performed By: #### BMP, OSMOL, EGFR1, ANION, CBCWD #### [facility] [address] [place] [address] 73621EUTFEMHE722 thou/ur7Dstppi164-063XrzloNexus Children's Hospital Houston Comment on above:Performed By: #### BMP, OSMOL, EGFR1, ANION, CBCWD #### [facility] [address] [place] [address] 19[address]Sqnlbrdn mean volume (Bld) [Entitic vol]9.5 fLNormal9.4-12.4SMidland Memorial HospitalComment on above:Performed By: #### BMP, OSMOL, EGFR1, ANION, CBCWD #### [address] [address]XFZ8.22 mill/lx4Cgt4.70-6.10N[facility] Hospital HoustonComment on above:Performed By: #### BMP, OSMOL, EGFR1, ANION, CBCWD #### [address] [address]GOG-PP98.9 hVAzlf04.0-45.0N[facility] Hospital HoustonComment on above:Performed By: #### BMP, OSMOL, EGFR1, ANION, CBCWD #### [address] [address]ZFV5.0 thou/jx3Fmsqff2.8-10.8N[facility] Hospital HoustonComment on above:Performed By: #### BMP, OSMOL, EGFR1, ANION, CBCWD #### [address] [address]JNB with Auto Differentialon 20-96-1220Osyjgowdu (Bld) [#/Vol]0.0 10*3/uLBON SEC[facility]RS MERCY HEALTHBasophils/100 WBC (Bld)0.4 %[facility] HEALTHEosinophils Absolute0.1B[facility] HEALTHEosinophils/100 WBC (Bld) 2.1 %[facility] HEALTHErythrocyte distribution width (RBC) [Entitic vol] 46.9 dHMypk61.0 - 45.0 fLBON SECOURS MERCY HEALTHErythrocyte distribution width (RBC) [Ratio]13.2 %11.5 - 14.5 %[facility] HEALTHHematocrit (Bld) [Volume fraction]40.9 %Low42.0 - 52.0 %[facility] HEALTHHemoglobin (Bld) [Mass/Vol]13.7 g/dLLowBON [facility]RS [facility] HEALTHImmature granulocytes (Bld) [#/Vol]0.01 10*3/uLBON [facility]RS MERCY HEALTHImmature granulocytes/100 WBC (Bld) 0.1 %[facility] HEALTHInterpretation and review of laboratory results AbnormalBON SECOURS MERCY HEALTHLymphocytes Absolute2.4[facility] Lymphocytes/100 WBC (Bld)34.0 %[facility]ITALH (RBC) [Entitic mass] 32.5 pg26.0 - 33.0 pgBON SECOURS [facility]CY [facility]IN[facility] HEALTH SYSTEMMCHC (RBC) [Mass/Vol]33.5 g/dLBON SECOURS [facility]CY [facility] HEALTH SYSTEMMCV (RBC) [Entitic vol]96.9 cMHqka36.0 - 94.0 fLBON SECOURS MERCY HEALTHMonocytes Absolute0.6B[facility] HEALTHMonocytes/100 WBC (Bld) 8.3 %[facility] HEALTHNeutrophils Absolute3.9[facility] Neutrophils/100 WBC (Bld)55.1 %[facility] HEALTH SYSTEMNucleated RBC/100 WBC (Bld) [Ratio]0 %/100 wbcBON SECOURS [facility]Y HEALTHComment on above:Performed at [facility] [address] [place], [place] [address]Uozxhaeq mean volume (Bld) [Entitic vol]9.5 fL9.4 - 12.4 fLBON SECOURS MERCY HEALTHPlatelets (Bld) [#/Vol] 194 10*3/uLBON [facility]CY HEALTHRBC (Bld) [#/Vol]4.22 10*6/uLLowBON SEC[facility]RS MERCY HEALTHWBC (Bld) [#/Vol]7.0 10*3/uLBON [facility] VERMI[facility] MEDICAL CENTERCTA Chest vessels WO and W contrast Sudeep . Mild atelectatic subpleural stranding both lung bases. 2. Mildly aneurysmal ascending thoracic aorta. No dissection. 3. Findings of pulmonary arterial hypertension. This report has been created using voice recognition software. It may contain minor errors which are inherent in voice recognition technology. are inherent in voice recognition technology.[facility] Omero Rivera MD - 02/05/2024 PROCEDURE: CTA THORACIC AORTA [...] technology. are inherent in voice recognition technology. [facility] CENTERRadiology Study observation (narrative)[facility] HOSPITALEKG 12-LEADon 09-06-9005MQR 12-LEAD65 65 122 82 [phone] -[phone] 44 Normal sinus rhythm Left anterior fascicular block Nonspecific ST abnormality Poor R wave progression Abnormal ECG When compared with ECG of 11-JUN-2023 12:31, No significant change was found Confirmed by KAYLEIGH ZHOU MD ([id number]) on 02/05/2024 10:31:32 PM [email or web address]&Date=&Time=15%3a35%3a28%3a00&TestType=ECG&Site=3&OutputType=PDF&Ext=PDFNormal [facility] Hospital HoustonGFR, ESTIMATEDon 23-96-1010TKL/1.73 sq M.predicted MDRD (S/P/Bld) [Vol rate/Area]mL/min/{1.73_m2}Normal>60B[facility] Comment on above:Pediatric calculator link https://www.kidney.org/professionals/kdoqi/gfr_calculatorped Effective Jun 22, 2022 [...] that affects renal tubular secretion. [place] [address] Result Comment: Pediatric calculator link https://www.kidney.org/professionals/kdoqi/gfr_calculatorped Effective Jun 22, [...] or following therapy that affects renal tubular secretion.Performed By: #### BMP, OSMOL, EGFR1, ANION, CBCWD #### [address] [address]BEVQ SENSTIVITY TROPONINon 00-93-2496FELU SENSTIVITY TROPONIN8 ng/LNormal0-12N[facility] Hospital HoustonCommarshfield medical center on above:Result Comment: The high-sensitivity troponin T result should not be compared with other troponin methodologies. Rising or falling high-sensitivity troponin T is significant if >= 6.Performed By: #### BMP, OSMOL, EGFR1, ANION, CBCWD #### [address] [address]PRVU SENSTIVITY TROPONIN8 ng/LNormal0-12N[facility] Hospital HoustonCommarshfield medical center on above:Result Comment: The high-sensitivity troponin T result should not be compared with other troponin methodologies. Rising or falling high-sensitivity troponin T is significant if >= 6.Performed By: #### BMP, OSMOL, EGFR1, ANION, CBCWD #### [address] [address]WU PRO-B NATRIURETIC PEPTIDEon 14-90-5619Zerezulotfc peptide B (Bld) [Mass/Vol]85.8 pg/mLNormal0.0-124.0N[facility] Hospital HoustonComment on above:Performed By: #### NTBNP #### [address] [address]Odekourwsjl peptide.B prohormone N-Terminal IA [Mass/Vol]on 46-59-3482FLH [facility]OSPITALNo Panel Informationon 65-31-6500YNP [facility] HOSPITALOsmolalityon 38-12-1290Apfkrkptwj Calc [Osmolality]283.1BON [facility] on above:Performed at [address] [address]Riamsqnsvg 25-24-8160Epiycnvj, High Sensitivity8 ng/L0 - 12 ng/LBON [facility] HOSPITALCommarshfield medical center on above: The high-sensitivity troponin T result should not be compared with other troponin methodologies. Rising or falling high-sensitivity troponin T is significant if >= 6. Performed at [address] [address] B[facility]OR[facility] HOSPITALTroponin, High Sensitivity8 ng/L0 - 12 ng/LBON [facility] HOSPITALComment on above: The high-sensitivity troponin T result should not be compared with other troponin methodologies. Rising or falling high-sensitivity troponin T is significant if >= 6. Performed at [facility] [address] [place] [address] XR Chest 2 Viewson . Lungs hyperinflated with flattening the diaphragms, consistent with COPD. 2. Mild cardiomegaly. Prior surgery left shoulder. Abnormal widening both AC joints. Partial calcification of the coracoclavicular ligament right side. 3. Mild atelectasis/pneumonia along both hemidiaphragms. No effusion. This report has been created using voice recognition software. It may contain minor errors which are inherent in voice recognition technology. [facility] Omero Rivera MD - 02/05/2024 PROCEDURE: XR CHEST (2 [...] which are inherent in voice recognition technology. [facility] HOSPITALRadiology Study observation (narrative)[facility] HOSPITALXR Chest 2 ViewsOrdered By: Omero Chávez on 05-43-3804IJQ [facility] Work Phone: LITHIUM LEVELon [phone] LAST DOSEsee chart NormalRye Psychiatric Hospital CenterComment on above:Performed By: #### LITHL #### [facility] [address] [place] [address] USALithium [Moles/Vol]0.29 mmol/LLow0.60-1.20[facility] Hospital CenterComment on above:Result Comment: Many variables influence therapeutic and toxic ranges; results should be interpreted in conjunction with clinical status of patient.Performed By: #### LITHL #### [facility] [address] [place] [address] USATIME LAST DOSEsee chartNoGowanda State HospitalComment on above:Performed By: #### LITHL #### [facility] [address] [place] [address] USALITHIUM LEVELon 91-54-5803TZVZ LAST FYKI3-77-0853JbzfuwHlaqtStrong Memorial HospitalComment on above:Performed By: #### LITHL #### [facility] [address] [place] [address] USALithium [Moles/Vol]0.55 mmol/LLow0.60-1.20[facility] Hospital CenterComment on above:Result Comment: Many variables influence therapeutic and toxic ranges; results should be interpreted in conjunction with clinical status of patient.Performed By: #### LITHL #### [facility] [address] [place] [address] USATIME LAST EBAM7154IhaydcTfxqnGowanda State HospitalComment on above:Performed By: #### LITHL #### [facility] [address] [place] [address] USAMRI BRAIN W/O CONTRASTon 40-02-5305CQT BRAIN W/O CONTRAST Patient Name: Sana Stanley MR #: [id number] Date of : 1955 Gender: M Service [...] increase agitation, tremors w/stress, claustophobia FINDINGS: INTRACRANIAL STRUCTURES/VENTRICLES: There are no areas of restricted diffusion [...] collection present. The proximal portions of the cro[place] of [place] demonstrate normal flow voids. ORBITS: [...] MD Patient: Sana Stanley Date of Service: 06/18/2023Strong [facility] HospitalComment on above:Performed By: #### [id number] #### [facility] Department [address] [place] [address] x. [phone] LEVELon 04-40-8638LAAG LAST DOSEsee chart Strong [facility] HospitalComment on above:Order Comment: Nurse will call when readyPerformed By: #### LITHL #### [facility] [address] [place] [address] USALithium [Moles/Vol]0.69 mmol/LNormal0.60-1.20[facility] Hospital CenterComment on above:Order Comment: Nurse will call when readyResult Comment: Many variables influence therapeutic and toxic ranges; results should be interpreted in conjunction with clinical status of patient.Performed By: #### LITHL #### [facility] [address] [place] [address] USATIME LAST DOSEsee [facility] medical centerNoGowanda State HospitalComment on above:Order Comment: Nurse will call when readyPerformed By: #### LITHL #### [facility] [address] [place] [address] USAFOLATE, SERUMon 62-19-2310Ncsvsf [Mass/Vol]ng/mLNormal4.8-24.2 [facility] Hospital CenterComment on above:Result Comment: Testing performed by [facility] [address] [place] [address]Msozjngpk By: #### FOL1 #### [facility] [address] [place] [address] USAHEMOGLOBIN A1Con 34-55-7582Szwbnlx [Mass/Vol]111 mg/dLNormal 68-114GranElizabethtown Community HospitalComment on above:Performed By: #### HA1C #### ROOM CLERK: SAÚL SALGADO [facility] [address] [place] [address]JvO1x (Bld) [Mass fraction]5.5 %Normal4.0-5.6Grand Protestant HospitalComment on above:Result Comment: Hemoglobin A1C level between 5.7% and 6.4% indicates prediabetes. Hemoglobin A1C level greater than or equal to 6.5% indicates diabetes. Hemoglobin A1C method utilizes NGSP/DCCT standardized equation.Performed By: #### HA1C #### ROOM CLERK: SAÚL SALGADO [facility] [address] [place], [place] [address]KoI2c (Bld) [Mass fraction]on 72-22-0161Fpwhnop glucose Estimated from glycated hemoglobin (Bld) [Mass/Vol]111 mg/gVTrprty86 - 114 mg/dL [facility] Other Phone: LIPID PROFILEon 39-93-9702OMZERDK RISK3 {ratio}Normal 0-5Grand [facility] SystemComment on above:Performed By: #### LIP #### ROOM CLERK: SAÚL SALGADO [facility] [address] [place], [place] [address]Grvapfykjto [Mass/Vol]110 mg/dLNormal0-200GranNovant Health Forsyth Medical Center SystemComment on above:Performed By: #### LIP #### ROOM CLERK: SAÚL SALGADO [facility] [address] [place], [place] [address]Nazzyrhdxre in LDL [Mass/Vol]46 mg/dLNormal0-100Grand Protestant HospitalComment on above:Performed By: #### LIP #### ROOM CLERK: SAÚL SALGADO [facility] [address] [place], [place] [address]Nbikuggokho in VLDL [Mass/Vol]22 mg/dLNormal0-40Grand Protestant HospitalComment on above:Performed By: #### LIP #### ROOM CLERK: SAÚL SALGADO [facility] [address] [place], [place] [address]GPO-ETRV84 mg/iBLnsfgh48-68Dvadk Protestant HospitalComment on above:Result Comment: NCEP Guidelines: HDL < 40 mg/dl is a major risk factor for CHD. HDL > 60 mg/dl is a negative risk factor for CHD.Performed By: #### LIP #### ROOM CLERK: SAÚL SALGADO [facility] [address] [place], [place] [address]Zixwpbmgdekh [Mass/Vol]112 mg/dLNormal0-150Grand Protestant HospitalComment on above:Performed By: #### LIP #### ROOM CLERK: SAÚL SALGADO [facility] [address] [place], [place] [address]Akwjgfnqzr - Chemistry and Chemistry - challengeon 06-13-2023 Cobalamin (Vitamin B12) [Mass/Vol]294 pg/mL211 - 911 pg/mLBinghamton State Hospital Other Phone: comment on above:Testing performed by [facility] [address] [place] [address]Zxjinm [Mass/Vol]ng/mL4.8 - 24.2 ng/mLBinghamton State Hospital Other Phone: comment on above:Testing performed by [facility] [address] [place] [address]Jwsfsltike - Hematology and Cell countson 54-91-4312WmY0g (Bld) [Mass fraction]5.5 %Normal4.0 - 5.6 %[facility] Other Phone: comment on above:Hemoglobin A1C level between 5.7% and 6.4% indicates prediabetes.Hemoglobin A1C level greater than or equal to 6.5% indicates diabetes. Hemoglobin A1C method utilizes NGSP/DCCT standardized equation.Lipid 1996 panelon 40-49-9862Iganucuakiz [Mass/Vol]110 mg/dLNormal0 - 200 mg/dLBinghamton State Hospital Other Phone: Yholesterol in HDL [Mass/Vol]42 mg/qBSaipjb30 - 60 mg/dLBinghamton State Hospital Other Phone: Oomment on above:NCEP Guidelines: HDL < 40 mg/dl is a major risk factor for CHD. HDL > 60 mg/dl is a negative risk factor for CHD. Cholesterol in LDL [Mass/Vol]46 mg/dLNormal0 - 100 mg/dLBinghamton State Hospital Other Phone: Qholesterol in VLDL [Mass/Vol]22 mg/dLNormal0 - 40 mg/dLBinghamton State Hospital Other Phone: Vholesterol.total/Cholesterol in HDL [Mass ratio]3 {ratio}Normal0 - 5 {ratio}[facility] Other Phone: Triglyceride [Mass/Vol]112 mg/dLNormal0 - 150 mg/dL [facility] Other Phone: TSH DL <= 0.005 mIU/L Qnon 63-89-6177NRJ Qn2.79 u[IU]/mLNormal0.27 - 4.20 u[IU]/mLBinghamton State Hospital Other Phone: TSH REFLEX FT4 IF IND.on 79-23-6021NNE, ULTRASENSITIVE2.79 u[IU]/mLNormal0.27-4.20[facility] Hospital CenterComment on above:Performed By: #### TSHIF #### ROOM CLERK: SAÚL SALGADO [facility] [address] [place], [place] [address]ZMQCGJO B12 LEVELon 22-83-5115Jesqwhvml (Vitamin B12) [Mass/Vol]294 pg/nNRcwtac083-043UckdvRye Psychiatric Hospital CenterComment on above:Result Comment: Testing performed by [employer] [address] [place] [address] 46606Thobioljs By: #### [id number] #### [employer] [address] [place] [address] USACOVID-19 PCRon 10-00-2440EPOMWvi detectedNormalNOT DETECTEDPremier Health Miami [facility] Hospital [facility] on above:Order Comment: CHEF DE PARTIE or Nasal swab in viral transport media.Result Comment: Testing was performed using JOESPH Loren SARS-CoV-2 & [...] with an alternate FDA-approved test if clinically indicated.Performed By: #### [id number], [id number] #### [address] [place] [address] HKJAFBIPI A/B ANTIGEN,DNAon 85-82-1500XQJDR Ag IA Ql (Nph)Not detectedNOT DETECTEDSelect Specialty HospitalFLUBV Ag IA Ql (Nph)Not detectedNOT DETECTED Formerly [facility] Hospital of Surry CountyInfluenza A+Bon 32-79-2176DCGKKWZQsi detected NormalNOT DETECTEDVan Tavon County HospitalComment on above:Order Comment: CHEF DE PARTIE or Nasal swab in viral transportmedia.Performed By: #### [id number], [id number] #### [facility] [address] [place] [address] GLQQEESIaa detectedNormalNOT [facility] CenterComment on above:Order Comment: CHEF DE PARTIE or Nasal swab in viral transportmedia.Performed By: #### [id number], [id number] #### [facility] [address] [place] [address] FECG-COV-2 PCR-NASOPHARYNGEALon 35-85-6974FWPV-CoV-2 (COVID-19) RNA JAVI+probe Ql (Resp)Not detectedNOT [facility]tering Health PrebleComment on above: Testing was performed using JOESPH Loren SARS-CoV-2 & [...] an alternate FDA-approved test if clinically indicated. Select Specialty HospitalANION GAPon 31-81-0565Ewzzs gap [Moles/Vol]6.0 mmol/LLow8.0-16.0 [facility] HoustonComment on above:Result Comment: ANION GAP = Sodium - (Chloride + CO2)Performed By: #### BMP, OSMOL, EGFR1, ANION, CBCWD #### [facility] [address] [place], [place] [address]Zjvqg Gapon 17-24-1272Qmwsv gap [Moles/Vol]6.0 mmol/LLow8.0 - 16.0 meq/LBON MER[facility] MEMORIAL HOSPITALComment on above:ANION GAP = Sodium -(Chloride + CO2) Performed at [facility] [address] [place] [address] Anion gap [Moles/Vol]on 53-72-2104Dnyzkriistgmks and review of laboratory resultsAbnormalBON MERCY MEMORIAL HOSPITALBASIC METABOL PANELon 22-98-0716Pdmtdad [Mass/Vol]9.3 mg/dLNormal8.5-10.5SMidland Memorial HospitalComment on above: Performed By: #### BMP, OSMOL, EGFR1, ANION, CBCWD #### [facility] [address] [place] [address] 887[address]Fpgvanql [Moles/Vol]106 mmol/JBirjzw43-608SrmgtNexus Children's Hospital HoustonComment on above:Performed By: #### BMP, OSMOL, EGFR1, ANION, CBCWD #### [facility] [address] [place] [address] 31925NM6 [Moles/Vol]27 mmol/TAtgsqw62-44LpyxmNexus Children's Hospital Houston Comment on above:Performed By: #### BMP, OSMOL, EGFR1, ANION, CBCWD #### [facility] [address] [place] [address] 45874Bnnnmaqjtu [Mass/Vol]0.8 mg/dLNormal0.4-1.2SMidland Memorial HospitalComment on above:Performed By: #### BMP, OSMOL, EGFR1, ANION, CBCWD #### [facility] [address] [place] [address] 47790Sfkplgn [Mass/Vol]101 mg/fINvppul79-146DzvhgNexus Children's Hospital Houston Comment on above:Performed By: #### BMP, OSMOL, EGFR1, ANION, CBCWD #### [facility] [address] [place] [address] 67591Atmxbgxfd [Moles/Vol]4.7 mmol/LNormal3.5-5.2SMidland Memorial HospitalComment on above:Performed By: #### BMP, OSMOL, EGFR1, ANION, CBCWD #### [facility] [address] [place] [address] 48264Wjswrz [Moles/Vol]139 mmol/TCsrqxu952-210NuztcNexus Children's Hospital HoustonComment on above:Performed By: #### BMP, OSMOL, EGFR1, ANION, CBCWD #### [facility] [address] [place] [address] 53527Bmvu nitrogen [Mass/Vol]14 mg/dLNormal7-22N[facility] Hospital HoustonComment on above:Performed By: #### BMP, OSMOL, EGFR1, ANION, CBCWD #### [facility] [address] [place] [address] 65[address]Cgkik metabolic 2000 panelon 23-69-6838Cgglmnv [Mass/Vol]9.3 mg/dL 8.5 - 10.5 mg/dLBON SECVALLEY MEDICAL CENTERY TRINITY HEALTH SYSTEMComment on above:Performed at [facility] [address] [place] [address] 55[address]Oznizkhq [Moles/Vol]106 mmol/L98 - 111 meq/LBON SECOURS MERCY HEALTHCO2 [Moles/Vol]27 mmol/L23 - 33 meq/LBON [facility]CY HEALTHCreatinine [Mass/Vol]0.8 mg/dL0.4 - 1.2 mg/dLBON SECOURS MERCY HEALTHGlucose [Mass/Vol]101 mg/dL70 - 108 mg/dLBON SECOURS MERCY HEALTH Potassium [Moles/Vol]4.7 mmol/L3.5 - 5.2 meq/LBON SECOURS [facility]CY TRINITY HEALTH SYSTEMSodium [Moles/Vol]139 mmol/L135 - 145 meq/LBON [facility]RS MERCY HEALTHUrea nitrogen [Mass/Vol]14 mg/dL7 - 22 mg/dLBON SECOURS MERCY HEALTHCALCULATED OSMOLALITYon 99-77-6450Zlvsvidabr [Osmolality]278.2 mosm/mwRzgjxh496.0-300.0N[facility] Hospital HoustonComment on above:Performed By: #### BMP, OSMOL, EGFR1, ANION, CBCWD #### [facility] [address] [place] [address] 50338YRI WITH DIFFERENTIALon 74-18-3103OIK BASOPHILS0.0 thou/kc7Odvkxd 0.0-0.1SMidland Memorial HospitalComment on above:Performed By: #### BMP, OSMOL, EGFR1, ANION, CBCWD #### [facility] [address] [place] [address] 33604YDO EOSINOPHILS0.1 thou/zm7Ppquvv3.0-0.4SMidland Memorial HospitalComment on above:Performed By: #### BMP, OSMOL, EGFR1, ANION, CBCWD #### [facility] [address] [place] [address] 73866IMP IMMATURE GRANS (IG)0.02 thou/ky6Clnoph1.00-0.07N[facility] Hospital HoustonComment on above:Performed By: #### BMP, OSMOL, EGFR1, ANION, CBCWD #### [address] [address]CAG LYMPHOCYTES1.9 thou/us7Xanvii6.0-4.8N[facility] Hospital HoustonComment on above:Performed By: #### BMP, OSMOL, EGFR1, ANION, CBCWD #### [address] [address]JNV MONOCYTES0.6 thou/zm8Jxvukl7.4-1.3SMidland Memorial Hospital Comment on above:Performed By: #### BMP, OSMOL, EGFR1, ANION, CBCWD #### [address] [address]URR NEUTROPHILS4.8 thou/ml9Vydixe8.8-7.7N[facility]'s Hospital HoustonComment on above:Performed By: #### BMP, OSMOL, EGFR1, ANION, CBCWD #### [facility] [address] [place] [address] 22298Dpotgfcek/100 WBC (Bld)0.4 %NormalBON MERCY MEMORIAL HOSPITALComment on above:Performed By: #### BMP, OSMOL, EGFR1, ANION, CBCWD #### [facility] [address] [place] [address] 07131Tadlxkosilg/100 WBC (Bld)1.1 %NormalBON [facility] Comment on above:Performed By: #### BMP, OSMOL, EGFR1, ANION, CBCWD #### [address] [address]Qrdkdghcqls distribution width (RBC) [Ratio]13.5 %Txrowz92.5-14.5 [facility] HOSPITALComment on above:Performed By: #### BMP, OSMOL, EGFR1, ANION, CBCWD #### [address] [address]Ywkvsjotsh (Bld) [Volume fraction]44.0 %Rqtepe14.0-52.0B[facility] COMMUNITY HOSPITALComment on above:Performed By: #### BMP, OSMOL, EGFR1, ANION, CBCWD #### [address] [address]Fjsrigbtxq (Bld) [Mass/Vol]14.2 g/bUIedmdi29.0-18.0BON [facility]IAL HOSPITALComment on above:Performed By: #### BMP, OSMOL, EGFR1, ANION, CBCWD #### [address] [address]RVRXAKND GRANS (IG)0.3 %[facility] Medical CenterComment on above:Performed By: #### BMP, OSMOL, EGFR1, ANION, CBCWD #### [address] [address]Yxjkivqtkmv/100 WBC (Bld)25.2 %[facility] Comment on above:Performed By: #### BMP, OSMOL, EGFR1, ANION, CBCWD #### [address] [address]MOJ (RBC) [Entitic mass]32.7 asEykyyh22.0-33.0B[facility] HOSPITALComment on above:Performed By: #### BMP, OSMOL, EGFR1, ANION, CBCWD #### [address] [address]SMWD (RBC) [Mass/Vol]32.3 g/yRUvfgpo10.2-35.5BON [facility]IAL HOSPITALComment on above:Performed By: #### BMP, OSMOL, EGFR1, ANION, CBCWD #### [facility] [address] [place] [address] 92166QSB (RBC) [Entitic vol]101.4 hPIivf45.0-94.0B[facility]IAL HOSPITALComment on above:Performed By: #### BMP, OSMOL, EGFR1, ANION, CBCWD #### [facility] [address] [place] [address] 10953Ftaqtjlzw/100 WBC (Bld)8.5 %[facility] Memorial HospitalComment on above:Performed By: #### BMP, OSMOL, EGFR1, ANION, CBCWD #### [facility] [address] [place] [address] 02762Rkxtsamnwpw/100 WBC (Bld)64.5 %[facility] Comment on above:Performed By: #### BMP, OSMOL, EGFR1, ANION, CBCWD #### [facility] [address] [place] [address] 05198BNRK3 /100 wbcNormalSMidland Memorial HospitalComment on above: Performed By: #### BMP, OSMOL, EGFR1, ANION, CBCWD #### [facility] [address] [place] [address] 15564VCWOOTEF777 thou/bp2Lifgdx808-066VvoctNexus Children's Hospital Houston Comment on above:Performed By: #### BMP, OSMOL, EGFR1, ANION, CBCWD #### [facility] [address] [place] [address] 39[address]Mgojbrwh mean volume (Bld) [Entitic vol]9.2 fLLow9.4-12.4B[facility] HOSPITALComment on above:Performed By: #### BMP, OSMOL, EGFR1, ANION, CBCWD #### [facility] [address] [place] [address] 01684YRH7.34 mill/xk7Hrg9.70-6.10N[facility] Hospital HoustonComment on above:Performed By: #### BMP, OSMOL, EGFR1, ANION, CBCWD #### [facility] [address] [place] [address] 54962GPS-FH90.9 eQSoyx31.0-45.0N[facility] Hospital HoustonComment on above:Performed By: #### BMP, OSMOL, EGFR1, ANION, CBCWD #### [facility] [address] [place] [address] 94545BAR0.5 thou/ae3Ycfoyv4.8-10.8Saint [facility] Lake Memorial HospitalComment on above:Performed By: #### BMP, OSMOL, EGFR1, ANION, CBCWD #### [facility] [address] [place] [address] 39751VPN with Auto Differentialon 70-88-5061Oqivagcxq (Bld) [#/Vol]0.0 10*3/uLBON MERCY MEMORIAL HOSPITALEosinophils Absolute0.1BON [facility]TON Erythrocyte distribution width (RBC) [Entitic vol]50.9 zBUtqk77.0 - 45.0 fLBON MERCY MEMORIAL HOSPITALImmature granulocytes (Bld) [#/Vol]0.02 10*3/uLBON SECSt. Francis Hospitalmature granulocytes/100 WBC (Bld)0.3 %[facility] Interpretation and review of laboratory resultsAbnormalBON [facility] Lymphocytes Absolute1.9BON SECKETTERING HEALTH DAYTONMonocytes Absolute0.6BON SECVAL[facility] CENTERY [facility] HEALTH SYSTEMNucleated RBC/100 WBC (Bld) [Ratio]0 %/100 wbcBON [facility]OURS RICHMOND COMMUNITY HOSPITALComment on above:Performed at [facility] [address] [place] [address] 93906Xleswuihf (Bld) [#/Vol]200 10*3/uLBON SECNEW ORLEANS EAST HOSPITAL HEALTHRBC (Bld) [#/Vol]4.34 10*6/uLLowBON MERCY MEMORIAL HOSPITALSegs Absolute4.8BON SECKETTERING HEALTH DAYTONWBC (Bld) [#/Vol]7.5 10*3/uLBON SECNEW ORLEANS EAST HOSPITAL HEALTHBON [facility] HEALTHEKG 12-LEADon 78-06-0115JWQ 12-LEAD79 79 158 80 376 431 62 -44 57 Normal sinus rhythm Left axis deviation Abnormal ECG When compared with ECG of 18-SEP-2022 17:04, Ventricular rate has decreased BY 39 BPM Confirmed by CLARENCE BUSTILLO ([id number]) on 06/11/2023 6:42:45 PM [email or web address]&Date=&Time=12%3a31%3a29%3a00&TestType=ECG&Site=3&OutputType=PDF&Ext=PDFNormal [facility]'s Hospital HoustonGFR, ESTIMATEDon 16-63-4022MWO/1.73 sq M.predicted MDRD (S/P/Bld) [Vol rate/Area]mL/min/{1.73_m2}Normal>60SaMemorial Hermann Surgical Hospital KingwoodComment on above:Result Comment: Pediatric calculator link https://www.kidney.org/professionals/kdoqi/gfr_calculatorped Effective Jun 22, [...] or following therapy that affects renal tubular secretion.Performed By: #### BMP, OSMOL, EGFR1, ANION, CBCWD #### [facility] [address] [place] [address] 908[address]Uneiesvoor Filtration Rate, Estimatedon 74-97-5106OSD/1.73 sq M.predicted MDRD (S/P/Bld) [Vol rate/Area]- [facility]ITAL CENTERComment on above:Pediatric calculator link https://www.kidney.org/professionals/kdoqi/gfr_calculatorped Effective Jun 22, 2022 [...] that affects renal tubular secretion. Performed at [facility] [address] [place] [address] HEPATIC FUNCTION PANELon 88-30-5708Bcyiflg [Mass/Vol]4.1 g/dLNormal3.5-5.1SMidland Memorial HospitalComment on above:Performed By: #### HEPPA, TSH3, HSTRP, LACDS #### [facility] [address] [place] [address] 59311IDA [Catalytic activity/Vol]93 U/ILkmwae14-917TdwdvNexus Children's Hospital HoustonComment on above:Performed By: #### HEPPA, TSH3, HSTRP, LACDS #### [facility] [address] [place] [address] 23061NEY [Catalytic activity/Vol]11 U/FRjahki05-76MrzbhNexus Children's Hospital HoustonComment on above:Performed By: #### HEPPA, TSH3, HSTRP, LACDS #### [address] [address]DVZ [Catalytic activity/Vol]15 U/LNormal5-40SMidland Memorial HospitalComment on above:Performed By: #### HEPPA, TSH3, HSTRP, LACDS #### [address] [address]Gdglwjdcu [Mass/Vol]0.4 mg/dLNormal0.3-1.2SMidland Memorial HospitalComment on above:Performed By: #### HEPPA, TSH3, HSTRP, LACDS #### [address] [address]Zaxpjhfvl.indirect [Mass/Vol]mg/dLNormal0.0-0.3SMidland Memorial HospitalComment on above:Performed By: #### HEPPA, TSH3, HSTRP, LACDS #### [facility] [address] [place] [address] 26051Wkpzrvr [Mass/Vol]6.5 g/dLNormal6.1-8.0[facility] Comment on above:Performed By: #### HEPPA, TSH3, HSTRP, LACDS #### [address] [address]MDGL SENSTIVITY TROPONINon 18-54-2680HCWV SENSTIVITY TROPONIN8 ng/LNormal0-12N[facility]'s Hospital HoustonComment on above:Result Comment: The high-sensitivity troponin T result should not be compared with other troponin methodologies. Rising or falling high-sensitivity troponin T is significant if >= 6.Performed By: #### HEPPA, TSH3, HSTRP, LACRIKI #### [facility] [address] [place], [place] [address]Vibacee function 2000 panelon 48-25-9533Dhhbpjq BCG dye [Mass/Vol] 4.1 g/dL3.5 - 5.1 g/dLBON [facility] HEALTHALP [Catalytic activity/Vol]93 U/L 38 - 126 U/LBON MERCY MEM[facility]IAL HOSPITALALT No additional P-5'-P [Catalytic activity/Vol]11 U/L11 - 66 U/LBON [facility] HEALTHAST [Catalytic activity/Vol]15 U/L5 - 40 U/LBON [facility] HEALTHBilirubin [Mass/Vol]0.4 mg/dL0.3 - 1.2 mg/dLBON MERCY MEMORIAL HOSPITALBilirubin.conjugated [Mass/Vol]mg/dL 0.0 - 0.3 mg/dLB[facility] HEALTHProtein [Mass/Vol]6.5 g/dL6.1 - 8.0 g/dL B[facility] HOSPITALComment on above:Performed at [facility] [address] [place], [place] [address]LACTIC ACID, SEPSISon 17-20-5829FPIJNR ACID, SEPSIS1.1 mmol/LNormal0.5-1.9[facility] Comment on above:Performed By: #### HEPPA, TSH3, HSTRP, LACDS #### [facility] [address] [place] [address] 92421Buzbepo, Sepsison 09-92-9789Jpwhbv Acid, Sepsis1.1 mmol/L0.5 - 1.9 mmol/LBON MER[facility]ORIAL HOSPITALComment on above:Performed at [facility] [address] [place] [address] 969[address]NMRB[facility] HOSPITALNo Panel Information on 61-90-6594JHT [facility] HEALTHOsmolalityon 70-63-4351Qplgvnretv Calc [Osmolality]278.2B[facility] HOSPITALComment on above:Performed at [facility] [address] [place] [address]25[address]DNY DL <= 0.005 mIU/L Qnon 99-05-5481CCF Qn1.040 m[IU]/LBON [facility]IAL HOSPITALComment on above:Performed at [address] [address]DLF THIRD GENERATIONon 32-74-1828SBE THIRD GENERATION1.040 uIU/mLNormal0.400-4.200 [facility] Hospital HoustonComment on above:Performed By: #### BMP, OSMOL, EGFR1, ANION, CBCWD #### [address] [address]Kzcgdarcek 46-35-5942Skivtkfe, High Sensitivity8 ng/L0 - 12 ng/L [facility] HOSPITALCommarshfield medical center on above: The high-sensitivity troponin T result should not be compared with other troponin methodologies. Rising or falling high-sensitivity troponin T is significant if >= 6. Performed at [address] [address] URINALYSISon 55-41-8917Iorwmhbqq Ql (U)NegativeNormalNEGUT Health HendersonComment on above:Performed By: #### UA2 #### [address] [address]FEMXOBTIMREAICKfrxpnGYX-XW.CLOUDNexus Children's Hospital HoustonComment on above:Performed By: #### UA2 #### [address] [address]Ptivs (U)YELLOWNormalYELLOW-STRAWNexus Children's Hospital Houston Comment on above:Performed By: #### UA2 #### [facility] [address] [place] [address] 785[address]Xhcxlqk Ql (U)NegativeNormalNEGUT Health Henderson Comment on above:Performed By: #### UA2 #### [address] [address]Zpyktinvsw Ql (U)NegativeNormalNEGUT Health Henderson Comment on above:Performed By: #### UA2 #### [facility] [address] [place] [address] 45625Rlvdhkg Ql (U)NegativeNormalNEGUT Health Henderson Comment on above:Performed By: #### UA2 #### [facility] [address] [place] [address] 84477OEGCXWBMRKUuivmumkRdchzbKWYBWOUNViiev Rita's Medical CenterComment on above:Performed By: #### UA2 #### [facility] [address] [place] [address] 38405Gzsswsj Ql (U)NegativeNormalNEGUT Health Henderson Comment on above:Performed By: #### UA2 #### [address] [address]hK (U)7.5 [pH]Normal5.0 - 9.0N[facility] Hospital HoustonComment on above:Performed By: #### UA2 #### [address] [address]Spxunun Ql (U)NegativeNormalNEGUT Health Henderson Comment on above:Performed By: #### UA2 #### [address] [address]Fikiphrx gravity (U) [Rel density]1.125Urqhxw9.002-1.030N[facility] Hospital HoustonComment on above:Performed By: #### UA2 #### [address] [address]Vydyktgcmsrs Qn (U)1.0 {Luis Daniel'U}/dLNormal0.0 - 1.0N[facility] Hospital HoustonComment on above:Performed By: #### UA2 #### [address] [address]Wfcuipguwi dipstick panel Auto test strip (U)on 06-11-2023 Bilirubin Ql (U)NegativeNEGATIVEBON SEC[facility] HEALTHCharacter (U)CLEAR CLR-SL.CLOUDBON SECOURS AULTMAN ORRVILLE HOSPITAL HEALTHComment on above:Performed at [facility] [address] [address]Utzdt (U)YELLOWYELLOW-STRAWBON SECOURS MERCY HEALTHGlucose Auto test strip Ql (U)NegativeNEGATIVE mg/dlBON SECOURS [facility]ICKelly HEALTHHemoglobin Auto test strip Ql (U)NegativeNEGATIVEBON [facility]OURS MERCY HEALTHKetones Auto test strip Ql (U)NegativeNEGATIVEBON [facility] MERCY HEALTHLeukocyte esterase Auto test strip Ql (U)NegativeNEGATIVEBON [facility]OURS MERCY HEALTHNitrite Auto test strip Ql (U)NegativeNEGATIVEBON SECOURS MERCY HEALTHpH (U)7.5 [pH]5.0 - 9.0B[facility] HEALTHProtein (U) [Mass/Vol]Negative NEGATIVE mg/dlBON SECOURS MERCY HEALTHSpecific gravity Refractometry automated (U) [Rel density]1.0181.002 - 1.030B[facility] SEC[facility]RS MERCY HEALTHUrobilinogen Ql (U) 1.0B[facility] HEALTHB[facility]Y HEALTHXR CHEST (2 VW)on 06-11-2023 1. No acute cardiopulmonary finding. 2. Age indeterminate compression fractures seen at T11, T12, and L1. 3. Mild cardiomegaly. This report has been created using voice recognition software. It may contain minor errors which are inherent in voice recognition technology. Final report electronically signed by Dr Milla Dinh on 06/11/2023 12:28 PM Milla Thakkar MD - 06/11/2023 PROCEDURE: XR CHEST (2 [...] Dr Milla Dinh on 06/11/2023 12:28 PM [facility] COMM[facility]ITY HOSPITALRadiology Study observation (narrative)B[facility] HOSPITALXR CHEST (2 VW)Ordered By: Milla Dinh on 20-23-3407GIF [facility] Work Phone: cT HEAD WITHOUT CONTRASTon 39-39-6606PY HEAD WITHOUT CONTRASTCT head without contrast INDICATION: ; DIAGNOSES: -dizzy; [...] Yocasta Morfin MD 02/26/2023 4:39 PM CDT Workstation: [id number] Va Medical CenterComplete Blood Counton 02-26-2023 Basophils/100 WBC (Bld)0.6 %Normal0.0-3.0[facility] Medical CenterComment on above:Performed By: #### [id number], 7821707, [id number] #### [facility] [address] [place] [address] [phone]/100 WBC (Bld)1.1 %Normal0.0-4.0[facility] Comment on above:Performed By: #### [id number], 7351919, [id number] #### [facility] [address] [place] [address] [phone] distribution width (RBC) [Ratio]13.9 %Udplvx12.5-14.5Ch[facility] Va Medical CenterComment on above:Performed By: #### [id number], 0310317, 3755888 #### [facility] [address] [place] [address] Pefvsvuseo (Bld) [Volume fraction]43.1 %Rsefxz56.0-52.0[facility] Medical CenterComment on above:Performed By: #### [id number], 5979521, 1992603 #### [facility] [address] [place] [address] Esxyovkixn (Bld) [Mass/Vol]14.6 g/cOTqqdew48.0-18.0[facility] Medical CenterComment on above:Performed By: #### [id number], 5099135, 9302114 #### [facility] [place] [address] Rmesfsqjfvz/100 WBC (Bld)27.0 %Wwlbyr85.6-49.6Ch[facility] Medical CenterComment on above:Performed By: #### [id number], 1793537, [id number] #### [facility] [place] [address] QYB (RBC) [Entitic mass]31.1 mlAtvdnk62.0-32.0[facility] Medical CenterComment on above:Performed By: #### 3303521, 9810912, [id number] #### [facility] [address] [place] [address] ZGBD (RBC) [Mass/Vol]33.9 g/iDKrrprx38.0-37.0[facility] Medical CenterComment on above:Performed By: #### 6283004, 9725591, 5047904 #### [facility] [place] [address] VLG (RBC) [Entitic vol]91.7 eFJcyfgs92.0-94.0[facility] Medical CenterComment on above:Performed By: #### 1282895, 6176535, 8730249 #### [facility] [address] [place] [address] Hfypqlbkx/100 WBC (Bld)6.7 %Normal4.1-12.4[facility] Comment on above:Performed By: #### 7362995, 1138345, 5935211 #### [facility] [address] [place] [address] Zbgyxyxtglo/100 WBC (Bld)64.6 %Wlydmo96.4-72.5Ch[facility] Medical CenterComment on above:Performed By: #### 8270164, 5437833, [id number] #### [facility] [address] [place] [address] SUJ514 thou/snayEsbxbi493-803SayChillicothe Va Medical CenterComment on above:Performed By: #### 5038821, 5430028, [id number] #### [facility] [place] [address] OBG8.71 mil/cummNormal4.70-6.10[facility] Medical CenterComment on above:Performed By: #### 4186169, 0762309, 3080161 #### [facility] [address] [place] [address] HJWKAVGsqbbhLAGki Wert County HospitalComment on above:Performed By: #### 4798889, 3972892, 6359384 #### [facility] [place] [address] CRE0.8 thou/cummNormal4.8-10.8[facility] Medical CenterComment on above:Performed By: #### 0018858, 1287958, 5872139 #### [facility] [address] [place] [address] Jwgvkoomjgvjs Metabolic Profile Hollis 84-20-4464Esnyyzp [Mass/Vol]4.0 g/dLNormal3.5-5.0[facility] Medical CenterComment on above:Performed By: #### 4090465, 2624401, [id number] #### [facility] [address] [place] [address] Idlfaet/Globulin [Mass ratio]1.2 {ratio}Normal1.2-1.5[facility] CenterComment on above:Performed By: #### [id number], [id number], [id number] #### [facility] [address] [place] [address] YXW [Catalytic activity/Vol]90 U/BJxlnzi81-428Twt [facility]Comment [facility] above:Performed By: #### [id number], [id number], [id number] #### [facility] [address] [place] [address] ACF [Catalytic activity/Vol]23 U/OOzrwld16-91Oqs [facility]Comment [facility] above:Performed By: #### [id number], [id number], [id number] #### [facility] [address] [place] [address] Axuwo gap [Moles/Vol]7.4 mmol/LLow10.0-20.0[facility] Comment on above:Performed By: #### [id number], [id number], [id number] #### [facility] [address] [place], [place] [address] WGQ [Catalytic activity/Vol]19 U/GUddxzs65-87XxnChillicothe Va Medical CenterComment on above:Performed By: #### [id number], [id number], [id number] #### [facility] [address] [place] [address] KKMQ2.4 mg/dLNormal0.3-1.2Chillicothe Va Medical CenterComment on above: Performed By: #### [id number], [id number], [id number] #### [facility] [address] [place] [address] Vqnvkle [Mass/Vol]9.0 mg/dLNormal8.4-10.2[facility] Comment on above:Performed By: #### [id number], [id number], [id number] #### [facility] [address] [place] [address] Iethvvei [Moles/Vol]104 mmol/OTjlaqe02-389ByhChillicothe Va Medical Center Comment on above:Performed By: #### [id number], [id number], [id number] #### [facility] [address] [place] [address] VU7 [Moles/Vol]33 mmol/VGfpt84-95RwaChillicothe Va Medical CenterComment on above:Performed By: #### [id number], 3122339, [id number] #### [facility] [address] [place] [address] Bkpwcuspao [Mass/Vol]0.9 mg/dLNormal0.4-1.1[facility] Comment on above:Performed By: #### [id number], [id number], [id number] #### [facility] [address] [place] [address] GKV/1.73 sq M.predicted among non-blacks MDRD (S/P/Bld) [Vol rate/Area]mL/min/{1.73_m2}NormalChillicothe Va Medical CenterComment on above:Result Comment: Estimated Glomerular filtration Rate Reference Ranges: GFR, mL/min/1.73m2 >= 60 Adequate 30 - 59 Moderately decreased GFR 15 - 29 Severely decreased GFR <18 Kidney failure (or dialysis) GFR calculated using abbreviated MDRD formula. MDRD equation not suitable for patients who are under 18, have unstable creatinine concentrationsPerformed By: #### [id number], [id number], [id number] #### [facility] [address] [place] [address] Nkkorfyy (S) [Mass/Vol]3.3 g/dLNormal2.9-3.3[facility] Comment on above:Performed By: #### [id number], [id number], [id number] #### [facility] [address] [place] [address] Nedjcux [Mass/Vol]119 mg/iLLvovwy43-735PlhChillicothe Va Medical Center Comment on above:Result Comment: Reference Range for FASTING patients is 70-100 mg/dLPerformed By: #### [id number], [id number], [id number] #### [facility] [address] [place] [address] Lisgpflvb [Moles/Vol]4.4 mmol/LNormal3.5-5.1[facility] Comment on above:Performed By: #### [id number], 4118504, [id number] #### [facility] [address] [place] [address] Yovgpsq [Mass/Vol]7.3 g/dLNormal6.4-8.3[facility] Comment on above:Performed By: #### [id number], 7656519, [id number] #### [facility] [address] [place] [address] Bqxvig [Moles/Vol]140 mmol/EJruwii607-126VqmChillicothe Va Medical Center Comment on above:Performed By: #### [id number], 1468258, [id number] #### [facility] [place] [address] Htlx nitrogen [Mass/Vol]14 mg/dLNormal7-22[facility] Comment on above:Performed By: #### [id number], 5058151, [id number] #### [facility] [address] [place] [address] Lwwrcwew-HSon 36-14-2326HKKU-HS3.10 ng/LNormal0.00-20.00Chillicothe Va Medical CenterComment on above:Result Comment: Troponin I, High Sensitivity is below the upper reference limit (20 ng/L) and results are not consistent with myocardial infarction or injury, provided the specimen was collected more than 3-hours from the onset of symptoms. Patients with active symptoms, ischemic ECG changes and/or concerning clinical presentations should be considered for urgent evaluation irrespective of troponin results.Performed By: #### [id number], [id number], [id number] #### [facility] [address] [place] [address] Aggkhihwvs w/Reflex C and Son 99-07-1138Tjeza (U)YELLOWNormalYELLOW [facility] HospitalComment on above:Performed By: #### [id number] #### [facility] [address] [place] [address] RB8.385Tvscqa9.010-1.025[facility] HospitalComment on above: Performed By: #### [id number] #### [facility] [address] [place] [address] RDYKRCvqyivkwSrmyxqLEXPIHHHLlk [facility] HospitalComment on above: Performed By: #### [id number] #### [facility] [address] [place] [address] UDABZXfrvyrnsWapmpwPAWCFWGTWmm [facility] HospitalComment on above: Performed By: #### [id number] #### [facility] [address] [place] [address] MPMMDGrnzabtjQzxvswJZZPZTCITqv [facility] HospitalComment on above: Performed By: #### [id number] #### [facility] [address] [place] [address] FRUOOHZqazcoqqXelqokWWITQJRRJxc [facility] HospitalComment on above:Performed By: #### [id number] #### [facility] [address] [place] [address] RWZYXWieuwmprAdyxhqCLDGFHFAEhq [facility] HospitalComment on above: Performed By: #### [id number] #### [facility] [address] [place] [address] PDHP7.5Fgypyq3.0-8.0[facility] HospitalComment on above: Performed By: #### [id number] #### [facility] [address] [place] [id number] KQPVPQhrtgkfoMzbgfhQMIEAFXWVnx [facility] HospitalComment on above: Performed By: #### [id number] #### [facility] [address] [place] [address] BRVXQ2.0 E.U./dLNormal0.2-1.0Chillicothe Va Medical CenterComment on above:Performed By: #### [id number] #### [facility] [address] [place] [address] SUYHYDYRMTSrlqpzYJUEAUzh [facility] HospitalComment on above: Performed By: #### [id number] #### [facility] [address] [place] [address] CNYWGCLhexzgKJPug [facility] HospitalComment on above:Performed By: #### [id number] #### [facility] [place] [address] Csicyjprijln (U) [Mass/Vol]NegativeNormalNEGSt. Rita's HospitalComment on above:Performed By: #### [id number] #### [facility] [address] [place] [address] XW CHEST AP PORTABLEon 31-40-3729SF CHEST AP PORTABLEEXAM DESCRIPTION: XR CHEST AP PORTABLE CLINICAL HISTORY: [...] Emelina Melton MD 02/26/2023 4:37 PM CDT Workstation: [id number] Clinic [facility] HIP RIGHT WO CONTRASTon 02-24-2023 1. Degenerative change with joint space [...] by DR CHAPARRITA CAMP on 02/24/2023 4:54 PMWCOH Chaparrita Robbins MD - 02/24/2023 PROCEDURE: CT HIP RIGHT WO CONTRAST CLINICAL INFORMATION: Fall, pain, findings of aseptic necrosis indeterminant for fracture . COMPARISON: Plain radiographs obtained on the same day.. TECHNIQUE: Axial thin section CT images were obtained through the right hip. No contrast was given.Coronal and sagittal reconstructions were obtained. All CT [...] the sacroiliac joint. There is vascular calcification. 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 No definite acute fracture. This report has been created using voice recognition software. It may contain minor errors which are inherent in voice recognition technology. Final report electronically signed by Dr. Cristian Antonio on 02/24/2023 4:26 PMWCOARTESIA [facility] Cristian Mendes MD - 02/24/2023 PROCEDURE: XR HIP 2-3 [...] Dr. Cristian Antonio on 02/24/2023 4:26 PM [employer] Work Phone: radiology Study observation (narrative)[employer] Work Phone: XR HIP 2-3 VW W PELVIS RIGHTOrdered By: Cristian Antonio on 12-08-2497SUQ [employer] Work Phone: Anion Gapon 22-47-3775Zguto gap [Moles/Vol]13.0 mmol/L 8.0 - 16.0 meq/LBON [employer] TechnologiesComment on above:ANION GAP = Sodium - (Chloride + CO2) Performed at [facility] [address] [place] [address] CBC with Auto Differentialon 50-32-0461Coqhzkqrd (Bld) [#/Vol]0.0 10*3/uLBON [employer] TechnologiesBasophils/100 WBC (Bld)0.3 %[employer] Eosinophils Absolute0.1BON V[employer] TechnologiesEosinophils/100 WBC (Bld)0.9 %[facility] HEALTHErythrocyte distribution width (RBC) [Entitic vol]46.6 fL High35.0 - 45.0 fLBON [facility]RS MERCY HEALTHErythrocyte distribution width (RBC) [Ratio]13.2 %11.5 - 14.5 %[facility] HEALTHHematocrit (Bld) [Volume fraction]44.3 %42.0 - 52.0 %[facility] HEALTHHemoglobin (Bld) [Mass/Vol] 14.2 g/dLBON [facility] HEALTHImmature granulocytes (Bld) [#/Vol]0.03 10*3/uL [facility] HEALTHImmature granulocytes/100 WBC (Bld)0.3 %[facility] HEALTHInterpretation and review of laboratory resultsAbnormalB[facility]CY HEALTHLymphocytes Absolute2.5B[facility] HEALTHLymphocytes/100 WBC (Bld)26.1 %BON [facility]OSPITALH (RBC) [Entitic mass]30.8 pg26.0 - 33.0 pg BON SECOH[facility] SURGICAL HOSPITALHC (RBC) [Mass/Vol]32.1 g/dLLowBON SECKETTERING HEALTH DAYTONMCV (RBC) [Entitic vol]96.1 uGUsaz16.0 - 94.0 fLBON SECKETTER[facility] DAYTON Monocytes Absolute0.8B[facility] HEALTHMonocytes/100 WBC (Bld)7.9 %BON SECKETTERING HEALTH DAYTONNeutrophils/100 WBC (Bld)64.5 %[facility] SECKETTERING HEALTH DAYTON Nucleated RBC/100 WBC (Bld) [Ratio]0 %/100 wbcBON SECNEW ORLEANS [facility]AST [facility] HEALTHComment on above:Performed at [facility] [address] [place] [address] Platelet mean volume (Bld) [Entitic vol]9.3 fLLow9.4 - 12.4 fLBON [facility]OURS MERCY HEALTHPlatelets (Bld) [#/Vol]202 10*3/uLBON [facility] HEALTHRBC (Bld) [#/Vol]4.61 10*6/uLLowBON [facility]CY HEALTHSegs Absolute6.3B[facility] HEALTHWBC (Bld) [#/Vol]9.7 10*3/uLBON [facility] ABDOMEN PELVIS W IV CONTRAST Additional Contrast? Noneon 02-19-2023 1. Punctate calcification [...] by DR CHAPARRITA CAMP on 02/19/2023 8:00 PMWCOH Chaparrita Robbins MD - 02/19/2023 PROCEDURE: CT ABDOMEN PELVIS [...] atherosclerotic calcification in the abdominal aorta and iliacarteries.. There is no adenopathy. The urinary bladder [...] DR CHAPARRITA CAMP on 02/19/2023 8:00 PM [employer] Phone: radiology Study observation (narrative)[employer] Phone: ct ABDOMEN PELVIS W IV CONTRAST Additional Contrast? NoneOrdered By: Chaparrita Camp on [id number] [employer] Phone: Comprehensive metabolic 2000 panelon 99-88-1315Qwxsqhx BCG dye [Mass/Vol]4.2 g/dL3.5 - 5.1 g/dLBON V[employer] TechnologiesALP [Catalytic activity/Vol]103 U/L38 - 126 U/LBON [employer]ALT No additional P-5'-P [Catalytic activity/Vol]19 U/L11 - 66 U/LBON [employer] TechnologiesComment on above:Performed at [facility] [address] [place], [place] [address]XSL [Catalytic activity/Vol]18 U/L5 - 40 U/LBON [employer] TechnologiesBilirubin [Mass/Vol]0.3 mg/dL0.3 - 1.2 mg/dLBON [employer] TechnologiesCalcium [Mass/Vol]9.1 mg/dL8.5 - 10.5 mg/dLBON [facility] HEALTHChloride [Moles/Vol]104 mmol/L98 - 111 meq/LBON [facility] HEALTHCO2 [Moles/Vol]22 mmol/LLow23 - 33 meq/LBON [facility]OSPITALCreatinine [Mass/Vol]0.8 mg/dL0.4 - 1.2 mg/dLBON [facility] HOSPITALGlucose [Mass/Vol]104 mg/dL70 - 108 mg/dLBON [facility] Interpretation and review of laboratory resultsAbnormalBON [facility] Potassium [Moles/Vol]4.6 mmol/L3.5 - 5.2 meq/LBON [facility]OSPITALProtein [Mass/Vol]7.1 g/dL6.1 - 8.0 g/dLBON [facility]CY MEMORIAL HOSPITALSodium [Moles/Vol]139 mmol/L135 - 145 meq/LBON [facility] HOSPITALUrea nitrogen [Mass/Vol]16 mg/dL7 - 22 mg/dLBON [facility]IAL HOSPITALGlomerular Filtration Rate, Estimatedon 58-81-0299WUC/1.73 sq M.predicted MDRD (S/P/Bld) [Vol rate/Area]- PINFBON OhioHealthment on above:Pediatric calculator link https://www.kidney.org/professionals/kdoqi/gfr_calculatorped Effective Jun 22, 2022 [...] that affects renal tubular secretion. Performed at [address] [address] Lipaseon 88-24-9597Wvmwmu [Catalytic activity/Vol]39.1 U/L5.6 - 51.3 U/LBON [facility] on above:Performed at [address] [address]Ln Panel Informationon 47-82-4495DTK [facility]IAL HOSPITALOsmolalityon 56-82-7405Vhvaphozpk Calc [Osmolality]279.0BON [facility] HOSPITALCommarshfield medical center on above:Performed at [address] [address]Wppbhhzimq 67-38-6611Megpvhiw T< 0.010ng/mlBON [facility] HEALTHComment on above:<0.010 ng/ml Normal > or = 0.010 ng/ml [...] an acute or chronic condition. Performed at [facility] [address] [address] B[facility] HEALTHUrinalysis dipstick W Reflex Culture panel (U)on 77-06-6781Qpkzbqhjh Ql (U)NegativeNEGATIVEBON [facility]CY HEALTHCharacter (U) CLEARCLEAR-SL CLOUDBON SECOURS MERCY HEALTHComment on above:Performed at [facility] [address] [address]Mvcjx, UAYELLOWSTRAW-YELLOWBON [facility] HEALTHGlucose Auto test strip Ql (U)NegativeNEGATIVE mg/dlBON [facility] HEALTHHemoglobin Auto test strip Ql (U)NegativeNEGATIVEB[facility] HEALTHKetones Auto test strip Ql (U)NegativeNEGATIVEB[facility] HEALTHNitrite Ql (U)NegativeNEGATIVEBON [facility] MERCY HEALTHpH (U)6.5 [pH]5.0 - 9.0B[facility] HEALTHProtein (U) [Mass/Vol]NegativeNEGATIVEBON [facility] HEALTHSpecific gravity Refractometry automated (U) [Rel density]1.0181.002 - 1.030B[facility] HEALTHUrobilinogen, Urine1.0B[facility] HEALTHWBC LM.HPF (Urine sed) [#/Area]NegativeNEGATIVEBON [facility]RS MERCY HEALTHB[facility] HEALTHAmmonia (P) [Mass/Vol]on 67-12-2965Nigjdup (P) [Moles/Vol]22 umol/L 11 - 60 umol/LBON [facility] HEALTHComment on above:Performed at [facility] [address] [place], [place] [address]YKH SECVALLEY MEDICAL CENTERY HEALTHAnion Gapon 66-29-9664Kcpir gap [Moles/Vol]8.0 mmol/L8.0 - 16.0 meq/LBON SECNEW [facility] MERCY HEALTHComment on above:ANION GAP = Sodium -(Chloride + CO2) Performed at [facility] [address] [place] [address] Basic metabolic 2000 panelon 82-82-0734Zbymbsx [Mass/Vol]9.0 mg/dL8.5 - 10.5 mg/dLBON SECVALLEY MEDICAL CENTERY HEALTHComment on above:Performed at [facility] [address] [place] [address]Ewdboity [Moles/Vol]106 mmol/L98 - 111 meq/L [facility] HEALTHCO2 [Moles/Vol]26 mmol/L23 - 33 meq/LBON [facility] HEALTHCreatinine [Mass/Vol]0.7 mg/dL0.4 - 1.2 mg/dLB[facility] Glucose [Mass/Vol]112 mg/uERlsk86 - 108 mg/dLBON [facility] HEALTHPotassium [Moles/Vol]4.6 mmol/L3.5 - 5.2 meq/LBON [facility] HEALTHSodium [Moles/Vol] 140 mmol/L135 - 145 meq/LBON [facility] HEALTHUrea nitrogen [Mass/Vol]12 mg/dL7 - 22 mg/dLBON [facility] HEALTHCBC with Auto Differentialon 10-14-2022 Basophils (Bld) [#/Vol]0.0 10*3/uLBON [facility] HEALTHBasophils/100 WBC (Bld)0.3 %[facility] HEALTHEosinophils Absolute0.1B[facility] HEALTHEosinophils/100 WBC (Bld)1.8 %[facility] HEALTHErythrocyte distribution width (RBC) [Entitic vol]46.5 yHScab03.0 - 45.0 fLBON [facility]RS MERCY HEALTHErythrocyte distribution width (RBC) [Ratio]13.6 %11.5 - 14.5 %[facility] HEALTHHematocrit (Bld) [Volume fraction]39.6 %Low42.0 - 52.0 %[facility] HEALTHHemoglobin (Bld) [Mass/Vol]13.3 g/dLLowBON [facility] HEALTH Immature granulocytes (Bld) [#/Vol]0.01 10*3/uLBON [facility] HEALTHImmature granulocytes/100 WBC (Bld)0.1 %[facility] HEALTHInterpretation and review of laboratory resultsAbnormalBON [facility]CY HEALTHLymphocytes Absolute2.3B[facility] HEALTHLymphocytes/100 WBC (Bld)31.5 %BON SECOH[facility]LEY SURGICAL HOSPITALH (RBC) [Entitic mass]31.1 pg26.0 - 33.0 pgBON SECOURS [facility] CENTERHC (RBC) [Mass/Vol]33.6 g/dLBON SECOURS [facility]Y [facility]IAL HOSPITALV (RBC) [Entitic vol]92.7 fL80.0 - 94.0 fLBON [facility]RS [facility] HEALTHMonocytes Absolute0.7B[facility] HEALTH Monocytes/100 WBC (Bld)9.1 %[facility] HEALTHNeutrophils/100 WBC (Bld) 57.2 %[facility] HEALTHNucleated RBC/100 WBC (Bld) [Ratio]0 %/100 wbcBON SECKETTERING HEALTH DAYTONComment on above:Performed at [facility] [address] [place] [address]Krqfsikz mean volume (Bld) [Entitic vol]9.3 fLLow9.4 - 12.4 fLBON [facility] HEALTHPlatelets (Bld) [#/Vol]203 10*3/uLBON [facility] HEALTHRBC (Bld) [#/Vol]4.27 10*6/uLLowBON [facility]RS [facility] HEALTHSegs Absolute4.1BON SECOURS [facility] - CINCINNATIWBC (Bld) [#/Vol]7.2 10*3/uLBON SECOURS [facility] SECNEW [facility] HEALTHGlomerular Filtration Rate, Estimatedon 41-44-5529PBB/1.73 sq M.predicted MDRD (S/P/Bld) [Vol rate/Area]- PINFBON SECKETTERING HEALTH DAYTONComment on above:Pediatric calculator link https://www.kidney.org/professionals/kdoqi/gfr_calculatorped Effective Jun 22, 2022 [...] that affects renal tubular secretion. Performed at [facility] [address] [place] [address] Hepatic function 2000 panelon 41-61-0346Tzapseb BCG dye [Mass/Vol]3.8 g/dL3.5 - 5.1 g/dLBON [facility] HEALTHALP [Catalytic activity/Vol]109 U/L38 - 126 U/L [facility] V[employer] TechnologiesALT No additional P-5'-P [Catalytic activity/Vol]10 U/L Low11 - 66 U/LBON [facility] HEALTHAST [Catalytic activity/Vol]16 U/L5 - 40 U/LBON [facility] HEALTHBilirubin [Mass/Vol]0.3 mg/dL0.3 - 1.2 mg/dLBON [employer] TechnologiesBilirubin.conjugated [Mass/Vol]mg/dL0.0 - 0.3 mg/dLBON [facility] HEALTHProtein [Mass/Vol]6.7 g/dL6.1 - 8.0 g/dLBON [employer] TechnologiesComment on above:Performed at [facility] [address] [address]Fj Panel Informationon 04-65-1375Jijxurmzawuzea and review of laboratory resultsAbnormalBON [facility] WARSTUFF [facility] DIVISIONAmbition, Inc HEALTH Osmolalityon 68-32-8727Tezuflzzbo Calc [Osmolality]279.9BON [employer] Comment on above:Performed at [facility] [address] [place] [address]Isbshevstk dipstick W Reflex Microscopic panel (U)on 41-99-4806Jswufsuy, UA NONE SEENFEW/NONE SEENBON [employer] TechnologiesBilirubin Ql (U)NegativeNEGATIVE BON [facility] MEDICAL CENTERTrackRCasts LM.LPF (Urine sed) [#/Area]NONE SEEN/lpfBON [facility] MEDICAL CENTERTrackRCharacter (U)CLEARCLR-SL.CLOUDBON SECOURS [facility]ALTH Charcoal LM Ql (Urine sed)NONE SEENB[facility] HEALTHComment on above: Performed at [facility] [address] [place] [address]Bnusw (U) YELLOWYELLOW-STRAWBON SECOURS MERCY HEALTHCrystals LM Ql (Urine sed)NONE SEEN NONE SEENBON [facility]RS MERCY HEALTHEpithelial Cells, UA0-23-5/hpf /hpfBON [facility] MERCY HEALTHEpithelial cells.renal LM.HPF (Urine sed) [#/Area]NONE SEENNONE SEEN [facility] HEALTHFungi.yeastlike LM Ql (Urine sed)NONE SEENNONE SEENBON [facility] HEALTHGlucose Auto test strip Ql (U)NegativeNEGATIVE mg/dlBON [facility] HEALTHHemoglobin Auto test strip Ql (U)NegativeNEGATIVEBON [facility] HEALTHKetones Auto test strip Ql (U)NegativeNEGATIVEBON [facility] HEALTHLeukocyte esterase Auto test strip Ql (U)NegativeNEGATIVEBON [facility] HEALTHNitrite Auto test strip Ql (U)NegativeNEGATIVEBON [facility]CY HEALTHpH (U)6.5 [pH]5.0 - 9.0B[facility] HEALTHProtein (U) [Mass/Vol]Negative NEGATIVE mg/dlBON [facility]CY HEALTHRBC LM.HPF (Urine sed) [#/Area]NONE SEEN0- 2/hpf /hpfBON [facility]CY HEALTHSpecific [place], UA1.0171.002 - 1.030B[facility] HEALTHUrobilinogen, Urine1.0B[facility] HEALTHWBC LM.HPF (Urine sed) [#/Area]NONE SEEN0-4/hpf /hpfBON [facility] MERCY HEALTHBON [facility] HEALTHCTA CHEST W WO CONTRASTon . Respiratory motion limits the detection of lobar and more distal pulmonary arterial filling defects. No central pulmonary arterial filling defect is identified to suggest the presence of pulmonaryembolism. 2. Dependent atelectasis and patchy bilateral lower [...] Dr Linn Shabazz on 09/23/2022 10:14 AM [facility] Linn Whitehead MD - 09/23/2022 PROCEDURE: CTA CHEST W [...] limits visualization of the distal pulmonary arterial branches.No central pulmonary arterial filling defect is identified. [...] opacities are observed. Subpleural calcified right upper lobepulmonary nodules measure 2 to 3 mm (series [...] is identified to suggest the presence of pulmonaryembolism. 2. Dependent atelectasis and patchy bilateral lower [...] Dr Linn Shabazz on 09/23/2022 10:14 AM [employer] Work Phone: radiology Study observation (narrative)[employer] Work Phone: cTA CHEST W WO CONTRASTOrdered By: Linn Shabazz on [phone] [employer] Work Phone: POCT Glucoseon 42-40-3834Uvqmbuo [Mass/Vol]127 mg/dL High70 - 108 mg/dlBON [employer] TechnologiesComment on above:Performed at [facility] [address] [place], [place] [address]Interpretation and review of laboratory resultsAbnormalSENTARA RMH MEDICAL CENTERRiseSmart [facility]ALTH SYSTEMBON SECAmbition, Inc [facility]ALTH SYSTEMAnion Gapon 63-80-1957Dmyqj gap [Moles/Vol]12.0 mmol/L8.0 - 16.0 meq/LBON [employer] TechnologiesComment on above:ANION GAP = Sodium -(Chloride + CO2) Performed at [facility] [address] [place] [address] Basic Metabolic Panel w/ Reflex to MGon 13-43-4039Mbonwyk [Mass/Vol]8.5 mg/dL8.5 - 10.5 mg/dLBON [employer] TechnologiesComment on above:Performed at [facility] [address] [place] [address]Vgtginyh [Moles/Vol]106 mmol/L98 - 111 meq/LBON [facility] CENTERTrackRCO2 [Moles/Vol]25 mmol/L23 - 33 meq/LBON [facility] CENTERTrackRCreatinine [Mass/Vol]0.6 mg/dL0.4 - 1.2 mg/dLBON [facility] CENTERTrackRGlucose [Mass/Vol]83 mg/dL70 - 108 mg/dLBON [employer] Potassium [Moles/Vol]4.3 mmol/L3.5 - 5.2 meq/LBON [facility] CENTERTrackRSodium [Moles/Vol]143 mmol/L135 - 145 meq/LBON [employer] TechnologiesUrea nitrogen (BldV) [Mass/Vol]14 mg/dL7 - 22 mg/dLBON [facility] HEALTHCBCon 09-22-2022 Erythrocyte distribution width (RBC) [Ratio]13 %11.5 - 14.5 %BON [facility] HOSPITALErythrocyte distribution width (RBC) [Ratio]45.3 kMNxut11.0 - 45.0 fLBON SECOURS RICHMOND COMMUNITY HOSPITALHematocrit (Bld) [Volume fraction]39.8 %Low42.0 - 52.0 %BON [facility] HOSPITALHemoglobin (Bld) [Mass/Vol]13.0 g/dLLowBON [facility] COMM[facility]ITY HOSPITALInterpretation and review of laboratory resultsAbnormalBON PROTESTANT HOSPITALH (RBC) [Entitic mass]31.1 pg26.0 - 33.0 pgSENTARA LEIGH HOSPITALHC (RBC) [Mass/Vol]32.7 g/dLBON PROTESTANT HOSPITALV (RBC) [Entitic vol]95.2 fL High80.0 - 94.0 fLBON SECOURS RICHMOND COMMUNITY HOSPITALPlatelet mean volume (Bld) [Entitic vol]9.2 fLLow9.4 - 12.4 fLPoplar Springs Hospital on above:Performed at [facility] [address] [place], [place] [address]Fgliusbiq (Bld) [#/Vol]188 10*3/uLBON SECOURS RICHMOND COMMUNITY HOSPITALRBC (Bld) [#/Vol]4.18 10*6/uLLowBON MERCY MEMORIAL HOSPITALWBC (Bld) [#/Vol]7.4 10*3/uLCARILION NEW RIVER VALLEY MEDICAL CENTERGlomerular Filtration Rate, Estimatedon [id number]/1.73 sq M.predicted MDRD (S/P/Bld) [Vol rate/Area]- PINFBON [facility] on above:Pediatric calculator link [email or web address]://www.[email or web address].org/professionals/kdoqi/gfr_[email or web address] Effective Jun 22, 2022 [...] that affects renal tubular secretion. Performed at [facility] [address] [place] [address] No Panel Informationon [id number] [facility] HOSPITALPOCT Glucoseon 09-99-2515Jplqxso [Mass/Vol]104 mg/dL70 - 108 mg/dlBON [facility] Comment on above:Performed at [facility] [address] [place] [id number] [facility]OSPITALPOCT Glucoseon [id number] [Mass/Vol]138 mg/hJIrpb74 - 108 mg/dlBON MERCY MEMORIAL HOSPITALComment on above:Performed at [place], [place] [address]Interpretation and review of laboratory resultsAbnormLake Taylor Transitional Care HospitalAnion Gapon [id number] gap [Moles/Vol]10.0 mmol/L8.0 - 16.0 meq/LBON [facility]OSPITALComment on above:ANION GAP = Sodium -(Chloride + CO2) [place] [address] Basic Metabolic Panel w/ Reflex to MGon [id number] [Mass/Vol]8.3 mg/dLLow 8.5 - 10.5 mg/dLBON MERCY [facility]ORIAL HOSPITALComment on above:Performed at [address] [address]Kiegpwio [Moles/Vol]108 mmol/L98 - 111 meq/LBON [facility] HOSPITALCO2 [Moles/Vol]25 mmol/L23 - 33 meq/LBON [facility]OSPITALCreatinine [Mass/Vol]0.8 mg/dL0.4 - 1.2 mg/dLBON [facility] HOSPITALGlucose [Mass/Vol]117 mg/fOViqd98 - 108 mg/dLBON [facility] HOSPITALInterpretation and review of laboratory resultsAbnormSentara Northern Virginia Medical CenterPotassium [Moles/Vol]4.4 mmol/L3.5 - 5.2 meq/LBON [facility] Sodium [Moles/Vol]143 mmol/L135 - 145 meq/LBON [facility] HOSPITALUrea nitrogen (BldV) [Mass/Vol]16 mg/dL7 - 22 mg/dLBON [facility] HOSPITALCBCon 09-20-2022 Erythrocyte distribution width (RBC) [Ratio]13.5 %11.5 - 14.5 %[facility]OSPITALErythrocyte distribution width (RBC) [Ratio]48.3 qKCgav89.0 - 45.0 fLBON [facility]ICHMOND COMM[facility] HOSPITALHematocrit (Bld) [Volume fraction]41.0 %Low42.0 - 52.0 %[facility]OSPITALHemoglobin (Bld) [Mass/Vol]13.2 g/dLLowBON [facility]CY [facility] HOSPITALInterpretation and review of laboratory resultsAbnormalBON PROTESTANT HOSPITALH (RBC) [Entitic mass]31.4 pg26.0 - 33.0 pgBON PROTESTANT HOSPITALHC (RBC) [Mass/Vol]32.2 g/dLBON PROTESTANT HOSPITALV (RBC) [Entitic vol]97.4 fL High80.0 - 94.0 fLBON [facility]ICHMOND COMM[facility] HOSPITALPlatelet mean volume (Bld) [Entitic vol]9.5 fL9.4 - 12.4 fLBON [facility]ICHMON[facility] COMM[facility] HOSPITALComment on above:Performed at [facility] [address] [place] [address] 22005Plgdxfdhs (Bld) [#/Vol]185 10*3/uLBON [facility] HOSPITALRBC (Bld) [#/Vol]4.21 10*6/uLLowBON MERCY MEMORIAL HOSPITALWBC (Bld) [#/Vol]9.2 10*3/uLBON [facility] MEDICAL CENTERGlomerular Filtration Rate, Estimatedon 84-90-8486GJV/1.73 sq M.predicted MDRD (S/P/Bld) [Vol rate/Area]- PINFBON [facility] on above: Pediatric calculator link https://www.kidney.org/professionals/kdoqi/gfr_calculatorped Effective [...] that affects renal tubular secretion. [place] [address] No Panel Informationon [id number] [facility] HOSPITALAnion Gapon 09-19-2022 Anion gap [Moles/Vol]8.0 mmol/L8.0 - 16.0 meq/LBON [facility] on above:ANION GAP = Sodium -(Chloride + CO2) Performed at [address] StreetBasi Metabolic Panel w/ Reflex to MGon 09-19-2022 Calcium [Mass/Vol]8.2 mg/dLLow8.5 - 10.5 mg/dLBON [facility] on above:[place] [address] Chloride [Moles/Vol]105 mmol/L98 - 111 meq/LBON [facility] HOSPITALCO2 [Moles/Vol]26 mmol/L23 - 33 meq/LBON [facility]ITALCreatinine [Mass/Vol] 0.8 mg/dL0.4 - 1.2 mg/dLBON [facility] HOSPITALGlucose [Mass/Vol]150 mg/dLHigh 70 - 108 mg/dLBON [facility] HOSPITALInterpretation and review of laboratory resultsAbnormalBON [facility] HOSPITALPotassium [Moles/Vol]5.4 mmol/LHigh3.5 - 5.2 meq/LBON [facility]OSPITALSodium [Moles/Vol]139 mmol/L135 - 145 meq/LBON [facility] HOSPITALUrea nitrogen (BldV) [Mass/Vol]13 mg/dL7 - 22 mg/dLBON SANFORD VERMILLION MEDICAL CENTERCBC with Auto Differentialon [id number] (Bld) [#/Vol]0.0 10*3/uLBON [facility] Basophils/100 WBC (Bld)0.1 %B[facility] HOSPITALEosinophils Absolute0.0BON [facility] HOSPITALEosinophils/100 WBC (Bld)0 %[facility] Erythrocyte distribution width (RBC) [Ratio]13.3 %11.5 - 14.5 %[facility] HEALTHErythrocyte distribution width (RBC) [Ratio]47.7 lMTuvy47.0 - 45.0 fLBON [facility]CY HEALTHHematocrit (Bld) [Volume fraction]41.8 %Low42.0 - 52.0 %[facility] HEALTHHemoglobin (Bld) [Mass/Vol]13.4 g/dLLowBON [facility] HEALTHImmature Grans (Abs)0.03B[facility] HEALTHImmature granulocytes/100 WBC (Bld)0.3 %[facility] HEALTHInterpretation and review of laboratory resultsAbnormalBON [facility] HEALTHLymphocytes Absolute0.8LowBON [facility]RS MERCY HEALTHLymphocytes/100 WBC (Bld)8.2 %[facility] HEALTHH (RBC) [Entitic mass]31.5 pg26.0 - 33.0 pgBON [facility]RS [facility]ICY HEALTHMCHC (RBC) [Mass/Vol] 32.1 g/dLLowBON [facility] HEALTHMCV (RBC) [Entitic vol]98.1 cCSxkt09.0 - 94.0 fLBON [facility]CY HEALTHMonocytes Absolute0.4B[facility] Monocytes/100 WBC (Bld)4.3 %[facility] HEALTHnRBC0/100 wbcBON [facility]Y HEALTHComment on above:Performed at [facility] [address] [place] [address]00Yafjxexo mean volume (Bld) [Entitic vol]9.7 fL9.4 - 12.4 fLBON [facility]CY HEALTHPlatelets (Bld) [#/Vol]171 10*3/uLBON [facility] RBC (Bld) [#/Vol]4.26 10*6/uLLowBON [facility] HEALTHSegmented neutrophils/100 WBC (Bld)87.1 %[facility] HEALTHSegs Absolute8.2HighBON [facility] MERCY HEALTHWBC (Bld) [#/Vol]9.4 10*3/uLBON [facility]CY HEALTHBON [facility] HEALTHGlomerular Filtration Rate, Estimatedon 81-80-9661FMH/1.73 sq M.predicted MDRD (S/P/Bld) [Vol rate/Area]- PINFBON [facility] Comment on above:Pediatric calculator link https://www.kidney.org/professionals/kdoqi/gfr_calculatorped Effective Jun 22, 2022 [...] that affects renal tubular secretion. Performed at [address]Potassiumon 11-83-5581Vtrwgvxxo [Moles/Vol]4.8 mmol/L3.5 - 5.2 meq/LBON OhioHealthment on above:Low level specimen hemolysis is present as indicated by the interference level index on the Cleopatra analyzer. The reported K+ level may be falsely increased. If clinically warranted, recollection of the specimen is suggested. Performed at [address]Anion Gapon 32-50-9322Ezkxo gap [Moles/Vol]11.0 mmol/L 8.0 - 16.0 meq/LBON OhioHealthment on above:ANION GAP = Sodium - (Chloride + CO2) [place] [address] Brain Natriuretic Peptideon 16-80-8894Xfcpnoqwmyc peptide B (Bld) [Mass/Vol] 121.9 pg/mL0.0 - 124.0 pg/mLPoplar Springs Hospital on above:Performed at [place], [place] [address]CBC with Auto Differentialon 69-29-4273Glngwxiub (Bld) [#/Vol]0.0 10*3/uLBON [facility] HOSPITALBasophils/100 WBC (Bld)0.2 %[facility]OSPITALEosinophils Absolute 0.0B[facility] HEALTHEosinophils/100 WBC (Bld)0.2 %[facility] HEALTHErythrocyte distribution width (RBC) [Ratio]13.4 %11.5 - 14.5 %[facility] HEALTHErythrocyte distribution width (RBC) [Ratio]47.9 vRQqzo50.0 - 45.0 fLBON [facility]CY HEALTHHematocrit (Bld) [Volume fraction]40.0 %Low42.0 - 52.0 %[facility] HEALTHHemoglobin (Bld) [Mass/Vol]13.1 g/dLLowBON [facility] HEALTHImmature Grans (Abs)0.03B[facility] HEALTHImmature granulocytes/100 WBC (Bld)0.4 %[facility] HEALTHInterpretation and review of laboratory resultsAbnormalBON [facility]CY HEALTHLymphocytes Absolute0.6Low [facility] HEALTHLymphocytes/100 WBC (Bld)7.6 %[facility] MCH (RBC) [Entitic mass]31.7 pg26.0 - 33.0 pgBON SECOURS MERCY HEALTHMCHC (RBC) [Mass/Vol]32.8 g/dLBON [facility]CY HEALTHMCV (RBC) [Entitic vol]96.9 fLHigh 80.0 - 94.0 fLBON [facility]CY HEALTHMonocytes Absolute0.7B[facility] HEALTHMonocytes/100 WBC (Bld)8.3 %[facility] HEALTHnRBC0/100 wbcBON [facility] MERCY HEALTHComment on above:Performed at [facility] [address] [place] [address] 74469Dqkmiedl mean volume (Bld) [Entitic vol]9.2 fLLow9.4 - 12.4 fLBON [facility]CY HEALTHPlatelets (Bld) [#/Vol]161 10*3/uLBON [facility] HEALTHRBC (Bld) [#/Vol]4.13 10*6/uLLowBON [facility] HEALTHSegmented neutrophils/100 WBC (Bld)83.3 %[facility] HEALTHSegs Absolute6.8B[facility] HEALTHWBC (Bld) [#/Vol]8.2 10*3/uLBON [facility] HEALTHBON [facility] HEALTHCOVID-19 & Influenza Comboon [id number] ADetected Critically abnormalNOT DETECTEDBON SECNEW [facility] HEALTHINFLUENZA BNot detected NOT DETECTEDBON [facility] MEDICAL CENTERNoveltyLab SELECT [facility] SPECIALTY [facility] CINCINNATIComment on above:Performed at [facility] [address] [place], [place] [address]Interpretation and review of laboratory resultsAbnormalBON MERCY MEMORIAL HOSPITALSARS-CoV-2 (COVID-19) RNA JAVI+probe Ql (Unsp spec)Not detectedNOT DETECTEDBON MER[facility]IAL HOSPITALComment on above:Not Detected results do not preclude SARS-CoV-2 infection [...] nasal swab specimens for use under the FDA s Emergency Use Authorization (EUA) only. Fact sheet for Healthcare Providers: https://www.fda.gov/media/554453/download Fact sheet for Patients: https://www.fda.gov/media/005175/download [facility] ClickstBLANCHARD VALLEY HEALTH SYSTEMComprehensive Metabolic Panel w/ Reflex to MGon [id number] [Mass/Vol]3.8 g/dL3.5 - 5.1 g/dLBON [facility] MED[facility] CENTERNoveltyLab [facility] CLINICRiseSmart HEALTHALP (Bld) [Catalytic activity/Vol]89 U/L38 - 126 U/LBON SECAmb[facility], Inc HEALTHALT [Catalytic activity/Vol]U/LLow11 - 66 U/LBON [facility] MEDICAL CENTERAmbition, Inc HEALTHComment on above:Performed at [facility] [address] [place] [address]61FJK [Catalytic activity/Vol]27 U/L5 - 40 U/LBON SECAmb[facility] Inc HEALTHBilirubin [Mass/Vol]0.3 mg/dL0.3 - 1.2 mg/dLBON [facility]RELLA MEDICAL CENTERAmbition, Inc HEALTHCalcium [Mass/Vol]8.4 mg/dLLow8.5 - 10.5 mg/dLBON [facility] HEALTHChloride [Moles/Vol]101 mmol/L98 - 111 meq/LBON [facility] HEALTHCO2 [Moles/Vol]23 mmol/L23 - 33 meq/LBON [facility] HEALTHCreatinine [Mass/Vol]0.8 mg/dL0.4 - 1.2 mg/dLBON [facility] HEALTHGlucose [Mass/Vol]125 mg/kVAufa61 - 108 mg/dLBON [facility] HEALTHInterpretation and review of laboratory resultsAbnormalBON [facility] HEALTHPotassium [Moles/Vol]4.3 mmol/L3.5 - 5.2 meq/LB[facility] Protein [Mass/Vol]6.5 g/dL6.1 - 8.0 g/dLBON [facility] HEALTHSodium [Moles/Vol]135 mmol/L135 - 145 meq/LBON [facility] HEALTHUrea nitrogen (BldV) [Mass/Vol]14 mg/dL7 - 22 mg/dLBON [facility] MERCY HEALTHEKG 12 LeadOrdered By: Annette Beaulieu on 28-82-7477Eijvjx [id number] [facility] Work Phone: P [id number] [facility] Work Phone: P-R [id number] msBON [facility] Work Phone: Q-T [id number] msBON [facility] Work Phone: QRS [id number] msBON [facility] Work Phone: QTc Calculation (Sandro)445 msBON [facility] Work Phone: R Lindsey-36degreesBON [facility] Work Phone: T [id number] [facility] Work Phone: Ventricular [id number] [facility] Work Phone: [facility] Work Phone: EKG 12 Leadon 35-18-8847Fmkyp tachycardia Left axis deviation Abnormal ECG When compared with ECG of 31-OCT-2021 14:27, No significant change was found Confirmed by ANNETTE BEAULIEU ([id number]) on 09/18/2022 7:17:25 PMWCOH STR Annette Nolan MD - 09/18/2022 Sinus tachycardia Left axis deviation Abnormal ECG When compared with ECG of 31-OCT-2021 14:27, No significant change was found Confirmed by ANNETTE BEAULIEU ([id number]) on 09/18/2022 7:17:25 PM [facility] [employer] Phone: Glomerular Filtration Rate, Estimatedon 09-18-2022 GFR/1.73 sq M.predicted MDRD (S/P/Bld) [Vol rate/Area]- PINFBON [facility] Clickst EarDishHeartland Behavioral Health Services on above:Pediatric calculator link https://www.kidney.org/professionals/kdoqi/gfr_calculatorped Effective Jun 22, 2022 [...] that affects renal tubular secretion. Performed at [facility] [address] [place] [address] No Panel Informationon [id number] [facility]ENTERTrackRHENRICO DOCTORS[facility] WARSTUFF TR[facility] HEALTH SYSTEMTroponinon 26-36-9576Ttldkqeb T< 0.010ng/mlTUFTS MEDICAL CENTERBeMyGuest EarDishHeartland Behavioral Health Services on above:<0.010 ng/ml Normal > or = 0.010 ng/ml [...] an acute or chronic condition. Performed at [facility] [address] [place] [address] XR CHEST PORTABLEon . Prominent interstitial markings within the lower lungs raising the possibility of an interstitial infiltrate or interstitial edema. 2. Linear focus of atelectasis within the left lower lung. This document has been electronically signed by: Izzy Espinoza MD on 09/18/2022 06:19 [facility] CONSOLIDATED1 view chest x-ray Comparison: CR/SR - XR CHEST PORTABLE - 10/31/2021 02:51 PM EST Findings: Prominence of interstitial markings within the bilateral lower lungs. Linear opacity within the left lower lung. No consolidative process. Borderline heart size. Tortuous aorta. Prior left-sided rotator cuff repair. No acute displaced fracture. [facility] Izzy Melton MD - 09/18/2022 1 view chest x-ray [...] Izzy Espinoza MD on 09/18/2022 06:19 PM [employer] Phone: radiology Study observation (narrative)[employer] Phone: xr CHEST PORTABLEOrdered By: Izzy Espinoza on [id number] Voci TechnologiesECHOCARDIO M/2D COMPLETEon 03-13-2020 ECHOCARDIO M/2D COMPLETEPatient: SANA STANLEY Exam Date: 03/13/2020 : 1955 Gender:M Ordering : DR PIYUSH KEANE . Admission #: [id number] Family : Order #: [id number] CLICK HERE TO VIEW EXAM ECHOCARDIOGRAM REPORT [...] Area(A4C): 16.80 cm2 Left Atrium Systolic Volume(A4C): 96137 mm3 Mitral Valve MV E to A [...] by: Syeda Monreal M.D. on 03/14/2020 at 13:54[facility] HospitalCT HIP RT WO CONon [id number] HIP RT WO CONEXAMINATION: CT HIP RT WO CON HISTORY: PAIN [...] Electronically authenticated by: SANAM GRUBBS Date: 2020-01-27 09:42[facility] HospitalACETONE SERUMon [id number]HOWKGUmr Doctors HospitalComment on above:Performed By: #### ACETON #### [facility] [address] [place] [address] She KarenCBC AUTO DIFFon 06-66-1923Jirdamucf (Bld) [#/Vol]0.0 103/ulNormal 0.0-0.1The Doctors HospitalComment on above:Performed By: #### CBC #### [facility] [address] [address] She KarenBasophils/100 WBC (Bld)0.2 %Normal0.2-2.0[facility] Comment on above:Performed By: #### CBC #### [facility] [address] [place], [place] [id number] She KarenEosinophils (Bld) [#/Vol]0.0 103/ulNormal0.0-0.7The [facility]Point Medical Centerment on above:Performed By: #### CBC #### [facility] [address] [place], [place] [id number] She KarenEosinophils/100 WBC (Bld)0.3 %Critically low0.9-7.0The Doctors HospitalComment on above:Performed By: #### CBC #### [facility] [address] [place] [address] She KarenErythrocyte distribution width (RBC) [Ratio]12.9 %Tfskkk00.0-15.0The Doctors HospitalComment on above:Performed By: #### CBC #### [facility] [address] [place] [address] She KarenHematocrit (Bld) [Volume fraction]45.3 %Lasscj27.0-54.0The Doctors HospitalComment on above:Performed By: #### CBC #### [facility] [address] [place] [address] She KarenHemoglobin (Bld) [Mass/Vol]15.1 g/wTHiqdub36.0-18.0[facility] on above:Performed By: #### CBC #### [facility] [address] [place] [address] She KarenIG #0.04 10e3/ulCritically high0.00-0.03[facility] on above:Performed By: #### CBC #### [facility] [address] [place] [address] She KarenIG %0.3 %Normal0.0-0.5The Doctors HospitalCommarshfield medical center on above: Performed By: #### CBC #### [facility] [address] [place] [address] She KarenLymphocytes (Bld) [#/Vol]1.3 103/ulNormal1.2-3.8The Joe HospitalComment on above:Performed By: #### CBC #### [facility] [address] [id number] She KarenLymphocytes/100 WBC (Bld)9.6 %Critically low20.5-60.0[facility] SystemComment on above:Performed By: #### CBC #### [facility] [address] [address] She KarenMANUAL DIFF REQNONormalThe Doctors HospitalComment on above: Performed By: #### CBC #### [facility] [address] [address] She KarenMCH (RBC) [Entitic mass]32.1 iuHrihee44.9-34.0[facility] Comment on above:Performed By: #### CBC #### [facility] [address] [place] [address] She KarenMCHC (RBC) [Mass/Vol]33.3 g/mBXbfatw69.9-35.2[facility] Comment on above:Performed By: #### CBC #### [facility] [address] [place] [address] She KarenMCV (RBC) [Entitic vol]96.2 fLCritically high80.0-94.0[facility] Hospitalment on above:Performed By: #### CBC #### [facility] [address] [place] [address] She KarenMonocytes (Bld) [#/Vol]0.5 103/ulNormal0.3-0.8ThHolmes County Joel Pomerene [facility] Comment on above:Performed By: #### CBC #### [facility] [address] [place], [place] [id number] She KarenMonocytes/100 WBC (Bld)3.7 %Normal1.7-12.0[facility] Comment on above:Performed By: #### CBC #### [facility] [address] [place] [address] She KarenNeutrophils (Bld) [#/Vol]11.8 103/ulCritically high1.4-6.5The Doctors HospitalComment on above:Performed By: #### CBC #### [facility] [address] [place], [place] [phone] She KarenNeutrophils/100 WBC (Bld)85.9 %Critically high43.0-75.0The Doctors HospitalComment on above:Performed By: #### CBC #### [facility] [address] [place] [address] She KarenPlatelet mean volume (Bld) [Entitic vol]9.1 fLCritically low9.5-13.5 The Doctors HospitalComment on above:Performed By: #### CBC #### [facility] [address] [place] [address] She KarenPlatelets (Bld) [#/Vol]175 103/jxDuiuzx530-752Qwh [facility] Comment on above:Performed By: #### CBC #### [facility] [address] [place] [address] She KarenRBC (Bld) [#/Vol]4.71 106/ulNormal4.70-6.10[facility] Comment on above:Performed By: #### CBC #### [facility] [address] [place] [address] She KarenWBC (Bld) [#/Vol]13.8 103/ulCritically high4.0-11.0The Doctors HospitalComment on above:Performed By: #### CBC #### [facility] [address] [place] [address] She KarenER URINE PROFILEon 74-51-9419Igwxmznoh [Mass/Vol]NegativeNormal NEGATIVEThe Doctors HospitalComment on above:Performed By: #### CBC #### [facility] [address] [place] [address] She KarenBLOODNegativeNormalNEGATIVEThe Doctors HospitalComment on above: Performed By: #### CBC #### [facility] [address] [place] [address] She KarenClarity (U)CLEARNormUpper Valley Medical Center HospitalComment on above: Performed By: #### CBC #### [facility] [address] [place] [address] She KarenColor (U)LT. YELLOWNormalYELLOWAvita Health SystemComment on above:Performed By: #### CBC #### [facility] [address] [place] [address] She KarenERUAHDA micrscopic examination will be performed if indicated.Normal The [facility] HospitalComment on above:Performed By: #### CBC #### [facility] [address] [place] [address] She KarenGlucose [Mass/Vol]NegativeNormalNEGATIVEAvita Health SystemComment on above:Performed By: #### CBC #### [facility] [address] [place] [address] She KarenKetones Ql (U)NegativeNormalNEGATIVEAvita Health SystemComment on above:Performed By: #### CBC #### [facility] [address] [place] [address] She KarenNitrite Ql (U)NegativeNormalNEGATIVEAvita Health SystemComment on above:Performed By: #### CBC #### [facility] [address] [place] [address] She KarenpH (Bld)6.8Onttcy4-0NpqBrown Memorial Hospitalment on above:Performed By: #### CBC #### [facility] [address] [place] [address] She KarenProtein (U) [Mass/Vol]NegativeNormUpper Valley Medical Center HospitalComment on above:Performed By: #### CBC #### [facility] [address] [place] [address] She KarenSPEC GRAVITY1.046Ihxtja9.005-<=1.025Av[facility] Health SystemComment on above:Performed By: #### CBC #### [facility] [address] [place] [address] She KarenUR MICRO INDNOT INDICATEDNormFostoria City HospitalComment on above:Performed By: #### CBC #### [facility] [address] [place] [address] She KarenUrobilinogen Qn (U)0.2 EU/dlNoMercy Health St. Elizabeth Boardman HospitalCommarshfield medical center on above:Performed By: #### CBC #### [facility] [address] [place] [address] She KarenWBC (Bld) [#/Vol]NegativeNormalNEGATIVEThe Doctors HospitalComment on above:Performed By: #### CBC #### [facility] [address] [place] [address] She KarenLACTATE/LACTIC ACIDon 32-35-7868Koeobll [Moles/Vol]1.5 mmol/LNormal 0.7-2.1[facility] on above:Performed By: #### LACT #### [facility] [address] [place] [address] She KarenPH VENOUS BLOODon 95-41-7726SFG2 BWSWJE32.8 mmHgCritically high 40.0-52.0The [facility] TriPoint Medical Centerment on above:Performed By: #### PHVEN #### [facility] [address] [place] [address] She KarenpH VENOUS7.30Critically low7.33-7.43[facility] on above:Performed By: #### PHVEN #### [facility] [address] [place] [address] She KarenPROCALCITONINon [id number] header 1SEE BELOWOhioHealth Hardin Memorial HospitalCommarshfield medical center on above:Result Comment: PCT <0.5ng/mL: Systemic infection (sepsis) is not likely, local bacterial infection possible, low risk for progression to severe systemic infection (severe sepsis)Performed By: #### PRL #### [facility] [address] [place] [address] She KarenPCT header 2SEE BELOWOhioHealth Hardin Memorial HospitalComment on above: Result Comment: PCT >/=0.5 and <2 ng/mL: Systemic infection (sepsis) is possible, moderate risk for progression to severe systemic infection (severe sepsis)Performed By: #### PRL #### [facility] [address] [place] [address] She KarenPCT header 3SEE Memorial HospitalCommarshfield medical center on above: Result Comment: PCT >/=2.0 and <10 ng/mL: Systemic infection (sepsis) is likely, unless othercauses are known, high risk for progession to severe systemic infection(severe sepsis)Performed By: #### PRL #### [facility] [address] [place] [address] She KarenPCT header 4SEE Memorial HospitalComment on above: Result Comment: PCT >/= 10 ng/mL: Important systemic inflammatory response almost exclusively due to severe bacterial sepsis or septic shock, high likelihood of severe sepsis or septic shockPerformed By: #### PRL #### [facility] [address] [place] [address] She KarenPROCALCITONIN<0.99Nibwlh5.00-0.50The Doctors HospitalComment on above:Performed By: #### PRL #### [facility] [address] [place] [address] She KarenPROF 14(COMP METB)on 82-00-3330Dnoqffj [Mass/Vol]3.6 g/dLNormal 3.5-5.0[facility] Health SystemComment on above:Performed By: #### CMP, TROP #### [facility] [address] [place] [address] She KarenAlbumin/Globulin [Mass ratio]1.1 {ratio}NormalAvita Health System Comment on above:Performed By: #### CMP, TROP #### [facility] [address] [place] [address] She KarenALP [Catalytic activity/Vol]107 U/XOtcrpc50-485UwyAvita Health System Comment on above:Performed By: #### CMP, TROP #### [facility] [address] [place] [address] She KarenALT [Catalytic activity/Vol]10 U/LCritically hin14-79Bag Doctors HospitalComment on above:Performed By: #### CMP, TROP #### [facility] [address] [place] [address] She KarenAnion gap [Moles/Vol]10.4 mmol/LNormalThe Doctors HospitalComment on above:Performed By: #### CMP, TROP #### [facility] [address] [address] She KarenAST [Catalytic activity/Vol]14 U/LCritically ktz22-36Fpt Doctors HospitalComment on above:Performed By: #### CMP, TROP #### [facility] [address] [place] [address] She KarenBilirubin Ql (U)0.4 mg/dLNormal0.2-1.3TOhioHealth Southeastern Medical CenterComment on above:Performed By: #### CMP, TROP #### [facility] [address] [place] [address] She KarenCalcium [Mass/Vol]9.0 mg/dLNormal8.4-10.2[facility] Comment on above:Performed By: #### CMP, TROP #### [facility] [address] [place] [address] She KarenChloride [Moles/Vol]105 mmol/MBzgtpm15-640HygAvita Health System Comment on above:Performed By: #### CMP, TROP #### [facility] [address] [place] [address] She KarenCO2 [Moles/Vol]27.4 mmol/CGmsdxr00.0-30.0[facility] Comment on above:Performed By: #### CMP, TROP #### [facility] [address] [place], [place] [id number] She KarenCreatinine [Mass/Vol]0.85 mg/dLNormal0.66-1.25[facility] Comment on above:Performed By: #### CMP, TROP #### [facility] [address] [place], [place] [id number] She KarenEGFR-AF TAJIK>60Normal>=60The [facility] HospitalComment on above: Performed By: #### CMP, TROP #### [facility] [address] [place] [address] She KarenEGFR-NON AF TAJIK>60Normal>=60The [facility] HospitalComment on above:Performed By: #### CMP, TROP #### [facility] [address] [place] [address] She KarenGlobulin (S) [Mass/Vol]3.4 g/dLNormalThe Doctors HospitalComment on above:Performed By: #### CMP, TROP #### [facility] [address] [place] [address] She KarenGlucose [Mass/Vol]105 mg/nPUfxcna40-892Sjl [facility] HospitalComment on above:Performed By: #### CMP, TROP #### [facility] [address] [place] [address] She KarenPotassium [Moles/Vol]3.8 mmol/LNormal3.4-5.0[facility] Comment on above:Performed By: #### CMP, TROP #### [facility] [address] [place] [address] She KarenProtein [Mass/Vol]7.0 g/dLNormal6.1-8.2The [facility] HospitalComment on above:Performed By: #### CMP, TROP #### [facility] [address] [place] [address] She KarenSodium [Moles/Vol]139 mmol/WDeadqf329-971Wjs [facility] Comment on above:Performed By: #### CMP, TROP #### [facility] [address] [place] [address] She KarenUrea nitrogen [Mass/Vol]9.0 mg/dLNormal9.0-20.0[facility] Comment on above:Performed By: #### CMP, TROP #### [facility] [address] [place] [address] She KarenUrea nitrogen/Creatinine [Mass ratio]10.6 mg/mgNormalThe [facility] HospitalComment on above:Performed By: #### CMP, TROP #### [facility] [address] [place] [address] She KarenPROTIMEon 30-04-2280YYG Coag (PPP) [Relative time]1.03 {INR}Normal The [facility] HospitalComment on above:Performed By: #### PT, PTT #### [facility] [address] [place] [address] She KarenPT Coag (PPP) [Time]PLEASE NOTE: NORMAL RANGE CHANGE 06-07-2014 DUE TO REAGENT LOT CHANGEOhioHealth Hardin Memorial HospitalComment on above:Performed By: #### PT, PTT #### [facility] [address] [place] [address] She KarenPT Coag (PPP) [Time]10.7 sNormal9.0-11.6The [facility] Centerment on above:Performed By: #### PT, PTT #### [facility] [address] [place] [address] She KarenPT Coag (PPP) [Time]SEE BELOWProMedica Fostoria Community Hospitalment on above:Result Comment: DESIRED INR: 2.0 - 3.0 CONDITIONS NOT LISTED BELOW 2.5 - 3.5 FOR PROSTHETIC HEART VALVE REPLACEMENT 2.5 - 3.5 RECURRENT THROMBOSIS Performed By: #### PT, PTT #### [facility] [address] [place] [address] She KarenPTTon 88-09-9153aQDL Coag (Bld) [Time]PLEASE NOTE: NORMAL RANGE CHANGE 08-14-2015 DUE TO REAGENT LOT CHANGEOhioHealth Hardin Memorial HospitalComment on above:Performed By: #### PT, PTT #### [facility] [address] [place] [address] She KarenaPTT Coag (Bld) [Time]23.2 zTqkwsw54.3-36.2[facility] Comment on above:Performed By: #### PT, PTT #### [facility] [address] [place] [address] She KarenTROPONIN - Ion 66-62-7754Wqkpiqsj I.cardiac [Mass/Vol]ng/mLNormal <=0.034[facility] SystemComment on above:Performed By: #### CMP, TROP #### [facility] [address] [place], [place] [address] She KarenTroponin I.cardiac [Mass/Vol]SEE BELOWOhioHealth Hardin Memorial Hospital Comment on above:Result Comment: <0.034 ng/ml NEGATIVE 0.034-0.119 INDETERMINATE 0.120 AMI CUT OFFPerformed By: #### CMP, TROP #### [facility] [address] [place], [place] [address] She KarenXR CHEST 2 Von 10-28-1292OP CHEST 2 VPatient: SANA STANLEY Exam Date: 06/16/2019 : 1955 Gender:M Ordering : VIRGINIE RACHEL Admission #: [id number] Family : DR. SARAH BETANCOURT M.D. Order #: [id number] CLICK HERE TO VIEW EXAM RADIOLOGY REPORT [...] Luis Manuel Barros M.D. on 06/16/2019 at 20:18[facility] Vital Signs Date TimeVital SignValuePerforming ZehrmhdzoWibxbswu72-34-4026 17:140Body mass index (BMI) [Ratio]33.83 kg/m7Ejjzod Furlong DO Work Phone: [facility] Hejlpx53-15-8539 17:14-0400Body mlyhkiazlvy41.29 [degF]Fabien Stanleyng DO Work Phone: [facility]10-17-2025 17:14-0400Body jozial49.98 kgDenbenny Stanleyng DO Work Phone: [facility] Stvvel05-40-9208 17:14-0400Diastolic blood fxkyvetx86 mm[Hg]Fabien Spencelong DO Work Phone: [facility] Jmttcp03-78-6378 17:14-0400Heart rate 60 /minDaugustinais Bebelong DO Work Phone: [facility] Zgjurl36-39-3659 17:14-0400 Respiratory rate16 /minDaugustinais Bebelong DO Work Phone: [facility] Scrwfs30-93-8725 17:14-9909YoP7% (BldA) [Mass fraction]97 %Fabienbenny Stanleyng DO Work Phone: [facility] Knacgh89-40-4833 17:14-0400Systolic blood mm[Hg]Fabien Spencelong DO Work Phone: [facility] Dsynzf45-99-9817 15:06-0400Body mass index (BMI) [Ratio]32.73 kg/t4Qslbvk Furlong DO Work Phone: [facility] Cvblph45-57-4744 15:06-0400Body mhqrqfatltj72.81 [degF]Fabien Stanleyng DO Work Phone: [facility] Yfonat87-95-7707 15:06-0400Body .8 kgDenbenny Stanleyng DO Work Phone: [facility] Fxjzsk38-26-7475 15:06-0400Diastolic blood tamcvafd94 mm[Hg]Fabien Stanleyng DO Work Phone: [facility] Subaka21-19-6702 15:06-0400Heart rate 57 /Cherieis Bebelong DO Work Phone: [facility] Roradr83-77-8753 15:06-0400 Respiratory rate20 /minDaugustinais Bebelong DO Work Phone: [facility] Untxhm83-44-0561 15:06-5593VqY4% (BldA) [Mass fraction]94 %Fabien Spencelong DO Work Phone: [facility] Vyfncm34-97-3343 15:06-0400Systolic blood snxqcpyw376 mm[Hg]Fabien Spencelong DO Work Phone: [facility] Yyltzq18-85-4519 15:50-0400Body mass index (BMI) [Ratio]32.42 kg/u9MkurnwFabien Spencelong DO Work Phone: [facility] Rebjkm45-88-6607 15:50-0400Body fiuzhuzfgem80.81 [degF]Fabien Stanleyng DO Work Phone: [facility] Vawqdc78-34-5288 15:50-0400Body edmoxl73.89 kgFabien Stanleyng DO Work Phone: [facility] Sdetye49-07-0138 15:50-0400Diastolic blood lmdopzyj88 mm[Hg]Fabien Stanleyng DO Work Phone: [facility] Dyvjkv62-40-9790 15:50-0400Heart rate 92 /Cherieis Bebelong DO Work Phone: [facility] Ryfcck48-30-7094 15:50-0400 Respiratory rate18 /minDaugustinais Bebelong DO Work Phone: [facility] Ayuorz62-29-0513 15:50-3490YoG5% (BldA) [Mass fraction]94 %Fabien Stanleyng DO Work Phone: [facility] Fwoenb41-25-3066 15:50-0400Systolic blood vefunoga760 mm[Hg]Fabien Stanleyng DO Work Phone: [facility] Blyvsm87-53-6132 13:51-0400Body mass index (BMI) [Ratio]32.17 kg/o9Mxbokq Furlong DO Work Phone: [facility]07-22-2025 13:51-0400Body owithzmswji41.1 [degF]Fabien Spencelong DO Work Phone: [facility]07-22-2025 13:51-0400Body wsujly35.17 kgDennis Bebelong DO Work Phone: [facility] Lqahip29-34-0991 13:51-0400Diastolic blood xahtgscq79 mm[Hg]Fabien Spencelong DO Work Phone: [facility] Aqrvak51-73-9585 13:51-0400Heart rate 70 /Cherieis Bebelong DO Work Phone: [facility]07-22-2025 13:51-0400 Respiratory rate18 /minDaugustinais Bebelong DO Work Phone: [facility] Vqjyjd08-97-9369 13:51-9798CnX8% (BldA) [Mass fraction]97 %Fabien Spencelong DO Work Phone: [facility] Poqvdq53-99-1887 13:51-0400Systolic blood vlvomhcc275 mm[Hg]Fabien Stanleyng DO Work Phone: [facility] TweetUpLcoage76-58-7274 15:30-0400Body mass index (BMI) [Ratio]31.42 kg/z4VvteemFabien Spencelong DO Work Phone: [facility]06-20-2025 15:30-0400Body dvnfnkvqizl79.2 [degF]Fabien Spencelong DO Work Phone: [facility] Kauysw51-67-0974 15:30-0400Body nuvnjc92.99 kgDenbenny Spencelong DO Work Phone: [facility]06-20-2025 15:30-0400Diastolic blood yphspnbv40 mm[Hg]Fabien Furlong DO Work Phone: [facility] Insebl27-35-4620 15:30-0400Heart rate 82 /minDennis Furlong DO Work Phone: [facility] Yrwgfq00-15-4839 15:30-0400 Respiratory rate18 /minDennis Furlong DO Work Phone: [facility] Xmcdkc49-01-4834 15:30-1220LkW8% (BldA) [Mass fraction]97 %Fabien Furlong DO Work Phone: [facility] Vzsfyu63-96-9614 15:30-0400Systolic blood ryghdsjg950 mm[Hg]Fabien Spencelong DO Work Phone: [facility] Enyddf03-85-8490 15:41-0400Body ugbpmqflquv43.7 [degF]Fabien Furlong DO Work Phone: [facility] Vljgym42-91-0207 15:41-0400Diastolic blood pzuafmwz28 mm[Hg]Fabien Furlong DO Work Phone: [facility] Wvcrsl26-92-4872 15:41-0400Heart rate 86 /Cherieis Bebelong DO Work Phone: [facility] Dzodln59-44-2670 15:41-0400 Respiratory rate20 /minDaugustinais Furlong DO Work Phone: [facility] Htcctq44-19-5928 15:41-7698CuW9% (BldA) [Mass fraction]91 %Fabien Furlong DO Work Phone: [facility] Agbgps89-48-8480 15:41-0400Systolic blood qbvtimcd828 mm[Hg]Fabien Spencelong DO Work Phone: [facility] Fznfdk20-47-4357 15:48-0400Body mass index (BMI) [Ratio]31.29 kg/t0Tjctkn Furlong DO Work Phone: [facility] Orafeu35-11-4002 15:48-0400Body yulesygeiwc30.6 [degF]Fabien Macias DO Work Phone: [facility] Bagkvp91-06-8810 15:48-0400Body xfcoat39.63 kgFabien Macias DO Work Phone: [facility] Gczsry85-64-4280 15:48-0400Diastolic blood meoqkkjg16 mm[Hg]Fabien Stanleyng DO Work Phone: [facility] Ntlabk66-83-9392 15:48-0400Heart rate 82 /Rut Stanleyng DO Work Phone: [facility] Ftqjda86-46-0580 15:48-9464HgR6% (BldA) [Mass fraction]94 %Fabien Stanleyng DO Work Phone: [facility] Eogsti09-48-8746 15:48-0400Systolic blood ssuyspvb162 mm[Hg]Fabien Stanleyng DO Work Phone: [facility] Umleit01-73-2216 14:59-0500Diastolic blood mm[Hg]Fabien Stanleyng DO Work Phone: [facility] Nvfdcj88-34-5261 14:59-0500Heart rate 110 /Rut Macias DO Work Phone: [facility] Rmqiru46-33-8985 14:59-5909QyM6% (BldA) [Mass fraction]98 %Fabien Spencelong DO Work Phone: [facility] Ugtdrf18-93-7333 14:59-0500Systolic blood vgjwcbmu461 mm[Hg]Fabien Stanleyng DO Work Phone: [facility] Disaox07-04-0799 17:17-0500Diastolic blood bzxampuj75 mm[Hg]Fabien Stanleyng DO Work Phone: [facility]02-11-2025 17:17-0500Heart rate 92 /minDennis Furlong DO Work Phone: [phone] Xczfok36-55-5013 17:17-9071LtQ9% (BldA) [Mass fraction]90 %Fabien Furlong DO Work Phone: [phone] Orrbui72-66-8463 17:17-0500Systolic blood whzvrbqu923 mm[Hg]Fabien Furlong DO Work Phone: [facility] Zakqwq68-03-9417 14:28-0500Body mass index (BMI) [Ratio]31.17 kg/r6LhurouFabien Spencelong DO Work Phone: [facility] Kctfjj07-96-7614 14:28-0500Body eboghx08.27 kgDenbenny Spencelong DO Work Phone: [facility] Thynqg76-22-9166 14:28-0500Diastolic blood ulxaconk75 mm[Hg]Fabien Spencelong DO Work Phone: [phone] Xdxrco89-34-6807 14:28-0500Heart rate 81 /Cherieis Bebelong DO Work Phone: [facility] Ttzjak27-77-5762 14:28-9042RoG7% (BldA) [Mass fraction]95 %Fabien Furlong DO Work Phone: [phone] Kvetsv69-13-7429 14:28-0500Systolic blood qlosmkeo569 mm[Hg]Fabien Bebelong DO Work Phone: [phone] Ybhhid62-90-5411 21:26-0500Body xvydqydbobb41.7 [degF]Fabien Bebelong DO Work Phone: [facility] Ecmlfk94-19-2238 21:26-0500Diastolic blood kynaiwfz71 mm[Hg]Fabien Furlong DO Work Phone: [facility] Krjikv06-16-2949 21:26-0500Heart rate 72 /minDennis Furlong DO Work Phone: [facility] Ryeozp21-58-3321 21:26-0500 Respiratory rate18 /minDennis Furlong DO Work Phone: [facility] Qcovgs32-56-9487 21:26-9324HlT3% (BldA) [Mass fraction]94 %Fabien Furlong DO Work Phone: [facility] Eymfkd24-09-8569 21:26-0500Systolic blood oemicbhk150 mm[Hg]Fabien Furlong DO Work Phone: [facility] Vxwrox82-96-6363 15:48-0500Body tavgabavntn80.59 [degF]Fabien Furlong DO Work Phone: [facility] Ioyuen91-56-4283 15:48-0500Diastolic blood dkfudwdi11 mm[Hg]Fabien Furlong DO Work Phone: [facility] Wthgqz42-65-3569 15:48-0500Heart rate 77 /Cherieis Furlong DO Work Phone: [facility] Jqnqhm77-96-6438 15:48-0500 Respiratory rate20 /Cherieis Furlong DO Work Phone: [facility] Bzsdnr60-60-6289 15:48-9796VwD7% (BldA) [Mass fraction]97 %Fabien Furlong DO Work Phone: [facility] Twpbzg83-18-3311 15:48-0500Systolic blood lbtieyxh808 mm[Hg]Fabien Furlong DO Work Phone: [facility] Cegmjl61-36-9595 16:44-0500Body .29 [degF]Fabienbenny Spencelong DO Work Phone: [facility] Ybrglj69-63-9833 16:44-0500Diastolic blood mzltgalr25 mm[Hg]Fabien Furlong DO Work Phone: [facility] Esvcqt31-45-6007 16:44-0500Heart rate 82 /minDaugustinais Furlong DO Work Phone: [facility] Jmiijz61-62-6464 16:44-0500 Respiratory rate20 /Cherieis Bebelong DO Work Phone: [facility] Vyyowq46-48-7420 16:44-4605PcA2% (BldA) [Mass fraction]98 %Fabien Furlong DO Work Phone: [facility] Ymorjp84-32-7865 16:44-0500Systolic blood amprwcug124 mm[Hg]Fabien Spencelong DO Work Phone: [facility] Pzitnl45-96-7741 15:42-0500Body mass index (BMI) [Ratio]31.51 kg/z7Roydeg Furlong DO Work Phone: [facility] Jsgguk08-37-6162 15:42-0500Body soukmo97.26 kgDenbenny Spencelong DO Work Phone: [facility] Fjwwda37-54-2314 15:42-0500Diastolic blood ulzzzvby88 mm[Hg]Fabien Spencelong DO Work Phone: [facility] Rokixi62-09-6551 15:42-0500Heart rate 88 /Cherieis Bebelong DO Work Phone: [facility] Yssbef40-37-9283 15:42-0500Systolic blood atbqhvis881 mm[Hg]Fabien Furlong DO Work Phone: [facility] Fynkyk55-22-9383 13:42-0500Diastolic blood mm[Hg]Fabien Spencelong DO Work Phone: [facility] Cdgrgi00-03-4926 13:42-0500Heart rate 60 /minDaugustinais Bebelong DO Work Phone: [facility] Nsoeqb48-62-5934 13:42-0500Systolic blood onztvmik981 mm[Hg]Fabien Furlong DO Work Phone: [facility] Biuxtb34-66-3739 16:09-0400Diastolic blood coczdqum17 mm[Hg]Fabien Furlong DO Work Phone: [facility] Qducwu65-03-4138 16:09-0400Heart rate 76 /minDennis Furlong DO Work Phone: [facility] Hxvwrs87-89-0377 16:09-0400Systolic blood ymkxijex544 mm[Hg]Fabien Furlong DO Work Phone: [facility] Bhdgxq18-86-1568 11:53-0400Body mass index (BMI) [Ratio]30.6 kg/n9Ynsptt Furlong DO Work Phone: [facility] Duhfmi50-09-2016 11:53-0400Body uhmclr91.63 kgDennis Furlong DO Work Phone: [facility] Zatwui29-67-9039 11:53-0400Diastolic blood vvswacms09 mm[Hg]Fabien Furlong DO Work Phone: [facility] Vvsixo16-35-0586 11:53-0400Heart rate 82 /minDennis Furlong DO Work Phone: [facility] Bboovg58-08-9234 11:53-0400Systolic blood znvkribs075 mm[Hg]Fabien Furlong DO Work Phone: [facility] Ygxami13-34-8243 22:24-0400Body uhswqzknwkw89.5 [degF]Fabien Furlong DO Work Phone: [facility] Eyddkw70-97-8279 22:24-0400Diastolic blood rxsllvaj30 mm[Hg]Fabien Furlong DO Work Phone: [facility] Vrmfoc80-38-9855 22:24-0400Heart rate 82 /minDaugustinais Furlong DO Work Phone: [facility]10-04-2024 22:24-0400 Respiratory rate18 /minDaugustinais Bebelong DO Work Phone: [facility] Jsedlc30-46-3781 22:24-4117UfC4% (BldA) [Mass fraction]94 %Fabien Spencelong DO Work Phone: [facility]10-04-2024 22:24-0400Systolic blood mm[Hg]Fabien Spencelong DO Work Phone: [facility]09-20-2024 16:32-0400Body mass index (BMI) [Ratio]29.95 kg/u7RhftdtFabien Spencelong DO Work Phone: [facility]09-20-2024 16:32-0400Body kgjubhjzhgq41.2 [degF]Fabien Spencelong DO Work Phone: [facility]09-20-2024 16:32-0400Body yrvyra58.73 kgFabien Spencelong DO Work Phone: [facility] Dobshl08-94-2506 16:32-0400Diastolic blood sgovdjri12 mm[Hg]Fabien Spencelong DO Work Phone: [facility]09-20-2024 16:32-0400Heart rate 92 /Cherieis Bebelong DO Work Phone: [facility]09-20-2024 16:32-0400 Respiratory rate18 /Cherieis Bebelong DO Work Phone: [facility] Vhuowf16-01-2232 16:32-1964YzG8% (BldA) [Mass fraction]93 %Fabien Spencelong DO Work Phone: [facility]09-20-2024 16:32-0400Systolic blood ephstehd459 mm[Hg]Fabien Macias DO Work Phone: [facility]05-18-2024 19:36-0400Diastolic blood mm[Hg]Suzanne Chan MD Work Phone: [facility]05-18-2024 19:36-0400Heart rate72 /Shalini Chan MD Work Phone: [facility]05-18-2024 19:36-0400 Respiratory rate21 /Shalini Chan MD Work Phone: [facility]05-18-2024 19:36-6852ZmI6% (BldA) [Mass fraction]92 %Suzanne Chan MD Work Phone: [facility]05-18-2024 19:36-0400Systolic blood bvgmzeyp609 mm[Hg]Suzanne Chan MD Work Phone: [facility]05-18-2024 15:42-0400Body injyxk858.6 Lizandro Chan MD Work Phone: [facility]05-18-2024 15:42-0400Body mass index (BMI) [Ratio]29.05 kg/f5BmcbxSuzanne Chan MD Work Phone: [facility]05-18-2024 15:42-0400Body bjwifqqlwiy22.01 [degF]Suzanne Chan MD Work Phone: [facility]05-18-2024 15:42-0400Body vlphfi83.65 kgSuzanne Chan MD Work Phone: [facility]09-26-2023 09:41-0400Body woqbdzccrfl79.44 [degF][facility] Other Phone: 1(242) 775-785509-26-2023 09:41-0400Body uxcucmdpkry30.6 [degF][facility] Other Phone: 1(568) 969-669209-26-2023 09:41-0400Diastolic blood htpiphkx48 mm[Hg][facility] Other Phone: 1(104) 585-737909-26-2023 09:41-0400Heart rate65 /[facility] Other Phone: 1(737) 397-844809-26-2023 09:41-0400Respiratory rate20 /[facility] Other Phone: 1(961) 649-895209-26-2023 09:41-1964MwR7% (BldA) [Mass fraction]95 % [facility] Other Phone: 1(373) 290-453109-26-2023 09:41-0400Systolic blood pvymzyae241 mm[Hg][facility] Other Phone: 1(167) 628-969209-24-2023 02:37-0400Body rmmszu64.7 cmPaul [facility] Other Phone: 1(768) 727-675309-24-2023 02:37-0400Body surface area Derived from formula2.02 m2[facility] Other Phone: 1(648) 655-465809-24-2023 02:37-0400Body gykdbk26.1 kg[facility] Other Phone: 1(346) 763-789609-24-2023 02:37-0400Body nntodf26.07 kg[facility] Other Phone: 1(531) 731-535509-23-2023 14:28-0400Diastolic blood sboupbvl63 mm[Hg]Matt Caldwell MD Work Phone: [facility]ajnnk27-64-2976 14:28-0400Systolic blood mytsrszo975 mm[Hg]Matt Caldwell MD Work Phone: [facility] CenterWzkzde22-53-8395 14:27-0400Body mass index (BMI) [Ratio]34.22 kg/v2TmvcfoMatt Caldwell MD Work Phone: [facility] CenterVjsyzg35-32-4062 14:27-0400Body kxalic63.11 kgMatt Caldwell MD Work Phone: [facility] LaGoonWngngg63-38-3094 14:26-0400Body temperature 99.19 [degF]Matt Caldwell MD Work Phone: [facility] LaGoonQhdsmg07-86-6801 14:26-0400Heart rate91 /min Matt Caldwell MD Work Phone: [place] Lbtrmo15-95-3001 14:26-0400Respiratory rate18 /minMatt Caldwell MD Work Phone: [place] Pwpjus18-03-1477 14:26-9142OdC3% (BldA) [Mass fraction]94 %Matt Caldwell MD Work Phone: [place] Zdbydu52-94-0425 13:04-0400Diastolic blood bsfzdaxi71 mm[Hg]Rj Nicolas DO Work Phone: [facility] [employer]09-22-2023 13:04-0400Heart rate86 /minSmagdi Nicolas DO Work Phone: [facility] [employer]09-22-2023 13:04-0400 Respiratory rate18 /minSeth Maria Isabel DO Work Phone: [facility] [employer]09-22-2023 13:04-0400Systolic blood edlfidvf577 mm[Hg]Rj Nicolas DO Work Phone: [facility] [employer]09-22-2023 11:32-7858EtO4% (BldA) [Mass fraction]95 %Rjhay Nicolas DO Work Phone: [facility] [employer]09-22-2023 11:31-0400Body .2 cmSmagdi Nicolas DO Work Phone: [facility] [employer]09-22-2023 11:31-0400Body mass index (BMI) [Ratio]33.52 kg/m2Set Maria Isabel DO Work Phone: [facility] [employer]09-22-2023 11:31-0400Body saqibxvueaf68.9 [degF]Rj Nicolas DO Work Phone: [phone] [employer]09-22-2023 11:31-0400Body kiumox44.07 kgSeth Maria Isabel DO Work Phone: [phone] [employer]06-07-2023 21:00-0400Diastolic blood ivnutrqf58 mm[Hg]Wallace Garcia DO Work Phone: [phone] [employer]06-07-2023 21:00-0400Heart rate82 /minWallace Jose DO Work Phone: [phone] [employer]06-07-2023 21:00-0400 Respiratory rate16 /minWallace Jose DO Work Phone: [phone] [employer]06-07-2023 21:00-2238OkH9% (BldA) [Mass fraction]97 %Wallace Garcia DO Work Phone: [phone] [employer]06-07-2023 21:00-0400Systolic blood mm[Hg]Wallace Garcia DO Work Phone: [phone] [employer]06-07-2023 15:39-0400Body frgesl931.2 cmWallace Garcia DO Work Phone: [phone] [employer]06-07-2023 15:39-0400Body mass index (BMI) [Ratio]32.11 kg/m2Wallace Garcia DO Work Phone: [phone] [employer]06-07-2023 15:39-0400Body umrbkmynpvr39.9 [degF]Wallace Garcia DO Work Phone: [phone] [employer]06-07-2023 15:39-0400Body cknioq06.99 kgWallace Garcia DO Work Phone: [phone] [employer]06-02-2023 23:30-0400Diastolic blood gtqvusqk52 mm[Hg]Francisco J Cole MD Work Phone: [phone])9023[facility] [employer]06-02-2023 23:30-0400Heart rate81 /Gildardo Cole MD Work Phone: [facility] [id number] 23:30-0400 Respiratory rate18 /Gildardo Cole MD Work Phone: [phone]06-02-2023 23:30-6225HxC5% (BldA) [Mass fraction]93 %Francisco J Cole MD Work Phone: [phone]06-02-2023 23:30-0400Systolic blood tddjlqzu661 mm[Hg]Francisco J Cole MD Work Phone: [phone] [id number] 16:23-0400Body ondknt340.2 Ramesh Cole MD Work Phone: [facility]06-02-2023 16:23-0400Body mass index (BMI) [Ratio]32.11 kg/m2Francisco J Cole MD Work Phone: [phone]06-02-2023 16:23-0400Body erfegforltk07.7 [degF]Francisco J Cole MD Work Phone: [phone] [facility]PITAL06-02-2023 16:23-0400Body eikejs26.99 kgFrancisco J Cole MD Work Phone: [facility] LBMKVU32-24-0163 12:52-0500Diastolic blood gsakezmj599 mm[Hg]Erick Simpson MD Work Phone: [facility]vel[facility] [id number] 12:52-0500Heart rate98 /minSampath Calvin SILVERMAN Work Phone: [facility] QEUEXJ45-78-5103 12:52-0500 Respiratory rate18 /minSampath Calvin SILVERMAN Work Phone: [facility]No[facility] IYFGXV28-04-0756 12:52-9581KiO5% (BldA) [Mass fraction]95 %Erick Simpson MD Work Phone: [facility]ENTERTrackR01-25-2023 12:52-0500Systolic blood puofhjlm916 mm[Hg]Erick Simpson MD Work Phone: [facility]ENTERNoveltyLab [facility]FixyaMEYLXA56-25-7770 12:17-0500Body fadxgm951.2 cmSted Simpson MD Work Phone: [phone]ENTERNoveltyLab [facility]ICFixyaOUJUCR24-66-8704 12:17-0500Body mass index (BMI) [Ratio]36.81 kg/q6CvdurerErick Simpson MD Work Phone: [phone]ENTERNoveltyLab [facility]ICFixyaYSCJIY38-26-4881 12:17-0500Body orersecjjdr10.9 [degF]Erick Simpson MD Work Phone: [phone]ENTERNoveltyLab [facility]ICFixyaJSDGPX66-38-1193 12:17-0500Body .59 kgErick Simpson MD Work Phone: [phone]ENTERTrackR01-04-2023 14:04-0500Body onjngyhrlpy10.49 [degF]Hillary Parrish MD Work Phone: [facility]ENTERTrackR01-04-2023 14:04-0500Diastolic blood daylmdgy87 mm[Hg]Hillary Parrish MD Work Phone: [facility] [employer]01-04-2023 14:04-0500Heart vsfr045 /Cory Parrish MD Work Phone: [phone]ENTERTrackR01-04-2023 14:04-0500 Respiratory rate25 /Cory Parrish MD Work Phone: [facility] [employer]01-04-2023 14:04-6768VkS5% (BldA) [Mass fraction]94 %Hillary Parrish MD Work Phone: [facility] [employer]01-04-2023 14:04-0500Systolic blood krtiryip360 mm[Hg]Hillary Parrish MD Work Phone: [facility] [employer]12-30-2022 23:00-0500Body ytnovj661.2 cmHillary Parrish MD Work Phone: [facility] RFADCH13-71-5974 23:00-0500Body mass index (BMI) [Ratio]36.81 kg/e2DzlhohgmHillary Parrish MD Work Phone: [facility] JVFEHX71-60-2953 23:00-0500Body vimdyz541.59 kgDarobbin Parrish MD Work Phone: [facility] JNFAKF21-62-0854 17:32-0400Body youhfvgadgg50.2 [degF]Miguel Kessler MD Work Phone: [place] [employer] LaGoonFjvbgv99-94-5381 17:32-0400Body rqjihq50.36 kgMiguel Kessler MD Work Phone: [phone] LaGoonWgqhrs39-77-9614 17:32-0400Diastolic blood mtlyljfe67 mm[Hg]Miguel Kessler MD Work Phone: [phone] LaGoonFqfdmv38-40-5307 17:32-0400Heart rate88 /min Miguel Kessler MD Work Phone: [phone]-[place] LaGoonAnxutd70-33-4519 17:32-5733LfQ2% (BldA) [Mass fraction]96 %Miguel Kessler MD Work Phone: [place] LaGoonInhaki75-03-8717 17:32-0400Systolic blood edqbaljh553 mm[Hg]Miguel Kessler MD Work Phone: [phone] Encounters Encounter DateEncounter TypeCare ProviderFacilityStart: 07-06-2025 End: 78-38-1300mloxavzkevEhgyvaGeorgiana Macias DO Work Phone: [facility] - Family MedicineComment on above:Essential hypertension (Primary Dx); Parkinson's disease, unspecified whether dyskinesia present, unspecified whether manifestations fluctuate ([facility]-HCC); Infected sebaceous cyst; Right leg weakness; Chronic obstructive pulmonary disease, unspecified COPD type ([facility]-HCC)Start: 06-01-2025 End: 35-88-9195sdhpwzygdlWmtjuz G Furlong DO Work Phone: [facility] Hospitaltart: 06-01-2025 End: 12-61-2146Ildnbnucu therapyFabien Macias DO Work Phone: [facility] - Family [facility] HospitalComment on above:Wernicke's encephalopathy (Primary Dx); Chronic obstructive pulmonary disease, unspecified COPD type (CMS-HCC); Protein-calorie malnutrition, unspecified severityStart: 04-20-2025 End: 46-34-0686Mmbggkzcfh Joey Macias DO Work Phone: [facility] HospitalComment on above:Wernicke's encephalopathy (Primary Dx); Cognitive impairment; Schizoaffective disorder, unspecified type ([facility]-HCC); Parkinson's disease, unspecified whether dyskinesia present, unspecified whether manifestations fluctuate ([facility]-HCC); Chronic obstructive pulmonary disease, unspecified COPD type ([facility]-HCC)Start: 04-10-2025 End: 83-37-7199bimplfvcumYsimyy G Furlong DO Work Phone: [facility] - [facility] HospitalComment on above:Wernicke's encephalopathy (Primary Dx); Parkinson's disease, unspecified whether dyskinesia present, unspecified whether manifestations fluctuate ([facility]-HCC); Chronic obstructive pulmonary disease, unspecified COPD type ([facility]-HCC)Start: 03-09-2025 End: 29-96-8802epiraxwaufOecjbr G Furlong DO Work Phone: [facility] - Family [facility] HospitalComment on above:Chronic obstructive pulmonary disease, unspecified COPD type ([facility]-HCC) (Primary Dx); Wernicke's encephalopathy; Parkinson's disease, unspecified whether dyskinesia present, unspecified whether manifestations fluctuate ([facility]-HCC)Start: 01-10-2025 End: 62-48-2015Dnafpsypyb Joey Macias DO Work Phone: [facility] Medicine - Family MedicineComment on above:Parkinson's disease, unspecified whether dyskinesia present, unspecified whether manifestations fluctuate (CMS-HCC) (Primary Dx); Chronic obstructive pulmonary disease, unspecified COPD type (CMS-HCC); Wernicke's encephalopathy; Schizoaffective disorder, unspecified type (CMS-HCC)Start: 12-07-2024 End: 65-71-5539Gtoyzerjbo CareFabien Macias DO Work Phone: [facility] - [facility] HospitalComment on above:Wernicke's encephalopathy (Primary Dx); Extrapyramidal and movement disorder, unspecified; Stage 2 chronic kidney disease due to benign hypertension; Schizoaffective disorder, unspecified type (CMS-HCC)Start: 11-07-2024 End: 46-44-7396ynnhianwpnQronqs G Furlong DO Work Phone: [facility] Internal [facility] MedicineStart: 11-07-2024 End: 25-61-0298Tuboxdkwq therapyDennis Dhara Stanleyng DO Work Phone: [facility] - [facility] HospitalComment on above:Chronic obstructive pulmonary disease, unspecified COPD type (CMS-HCC) (Primary Dx); Protein-calorie malnutrition, unspecified severity (CMS-HCC); Parkinson's disease, unspecified whether dyskinesia present, unspecified whether manifestations fluctuate (CMS-HCC); Mild cognitive impairmentStart: 10-31-2024 End: 40-18-4027xmogyeiqjtNlicyo G Furlong DO Work Phone: [facility] Internal [facility] MedicineStart: 10-31-2024 End: 11-19-1790Spqmxqojk therapyDennis Dhara Stanleyng DO Work Phone: [facility] Internal Medicine [facility] HospitalComment on above:Parkinson's disease, unspecified whether dyskinesia present, unspecified whether manifestations fluctuate (CMS-HCC) (Primary Dx); Wernicke's encephalopathy; Mild cognitive impairment; Chronic obstructive pulmonary disease, unspecified COPD type (CMS-HCC); Protein-calorie malnutrition, unspecified severity (CMS-HCC)Start: 10-27-2024 End: 86-19-1966lipyixqqnsEldbfi G Furlong DO Work Phone: [facility] Internal Medicine - Family MedicineComment on above:Wernicke's encephalopathy (Primary Dx); Chronic obstructive pulmonary disease, unspecified COPD type (CMS-HCC); Parkinson's disease, unspecified whether dyskinesia present, unspecified whether manifestations fluctuate (CMS-HCC)Start: 10-17-2024 End: 65-41-0096Peyvriphkt Joey Macias DO Work Phone: [facility] Medicine - Family MedicineComment on above:Parkinson's disease, unspecified whether dyskinesia present, unspecified whether manifestations fluctuate (CMS-HCC) (Primary Dx); Wernicke's encephalopathy; Chronic obstructive pulmonary disease, unspecified COPD type (CMS-HCC); Extrapyramidal and movement disorder, unspecifiedStart: 10-10-2024 End: 82-63-0732Osfowwvrjq Joey Macias DO Work Phone: [facility] Medicine - Family MedicineComment on above:Parkinson's disease, unspecified whether dyskinesia present, unspecified whether manifestations fluctuate (CMS-HCC) (Primary Dx); Schizoaffective disorder, unspecified type (CMS-HCC); Wernicke's encephalopathy; Chronic obstructive pulmonary disease, unspecified COPD type (CMS-HCC)Start: 10-03-2024 End: 97-27-5673cqdaxrseceDovtap G Furlong DO Work Phone: [facility] Medicine - Family MedicineComment on above:Chronic obstructive pulmonary disease, unspecified COPD type (CMS-HCC) (Primary Dx); Parkinson's disease, unspecified whether dyskinesia present, unspecified whether manifestations fluctuate (CMS-HCC); Mild cognitive impairment; Wernicke's encephalopathyStart: 09-24-2024 End: 48-77-6380ismzqkrlveCguhCleveland Clinic [facility] Work Phone: Start: 09-24-2024 End: 62-88-1178WohkivpyVeterans Affairs Medical Center Work Phone: [facility] Path Spec Joe HospStart: 08-11-2024 End: 73-34-2099opyojamlwePnuyoh G Furlong DO Work Phone: [facility] - Family MedicineComment on above:Wernicke's encephalopathy (Primary Dx); Parkinson's disease, unspecified whether dyskinesia present, unspecified whether manifestations fluctuate (CMS-HCC); Chronic obstructive pulmonary disease, unspecified COPD type (CMS-HCC); Stage 2 chronic kidney disease due to benign hypertensionStart: 07-11-2024 End: 46-11-8646Gcdydlzeiv Joey Stanleyng DO Work Phone: [facility] Medicine - Family MedicineComment on above:Parkinson's disease, unspecified whether dyskinesia present, unspecified whether manifestations fluctuate (CMS-HCC) (Primary Dx); Mild cognitive impairment; Schizoaffective disorder, unspecified type (CMS-HCC); Wernicke's encephalopathyStart: 82-28-3813nukretagtaUVVLNewark Hospitaltart: 07-04-2024 End: 12-79-8642Mrqvtufwtl CareFabien Spencelong DO Work Phone: [facility] - Family MedicineComment on above:Wernicke's encephalopathy (Primary Dx); Extrapyramidal and movement disorder, unspecified; Parkinson's disease, unspecified whether dyskinesia present, unspecified whether manifestations fluctuate (CMS-HCC)Start: 06-27-2024 End: 15-70-8122onspoisrxcEjzysg G Furlong DO Work Phone: [facility] - Family MedicineComment on above:Wernicke's encephalopathy (Primary Dx); Parkinson's disease, unspecified whether dyskinesia present, unspecified whether manifestations fluctuate ([facility]-HCC); BPH with lower urinary tract symptoms without urinary obstructionStart: 06-23-2024 End: 62-49-0607gxpzealvmjZscosd Dhara Spencelong DO Work Phone: [facility] - Family MedicineComment on above:Wernicke's encephalopathy (Primary Dx); Chronic obstructive pulmonary disease, unspecified COPD type (CMS-HCC); Parkinson's disease, unspecified whether dyskinesia present, unspecified whether manifestations fluctuate (CMS-HCC); Stage 2 chronic kidney disease due to benign hypertension; Mild cognitive impairmentStart: 06-09-2024 End: 96-43-4084Khuzjlaehz Joey Macias DO Work Phone: [facility] - Family MedicineComment on above:Schizoaffective disorder, bipolar type (CMS-HCC) (Primary Dx); Wernicke's encephalopathy; Chronic obstructive pulmonary disease, unspecified COPD type (CMS-HCC); Parkinson's disease, unspecified whether dyskinesia present, unspecified whether manifestations fluctuate (CMS-HCC); Nicotine dependence, cigarettes, uncomplicated; Extrapyramidal and movement disorder, unspecified; Iliotibial band syndrome, unspecified laterality; Stage 2 chronic kidney disease due to benign hypertension; Class 1 obesity due to excess calories with serious comorbidity in adult, unspecified BMI; Convulsions, unspecified convulsion type (CMS-HCC); Hyperplasia of prostate without lower urinary tract symptoms (LUTS); White matter disease; Gastroesophageal reflux disease, unspecified whether esophagitis present; Mild cognitive impairmentStart: 14-65-3123hvtosaejfgXMWOAdventHealth Avista HospitalStart: 45-65-5289iarjpfakmhPKWKAdventHealth Avista HospitalStart: 03-03-2024 End: 76-89-3218czgbeffyirHXXIDC J [facility] CenterStart: 02-28-2024 End: 58-74-7338Znplbcsgbs hospital visit by Noah Gonzales MD Work Phone: [facility] Nuclear MedicineComment on above:ArrivedStart: 02-28-2024 End: 84-92-5582khnfliewktJKMJQ S WOLERYCentral Hospital Medical CenterStart: 02-10-2024 End: 64-25-4924mcuevgvigkZTGHDM J [facility] CenterStart: 02-05-2024 End: 93-25-7698Ltlvjhlzj department patient visitSuzanne Chan MD Work Phone: . [facility] EMERGENCY DEPTComment on above:Chest pain, unspecified type (Primary Dx)Start: 87-77-6832rzkkkssbyoHqulwjxngjb Abdelaziz Facility:[facility] Centertart: 04-59-8123ntdrqutjumKSQPMary Rutan Hospitaltart: 10-29-2023 End: 60-82-4081Llwm visit est pt mod-hi severity 40 minutesPamatt Kessler MD Work Phone: [facility] HospitalComment on above: Hypertensive heart disease without heart failure (Primary Dx); Cigarette nicotine dependence in remission; Gastroesophageal reflux disease without esophagitis; COPD, mild; Parkinson's disease without dyskinesia or fluctuating manifestations; Seizure disorder; Severe alcohol use disorder, in sustained remission; Mild cognitive impairmentStart: 08-24-2023 End: 91-24-0411Rkpnbwwcs department patient visitEDGUADALUPE Multani [facility] CenterStart: 94-95-0538Azqmauwzq for general adult medical examination without abnormal findingsStarr County Memorial Hospitaltart: 07-02-2023 ambulatoryAshtabula County Medical Centertart: 07-02-2023 End: 45-75-7938Odsq visit est pt mod-hi severity 40 minutesPamatt Kessler MD Work Phone: [facility] HospitalComment on above: Hypertensive heart disease without heart failure (Primary Dx); COVID-19 virus infection; COPD, mild; Seizure disorder; Parkinson's disease without dyskinesia or fluctuating manifestations; Cigarette nicotine dependence in remission; Gastroesophageal reflux disease without esophagitis; Severe alcohol use disorder, in sustained remission; Intractable chronic migraine without aura and without status migrainosus; Mild cognitive impairmentStart: 95-62-2834Ixllrjqzlu and management of inpatient Ben Ramires Other Phone: [phone]-A Other Phone: Start: 06-12-2023 End: 49-76-6605Yfabqyyhnh and management of inpatientPAUL [facility] Hospitaltart: 06-12-2023 End: 18-12-1893Yrcfqkvis department patient visitLAKE VIEW Awilda [facility] Hospitaltart: 06-12-2023 End: 59-04-6545Urgtjxynt department patient visitMatt Caldwell MD Work Phone: [facility] Emergency MedicineStart: 06-12-2023 End: 51-95-6239kumeuwjsifICSYColer-Goldwater Specialty Hospitaltart: 06-11-2023 End: 78-65-6303Ytbozeozh department patient visitSmagdi Maria Isabel Work Phone: [facility]Y DEPTComment on above:Parkinson disease (HCC) (Primary Dx); General weaknessStart: 87-34-4488zqfzhrbupkNGJBDayton Osteopathic Hospitaltart: 05-28-2023 End: 17-48-4631Ywgu visit est pt mod-hi severity 40 minutesMiguel Kessler MD Work Phone: [facility] HospitalComment on above: Hypertensive heart disease without heart failure (Primary Dx); COPD, mild; Seizure disorder; Parkinson's disease; Cigarette nicotine dependence in remission; Gastroesophageal reflux disease without esophagitis; Severe alcohol use disorder, in sustained remissionStart: 43-08-1805acuguchmgqSumma Health Wadsworth - Rittman Medical Centertart: 04-02-2023 End: 90-77-6697Lnxq visit est pt mod-hi severity 40 minutesMiguel Kessler MD Work Phone: [facility] HospitalComment on above: Intractable chronic migraine without aura and without status migrainosus (Primary Dx); Mass of joint of right shoulder; Hypertensive heart disease without heart failure; COPD, mild; Cigarette nicotine dependence in remission; Seizure disorder; Gastroesophageal reflux disease without esophagitis; Parkinson's disease; Physical debility; Severe alcohol use disorder, in sustained remissionStart: 02-26-2023 End: 76-11-0693Rjxjjipnb department patient visitJAKELIZABETH [facility] Troytart: 04-06-5673belpqzhtvvIATQKettering Health Preble Start: 02-26-2023 End: 43-78-8280Lvvq visit est pt mod-hi severity 40 minutesPamatt Kessler MD Work Phone: [facility] HospitalComment on above: Lethargy (Primary Dx); Hypertensive heart disease without heart failure; Dizziness; Generalized weakness; COPD, mild; Physical debility; Seizure disorder; Gastroesophageal reflux disease without esophagitis; Parkinson's disease; Severe alcohol use disorder, in sustained remission; Cigarette nicotine dependence in remissionStart: 02-24-2023 End: 94-83-2979Oxqcrdmjs department patient visitWallace Garcia DO Work Phone: [facility]ERGENCY DEPTComment on above:Acute pain of right hip (Primary Dx); Osteoarthritis of right hip, unspecified osteoarthritis typeStart: 02-19-2023 End: 73-36-4642Npvodimjo department patient visitFrancisco J Cole MD Work Phone: [facility] EMERGENCY DEPTComment on above:Nonspecific abdominal pain (Primary Dx)Start: 41-21-6195qgqrpzdpggYPWKRehabilitation Hospital of Fort Wayne HospitalStart: 10-14-2022 End: 23-52-0605Qwyyymstb department patient visitSted Simpson MD Work Phone: [facility] EMERGENCY DEPTComment on above:Feared complaint without diagnosis (Primary Dx); Essential hypertensionStart: 10-02-2022 End: 83-01-4953Psry visit est pt mod-hi severity 40 minutesPamatt Kessler MD Work Phone: [facility] HospitalComment on above: Influenza A H1N1 infection (Primary Dx); COPD with acute exacerbation; Dependence on continuous supplemental oxygen; Physical debility; Hypertensive heart disease without heart failure; Cigarette nicotine dependence, uncomplicated; Seizure disorder; Gastroesophageal reflux disease without esophagitis; Parkinson's disease; Severe alcohol use disorder, in sustained remission; Benign prostatic hyperplasia without lower urinary tract symptomsStart: 09-18-2022 End: 18-15-2009Ctqzojifvk and management of inpatientDarobbin Parrish MD Work Phone: [facility] SURG 8AComment on above:COPD exacerbation (HCC) (Primary Dx); Influenza with respiratory manifestation other than pneumonia; Acute on chronic respiratory failure with hypoxia (HCC)Start: 07-03-2022 End: 63-92-7306Ple/r-home e/m est pt mod hi severity 40 minutesPamatt Kessler MD Work Phone: van [facility] Providence HealthComment on above: Grief reaction (Primary Dx); Hypertensive heart disease without heart failure; COPD, mild; Cigarette nicotine dependence, uncomplicated; Gastroesophageal reflux disease without esophagitis; Parkinson's disease; Seizure disorder; Benign prostatic hyperplasia without lower urinary tract symptoms; Severe alcohol use disorder, in sustained remission; Mild cognitive impairment; Schizoaffective disorder, bipolar typeStart: 11-28-2021 End: 35-74-1438Ucx/r-home e/m est pt mod hi severity 40 minutesPamatt Kessler MD Work Phone: [facility] HospitalComment on above:Rolon's palsy (Primary Dx); COPD, mild; Cigarette nicotine dependence, uncomplicated; Gastroesophageal reflux disease without esophagitis; Parkinson's disease; Essential tremor; Seizure disorder; Benign prostatic hyperplasia without lower urinary tract symptoms; Severe alcohol use disorder, in sustained remission; Essential hypertension; Mild cognitive impairment; Schizoaffective disorder, bipolar type; Unsteady gaitStart: 09-26-2021 End: 76-97-6125Biw/r-home e/m est pt mod hi severity 40 minutesPamatt Kessler MD Work Phone: van [facility] HospitalComment on above:COPD, mild (Primary Dx); Parkinson's disease; Essential hypertension; Essential tremor; Gastroesophageal reflux disease without esophagitis; Seizure disorder; Severe alcohol use disorder, in sustained remission; Mild cognitive impairment; Schizoaffective disorder, bipolar typeStart: 05-02-2021 End: 56-86-6763Eluosmo/rest home new pt visit hi sever 60 minPamatt Kessler MD Work Phone: van [facility] HospitalComment on above:Essential hypertension (Primary Dx); COPD, mild; Parkinson's disease; Seizure disorder; Gastroesophageal reflux disease without esophagitis; Essential tremor; Mild cognitive impairment; Severe alcohol use disorder, in sustained remission; Benign prostatic hyperplasia without lower urinary tract symptoms; Schizoaffective disorder, bipolar typeStart: 03-13-2020 End: 17-18-7023Lmixrsz encounter procedureEDWARD HEMEYERFacility:Y8Uplad: 01-27-2020 End: 11-14-3726Gqesaeb encounter procedureEDWARD HEMEYERFacility:C8Lauqv: 06-16-2019 End: 74-71-9711Qpzzret encounter procedureEDWARD HEMEYERFacility:H1 Procedures DateProcedureProcedure DetailPerforming ClinicianStart: 54-32-5841Amxasphwch spect multiple studiesMavis Gonzales MD Work Phone: Start: 22-62-1159Yd angiography chest w/contrast/noncontrastJose Ballard MD Work Phone: Start: 52-21-5503Cmwnr of troponin quantitative Jose Ballard MD Work Phone: Start: 81-22-8619Zmbuhtoian exam chest 2 viewsEmchristy Chan MD Work Phone: Start: 90-92-0547Ugvii gap [Moles/Vol]Francisco J Cole MD Work Phone: Start: 88-20-3893Ltpyl metabolic panel calcium total Suzanne Chan MD Work Phone: Start: 92-21-3852BNBGBPGLOK FILTRATION RATE, ESTIMATED Francisco J Cole MD Work Phone: Start: 52-99-1624Kyx routine ecg w/least 12 lds w/i&r Jose Ballard MD Work Phone: Start: 06-12-2023 End: 76-55-1347QQP 12 channel panelAmarjeet Birdi Other Phone: Start: 83-48-6883Rtqzp nos amplified probe tq each organismMatt Caldwell MD Work Phone: Start: 60-06-5869UEMCJJJCV A/B ANTIGEN,Mg Caldwell MD Work Phone: Start: 83-56-2515FjonzsdioldHesjghbtbzaIOUAGOA GERMANStart: 13-97-9595Sve routine ecg w/least 12 lds w/i&rJuan Sandro Ribeiro MD Work Phone: Start: 52-18-5061Onowlxlekw exam chest 2 viewsVahe Ribeiro MD Work Phone: Start: 32-71-9837Xorqz dip stick/tablet rgnt auto w/o microscopyVahe Ribeiro MD Work Phone: Start: 65-49-5274Umbwz gap [Moles/Vol]Rj Agiro DO Work Phone: Start: 84-46-7682Rydoz metabolic panel calcium total Rj Agiro DO Work Phone: Start: 43-48-2912JVBIJWJMOQ FILTRATION RATE, ESTIMATED Rj Agiro DO Work Phone: Start: 55-77-9594Jlkjtya function panelVahe Ribeiro MD Work Phone: Start: 70-93-1634CCRHCPJ, SEPSISVahe Ribeiro MD Work Phone: Start: 52-37-4448Ix lower extremity w/o contrast Myra Garcia DO Work Phone: Start: 72-03-6440Gyxav hip unilateral with pelvis 2-3 viewsWallace Garcia DO Work Phone: Start: 22-79-6910Xb abdomen & pelvis w/contrast Mariana Cole MD Work Phone: Start: 25-17-3362Ixgxf gap [Moles/Vol]Francisco J Cole MD Work Phone: Start: 63-02-6806Ndpmhllrevlmh metabolic panelFrancisco J Cole MD Work Phone: Start: 80-37-3096TVFCFHIIUJ FILTRATION RATE, ESTIMATED Francisco J Cole MD Work Phone: Start: 50-62-2559Ihrqb dip stick/tablet rgnt auto w/o microscopyFrancisco J Cole MD Work Phone: Start: 38-12-2200Ibwnb dip stick/tablet reagent auto microscopyCasey Counts CLIP COATER - FORESTRY CONSULTANT Work Phone: Start: 48-26-1493Atzrp gap [Moles/Vol]Harry Counts CLIP COATER - FORESTRY CONSULTANT Work Phone: Start: 56-91-4609Ghgyc metabolic panel calcium total Harry Counts [employer] CONSULTANT Work Phone: Start: 69-63-9667SWJEUXVHVQ FILTRATION RATE, ESTIMATED Harry Counts [employer] CONSULTANT Work Phone: Start: 28-61-5609Dfozgyk function panelCasey Counts [employer] CONSULTANT Work Phone: Start: 99-15-2276Xrbf bld gluc mntr dev cleared fda spec home useBenrhina Hernandez PA-C Work Phone: Start: 54-54-1762Il angiography chest w/contrast/noncontrastHeather A Rethman [employer] CONSULTANT Work Phone: Start: 81-22-2136FZXF O2 EVAL (DESATURATION SCREEN) Jorge Hernandez PA-C Work Phone: Start: 82-76-7919Qvsx bld gluc mntr dev cleared fda spec home useHeather A Rethman [employer] - FORESTRY CONSULTANT Work Phone: Start: 30-12-5079Hcchs gap [Moles/Vol]Alice A Rethman [employer] FORE[employer]Y CONSULTANT Work Phone: Start: 06-93-6139FTARG METABOLIC PANEL W/ REFLEX TO MG FOR LOW KHeather A Rethman [employer]Y CONSULTANT Work Phone: Start: 48-29-0650Lrlfg count complete automatedHeather A Rethman CL[employer] CO[employer] - FORESTRY CONSULTANT Work Phone: Start: 74-09-2222QVHWOAWENI FILTRATION RATE, ESTIMATED Alice A Rethman [employer] FORESTR[employer] CONSULTANT Work Phone: Start: 04-23-4965Fnty bld gluc mntr dev cleared fda spec home useHeather A Rethman [employer] CONSULTANT Work Phone: Start: 30-71-2043Mhkos gap [Moles/Vol]Alice A Rethman [employer]ESTR[employer] CONSULTANT Work Phone: Start: 76-42-1973MWULI METABOLIC PANEL W/ REFLEX TO MG FOR LOW KHeather A Rethman [employer] FORE[employer]Y CONSULTANT Work Phone: Start: 39-97-5662Scmgv count complete automatedHeather A Rethman [employer] CO[employer] FORESTRY CONSULTANT Work Phone: Start: 00-56-7576QGRNZORFBF FILTRATION RATE, ESTIMATED Alice A Rethman [employer] CONSULTANT Work Phone: Start: 67-77-2889Cirelsyej serum plasma/whole blood Alice A Rethman [employer] FORESTR[employer] CONSULTANT Work Phone: Start: 31-31-6415Lpvce gap [Moles/Vol]Jocelin Sepulveda Brown PA-C Work Phone: Start: 65-83-0239NBBTY METABOLIC PANEL W/ REFLEX TO MG FOR LOW KAmber Derick Brown PA-C Work Phone: Start: 87-47-1540Mwger count complete auto&auto difrntl wbcAmber Derick Brown PA-C Work Phone: Start: 24-58-1543CDWWADUNUE FILTRATION RATE, ESTIMATED Jocelin Sepulveda Brown PA-C Work Phone: Start: 00-78-4165Ujlyqdhlap exam chest single view Tom Sorto MD Work Phone: Start: 20-52-4334Cfscu gap [Moles/Vol]Unknown Provider ResultStart: 41-44-9616WIBVP-19 & INFLUENZA COMBOJeremkelly Sorto MD Work Phone: Start: 33-55-3523YENKJCBYXZ FILTRATION RATE, ESTIMATED Unknown Provider ResultStart: 12-81-5880Jhwnlhedaff peptideTom Sorto MD Work Phone: Start: 23-44-4947Bgd routine ecg w/least 12 lds i&r Kishore Sorto MD Work Phone: Start: 06-16-2019 End: 16-78-4007Acthrpycbfd examination of blood, cultureEDWARD HEMEYERComment on above:Performed By: #### CBC #### [facility] [address] [place] [address] She Magana Plan of Treatment DateCare ActivityDetailAuthorStart: 47-77-3354Wkyte BMI ScreeningAdult BMI ScreeningJoint Township District Memorial Hospital SystemStart: 07-46-3311Jphvw BMI ScreeningAdult BMI ScreeningJoint Township District Memorial Hospital SystemStart: 07-99-1770Raatu BMI ScreeningAdult BMI ScreeningJoint Township District Memorial Hospital SystemStart: 26-14-0546Knzri BMI ScreeningAdult BMI ScreeningJoint Township District Memorial Hospital SystemStart: 40-26-4128Tbumg BMI ScreeningAdult BMI ScreeningJoint Township District Memorial Hospital SystemStart: 13-62-9394Hpuvj BMI ScreeningAdult BMI ScreeningJoint Township District Memorial Hospital SystemStart: 44-59-0613Tbmrl BMI ScreeningAdult BMI ScreeningJoint Township District Memorial Hospital SystemStart: 59-49-7876Ixctj BMI ScreeningAdult BMI ScreeningJoint Township District Memorial Hospital SystemStart: 77-99-6194Nuqpa BMI ScreeningAdult BMI ScreeningJoint Township District Memorial Hospital SystemStart: 29-00-7118Buiyr BMI ScreeningAdult BMI ScreeningJoint Township District Memorial Hospital SystemStart: 43-90-3336Fpdvuxihu vaccinationInfluenza VaccineJoint Township District Memorial Hospital SystemStart: 89-59-0046Erztcbmj identified in Urine by CultureUrine St. Vincent Hospitaltart: 44-31-0670Uurvo [facility] Southwoodstart: 54-47-1258Gtkllzbyu vaccination Influenza VaccineJoint Township District Memorial Hospital SystemStart: 89-29-5477Zxwpofcwg vaccination Flu vaccine (Season Ended)[facility]ITALStart: 03-03-2024 End: 18-27-2557Hcufrso encounter eickgkbol67/14/2024 10:15 AM EDT Office Visit [facility] [address] [facility] [place] [address] Mavis Gonzales MD [address] [facility] [address] [place] [address] f/u after testingSelect [facility]ty [facility] CardiologyComment on above:f/u after testingStart: 02-10-2024 End: 68-67-5426Oeonule encounter emyzxudgn41/23/2024 10:00 AM EDT Office Visit [facility] [address] [address] MncolFayette County Memorial Hospital CardiologyStart: 45-16-8092Qvntyq Wellness Visit (Medicare)Annual Wellness Visit (Medicare)[facility]: 34-78-2935Cwwnlrc Level.Zachary Level. Start: 25-Bhw-54933:00 [facility] Other Phone: Start: 48-76-1777Mbapn count complete automatedCBC Date: 13-Jun-2023 Comments: 06/13/23: wnl: ldl 46, a1c, F, abnl: b12 294[facility] Other Phone: comment on above:06/13/23: wnl: ldl 46, a1c, F, abnl: b12 294Start: 40-87-5364GDNUT-19 VACCINE ( season)COVID-19 VACCINE ( season)[facility] HospitalStart: 30-00-4538Azxxrtjcb vaccinationSelect Specialty HospitalStart: 54-39-4011Ndjrjdvvh vaccinationBON [facility]: 58-89-1482Fgtdtqeef vaccinationINFLUENZA VACCINE (#1)[facility] HospitalStart: 09-50-5806Pggxphgop vaccinationFlu vaccine (#1)[facility]ITALM[facility]: 78-46-5601TNXBB-19 VACCINE (5 - Booster for Moderna series)COVID-19 VACCINE (5 - Booster for Moderna series)[facility]: 91-23-8290BOEBJ-19 VACCINE (5 - Moderna series)COVID-19 VACCINE (5 - Moderna series)[facility]: 60-16-3371FGFRH-19 VACCINE (3 - Booster for Moderna series)COVID-19 VACCINE (3 - Booster for Moderna series)[facility]: 91-51-5266Erptrwwhd vaccinationINFLUENZA VACCINE (#1)[facility]: 63-45-4349IPKOP-19 VACCINE (3 - Booster for Moderna series)COVID-19 VACCINE (3 - Booster for Moderna series)[facility]: 13-81-1940Qnplln Wellness Visit (AWV)Annual Wellness Visit (AWV)[facility]: 86-77-1752XFURB-19 VACCINE (3 - Booster for Moderna series)COVID-19 VACCINE (3 - Booster for Moderna series)[facility]: 49-89-7558DLGSG-19 Vaccine (3 - Moderna series) COVID-19 Vaccine (3 - Moderna series)[facility]: 2018 Abdominal aortic aneurysm screeningVan [facility]: 43-00-0950Legt Risk ScreeningFall Risk ScreeningProMartins Ferry Hospital SystemStart: 84-64-5266Ayjxomhkiiap vaccinationVan [facility]: 33-08-0122Qclwiwjhdic Syncytial Virus (RSV) or age 60 yrs+ (1 - 1-dose 60+ series)Respiratory Syncytial Virus (RSV) or age 60 yrs+ (1 - 1-dose 60+ series)[facility]: 88-77-7785Tuxhmhngbpsfeo of varicella zoster vaccineZoster (Shingles) Vaccine (1 of 2)[facility] Hospital SystemStart: 63-44-9101Gjfkvmeu specific antigen measurementPROSTATE CANCER SCREENING DISCUSSIONVan [facility]: 2003 Shingles vaccine (1 of 2)Shingles vaccine (1 of 2)[facility]: 90-62-7135Rftkti vaccine hzv live for subcutaneous useZOSTER (SHINGLES) VACCINE (1 of 2)[facility]: 36-65-7302SgjhfseukbgCXPXFXHPIJ CANCER SCREENING DISCUSSIONFirstHealth: 21-80-5640Uopdrrzld for malignant neoplasm of colonFirstHealth: 28-64-0657Yxtxtei lipid profileLIPID SCREENINGFirstHealth: 18-52-7743Mgnzm panelLIPID SCREENINGFirstHealth: 62-06-4160Pkprnnmk screenDiabetes screenB[facility] Hospital: 27-96-8454LPoS,Tdap and Td Vaccines (1 - Tdap)DTaP,Tdap and Td Vaccines (1 - Tdap)[facility] Centertart: 82-96-8248JXjK/Tdap/Td vaccine (1 - Tdap) DTaP/Tdap/Td vaccine (1 - Tdap)[facility]: 38-24-2637Lrxro diphtheria, tetanus and acellular pertussis (DTaP) vaccinationTDAP (ADULT)[facility]: 67-96-1299Yhvpcnwvl C screeningHepatitis C screenBuchanan General Hospital: 21-84-5340Uyiqhgz vaccinationTETANUSFirstHealth: 01-96-6277Mtqbkqzmop MonitoringDepression MonitoringB[facility] Start: 67-27-9171Cmmvvkpnxc ScreeningDepression ScreeningJoint Township District Memorial Hospital System Start: 87-24-5538Jhlubtr ScreeningTobacco ScreeningCarolinaEast Medical Centertart: 74-73-7874Mxuzg panelLipidsInova Health Systemart: 1961 Pneumococcal 65+ years Vaccine (1 - PCV)Pneumococcal 65+ years Vaccine (1 - PCV) [facility] Systemart: 05-77-4149Ufiqvwnrndgt 65+ years Vaccine (1 of 2 - PCV)Pneumococcal 65+ years Vaccine (1 of 2 - PCV)[facility] Start: 58-21-8257Feulsezxqsjs vaccinationFirstHealth: 1955 Hepatitis B vaccinationHEP B VACCINE (1 of 3 - 3-dose series)[facility] Start: 96-44-4185Rlytksant C antibody, confirmatory testHEPATITIS C VIRUS SCREENINGVan Regional Medical CenterStart: 32-57-7154Zpmpwevky C screeningHEPATITIS C VIRUS SCREENINGVan Regional Medical CenterStart: 64-48-3852Hiqirhx vaccinationTETANUSVan Regional Medical CenterAcapellaAcapella Respiratory Care Routine Daily until discontinued starting 09/19/2022 [employer] Phone: comment on above:Daily until discontinued starting 09/19/2022rthroscopy shoulder rotator cuff repairArthroscopy of left shoulder with repair of rotator cuffBinghamton State Hospital Other Phone: colonoscopy flx dx w/collj spec when pfrmdColonoscopy [facility] Other Phone: EKG 12 LeadEKG 12 Lead ECG STAT 06/11/2023 12:31 PM EDTB Voci TechnologiesEKG EmergencyEKG Emergency ECG STAT 02/05/2024 3:35 PM EDVirtuata End: 96-18-2155Mmpumekwztlkxzph Panel, MolecularGastrointestinal Panel, Molecular Microbiology STAT One Time for 1 Occurrences starting 02/19/2023 until 02/19/2023 [employer] Phone: Comment on above:One Time for 1 Occurrences starting 02/19/2023 until 02/19/2023Initiate RT Inhaler-Nebulizer Bronchodilator Protocol Initiate RT Inhaler-Nebulizer Bronchodilator Protocol Respiratory Care Routine BID until discontinued starting 09/19/2022 [employer] Phone: comment on above:BID until discontinued starting 2Oxygen therapy [Minimum Data Set]Initiate Oxygen Therapy Protocol Respiratory Care Routine As Needed until discontinued starting 09/18/2022 [employer] Phone: comment on above:As Needed until discontinued starting 2R & l hrt cath w/njx l ventriculog img s&iComplete cardiac catheterizationB[facility]ton [facility] Hospital Other Phone: [facility] Other Phone: Immunizations Immunization DateImmunizationNotesCare JunrpgbmVxqagdbf19-46-8199KJFE-ZAA-0 (COVID-19), Mrna, Lnp-s, Pf, 100 Mcg/ 0.5 Ml Dose Shania Kessler MD Work Phone: [facility] HospitalLpeaga15-74-7601TRFA-LCL-9 (COVID-19), Mrna, Lnp-s, Pf, 100 Mcg/ 0.5 Ml Dose Shania Kessler MD Work Phone: [facility] Payers DatePayer CategoryPayerPolicy [id number] HMO [id number] 2023Self-pay2021Medicaid MEDICAID MEDICAID [id number] 2021-Present [address] [place] [address] [id number] 2021MedicareMEDICARE MEDICARE A AND B [id number] 2021-Present [address] [place] [address] [id number] 2019Medicaid [id number] 2018Medicare [id number] 2018Unknown1960Medicaid [id number] [id number] [id number] 2.840.1.344503.3.57[id number] 2.16.840.1.070517.3.57[id number] 2.16.840.1.951755.3.57[id number] 2.16.840.1.015797.3.57[id number] 2.16.840.1.988579.3.57[id number] 2.16.840.1.268546.3.57[id number] 2.16.840.1.059655.3.57[id number] 2.16.840.1.226383.3.57[id number] 2.16.840.1.048489.3.57[id number] 2.16.840.1.733045.3.57[id number] 2.16.840.1.790500.3.57[id number] 2.16.840.1.332841.3.5[id number] 2.16.840.1.380147.3.5[id number] 2.16.840.1.168059.3.5[id number] 2.16.840.1.964010.3.57[id number] 2.16.840.1.678800.3.5[id number] 2.16.840.1.616656.3.5[id number] 2.16.840.1.384613.3.5[id number] 2.16.840.1.573469.3.5[id number] 2.16.840.1.260141.3.5[id number] 2.16.840.1.900898.3.5[id number] 2.16.840.1.552411.3.57[id number] 2.16.840.1.896312.3.579.2.179MedicaidCaresource [id number] 2.16.840.1.1[id number] 2.16840.1.840593.3.579.2.531 Social History DateTypeDetailFacilityStart: 05-03-2021 End: 95-37-3770Xxljjtp smoking status NHISSmokes tobacco dailySelect Specialty Hospital Start: 05-03-2021 End: 08-18-3629Kexsplw use and exposureSmokeless tobacco non-userSelect Specialty Hospital Start: 14-55-2127Xut Assigned At BirthNot on [facility] HealthStart: 11-18-2021 End: 24-88-9909Jcaivtmp to SARS-CoV-2 (event)Not [facility] HospitalHistory of tobacco useCiUF Health [facility] [employer] Work Phone: start: 10-31-2020 End: 00-58-6181Zuhbknwtwq smoked current (pack per day) - Reported0.3BON [employer] TechnologiesStart: 09-18-2022 End: 74-50-5241Shfskiz intakeEx-drinker (finding)[facility] [employer] Phone: start: 16-35-0331Wtqxbxy SDOH Alcohol Ccudlskrv7HIM [employer] Phone: start: 65-22-0084Ekzljgm SDOH Alcohol Std Mviwyq2IOZ [employer] Phone: start: 10-31-2020 End: 86-41-8839Gdbomun use panelPHOENIX CHILDREN'S HOSPITAL V[employer] TechnologiesHow often to you have a drink containing alcohol?NeverPHOENIX CHILDREN'S HOSPITAL V[employer] TechnologiesHow many standard drinks containing alcohol do you have on a typical day?Patient does not drinkPHOENIX CHILDREN'S HOSPITAL V[employer] TechnologiesStart: 94-85-6755Lxkkenl Commentquit 1.5 years agoPHOENIX CHILDREN'S HOSPITAL V[employer] TechnologiesStart: 39-31-5763Jk-smokerBinghamton State Hospital Other Phone: Tobacco smoking status NHISUnknown if ever smoked [facility] Hospitalfarmhopping SystemStart: 90-09-7437BmuWlawasu sex unknown (finding) [facility] Centertart: 74-06-8375Hsu Assigned At [facility] Hospitaltart: 31-39-0961RcgFauu (finding)ProMHennepin County [facility] System Functional Status DateAssessmentResultFacilityNEGATED: Highlighted rowFunctional Status excluded/not availableBinghamton State Hospital Other Phone: Mental Status DateAssessmentResultFacilityMental Status excluded/not available Mental Status excluded/not availableBinghamton State Hospital Other Phone: Clinical Notes 05-02-2021 to 07-06-2025 Note Date & VfcrWbysBpegfror78-83-4541 History of Present illness Narrative* Fabien Macias, - 07/06/2025 5:14 PM EDT Images from the original note were not included. Patient Name: Sana Stanley Date of : 1955 Date of Service: 07/06/2025 Facility: [facility] Type of Visit: Acute Visit Subjective Sana Stanley is a 70 y.o. male seen today at [facility] for problem and monthlyvisit. Staff asked me to evaluate Dave. He has been leaning more to his right for the last 2 weeks. [facility] [employer] evaluated him and felt there were no neuro deficits. He is currently on doxycycline for an infected cyst on his chest. He was noted to be wheezing too and O2 sats on 2L/min of O2 was 94% so she ordered a CXR. It showed atelectasis but no pneumonia or CHF. Allergies: Patient has no known allergies. Code Status: [facility] BP 160/84 Pulse 60 Temp 36.8 C (98.3 F) Resp 16 Wt 98 kg (216 lb) SpO2 97% BMI 33.83 kg/m Physical Exam Vitals reviewed. Constitutional: General: He is not in acute distress. Appearance: He is not ill-appearing. Comments: Sitting in wheelchair in unit HENT: Head: Normocephalic. Cardiovascular: Rate and Rhythm: Normal rate and regular rhythm. Heart sounds: Normal heart sounds. No murmur heard. Pulmonary: Effort: Pulmonary effort [...] present. Left lower le+ Pitting Edema present. Skin: Findings: Lesion present. Comments: Cystic mass on center of chest with erythema, fluctuance Neurological: Mental Status: He is alert. He is disoriented. Motor: Weakness (RLE) present. Psychiatric: Attention and Perception: He is inattentive. Speech: Speech is delayed. Behavior: Behavior is slowed. Cognition and Memory: Cognition is impaired. Comments: Doesn't make eye contact Summary / Assessment / Plan 1. Essential hypertension 2. Parkinson's disease, unspecified whether dyskinesia present, unspecified whether manifestations fluctuate ([facility]) 3. Infected sebaceous cyst 4. Right leg weakness 5. Chronic obstructive pulmonary disease, unspecified COPD type ([facility]-HCC) Increase losartan to 100 mg daily for elevated blood pressure. Finish doxycycline. I noted right leg weakness. He is leaning to the right. He may have had a CVA. He is a DNRCC. Will try to control risk factors. All medications reviewed and are medically necessary. ELECTRONICALLY SIGNED BY: Fabien Macias DO documented in this encounterBarre City HospitalNorthern Defence & Security Ocjbae33-15-2198 History of Present illness Narrative* Fabien Macias DO - 06/01/2025 3:06 PM EDT Patient Name: Sana Stanley Date of : 1955 Date of Service: 06/01/2025 Facility: [facility] Type of Visit: Subsequent Visit Subjective Sana Stanley is a 69 y.o. male seen today at [facility] facility for monthly visit. Dave has been laying himself on the floor lately. There were no injuries. Psych was managing his lithium but it was difficult to get an appropriate level so they stopped it. No new medical issues. Allergies: Patient has no known allergies. [facility] 152/74 Pulse 57 Temp 36.6 C [...] BY: Fabien Macias DO documented in this encounterCommunity Regional Medical Center08-01-2025 History of Present illness Narrative* Fabien Macias DO - 04/20/2025 3:50 PM EDT Patient Name: Sana Stanley Date of : 1955 Date of Service: 04/20/2025 Facility: [facility] Type of Visit: Acute Visit Subjective Sana Stanley is a 69 y.o. male seen today at [facility] facility for problem and monthlyvisit. Facility asked me to see the patient to determine his ability to manage his own finances. There is a form to fill out for a rep payee to be named if he is not competent to manage his own finances. Hedenies medical problems. He does not know where he is. He does not know the day or date. He can notdo simple math. Psychiatric problems are being managed by [employer]. Allergies: Patient has no known allergies. Code Status: [facility] 108/74 Pulse 92 Temp 36.6 C [...] Memory is impaired. He exhibits impaired recent memoryand impaired remote memory. Summary / Assessment / Plan 1. Wernicke's encephalopathy 2. Cognitive impairment 3. Schizoaffective disorder, unspecified type ([facility]) 4. Parkinson's disease, unspecified whether dyskinesia present, unspecified whether manifestations fluctuate ([facility]) 5. Chronic obstructive pulmonary disease, unspecified COPD type ([facility]) Forms filled out for his rep payee as he is unable to manage his own finances due to Wernicke's encephalopathy and cognitive impairment. There is no cure which will reverse his deficits. His condition will only likely worsen over time. Medically stable. Appreciate psych management by [employer]. All medications reviewed and are medically necessary. ELECTRONICALLY SIGNED BY: Fabien Macias DO documented in this encounterMercy HospitalOptiNose Ligzbq70-25-2859 History of Present illness Narrative* Fabien Macias DO - 04/10/2025 11:59 PM EDT Patient Name: Sana Stanley Date of : 1955 Date of Service: 04/10/2025 Facility: [facility] Type of Visit: Subsequent Visit Subjective Sana Stanley is a 69 y.o. male seen today at [facility] facility for regular visit. No new problems reported by staff or patient. Allergies: Patient has no known allergies. Code Status: [facility] BP 135/89 Pulse 70 Temp 36.7 C (98.1 F) Resp 18 Wt 93.2 kg (205 lb 6.4 oz) SpO2 97% BMI32.17 kg/m Physical Exam Vitals reviewed. Constitutional: General: [...] Memory is impaired. He exhibits impaired recent memoryand impaired remote memory. Summary / Assessment / Plan 1. Wernicke's encephalopathy 2. Parkinson's disease, unspecified whether dyskinesia present, unspecified whether manifestations fluctuate (CMS-HCC) 3. Chronic obstructive pulmonary disease, unspecified COPD type (CMS-HCC) Medically stable. Continue current regimen. All medications reviewed and are medically necessary. ELECTRONICALLY SIGNED BY: Fabien Macias DO documented in this encounterCommunity Regional Medical Center06-20-2025 History of Present illness Narrative* Fabien Macias, DO - 03/09/2025 3:30 PM EDT Patient Name: Sana Stanley Date of : 1955 Date of Service: 03/09/2025 Facility: [facility] Type of Visit: Subsequent Visit Subjective Sana Stanley is a 69 y.o. male seen today at [facility] facility for regular monthly visit. No new problems reported by staff or patient. He denies chest pain, shortness a breath or pain. He does admit that he is sleepy today. Allergies: Patient has no known allergies. Code Status: [facility] BP 127/77 Pulse 82 Temp 36.2 [...] Memory is impaired. He exhibits impaired recent memoryand impaired remote memory. Assessment/Plan Summary / Assessment / Plan 1. Chronic obstructive pulmonary disease, unspecified COPD type ([facility]) 2. Wernicke's encephalopathy 3. Parkinson's disease, unspecified whether dyskinesia present, unspecified whether manifestations fluctuate ([facility]) Medically stable. Continue current regimen. Check CMP, CBC, lithium level in May All medications reviewed and are medically necessary ELECTRONICALLY SIGNED BY: Fabien Macias DO documented in this encounterBarre City HospitalBlack Hammer Brewing [facility] Rapids Medical [id number] History of Present illness Narrative* Fabien Macias DO - 01/10/2025 3:41 PM EDT Patient Name: Sana Stanley Date of : 1955 Date of Service: 01/10/2025 Facility: [facility] Type of Visit: Subsequent Visit Subjective Sana Stanley is a 69 y.o. male seen today at [facility] for regular visit. No new problems reported by staff or patient. He denies shortness a breath. Allergies: Patient has no known allergies. Code Status: [facility] Physical Exam Vitals reviewed. Exam conducted with a sap basis present (Brain Roblero MS 3). Constitutional: General: [...] Memory is impaired. He exhibits impaired recent memoryand impaired remote memory. Summary / Assessment / Plan 1. Parkinson's disease, unspecified whether dyskinesia present, unspecified whether manifestations fluctuate ([facility]) 2. Chronic obstructive pulmonary disease, unspecified COPD type ([facility]) 3. Wernicke's encephalopathy 4. Schizoaffective disorder, unspecified type ([facility]) Medically stable. Continue current regimen. All medications reviewed and are medically necessary. Psychiatry service is managing his psychiatric medications. Appreciate their management. ELECTRONICALLY SIGNED BY: Fabien Macias DO documented in this encounterCommunity Regional Medical Center03-20-2025 History of Present illness Narrative* Fabien Macias DO - 12/07/2024 11:59 PM EDT Patient Name: Sana Stanley Date of : 1955 Date of Service: 12/07/2024 Facility[place] [facility] Type of Visit: Subsequent Visit Subjective Sana Stanley is a 69 y.o. male seen [facility] at [facility] for regular monthly visit. No new problems reported by staff or patient. Allergies: Patient has no known allergies. Code Status: [facility] BP 124/70 Pulse 82 Temp 37 [...] Memory is impaired. He exhibits impaired recent memoryand impaired remote memory. Summary / Assessment / Plan 1. Wernicke's encephalopathy 2. Extrapyramidal and movement disorder, unspecified 3. Stage 2 chronic kidney disease due to benign hypertension 4. Schizoaffective disorder, unspecified type ([facility]) Medically stable. Continue current regimen. All medications reviewed and are medically necessary. ELECTRONICALLY SIGNED BY: Fabien Macias DO documented in this encounterMercy HospitalOptiNose [id number] History of Present illness Narrative* Fabien Macias DO - 11/07/2024 2:59 PM EST Patient Name: Sana Stanley Date of : 1955 Date of Service: 11/07/2024 Facility: [facility] Type of Visit: Skilled Visit Subjective Sana Stanley is a 69 y.o. male seen today at [facility] facility for therapy visit. Sana is still in therapy. He feels that he is getting better. He has no new problems to report. Staff does not have any new concerns for me. Allergies: Patient has no known allergies. Code Status: [facility] BP (!) 122/98 Pulse 110 SpO2 98% Physical Exam Vitals reviewed. Exam conducted with a sap basis present (Priyank Arthuramalia MS 3). Constitutional: General: He is not [...] Memory is impaired. He exhibits impaired recent memoryand impaired remote memory. Summary / Assessment / Plan 1. Chronic obstructive pulmonary disease, unspecified COPD type (CMS-HCC) 2. Protein-calorie malnutrition, unspecified severity (CMS-HCC) 3. Parkinson's disease, unspecified whether dyskinesia present, unspecified whether manifestations fluctuate (CMS-HCC) 4. Mild cognitive impairment Continue therapy to reach maximum improvement. Medically stable. Continue current regimen. All medications reviewed and are medically necessary. ELECTRONICALLY SIGNED BY: Fabien Macias, documented in this encounterCommunity Regional Medical Center02-11-2025 History of Present illness Narrative* Fabien Macias DO - 10/31/2024 11:59 PM EST Patient Name: Sana Stanley Date of : 1955 Date of Service: 10/31/2024 Facility: [facility] Type of Visit: Skilled Visit Subjective Sana Stanley is a 69 y.o. male seen today at [facility] for therapy visit. Dave is in therapy. No new problems are reported by staff or patient. He is getting physical, occupational and speech therapy. Good participation was noted. Allergies: Patient has no known allergies. Code Status: [facility] BP 147/69 Pulse 92 SpO2 90% Physical Exam Vitals reviewed. Exam conducted with a sap basis present (Priyank Byrd MS 3). Constitutional: General: [...] Memory is impaired. He exhibits impaired recent memoryand impaired remote memory. Summary / Assessment / Plan 1. Parkinson's disease, unspecified whether dyskinesia present, unspecified whether manifestations fluctuate ([facility]) 2. Wernicke's encephalopathy 3. Mild cognitive impairment 4. Chronic obstructive pulmonary disease, unspecified COPD type (CMS-HCC) 5. Protein-calorie malnutrition, unspecified severity (CMS-HCC) Continue therapy to reach maximum improvement. Medically stable. Continue current regimen. ELECTRONICALLY SIGNED BY: Fabien Macias DO documented in this encounterCommunity Regional Medical Center02-07-2025 History of Present illness Narrative* Fabien Macias DO - 10/27/2024 11:59 PM EST Patient Name: Sana Stanley Date of : 1955 Date of Service: 10/27/2024 Facility: [facility] Type of Visit: Skilled Visit Subjective Sana Stanley is a 69 y.o. male seen today at [facility] for therapy visit. Dave is in therapy still. They are working on balance, strengthening, transfers and mobility. They also working with him for self-care tasks. Speech is focusing on safe swallowing strategies and improving oral strengthening to increase mastication for improve swallowing. He denies any new problems today. Staff reports no new problems. Allergies: Patient has no known allergies. Code Status: [facility] BP (!) 150/91 Pulse 81 Wt 90.3 kg (199 lb) SpO2 95% BMI 31.17 kg/m Physical Exam Vitals reviewed. Exam conducted with a sap basis present (Priyank Byrd MS 3). Constitutional: General: [...] Memory is impaired. He exhibits impaired recent memoryand impaired remote memory. Summary / Assessment / [...] BY: Fabien Macias DO documented in this encounterCommunity Regional Medical Center01-28-2025 History of Present illness Narrative* Fabien Macias DO - 10/17/2024 9:26 PM EST Patient Name: Sana Stanley Date of : 1955 Date of Service: 10/17/2024 Facility: [facility] Type of Visit: Skilled Visit Subjective Sana Stanley is a 69 y.o. male seen today at [facility] for therapy visit. June is in therapy. They are working on ambulation , balance and strengthening. Speech is focusingon swallowing strategies. Staff reports no new problems. Allergies: Patient has no known allergies. Code Status: [facility] BP 134/69 Pulse 72 Temp 36.5 C (97.7 F) Resp 18 SpO2 94% Physical Exam Vitals reviewed. Exam conducted with a sap basis present (Carisa Aly MS 3). Constitutional: General: [...] Memory is impaired. He exhibits impaired recent memoryand impaired remote memory. Summary / Assessment / Plan 1. Parkinson's disease, unspecified whether dyskinesia present, unspecified whether manifestations fluctuate ([facility]) 2. Wernicke's encephalopathy 3. Chronic obstructive pulmonary disease, unspecified COPD type ([facility]) 4. Extrapyramidal and movement disorder, unspecified Continue therapy to reach maximum improvement. Medically stable. Continue current regimen. All medications reviewed and are medically necessary. ELECTRONICALLY SIGNED BY: Fabien Macias DO documented in this encounterCommunity Regional Medical Center01-21-2025 History of Present illness Narrative* Fabien Macias DO - 10/10/2024 11:59 PM EST Patient Name: Sana Stanley Date of : 1955 Date of Service: 10/10/2024 Facility: [facility] Type of Visit: Skilled Visit Subjective Sana Stanley is a 69 y.o. male seen today at [facility] for therapy visit. Dave is in therapy and is participating. He was referred due to a recent fall. He is walking 15 ft with a 4 wheeled walker with standby assistance. Speech is focusing on safe swallowing strategies. There are no new medical problems to report. Allergies: Patient has no known allergies. [facility] 138/77 Pulse 77 Temp 36.4 C (97.6 F) Resp 20 SpO2 97% Physical Exam Vitals reviewed. Exam conducted with a sap basis present (Carisa Aly MS 3). Constitutional: General: [...] Memory is impaired. He exhibits impaired recent memoryand impaired remote memory. Summary / Assessment / Plan 1. Parkinson's disease, unspecified whether dyskinesia present, unspecified whether manifestations fluctuate ([facility]) 2. Schizoaffective disorder, unspecified type (CMS-HCC) 3. Wernicke's encephalopathy 4. Chronic obstructive pulmonary disease, unspecified COPD type (CMS-HCC) Continue therapy to reach maximum improvement. Medically stable. Continue current regimen. ELECTRONICALLY SIGNED BY: Fabien Macias DO documented in this encounterCommunity Regional Medical Center01-14-2025 History of Present illness Narrative* Fabien Macias DO - 10/03/2024 11:59 PM EST Patient Name: Sana Stanley Date of : 1955 Date of Service: 10/03/2024 Facility: [facility] Type of Visit: Skilled Visit Subjective Sana Stanley is a 69 y.o. male seen today at [facility] for therapy visit. Dave is in physical therapy. He was referred because of a recent fall, decline in mobility and transfers and recent change in swallowing. He has no new problems to report. Nursing has no new concerns. Allergies: Patient has no known allergies. [facility]: [facility] 127/68 Pulse 82 Temp 36.8 C (98.3 F) Resp 20 SpO2 98% Physical Exam Vitals reviewed. Exam conducted with a sap basis present (Carisa Aly MS 3). Constitutional: General: [...] Memory is impaired. He exhibits impaired recent memoryand impaired remote memory. Summary / Assessment / [...] BY: Fabien Macias DO documented in this encounterMercy HospitalOptiNose [id number] History of Present illness Narrative* Fabien Macias DO - 08/11/2024 3:41 PM EST Patient Name: Sana Stanley Date of : 1955 Date of Service: 08/11/2024 Facility: [facility] Type of Visit: Subsequent Visit Subjective Sana Stanley is a 69 y.o. male seen today at [facility] for monthly visit. No new problems reported by staff or patient. He denies pain. Appetite is good. Allergies: Patient has no known allergies. Code Status: [facility] BP 158/78 Pulse 88 Wt 91.3 [...] Memory is impaired. He exhibits impaired recent memoryand impaired remote memory. Summary / Assessment / Plan 1. Wernicke's encephalopathy 2. Parkinson's disease, unspecified whether dyskinesia present, unspecified whether manifestations fluctuate ([facility]) 3. Chronic obstructive pulmonary disease, unspecified COPD type ([facility]) 4. Stage 2 chronic kidney disease due to benign hypertension Medically stable. Continue current regimen. All medications reviewed and are medically necessary. ELECTRONICALLY SIGNED BY: Fabien Macias DO documented in this encounterBarre City HospitalBritely10-22-2024 History of Present illness Narrative* Fabien Macias DO - 07/11/2024 11:59 PM EDT Patient Name: Sana Stanley Date of : 1955 Date of Service: 07/11/2024 Facility: [facility] Type of Visit: Skilled Visit Subjective Sana Stanley is a 69 y.o. male seen today at [facility] for therapy visit. Dave is in therapy. He is going to be discharged later this week. The staff has no new problems to report. He denies any problems. He denies pain. Appetite is okay. Allergies: Patient has no known allergies. Code Status: [facility] BP 108/70 Pulse 60 Physical Exam [...] Memory is impaired. He exhibits impaired recent memoryand impaired remote memory. Comments: Poor eye contact Summary / Assessment / Plan 1. Parkinson's disease, unspecified whether dyskinesia present, unspecified whether manifestations fluctuate ([facility]) 2. Mild cognitive impairment 3. Schizoaffective disorder, unspecified type ([facility]) 4. Wernicke's encephalopathy Finish out therapy to reach maximum improvement. Medically stable. Continue current regimen. All medications reviewed and are medically necessary. ELECTRONICALLY SIGNED BY: Fabien Macias DO documented in this encounterMercy HospitalOptiNose [id number] History of Present illness Narrative* Fabien Macias DO - 07/04/2024 4:09 PM EDT Patient Name: Sana Stanley Date of : 1955 Date of Service: 07/04/2024 Facility: [facility] Type of Visit: Skilled Visit Subjective Sana Stanley is a 69 y.o. male seen today at [facility] for therapy visit. Dave is participating in physical therapy. There are no new problems reported by staff or patient. They are going to continue therapy for at least another week to increase standing tolerance, strengthand balance Allergies: Patient has no known allergies. Code Status: [facility] BP 116/74 Pulse 76 Physical Exam [...] Memory is impaired. He exhibits impaired recent memoryand impaired remote memory. Comments: Poor eye contact Summary / Assessment / Plan 1. Wernicke's encephalopathy 2. Extrapyramidal and movement disorder, unspecified 3. Parkinson's disease, unspecified whether dyskinesia present, unspecified whether manifestations fluctuate ([facility]) Continue therapy to reach maximum improvement. Medically stable. Continue current regimen. All medications reviewed and are medically necessary. ELECTRONICALLY SIGNED BY: Fabien Macias DO documented in this encounterMercy HospitalOptiNose [id number] History of Present illness Narrative* Fabien Macias DO - 06/27/2024 11:53 AM EDT Patient Name: Sana Stanley Date of : 1955 Date of Service: 06/27/2024 Facility: [facility] Type of Visit: Skilled Visit Subjective Sana Stanley is a 69 y.o. male seen today at [facility] facility for therapy visit. No new problems reported by staff or patient except that he seems to be incontinent more frequently. He does voice his needs. He is now on a 2 hour toileting schedule. Allergies: Patient has no known allergies. Code Status: [facility] BP 134/76 Pulse 82 Wt 88.6 [...] Memory is impaired. He exhibits impaired recent memoryand impaired remote memory. Assessment/Plan Summary / Assessment / Plan 1. Wernicke's encephalopathy 2. Parkinson's disease, unspecified whether dyskinesia present, unspecified whether manifestations fluctuate ([facility]) 3. BPH with lower urinary tract symptoms without urinary obstruction Medically stable. Continue current regimen. Continue therapy to reach maximum improvement. All medications reviewed and are medically necessary. ELECTRONICALLY SIGNED BY: Fabien Macias DO documented in this encounterCommunity Regional Medical Center10-04-2024 History of Present illness Narrative* Fabien Macias, DO - 06/23/2024 11:59 PM EDT Patient Name: Sana Stanley Date of : 1955 Date of Service: 06/23/2024 Facility: [facility] Type of Visit: Skilled Visit Subjective Sana Stanley is a 69 y.o. male seen today at [facility] facility for skilled visit. Dave is participating in therapy. He was evaluated for PT and OT to establish a baseline for transition to LTC. He denies problems. Allergies: Patient has no known allergies. Code Status: [facility] BP 135/82 Pulse 82 Temp 36.4 [...] Memory is impaired. He exhibits impaired recent memoryand impaired remote memory. Summary / Assessment / [...] BY: Fabien Macias DO documented in this encounterCommunity Regional Medical Center09-20-2024 History of Present illness Narrative* Fabien Macias DO - 06/09/2024 11:59 PM EDT Patient Name: Sana Stanley Date of : 1955 Date of Service: 06/09/2024 Facility: [facility] Type of Visit: Admission H&P Subjective Sana Stanley is a 69 y.o. male seen today at [facility] facility for admission H&P. Paper H&P reviewed and updated. Dave presents to [facility] from [facility] for long-term care. He hasno new problems to report. He denies CP, SOB or pain. No past medical history on file. No past surgical history on file. No family history on file. Allergies: Patient has no known allergies. Code Status: [facility] The following portions of the patient's history were reviewed and updated as appropriate: allergies, current medications, past family history, past medical history, past social history, past surgicalhistory, problem list, and medication reconciliation was completed including current medication andpost discharge medication. BP (!) 119/93 Pulse 92 [...] Memory is impaired. He exhibits impaired recent memoryand impaired remote memory. Summary / Assessment / Plan 1. Schizoaffective disorder, bipolar type ([facility]) 2. Wernicke's encephalopathy 3. Chronic obstructive pulmonary disease, unspecified COPD type ([facility]) 4. Parkinson's disease, unspecified whether dyskinesia present, unspecified whether manifestations fluctuate ([facility]) 5. Nicotine dependence, cigarettes, uncomplicated 6. Extrapyramidal and movement disorder, unspecified 7. Iliotibial band syndrome, unspecified laterality 8. Stage 2 chronic kidney disease due to benign hypertension 9. Class 1 obesity due to excess calories with serious comorbidity in adult, unspecified BMI 10. Convulsions, unspecified convulsion type ([facility]) 11. Hyperplasia of prostate without lower urinary tract symptoms (LUTS) 12. White matter disease 13. Gastroesophageal reflux disease, unspecified whether esophagitis present Admit to [facility] for joint terminal attack controller care. DNCC. Continue current regimen. Will follow ELECTRONICALLY SIGNED BY: Fabien Macias DO documented in this encounterMartins Ferry Hospital [place] [id number] Varun Kessler MD Patient ID: Sana Stanley is [...] feeling well. Underwent cardiac testing by his jogger operator and had an echocardiogram which showed an [...] hemoptysis. Gastrointestinal: Negative for (more content not included)...[facility]05-18-2024 Hospital Discharge instructions* Discharge Instructions * Jose Ballard MD - 02/05/2024 8:04 PM [...] primary care physician may order this test asfurther work-up for your chest pain. If you have a jogger operator, then you should also call them to [...] vision, loss of bladder / bowel control, unableto follow up with your physician, or other any other care or concern. * Attachments The following attachments cannot be sent through Care Everywhere. * Chest Pain (Spanish) * Is It a Heart Attack?: Video (Spanish) documented in this encounterBON [facility] NotePROCEDURE: CTA THORACIC AORTA CLINICAL INFORMATION: chest pain [...] pulmonary arterial hypertension. No evidence for dissection. [facility] [id number] NotePROCEDURE: CTA THORACIC AORTA CLINICAL INFORMATION: chest pain [...] Signed by: Omero Chávez MD 02/05/24 Final resultSaint [facility] NotePROCEDURE: XR CHEST (2 VW) CLINICAL INFORMATION: chest pain COMPARISON: 08/24/2023 TECHNIQUE: AP upright and lateral views of the chest were obtained. [facility] RIS [id number] NotePROCEDURE: XR CHEST (2 VW) CLINICAL INFORMATION: chest [...] Signed by: Omero Chávez MD 02/05/24 Final resultSaint [facility]02-09-2024 History of Present illness Narrative* Miguel Kessler MD - 10/29/2023 8:15 AM EST Patient ID: Sana Stanley is a 68 y.o. male CC: [facility] visit for Essential Hypertension, COPD, Parkinson's [...] the care he is receiving at this facilityand for his health. Patient during interview and [...] and has grandchildren, chronic tobacco user, former heavyalcohol user, on disability for mental health FAMHx: [...] vaccination, including booster. 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 Follow-up with Neurology for Parkinson's management. Becoming current with dental and ocular care visits as clinically indicated. Walking routine for VTE prophylaxis. Acknowledged once again for being tobacco free, since his brother's a year ago. Full Code Status. documented in this encounterVan Mosaic Mall Phone: 1(975) 515-710702-09-2024 Miscellaneous Notes* Addendum Note - Miguel Kessler MD - 10/29/2023 8:15 AM ESTAddended by: MIGUEL KESSLER on: 10/29/2023 08:52 PM Modules accepted: Orders documented in this encounterCheney Mosaic Mall Phone: 1(378) 386-441502-09-2024 Note* Addendum Note - Miguel Kessler MD - 10/29/2023 8:15 AM ESTAddended by: MIGUEL KESSLER on: 10/29/2023 08:52 PM Modules accepted: Orders [place] Phone: [phone] NotePROCEDURE: XR CHEST (2 VW) CLINICAL INFORMATION: cough. [...] Chaparrita Camp MD 08/24/23 Edited Result - [facility]10-13-2023 History of Present illness Narrative* Miguel Kessler MD - 07/02/2023 8:30 AM EDT Patient ID: Sana Stanley is a 68 y.o. male CC: [facility] visit for COVID-19 infection, resolving, Essential [...] the infection from the facility the nurse senior assistant manager/director is reporting. Patient reports no and patient deny any symptoms at rest or with modest exertion of uncontrolled hypertension, hypotension, decompensated COPD as noted,.symptoms or signs of decompensated Parkinson'sdisease,any recent or remote seizures or reported seizure, [...] and has grandchildren, chronic tobacco user, former heavyalcohol user, on disability for mental health FAMHx: [...] vaccination, including booster. 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 Follow-up with Neurology for Parkinson's management. Becoming current with dental and ocular care visits as clinically indicated. Walking routine for VTE prophylaxis. Praised once again for being tobacco free, since his brother's a year ago. Full Code Status. documented in this encounterCheney [place] bretta[place]ro[place] Phone: [phone]) 383-255609-23-2023 Emergency department Note* Lars Head RN - 06/12/2023 5:40 PM EDT [facility] arrives for pt. Original pink slipped sent with [facility]. ETA called to clear passage. [place] Phone: [phone] Emergency department Note* Lars Head RN - 06/12/2023 5:40 PM EDT [facility] arrives for pt. Original pink slipped sent with [facility]. ETA called to clear passage. * Matt Caldwell MD - 06/12/2023 2:42 PM EDT Emergency Department Report [facility] Service Date:.06/12/23 PCP: [...] and he was seen and evaluated at [facility] yesterday and was medically cleared and he was supposed to be admitted to the geriatric psych unit but he was discharged and sent to the residential. As per the nursing admin, patient is getting more verbally aggressive toward the nurses , at times he is more confused and agitated and they have talked with the [facility] who had requested to provide a pink slipped for the patient and patient was sent to the ER for medical clearance and a pink slipped so thathe can be placed in a geriatric psych [...] patient is more calm and comfortable and isable to answer most of the questions Vital [...] male was transferred to ER from the residential for the symptoms of confusion agitation and aggression and getting verbally aggressive against the medical staff in the residential and patient has symptoms of acute psychosis and will require a admission to the geriatric psych unit and after full evaluation based on his lab work done yesterday, patient was medically cleared and hewas pink slipped so that he can be [...] above information. . Matt Caldwell MD 06/12/23 [id number] Matt Caldwell MD 06/12/23 1510 documented in this encounterSelect [facility]ty Hospital Work Phone: [phone]) 957-613409-23-2023 Physician Emergency department Note* Matt Caldwell MD - 06/12/2023 2:42 PM EDT Emergency Department Report [facility] Service Date:.06/12/23 PCP: [...] and he was seen and evaluated at [facility] yesterday and was medically cleared and he was supposed to be admitted to the geriatric psych unit but he was discharged and sent to the residential. As per the nursing admin, patient is getting more verbally aggressive toward the nurses , at times he is more confused and agitated and they have talked with the [facility] who had requested to provide a pink slipped for the patient and patient was sent to the ER for medical clearance and a pink slipped so thathe can be placed in a geriatric psych [...] patient is more calm and comfortable and isable to answer most of the questions Vital [...] male was transferred to ER from the residential for the symptoms of confusion agitation and aggression and getting verbally aggressive against the medical staff in the residential and patient has symptoms of acute psychosis and will require a admission to the geriatric psych unit and after full evaluation based on his lab work done yesterday, patient was medically cleared and hewas pink slipped so that he can be [...] above information. . Matt Caldwell MD 06/12/23 7951 aMtt Caldwell MD 06/12/23 5830 [employer] Phone: [phone]) 782-694009-22-2023 Hospital Discharge instructions* Discharge Instructions* Vahe Ribeiro MD - 06/11/2023 3:09 PM EDT Come back to the emergency department if severe chest pain, severe shortness of breath, persistenceof fever, intractable vomiting, severe dizziness or lightheadedness, fainting. Schedule an appointment with your primary care physician as recommended previously. Read the documents attached. * Attachments The following attachments cannot be sent through Care Everywhere. * Parkinson's Disease (Spanish) documented in this encounterBON [facility]23 NotePROCEDURE: XR CHEST (2 VW) CLINICAL INFORMATION: cough COMPARISON: Chest radiograph 09/18/2022 TECHNIQUE: AP upright and lateral views of the chest performed. FINDINGS: No focal pulmonary consolidation. Cardiac silhouette is mildly enlarged. No pleural effusion. No pneumothorax. No acute bony abnormality. Age indeterminate compression deformities seen at T11, T12, and L1. The bones are demineralized. Degenerative changes of the thoracic spine. [id number] NotePROCEDURE: XR CHEST (2 VW) CLINICAL INFORMATION: cough [...] Signed by: Milla Dinh MD 06/11/23 Final resultSMid[facility]09-[facility]-2023 History of Present illness Narrative* Miguel Kessler MD - 05/28/2023 8:00 AM EDT Patient ID: Sana Stanley is a 67 y.o. male CC: [facility] visit for Headaches, Presently Controlled Beta-Екатерина [...] and has grandchildren, chronic tobacco user, former heavyalcohol user, on disability for mental health FAMHx: [...] vaccination, including booster. 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 Follow-up with Neurology for Parkinson's management. Becoming current with dental and ocular care visits as clinically indicated. Walking routine for VTE prophylaxis. Praised once again for being tobacco free, since his brother's a year ago. Full Code Status. documented in this encounterVan Mosaic Mall Phone: [phone]) 385-412407-14-2023 History of Present illness Narrative* Miguel Kessler MD - 04/02/2023 8:15 AM EDT Patient ID: Sana Stanley is a 67 y.o. male CC: [facility] visit for Headaches, Presently Controlled Beta-Екатерина [...] to the right posterior superior aspect of theshoulder joint. Denies associated discomfort. Denies any trauma [...] and has grandchildren, chronic tobacco user, former heavyalcohol user, on disability for mental health FAMHx: [...] of the right posterior superior aspect of rightshoulder noted. Some associated crepitus. Nontender. Firm mass. [...] vaccination, including booster. 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 Follow-up with Neurology for Parkinson's management. Becoming current with dental and ocular care visits as clinically indicated. Walking routine for VTE prophylaxis. Full Code Status. documented in this encounterCheney Mosaic Mall Phone: [phone] Miscellaneous Notes* Addendum Note - Miguel Kessler MD - 04/02/2023 8:15 AM EDTAddended by: MIGUEL KESSLER on: 04/02/2023 08:47 PM Modules accepted: Orders documented in this encounterCheney Mosaic Mall Phone: [phone]) [phone] Note* Addendum Note - Miguel Kessler MD - 04/02/2023 8:15 AM EDTAddended by: MIGUEL KESSLER on: 04/02/2023 08:47 PM Modules accepted: Orders [employer] Phone: [phone]) [phone] History of Present illness Narrative* Miguel Kessler MD - 02/26/2023 8:15 AM EDT Patient ID: Sana Stanley is a 67 y.o. male CC: [facility] visit for Episodic Dizziness, Most Currently Today, Accompanied By Lethargy, Essential Hypertension, COPD, Parkinson's disease, Seizure Disorder, GERD, Essential Tremor, MildCognitive Impairment, Alcohol Use Disorder, Severe, In Sustained [...] infectious symptoms. Reports medication adherence. Denies medication in tolerances. Denies any recent falls. Other than as described, nursing staff reports no and patient denies any symptoms at rest or with modest exertion of uncontrolled hypertension, hypotension, decompensated COPD as noted,.symptoms or signs of decompensated Parkinson's disease,any recent or remote seizures or reported seizure, any warn ing symptoms of GERD or any recent or [...] and has grandchildren, chronic tobacco user, former heavyalcohol user, on disability for mental health FAMHx: [...] not opening eyes upon command, no tremors orasterixis Psychiatric: Depressed mood with appropriate affect. LABS, [...] vaccination, including booster. 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 Follow-up with Neurology for Parkinson's management. Becoming current with dental and ocular care visits as clinically indicated. Walking routine for VTE prophylaxis. Full Code Status. documented in this encounterCheney Mosaic Mall Phone: [phone]) [phone] Hospital Discharge instructions* Discharge Instructions* Wallace Garcia DO - 02/24/2023 5:56 PM EDT Patient had a fall resulting in a hip contusion. There is also arthritis of the hip. Patient has been given pain medication and a walker he is instructed to use those as prescribed. He is instructed to follow-up with the primary care physician as well as the orthopedic [place], take all medications as prescribed return to the emergency room immediately for any new or worsening complaints. * Attachments The following attachments cannot be sent through Care Everywhere. * Arthritis (Spanish) * Joint Pain (Spanish) * Hip Pain (Spanish) documented in this encounterBON [employer] Phone: [phone] NotePROCEDURE: CT HIP RIGHT WO CONTRAST CLINICAL INFORMATION: Fall, pain, findings of aseptic necrosis indeterminant for fracture . COMPARISON: Plain radiographs obtained on the same day.. TECHNIQUE: Axial thin section CT images were obtained through the right hip. No contrast was given.Coronal and sagittal reconstructions were obtained. All CT [...] the sacroiliac joint. There is vascular calcification. Thereis a small right inguinal hernia containing fat [facility] [id number] NotePROCEDURE: XR HIP 2-3 VW W PELVIS RIGHT [...] fracture of the right inferior pubic ramus [facility] [id number] Hospital Discharge instructions* Discharge Instructions* Francisco J Cole MD - 02/19/2023 8:38 PM EDT No clear etiology of abdominal pain, but your labs and CT abdomen and pelvis are reassuring. Recommend taking xyan-gna-niqivff Tylenol or ibuprofen for pain. PCP follow-up in 3 days. * Attachments The following attachments cannot be sent through Care Everywhere. * Abdominal Pain (Spanish) documented in this encounterBON [facility] [employer] Phone: 1(730) 517-710506-02-2023 NotePROCEDURE: CT ABDOMEN PELVIS W IV CONTRAST CLINICAL [...] atherosclerotic calcification in the abdominal aorta and iliacarteries.. There is no adenopathy. The urinary bladder is normal. The prostate gland measures 4 x 3.2 cm in size. There is no pelvic free fluid. The colon is within normal limits. There is no adenopathy. There is an old compression deformity along the superior endplate of L1 with 30% compression.. [facility] [id number] History of Present illness Narrative* Miguel Kessler MD - 10/02/2022 8:00 AM EST Patient ID: Sana Stanley is a 67 y.o. male CC: [facility] visit for Recent Influenza Infection, COPD exacerbation, and Admission, with continued oxygen requirement Essential Hypertension, COPD, Parkinson's disease, Seizure Disorder,GERD, Essential Tremor, Mild Cognitive Impairment, Alcohol Use Disorder, Severe, In Sustained Remission, BPH, Schizoaffective Disorder, Bipolar Type, Diverticulosis, history of unsteady gait,Rolon's Palsy, resolved HPI: Patient reports that he still feels weak. 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 Appetite is coming back. Breathing is [...] and has grandchildren, chronic tobacco user, former heavyalcohol user, on disability for mental health FAMHx: [...] visits and psychiatric medication regimen the maintenance ofhis emotional health. Influenza, pneumococcal, recombinant zoster vaccinations. As noted, current with the SARS-CoV-2 vaccination, including booster. 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 Follow-up with Neurology for Parkinson's management. Becoming current with dental and ocular care visits as clinically indicated. Walking routine for VTE prophylaxis. Presently no interest in resuming tobacco for which patient was encouraged not to resume tobacco given his vulnerability with COPD and recent concomitant infection. Tobacco cessation counseling time 5 minutes. Full Code Status. documented in this encounterVan Mosaic Mall Phone: [phone] Hospital Discharge instructions* Discharge Instr - Activity* Tracey Smith RN - 09/23/2022 2:04 PM EST Up with assistance prn. * Discharge Instr - Diet* Tracey Smith RN - 09/23/2022 2:04 PM [...] most local grocery stores, pharmacies, and chain [employer]-stores. If you have any questions about your diet or nutrition, call the hospital and ask for the dietitian 4 carb diet * Discharge Instr - MICHELLE* Traceykyle Smith, RN - 09/23/2022 2:04 PM EST Continuity of Care Form Patient Name: Sana Stanley : 1955 Admit date: 09/18/2022 Discharge date: Code Status Order: Full Code Advance Directives: Admitting Physician: Alice Rollins, JENNIFER - FORESTRY CONSULTANT PCP: Piyush Keane MD Discharging Nurse: Discharging Hospital Unit/Room#: 8A-11/011-A Discharging Unit Phone Number: Emergency Contact: Extended Emergency Contact Information Primary Emergency Contact: Lewis Stanley Address: [address] [place] [address] Relation: Brother/Sister Past Surgical History: Past Surgical History: Procedure Laterality Date CYST REMOVAL LEG SURGERY Right Immunization History: Immunization History Administered Date(s) Administered COVID-19, MODERNA BLUE border, Primary or Immunocompromised, (age 12y+), IM, 100 mcg/0.5mL 11/19/2020, 12/17/2020 Active Problems: Patient Active Problem List Diagnosis Code Benign prostatic hyperplasia without lower urinary tract symptoms N40.0 COPD, mild ([facility]) J44.9 Hypertensive disorder I10 Essential tremor G25.0 Gastroesophageal reflux disease without esophagitis K21.9 Mild cognitive impairment G31.84 Parkinson's disease ([facility]) G20 Schizoaffective disorder, bipolar type ([facility]) F25.0 Seizure disorder ([facility]) G40.909 Severe alcohol use disorder, in sustained remission ([facility]) F10.21 Acute hypoxemic respiratory failure ([facility]) J96.01 Cigarette nicotine dependence, uncomplicated F17.210 [...] (106.6 kg) Mental Status: {IP PT MENTAL STATUS:} IV Access: { MICHELLE IV ACCESS:517217208} Nursing Mobility/ADLs: Walking {CHP DME ADLs:392847086} Transfer {CHP DME ADLs:130157217} Bathing {CHP DME ADLs:099388320} Dressing {CHP DME ADLs:019189454} Toileting {CHP DME ADLs:131533280} Feeding {CHP DME ADLs:756649485} Application Development Director {CHP DME ADLs:717124212} Med Delivery { MICHELLE MED Delivery:517770113} Wound Care Documentation and Therapy: Elimination: Continence: Bowel: {YES / NO:} Bladder: {YES / NO:} Urinary Catheter: {Urinary Catheter:279666975} Colostomy/Ileostomy/Ileal Conduit: {YES / NO:} Date of Last BM: No intake or output data in the 24 hours ending 09/23/22 1404 No intake/output data recorded. Safety Concerns: { MICHELLE Safety Concerns:704546298} Impairments/Disabilities: {[facility] Impairments/Disabilities:968062558} Nutrition Therapy: Current Nutrition Therapy: { MICHELLE Diet List:517059566} Routes of Feeding: {CHP DME Other Feedings:862306452} Liquids: {L[employer] liquid thickness:45429} Daily Fluid Restriction: {CHP DME Yes amt example:731863848} Last Modified Barium Swallow with Video (Video Swallowing Test): {Done Not Done Date:} Treatments at the Time of Hospital Discharge: Respiratory Treatments: Oxygen Therapy: {Therapy; copd oxygen:52166} Ventilator: {[facility] Vent List:631822195} Rehab Therapies: {THERAPEUTIC INTERVENTION:8246589267} Weight Bearing Status/Restrictions: {MH CC Weight Bearin} Other Medical Equipment (for information only, NOT a DME order): {EQUIPMENT:444318756} Other Treatments: Patient's personal belongings (please select all that are sent with patient): {CHP DME Belongings:766603691} RN SIGNATURE: {Esignature:993442290} CASE MANAGEMENT/SOCIAL WORK SECTION Inpatient Status Date: Readmission Risk Assessment Score: Readmission Risk Risk of Unplanned Readmission: 16 Discharging to Facility/ Agency Name: Address: Phone: Fax: Dialysis Facility (if applicable) Name: Address: Dialysis Schedule: Phone: Fax: Occ Med Physician/Leasing Assistant signature: {Esignature:466930407} PHYSICIAN SECTION Prognosis: {Prognosis:4722351415} Condition at Discharge: { Patient Condition:401395403} Rehab Potential (if transferring to Rehab): {Prognosis:9931560170} Recommended Labs or Other Treatments After Discharge: Physician Certification: I certify the above information and transfer of Sana Stanley is necessary for the continuing treatment of the diagnosis listed and that he requires {Admit to Appropriate Level of Care:35313} for {GREATER/LESS:853617247} 30 days. Update Admission H&P: {CHP DME Changes in HandP:040259705} PHYSICIAN SIGNATURE: {Esignature:710216240} documented in this encounterBON [employer] Phone: 1([phone]) [phone] History of Present illness Narrative* Anjana Ozuna RCP - 09/23/2022 10:20 AM EST A home oxygen evaluation has been completed. [...] on room air at rest. Patients SpO2 wasbelow 89% and qualified for home oxygen. Oxygen [...] see policy and procedure for possible qualifications. * Alice Rollins APRN - FORESTRY CONSULTANT - 09/22/2022 7:15 AM EST Images from the original note were not included. Hospitalist Progress Note Patient: Sana Stanley Unit/Bed:[address] [place] [address] Date of : 1955 Acct: [id number] PCP: Piyush Keane MD Date of Admission: 09/18/2022 Assessment/Plan: Acute hypoxic respiratory failure secondary to influenza A--Tamiflu 09/19; on 3 L of oxygen knfbldi91% and will attempt to wean again today, [...] [] Rehab [] Psych [] SNF [] Senior Living Care Facility [] Other- Chief Complaint: Shortness of breath Hospital Course: Per H&P dated 09/18/2022: Patient presents to the ED with shortness of breathand cough. The patient had initially stated in [...] he stopped smoking a year ago; states heis eating well Medications: Reviewed Infusion Medications sodium [...] Intake/Output Summary (Last 24 hours) at 09/22/2022 0795 Last data filed at 09/21/2022 0908 Gross [...] without any focal sensory/motor deficits. Cranial nerves: II-XIIintact, grossly non-focal. Psychiatric: Alert and oriented, thought [...] lower lungs. Linear opacity within the left lowerlung. No consolidative process. Borderline heart size. Tortuous [...] (HCC) [F25.0] 01/08/2017 Essential tremor [G25.0] 01/08/2017 * JENNIFER Knight CNP - 09/21/2022 7:34 AM EST Images from the original note were not included. Hospitalist Progress Note Patient: Sana Stanley Unit/Bed:[address] [place] [address] Date of : 1955 Acct: [id number] PCP: Piyush Keane MD Date of Admission: 09/18/2022 Assessment/Plan: Acute hypoxic respiratory failure secondary to influenza A--Tamiflu 09/19; on 2 L of oxygen % and will attempt to wean again today, [...] [] Rehab [] Psych [] SNF [] [facility] Care Facility [] Other- Chief Complaint: Shortness of breath Hospital Course: Per H&P dated 09/18/2022: Patient presents to the ED with shortness of breathand cough. The patient had initially stated in [...] data in the 24 hours ending 09/21/22 0784 Diet: ADULT DIET; Regular; 4 carb choices [...] without any focal sensory/motor deficits. Cranial nerves: II-XIIintact, grossly non-focal. Psychiatric: Alert and oriented, thought [...] lower lungs. Linear opacity within the left lowerlung. No consolidative process. Borderline heart size. Tortuous [...] (HCC) [F25.0] 01/08/2017 Essential tremor [G25.0] 01/08/2017 * JENNIFER Knight CNP - 09/20/2022 8:10 AM EST Images from the original note were not included. Hospitalist Progress Note Patient: Sana Stanley [facility] Date of : 1955 Acct: [id number] PCP: Piyush Keane MD Date of Admission: 09/18/2022 Assessment/Plan: Acute hypoxic respiratory failure secondary to influenza A--Tamiflu 09/19; on 4 L of oxygen kkjymgq12% and will attempt to wean, incentive spirometry [...] [] Rehab [] Psych [] SNF [] [facility] [] Other- Chief Complaint: Shortness of breath Hospital Course: Per H&P dated 09/18/2022: Patient presents to the ED with shortness of breathand cough. The patient had initially stated in [...] without any focal sensory/motor deficits. Cranial nerves: II-XIIintact, grossly non-focal. Psychiatric: Alert and oriented, thought [...] lower lungs. Linear opacity within the left lowerlung. No consolidative process. Borderline heart size. Tortuous [...] (HCC) [F25.0] 01/08/2017 Essential tremor [G25.0] 01/08/2017 * JENNIFER Knight CNP - 09/19/2022 7:47 AM EST Images from the original note were not included. Hospitalist Progress Note Patient: Sana Stanley Unit/Bed:8A-011-A Date of : 1955 Acct: [id number] PCP: Piyush Keane MD Date of Admission: 09/18/2022 Assessment/Plan: Acute hypoxic respiratory failure secondary to influenza A--Tamiflu 09/19; on 3 L of oxygen kcntdii53% and will attempt to wean, add incentive [...] [] Rehab [] Psych [] SNF [] Senior Living Care Facility [] Other- Chief Complaint: Shortness of breath Hospital Course: Per H&P dated 09/18/2022: Patient presents to the ED with shortness of breathand cough. The patient had initially stated in [...] Intake/Output Summary (Last 24 hours) at 09/19/2022 0786 Last data filed at 09/19/2022 0501 Gross per 24 hour Intake -- Output 925 ml Net -925 ml Diet: ADULT DIET; Regular; 4 carb choices (60 gm/meal); Low Fat/Low Chol/High Fiber/DB Exam: BP (!) 166/84 Pulse (!) 109 Temp 98.4 F (36.9 C) (Oral) Resp 22 Ht 5' 7 (1.702 m) Wt 235lb (106.6 kg) SpO2 95% BMI 36.81 kg/m [...] without any focal sensory/motor deficits. Cranial nerves: II-XIIintact, grossly non-focal. Psychiatric: Alert and oriented, thought [...] lower lungs. Linear opacity within the left lowerlung. No consolidative process. Borderline heart size. Tortuous [...] (HCC) [F25.0] 01/08/2017 Essential tremor [G25.0] 01/08/2017 * Sharon Emerson [facility] - 09/19/2022 12:13 AM EST Images from the original note were not included. Pharmacist Review and Automatic Dose Adjustment of Prophylactic Enoxaparin *Review reason for admission/hospital problem list* The reviewing pharmacist has made an adjustment to the ordered enoxaparin dose or converted to UFH per the approved [facility] protocol and table as identified below. [...] RPH 09/19/2022, 12:13 AM documented in this encounterBON [facility] [employer] Phone: 1([phone]) 360-591901-04-2023 NotePROCEDURE: CTA CHEST W WO CONTRAST CLINICAL INFORMATION: [...] limits visualization of the distal pulmonary arterial branches.No central pulmonary arterial filling defect is identified. [...] opacities are observed. Subpleural calcified right upper lobepulmonary nodules measure 2 to 3 mm (series [...] 235) likely corresponds to a sebaceous cyst. [facility] [id number] History of Present illness Narrative* Miguel Kessler MD - 07/03/2022 8:00 AM EDT Patient ID: Sana Stanley is a 67 y.o. male CC: [facility] visit for Essential Hypertension, COPD, Parkinson's [...] was residing. Patient has moved to this facilityto get away from the experience. Liking the [...] care, particularly with the recent loss of hisbrother. No interest with tobacco wean or cessation [...] and has grandchildren, chronic tobacco user, former heavyalcohol user, on disability for mental health FAMHx: [...] visits and psychiatric medication regimen the maintenance ofhis emotional health. Influenza, pneumococcal, recombinant zoster vaccinations. As noted, current with the SARS-CoV-2 vaccination, including booster. 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 Follow-up with Neurology for Parkinson's management. Becoming current with dental and ocular care visits as clinically indicated. Walking routine for VTE prophylaxis. No interest with nicotine replacement therapy, tobacco wean/cessation recommendations benefits of tobacco cessation and risks of continued tobacco use once again discussed. Tobacco cessation counseling time 5 minutes. Full code status. documented in this encounterVan Mosaic Mall Phone: 1(828) 669-595803-11-2022 History of Present illness Narrative* Miguel Kessler MD - 11/28/2021 9:45 AM EST Patient ID: Sana Stanley is a 66 y.o. male CC: [facility] Facility visit For Recent Rolon's Palsy, resolving Essential Hypertension, COPD, Parkinson's disease, Seizure Disorder, GERD, Essential Tremor, Mild Cognitive Impairment,Alcohol Use Disorder, Severe, In Sustained Remission, BPH, Schizoaffective Disorder, Bipolar Type, D iverticulosis, history of unsteady gait HPI: Patient reports that the right side of his face is feeling better and looking better. Recently seenin ER on October 31 for Rolon's palsy. [...] and has grandchildren, chronic tobacco user, former heavyalcohol user, on disability for mental health FAMHx: [...] visits and psychiatric medication regimen the maintenance ofhis emotional health. Influenza, pneumococcal, recombinant zoster vaccinations. As noted, current with the SARS-CoV-2 vaccination, including booster. 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 Follow-up with Neurology for Parkinson's management. Becoming current with dental and ocular care visits as clinically indicated. Walking routine for VTE prophylaxis. Declines nicotine replacement therapy, tobacco wean/cessation recommendations benefits of tobacco cessation and risks of continued tobacco use once again discussed. Full code status. documented in this encounterVan Regional Medical [id number] History of Present illness Narrative* Miguel Kessler MD - 09/26/2021 9:00 AM EST Patient ID: Sana Stanley is a 66 y.o. male CC: [facility] visit For Essential Hypertension, COPD, Parkinson's disease,Seizure Disorder, GERD, Essential Tremor, Mild Cognitive Impairment, [...] and has grandchildren, chronic tobacco user, former heavyalcohol user, on disability for mental health FAMHx: [...] visits and psychiatric medication regimen the maintenance ofhis emotional health. Influenza, pneumococcal, recombinant zoster vaccinations. As noted, current with the SARS-CoV-2 vaccination, including booster. 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 Follow-up with Neurology for Parkinson's management. Becoming current with dental and ocular care visits as clinically indicated. Walking routine for VTE prophylaxis. Not interested once again in nicotine replacement therapy, tobacco wean/cessation recommendations benefits of tobacco cessation and risks of continued tobacco use once again discussed. Full code status. documented in this encounterVan Red [id number] History of Present illness Narrative* Miguel Kessler MD - 05/02/2021 9:15 AM EDT Patient ID: Sana Stanley is a 65 y.o. male CC: [facility] History And Physical For Essential Hypertension, COPD, Parkinson's disease, Seizure Disorder, GERD, Essential Tremor, Mild Cognitive Impairment, Alcohol Use Disorder, Severe, In Sustained Remission, BPH, Schizoaffective Disorder, Bipolar Type, Diverticulosis Chief Complaint Patient presents with Hypertension Chronic Obstructive Pulmonary Disease Parkinson's Disease HPI: 65-year-old gentleman with comorbidities as noted recently moved here from a halfway. Reports medication adherence, facilitated by nursing staff. Denies medication intolerances. Added that his brother came with him from the halfway. Patient reports that he has 2 sons with whom he has not beenin touch with for several years. Reported that [...] and has grandchildren, chronic tobacco user, former heavyalcohol user, on disability for mental health FAMHx: [...] management discussed with patient. Maintain: Angiotensin receptor екатеирна therapy for hypertension management. As needed albuterol [...] visits and psychiatric medication regimen the maintenance ofhis emotional health. Influenza, pneumococcal, recombinant zoster vaccinations. As noted, current with the SARS-CoV-2 vaccination. 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 Follow-up with neurology for [...] provide his medical care. [facility] Diagnosis COPD, mild- Primary Chronic airway obstruction, [...] disorder, unspecified condition [facility] Diagnosis Rolon's palsy- Primary COPD, [...] Abnormality of gait [facility]* Diagnosis Essential hypertension- Primary Unspecified [...] disorder, unspecified condition [facility] Diagnosis Grief reaction- Primary Adjustment disorder [...] disorder, unspecified condition documented in this encounter [place] [facility] Phone: Evaluation note* Diagnosis Acute hypoxemic respiratory failure (HCC)- Primary COPD exacerbation (HCC) Obstructive chronic bronchitis with exacerbation Influenza with respiratory manifestation other than pneumonia Influenza with other respiratory manifestations Acute on chronic respiratory failure with hypoxia (HCC) Cigarette nicotine dependence, uncomplicated Tobacco use disorder COPD, mild (HCC) Chronic airway obstruction, not elsewhere classified Schizoaffective disorder, bipolar type ([facility]) Schizoaffective disorder, unspecified condition Essential tremor Essential and other specified forms of tremor documented in this encounter [employer] Phone: evaluation note* Diagnosis Influenza A H1N1 [...] urinary tract symptoms documented in this encounter [employer] Phone: Evaluation note* Diagnosis Feared complaint without diagnosis- Primary Person with feared complaint in whom no diagnosis was made Essential hypertension Unspecified essential hypertension documented in this encounter [employer] Phone: evalllbomh note* Diagnosis Nonspecific abdominal pain- Primary documented in this encounter [employer] Phone: evaluation note* Diagnosis Lethargy- Primary Other [...] Tobacco use disorder documented in this encounter [employer] Phone: Evaluation note* Diagnosis Acute pain of right hip- Primary Pain in joint, pelvic region and thigh Osteoarthritis of right hip, unspecified osteoarthritis type documented in this encounter [employer] Phone: evallukend note* Diagnosis Intractable chronic migraine without aura [...] in sustained remission documented in this encounter [employer] Phone: Evaluation note* Diagnosis Hypertensive heart disease [...] in sustained remission documented in this encounter [employer] Phone: Evaluation note* Diagnosis Parkinson disease (HCC)- Primary Paralysis agitans General weakness Other malaise and fatigue [facility] Diagnosis Acute psychosis- Primary Unspecified psychosis documented in this encounter [employer] Phone: Evaluation note* Diagnosis Hypertensive heart disease [...] impairment, so stated documented in this encounter [employer] Phone: Evaluation note* Diagnosis Hypertensive heart disease [...] impairment, so stated documented in this encounter [employer] Phone: Evaluation note* Diagnosis Chest pain, unspecified type- Primary [facility] assessment information available [facility] Work Phone: Evaluation note* Diagnosis Chronic obstructive pulmonary disease, unspecified COPD type (CMS-HCC)- Primary Parkinson's disease, unspecified whether dyskinesia present, unspecified whether manifestations fluctuate (CMS-HCC) Mild cognitive impairment Mild cognitive impairment, so stated Wernicke's encephalopathy Other and unspecified manifestations of thiamine deficiency documented in this encounter [facility]* Diagnosis Parkinson's disease, unspecified whether dyskinesia present, unspecified whether manifestations fluctuate (CMS-HCC)- Primary Wernicke's encephalopathy Other and unspecified manifestations of thiamine deficiency Chronic obstructive pulmonary disease, unspecified COPD type (CMS-HCC) Extrapyramidal and movement disorder, unspecified documented in this encounter [facility]* Diagnosis Parkinson's disease, unspecified whether dyskinesia present, unspecified whether manifestations fluctuate (CMS-HCC)- Primary Schizoaffective disorder, unspecified type (CMS-HCC) Wernicke's encephalopathy Other and unspecified manifestations of thiamine deficiency Chronic obstructive pulmonary disease, unspecified COPD type (CMS-HCC) documented in this encounter [facility]* Diagnosis Wernicke's encephalopathy- Primary Other and unspecified manifestations of thiamine deficiency Chronic obstructive pulmonary disease, unspecified COPD type (CMS-HCC) Parkinson's disease, unspecified whether dyskinesia present, unspecified whether manifestations fluctuate (CMS-HCC) documented in this encounter [facility]* Diagnosis Schizoaffective disorder, bipolar type (CMS-HCC)- Primary Schizoaffective disorder, unspecified condition Wernicke's encephalopathy Other and unspecified manifestations of thiamine deficiency Chronic obstructive pulmonary disease, unspecified COPD type (CMS-HCC) Parkinson's disease, unspecified whether dyskinesia present, unspecified whether manifestations fluctuate (CMS-HCC) Nicotine dependence, cigarettes, uncomplicated Extrapyramidal and movement disorder, unspecified Iliotibial band syndrome, unspecified laterality Stage 2 chronic kidney disease due to benign hypertension Class 1 obesity due to excess calories with serious comorbidity in adult, unspecified BMI Convulsions, unspecified convulsion type (CMS-HCC) Hyperplasia of prostate without lower urinary tract symptoms (LUTS) Unspecified hyperplasia of prostate without urinary obstruction and other lower urinary tract symptoms (LUTS) White matter disease Gastroesophageal reflux disease, unspecified whether esophagitis present Mild cognitive impairment Mild cognitive impairment, so stated [facility]* Diagnosis Wernicke's encephalopathy- Primary Other and unspecified manifestations of thiamine deficiency Chronic obstructive pulmonary disease, unspecified COPD type ([facility]) Parkinson's disease, unspecified whether dyskinesia present, unspecified whether manifestations fluctuate ([facility]) Stage 2 chronic kidney disease due to benign hypertension Mild cognitive impairment Mild cognitive impairment, so stated documented [facility] this [facility]* Diagnosis Wernicke's encephalopathy- Primary Other and unspecified manifestations of thiamine deficiency Parkinson's disease, unspecified whether dyskinesia present, unspecified whether manifestations fluctuate ([facility]) BPH with lower urinary tract symptoms without urinary obstruction [facility] this [facility]* Diagnosis Wernicke's encephalopathy- Primary Other and 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, unspecified Parkinson's disease, unspecified whether dyskinesia present, unspecified whether manifestations fluctuate ([facility]) documented in this encounter [facility]* Diagnosis Parkinson's disease, unspecified whether dyskinesia present, unspecified whether manifestations fluctuate ([facility])- Primary Mild cognitive impairment Mild cognitive impairment, so stated Schizoaffective disorder, unspecified type ([facility]) Wernicke's encephalopathy Other and unspecified manifestations of thiamine deficiency documented in this encounter [facility]* Diagnosis Wernicke's encephalopathy- Primary Other and unspecified manifestations of thiamine deficiency Parkinson's disease, unspecified whether dyskinesia present, unspecified whether manifestations fluctuate ([facility]) Chronic obstructive pulmonary disease, unspecified COPD type ([facility]) Stage 2 chronic kidney disease due to benign hypertension [facility] this [facility] Diagnosis Chronic obstructive pulmonary disease, unspecified COPD type ([facility])- Primary Protein-calorie malnutrition, unspecified severity ([facility]) Parkinson's disease, unspecified whether dyskinesia present, unspecified whether manifestations fluctuate ([facility]) Mild cognitive impairment Mild cognitive impairment, so stated [facility] encounter [facility]* Diagnosis Parkinson's disease, unspecified whether dyskinesia present, unspecified whether manifestations fluctuate (CMS-HCC)- Primary Wernicke's encephalopathy Other and unspecified manifestations of thiamine deficiency Mild cognitive impairment Mild cognitive impairment, so stated Chronic obstructive pulmonary disease, unspecified COPD type (CMS-HCC) Protein-calorie malnutrition, unspecified severity (CMS-HCC) documented in this encounter [facility]* Diagnosis Wernicke's encephalopathy- Primary Other and 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, unspecified Stage 2 chronic kidney disease due to benign hypertension Schizoaffective disorder, unspecified type (CMS-HCC) documented in this encounter [facility]* Diagnosis Parkinson's disease, unspecified whether dyskinesia present, unspecified whether manifestations fluctuate (CMS-HCC)- Primary Chronic obstructive pulmonary disease, unspecified COPD type (CMS-HCC) Wernicke's encephalopathy Other and unspecified manifestations of thiamine deficiency Schizoaffective disorder, unspecified type ([facility]) documented in this encounter [facility]* Diagnosis Chronic obstructive pulmonary disease, unspecified COPD type (CMS-HCC)- Primary Wernicke's encephalopathy Other and unspecified manifestations of thiamine deficiency Parkinson's disease, unspecified whether dyskinesia present, unspecified whether manifestations fluctuate (CMS-HCC) documented in this encounter [facility]* Diagnosis Wernicke's encephalopathy- Primary Other and unspecified manifestations of thiamine deficiency Parkinson's disease, unspecified whether dyskinesia present, unspecified whether manifestations fluctuate (CMS-HCC) Chronic obstructive pulmonary disease, unspecified COPD type ([facility]) documented in this encounter [facility]* Diagnosis Wernicke's encephalopathy- Primary Other and unspecified manifestations of thiamine deficiency Cognitive impairment Unspecified persistent mental disorders due to conditions classified elsewhere Schizoaffective disorder, unspecified type (CMS-HCC) Parkinson's disease, unspecified whether dyskinesia present, unspecified whether manifestations fluctuate (CMS-HCC) Chronic obstructive pulmonary disease, unspecified COPD type (CMS-HCC) documented in this encounter [facility]* Diagnosis Wernicke's encephalopathy- Primary Other and unspecified manifestations of thiamine deficiency Chronic obstructive pulmonary disease, unspecified COPD type (CMS-HCC) Protein-calorie malnutrition, unspecified severity [facility] Diagnosis Essential hypertension- Primary Unspecified essential hypertension Parkinson's disease, unspecified whether dyskinesia present, unspecified whether manifestations fluctuate (CMS-HCC) Infected sebaceous cyst Sebaceous cyst Right leg weakness Muscle weakness (generalized) Chronic obstructive pulmonary disease, unspecified COPD type ([facility]) documented in this encounter [facility] Dis[facility] instructions* Attachments The following attachments cannot be sent through Care Everywhere. * Diet: DASH (Spanish) * Hypertension: General Info (Spanish) documented in [facility] encounter[facility]ENTERTrack[facility] Work Phone: InstructionsNot on filedocumented in this encounter [facility] SystemInstructionsNot on filedocumented in this encounter [facility] SystemInstructionsNot on filedocumented in this encounter [facility] SystemInstructionsNot on filedocumented in this encounter [facility] SystemInstructionsNot on filedocumented in this encounter [facility] SystemInstructionsNot on filedocumented in this encounter [facility] SystemInstructionsNot on filedocumented in this encounter [facility] SystemReason for referral (narrative)* Consultation (Routine) - New RequestSpecialtyDiagnoses / ProceduresReferred By ContactReferred To ContactOrthopaedic Surgery Diagnoses Mass of joint of right shoulder Miguel Kessler MD [address] [place], [place] [address] [address] Roshan Gonzalez MD [address] [place] [address] Referral IDStatusReasonStart DateExpiration DateVisits RequestedVisits [id number] Request/ [facility] Phone: Reason for referral (narrative)* Consultation (Routine) - New RequestSpecialtyDiagnoses / ProceduresReferred By Contact Referred To Contact Diagnoses Parkinson's disease without dyskinesia or fluctuating manifestations Miguel Kessler MD [address] [place] [address] Beatriz Roche MD [address] [place] [address] Referral IDStatusReasonStart DateExpiration DateVisits RequestedVisits [id number] Request/ [facility] Work Phone: Summary Purpose Family History No Family History Records FoundNo Family History Records FoundNo Family History Records FoundNo Family History Records FoundNo Family History Records FoundNo Family History Records Found Advance Directives Code StatusDate ActivatedDate InactivatedCommentsDNRCC06/19/2022 8:38 AMThis order was created through External Result EntryCode StatusDate ActivatedDate InactivatedCommentsFull Code09/18/2022 8:33 PMTypeDate RecordedPatient RepresentativeExplanationACP-Do Not Resuscitate09/28/2022 1:42 PMCode StatusDate ActivatedDate InactivatedCommentsFull Code09/18/2022 8:33 PM09/23/2022 5:11 PMCode StatusDate ActivatedDate InactivatedCommentsFull Code09/18/2022 8:33 PM09/23/2022 5:11 PMCode StatusDate ActivatedDate InactivatedCommentsDNRCC06/19/2022 8:38 AM This order was created through External Result EntryTypeDate RecordedPatient RepresentativeExplanationACP-Do Not Resuscitate09/28/2022 1:42 PMCode StatusDate ActivatedDate InactivatedCommentsFull Code09/18/2022 8:33 PM09/23/2022 5:11 PM Additional Source Comments (unrecognized sect ion and content) No Status Records FoundNo Status Records FoundNo Status Records FoundNo Status Records FoundNo Status Records FoundNo Status Records Found INFORMATION SOURCE (unrecogn ized section and content) DATE CREATED AUTHOR 04/08/2020 [facility] DATE CREATED AUTHOR AUTHOR'S ORGANIZ ATION 10/31/2023 [facility] DATE CREATED AUTHOR AUTHOR'S ORGANIZ ATION 03/04/2024 [facility] DATE CREATED AUTHOR AUTHOR'S ORGANIZ ATION 03/17/2024 [facility] DATE CREATED AUTHOR AUTHOR'S ORGANIZ ATION 08/08/2024 [facility] DATE CREATED AUTHOR AUTHOR'S ORGANIZ ATION 10/01/2024 [facility] Reason for Visit (unrecogniz ed section and content) ReasonCommentsHypertensionReasonCommentsBell's PalsyReasonCommentsHypertension Chronic Obstructive Pulmonary DiseaseParkinson's DiseaseReasonComments TachycardiaShortness of BreathReasonCommentsFluReasonCommentsAbnormal LabHigh ammoniaReasonCommentsAbdominal PainDiarrheaReasonCommentsLethargyReasonComments Hip PainReasonCommentsHeadacheReasonCommentsFatigueReasonCommentsAltered mental statusReasonCommentsCOVID-19ReasonCommentsHypertensionReasonCommentsChest Pain SpecialtyDiagnoses / ProceduresReferred By ContactReferred To Contact Diagnoses Chest pain, unspecified type Shortness of breath Abnormal electrocardiogram (ECG) (EKG) Procedures Nuclear stress test with myocardial perfusion Mavis Gonzales MD [address] [place] [address] Referral IDStatusReasonStart DateExpiration DateVisits RequestedVisits [id number] Review Care Teams (unrecognized sec tion and content) Team MemberRelationshipSpecialtyStart DateEnd Date Miguel Kessler MD [address] [place] [address] PCP - GeneralInternal Kbkimonq19/14/22Team MemberRelationshipSpecialtyStart Date End Date Piyush Keane MD [address] [place] [address] PCP - General12/16/12Team MemberRelationshipSpecialtyStart DateEnd Date Miguel Kessler MD [address] [place] [address] PCP - GeneralInternal Gnhdjfth17/14/22Team MemberRelationshipSpecialtyStart Date End Date Piyush Keane MD [address] [email or web address] [facility] [place] [address] PCP - General12/16/12am MemberRelationshipSpecialtyStart DateEnd Date Piyush Keane MD [address] [facility] [place] [address] PCP - General12/16/12Team MemberRelationshipSpecialtyStart DateEnd Date Miguel Kessler MD [address] [place] [address] PCP - GeneralInternal Whmisesr90/14/22Team MemberRelationshipSpecialtyStart Date End Date Piyush Keane MD [address] [facility] [place] [address] PCP - General12/16/12am MemberRelationshipSpecialtyStart DateEnd Date Miguel Kessler MD [address] [place] [address] PCP - GeneralInternal Kpjrqkru13/14/22Team MemberRelationshipSpecialtyStart Date End Date Miguel Kessler MD [address] [place] [address] PCP - GeneralInternal Kidmahpm12/14/22Team MemberRelationshipSpecialtyStart Date End Date Piyush Keane MD [address] [email or web address] [facility] [place] [address] PCP - General12/16/12Team MemberRelationshipSpecialtyStart DateEnd Date Miguel Kessler MD [address] [facility] [address] [place] [address] PCP - GeneralInternal Asxeifgb76/14/22Team MemberRelationshipSpecialtyStart Date End Date Miguel Kessler MD [address] [facility] [address] [place] [address] PCP - GeneralInternal Ziztkflr05/14/22Team MemberRelationshipSpecialtyStart Date End Date Miguel Kessler MD [address] [facility] [address] [place] [address] PCP - GeneralInternal Geghrvmj89/14/22Team MemberRelationshipSpecialtyStart Date End Date Piyush Keane MD [address] [place] [address] PCP - General12/16/12 Team Status: Inactive Member Role Status Dates Gary Estevez DO Attending Provider Active Start: September 24, 2024 End: September 24, 2024Team MemberRelationshipSpecialtyStart DateEnd Date Piyush Keane MD (Fax) PCP - General02/05/16Team MemberRelationshipSpecialtyStart DateEnd Date Piyush Keane MD (Fax) PCP - General02/05/16Team MemberRelationshipSpecialtyStart DateEnd Date Piyush Keane MD [address] [place] [address] (Fax) PCP - General02/05/16Team MemberRelationshipSpecialtyStart DateEnd Date Piyush Keane MD [address] [place] [address] (Fax) PCP - General02/05/16Team MemberRelationshipSpecialtyStart DateEnd Date Piyush Keane MD [address] [place] [address] (Fax) PCP - General02/05/16Team MemberRelationshipSpecialtyStart DateEnd Date Piyush Keane MD [address] [place] [address] (Fax) PCP - General02/05/16Team MemberRelationshipSpecialtyStart DateEnd Date Piyush Keane MD (Fax) PCP - General02/05/16Team MemberRelationshipSpecialtyStart DateEnd Date Piyush Keane MD (Fax) PCP - General02/05/16 Ordered Prescriptions (unrec ognized section and content) PrescriptionSigDispensedRefillsStart DateEnd amoxicillin-clavulanate (AUGMENTIN) 875-125 MG per tablet Take 1 tablet by mouth 2 times daily for 7 days 14 tablet /07/2023 azithromycin (ZITHROMAX) 250 MG tablet Indications:COPD exacerbation (HCC)Take 1 tablet by mouth See Admin Instructions for 5 days 500mg on day 1 followed by 250mg on days 2- 5 6 tablet /05/2023 predniSONE (DELTASONE) 20 MG tablet Take 2 tablets by mouth daily for 2 days 4 tablet /03/2023 Scheduled Active and Recently Administ ered Medications (unrecognized section and content) Medication Order//12/2022 albuterol sulfate HFA (PROVENTIL;VENTOLIN;PROAIR) 108 (90 Base) MCG/ACT inhaler 2 puff 2 puff, Inhalation, 3 TIMES DAILY, First dose (after last modification) on 09/20/22 at 0800, Until Discontinued, Initiate RT Bronchodilator Protocol: Yes - Inpatient Protocol * 0805 (Given - Provider: Freya Marlow RCP) * 1223 (Given - Provider: Freya Marlow RCP) * 2202 (Given - Provider: Suzanne Doan ENGINEERING PSYCHOLOGIST) * 0753 (Given - Provider: Shannan Pratt RCP) * 1156 (Given - Provider: Shannan Pratt RCP) * 1803 (Given - Provider: Suzanne Doan ENGINEERING PSYCHOLOGIST) * 0900 (Given - Provider: Anjana Ozuna ENGINEERING PSYCHOLOGIST) * 1233 (Given - Provider: Anjana Ozuna RCP) * 2000 (Due) aspirin EC tablet 81 mg 81 mg, Oral, DAILY, First dose on 09/19/22 at 0100, Until Discontinued * 0901 (Given - Provider: Marium Frederick RN) * 0904 (Given - Provider: Haylee Borges RN) * 0841 (Given - Provider: Tracey Smith RN) atorvastatin (LIPITOR) tablet 40 mg 40 mg, Oral, DAILY, First dose on 09/19/22 at 0900, Until Discontinued * 0901 (Given - Provider: Marium Frederick RN) * 0904 (Given - Provider: Haylee Borges RN) * 0841 (Given - Provider: Tracey Smith RN) enoxaparin Sodium (LOVENOX) injection 30 mg 30 mg, SubCUTAneous, EVERY 12 HOURS, First dose (after last reorder) on 09/19/22 at 0100, UntilDiscontinued, Indication of Use: Prophylaxis-DVT/PE, Common Side Effects: Bruising and bleeding * 0006 (Given - Provider: Wilton Patel RN) * 1250 (Given - Provider: Marium Frederick RN) * 0027 (Given - Provider: Wilton Patel RN) * 1259 (Given - Provider: Haylee Borges RN) * 0100 (Given - Provider: Wilton Patel RN) * 1421 (Not Given - Provider: Tracey Smith RN - Reason: Patient/family refused) famotidine (PEPCID) tablet 20 mg 20 mg, Oral, DAILY, First dose on 09/19/22 at 0900, Until Discontinued * 09 (Given - Provider: Marium Frederick RN) * 09 (Given - Provider: Haylee Borges RN) * 0841 (Given - Provider: Tracey Smith RN) finasteride (PROSCAR) tablet 5 mg 5 mg, Oral, DAILY, First dose on 09/19/22 at 0900, Until Discontinued, Women should not handle crushed or broken finasteride tablets when they are or may potentially be , due to potential risk to the fetus. * 0903 (Given - Provider: Marium Frederick RN) * 0904 (Given - Provider: Haylee Borges RN) * 0841 (Given - Provider: Tracey Smith RN) lithium (LITHOBID) extended release tablet 300 mg 300 mg, Oral, EVERY 12 HOURS, First dose (after last modification) on 09/19/22 at 0900, Until Discontinued, Maintain adequate fluid and sodium intake * 900 (Given - Provider: Marium Frederick RN) * 2006 (Given - Provider: Wilton Patel RN) * 09 (Given - Provider: Haylee Borges RN) * 204 (Given - Provider: Wilton Patel RN) * 0841 (Given - Provider: Tracey Smith RN) * 2100 (Due) losartan (COZAAR) tablet 25 mg 25 mg, Oral, DAILY, First dose on 09/19/22 at 0900, Until Discontinued * 09 (Given - Provider: Marium Frederick RN) * 0903 (Given - Provider: Haylee Boregs RN) * 0841 (Given - Provider: Tracey Smith RN) mometasone-formoterol (DULERA) 200-5 MCG/ACT inhaler 2 puff 2 puff, Inhalation, 2 TIMES DAILY, First dose on 09/19/22 at 0800, Until Discontinued, Rinse mouth out with water (without swallowing) after every dose. * 0805 (Given - Provider: Freya Marlow RCP) * 2201 (Given - Provider: Suzanne Doan ENGINEERING PSYCHOLOGIST) * 752 (Given - Provider: Shannan Pratt ENGINEERING PSYCHOLOGIST) * 1802 (Given - Provider: Suzanne Doan ENGINEERING PSYCHOLOGIST) * 09 (Given - Provider: Anjana Ozuna ENGINEERING PSYCHOLOGIST) * 1999 (Due) OLANZapine (ZYPREXA) tablet 10 mg 10 mg, Oral, NIGHTLY, First dose on Wed09/18/22 at 2100, Until Discontinued * 2006 (Given - Provider: Wilton Patel RN) * 2042 (Given - Provider: Wilton Patel RN) * 2099 (Due) oseltamivir (TAMIFLU) capsule 75 mg (COMPLETED) 75 mg, Oral, 2 TIMES DAILY, 10 doses, First dose on Wed09/18/22 at 2100, Last dose on Wed09/23/22 at 0900 * 09 (Given - Provider: Marium Frederick RN) * 2006 (Given - Provider: iWlton Patel RN) * 902 (Given - Provider: Haylee Borges RN) * 2042 (Given - Provider: Wilton Patel RN) * 0841 (Given - Provider: Tracey Smith RN) predniSONE (DELTASONE) tablet 40 mg 40 mg, Oral, DAILY, First dose on Wed09/20/22 at 0900, Until Discontinued * 900 (Given - Provider: Marium Frederick RN) * 09 (Given - Provider: Haylee Borges RN) * 0841 (Given - Provider: Tracey Smith RN) selegiline (ELDEPRYL) capsule 5 mg 5 mg, Oral, 2 TIMES DAILY WITH MEALS, First dose (after last reorder) on Wed09/19/22 at 0800, Until Discontinued, Avoid aged, smoked, or fermented foods including cheese, sour cream, soy sauce, sauerkraut, yogurt, sausage, pepperoni, salami, and dried fruit. Limit caffeine. * 09 (Given - Provider: Marium Frederick RN) * 1718 (Given - Provider: Marium Frederick RN) * 09 (Given - Provider: Haylee Borges RN) * 1641 (Given - Provider: Haylee Borges RN) * 0830 (Given - Provider: Tracey Smith, LOKI) * 1700 (Due) sodium chloride flush 0.9 % injection [...] non-viscous solutions use: Peripheral IV = 5 mLMidline or Central Line = 10 mL/lumen For viscous solutions (i.e. blood components, parenteral nutrition, contrast media, or after obtaining blood sample) use: Peripheral IV = 10 mL Midline or Central Line = 20 mL/lumen * 0908 (Given - Provider: Marium Frederick RN) * 2006 (Given - Provider: Wilton Patel RN) * 0904 (Not Given - Provider: Haylee Borges RN - Reason: IV Fluid Infusing) * 2044 (Given - Provider: Wilton Patel RN) * 0923 (Given - Provider: Tracey Smith, LOKI) * 2100 (Due) tamsulosin (FLOMAX) capsule 0.4 mg 0.4 mg, Oral, DAILY, First dose on Wed09/19/22 at 0900, Until Discontinued, Do not crush or break. * 0904 (Given - Provider: Marium Frederick RN) * 0904 (Given - Provider: Haylee Borges RN) * 0841 (Given - Provider: Tracey Smith RN) Medication Order09/21////12/2022 0.9 % sodium chloride infusion IntraVENous, at 5-250 mL/hr, PRN, if patient receiving piggyback infusions and maintenance fluids are not ordered OR KVO fluids to protect IV site / prevent frequent line interruptions/ long duration, Starting on Wed09/18/22 at 2032, For piggyback infusion, administer at same rate as piggyback fora total of 25 mL. Enter 25 mL [...] Administer if oral route cannot be used. * 1832 (See Alternative - Provider: Vidya Estrada RN) * 0100 (See Alternative - Provider: Wilton Patel RN) acetaminophen (TYLENOL) tablet 650 mg(Linked Group 1) 650 mg, Oral, EVERY 6 HOURS PRN, Starting on Wed09/18/22 at 2032, Until Discontinued, Pain Mild (1-3), Fever, For temp greater than 100.4 F (38 C), Maximum dose of acetaminophen is 4000 mg from all sources in 24 hours. * 183 (Given - Provider: Vidya Estrada RN) * 0100 (Given - Provider: Wilton Patel, LOKI) iopamidol (ISOVUE-370) 76 % injection 80 mL (COMPLETED) 80 mL, IntraVENous, IMG ONCE PRN, 1 dose, Starting on Wed09/23/22 at 0942, Until Wed09/23/22 at 0942,Other * 0942 (Given - Provider: Ruth Herbert) ipratropium-albuterol (DUONEB) nebulizer solution 1 ampule 1 ampule, Inhalation, EVERY 4 HOURS PRN, Starting on Wed09/18/22 at 2032, Until Discontinued, Shortness of Breath, Initiate RT Bronchodilator Protocol: Yes - ED protocol * 1221 (Not Given - Provider: Freya Marlow [...] AM. Not for use in Patients with CrClless than 30 mL/min. ondansetron (ZOFRAN) injection 4 mg(Linked Group 2) 4 mg, IntraVENous, EVERY 6 HOURS PRN, Starting on Wed09/18/22 at 2032, Until Discontinued, Nausea,Vomiting, Administer if oral route cannot be used. [...] mL/min. Do not chew or crush. Dissolve flavoredtablets completely in 3 to 4 ounces of [...] Wed09/18/22 at 2032, Until Discontinued, Potassium Replacement, Maygive alternative linked oral order (ordered as effervescent, packet, or liquid solution) if patientunable to tolerate tablet. K Lab Replacement Action [...] hour for x number of doses., 10 mEq,IntraVENous, PRN, Starting on Wed09/18/22 at 2032, Until Discontinued, at 100 mL/hr, Potassium Replacement, K Lab Replacement Action 2.7 to 3.0 10 mEq IVPB x 6 doses (60 mEq Total) Under 2.7 CALL PROVIDER and administer 10 mEq IVPB x 6 doses (60 mEq Total) Infuse at 10 mEq/hr. Repeat Potassium lab1 hour after final administration. Protocol not for [...] Midline or Central Line = 20 mL/lumen Order Group 1: acetaminophen (TYLENOL) tablet 650 [...] Starting on Wed09/18/22 at 2032, Until Discontinued, Nausea,Vomiting
Administer if oral route cannot be used.
Group 3: potassium chloride (KLOR-CON M) extended release tablet 40 mEqJump to med 40 mEq, Oral, PRN, Starting on Wed09/18/22 at 2032, Until Discontinued, Potassium Replacement
May give alternative linked oral order (ordered as effervescent, packet, or liquid solution) ifpatient unable to tolerate tablet. K Lab & amp;nbsp; Replacement Action&am p;nbsp;3.1 to 3.5 40 mEq ORAL x 1 Under 3.1 Refer to IV replacement prot ocol Recheck K level in AM. Protocol not for use in patients with CrCl less than 30 mL/min.
Or potassium bicarb-citric acid (EFFER-K) effervescent tablet 40 mEqJump to med 40 mEq, Oral, PRN, Starting on Wed09/18/22 at 2032, Until Discontinued, Per Potassium Replacement Protocol
Administer as alternative if patient unable to tolerate oral tablet. K Lab Replacement Action 3.1 to 3.5 &a mp;nbsp; 40 mEq ORAL x 1 Under 3.1 &nb sp; Refer to IV replacement protocol Recheck K [...] 2032, Until Discontinued, at 100 mL/hr, Potassium Replacement
K Lab Replacement Action 2.7 to 3.0 10 mEq IVPB x 6 doses (60 mEq Total) Under 2.7 CALL PROVIDER and administer 10 mEq IVPB x 6 doses (60 mEq Total) Infuse at 10 mEq/hr. Repeat Potassium lab 1 hour after final administration. Protocol not for use in patients with CrCl less than 30 mL/min.
Medication Order//11/2022 morphine (PF) injection 4 mg (COMPLETED) 4 mg, IntraVENous, ONCE, 1 dose, On Wed02/19/23 at 1745, If oral and IV narcotics ordered, use oral first and only use IV if oral is ineffective or cannot take oral. Do Not give oral and IV within 1 hour of each other unless specifically ordered. * 1743 (Given - Provider: Cristian Lyons, RN) Medication Order///11/2022 0.9 % sodium chloride infusion IntraVENous, at 100 mL/hr, CONTINUOUS, Starting on Wed02/19/23 at 1745 * 1743 (New Bag - Provider: Cristian Lyons, RN) * 222 (Stopped - Provider: Deanne Larry RN) Medication Order///11/2022 iopamidol (ISOVUE-370) 76 % injection 80 mL (COMPLETED) 80 mL, IntraVENous, IMG ONCE PRN, 1 dose, Starting on Wed02/19/23 at 1726, Until Discontinued, Other * 194 (Given - Provider: Carin Duarte) Medication Order///03/2023 HYDROcodone-acetaminophen (NORCO) 5-325 MG per tablet 1 tablet (COMPLETED) 1 tablet, Oral, ONCE, 1 dose, On Wed02/24/23 at 1745, Maximum dose of acetaminophen is 4000 mg from all sources in 24 hours. * 1730 (Given - Provider: Ward Foy, LOKI) Medication Order/// acetaminophen (TYLENOL) tablet 650 mg (COMPLETED) 650 mg, Oral, ONCE, 1 dose, On Wed06/11/23 at 1545, Maximum dose of acetaminophen is 4000 mg from all sources in 24 hours. * 1540 (Given - Provider: Petra Wilkinson, LOKI) Medication Order/// iopamidol (ISOVUE-370) 76 % injection 80 mL (COMPLETED) 80 mL, IntraVENous, IMG ONCE PRN, 1 dose, Starting on Wed02/05/24 at 1704, Until Discontinued, Other * 191 (Given - Provider: Hillary Man) Goals (unrecognized section and content) [...] BE BASED ON THE PRIMARY CLINICAL RECORDS. [employer] provides no warranty or guarantee of the accuracy or completeness of information in this document.
--- OUTSIDE RECORDS SUMMARY | 2025-07-24 03:32 | XMS_ITS | Clinical Summary ---
Author Organization [facility] Address [id number] [address] [place] [address] Care Team Providers Care In Service Education Teacher Name Role Phone Bon Aquino MD Primary Care Provider [phone] Allergies No known active allergies Medications MedicationSigDispense QuantityRefillsLast FilledStart DateEnd DateStatus albuterol (VENTOLIN HFA) 90 mcg/actuation inhaler Inhale 2 puffs 4 (four) times a day.02/08/2016Active carbidopa-levodopa (SINEMET CR) 50-200 mg per CR tablet Take 1 tablet by mouth 2 (two) times a day.02/08/2016Active selegiline (ELDEPRYL) 5 mg capsule Take 5 mg by mouth 2 (two) times a day before meals.02/08/2016Active lithium (ESKALITH) 450 mg CR tablet Take 450 mg by mouth daily.02/08/2016Active lithium carbonate 300 mg capsule Take 600 mg by mouth respiratory nightly.02/08/2016Active trihexyphenidyl (ARTANE) 5 mg tablet Take 5 mg by mouth 3 (three) times a day with meals.02/08/2016Active nabumetone (RELAFEN) 750 mg tablet Take 1,500 mg by mouth daily.02/08/2016Active finasteride (PROSCAR) 5 mg tablet Take 5 mg by mouth daily.02/08/2016Active tamsulosin (FLOMAX) 0.4 mg capsule,extended release 24hr Take 0.4 mg by mouth daily. 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, unspecified 06/23/2024Iliotibial band capezycf48/04/2024Stage 2 chronic kidney disease due to benign htpqphtkbrti89/04/2024lass 1 obesity due to excess calories with serious comorbidity in adult06/23/20241297Prgwgllacmb52/04/2024PH with lower urinary tract symptoms without urinary uhgsrmpumzo81/04/2024White matter disease 06/23/2024Gastroesophageal reflux xdyoxmd1006/23/2024ognitive impairment 06/23/2024 Encounters DateTypeDepartmentCare UlsmFslbkfqganm95/17/2025ontinuing Care [facility] [address] [place] [id number] Fabien Macias DO Essential hypertension (Primary Dx); Parkinson's disease, unspecified whether dyskinesia present, unspecified whether manifestations fluctuate ([facility]); Infected sebaceous cyst; Right leg weakness; Chronic obstructive pulmonary disease, unspecified COPD type ([facility])06/01/2025 Continuing Care [facility] Family [facility] [address] [place] [phone] Fabien Macias DO Wernicke's encephalopathy (Primary Dx); Chronic obstructive pulmonary disease, unspecified [facility]); Protein-calorie malnutrition, unspecified severityfrom Last 3 Months Social History Tobacco UseTypesPacks/DayYears UsedDateSmoking Tobacco: Never AssessedChildcare AnswerDate ItcggxkyShfunchxwTbvqbcg91/12/2019EmploymentAnswerDate Recorded BykbocqsowRbujpkr14/12/2019Purpose - LifeAnswerDate RecordedPurpose and direction in yceeZihoazz02/11/2021ex and Gender InformationValueDate Recorded Sex Assigned at BirthNot on fileLegal FdkVkwg2304/25/2015 11:34 AM EDTGender IdentityNot on fileSexual OrientationNot on file Last Filed Vital Signs Vital SignReadingTime TakenCommentsBlood Ezmaoyma563/8410/ 5:14 PM EDT Boqyc673107/06/2025 5:14 PM SKCVlmqbxpfqkq21.8 ??C (98.3 ??F)07/06/2025 5:14 PM EDTRespiratory Kbae6327 5:14 PM EDTOxygen Sodncaeqdp27%07/06/2025 5:14 PM EDTInhaled Oxygen Concentration--Seqdwr77 kg (216 lb)07/06/2025 5:14 PM EDT Nbgyqd952.2 cm (5' 7 )02/08/2016 9:00 AM EDTBody Mass Index33.8302/08/2016 9:00 AM EDT Plan of Treatment Health MaintenanceDue DateLast DoneCommentsDepression Zvyvyoqfs05/26/1965Tobacco Vizmdjebl92/26/1965DTaP,Tdap and Td Vaccines (1 - Tdap)1972Zoster (Shingles) Vaccine (1 of 2)2003RSV ( or age 60+ yrs) (1 - Risk 60- 74 years 1-dose series)2013Fall Risk Nfmyyvoxl53/26/2018Influenza Vaccine 05/21/2025dult BMI Mnccneisr43 Medical Devices Not on file Insurance Care Teams Team MemberRelationshipSpecialtyStart DateEnd Date Bon Aquino MD [facility]02/05/16
--- OUTSIDE RECORDS SUMMARY | 2025-07-24 03:32 | XMS_ITS | Clinical Summary ---
Author Organization [facility] Address [address] [place] [address] Care Team Providers Care Medical Transcription Name Role Phone Unavailable Primary Care Provider Unavailabl e Social History Tobacco UseTypesPacks/DayYears UsedDateSmoking Tobacco: Never AssessedSex and Gender InformationValueDate RecordedSex Assigned at BirthNot on fileLegal Sex Male03/18/2022 10:30 PM EDTGender IdentityNot on fileSexual OrientationNot on file Last Filed Vital Signs Vital SignReadingTime TakenCommentsBlood Xzjcpaxh313/8507 10:00 AM EDT Elbwt7492 11:05 AM EDTTemperature--Respiratory Rate--Oxygen Saturation 89%04/05/2020 10:01 AM EDTInhaled Oxygen Concentration--Vutvos79.6 kg (171 lb) 04/05/2020 9:56 AM FOFPrdkdr261.2 cm (5' 7 )04/05/2020 9:53 AM EDTBody Mass Index26.7807 9:53 AM EDT Plan of Treatment Not on file
[2025-07-24 03:50] LABS: Hematocrit 36.8 % (42.0-54.0); Hemoglobin 11.9 g/dL (14.0-18.0); Immature Granulocytes Abs Auto 0.02 10^3/uL (0.00-0.03); Immature Granulocytes Pct Auto 0.3 % (0.0-0.5); Lymphocytes Absolute Auto 2.3 10^3/uL (1.2-3.8); Mean Corpuscular HGB Conc 32.3 g/dL (29.9-35.2); Mean Corpuscular Hemoglobin 30.1 pg (25.9-34.0); Mean Corpuscular Volume 93.2 fL (80.0-94.0); Platelet Count 172 10^3/uL (150-450); Red Blood Count 3.95 10^6/uL (4.70-6.10); White Blood Count 6.2 10^3/uL (4.0-11.0)
[2025-07-24 03:54] LABS: Anion Gap 7.6; Blood Urea Nitrogen 9.0 mg/dL (7.0-18.0); Calcium 8.5 mg/dL (8.5-10.1); Carbon Dioxide 30.1 mmol/L (21.0-32.0); Chloride 109 mmol/L (98-107); Estimated GFR (African America >60 (>=60 mL/min/1.73m^2); Estimated GFR (Non-African Ame >60 (>=60 mL/min/1.73m^2); Glucose 96 mg/dL (74-106); Potassium 3.7 mmol/L (3.5-5.1); Sodium 143 mmol/L (136-145)
== END 2025-07-24 03:29 | disposition home or self-care (01) ==
LOC: LAB 03:28
PROVIDERS: PCP Family Medicine; Visit Provider Family Medicine
DX: J44.9 Chronic obstructive pulmonary disease, unspecified (principal)
CPT/HCPCS: 36415; 80048; 85025